=== PATIENT | female | born 1955 | race Caucasian/White ===

== ENCOUNTER → 2016-03-05 | Outpatient (CLI) | payer MEDICARE, MEDICAID ==
[~2016-03-05] MED LIST: ALPR1TAB3 PO; AMOX500C PO; ATOR1TAB18 PO; CITA20TA4 PO; CITA40TA4 PO; FLUC100T2 PO; GLIP5TAB8 PO; HUMALOG SQ; HYDR2.5O TOPICAL; LANTINJ SQ; LANTUS2P SQ; MELO7.5T4 PO; METF1000 PO; MUPI2OIN TOPICAL; NAPR250T PO; NYST15T TOPICAL; SULF500T3 PO; TRAM50TA PO; TRAZ100T4 PO; TRAZ50TA12 PO; TRIA40P I-ARTICULR; XARE20TA PO; ZOLP10TA3 PO; [UNRECOGNIZED DRUG - CODE] TOPICAL
[2016-03-05 16:03] LABS: HEMATOCRIT 40.4 % (35.0-46.0); MEAN CELL VOLUME 89.6 FL (80.0-100.0); MEAN CORPUSCULAR HEMOGLOBIN 29.6 PG (27.0-34.0); MEAN CORPUSCULAR HGB CONC 33.1 % (32.0-36.0); PLATELET COUNT 247 TH/MM3 (150-450); RED BLOOD COUNT 4.51 MIL/MM3 (4.00-5.30); REVIEW FLAG FINAL
[2016-03-05 16:17] LABS: ALKALINE PHOSPHATASE 118 U/L (45-117); ALT (GPT) 27 U/L (10-53); ANION GAP 7 MEQ/L (5-15); AST (GOT) 19 U/L (15-37); BICARBONATE 25.5 MEQ/L (21.0-32.0); BLOOD UREA NITROGEN 13 MG/DL (7-18); CHLORIDE 106 MEQ/L (98-107); GLOMERULAR FILTRATION RATE 50 ML/MIN (>89); GLUCOSE,FASTING 210 MG/DL (74-99); HDL CHOLESTEROL 55.1 MG/DL (40.0-60.0); LDL CHOLESTEROL 50 MG/DL (0-99); POTASSIUM 3.8 MEQ/L (3.5-5.1); SODIUM (NA) 138 MEQ/L (136-145); TOTAL BILIRUBIN ADULT 0.7 MG/DL (0.2-1.0)
[2016-03-05 17:30] LABS: HEMOGLOBIN A1a 1.2 %; HEMOGLOBIN A1b 2.5 %; HEMOGLOBIN Ao 79.4 %; HEMOGLOBIN LA1C 2.8 %; HEMOGLOBIN P3 4.4 %
== END ==
LOC: PLAB 12:02
PROVIDERS: ATTEND Family Medicine
DX: E11.9 Type 2 diabetes mellitus without complications (principal)
CPT/HCPCS: 36415; 80053; 80061; 83036; 85027

== ENCOUNTER → 2016-06-26 | Outpatient (CLI) | payer MEDICARE, MEDICAID ==
[~2016-06-26] MED LIST changes: +INSU10IN SQ; -LANTUS2P SQ; +MESA4ENE2 RECTAL; +PRED10 PO; +TRAZ100T6 PO
[2016-06-26 17:01] LABS: ANION GAP 8 MEQ/L (5-15); BICARBONATE 24.3 MEQ/L (21.0-32.0); BLOOD UREA NITROGEN 20 MG/DL (7-18); CHLORIDE 106 MEQ/L (98-107); POTASSIUM 4.9 MEQ/L (3.5-5.1); SODIUM (NA) 138 MEQ/L (136-145)
[2016-06-26 17:07] LABS: ALKALINE PHOSPHATASE 113 U/L (45-117); ALT (GPT) 18 U/L (10-53); AST (GOT) 19 U/L (15-37); GLOMERULAR FILTRATION RATE 34 ML/MIN (>89); TOTAL BILIRUBIN ADULT 0.2 MG/DL (0.2-1.0)
== END ==
LOC: PLAB 15:20
PROVIDERS: ATTEND Family Medicine
DX: B37.9 Candidiasis, unspecified (principal)
CPT/HCPCS: 36415; 80053

== ENCOUNTER → 2016-07-29 | Outpatient (CLI) | payer MEDICARE, MEDICAID ==
[~2016-07-29] MED LIST changes: -TRAZ50TA12 PO
[2016-07-29 20:10] LABS: HEMOGLOBIN A1a 1.3 %; HEMOGLOBIN A1b 2.3 %; HEMOGLOBIN Ao 80.2 %; HEMOGLOBIN LA1C 3.1 %; HEMOGLOBIN P3 4.6 %
== END ==
LOC: PLAB 15:53
PROVIDERS: ATTEND Family Medicine
DX: E11.9 Type 2 diabetes mellitus without complications (principal)
CPT/HCPCS: 36415; 83036

== ENCOUNTER → 2016-08-13 | Outpatient (CLI) | payer MEDICARE, MEDICAID ==
[~2016-08-13] MED LIST changes: -AMOX500C PO; -CITA20TA4 PO; -FLUC100T2 PO; -GLIP5TAB8 PO; -HYDR2.5O TOPICAL; -INSU10IN SQ; -MESA4ENE2 RECTAL; -METF1000 PO; -NAPR250T PO; -NYST15T TOPICAL; -PRED10 PO; -TRAM50TA PO; -TRAZ100T6 PO; -TRIA40P I-ARTICULR; -ZOLP10TA3 PO; -[UNRECOGNIZED DRUG - CODE] TOPICAL
[2016-08-13 16:51] LABS: AUTOMATED NEUTROPHIL # 6.6 TH/MM3 (1.8-7.7); BASOPHIL # 0.1 TH/MM3 (0-0.2); BASOPHIL % 0.8 % (0.0-2.0); EOSINOPHIL # 0.3 TH/MM3 (0-0.4); EOSINOPHIL % 3.1 % (0.0-4.0); HEMATOCRIT 39.5 % (35.0-46.0); HEMO FLAGS DIFF FINAL; LYMPH % 23.3 % (9.0-44.0); LYMPHOCYTE # 2.3 TH/MM3 (1.0-4.8); MEAN CELL VOLUME 90.6 FL (80.0-100.0); MEAN CORPUSCULAR HEMOGLOBIN 30.1 PG (27.0-34.0); MEAN CORPUSCULAR HGB CONC 33.2 % (32.0-36.0); MONO % 5.8 % (0.0-8.0); PLATELET COUNT 269 TH/MM3 (150-450); RED BLOOD COUNT 4.36 MIL/MM3 (4.00-5.30); WHITE BLOOD COUNT 9.8 TH/MM3 (4.0-11.0)
== END ==
LOC: PLAB 14:09
PROVIDERS: ATTEND Family Medicine
DX: K51.90 Ulcerative colitis, unspecified, without complications (principal)
CPT/HCPCS: 36415; 85025

== ENCOUNTER 2016-08-23 18:29 | Inpatient (IN) | payer MEDICARE, OTHER ==
[~2016-08-23] VITALS: Ht 175.3 cm; Wt 92.0 kg
[~2016-08-23 18:29] MED LIST changes: -HUMALOG SQ; +INSU10IN SQ
[2016-08-23 18:34] VITALS: BP 132/65; PULSE 104; RESP 26; TEMP 98.2; O2SAT 98
--- NOTE | 2016-08-23 18:40 | PD ---
Physical Exam Narrative 60 y/o female w/ hx of ulcerative colitis, DM, presents for evaluation of abdominal, anxiety, hyperglycemia. Vital signs reviewed. Seen at triage desk. Awaiting bed placement. Data Data Last Documented VS Vital Signs Date Time Temp Pulse Resp B/P Pulse Ox O2 Delivery O2 Flow Rate FiO2 08/23/16 18:34 98.2 104 26 132/65 98 MDM Medical Record Reviewed: Yes Supervised Visit with ORQUIDEA: No Sonu Romero Aug 23, 2016 18:40
[2016-08-23 19:01] VITALS: BP 130/63; PULSE 59; RESP 18; O2SAT 100
[2016-08-23] MEDS ORDERED: SODIUM CHLOR 0.9% 1000 ML INJ 1,000 ML IV SCH (19:18)
[2016-08-23] MEDS ORDERED: PRED10 PO (19:22)
[2016-08-23] MEDS ORDERED: LANTINJ SQ (19:22)
[2016-08-23] MEDS ORDERED: HUMALOG SQ (19:22)
[2016-08-23] MEDS ORDERED: ONDANSETRON HCL 4 MG/2 ML VIAL IVP ONE (19:30)
[2016-08-23] MEDS ORDERED: SODIUM CHLORIDE 0.9% FLUSH 10 ML FLUSH IV FLUSH PRN ×2 (19:30→22:00)
[2016-08-23] MEDS ORDERED: MORPHINE SULFATE 4 MG/ML INJ IV PUSH ONE (19:30)
[2016-08-23 19:58] VITALS: BP 122/62; PULSE 50; RESP 20; O2SAT 100
[2016-08-23 20:02] LABS: AUTOMATED NEUTROPHIL # 8.4 TH/MM3 (1.8-7.7); BASOPHIL % 0.1 % (0.0-2.0); HEMATOCRIT 39.2 % (35.0-46.0); HEMO FLAGS DIFF FINAL; LYMPH % 7.7 % (9.0-44.0); LYMPHOCYTE # 0.7 TH/MM3 (1.0-4.8); MEAN CELL VOLUME 91.8 FL (80.0-100.0); MEAN CORPUSCULAR HEMOGLOBIN 29.8 PG (27.0-34.0); MEAN CORPUSCULAR HGB CONC 32.5 % (32.0-36.0); MONO % 2.5 % (0.0-8.0); NEUT % 89.7 % (16.0-70.0); PLATELET COUNT 279 TH/MM3 (150-450); RED BLOOD COUNT 4.27 MIL/MM3 (4.00-5.30); RED CELL DISTRIBUTION WIDTH 13.8 % (11.6-17.2); WHITE BLOOD COUNT 9.3 TH/MM3 (4.0-11.0)
[2016-08-23 20:14] LABS: APTT (PATIENT) 23.5 SEC (24.3-30.1); PROTHROMBIN TIME - PATIENT 10.7 SEC (9.8-11.6)
[2016-08-23 20:26] LABS: ALKALINE PHOSPHATASE 104 U/L (45-117); ALT (GPT) 13 U/L (10-53); ANION GAP 12 MEQ/L (5-15); AST (GOT) 5 U/L (15-37); BICARBONATE 21.5 MEQ/L (21.0-32.0); BLOOD UREA NITROGEN 34 MG/DL (7-18); CHLORIDE 92 MEQ/L (98-107); GLOMERULAR FILTRATION RATE 26 ML/MIN (>89); SODIUM (NA) 125 MEQ/L (136-145); TOTAL BILIRUBIN ADULT 0.3 MG/DL (0.2-1.0)
[2016-08-23 20:27] LABS: POTASSIUM 4.7 MEQ/L (3.5-5.1)
[2016-08-23] MEDS ORDERED: MESA4ENE2 RECTAL (20:37)
[2016-08-23] MEDS ORDERED: SODIUM CHLOR 0.9% 1000 ML INJ 1,000 ML IV ONE (20:45)
[2016-08-23] MEDS ORDERED: INSULIN HUMAN REGULAR 1,000 UNITS/10 ML VIAL SQ ONE (20:45)
--- NOTE | 2016-08-23 20:47 | PD ---
HPI Chief Complaint: Abdominal Pain Time Seen by Provider: 19:06 Travel History International Travel<30 days: No Contact w/Intl Traveler<30days: No Traveled to known affect area: No History of Present Illness HPI Patient is a 60 year old female with history of UC and DM II, presents to ER with c/o of abdominal pain for the past 3 weeks. Patient reports that she has been following up with her bioinformatics research technician, Dr. Eren Alvarez, reports that he started her on a course of prednisone on August 16, 2016 (60 mg 7 days, 50 mg in 7 days, 40 mg 7 days...). Patient reports that the steroids are not helping her with her pain. Patient reports that she is still having increased lower abdominal pain and cramping and diarrhea. Patient reports that she has been having multiple bouts of diarrhea all day, reports max of around 5 episodes of diarrhea. Patient reports that with this steroids, she has not been able to control her blood sugars with her insulin. She did give herself 15 units of insulin this morning. Patient with no fever/chills. No other c/o. PFSH Past Medical History Hx Anticoagulant Therapy: Yes (XARALTO) Arthritis: No Asthma: No Autoimmune Disease: No Blood Disorders: No Bipolar Disorder: Yes Anxiety: Yes Depression: Yes Heart Rhythm Problems: No Cancer: No Cardiovascular Problems: No High Cholesterol: Yes (on Lipitor) Chemotherapy: No Chest Pain: Yes (angina sometimes) Congestive Heart Failure: No COPD: No Cerebrovascular Accident: No Diabetes: Yes Patient Takes Glucophage: No Diminished Hearing: No Deep Vein Thrombosis: Yes (STOMACH AND INTO CHEST) Endocrine: Yes (diabetes since 2001) Gastrointestinal Disorders: Yes GERD: No Glaucoma: No Genitourinary: No Headaches: Yes Hepatitis: No Hiatal Hernia: No Hypertension: No Immune Disorder: No Kidney Stones: No Musculoskeletal: Yes (arthritis in both knees) Neurologic: No Psychiatric: Yes (depression and anxiety, told "bipolar") Reproductive: No Respiratory: Yes (PE at 29 years of age) Integumentary: Yes (HERPES) Immunizations Current: Yes Myocardial Infarction: No Radiation Therapy: No Renal Failure: No Seizures: No Sickle Cell Disease: No Sleep Apnea: No Thyroid Disease: No Ulcer: Yes (ULCERATIVE COLLITIS) Tetanus Vaccination: > 5 Years Influenza Vaccination: Yes ?: Not Menopausal: Yes Tubal Ligation: Yes Past Surgical History Abdominal Surgery: Yes (LARGE INTESTINE REMOVED) AICD: No Cardiac Surgery: No Ear Surgery: No Endocrine Surgery: No Eye Surgery: No Genitourinary Surgery: No Gynecologic Surgery: Yes (TUBAL LIGATION) Hysterectomy: Yes Neurologic Surgery: No Oral Surgery: No Pacemaker: No Thoracic Surgery: No Other Surgery: Yes (DILITATION OF ESOPHAGUS) Social History Alcohol Use: No Tobacco Use: No Substance Use: No Allergies-Medications (Allergen,Severity, Reaction): Coded Allergies: No Known Allergies (Verified , 08/23/16) Reported Meds & Prescriptions Reported Meds & Active Scripts Active Humalog Kwikpen Pen Inj (Insulin Lispro (Human) Inj) 600 Unit/3 Ml Pen 5 Units SQ AC DINNER Meloxicam 7.5 Mg Tab 15 Mg PO DAILY Mupirocin Topical (Mupirocin) 2 % Oint 1 Applic TOPICAL BID Alprazolam 1 Mg Tab 1 Mg PO Q8H PRN Atorvastatin (Atorvastatin Calcium) 80 Mg Tab 80 Mg PO HS Xarelto (Rivaroxaban) 20 Mg Tab 20 Mg PO DAILY Reported Mesalamine Enema (Mesalamine) 4 Gm/60 Ml Enem 4 Gm RECTAL HS Humalog Inj (Insulin Human Lispro) 1,000 Unit/10 Ml Vial 5 Units SQ AC DINNER Prednisone 10 Mg Tab 10 Mg PO DAILY Lantus Solostar Pen Inj (Insulin Glargine) 300 Unit/3 Ml Pen 15 Units SQ HS Sulfasalazine Unknown Strength Tab Unknown Dose PO Q8H Review of Systems General / Constitutional: No: Fever Eyes: No: Visual changes HENT: No: Headaches Cardiovascular: No: Chest Pain or Discomfort Respiratory: No: Shortness of Breath Gastrointestinal: Positive: Diarrhea, Abdominal Pain Genitourinary: No: Dysuria Musculoskeletal: No: Pain Skin: No Rash Neurologic: No: Weakness Psychiatric: Positive: Anxiety, No: Depression Endocrine: No: Polydipsia Hematologic/Lymphatic: No: Easy Bruising Physical Exam Narrative GENERAL: Moderate distress SKIN: Focused skin assessment warm/dry. HEAD: Atraumatic. Normocephalic. EYES: Pupils equal and round. No scleral icterus. No injection or drainage. ENT: No nasal bleeding or discharge. Mucous membranes pink and moist. NECK: Trachea midline. No JVD. CARDIOVASCULAR: Regular rate and rhythm. No murmur appreciated. RESPIRATORY: No accessory muscle use. Clear to auscultation. Breath sounds equal bilaterally. GASTROINTESTINAL: Abdomen soft, non-tender, patient with increased tenderness to lower abdomen MUSCULOSKELETAL: No obvious deformities. No clubbing. No cyanosis. No edema. NEUROLOGICAL: Awake and alert. No obvious cranial nerve deficits. Motor grossly within normal limits. Normal speech. PSYCHIATRIC: anxious on exam Data Data Last Documented VS Vital Signs Date Time Temp Pulse Resp B/P Pulse Ox O2 Delivery O2 Flow Rate FiO2 08/23/16 19:58 50 20 122/62 100 Room Air 08/23/16 18:34 98.2 Orders Complete Blood Count With Diff (08/23/16 19:18) Comprehensive Metabolic Panel (08/23/16 19:18) Lipase (08/23/16 19:18) Lactic Acid (08/23/16 19:18) Prothrombin Time / Inr (Pt) (08/23/16 19:18) Act Partial Throm Time (Ptt) (08/23/16 19:18) Urinalysis - C+S If Indicated (08/23/16 19:18) Iv Access Insert/Monitor (08/23/16 19:18) Ecg Monitoring (08/23/16 19:18) Oximetry (08/23/16 19:18) Morphine Inj (Morphine Inj) (08/23/16 19:30) Ondansetron Inj (Zofran Inj) (08/23/16 19:30) Sodium Chlor 0.9% 1000 Ml Inj (Ns 1000 M (08/23/16 19:18) Sodium Chloride 0.9% Flush (Ns Flush) (08/23/16 19:30) Electrocardiogram (08/23/16 19:18) Bedside Glucose JOANNE.AC&HS (08/23/16 19:18) Ct Abd/Pel W/O Iv Contrast (08/23/16 20:30) Insulin Human Regular Inj (Novolin R Inj (08/23/16 20:45) Sodium Chlor 0.9% 1000 Ml Inj (Ns 1000 M (08/23/16 20:45) Piperacil-Tazo 3.375 Gm Premix (Zosyn 3. (08/23/16 21:00) Sodium Chloride 0.9% Flush (Ns Flush) (08/23/16 21:00) Blood Culture (08/23/16 20:47) Labs Laboratory Tests Test 08/23/16 19:30 White Blood Count 9.3 TH/MM3 Red Blood Count 4.27 MIL/MM3 Hemoglobin 12.7 GM/DL Hematocrit 39.2 % Mean Corpuscular Volume 91.8 FL Mean Corpuscular Hemoglobin 29.8 PG Mean Corpuscular Hemoglobin 32.5 % Concent Red Cell Distribution Width 13.8 % Platelet Count 279 TH/MM3 Mean Platelet Volume 9.9 FL Neutrophils (%) (Auto) 89.7 % Lymphocytes (%) (Auto) 7.7 % Monocytes (%) (Auto) 2.5 % Eosinophils (%) (Auto) 0.0 % Basophils (%) (Auto) 0.1 % Neutrophils # (Auto) 8.4 TH/MM3 Lymphocytes # (Auto) 0.7 TH/MM3 Monocytes # (Auto) 0.2 TH/MM3 Eosinophils # (Auto) 0.0 TH/MM3 Basophils # (Auto) 0.0 TH/MM3 CBC Comment DIFF FINAL Differential Comment Prothrombin Time 10.7 SEC Prothromb Time International 1.0 RATIO Ratio Activated Partial 23.5 SEC Thromboplast Time Sodium Level 125 MEQ/L Potassium Level 4.7 MEQ/L Chloride Level 92 MEQ/L Carbon Dioxide Level 21.5 MEQ/L Anion Gap 12 MEQ/L Blood Urea Nitrogen 34 MG/DL Creatinine 1.93 MG/DL Estimat Glomerular Filtration 26 ML/MIN Rate Random Glucose 842 MG/DL Lactic Acid Level 3.6 mmol/L Calcium Level 9.1 MG/DL Total Bilirubin 0.3 MG/DL Aspartate Amino Transf 5 U/L (AST/SGOT) Alanine Aminotransferase 13 U/L (ALT/SGPT) Alkaline Phosphatase 104 U/L Total Protein 6.7 GM/DL Albumin 3.1 GM/DL Lipase 191 U/L [facility] [place] Medical Decision Making Medical Screen Exam Complete: Yes Emergency Medical Condition: Yes Interpretation(s) EKG at 2002: Sinus nisha at 44bpm, qt/qtc: 453/405, no acute st or t wave changes Vital Signs Date Time Temp Pulse Resp B/P Pulse Ox O2 Delivery O2 Flow Rate FiO2 08/23/16 19:58 50 20 122/62 100 Room Air 08/23/16 19:01 59 18 130/63 100 08/23/16 18:34 98.2 104 26 132/65 98 Differential Diagnosis Ulcerative colitis, electrolyte abnormality, hyperglycemia, anxiety reaction, diverticulitis, pneumatosis intestinalis, ischemic bowel Narrative Course 60 year old female who presents to ER with c/o of abdominal pain with hyperglycemia. Patient was placed on equipment monitor phototypesetting upon presentation to the ER. EKG obtained. BS "High" on glucometer. IVF administered. Labs including UA ordered. CT of abdomen and pelvis ordered to evaluate her abdominal pain. BS 842- insulin 10 units ordered, [address] pending Lactic acid 3.6 - will panculture and administer IVF Vital Signs Date Time Temp Pulse Resp B/P Pulse Ox O2 Delivery O2 Flow Rate FiO2 08/23/16 19:58 50 20 122/62 100 Room Air 08/23/16 19:01 59 18 130/63 100 08/23/16 18:34 98.2 104 26 132/65 98 Laboratory Tests Test 08/23/16 19:30 White Blood Count 9.3 TH/MM3 (4.0-11.0) Red Blood Count 4.27 MIL/MM3 (4.00-5.30) Hemoglobin 12.7 GM/DL (11.6-15.3) Hematocrit 39.2 % (35.0-46.0) Mean Corpuscular Volume 91.8 FL (80.0-100.0) Mean Corpuscular Hemoglobin 29.8 PG (27.0-34.0) Mean Corpuscular Hemoglobin 32.5 % Concent (32.0-36.0) Red Cell Distribution Width 13.8 % (11.6-17.2) Platelet Count 279 TH/MM3 (150-450) Mean Platelet Volume 9.9 FL (7.0-11.0) Neutrophils (%) (Auto) 89.7 % (16.0-70.0) Lymphocytes (%) (Auto) 7.7 % (9.0-44.0) Monocytes (%) (Auto) 2.5 % (0.0-8.0) Eosinophils (%) (Auto) 0.0 % (0.0-4.0) Basophils (%) (Auto) 0.1 % (0.0-2.0) Neutrophils # (Auto) 8.4 TH/MM3 (1.8-7.7) Lymphocytes # (Auto) 0.7 TH/MM3 (1.0-4.8) Monocytes # (Auto) 0.2 TH/MM3 (0-0.9) Eosinophils # (Auto) 0.0 TH/MM3 (0-0.4) Basophils # (Auto) 0.0 TH/MM3 (0-0.2) CBC Comment DIFF FINAL Differential Comment Prothrombin Time 10.7 SEC (9.8-11.6) Prothromb Time International 1.0 RATIO Ratio Activated Partial 23.5 SEC Thromboplast Time (24.3-30.1) Sodium Level 125 MEQ/L (136-145) Potassium Level 4.7 MEQ/L (3.5-5.1) Chloride Level 92 MEQ/L (98-107) Carbon Dioxide Level 21.5 MEQ/L (21.0-32.0) Anion Gap 12 MEQ/L (5-15) Blood Urea Nitrogen 34 MG/DL (7-18) Creatinine 1.93 MG/DL (0.50-1.00) Estimat Glomerular Filtration 26 ML/MIN (>89) Rate Random Glucose 842 MG/DL (74-106) Lactic Acid Level 3.6 mmol/L (0.4-2.0) Calcium Level 9.1 MG/DL (8.5-10.1) Total Bilirubin 0.3 MG/DL (0.2-1.0) Aspartate Amino Transf 5 U/L (15-37) (AST/SGOT) Alanine Aminotransferase 13 U/L (10-53) (ALT/SGPT) Alkaline Phosphatase 104 U/L (45-117) Total Protein 6.7 GM/DL (6.4-8.2) Albumin 3.1 GM/DL (3.4-5.0) Lipase 191 U/L (73-393) Last Impressions Abdomen/Pelvis CT 08/23/162029 Signed Impressions: Service Date/Time: Tuesday, August 23, 2016 20:52 - CONCLUSION: 1. Nonobstructive bowel gas pattern. No oral contrast was given limiting the sensitivity. 2. Unremarkable gallbladder. 3. Calcified leiomyomata in the uterus. Elliott Morillo MD WBC: 9.3, lactic acid 3.6 - patient has been pancultured, Zosyn administered for broad-spectrum coverage. Blood sugars 842: 10 units insulin administered, will continue to monitor bs Last Impressions Abdomen/Pelvis CT 08/23/162029 Signed Impressions: Service Date/Time: Tuesday, August 23, 2016 20:52 - CONCLUSION: 1. Nonobstructive bowel gas pattern. No oral contrast was given limiting the sensitivity. 2. Unremarkable gallbladder. 3. Calcified leiomyomata in the uterus. Elliott Morillo MD ct unremarkable. i did review all incidental studies with patient in detail. plan to admit for lactic acidosis and intractable abdominal pain and hyperglycemia case reviewed with dr. serra who accepts pt to service Diagnosis Primary Impression: Lactic acid increased Additional Impressions: Hyperglycemia due to type 2 diabetes mellitus Abdominal pain Renal insufficiency Hyponatremia Admitting Information Admitting Physician Requests: Observation Melisa Johnson DO Aug 23, 2016 20:47
[2016-08-23] MEDS ORDERED: SODIUM CHLORIDE 0.9% FLUSH 10 ML FLUSH IVF PRN (21:00)
[2016-08-23] MEDS ORDERED: PIPERACIL-TAZO 3.375 GM PREMIX 50 ML IV ONE (21:00)
--- NOTE | 2016-08-23 21:21 | RADRPT ---
EXAM DATE/TIME: 08/23/2016 20:52 [facility] COMPARISON: No previous studies available for comparison. INDICATIONS : Upper quadrant abdominal pain. ORAL CONTRAST: No oral contrast ingested. RADIATION DOSE: 11.85 CTDIvol (mGy) MEDICAL HISTORY : Deep venous thrombosis. Gastroesophageal reflux disease. Ulcerative colitis.Diabetes SURGICAL HISTORY : Hysterectomy. Colon resection.Tubal ligation. ENCOUNTER: Initial ACUITY: 1 week PAIN SCALE: 10/10 LOCATION: Bilateral upper quadrant TECHNIQUE: Volumetric scanning of the abdomen and pelvis was performed. Using automated exposure control and ad justment of the mA and/or kV according to patient size, radiation dose was kept as low as reasonably achievable to obtain optimal diagnostic quality images. DICOM format image data is available electro nically for review and comparison. FINDINGS: LOWER LUNGS: The visualized lower lungs are clear. LIVER: Homogeneous density without lesion. There is no dilation of the biliary tree. No calcified gallston es. SPLEEN: Normal size without lesion. PANCREAS: Within normal limits. KIDNEYS: Normal in size and shape. There is no mass, stone, or hydronephrosis. ADRENAL GLANDS: Within normal limits. VASCULAR: There is no aortic aneurysm. BOWEL/MESENTERY: The stomach, small bowel, and colon demonstrate no acute abnormality. There is no free intraperitone al air or fluid. ABDOMINAL WALL: Within normal limits. RETROPERITONEUM: There is no lymphadenopathy. BLADDER: No wall thickening or mass. REPRODUCTIVE: There are flocculent calcifications in the uterus consistent with calcified leiomyoma. INGUINAL: There is no lymphadenopathy or hernia. MUSCULOSKELETAL: Within normal limits for patient age. CONCLUSION: 1. Nonobstructive bowel gas pattern. No oral contrast was given limiting the sensitivity. 2. Unremarkable gallbladder. 3. Calcified leiomyomata in the uterus. Elliott Morillo MD on August 23, 2016 at 21:17 Board Certified Radiologist. This report was verified electronically.
[2016-08-23] MEDS ORDERED: ACETAMINOPHEN 325 MG TAB PO PRN (22:00)
[2016-08-23] MEDS ORDERED: SENNOSIDES 8.6 MG TAB PO PRN (22:00)
[2016-08-23] MEDS ORDERED: BISACODYL 10 MG SUPP RECTAL PRN (22:00)
[2016-08-23] MEDS ORDERED: LACTULOSE SYRUP 20 GM/30 ML CUP PO PRN (22:00)
[2016-08-23] MEDS ORDERED: MAGNESIUM HYDROXIDE SUSP 30 ML CUP PO PRN (22:00)
[2016-08-23 22:02] LABS: BLOOD, URINE NEG (NEG); COMMENT (UR) CULT NOT INDICATED; CULTURE IF INDICATED CULT NOT INDICATED; GLUCOSE,URINE 1000 mg/dL (NEG); KETONE, URINE NEG (NEG); MUCUS URINE FEW /lpf (OCC); NITRITE,URINE NEG (NEG); SQUAMOUS EPITHELIAL CELL URINE <1 /hpf (0-5); URINE COLOR YELLOW (YELLW/STRAW)
[2016-08-23] MEDS ORDERED: DEXTROSE 50% IN WATER 50 ML VIAL(D50) IV PRN (22:15)
[2016-08-23] MEDS ORDERED: GLUCAGON 1 MG/ML VIAL OTHER PRN (22:15)
[2016-08-23 22:25] VITALS: BP 118/58; PULSE 44; RESP 18; O2SAT 99
[2016-08-23] MEDS: ALPRAZolam 1 MG TAB PO PRN (22:40)
[2016-08-23] MEDS: SODIUM CHLOR 0.9% 1000 ML INJ 1,000 ML IV SCH (22:58)
[2016-08-23] MEDS: INSULIN DETEMIR 100 UNITS/ML VIAL SQ SCH (22:59)
[2016-08-23] MEDS: CIPROFLOXACIN 400 MG PREMIX 200 ML IV SCH (23:00)
[2016-08-23] MEDS: ENOXAPARIN SODIUM 30 MG/0.3 ML SYRINGE SQ SCH (23:00)
[2016-08-24] VITALS (7 sets, daily range): BP systolic 98–173; BP diastolic 52–79; PULSE 47–65; RESP 18–20; TEMP 97–99.5; O2SAT 96–100
[2016-08-24] MEDS: methylPREDNISolone SOD SUCC 40 MG/1 ML VIAL IV PUSH SCH ×4 (00:41→18:32)
[2016-08-24] MEDS: metroNIDAZOLE 500 MG INJ 100 ML IV SCH ×3 (00:42→16:31)
[2016-08-24] MEDS ORDERED: INSULIN ASPART 1,000 UNITS/10 ML VIAL SQ ONE (01:00)
[2016-08-24] MEDS ORDERED: TRAZ100T6 PO (01:33)
[2016-08-24 02:37] LABS: AUTOMATED NEUTROPHIL # 11.3 TH/MM3 (1.8-7.7); BASOPHIL % 0.1 % (0.0-2.0); EOSINOPHIL % 0.3 % (0.0-4.0); HEMATOCRIT 36.2 % (35.0-46.0); HEMO FLAGS DIFF FINAL; LYMPH % 14.4 % (9.0-44.0); MEAN CELL VOLUME 90.9 FL (80.0-100.0); MEAN CORPUSCULAR HGB CONC 31.9 % (32.0-36.0); NEUT % 80.2 % (16.0-70.0); PLATELET COUNT 251 TH/MM3 (150-450); RED BLOOD COUNT 3.99 MIL/MM3 (4.00-5.30); RED CELL DISTRIBUTION WIDTH 13.9 % (11.6-17.2)
--- NOTE | 2016-08-24 02:56 | HHI.HP ---
[facility] Jadyn Weiss MD Admission Diagnosis lactic acidosis Diagnoses: Chief Complaint: Severe abdominal pain with blood streaking in stools Travel History International Travel<30 Days: No Contact w/Intl Traveler <30 Da: No Traveled to Known Affected Are: No History of Present Illness Written by Susi Harrison, acting as scribe for Dr. Pino on 08/24/16 at 02:56. Ms. Lester is complaining of chest pain radiating across the top of her chest and radiating across her back. The patient reports a history of ulcerative colitis since 1999. She states that her symptoms began about two weeks ago and included severe abdominal pain and blood in the stools. She says she sees colorectal surgeon Dr. De La Rosa and last saw him two to three weeks ago. She describes that her abdomen is constantly severely painful and the pain is described as an aching pain. She also complains of diarrhea with streaks of blood in the stool. She states she's had even some jasper red rectal bleeding as well. Denies fever; reports diaphoresis and chills. Blood glucose has been reading "high" on machine. On Xarelto at home. Reports that she's been "hyperventilating" a lot and is under a great deal of stress. . Review of Systems Except as stated in HPI: all other systems reviewed are Neg Past Family Social History Past Medical History Depression Anxiety Ulcerative Colitis . Past Surgical History Right hemicolectomy BTL . Reported Medications Reported Meds & Active Scripts Active Humalog Kwikpen Pen Inj (Insulin Lispro (Human) Inj) 600 Unit/3 Ml Pen 5 Units SQ AC DINNER Meloxicam 7.5 Mg Tab 15 Mg PO DAILY Mupirocin Topical (Mupirocin) 2 % Oint 1 Applic TOPICAL BID Alprazolam 1 Mg Tab 1 Mg PO Q8H PRN Atorvastatin (Atorvastatin Calcium) 80 Mg Tab 80 Mg PO HS Xarelto (Rivaroxaban) 20 Mg Tab 20 Mg PO DAILY Reported Trazodone (Trazodone HCl) 100 Mg Tablet 100 Mg PO HS Mesalamine Enema (Mesalamine) 4 Gm/60 Ml Enem 4 Gm RECTAL HS Humalog Inj (Insulin Human Lispro) 1,000 Unit/10 Ml Vial 5 Units SQ AC DINNER Prednisone 10 Mg Tab 10 Mg PO DAILY Lantus Solostar Pen Inj (Insulin Glargine) 300 Unit/3 Ml Pen 15 Units SQ HS Sulfasalazine Unknown Strength Tab Unknown Dose PO Q8H Allergies: Coded Allergies: No Known Allergies (Verified , 08/23/16) Active Ordered Medications Current Medications Morphine Sulfate (Morphine Inj) 4 mg ONCE ONCE IV PUSH Last administered on 19:47; Start 08/23/16 at 19:30; Stop 08/23/16 at 19:31; Status DC Ondansetron HCl 4 mg 4 mg ONCE ONCE IVP Last administered on 08/23/16 19:49; Start 08/23/16 at 19:30; Stop 08/23/16 at 19:31; Status DC Sodium Chloride (NS 1000 ml Inj) 1,000 ml @ 1,000 mls/hr Q1H IV Last administered on 08/23/16 19:51; Start 08/23/16 at 19:18; Stop 08/23/16 at 20:17 ; Status DC Sodium Chloride (NS Flush) 2 ml UNSCH PRN IV FLUSH FLUSH AFTER USING IV ACCESS ; Start 08/23/16 at 19:30; Stop 08/23/16 at 22:19; Status DC Insulin Human Regular 10 units 10 units ONCE ONCE SQ Last administered on 08/23 20:49; Start 08/23/16 at 20:45; Stop 08/23/16 at 20:46; Status DC Sodium Chloride 1,000 ml @ 999 mls/hr BOLUS ONCE IV Last administered on 08/23 20:50; Start 08/23/16 at 20:45; Stop 08/23/16 at 21:45; Status DC Piperacillin Sod/ Tazobactam Sod (Zosyn 3.375 Gm Premix) 50 ml @ 100 mls/hr ONCE ONCE IV Last administered on 08/23/16 21:23; Start 08/23/16 at 21:00; Stop 08/23/16 at 21:29; Status DC Sodium Chloride 2 ml 2 ml UNSCH PRN IVF FLUSH AFTER USING IV ACCESS; Start at 21:00; Stop 08/23/16 at 22:19; Status DC Sodium Chloride (NS 1000 ml Inj) 1,000 ml @ 100 mls/hr Q10H IV Last administered on 08/23/16 22:58; Start 08/23/16 at 22:00 Sodium Chloride (NS Flush) 2 ml UNSCH PRN IV FLUSH FLUSH AFTER USING IV ACCESS ; Start 08/23/16 at 22:00 Sodium Chloride (NS Flush) 2 ml BID IV FLUSH ; Start 08/24/16 at 09:00 Acetaminophen (Tylenol) 650 mg Q4H PRN PO TEMP > 100.4; Start 08/23/16 at 22:00 Ondansetron HCl (Zofran Inj) 4 mg Q6H PRN IVP NAUSEA OR VOMITING; Start at 22:00 Enoxaparin Sodium (Lovenox Inj) 30 mg Q24H SQ Last administered on 08/23/16 23 :00; Start 08/23/16 at 23:00 Senna/Docusate Sodium (Sarah-Colace) 1 tab BID PO ; Start 08/24/16 at 09:00; Stop 08/24/16 at 09:00; Status DC Magnesium Hydroxide (Milk Of Magnesia Liq) 30 ml Q12H PRN PO MILD - MODERATE CONSTIPATION; Start 08/23/16 at 22:00 Sennosides (Senokot) 17.2 mg Q12H PRN PO MODERATE - SEVERE CONSTIPATION; Start 08/23/16 at 22:00 Bisacodyl (Dulcolax Supp) 10 mg DAILY PRN RECTAL SEVERE CONSITIPATION; Start at 22:00 Lactulose 30 ml 30 ml DAILY PRN PO SEVERE CONSITIPATION; Start 08/23/16 at 22: 00 Ciprofloxacin/ Dextrose 200 ml @ 200 mls/hr Q24H IV Last administered on 23:00; Start 08/23/16 at 23:00 Metronidazole (Flagyl 500 Mg Inj) 100 ml @ 100 mls/hr Q8H IV Last administered on 08/24/16 00:42; Start 08/24/16 at 00:00 Dextrose (D50w (Vial) Inj) 50 ml UNSCH PRN IV HYPOGLYCEMIA-SEE COMMENTS; Start 08/23/16 at 22:15 Glucagon (Glucagon Inj) 1 mg UNSCH PRN OTHER HYPOGLYCEMIA-SEE COMMENTS; Start 08/23/16 at 22:15 Insulin Aspart (NovoLOG SUPPLEMENTAL SCALE) 1 ACHS SLIDING SCALE SQ ; Start 08/24/16 at 07:00 Alprazolam (Xanax) 1 mg Q8H PRN PO ANXIETY Last administered on 08/23/16 22:40 ; Start 08/23/16 at 22:15 Mesalamine (Rowasa Enema) 4 gm HS RECTAL ; Start 08/24/16 at 21:00 Rivaroxaban (Xarelto) 20 mg DAILY PO ; Start 08/24/16 at 09:00; Stop 08/24/16 at 09:00; Status DC Insulin Detemir (Levemir Inj) 10 units Q12HR SQ Last administered on 08/23/16 22:59; Start 08/23/16 at 22:15 Methylprednisolone Sodium Succinate (SoluMEDROL INJ) 40 mg Q6HR IV PUSH Last administered on 08/24/16 00:41; Start 08/24/16 at 00:00 Insulin Aspart (NovoLOG INJ) 10 units ONCE ONCE SQ Last administered on 01:08; Start 08/24/16 at 01:00; Stop 08/24/16 at 01:01; Status DC Morphine Sulfate (Morphine Inj) 2 mg Q3H PRN IV PUSH PAIN SCALE 1 TO 5; Start 08/24/16 at 01:30 Morphine Sulfate (Morphine Inj) 4 mg Q3H PRN IV PUSH PAIN SCALE 6 TO 10; Start 08/24/16 at 01:30 Family History No family history of crohns or ulcerative colitis Family history of diabetes mellitus . Social History Tobacco: none Alcohol: none Illicit drugs: marijuana; last use one month ago Physical Exam Vital Signs Vital Signs Date Time Temp Pulse Resp B/P Pulse Ox O2 Delivery O2 Flow Rate FiO2 08/23/16 22:25 44 18 118/58 99 Room Air 08/23/16 19:58 50 20 122/62 100 Room Air 08/23/16 19:01 59 18 130/63 100 08/23/16 18:34 98.2 104 26 132/65 98 Physical Exam GENERAL: This is a chronically ill-appearing older female patient, in no apparent distress. SKIN: No rashes, ecchymoses or lesions. Cool and dry. HEAD: Atraumatic. Normocephalic. EYES: No scleral icterus. No injection or drainage. ENT: Nose without bleeding, purulent drainage. NECK: Trachea midline. No JVD or lymphadenopathy. CARDIOVASCULAR: Regular rate and rhythm without murmurs, gallops, or rubs. RESPIRATORY: Clear to auscultation. Breath sounds equal bilaterally. No wheezes , rales, or rhonchi. GASTROINTESTINAL: Abdomen soft, tender, nondistended. No guarding. MUSCULOSKELETAL: Extremities without clubbing, cyanosis, or edema. No calf tenderness. NEUROLOGICAL: Awake and alert. Motor and sensory grossly within normal limits. Normal speech. . Laboratory Laboratory Tests Test 08/23/16 08/23/16 19:30 21:05 White Blood Count 9.3 Red Blood Count 4.27 Hemoglobin 12.7 Hematocrit 39.2 Mean Corpuscular Volume 91.8 Mean Corpuscular Hemoglobin 29.8 Mean Corpuscular Hemoglobin 32.5 Concent Red Cell Distribution Width 13.8 Platelet Count 279 Mean Platelet Volume 9.9 Neutrophils (%) (Auto) 89.7 Lymphocytes (%) (Auto) 7.7 Monocytes (%) (Auto) 2.5 Eosinophils (%) (Auto) 0.0 Basophils (%) (Auto) 0.1 Neutrophils # (Auto) 8.4 Lymphocytes # (Auto) 0.7 Monocytes # (Auto) 0.2 Eosinophils # (Auto) 0.0 Basophils # (Auto) 0.0 CBC Comment DIFF FINAL Differential Comment Prothrombin Time 10.7 Prothromb Time International 1.0 Ratio Activated Partial 23.5 Thromboplast Time Sodium Level 125 Potassium Level 4.7 Chloride Level 92 Carbon Dioxide Level 21.5 Anion Gap 12 Blood Urea Nitrogen 34 Creatinine 1.93 Estimat Glomerular Filtration 26 Rate Random Glucose 842 Lactic Acid Level 3.6 Calcium Level 9.1 Total Bilirubin 0.3 Aspartate Amino Transf 5 (AST/SGOT) Alanine Aminotransferase 13 (ALT/SGPT) Alkaline Phosphatase 104 Total Protein 6.7 Albumin 3.1 Lipase 191 Urine Color YELLOW Urine Turbidity CLEAR Urine pH 5.0 Urine Specific [place] 1.025 Urine Protein NEG Urine Glucose (UA) 1000 Urine Ketones NEG Urine Occult Blood NEG Urine Nitrite NEG Urine Bilirubin NEG Urine Urobilinogen LESS THAN 2.0 Urine Leukocyte Esterase NEG Urine WBC 1 Urine Squamous Epithelial <1 Cells Urine Mucus FEW Microscopic Urinalysis Comment CULT NOT INDICATED Date/Time Procedure Status Source Growth 08/23/16 21:20 Aerobic Blood Culture Received Blood Peripheral Pending 08/23/16 21:20 Anaerobic Blood Culture Received Blood Peripheral Pending Result Diagram: 08/23/16192908/23/161929 Imaging Last Impressions Abdomen/Pelvis CT 08/23/162029 Signed Impressions: Service Date/Time: Tuesday, August 23, 2016 20:52 - CONCLUSION: 1. Nonobstructive bowel gas pattern. No oral contrast was given limiting the sensitivity. 2. Unremarkable gallbladder. 3. Calcified leiomyomata in the uterus. Elliott Morillo MD . Assessment and Plan Assessment and Plan Ms. Lester is a 60 y/o female with a history of ulcerative colitis here for exacerbation: Sepsis Ulcerative Colitis Exacerbation - elevated lactic acid - Morphine 2 - 4 mg IV q3h PRN pain - consult gastroenterology - Antibiotics: Metronidazole 500 mg IV q8h, renally adjusted Cipro at 400 mg IV q24h - Solu-Medrol 40 mg IV q6h Atypical chest pain - ACS vs referred GI pain - Serial cardiac enzymes and EKGs to r/o ACS - continuous cardiac telemetry to monitor for cardiac arrhythmias Type 2 diabetes mellitus with hyperglycemia - Levemir 10 units subq q12h - Accu checks AC and HS with medium dose Novolog coverage - Hypoglycemia protocol Hyponatremia - initial sodium 125 - NS at 100 cc/hr - repeat BMP and follow trends in sodium level and replace as indicated Acute kidney injury - BUN 34, Creatinine 1.93, eGFR 26 - IVF hydration - recheck BMP in a.m. - repeat BMP and follow trends in renal indices - avoid nephrotoxins DVT prophylaxis Lovenox 30 mg subq q24h . This note was transcribed by misty Harrison. I, Dr. Dionte Shields personally performed the history, physical exam, and medical decision making; and confirmed the accuracy of the information in the transcribed note. Authenticated by Dr. Dionte Shields on 08/24/16 at 07:46. Discussed Condition With patient, ER physician, and RN . Physician Certification 2 Midnight Certification Type: Admission for Inpatient Services Order for Inpatient Services The services are ordered in accordance with Medicare regulations or non- Medicare payer requirements, as applicable. In the case of services not specified as inpatient-only, they are appropriately provided as inpatient services in accordance with the 2-midnight benchmark. Estimated LOS (days): 3 days is the estimated time the patient will need to remain in the hospital, assuming treatment plan goals are met and no additional complications. Post-Hospital Plan: Home Susi Harrison Aug 24, 2016 02:56 Dionte Hill MD Aug 24, 2016 07:46
[2016-08-24 03:04] LABS: ALKALINE PHOSPHATASE 86 U/L (45-117); ALT (GPT) 11 U/L (10-53); ANION GAP 9 MEQ/L (5-15); AST (GOT) 4 U/L (15-37); BICARBONATE 21.5 MEQ/L (21.0-32.0); BLOOD UREA NITROGEN 28 MG/DL (7-18); CHLORIDE 104 MEQ/L (98-107); GLOMERULAR FILTRATION RATE 35 ML/MIN (>89); POTASSIUM 3.7 MEQ/L (3.5-5.1); SODIUM (NA) 134 MEQ/L (136-145); TOTAL BILIRUBIN ADULT 0.3 MG/DL (0.2-1.0)
[2016-08-24 04:20] LABS: LACTIC ACID GHOST NOT REPORTABLE
[2016-08-24 04:41] LABS: C. DIFF EPI 027 PRESUMPTIVE NEGATIVE (NEGATIVE); C. DIFF TOXIN PCR NEGATIVE (NEGATIVE)
[2016-08-24 05:29] LABS: CREATINE KINASE 44 U/L (26-192)
[2016-08-24] MEDS: INSULIN ASPART SUPPLEMENTAL SCALE SQ SCH ×4 (06:55→21:06)
--- NOTE | 2016-08-24 07:00 | EKG ---
Date Performed: 08/23/2016 Time Performed: 20:03:47 PTAGE: 60 years EKG: SINUS BRADYCARDIA WITH OCCASIONAL SUPRAVENTRICULAR PREMATURE COMPLEXES BORDERLINE ECG CAITLYN RED TO PRIOR ELECTROCARDIOGRAM, Rate has slowed. PREVIOUS TRACING : 05/06/2009 22.02 DOCTOR: Jose Denny Interpretating Date/Time 08/24/2016 06:59:37
[2016-08-24] MEDS: SODIUM CHLOR 0.9% 1000 ML INJ 1,000 ML IV SCH ×2 (08:43→18:32)
[2016-08-24] MEDS: INSULIN DETEMIR 100 UNITS/ML VIAL SQ SCH ×2 (08:46→21:00)
[2016-08-24] MEDS: SODIUM CHLORIDE 0.9% FLUSH 10 ML FLUSH IV FLUSH SCH ×2 (08:46→21:00)
[2016-08-24] MEDS ORDERED: DOCUSATE SODIUM 50 MG/SENNA 8.6 MG TAB PO SCH (09:00)
[2016-08-24] MEDS ORDERED: RIVAROXABAN 20 MG TAB PO SCH (09:00)
--- NOTE | 2016-08-24 09:39 | EKG ---
Date Performed: 08/24/2016 Time Performed: 04:50:44 PTAGE: 60 years EKG: Sinus bradycardia Incomplete right bundle branch block Inferior and anterior T wave changes are nonspecific Low QRS voltages in precordial leads Borderline ECG Compared to prior electrocardiog anish, incomplete right bundle branch block is present. PREVIOUS TRACING : 08/23/2016 20.03 DOCTOR: Jose Denny Interpretating Date/Time 08/24/2016 09:36:52
--- NOTE | 2016-08-24 10:40 | PD.PN.STU ---
Subjective Remarks S: Patient is a 60 year old female who presents for GI consult. She states that she came into the hospital yesterday with severe dull abdominal pain in her lower abdomen and blood in the stools lasting 2 weeks. She graded the pain 10/10 upon arrival. She notes that she saw red blood in the stool as well as on the paper after she wiped. Today, she says that she's currently not in pain, but has mild discomfort as it feels like indigestion. She had a bowel movement this morning and states that she didn't see any blood, and it was a solid stool. She denies dysphagia, vomiting but has some nausea. She denies fever and chills , diarrhea, but notes some recent constipation. She denies chest pain, SOB, headaches. She says that this feels the same as the last time she had a flare up of her ulcerative colitis PMH: ulcerative colitis, diabetes, depression and anxiety. PSHx: Right hemicolectomy secondary to abdominal blood clot and bilateral tubal ligation FHx: Diabetes NKDA SHx: no tobacco or alcohol use. Objective Vitals Vital Signs Date Time Temp Pulse Resp B/P Pulse Ox O2 Delivery O2 Flow Rate FiO2 08/24/16 08:05 98.8 60 18 133/63 97 08/24/16 05:30 98.0 61 18 98/54 96 08/24/16 03:19 98.4 57 18 105/52 100 08/23/16 22:25 44 18 118/58 99 Room Air 08/23/16 19:58 50 20 122/62 100 Room Air 08/23/16 19:01 59 18 130/63 100 08/23/16 18:34 98.2 104 26 132/65 98 I/O 08/23/16 08/23/16 08/23/16 08/24/16 08/24/16 08/24/16 07:00 15:00 23:00 07:00 15:00 23:00 Intake Total 700 ml Balance 700 ml Intake IV Total 700 ml # Voids 2 # Bowel Movements 1 O: Gen: WDWN, not in acute distress HEENT: negative Neck: supple, neg LAD Heart: RRR, no murmurs rubs or thrills Lungs: CTA Abdomen: soft, mild tenderness upon palpation of hypogastric region.nondistended ; normal bowel sounds Ext: no edema or cyanosis Neuro: alert and oriented x3; no focal deficits. Result Diagram: 08/24/1620908/24/16209 Other Results Laboratory Tests Test 08/23/16 08/23/16 08/24/16 19:30 21:05 02:10 Neutrophils (%) (Auto) 89.7 % 80.2 % (16.0-70.0) (16.0-70.0) Lymphocytes (%) (Auto) 7.7 % (9.0-44.0) Neutrophils # (Auto) 8.4 TH/MM3 11.3 TH/MM3 (1.8-7.7) (1.8-7.7) Lymphocytes # (Auto) 0.7 TH/MM3 (1.0-4.8) Activated Partial 23.5 SEC Thromboplast Time (24.3-30.1) Sodium Level 125 MEQ/L 134 MEQ/L (136-145) (136-145) Chloride Level 92 MEQ/L (98-107) Blood Urea Nitrogen 34 MG/DL (7-18) 28 MG/DL (7-18) Creatinine 1.93 MG/DL 1.53 MG/DL (0.50-1.00) (0.50-1.00) Estimat Glomerular Filtration 26 ML/MIN (>89) 35 ML/MIN (>89) Rate Random Glucose 842 MG/DL 415 MG/DL (74-106) (74-106) Lactic Acid Level 3.6 mmol/L 2.7 mmol/L (0.4-2.0) (0.4-2.0) Aspartate Amino Transf 5 U/L (15-37) 4 U/L (15-37) (AST/SGOT) Albumin 3.1 GM/DL 2.6 GM/DL (3.4-5.0) (3.4-5.0) Urine Glucose (UA) 1000 mg/dL (NEG) Urine Mucus FEW /lpf (OCC) White Blood Count 14.0 TH/MM3 (4.0-11.0) Red Blood Count 3.99 MIL/MM3 (4.00-5.30) Mean Corpuscular Hemoglobin 31.9 % Concent (32.0-36.0) Calcium Level 7.9 MG/DL (8.5-10.1) Troponin I LESS THAN 0.02 NG/ML (0.02-0.05) Total Protein 6.0 GM/DL (6.4-8.2) Imaging Last 72 hours Impressions Abdomen/Pelvis CT 08/23/162029 Signed Impressions: Service Date/Time: Tuesday, August 23, 2016 20:52 - CONCLUSION: 1. Nonobstructive bowel gas pattern. No oral contrast was given limiting the sensitivity. 2. Unremarkable gallbladder. 3. Calcified leiomyomata in the uterus. Elliott Morillo MD Medications and IVs Current Medications Medications (Trade) Dose Ordered Sig/Ani Route Start Time Stop Time Status Last Admin (NS 1000 ml Inj) 1,000 ml @ 100 mls/hr Q10H IV 08/23/16 22:00 08/23/16 22:58 (NS Flush) 2 ml UNSCH PRN IV FLUSH 08/23/16 22:00 (NS Flush) 2 ml BID IV FLUSH 08/24/16 09:00 (Tylenol) 650 mg Q4H PRN PO 08/23/16 22:00 (Zofran Inj) 4 mg Q6H PRN IVP 08/23/16 22:00 (Lovenox Inj) 30 mg Q24H SQ 08/23/16 23:00 08/23/16 23:00 (Milk Of Magnesia Liq) 30 ml Q12H PRN PO 08/23/16 22:00 (Senokot) 17.2 mg Q12H PRN PO 08/23/16 22:00 (Dulcolax Supp) 10 mg DAILY PRN RECTAL 08/23/16 22:00 Lactulose 30 ml 30 ml DAILY PRN PO 08/23/16 22:00 Ciprofloxacin/ Dextrose 200 ml @ 200 mls/hr Q24H IV 08/23/16 23:00 08/23/16 23:00 (Flagyl 500 Mg Inj) 100 ml @ 100 mls/hr Q8H IV 08/24/16 00:00 08/24/16 09:28 (D50w (Vial) Inj) 50 ml UNSCH PRN IV 08/23/16 22:15 (Glucagon Inj) 1 mg UNSCH PRN OTHER 08/23/16 22:15 (Xanax) 1 mg Q8H PRN PO 08/23/16 22:15 08/23/16 22:40 (Rowasa Enema) 4 gm HS RECTAL 08/24/16 21:00 (Levemir Inj) 10 units Q12HR SQ 08/23/16 22:15 08/24/16 08:46 (SoluMEDROL INJ) 40 mg Q6HR IV PUSH 08/24/16 00:00 08/24/16 05:14 (Morphine Inj) 2 mg Q3H PRN IV PUSH 08/24/16 01:30 (Morphine Inj) 4 mg Q3H PRN IV PUSH 08/24/16 01:30 A/P Assessment and Plan A: 1. Lower GI bleed etiology unclear but due to possible hemorrhoids. 2. possible ulcerative colitis exacerbation although UC diagnosis is unclear 3. abdominal pain possibly secondary to surgical adhesions or bowel obstruction ; less likely due to reported blood in stools and CT abdomen report denying any signs of obstruction P: 1. Patient is advised a colonoscopy this will be done on Friday 2. monitor labs 3. Trend H/H, continue antibiotics and IV fluids. GI consult note Patient was seen and examined Case was discussed with medical student Patient presenting with rectal bleeding and a questionable history of ulcerative colitis with what sounds like a right hemicolectomy possibly due to an ischemic event At this point in time patient is stable hemodynamically there is no evidence of any active bleeding Patient had been treated for years with sulfasalazine and courses of prednisone She is currently emotional and complains of being depressed also she reports having had problems with controlling her diabetes At this point it is very important for us to assess her underlying condition and whether there is an inflammatory bowel component or not We will plan for colonoscopy on Friday Continue with current supportive care Sanjay Posey Aug 24, 2016 10:40 Thomas Barreto MD Aug 24, 2016 20:16
--- NOTE | 2016-08-24 11:46 | EKG ---
Date Performed: 08/24/2016 Time Performed: 10:43:55 PTAGE: 60 years EKG: SINUS BRADYCARDIA WITH MARKED SINUS ARRHYTHMIA LOW QRS VOLTAGE IN PRECORDIAL LEADS INCOMPLE TE RIGHT BUNDLE BRANCH BLOCK MODERATE T-WAVE ABNORMALITY. ABNORMAL ECG Compared to prior electrocardi ogram, rate has increased. PREVIOUS TRACING : 08/24/2016 04.50 DOCTOR: Jose Denny Interpretating Date/Time 08/24/2016 11:45:00
[2016-08-24] MEDS: ONDANSETRON HCL 4 MG/2 ML VIAL IVP PRN (11:58)
[2016-08-24 12:03] LABS: CREATINE KINASE 40 U/L (26-192)
[2016-08-24] MEDS: ALPRAZolam 1 MG TAB PO PRN ×2 (12:24→21:11)
--- NOTE | 2016-08-24 13:18 | HHI.PR ---
Subjective Remarks Came to see the patient having bradycardia in the lower 40, she does not have dizziness or lightheadedness or short of breath However she stated her lower abdominal pain started again which is comes and goes, it out of 10 Positive nausea no vomiting, no guarding or rebound, pressure dropped to 98/54 at 5 AM, improved later on She stated she have a chest aching but not "pain "per say, this aching was precipitated by me pressing on the chest I discussed with the nurse extensively as well as the patient, In light of worsening leukocytosis with left shift, will monitor her closely to rule out any underlying intra-abdominal acute process, will check LDH, lactic acid, repeat CBC with differential, abdominal x-ray upright rule out free air. She then complained of worsening depression symptoms however she did not admit suicide ideation to me, will consult psychiatry Objective Vitals Vital Signs Date Time Temp Pulse Resp B/P Pulse Ox O2 Delivery O2 Flow Rate FiO2 08/24/16 12:48 97.1 56 18 137/69 99 08/24/16 10:52 47 08/24/16 08:05 98.8 60 18 133/63 97 08/24/16 05:30 98.0 61 18 98/54 96 08/24/16 03:19 98.4 57 18 105/52 100 08/23/16 22:25 44 18 118/58 99 Room Air 08/23/16 19:58 50 20 122/62 100 Room Air 08/23/16 19:01 59 18 130/63 100 08/23/16 18:34 98.2 104 26 132/65 98 I/O 08/23/16 08/23/16 08/23/16 08/24/16 08/24/16 08/24/16 07:00 15:00 23:00 07:00 15:00 23:00 Intake Total 700 ml Balance 700 ml Intake IV Total 700 ml # Voids 2 # Bowel Movements 1 Result Diagram: 08/24/1620908/24/16209 Imaging Last Impressions Abdomen/Pelvis CT 08/23/162029 Signed Impressions: Service Date/Time: Tuesday, August 23, 2016 20:52 - CONCLUSION: 1. Nonobstructive bowel gas pattern. No oral contrast was given limiting the sensitivity. 2. Unremarkable gallbladder. 3. Calcified leiomyomata in the uterus. Elliott Morillo MD Objective Remarks GENERAL: This is a well-nourished, well-developed obese patient, in no apparent distress. SKIN: No rashes, warm and dry HEAD: Atraumatic. Normocephalic. EYES: Pupils equal round and reactive. Extraocular motions intact. No scleral icterus. ENT: Nose without bleeding, or drainage, Airway patent. NECK: Trachea midline. Supple CARDIOVASCULAR: Radial cardiac without murmurs, gallops, or rubs. RESPIRATORY: Fair air entry bilaterally. No wheezes, rales, or rhonchi. GASTROINTESTINAL: Abdomen soft, positive tenderness mostly on the lower abdomen , nondistended. Positive bowel sounds MUSCULOSKELETAL: Extremities without clubbing, cyanosis, or edema. Pedal pulses appreciated NEUROLOGICAL: Awake and alert. Moves all extremity. Normal speech.no focal neurological deficit A/P Assessment and Plan 08/24@1315: Acute Worsening abdominal pain without guarding or rebound, acute bradycardia nonsymptomatic, worsening leukocytosis with left shift 14,000 jumped from 9000 >> Stat lactic acid, LDH, abdominal x-ray upright rule out free air >> EKG from today personally reviewed by me showing incomplete right bundle branch and some T inversion on anterior leads however cardiac enzymes which also reviewed by me to set still negative >> Consult psychiatry for depression A/P: 60 y/o female with a history of ulcerative colitis came with abdominal pain nausea and hematochezia Sepsis, mostly due to Ulcerative Colitis Exacerbation - elevated lactic acid - Morphine 2 - 4 mg IV q3h PRN pain - consult gastroenterology - Antibiotics: Metronidazole 500 mg IV q8h, renally adjusted Cipro at 400 mg IV q24h - Solu-Medrol 40 mg IV q6h Atypical chest pain - ACS vs referred GI pain - Serial cardiac enzymes and EKGs to r/o ACS - continuous cardiac telemetry to monitor for cardiac arrhythmias Type 2 diabetes mellitus with hyperglycemia - Levemir 10 units subq q12h - Accu checks AC and HS with medium dose Novolog coverage - Hypoglycemia protocol Hyponatremia - initial sodium 125 - NS at 100 cc/hr - repeat BMP and follow trends in sodium level and replace as indicated Acute kidney injury - BUN 34, Creatinine 1.93, eGFR 26 - IVF hydration - recheck BMP in a.m. - repeat BMP and follow trends in renal indices - avoid nephrotoxins DVT prophylaxis Lovenox 30 mg subq q24h Nemou,Villasenor MD Aug 24, 2016 13:18
[2016-08-24 14:39] LABS: LDH SERUM 158 U/L (84-246)
[2016-08-24 14:42] LABS: CREATINE KINASE 35 U/L (26-192)
[2016-08-24 15:27] LABS: AUTOMATED NEUTROPHIL # 10.2 TH/MM3 (1.8-7.7); BASOPHIL % 0.1 % (0.0-2.0); HEMATOCRIT 33.6 % (35.0-46.0); HEMO FLAGS DIFF FINAL; MEAN CELL VOLUME 88.8 FL (80.0-100.0); MEAN CORPUSCULAR HEMOGLOBIN 29.4 PG (27.0-34.0); MEAN CORPUSCULAR HGB CONC 33.1 % (32.0-36.0); MONO % 2.7 % (0.0-8.0); NEUT % 88.2 % (16.0-70.0); PLATELET COUNT 203 TH/MM3 (150-450); RED BLOOD COUNT 3.79 MIL/MM3 (4.00-5.30); RED CELL DISTRIBUTION WIDTH 14.4 % (11.6-17.2); WHITE BLOOD COUNT 11.5 TH/MM3 (4.0-11.0)
--- NOTE | 2016-08-24 16:11 | RADRPT ---
EXAM DATE/TIME: 08/24/2016 15:27 [facility] COMPARISON: No previous studies available for comparison. INDICATIONS : Abdominal Pain MEDICAL HISTORY : Deep venous thrombosis. Gastroesophageal reflux disease. Ulcerative colitis.Diabetes SURGICAL HISTORY : Hysterectomy. Colon resection.Tubal ligation ENCOUNTER: Initial ACUITY: 1 day PAIN SCORE: 10/10 LOCATION: Bilateral upper quadrant FINDINGS: Supine and upright views of the abdomen were performed. The abdominal bowel gas pattern is normal. No air fluid levels are seen. Free air is not seen. The lung bases are clear. There are coarse calcif ications in the lower pelvis likely related to a calcified leiomyoma of the uterus. There is degenera tive change of the lower lumbar spine. CONCLUSION: Negative abdominal series. Angel Lee MD on August 24, 2016 at 16:07 Board Certified Radiologist. This report was verified electronically.
[2016-08-24] MEDS: MORPHINE SULFATE 4 MG/ML INJ IV PUSH PRN (16:30)
[2016-08-24] MEDS: MESALAMINE ENEMA 4 GM/60 ML BTL RECTAL SCH (21:00)
[2016-08-24] MEDS: CIPROFLOXACIN 400 MG PREMIX 200 ML IV SCH (22:22)
[2016-08-24] MEDS: ENOXAPARIN SODIUM 30 MG/0.3 ML SYRINGE SQ SCH (22:22)
[2016-08-25] VITALS (8 sets, daily range): BP systolic 120–171; BP diastolic 63–81; PULSE 50–70; RESP 18–20; TEMP 95.1–99.5; O2SAT 93–97
[2016-08-25] MEDS: metroNIDAZOLE 500 MG INJ 100 ML IV SCH ×3 (00:47→17:12)
[2016-08-25] MEDS: methylPREDNISolone SOD SUCC 40 MG/1 ML VIAL IV PUSH SCH ×5 (00:47→23:34)
[2016-08-25] MEDS: SODIUM CHLOR 0.9% 1000 ML INJ 1,000 ML IV SCH ×3 (05:43→23:37)
[2016-08-25] MEDS: MORPHINE SULFATE 4 MG/ML INJ IV PUSH PRN ×4 (05:44→23:40)
[2016-08-25] MEDS: INSULIN ASPART SUPPLEMENTAL SCALE SQ SCH ×4 (06:28→20:45)
[2016-08-25] MEDS: INSULIN DETEMIR 100 UNITS/ML VIAL SQ SCH ×2 (08:01→20:43)
[2016-08-25] MEDS: SODIUM CHLORIDE 0.9% FLUSH 10 ML FLUSH IV FLUSH SCH ×2 (08:42→20:19)
[2016-08-25] MEDS: ALPRAZolam 1 MG TAB PO PRN ×2 (08:49→17:29)
[2016-08-25 09:46] LABS: AUTOMATED NEUTROPHIL # 15.4 TH/MM3 (1.8-7.7); BASOPHIL % 0.1 % (0.0-2.0); HEMATOCRIT 36.4 % (35.0-46.0); HEMO FLAGS DIFF FINAL; LYMPH % 6.5 % (9.0-44.0); LYMPHOCYTE # 1.1 TH/MM3 (1.0-4.8); MEAN CELL VOLUME 90.3 FL (80.0-100.0); MEAN CORPUSCULAR HGB CONC 32.1 % (32.0-36.0); MONO % 3.4 % (0.0-8.0); PLATELET COUNT 247 TH/MM3 (150-450); RED BLOOD COUNT 4.04 MIL/MM3 (4.00-5.30); RED CELL DISTRIBUTION WIDTH 13.9 % (11.6-17.2); WHITE BLOOD COUNT 17.1 TH/MM3 (4.0-11.0)
[2016-08-25 10:26] LABS: BICARBONATE 21.3 MEQ/L (21.0-32.0); POTASSIUM 3.9 MEQ/L (3.5-5.1)
--- NOTE | 2016-08-25 12:12 | PD.CONS ---
Provisional Diagnosis Admission Date Aug 23, 2016 at 22:03 [place]. adjustment disorder with depressed mood. History of Present Illness Service Psychiatry Consult Requested By Primary Care Physician Jadyn Weiss MD [facility] medical issues. Depressed but not suicidal. Wants antidepressant and responded well to prozac in the past. Past Family Social History Coded Allergies: No Known Allergies (Verified , 08/23/16) Active Scripts Insulin Lispro (Human) Inj (Humalog Kwikpen Pen Inj)600 Unit/3 Ml Pen5 Units SQ AC DINNER #1 PEN Ref 2 Prov:Jadyn Weiss MD R1 08/22/16 Meloxicam 7.5 Mg Tab15 Mg PO DAILY #60 TAB Ref 0 Prov:Nav Luna MD R4 08/02/16 Mupirocin Topical 2 % Oint1 Applic TOPICAL BID #1 TUBE Ref 0 Prov:Elizabeth Barksdale MD R3 07/30/16 Alprazolam 1 Mg Tab1 Mg PO Q8H PRN (ANXIETY) #30 TAB Ref 0 Prov:Elizabeth Barksdale MD R3 07/26/16 Atorvastatin 80 Mg Tab80 Mg PO HS #90 TAB Ref 4 Prov:Elizabeth Barksdale MD R3 07/03/16 Rivaroxaban (Xarelto)20 Mg Tab20 Mg PO DAILY #30 TAB Ref 3 Prov:Elizabeth Barksdale MD R3 02/23/16 Reported Medications Trazodone 100 Mg Vepkhi502 Mg PO HS #30 TAB Ref 0 08/24/16 Mesalamine Enema 4 Gm/60 Ml Enem4 Gm RECTAL HS Ref 0 08/23/16 Insulin Lispro (Human) Inj (Humalog Inj)1,000 Unit/10 Ml Vial5 Units SQ AC DINNER #1 VIAL Ref 0 08/23/16 Prednisone 10 Mg Tab10 Mg PO DAILY Ref 0 08/23/16 Insulin Glargine Inj (Lantus Solostar Pen Inj)300 Unit/3 Ml Pen15 Units SQ HS Ref 0 08/23/16 Sulfasalazine Unknown Strength TabUnknown Dose PO Q8H #90 TAB Ref 0 08/12/16 Discontinued Reported Medications Rivaroxaban (Xarelto)20 Mg Tab20 Mg PO DAILY #30 TAB Ref 0 02/23/16 Discontinued Scripts Insulin Glargine Inj (Lantus Solostar Pen Inj)300 Unit/3 Ml Pen25 Units SQ HS # 7 PEN Ref 6 Prov:Jeanne Weiss MD 08/19/16 Citalopram 40 Mg Tab40 Mg PO DAILY #30 TAB Ref 2 Prov:Elizabeth Barksdale MD R3 07/26/16 Insulin Lispro (Human) Inj (Humalog Inj)1,000 Unit/10 Ml Vial5 Units SQ AC DINNER #1 VIAL Ref 0 Prov:Jeanne Weiss MD 08/19/16 Insulin Glargine Inj (Lantus Solostar Pen Inj)300 Unit/3 Ml Pen15 Units SQ HS # 7 PEN Ref 6 Prov:Elizabeth Barksdale MD R3 07/30/16 Current Medications Medications (Trade) Dose Ordered Sig/Ani Route Start Time Stop Time Status Last Admin (NS 1000 ml Inj) 1,000 ml @ 100 mls/hr Q10H IV 08/23/16 22:00 08/25/16 05:43 (NS Flush) 2 ml UNSCH PRN IV FLUSH 08/23/16 22:00 (NS Flush) 2 ml BID IV FLUSH 08/24/16 09:00 (Tylenol) 650 mg Q4H PRN PO 08/23/16 22:00 (Zofran Inj) 4 mg Q6H PRN IVP 08/23/16 22:00 08/24/16 11:58 (Lovenox Inj) 30 mg Q24H SQ 08/23/16 23:00 08/24/16 22:22 (Milk Of Magnesia Liq) 30 ml Q12H PRN PO 08/23/16 22:00 (Senokot) 17.2 mg Q12H PRN PO 08/23/16 22:00 (Dulcolax Supp) 10 mg DAILY PRN RECTAL 08/23/16 22:00 Lactulose 30 ml 30 ml DAILY PRN PO 08/23/16 22:00 Ciprofloxacin/ Dextrose 200 ml @ 200 mls/hr Q24H IV 08/23/16 23:00 08/24/16 22:22 (Flagyl 500 Mg Inj) 100 ml @ 100 mls/hr Q8H IV 08/24/16 00:00 08/25/16 08:42 (D50w (Vial) Inj) 50 ml UNSCH PRN IV 08/23/16 22:15 (Glucagon Inj) 1 mg UNSCH PRN OTHER 08/23/16 22:15 (Xanax) 1 mg Q8H PRN PO 08/23/16 22:15 08/25/16 08:49 (Rowasa Enema) 4 gm HS RECTAL 08/24/16 21:00 (Levemir Inj) 10 units Q12HR SQ 08/23/16 22:15 08/25/16 08:01 (SoluMEDROL INJ) 40 mg Q6HR IV PUSH 08/24/16 00:00 08/25/16 05:42 (Morphine Inj) 2 mg Q3H PRN IV PUSH 08/24/16 01:30 08/25/16 05:44 (Morphine Inj) 4 mg Q3H PRN IV PUSH 08/24/16 01:30 Physical Exam Vital Signs Vital Signs Date Time Temp Pulse Resp B/P Pulse Ox O2 Delivery O2 Flow Rate FiO2 08/25/16 11:20 97.0 59 20 159/77 95 08/23/16 22:25 Room Air I/O 08/24/16 08/24/16 08/25/16 08:00 16:00 00:00 Intake Total 1500 ml 118 ml Balance 1500 ml 118 ml Assessment & Plan Assessment & Plan Estimated LOS: Charlie Gerardo MD Aug 25, 2016 12:12
[2016-08-25] MEDS: FLUoxetine HCL 20 MG CAP PO SCH (12:31)
[2016-08-25] MEDS ORDERED: cloNIDine HCL 0.1 MG TAB PO PRN (12:45)
--- NOTE | 2016-08-25 13:52 | EKG ---
Date Performed: 08/24/2016 Time Performed: 15:42:07 PTAGE: 60 years EKG: SINUS BRADYCARDIA Compared to previous tracing, the incomplete Right bundle branch block wi th the associated T wave changes in V3 and V4 is no longer evident BORDERLINE ECG PREVIOUS TRACING : 08/24/2016 10.43 DOCTOR: Lesley Dubon Interpretating Date/Time 08/25/2016 13:51:01
[2016-08-25] MEDS ORDERED: PEG (High)/E-LYTE SOLN 4000 ML BTL PO ONE (16:00)
--- NOTE | 2016-08-25 16:44 | HHI.GIFU ---
GI Follow-up Note Consult Follow-up Subjective: Patient laying in bed comfortably,nausea, tolerating clear liquids , melanotic stools today , still abdominal pain Objective: PHYSICAL EXAMINATION: Vitals signs stable No fever HEENT: Pupils round and reactive to light; normocephalic; atraumatic; no jaundice. Throat is clear. NECK: Neck is supple, no JVD, no lymphadenopathy. CHEST: Chest is clear to auscultation and percussion. CARDIAC: Regular rate and rhythm with no murmur gallop or rubs. ABDOMEN: Soft, nondistended, obese,tender; no hepatosplenomegaly; bowel sounds are present in all four quadrants. EXTREMITIES: No clubbing, cyanosis, or edema. SKIN: Normal; no rash; no jaundice. 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 Available Data (labs, X- Rays, Procedues) : Laboratory Tests Test 08/23/16 08/23/16 08/24/16 08/24/16 19:30 21:05 02:10 02:40 White Blood Count 9.3 TH/MM3 14.0 TH/MM3 Red Blood Count 4.27 MIL/MM3 3.99 MIL/MM3 Hemoglobin 12.7 GM/DL 11.6 GM/DL Hematocrit 39.2 % 36.2 % Mean Corpuscular Volume 91.8 FL 90.9 FL Mean Corpuscular Hemoglobin 29.8 PG 29.0 PG Mean Corpuscular Hemoglobin 32.5 % 31.9 % Concent Red Cell Distribution Width 13.8 % 13.9 % Platelet Count 279 TH/MM3 251 TH/MM3 Mean Platelet Volume 9.9 FL 9.2 FL Neutrophils (%) (Auto) 89.7 % 80.2 % Lymphocytes (%) (Auto) 7.7 % 14.4 % Monocytes (%) (Auto) 2.5 % 5.0 % Eosinophils (%) (Auto) 0.0 % 0.3 % Basophils (%) (Auto) 0.1 % 0.1 % Neutrophils # (Auto) 8.4 TH/MM3 11.3 TH/MM3 Lymphocytes # (Auto) 0.7 TH/MM3 2.0 TH/MM3 Monocytes # (Auto) 0.2 TH/MM3 0.7 TH/MM3 Eosinophils # (Auto) 0.0 TH/MM3 0.0 TH/MM3 Basophils # (Auto) 0.0 TH/MM3 0.0 TH/MM3 CBC Comment DIFF FINAL DIFF FINAL Differential Comment Prothrombin Time 10.7 SEC Prothromb Time International 1.0 RATIO Ratio Activated Partial 23.5 SEC Thromboplast Time Sodium Level 125 MEQ/L 134 MEQ/L Potassium Level 4.7 MEQ/L 3.7 MEQ/L Chloride Level 92 MEQ/L 104 MEQ/L Carbon Dioxide Level 21.5 MEQ/L 21.5 MEQ/L Anion Gap 12 MEQ/L 9 MEQ/L Blood Urea Nitrogen 34 MG/DL 28 MG/DL Creatinine 1.93 MG/DL 1.53 MG/DL Estimat Glomerular Filtration 26 ML/MIN 35 ML/MIN Rate Random Glucose 842 MG/DL 415 MG/DL Lactic Acid Level 3.6 mmol/L 2.7 mmol/L Calcium Level 9.1 MG/DL 7.9 MG/DL Total Bilirubin 0.3 MG/DL 0.3 MG/DL Aspartate Amino Transf 5 U/L 4 U/L (AST/SGOT) Alanine Aminotransferase 13 U/L 11 U/L (ALT/SGPT) Alkaline Phosphatase 104 U/L 86 U/L Total Protein 6.7 GM/DL 6.0 GM/DL Albumin 3.1 GM/DL 2.6 GM/DL Lipase 191 U/L Urine Color YELLOW Urine Turbidity CLEAR Urine pH 5.0 Urine Specific [place] 1.025 Urine Protein NEG mg/dL Urine Glucose (UA) 1000 mg/dL Urine Ketones NEG mg/dL Urine Occult Blood NEG Urine Nitrite NEG Urine Bilirubin NEG Urine Urobilinogen LESS THAN 2.0 MG/DL Urine Leukocyte Esterase NEG Urine WBC 1 /hpf Urine Squamous Epithelial <1 /hpf Cells Urine Mucus FEW /lpf Microscopic Urinalysis Comment CULT NOT INDICATED Total Creatine Kinase 44 U/L Troponin I LESS THAN 0.02 NG/ML Stool C. difficile Toxin (PCR) NEGATIVE Stl C. difficile Toxin PRESUMPTIVE Epiderm 027 NEGATIVE Test 08/24/16 08/24/16 08/24/16 08/24/16 07:12 11:22 13:20 14:50 Lactic Acid Level 1.1 mmol/L 1.8 mmol/L Total Creatine Kinase 40 U/L 35 U/L Troponin I LESS THAN 0.02 LESS THAN 0.02 NG/ML NG/ML Lactate Dehydrogenase 158 U/L White Blood Count 11.5 TH/MM3 Red Blood Count 3.79 MIL/MM3 Hemoglobin 11.1 GM/DL Hematocrit 33.6 % Mean Corpuscular Volume 88.8 FL Mean Corpuscular Hemoglobin 29.4 PG Mean Corpuscular Hemoglobin 33.1 % Concent Red Cell Distribution Width 14.4 % Platelet Count 203 TH/MM3 Mean Platelet Volume 9.5 FL Neutrophils (%) (Auto) 88.2 % Lymphocytes (%) (Auto) 9.0 % Monocytes (%) (Auto) 2.7 % Eosinophils (%) (Auto) 0.0 % Basophils (%) (Auto) 0.1 % Neutrophils # (Auto) 10.2 TH/MM3 Lymphocytes # (Auto) 1.0 TH/MM3 Monocytes # (Auto) 0.3 TH/MM3 Eosinophils # (Auto) 0.0 TH/MM3 Basophils # (Auto) 0.0 TH/MM3 CBC Comment DIFF FINAL Differential Comment Hematology Comments Test 08/25/16 08:39 White Blood Count 17.1 TH/MM3 Red Blood Count 4.04 MIL/MM3 Hemoglobin 11.7 GM/DL Hematocrit 36.4 % Mean Corpuscular Volume 90.3 FL Mean Corpuscular Hemoglobin 29.0 PG Mean Corpuscular Hemoglobin 32.1 % Concent Red Cell Distribution Width 13.9 % Platelet Count 247 TH/MM3 Mean Platelet Volume 9.8 FL Neutrophils (%) (Auto) 90.0 % Lymphocytes (%) (Auto) 6.5 % Monocytes (%) (Auto) 3.4 % Eosinophils (%) (Auto) 0.0 % Basophils (%) (Auto) 0.1 % Neutrophils # (Auto) 15.4 TH/MM3 Lymphocytes # (Auto) 1.1 TH/MM3 Monocytes # (Auto) 0.6 TH/MM3 Eosinophils # (Auto) 0.0 TH/MM3 Basophils # (Auto) 0.0 TH/MM3 CBC Comment DIFF FINAL Differential Comment Sodium Level 137 MEQ/L Potassium Level 3.9 MEQ/L Chloride Level 107 MEQ/L Carbon Dioxide Level 21.3 MEQ/L Anion Gap 9 MEQ/L Blood Urea Nitrogen 22 MG/DL Creatinine 1.10 MG/DL Estimat Glomerular Filtration 50 ML/MIN Rate Random Glucose 218 MG/DL Calcium Level 8.0 MG/DL ASSESSMENT/PLAN: gi bleeding-hb stable , initially red blood now melena questionable history of ulcerative colitis- Recommendations clear liquid diet egd/colon in am monitor hb/ht closely transfuse prn It was a pleasure seeing Atiya Lester. Thank you for this consult. Entered by: Opal Gilman MD Aug 25, 2016 16:44
--- NOTE | 2016-08-25 17:16 | HHI.PR ---
Subjective Remarks Patient still complaining of stomach pain 8 out of 10 No nausea or vomiting Although she is laying in bed not in significant distress, no fever or chills, creatinine improving 1.1, cardiac enzyme negative, WBC increased to 17.1 possibly steroid-induced Also blood pressure on the higher side will add clonidine as needed Objective Vitals Vital Signs Date Time Temp Pulse Resp B/P Pulse Ox O2 Delivery O2 Flow Rate FiO2 08/25/16 16:37 97.8 65 20 140/74 93 08/25/16 11:20 97.0 59 20 159/77 95 08/25/16 10:05 56 08/25/16 08:07 95.1 58 20 171/81 97 08/25/16 04:00 98.2 61 20 120/76 95 08/25/16 01:37 50 08/25/16 00:00 99.5 70 18 131/69 95 08/24/16 20:00 97.0 47 20 173/79 97 I/O 08/24/16 08/24/16 08/24/16 08/25/16 08/25/16 08/25/16 07:00 15:00 23:00 07:00 15:00 23:00 Intake Total 1500 ml 118 ml 1400 ml 800 ml Balance 1500 ml 118 ml 1400 ml 800 ml Intake Oral 118 ml IV Total 1500 ml 1400 ml 800 ml # Voids 2 3 4 # Bowel Movements 1 3 2 2 4 Result Diagram: 08/25/16 0839 08/25/16 0839 Objective Remarks GENERAL: This is a well-nourished, well-developed obese patient, in no apparent distress. SKIN: No rashes, warm and dry HEAD: Atraumatic. Normocephalic. EYES: Pupils equal round and reactive. Extraocular motions intact. No scleral icterus. ENT: Nose without bleeding, or drainage, Airway patent. NECK: Trachea midline. Supple CARDIOVASCULAR: Radial cardiac without murmurs, gallops, or rubs. RESPIRATORY: Fair air entry bilaterally. No wheezes, rales, or rhonchi. GASTROINTESTINAL: Abdomen soft, positive tenderness mostly on the lower abdomen , nondistended. Positive bowel sounds MUSCULOSKELETAL: Extremities without clubbing, cyanosis, or edema. Pedal pulses appreciated NEUROLOGICAL: Awake and alert. Moves all extremity. Normal speech.no focal neurological deficit A/P Assessment and Plan 08/24@1315: Acute Worsening abdominal pain without guarding or rebound, acute bradycardia nonsymptomatic, worsening leukocytosis with left shift 14,000 jumped from 9000 >> Stat lactic acid, LDH, abdominal x-ray upright rule out free air >> EKG from today personally reviewed by me showing incomplete right bundle branch and some T inversion on anterior leads however cardiac enzymes which also reviewed by me to set still negative >> Consult psychiatry for depression 08/25: creatinine improving 1.1, cardiac enzyme negative, WBC increased to 17.1 possibly steroid-induced Also blood pressure on the higher side will add clonidine as needed Plan for EGD and colonoscopy in a.m. by GI A/P: 60 y/o female with a history of ulcerative colitis came with abdominal pain nausea and hematochezia Sepsis, mostly due to Ulcerative Colitis Exacerbation - elevated lactic acid - Morphine 2 - 4 mg IV q3h PRN pain - consult gastroenterology - Antibiotics: Metronidazole 500 mg IV q8h, renally adjusted Cipro at 400 mg IV q24h - Solu-Medrol 40 mg IV q6h Atypical chest pain - ACS vs referred GI pain - Serial cardiac enzymes and EKGs to r/o ACS - continuous cardiac telemetry to monitor for cardiac arrhythmias Type 2 diabetes mellitus with hyperglycemia - Levemir 10 units subq q12h - Accu checks AC and HS with medium dose Novolog coverage - Hypoglycemia protocol Hyponatremia - initial sodium 125 - NS at 100 cc/hr - repeat BMP and follow trends in sodium level and replace as indicated Acute kidney injury - BUN 34, Creatinine 1.93, eGFR 26 - IVF hydration - recheck BMP in a.m. - repeat BMP and follow trends in renal indices - avoid nephrotoxins DVT prophylaxis Lovenox 30 mg subq q24h Hamilton Garibay MD Aug 25, 2016 17:16
[2016-08-25] MEDS: MESALAMINE ENEMA 4 GM/60 ML BTL RECTAL SCH (20:45)
[2016-08-25] MEDS: ENOXAPARIN SODIUM 30 MG/0.3 ML SYRINGE SQ SCH (23:00)
[2016-08-25] MEDS: CIPROFLOXACIN 400 MG PREMIX 200 ML IV SCH (23:32)
[2016-08-26] VITALS (7 sets, daily range): BP systolic 102–156; BP diastolic 53–78; PULSE 45–58; RESP 18–20; TEMP 96.8–98.1; O2SAT 95–100
[2016-08-26] MEDS: metroNIDAZOLE 500 MG INJ 100 ML IV SCH ×3 (00:57→17:21)
[2016-08-26] MEDS: ALPRAZolam 1 MG TAB PO PRN ×2 (01:01→12:11)
[2016-08-26] MEDS: MORPHINE SULFATE 4 MG/ML INJ IV PUSH PRN ×3 (03:54→20:55)
[2016-08-26] MEDS: ONDANSETRON HCL 4 MG/2 ML VIAL IVP PRN (03:56)
[2016-08-26] MEDS: methylPREDNISolone SOD SUCC 40 MG/1 ML VIAL IV PUSH SCH ×3 (06:26→17:23)
[2016-08-26] MEDS: INSULIN ASPART SUPPLEMENTAL SCALE SQ SCH ×4 (07:00→21:01)
[2016-08-26] MEDS: INSULIN DETEMIR 100 UNITS/ML VIAL SQ SCH ×2 (08:41→21:00)
[2016-08-26 09:49] LABS: BICARBONATE 21.2 MEQ/L (21.0-32.0)
[2016-08-26] MEDS ORDERED: FAMOTIDINE 20 MG/2 ML VIAL ONE (10:04)
[2016-08-26] MEDS ORDERED: PROPOFOL 200 MG/20 ML AMP IV PUSH ONE (10:52)
--- NOTE | 2016-08-26 11:01 | HHI.GIFU ---
Subjective Remarks Immediate postop note: EGD with biopsy and colonoscopy with biopsy Indication: lactic acidosis and GI bleed History of UC Meds: MAC Findings: Esophagus normal Stomach: normal Duodenum: large ulcerations in the distal bulb extending into the descending duodenum. Multiple possibly ischemic looking ulcers. Biopsies taken. Also could be crohns ulcers Ileum normal, at 25cm. Rectum has appearance of ileal pouch. Two biopsies taken. Objective Vitals I&O Vital Signs Date Time Temp Pulse Resp B/P Pulse Ox O2 Delivery O2 Flow Rate FiO2 08/26/16 10:02 97.8 46 20 131/70 98 08/26/16 09:13 97.8 58 18 131/70 99 08/26/16 07:14 18 08/26/16 04:00 97.0 45 18 156/78 100 08/25/16 20:00 98.5 56 18 140/63 96 08/25/16 16:37 97.8 65 20 140/74 93 08/25/16 11:20 97.0 59 20 159/77 95 I/O 08/25/16 08/25/16 08/25/16 08/26/16 08/26/16 08/26/16 07:00 15:00 23:00 07:00 15:00 23:00 Intake Total 1400 ml 800 ml Output Total 200 ml Balance 1400 ml 800 ml -200 ml IV Total 1400 ml 800 ml Output Urine Total 200 ml # Voids 4 10 # Bowel Movements 2 2 5 10 Laboratory Laboratory Tests Test 08/26/16 07:48 Sodium Level 134 Potassium Level 4.0 Chloride Level 104 Carbon Dioxide Level 21.2 Anion Gap 9 Blood Urea Nitrogen 24 Creatinine 1.00 Estimat Glomerular Filtration 56 Rate Random Glucose 232 Calcium Level 8.0 Date/Time Procedure Status Source Growth 08/24/16 02:40 Stool Pus ([facility]OL[facility]) - Final Complete Stool Stool NO WBC'S SEEN 08/24/16 02:40 - Final Complete Stool Stool 08/23/16 21:20 Aerobic Blood Culture - Preliminary Resulted Blood Peripheral NO GROWTH IN 2 DAYS 08/23/16 21:20 Anaerobic Blood Culture - Preliminary Resulted Blood Peripheral NO GROWTH IN 2 DAYS Physical Exam HEENT: Pupils round and reactive to light; normocephalic; atraumatic; no jaundice. Throat is clear. NECK: Neck is supple, no JVD, no lymphadenopathy. CHEST: Chest is clear to auscultation and percussion. CARDIAC: Regular rate and rhythm with no murmur gallop or rubs. ABDOMEN: Soft, nondistended, nontender; no hepatosplenomegaly; bowel sounds are present in all four quadrants. EXTREMITIES: No clubbing, cyanosis, or edema. SKIN: Normal; no rash; no jaundice. 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 Assessment and Plan Plan Impression: multiple large ulcers in duodenum, possibly ischemic vs crohns disease in patient with prior Total proctocolectomy and J pouch for UC. Recommendation: CTA of abdomen and pelvis. If normal celiac axis, recommend steroid therapy. Santosh Borjas MD Aug 26, 2016 11:01
[2016-08-26] MEDS: FLUoxetine HCL 20 MG CAP PO SCH (12:11)
[2016-08-26] MEDS: SODIUM CHLOR 0.9% 1000 ML INJ 1,000 ML IV SCH ×2 (12:12→20:53)
[2016-08-26] MEDS: SODIUM CHLORIDE 0.9% FLUSH 10 ML FLUSH IV FLUSH SCH ×2 (12:12→20:55)
[2016-08-26] MEDS ORDERED: IOHEXOL 350 MG/ML 10 ML VIAL (for RAD DIAG) IV ONE (15:27)
--- NOTE | 2016-08-26 16:13 | RADRPT ---
EXAM DATE/TIME: 08/26/2016 15:12 [place] COMPARISON: No previous studies available for comparison. INDICATIONS : Obstruction. Duodenal ulcers, possible ischemia IV CONTRAST: 100 cc Omnipaque 350 (iohexol) IV ORAL CONTRAST: No oral contrast ingested. RADIATION DOSE: 15.17 CTDIvol (mGy) MEDICAL HISTORY : Deep venous thrombosis. Ulcerative colitis. Diabetes mellitus type 2. SURGICAL HISTORY : Tubal ligation. Hysterectomy. ENCOUNTER: Initial ACUITY: 1 day PAIN SCALE: 0/10 LOCATION: stomach TECHNIQUE: Volumetric scanning was performed using a multi-row detector CT scanner. The data was post processed with a variety of visualization algorithms including full volume maximum intensity projection, multi -planar sliding thin slab reformation, curved planar reformation, and surface rendering techniques. Using automated exposure control and adjustment of the mA and/or kV according to patient size, radiat ion dose was kept as low as reasonably achievable to obtain optimal diagnostic quality images. DICOM format image data is available electronically for review and comparison. FINDINGS: The lung base is are clear. The liver, spleen, pancreas, adrenals and kidneys are unremarkable. The celiac, SMA and ANY are widely patent. Both the right and left renal arteries are widely patent. Moderate atherosclerotic calcification is present in the distal aorta without aneurysmal dilatation o r small plaque. Both iliacs are mildly patent. Fibroid uterus noted. CONCLUSION: I see no evidence for mesenteric ischemia. Pee Mcclure MD FACR on August 26, 2016 at 16:07 Board Certified Radiologist. This report was verified electronically.
--- NOTE | 2016-08-26 16:43 | HHI.PR ---
Subjective Remarks Patient stated her abdominal pain is a little better today no nausea vomiting, she is on clear liquid diet He just had EGD , patient is emotional she is asking if this is will be cured Objective Vitals Vital Signs Date Time Temp Pulse Resp B/P Pulse Ox O2 Delivery O2 Flow Rate FiO2 08/26/16 12:29 97.0 57 18 126/56 95 08/26/16 11:15 65 18 121/55 93 08/26/16 11:05 70 18 115/55 93 08/26/16 10:54 97.8 71 18 111/57 93 08/26/16 10:02 97.8 46 20 131/70 98 08/26/16 09:13 97.8 58 18 131/70 99 08/26/16 07:14 18 08/26/16 04:00 97.0 45 18 156/78 100 08/25/16 20:00 98.5 56 18 140/63 96 I/O 08/25/16 08/25/16 08/25/16 08/26/16 08/26/16 08/26/16 07:00 15:00 23:00 07:00 15:00 23:00 Intake Total 1400 ml 800 ml 700 ml Output Total 200 ml Balance 1400 ml 800 ml 500 ml IV Total 1400 ml 800 ml Other 700 ml Output Urine Total 200 ml # Voids 4 10 # Bowel Movements 2 2 5 10 Result Diagram: 08/25/16 0839 08/26/16 0748 Objective Remarks - GENERAL: This is a well-nourished, well-developed obese patient, in no apparent distress. SKIN: No rashes, warm and dry HEAD: Atraumatic. Normocephalic. EYES: Pupils equal round and reactive. Extraocular motions intact. No scleral icterus. ENT: Nose without bleeding, or drainage, Airway patent. NECK: Trachea midline. Supple CARDIOVASCULAR: Radial cardiac without murmurs, gallops, or rubs. RESPIRATORY: Fair air entry bilaterally. No wheezes, rales, or rhonchi. GASTROINTESTINAL: Abdomen soft, much less tenderness, nondistended. Positive bowel sounds MUSCULOSKELETAL: Extremities without clubbing, cyanosis, or edema. Pedal pulses appreciated NEUROLOGICAL: Awake and alert. Moves all extremity. Normal speech.no focal neurological deficit A/P Assessment and Plan 08/24@1315: Acute Worsening abdominal pain without guarding or rebound, acute bradycardia nonsymptomatic, worsening leukocytosis with left shift 14,000 jumped from 9000 >> Stat lactic acid, LDH, abdominal x-ray upright rule out free air >> EKG from today personally reviewed by me showing incomplete right bundle branch and some T inversion on anterior leads however cardiac enzymes which also reviewed by me to set still negative >> Consult psychiatry for depression 08/25: creatinine improving 1.1, cardiac enzyme negative, WBC increased to 17.1 possibly steroid-induced Also blood pressure on the higher side will add clonidine as needed 08/26: Status post EGD >>Esophagus normal, Stomach: normal Duodenum: large ulcerations in the distal bulb extending into the descending duodenum. Multiple possibly ischemic looking ulcers. Biopsies taken. Also could be crohns ulcers Ileum normal, at 25cm. Rectum has appearance of ileal pouch Continue steroid per GI recommendation, CTA to rule out underlying mesenteric ischemic process A/P: 60 y/o female with a history of ulcerative colitis came with abdominal pain nausea and hematochezia Sepsis, mostly due to Ulcerative Colitis Exacerbation - elevated lactic acid - Morphine 2 - 4 mg IV q3h PRN pain - consult gastroenterology - Antibiotics: Metronidazole 500 mg IV q8h, renally adjusted Cipro at 400 mg IV q24h - Solu-Medrol 40 mg IV q6h Atypical chest pain - ACS vs referred GI pain - Serial cardiac enzymes and EKGs to r/o ACS - continuous cardiac telemetry to monitor for cardiac arrhythmias Type 2 diabetes mellitus with hyperglycemia - Levemir 10 units subq q12h - Accu checks AC and HS with medium dose Novolog coverage - Hypoglycemia protocol Hyponatremia - initial sodium 125 - NS at 100 cc/hr - repeat BMP and follow trends in sodium level and replace as indicated Acute kidney injury - BUN 34, Creatinine 1.93, eGFR 26 - IVF hydration - recheck BMP in a.m. - repeat BMP and follow trends in renal indices - avoid nephrotoxins DVT prophylaxis Lovenox 30 mg subq q24h Hamilton Garibay MD Aug 26, 2016 16:43
[2016-08-26] MEDS: MESALAMINE ENEMA 4 GM/60 ML BTL RECTAL SCH (20:54)
[2016-08-27] VITALS (8 sets, daily range): BP systolic 99–158; BP diastolic 54–75; PULSE 43–68; RESP 16–20; TEMP 97.2–98.9; O2SAT 95–100
[2016-08-27] MEDS: MORPHINE SULFATE 4 MG/ML INJ IV PUSH PRN ×5 (00:33→21:18)
[2016-08-27] MEDS: ALPRAZolam 1 MG TAB PO PRN ×3 (00:33→21:18)
[2016-08-27] MEDS: methylPREDNISolone SOD SUCC 40 MG/1 ML VIAL IV PUSH SCH ×3 (00:34→12:46)
[2016-08-27] MEDS: CIPROFLOXACIN 400 MG PREMIX 200 ML IV SCH (00:35)
[2016-08-27] MEDS ORDERED: HYDROmorphone HCL PF 1 MG/ML VIAL IV PUSH ONE (02:00)
[2016-08-27] MEDS: INSULIN ASPART SUPPLEMENTAL SCALE SQ SCH ×4 (06:15→21:26)
[2016-08-27] MEDS: SODIUM CHLOR 0.9% 1000 ML INJ 1,000 ML IV SCH ×2 (06:16→16:00)
[2016-08-27] MEDS: SODIUM CHLORIDE 0.9% FLUSH 10 ML FLUSH IV FLUSH SCH ×2 (09:00→21:17)
[2016-08-27] MEDS: FLUoxetine HCL 20 MG CAP PO SCH (10:00)
[2016-08-27] MEDS: INSULIN DETEMIR 100 UNITS/ML VIAL SQ SCH ×2 (10:02→21:27)
[2016-08-27] MEDS: metroNIDAZOLE 500 MG INJ 100 ML IV SCH ×3 (10:06→14:57)
--- NOTE | 2016-08-27 12:57 | HHI.GIFU ---
Subjective Remarks Resting in bed. States she cannot stand the clear liquid diet and is requesting that this be changed to regular diet so she can order creamed soups with crackers. "1 or 2" loose bowel movements today, no bleeding. States she does have some epigastric discomfort after eating. Objective Vitals I&O Vital Signs Date Time Temp Pulse Resp B/P Pulse Ox O2 Delivery O2 Flow Rate FiO2 08/27/16 12:00 97.2 68 17 112/56 98 08/27/16 07:57 98.5 45 16 99/56 100 08/27/16 07:02 18 08/27/16 05:17 97.5 43 20 105/54 97 08/27/16 03:44 18 08/27/16 01:26 98.5 45 20 156/75 100 08/26/16 20:36 98.1 54 20 108/53 100 08/26/16 20:06 98 21 08/26/16 17:15 96.8 56 18 102/56 99 I/O 08/26/16 08/26/16 08/26/16 08/27/16 08/27/16 08/27/16 07:00 15:00 23:00 07:00 15:00 23:00 Intake Total 700 ml 800 ml 1100 ml Output Total 200 ml Balance 500 ml 800 ml 1100 ml IV Total 800 ml 1100 ml Other 700 ml Output Urine Total 200 ml # Voids 10 2 3 # Bowel Movements 10 1 2 Laboratory Date/Time Procedure Status Source Growth 08/24/16 02:40 Stool Pus ([facility]OL[facility]) - Final Complete Stool Stool NO WBC'S SEEN 08/24/16 02:40 - Final Complete Stool Stool 08/23/16 21:20 Aerobic Blood Culture - Preliminary Resulted Blood Peripheral NO GROWTH IN 4 DAYS 08/23/16 21:20 Anaerobic Blood Culture - Preliminary Resulted Blood Peripheral NO GROWTH IN 4 DAYS Imaging Last Impressions Abdomen/Pelvis CT 08/26/16 0000 Signed Impressions: Service Date/Time: Friday, August 26, 2016 15:12 - CONCLUSION: I see no evidence for mesenteric ischemia. Pee Mcclure MD FACR Abdomen X-Ray 08/24/16 0000 Signed Impressions: Service Date/Time: Wednesday, August 24, 2016 15:27 - CONCLUSION: Negative abdominal series. Angel Lee MD Physical Exam HEENT: Normocephalic; atraumatic; no jaundice. CHEST: CTA CARDIAC: RRR ABDOMEN: Soft, nondistended, nontender; no hepatosplenomegaly; bowel sounds are present in all four quadrants. EXTREMITIES: No clubbing, cyanosis, or edema. SKIN: Normal; no rash; no jaundice. GAMBLING SUPERVISOR: No focal deficits; alert and oriented times three. Assessment and Plan Plan ASSESSMENT: - GIB. S/P EGD/Colonoscopy (08/26/16)------> Esophagus normal, Stomach: normal, Duodenum: large ulcerations in the distal bulb extending into the descending duodenum. Multiple possibly ischemic looking ulcers. Biopsies taken. Also could be crohns ulcers. Ileum normal, at 25cm. Rectum has appearance of ileal pouch. Two biopsies taken. Pathology pending. Abdomen/Pelvis CTA (08/26/16)-----> I see no evidence for mesenteric ischemia. Solumedrol. Rowasa enemas. Cipro/ Flagyl. - Anemia, mild. HH 11.7/36.4. - Duodenal ulcers. CTA negative for mesenteric ischemia. Pathology pending to r/o crohn's. - Leukocytosis. WBC 17.1, is on steroids. Flagyl. Cipro. - Hx Ulcerative colitis, s/p colectomy in June of 1999 per patient. PLAN: - Diet as tolerated - Await pathology - Cont. Steroids - Cont. PPI - Cont. Rowasa enemas for now - Cont. Abx until pathology resulted - Monitor labs - Supportive care - Further recommendations to follow based on results of above - Pt seen and examined by Dr. Borjas and myself and this note is written on his behalf Marjan Doyle Aug 27, 2016 12:57
[2016-08-27] MEDS: PANTOPRAZOLE SOD 40 MG DELAYED RELEASE TAB PO SCH ×2 (14:53→21:18)
--- NOTE | 2016-08-27 16:43 | HHI.PR ---
Subjective Remarks Patient stated she had a 1 bowel movement yesterday she is not sure if there was a blood in it, abdominal pain is 9 out of 10 Blood sugar is better but still not optimized. Objective Vitals Vital Signs Date Time Temp Pulse Resp B/P Pulse Ox O2 Delivery O2 Flow Rate FiO2 08/27/16 16:00 98.9 49 18 121/59 98 08/27/16 12:00 97.2 68 17 112/56 98 08/27/16 07:57 98.5 45 16 99/56 100 08/27/16 07:02 18 08/27/16 05:17 97.5 43 20 105/54 97 08/27/16 03:44 18 08/27/16 01:26 98.5 45 20 156/75 100 08/26/16 20:36 98.1 54 20 108/53 100 08/26/16 20:06 98 21 08/26/16 17:15 96.8 56 18 102/56 99 I/O 08/26/16 08/26/16 08/26/16 08/27/16 08/27/16 08/27/16 07:00 15:00 23:00 07:00 15:00 23:00 Intake Total 700 ml 800 ml 1100 ml Output Total 200 ml Balance 500 ml 800 ml 1100 ml IV Total 800 ml 1100 ml Other 700 ml Output Urine Total 200 ml # Voids 10 2 3 # Bowel Movements 10 1 2 Result Diagram: 08/25/16 0839 08/26/16 0748 Objective Remarks - GENERAL: This is a well-nourished, well-developed obese patient, in no apparent distress. SKIN: No rashes, warm and dry HEAD: Atraumatic. Normocephalic. EYES: Pupils equal round and reactive. Extraocular motions intact. No scleral icterus. ENT: Nose without bleeding, or drainage, Airway patent. NECK: Trachea midline. Supple CARDIOVASCULAR: Radial cardiac without murmurs, gallops, or rubs. RESPIRATORY: Fair air entry bilaterally. No wheezes, rales, or rhonchi. GASTROINTESTINAL: Abdomen soft, much less tenderness, nondistended. Positive bowel sounds MUSCULOSKELETAL: Extremities without clubbing, cyanosis, or edema. Pedal pulses appreciated NEUROLOGICAL: Awake and alert. Moves all extremity. Normal speech.no focal neurological deficit A/P Assessment and Plan 08/24@1315: Acute Worsening abdominal pain without guarding or rebound, acute bradycardia nonsymptomatic, worsening leukocytosis with left shift 14,000 jumped from 9000 >> Stat lactic acid, LDH, abdominal x-ray upright rule out free air >> EKG from today personally reviewed by me showing incomplete right bundle branch and some T inversion on anterior leads however cardiac enzymes which also reviewed by me to set still negative >> Consult psychiatry for depression 08/25: creatinine improving 1.1, cardiac enzyme negative, WBC increased to 17.1 possibly steroid-induced Also blood pressure on the higher side will add clonidine as needed 08/26: Status post EGD >>Esophagus normal, Stomach: normal Duodenum: large ulcerations in the distal bulb extending into the descending duodenum. Multiple possibly ischemic looking ulcers. Biopsies taken. Also could be crohns ulcers Ileum normal, at 25cm. Rectum has appearance of ileal pouch Continue steroid per GI recommendation, CTA to rule out underlying mesenteric ischemic process 08/27: Blood glucose better but not optimized will increase Levemir to 13 units twice a day, will add Novolin 2 units 3 times a day with meals Continue iv antibiotic and iv Solu-Medrol Appreciate GI help, CTA ruled out mesenteric ischemia so the pathology ulcers mostly due to Crohn's, patient still having pain, further recommendation per GI A/P: 60 y/o female with a history of ulcerative colitis came with abdominal pain nausea and hematochezia Sepsis, mostly due to Ulcerative Colitis Exacerbation - elevated lactic acid - Morphine 2 - 4 mg IV q3h PRN pain - consult gastroenterology - Antibiotics: Metronidazole 500 mg IV q8h, renally adjusted Cipro at 400 mg IV q24h - Solu-Medrol 40 mg IV q6h Atypical chest pain - ACS vs referred GI pain - Serial cardiac enzymes and EKGs to r/o ACS - continuous cardiac telemetry to monitor for cardiac arrhythmias Type 2 diabetes mellitus with hyperglycemia - Levemir 10 units subq q12h - Accu checks AC and HS with medium dose Novolog coverage - Hypoglycemia protocol Hyponatremia - initial sodium 125 - NS at 100 cc/hr - repeat BMP and follow trends in sodium level and replace as indicated Acute kidney injury - BUN 34, Creatinine 1.93, eGFR 26 - IVF hydration - recheck BMP in a.m. - repeat BMP and follow trends in renal indices - avoid nephrotoxins DVT prophylaxis Lovenox 30 mg subq q24h Hamilton Garibay MD Aug 27, 2016 16:43
[2016-08-27] MEDS: INSULIN HUMAN REGULAR 1,000 UNITS/10 ML VIAL SQ SCH (17:00)
--- NOTE | 2016-08-27 17:22 | MP ---
cc: SANTOSH BORJAS KHALIL MD DATE OF SURGERY 08/26/2016 PROCEDURE Esophagogastroduodenoscopy with biopsy and colonoscopy with biopsy. INDICATION 1. Lactic acidosis. 2. GI bleed referred by Dr. Garibay. PROCEDURE DETAILS After informed consent was obtained the patient was placed in left side down position. She was sedated by the anesthesia service. After adequate sedation was achieved, the Pentax video gastroscope was inserted in the oropharynx and advanced to the esophagus, stomach and duodenum. It was then slowly withdrawn examining the mucosal surfaces carefully. It was reinserted into the duodenum because of multiple large ulcerations present there. They appeared ischemic. The scope was withdrawn back into the stomach. It was retroflexed in the fundus and cardia. The scope was then straightened and advanced back down into the duodenum again. Three biopsies were obtained from the ulcerated areas. The scope was then withdrawn through the esophagus and the procedure was terminated. A colonoscopy was then performed. Digital rectal examination was normal. The Pentax videoscope was inserted in the anal canal and advanced up into what appeared to be the rectum. The scope was advanced carefully searching for the opening into the more proximal colon, however, instead I was able to advance the scope into the ileum that was located about 25 cm. The ileum was washed with water through the scope, it was then carefully identified and then the scope was then withdrawn back into the rectum which now appears to be an ileal pouch. Retroflex exam was performed in the pouch. The scope was then straightened and two biopsies were obtained from the pouch. The scope was then withdrawn out the anal canal and the procedure was terminated. She tolerated both procedures well and was returned to the recovery area in good condition. FINDINGS 1. The esophagus was normal. 2. The stomach was normal. 3. In the duodenum there were multiple large ulcerations. They were quite deep in the distal bulb extending into the descending duodenum. There were multiple possibly ischemic looking ulcers but also could be Crohn's ulcerations given her history of ulcerative colitis. Biopsies were taken. 4. The ileum was located at 25 cm. 5. The rectum has the appearance of an ileal pouch. Two biopsies were taken. IMPRESSION Multiple large severe ulcers in the duodenum which were possibly ischemic versus possible Crohn disease in a patient with a prior total proctocolectomy and J pouch for ulcerative colitis. RECOMMENDATIONS We will perform a CTA of the abdomen and pelvis because of her history of lactic acidosis and the possibility of duodenal ulcerations from ischemia. If the celiac access appears normal, then recommend steroid therapy to be continued. Santosh Borjas MD HHS/KK /11:20 AM /5:16 PM
[2016-08-27] MEDS: MESALAMINE ENEMA 4 GM/60 ML BTL RECTAL SCH (21:00)
[2016-08-27] MEDS: ONDANSETRON HCL 4 MG/2 ML VIAL IVP PRN (21:20)
[2016-08-28] VITALS (8 sets, daily range): BP systolic 120–150; BP diastolic 56–76; PULSE 51–95; RESP 16–20; TEMP 97.6–101; O2SAT 97–100
[2016-08-28] MEDS: metroNIDAZOLE 500 MG INJ 100 ML IV SCH ×3 (01:29→15:34)
[2016-08-28] MEDS: CIPROFLOXACIN 400 MG PREMIX 200 ML IV SCH (01:30)
[2016-08-28] MEDS: SODIUM CHLOR 0.9% 1000 ML INJ 1,000 ML IV SCH ×3 (01:33→20:56)
[2016-08-28] MEDS: MORPHINE SULFATE 4 MG/ML INJ IV PUSH PRN ×6 (03:56→23:59)
[2016-08-28] MEDS: INSULIN ASPART SUPPLEMENTAL SCALE SQ SCH ×4 (06:27→20:40)
[2016-08-28] MEDS: INSULIN HUMAN REGULAR 1,000 UNITS/10 ML VIAL SQ SCH ×3 (08:00→16:56)
[2016-08-28] MEDS: INSULIN DETEMIR 100 UNITS/ML VIAL SQ SCH ×2 (08:12→20:55)
[2016-08-28] MEDS: methylPREDNISolone SOD SUCC 40 MG/1 ML VIAL IV PUSH SCH ×2 (08:18→20:38)
[2016-08-28] MEDS: PANTOPRAZOLE SOD 40 MG DELAYED RELEASE TAB PO SCH ×2 (08:20→20:38)
[2016-08-28] MEDS: FLUoxetine HCL 20 MG CAP PO SCH (08:20)
[2016-08-28] MEDS: SODIUM CHLORIDE 0.9% FLUSH 10 ML FLUSH IV FLUSH SCH ×2 (08:20→20:55)
[2016-08-28 11:20] LABS: BASOPHIL % 0.1 % (0.0-2.0); EOSINOPHIL % 0.1 % (0.0-4.0); HEMATOCRIT 35.1 % (35.0-46.0); HEMO FLAGS DIFF FINAL; LYMPH % 8.2 % (9.0-44.0); LYMPHOCYTE # 1.7 TH/MM3 (1.0-4.8); MEAN CELL VOLUME 89.7 FL (80.0-100.0); MEAN CORPUSCULAR HEMOGLOBIN 29.4 PG (27.0-34.0); MEAN CORPUSCULAR HGB CONC 32.8 % (32.0-36.0); MONO % 7.9 % (0.0-8.0); NEUT % 83.7 % (16.0-70.0); PLATELET COUNT 167 TH/MM3 (150-450); RED BLOOD COUNT 3.92 MIL/MM3 (4.00-5.30); RED CELL DISTRIBUTION WIDTH 14.1 % (11.6-17.2); WHITE BLOOD COUNT 20.3 TH/MM3 (4.0-11.0)
--- NOTE | 2016-08-28 11:49 | HHI.GIFU ---
Subjective Remarks Resting in bed. Pain slightly improved. States she has not moved her bowels yet, but feels that she may soon. Tolerating diet. Objective Vitals I&O Vital Signs Date Time Temp Pulse Resp B/P Pulse Ox O2 Delivery O2 Flow Rate FiO2 08/28/16 08:00 97.7 77 17 124/60 100 08/28/16 04:30 98.0 51 16 145/69 100 08/28/16 00:20 97.9 52 16 150/76 100 08/27/16 21:30 97.7 50 16 158/75 100 08/27/16 19:00 43 08/27/16 16:00 98.9 49 18 121/59 98 08/27/16 12:00 97.2 68 17 112/56 98 I/O 08/27/16 08/27/16 08/27/16 08/28/16 08/28/16 08/28/16 07:00 15:00 23:00 07:00 15:00 23:00 Intake Total 1100 ml 240 ml 1900 ml 200 ml Balance 1100 ml 240 ml 1900 ml 200 ml Intake Oral 240 ml 900 ml 200 ml IV Total 1100 ml 1000 ml # Voids 3 2 0 0 # Bowel Movements 2 1 0 0 Laboratory Laboratory Tests Test 08/28/16 10:33 White Blood Count 20.3 Red Blood Count 3.92 Hemoglobin 11.5 Hematocrit 35.1 Mean Corpuscular Volume 89.7 Mean Corpuscular Hemoglobin 29.4 Mean Corpuscular Hemoglobin 32.8 Concent Red Cell Distribution Width 14.1 Platelet Count 167 Mean Platelet Volume 9.6 Neutrophils (%) (Auto) 83.7 Lymphocytes (%) (Auto) 8.2 Monocytes (%) (Auto) 7.9 Eosinophils (%) (Auto) 0.1 Basophils (%) (Auto) 0.1 Neutrophils # (Auto) 17.0 Lymphocytes # (Auto) 1.7 Monocytes # (Auto) 1.6 Eosinophils # (Auto) 0.0 Basophils # (Auto) 0.0 CBC Comment DIFF FINAL Differential Comment Hematology Comments Date/Time Procedure Status Source Growth 08/24/16 02:40 Stool Pus ([facility]) - Final Complete Stool Stool NO WBC'S SEEN 08/24/16 02:40 - Final Complete Stool Stool 08/23/16 21:20 Aerobic Blood Culture - Final Complete Blood Peripheral NO GROWTH IN 5 DAYS 08/23/16 21:20 Anaerobic Blood Culture - Final Complete Blood Peripheral NO GROWTH IN 5 DAYS Imaging Last Impressions Abdomen/Pelvis CT 08/26/16 0000 Signed Impressions: Service Date/Time: Friday, August 26, 2016 15:12 - CONCLUSION: I see no evidence for mesenteric ischemia. Pee Mcclure MD FACR Abdomen X-Ray 08/24/16 0000 Signed Impressions: Service Date/Time: Wednesday, August 24, 2016 15:27 - CONCLUSION: Negative abdominal series. Angel Lee MD Physical Exam HEENT: Normocephalic; atraumatic; no jaundice. CHEST: CTA CARDIAC: RRR ABDOMEN: Soft, nondistended, nontender; no hepatosplenomegaly; bowel sounds are present in all four quadrants. EXTREMITIES: No clubbing, cyanosis, or edema. SKIN: Normal; no rash; no jaundice. PIPE FITTER WELDING: No focal deficits; alert and oriented times three. Assessment and Plan Plan ASSESSMENT: - GIB. S/P EGD/Colonoscopy (08/26/16)------> Esophagus normal, Stomach: normal, Duodenum: large ulcerations in the distal bulb extending into the descending duodenum. Multiple possibly ischemic looking ulcers. Biopsies taken. Also could be crohns ulcers. Ileum normal, at 25cm. Rectum has appearance of ileal pouch. Two biopsies taken. Pathology pending. Abdomen/Pelvis CTA (08/26/16)-----> I see no evidence for mesenteric ischemia. Solumedrol was decreased. Rowasa enemas. Cipro/Flagyl. HH stable 11.5/35.1. - Anemia, mild. 11.5/35.1. - Duodenal ulcers. CTA negative for mesenteric ischemia. Pathology pending to r/o crohn's. Solumedrol (decreased yesterday), ?crohn's. - Leukocytosis. WBC 20.3, is on steroids. Flagyl. Cipro. - Hx Ulcerative colitis, s/p colectomy in June of 1999 per patient. PLAN: - Diet as tolerated - Await pathology - Cont. Steroids (decreased dosage) - Cont. PPI - Cont. Rowasa enemas for now - Cont. Abx until pathology resulted - Monitor labs - TB Quantiferon Gold, Hepatitis B testing in anticipation of possibly needing biologics - Supportive care - Further recommendations to follow based on results of above - Pt seen and examined by Dr. Borjas and myself and this note is written on his behalf Marjan Doyle Aug 28, 2016 11:48
[2016-08-28] MEDS: ONDANSETRON HCL 4 MG/2 ML VIAL IVP PRN ×2 (13:32→23:59)
--- NOTE | 2016-08-28 16:32 | HHI.PR ---
Subjective Remarks She stated abdominal pain is slightly better than yesterday but still about 5 No nausea or vomiting GI following for possible biological medication initiated for Crohn's Objective Vitals Vital Signs Date Time Temp Pulse Resp B/P Pulse Ox O2 Delivery O2 Flow Rate FiO2 08/28/16 16:00 98.0 71 18 122/58 98 08/28/16 14:00 13 08/28/16 12:00 97.6 65 19 144/65 97 08/28/16 08:00 97.7 77 17 124/60 100 08/28/16 04:30 98.0 51 16 145/69 100 08/28/16 00:20 97.9 52 16 150/76 100 08/27/16 21:30 97.7 50 16 158/75 100 08/27/16 19:00 43 I/O 08/27/16 08/27/16 08/27/16 08/28/16 08/28/16 08/28/16 07:00 15:00 23:00 07:00 15:00 23:00 Intake Total 1100 ml 240 ml 1900 ml 200 ml 240 ml Output Total 2 ml Balance 1100 ml 240 ml 1900 ml 200 ml 238 ml Intake Oral 240 ml 900 ml 200 ml 240 ml IV Total 1100 ml 1000 ml Stool Total 2 ml # Voids 3 2 0 0 3 # Bowel Movements 2 1 0 0 1 Result Diagram: 08/28/16 1033 08/26/16 0748 Objective Remarks - GENERAL: This is a well-nourished, well-developed obese patient, in no apparent distress. SKIN: No rashes, warm and dry HEAD: Atraumatic. Normocephalic. EYES: Pupils equal round and reactive. Extraocular motions intact. No scleral icterus. ENT: Nose without bleeding, or drainage, Airway patent. NECK: Trachea midline. Supple CARDIOVASCULAR: Radial cardiac without murmurs, gallops, or rubs. RESPIRATORY: Fair air entry bilaterally. No wheezes, rales, or rhonchi. GASTROINTESTINAL: Abdomen soft, much less tenderness, nondistended. Positive bowel sounds MUSCULOSKELETAL: Extremities without clubbing, cyanosis, or edema. Pedal pulses appreciated NEUROLOGICAL: Awake and alert. Moves all extremity. Normal speech.no focal neurological deficit A/P Assessment and Plan 08/24@1315: Acute Worsening abdominal pain without guarding or rebound, acute bradycardia nonsymptomatic, worsening leukocytosis with left shift 14,000 jumped from 9000 >> Stat lactic acid, LDH, abdominal x-ray upright rule out free air >> EKG from today personally reviewed by me showing incomplete right bundle branch and some T inversion on anterior leads however cardiac enzymes which also reviewed by me to set still negative >> Consult psychiatry for depression 08/25: creatinine improving 1.1, cardiac enzyme negative, WBC increased to 17.1 possibly steroid-induced Also blood pressure on the higher side will add clonidine as needed 08/26: Status post EGD >>Esophagus normal, Stomach: normal Duodenum: large ulcerations in the distal bulb extending into the descending duodenum. Multiple possibly ischemic looking ulcers. Biopsies taken. Also could be crohns ulcers Ileum normal, at 25cm. Rectum has appearance of ileal pouch Continue steroid per GI recommendation, CTA to rule out underlying mesenteric ischemic process 08/27: Blood glucose better but not optimized will increase Levemir to 13 units twice a day, will add Novolin 2 units 3 times a day with meals Continue iv antibiotic and iv Solu-Medrol Appreciate GI help, CTA ruled out mesenteric ischemia so the pathology ulcers mostly due to Crohn's, patient still having pain, further recommendation per GI 08/28: Abdominal pain is improving minimally, continue Solu-Medrol, GI planning on biological agent once screening for TB and hepatitis is done Continue antibiotic till pathology available WBC increased to 20 K mostly due to steroid Fasting hyperglycemia in the 60s, will decrease night dose to 10 units Levemir A/P: 60 y/o female with a history of ulcerative colitis came with abdominal pain nausea and hematochezia Sepsis, mostly due to Ulcerative Colitis Exacerbation - elevated lactic acid - Morphine 2 - 4 mg IV q3h PRN pain - consult gastroenterology - Antibiotics: Metronidazole 500 mg IV q8h, renally adjusted Cipro at 400 mg IV q24h - Solu-Medrol 40 mg IV q6h Atypical chest pain - ACS vs referred GI pain - Serial cardiac enzymes and EKGs to r/o ACS - continuous cardiac telemetry to monitor for cardiac arrhythmias Type 2 diabetes mellitus with hyperglycemia - Levemir 10 units subq q12h - Accu checks AC and HS with medium dose Novolog coverage - Hypoglycemia protocol Hyponatremia - initial sodium 125 - NS at 100 cc/hr - repeat BMP and follow trends in sodium level and replace as indicated Acute kidney injury - BUN 34, Creatinine 1.93, eGFR 26 - IVF hydration - recheck BMP in a.m. - repeat BMP and follow trends in renal indices - avoid nephrotoxins DVT prophylaxis Lovenox 30 mg subq q24h Hamilton Garibay MD Aug 28, 2016 16:32
[2016-08-28] MEDS: ALPRAZolam 1 MG TAB PO PRN (18:07)
[2016-08-28] MEDS: MESALAMINE ENEMA 4 GM/60 ML BTL RECTAL SCH (20:55)
[2016-08-29 01:29] VITALS: BP 108/59; PULSE 90; RESP 18; TEMP 99.9; O2SAT 96
[2016-08-29 06:11] VITALS: BP 105/52; PULSE 73; RESP 18; TEMP 99.6; O2SAT 96
[2016-08-29] MEDS: MORPHINE SULFATE 4 MG/ML INJ IV PUSH PRN ×5 (06:22→23:11)
[2016-08-29] MEDS: INSULIN ASPART SUPPLEMENTAL SCALE SQ SCH ×4 (06:22→21:25)
[2016-08-29 08:00] VITALS: BP 114/57; PULSE 75; RESP 18; TEMP 97.7; O2SAT 97
[2016-08-29] MEDS: INSULIN DETEMIR 100 UNITS/ML VIAL SQ SCH ×2 (08:00→21:26)
[2016-08-29] MEDS: INSULIN HUMAN REGULAR 1,000 UNITS/10 ML VIAL SQ SCH ×3 (08:00→16:33)
[2016-08-29 08:19] LABS: AUTOMATED NEUTROPHIL # 14.4 TH/MM3 (1.8-7.7); HEMATOCRIT 29.8 % (35.0-46.0); HEMO FLAGS DIFF FINAL; LYMPH % 6.3 % (9.0-44.0); MEAN CELL VOLUME 89.9 FL (80.0-100.0); MEAN CORPUSCULAR HEMOGLOBIN 29.7 PG (27.0-34.0); MEAN CORPUSCULAR HGB CONC 33.1 % (32.0-36.0); MONO % 7.4 % (0.0-8.0); NEUT % 86.3 % (16.0-70.0); PLATELET COUNT 156 TH/MM3 (150-450); RED BLOOD COUNT 3.31 MIL/MM3 (4.00-5.30); RED CELL DISTRIBUTION WIDTH 14.2 % (11.6-17.2); WHITE BLOOD COUNT 16.6 TH/MM3 (4.0-11.0)
[2016-08-29 08:31] LABS: BICARBONATE 25.3 MEQ/L (21.0-32.0); POTASSIUM 3.8 MEQ/L (3.5-5.1)
[2016-08-29 08:44] LABS: CALCIUM-PROTEIN CORRECTED 8.8 MG/DL (8.5-10.1)
[2016-08-29] MEDS: SODIUM CHLORIDE 0.9% FLUSH 10 ML FLUSH IV FLUSH SCH ×2 (09:00→21:00)
[2016-08-29] MEDS: SODIUM CHLOR 0.9% 1000 ML INJ 1,000 ML IV SCH ×2 (09:38→16:36)
[2016-08-29] MEDS: FLUoxetine HCL 20 MG CAP PO SCH (09:40)
[2016-08-29] MEDS: PANTOPRAZOLE SOD 40 MG DELAYED RELEASE TAB PO SCH ×2 (09:40→21:23)
[2016-08-29] MEDS: methylPREDNISolone SOD SUCC 40 MG/1 ML VIAL IV PUSH SCH ×2 (09:40→21:23)
[2016-08-29] MEDS: metroNIDAZOLE 500 MG INJ 100 ML IV SCH ×3 (09:42→15:18)
[2016-08-29 12:00] VITALS: BP 127/58; PULSE 75; RESP 18; TEMP 97.5; O2SAT 98
[2016-08-29 12:00] LABS: HEPATITIS B SURFACE ANTIBODY 0 mIU/mL
--- NOTE | 2016-08-29 15:50 | HHI.PR ---
Subjective Remarks Abdominal pain slightly better but is still above 5 Patient had chills last night, and diarrhea runny bowel movement WBC dropped to 16 K She is afebrile Objective Vitals Vital Signs Date Time Temp Pulse Resp B/P Pulse Ox O2 Delivery O2 Flow Rate FiO2 08/29/16 15:24 17 08/29/16 12:00 97.5 75 18 127/58 98 08/29/16 09:55 16 08/29/16 08:00 97.7 75 18 114/57 97 08/29/16 06:11 99.6 73 18 105/52 96 08/29/16 01:29 99.9 90 18 108/59 96 08/28/16 21:26 101.0 95 20 120/56 97 08/28/16 19:56 81 08/28/16 16:50 63 08/28/16 16:00 98.0 71 18 122/58 98 I/O 08/28/16 08/28/16 08/28/16 08/29/16 08/29/16 08/29/16 07:00 15:00 23:00 07:00 15:00 23:00 Intake Total 200 ml 240 ml Output Total 2 ml Balance 200 ml 238 ml Intake Oral 200 ml 240 ml Stool Total 2 ml # Voids 0 3 1 # Bowel Movements 0 1 3 Result Diagram: 08/29/1671808/29/16718 Objective Remarks - GENERAL: This is a well-nourished, well-developed obese patient, in no apparent distress. SKIN: No rashes, warm and dry HEAD: Atraumatic. Normocephalic. EYES: Pupils equal round and reactive. Extraocular motions intact. No scleral icterus. ENT: Nose without bleeding, or drainage, Airway patent. NECK: Trachea midline. Supple CARDIOVASCULAR: Radial cardiac without murmurs, gallops, or rubs. RESPIRATORY: Fair air entry bilaterally. No wheezes, rales, or rhonchi. GASTROINTESTINAL: Abdomen soft, drawing in machine tender to palpation, nondistended. Positive bowel sounds MUSCULOSKELETAL: Extremities without clubbing, cyanosis, or edema. Pedal pulses appreciated NEUROLOGICAL: Awake and alert. Moves all extremity. Normal speech.no focal neurological deficit A/P Assessment and Plan 08/24@1315: Acute Worsening abdominal pain without guarding or rebound, acute bradycardia nonsymptomatic, worsening leukocytosis with left shift 14,000 jumped from 9000 >> Stat lactic acid, LDH, abdominal x-ray upright rule out free air >> EKG from today personally reviewed by me showing incomplete right bundle branch and some T inversion on anterior leads however cardiac enzymes which also reviewed by me to set still negative >> Consult psychiatry for depression 08/25: creatinine improving 1.1, cardiac enzyme negative, WBC increased to 17.1 possibly steroid-induced Also blood pressure on the higher side will add clonidine as needed 08/26: Status post EGD >>Esophagus normal, Stomach: normal Duodenum: large ulcerations in the distal bulb extending into the descending duodenum. Multiple possibly ischemic looking ulcers. Biopsies taken. Also could be crohns ulcers Ileum normal, at 25cm. Rectum has appearance of ileal pouch Continue steroid per GI recommendation, CTA to rule out underlying mesenteric ischemic process 08/27: Blood glucose better but not optimized will increase Levemir to 13 units twice a day, will add Novolin 2 units 3 times a day with meals Continue iv antibiotic and iv Solu-Medrol Appreciate GI help, CTA ruled out mesenteric ischemia so the pathology ulcers mostly due to Crohn's, patient still having pain, further recommendation per GI 08/28: Abdominal pain is improving minimally, continue Solu-Medrol, GI planning on biological agent once screening for TB and hepatitis is done Continue antibiotic till pathology available WBC increased to 20 K mostly due to steroid Fasting hyperglycemia in the 60s, will decrease night dose to 10 units Levemir 08/29: Continue iv antibiotic, tapering Solu-Medrol, hepatitis B antigen negative, antibody quantity pending as well as TB, awaiting pathology anticipating biological treatment WBC dropped to 16 K But glucose much better control A/P: 60 y/o female with a history of ulcerative colitis came with abdominal pain nausea and hematochezia Sepsis, mostly due to Ulcerative Colitis Exacerbation - elevated lactic acid - Morphine 2 - 4 mg IV q3h PRN pain - consult gastroenterology - Antibiotics: Metronidazole 500 mg IV q8h, renally adjusted Cipro at 400 mg IV q24h - Solu-Medrol 40 mg IV q6h Atypical chest pain - ACS vs referred GI pain - Serial cardiac enzymes and EKGs to r/o ACS - continuous cardiac telemetry to monitor for cardiac arrhythmias Type 2 diabetes mellitus with hyperglycemia - Levemir 10 units subq q12h - Accu checks AC and HS with medium dose Novolog coverage - Hypoglycemia protocol Hyponatremia - initial sodium 125 - NS at 100 cc/hr - repeat BMP and follow trends in sodium level and replace as indicated Acute kidney injury - BUN 34, Creatinine 1.93, eGFR 26 - IVF hydration - recheck BMP in a.m. - repeat BMP and follow trends in renal indices - avoid nephrotoxins DVT prophylaxis Lovenox 30 mg subq q24h Hamilton Garibay MD Aug 29, 2016 15:50
[2016-08-29 16:00] VITALS: BP 104/58; PULSE 78; RESP 18; TEMP 96.7; O2SAT 94
--- NOTE | 2016-08-29 17:21 | HHI.GIFU ---
Subjective Remarks Resting in bed. Pain slightly improved. Not able to take much po still. No bleeding. Objective Vitals I&O Vital Signs Date Time Temp Pulse Resp B/P Pulse Ox O2 Delivery O2 Flow Rate FiO2 08/29/16 16:00 96.7 78 18 104/58 94 08/29/16 15:24 17 08/29/16 12:00 97.5 75 18 127/58 98 08/29/16 09:55 16 08/29/16 08:00 97.7 75 18 114/57 97 08/29/16 06:11 99.6 73 18 105/52 96 08/29/16 01:29 99.9 90 18 108/59 96 08/28/16 21:26 101.0 95 20 120/56 97 08/28/16 19:56 81 I/O 08/28/16 08/28/16 08/28/16 08/29/16 08/29/16 08/29/16 07:00 15:00 23:00 07:00 15:00 23:00 Intake Total 200 ml 240 ml 480 ml Output Total 2 ml Balance 200 ml 238 ml 480 ml Intake Oral 200 ml 240 ml 480 ml Stool Total 2 ml # Voids 0 3 1 4 # Bowel Movements 0 1 3 2 Laboratory Laboratory Tests Test 08/29/16 07:19 White Blood Count 16.6 Red Blood Count 3.31 Hemoglobin 9.9 Hematocrit 29.8 Mean Corpuscular Volume 89.9 Mean Corpuscular Hemoglobin 29.7 Mean Corpuscular Hemoglobin 33.1 Concent Red Cell Distribution Width 14.2 Platelet Count 156 Mean Platelet Volume 9.4 Neutrophils (%) (Auto) 86.3 Lymphocytes (%) (Auto) 6.3 Monocytes (%) (Auto) 7.4 Eosinophils (%) (Auto) 0.0 Basophils (%) (Auto) 0.0 Neutrophils # (Auto) 14.4 Lymphocytes # (Auto) 1.0 Monocytes # (Auto) 1.2 Eosinophils # (Auto) 0.0 Basophils # (Auto) 0.0 CBC Comment DIFF FINAL Differential Comment Sodium Level 138 Potassium Level 3.8 Chloride Level 106 Carbon Dioxide Level 25.3 Anion Gap 7 Blood Urea Nitrogen 11 Creatinine 0.99 Estimat Glomerular Filtration 57 Rate Random Glucose 162 Calcium Level 7.3 Protein Corrected Calcium 8.8 Total Protein 4.4 Imaging Last Impressions Abdomen/Pelvis CT 08/26/16 0000 Signed Impressions: Service Date/Time: Friday, August 26, 2016 15:12 - CONCLUSION: I see no evidence for mesenteric ischemia. Pee Mcclure MD FACR Abdomen X-Ray 08/24/16 0000 Signed Impressions: Service Date/Time: Wednesday, August 24, 2016 15:27 - CONCLUSION: Negative abdominal series. Angel Lee MD Physical Exam HEENT: Normocephalic; atraumatic; no jaundice. CHEST: CTA CARDIAC: RRR ABDOMEN: Soft, nondistended, nontender; no hepatosplenomegaly; bowel sounds are present in all four quadrants. EXTREMITIES: No clubbing, cyanosis, or edema. SKIN: Normal; no rash; no jaundice. SUPERVISOR INTERMEDIATES: No focal deficits; alert and oriented times three. Assessment and Plan Plan ASSESSMENT: - GIB. S/P EGD/Colonoscopy (08/26/16)------> Esophagus normal, Stomach: normal, Duodenum: large ulcerations in the distal bulb extending into the descending duodenum. Multiple possibly ischemic looking ulcers. Biopsies taken. Also could be crohns ulcers. Ileum normal, at 25cm. Rectum has appearance of ileal pouch. Two biopsies taken. Pathology focally ulcerated and necrotic small intestinal mucosal biopsies exhibiting features suggestive of ischemia, distorted small intestinal mucosal biopsies with acute inflammation, clinically J pouch biopsy. Abdomen /Pelvis CTA (08/26/16)-----> I see no evidence for mesenteric ischemia. Solumedrol was decreased. Rowasa enemas. Cipro/Flagyl. HH 9.9/29.8. Will get repeat EGD with biopsies to evaluate ulcerations/repeat biopsies. - Anemia, mild. HH 9.9/29.8. - Duodenal ulcers. CTA negative for mesenteric ischemia. Pathology pending to r/o crohn's. Solumedrol (decreased yesterday), ?crohn's. - Leukocytosis. WBC 16.6, is on steroids. Flagyl. Cipro. - Hx Ulcerative colitis, s/p colectomy in June of 1999 per patient. PLAN: - EGD in am - Obtain consents - NPO after MN - Diet as tolerated - Cont. Steroids (decreased dosage) - Cont. PPI - Cont. Rowasa enemas for now - Monitor labs - TB Quantiferon Gold, Hepatitis B testing in anticipation of possibly needing biologics - Supportive care - Further recommendations to follow based on results of above - Pt seen and examined by Dr. Borjas and myself and this note is written on his behalf Marjan Doyle Aug 29, 2016 17:21
[2016-08-29 20:00] VITALS: BP 114/58; PULSE 77; RESP 18; TEMP 100.2; O2SAT 18
[2016-08-29] MEDS: MESALAMINE ENEMA 4 GM/60 ML BTL RECTAL SCH (21:00)
[2016-08-29] MEDS: CIPROFLOXACIN 400 MG PREMIX 200 ML IV SCH ×2 (21:33)
[2016-08-30] VITALS: BP 114/58; PULSE 77; RESP 18; TEMP 100.2; O2SAT 96
[2016-08-30] MEDS ORDERED: MORPHINE SULFATE 8 MG/ML INJ IV PUSH ONE (00:30)
[2016-08-30] MEDS: metroNIDAZOLE 500 MG INJ 100 ML IV SCH ×3 (00:33→17:05)
[2016-08-30] MEDS: MORPHINE SULFATE 4 MG/ML INJ IV PUSH PRN ×4 (02:56→23:09)
[2016-08-30 04:00] VITALS: BP 117/60; PULSE 74; RESP 18; TEMP 99.1; O2SAT 94
[2016-08-30] MEDS: SODIUM CHLOR 0.9% 1000 ML INJ 1,000 ML IV SCH ×2 (06:38→14:00)
[2016-08-30] MEDS: INSULIN ASPART SUPPLEMENTAL SCALE SQ SCH ×4 (06:39→20:47)
[2016-08-30 08:00] VITALS: BP 118/61; PULSE 71; RESP 18; TEMP 99.5; O2SAT 97
[2016-08-30] MEDS: INSULIN HUMAN REGULAR 1,000 UNITS/10 ML VIAL SQ SCH ×3 (08:00→17:07)
[2016-08-30] MEDS: INSULIN DETEMIR 100 UNITS/ML VIAL SQ SCH ×2 (08:00→20:47)
[2016-08-30] MEDS: SODIUM CHLORIDE 0.9% FLUSH 10 ML FLUSH IV FLUSH SCH ×2 (08:53→20:44)
[2016-08-30] MEDS: methylPREDNISolone SOD SUCC 40 MG/1 ML VIAL IV PUSH SCH ×2 (08:58→20:44)
[2016-08-30] MEDS: FLUoxetine HCL 20 MG CAP PO SCH (08:58)
[2016-08-30] MEDS: PANTOPRAZOLE SOD 40 MG DELAYED RELEASE TAB PO SCH ×2 (08:58→20:44)
[2016-08-30] MEDS ORDERED: PROPOFOL 200 MG/20 ML AMP IV ONE (11:39)
--- NOTE | 2016-08-30 11:53 | HHI.GIFU ---
Subjective Remarks Immediate postop note: EGD with biopsy Indication: duodenal ulcer Meds: MAC Findings: Esophagus: copious cheesy material in mid to distal esophagus, biopsy taken possible luis Stomach: antral gastritis Duodenum: large deep ulcer in distal bulb at 12:00 position..Ulcer in descending duodenum appears improved . Looks more like typical PUD now. Objective Vitals I&O Vital Signs Date Time Temp Pulse Resp B/P Pulse Ox O2 Delivery O2 Flow Rate FiO2 08/30/16 08:00 99.5 71 18 118/61 97 08/30/16 04:00 99.1 74 18 117/60 94 08/30/16 03:01 18 08/30/16 00:00 100.2 77 18 114/58 96 08/29/16 20:00 100.2 77 18 114/58 18 08/29/16 16:00 96.7 78 18 104/58 94 08/29/16 12:00 97.5 75 18 127/58 98 I/O 08/29/16 08/29/16 08/29/16 08/30/16 08/30/16 08/30/16 07:00 15:00 23:00 07:00 15:00 23:00 Intake Total 480 ml 100 ml Output Total 1000 ml Balance 480 ml -1000 ml 100 ml Intake Oral 480 ml IV Total 100 ml Output Urine Total 1000 ml # Voids 1 4 # Bowel Movements 3 2 4 Physical Exam HEENT: Normocephalic; atraumatic; no jaundice. CHEST: CTA CARDIAC: RRR ABDOMEN: Soft, nondistended, nontender; no hepatosplenomegaly; bowel sounds are present in all four quadrants. EXTREMITIES: No clubbing, cyanosis, or edema. SKIN: Normal; no rash; no jaundice. RUGBY UNION FOOTBALLER: No focal deficits; alert and oriented times three. Assessment and Plan Plan ASSESSMENT: - GIB. S/P EGD/Colonoscopy (08/26/16)------> Esophagus normal, Stomach: normal, Duodenum: large ulcerations in the distal bulb extending into the descending duodenum. Multiple possibly ischemic looking ulcers. Biopsies taken. Also could be crohns ulcers. Ileum normal, at 25cm. Rectum has appearance of ileal pouch. Two biopsies taken. Pathology focally ulcerated and necrotic small intestinal mucosal biopsies exhibiting features suggestive of ischemia, distorted small intestinal mucosal biopsies with acute inflammation, clinically J pouch biopsy. Abdomen /Pelvis CTA (08/26/16)-----> I see no evidence for mesenteric ischemia. Solumedrol was decreased. Rowasa enemas. Cipro/Flagyl. HH 9.9/29.8. Will get repeat EGD with biopsies to evaluate ulcerations/repeat biopsies. - Anemia, mild. HH 9.9/29.8. - Duodenal ulcers. CTA negative for mesenteric ischemia. Pathology pending to r/o crohn's. Solumedrol (decreased yesterday), ?crohn's. - Leukocytosis. WBC 16.6, is on steroids. Flagyl. Cipro. - Hx Ulcerative colitis, s/p colectomy in June of 1999 per patient. - EGD today showed ulcers in duodenum looking less like crohns ulcers and more typical PUD. Esophagus possible luis esophagitis. PLAN: - Diflucan -- Diet as tolerated - Cont. Steroids (decreased dosage) - Cont. PPI - Cont. Rowasa enemas for now - Monitor labs - TB Quantiferon Gold, Hepatitis B testing in anticipation of possibly needing biologics - Probable discharge tomorrow and followup in office in 2 weeks. Santosh Borjas MD Aug 30, 2016 11:53
--- NOTE | 2016-08-30 14:43 | HHI.PR ---
Subjective Remarks resting in bed she just had a bowel movement, it with abdominal pain above 5 no fever,she's emotional, she is hoping to get her symptoms improved Objective Vitals Vital Signs Date Time Temp Pulse Resp B/P Pulse Ox O2 Delivery O2 Flow Rate FiO2 08/30/16 12:10 66 18 113/55 96 08/30/16 12:00 70 18 127/58 99 08/30/16 11:50 99.1 79 18 121/56 100 08/30/16 08:00 99.5 71 18 118/61 97 08/30/16 04:00 99.1 74 18 117/60 94 08/30/16 03:01 18 08/30/16 00:00 100.2 77 18 114/58 96 08/29/16 20:00 100.2 77 18 114/58 18 08/29/16 16:00 96.7 78 18 104/58 94 I/O 08/29/16 08/29/16 08/29/16 08/30/16 08/30/16 08/30/16 07:00 15:00 23:00 07:00 15:00 23:00 Intake Total 480 ml 100 ml Output Total 1000 ml Balance 480 ml -1000 ml 100 ml Intake Oral 480 ml IV Total 100 ml Output Urine Total 1000 ml # Voids 1 4 # Bowel Movements 3 2 4 Result Diagram: 08/29/1671808/29/16718 Objective Remarks - GENERAL: This is a well-nourished, well-developed obese patient, in no apparent distress. SKIN: No rashes, warm and dry HEAD: Atraumatic. Normocephalic. EYES: Pupils equal round and reactive. Extraocular motions intact. No scleral icterus. ENT: Nose without bleeding, or drainage, Airway patent. NECK: Trachea midline. Supple CARDIOVASCULAR: Radial cardiac without murmurs, gallops, or rubs. RESPIRATORY: Fair air entry bilaterally. No wheezes, rales, or rhonchi. GASTROINTESTINAL: Abdomen soft, granulator tender to palpation, nondistended. Positive bowel sounds MUSCULOSKELETAL: Extremities without clubbing, cyanosis, or edema. Pedal pulses appreciated NEUROLOGICAL: Awake and alert. Moves all extremity. Normal speech.no focal neurological deficit A/P Assessment and Plan 08/24@1315: Acute Worsening abdominal pain without guarding or rebound, acute bradycardia nonsymptomatic, worsening leukocytosis with left shift 14,000 jumped from 9000 >> Stat lactic acid, LDH, abdominal x-ray upright rule out free air >> EKG from today personally reviewed by me showing incomplete right bundle branch and some T inversion on anterior leads however cardiac enzymes which also reviewed by me to set still negative >> Consult psychiatry for depression 08/25: creatinine improving 1.1, cardiac enzyme negative, WBC increased to 17.1 possibly steroid-induced Also blood pressure on the higher side will add clonidine as needed 08/26: Status post EGD >>Esophagus normal, Stomach: normal Duodenum: large ulcerations in the distal bulb extending into the descending duodenum. Multiple possibly ischemic looking ulcers. Biopsies taken. Also could be crohns ulcers Ileum normal, at 25cm. Rectum has appearance of ileal pouch Continue steroid per GI recommendation, CTA to rule out underlying mesenteric ischemic process 08/27: Blood glucose better but not optimized will increase Levemir to 13 units twice a day, will add Novolin 2 units 3 times a day with meals Continue iv antibiotic and iv Solu-Medrol Appreciate GI help, CTA ruled out mesenteric ischemia so the pathology ulcers mostly due to Crohn's, patient still having pain, further recommendation per GI 08/28: Abdominal pain is improving minimally, continue Solu-Medrol, GI planning on biological agent once screening for TB and hepatitis is done Continue antibiotic till pathology available WBC increased to 20 K mostly due to steroid Fasting hyperglycemia in the 60s, will decrease night dose to 10 units Levemir 08/29: Continue iv antibiotic, tapering Solu-Medrol, hepatitis B antigen negative, antibody quantity pending as well as TB, awaiting pathology anticipating biological treatment WBC dropped to 16 K But glucose much better control 08/30: EGD today Continue steroid Monitor TB hepatitis result GI to start biological medication A/P: 60 y/o female with a history of ulcerative colitis came with abdominal pain nausea and hematochezia Sepsis, mostly due to Ulcerative Colitis Exacerbation - elevated lactic acid - Morphine 2 - 4 mg IV q3h PRN pain - consult gastroenterology - Antibiotics: Metronidazole 500 mg IV q8h, renally adjusted Cipro at 400 mg IV q24h - Solu-Medrol 40 mg IV q6h Atypical chest pain - ACS vs referred GI pain - Serial cardiac enzymes and EKGs to r/o ACS - continuous cardiac telemetry to monitor for cardiac arrhythmias Type 2 diabetes mellitus with hyperglycemia - Levemir 10 units subq q12h - Accu checks AC and HS with medium dose Novolog coverage - Hypoglycemia protocol Hyponatremia - initial sodium 125 - NS at 100 cc/hr - repeat BMP and follow trends in sodium level and replace as indicated Acute kidney injury - BUN 34, Creatinine 1.93, eGFR 26 - IVF hydration - recheck BMP in a.m. - repeat BMP and follow trends in renal indices - avoid nephrotoxins DVT prophylaxis Lovenox 30 mg subq q24h Hamilton Garibay MD Aug 30, 2016 14:43
[2016-08-30] MEDS: ALPRAZolam 1 MG TAB PO PRN (15:10)
[2016-08-30] MEDS: FLUCONAZOLE 100 MG PREMIX BAG 50 ML IV SCH (15:10)
[2016-08-30 17:39] VITALS: BP 106/57; PULSE 74; RESP 20; TEMP 99.6; O2SAT 96
[2016-08-30 19:30] VITALS: BP 111/57; PULSE 75; RESP 18; TEMP 99.1; O2SAT 99
[2016-08-30] MEDS: MESALAMINE ENEMA 4 GM/60 ML BTL RECTAL SCH (20:44)
[2016-08-30 20:58] LABS: MITOGEN MINUS NIL RESULT 6.56 IU/mL (()); NIL RESULT 0.02 IU/mL (()); QUANTIFERON TB GOLD RESULT Negative (Negative)
[2016-08-30] MEDS: CIPROFLOXACIN 400 MG PREMIX 200 ML IV SCH (23:09)
[2016-08-31] VITALS (7 sets, daily range): BP systolic 100–157; BP diastolic 60–83; PULSE 60–88; RESP 18–20; TEMP 97.3–98.6; O2SAT 96–100
[2016-08-31] MEDS: ALPRAZolam 1 MG TAB PO PRN ×2 (01:11→12:23)
[2016-08-31] MEDS: metroNIDAZOLE 500 MG INJ 100 ML IV SCH ×3 (01:12→17:06)
[2016-08-31] MEDS: SODIUM CHLOR 0.9% 1000 ML INJ 1,000 ML IV SCH ×3 (01:13→20:00)
[2016-08-31] MEDS: MORPHINE SULFATE 4 MG/ML INJ IV PUSH PRN ×4 (03:20→18:39)
[2016-08-31] MEDS: INSULIN ASPART SUPPLEMENTAL SCALE SQ SCH ×4 (06:17→21:00)
[2016-08-31] MEDS: INSULIN HUMAN REGULAR 1,000 UNITS/10 ML VIAL SQ SCH ×3 (08:00→17:00)
[2016-08-31] MEDS: INSULIN DETEMIR 100 UNITS/ML VIAL SQ SCH ×2 (08:00→21:08)
[2016-08-31] MEDS: SODIUM CHLORIDE 0.9% FLUSH 10 ML FLUSH IV FLUSH SCH ×2 (09:00→21:00)
[2016-08-31] MEDS: PANTOPRAZOLE SOD 40 MG DELAYED RELEASE TAB PO SCH ×2 (09:16→21:05)
[2016-08-31] MEDS: methylPREDNISolone SOD SUCC 40 MG/1 ML VIAL IV PUSH SCH ×2 (09:16→21:04)
[2016-08-31] MEDS: FLUoxetine HCL 20 MG CAP PO SCH (09:16)
--- NOTE | 2016-08-31 14:35 | HHI.PR ---
Subjective Remarks Patient looks in more pain today, she did have a bowel movement which was liquidy just, denied fever or chills Objective Vitals Vital Signs Date Time Temp Pulse Resp B/P Pulse Ox O2 Delivery O2 Flow Rate FiO2 08/31/16 12:52 98.6 85 20 157/83 99 08/31/16 09:27 18 08/31/16 08:02 97.7 66 20 124/60 96 08/31/16 08:00 60 08/31/16 04:00 97.3 88 20 125/60 100 08/31/16 00:00 97.5 87 18 100/82 97 08/30/16 19:30 99.1 75 18 111/57 99 08/30/16 17:39 99.6 74 20 106/57 96 I/O 08/30/16 08/30/16 08/30/16 08/31/16 08/31/16 08/31/16 07:00 15:00 23:00 07:00 15:00 23:00 Intake Total 100 ml 1591 ml Output Total 1000 ml 850 ml Balance -1000 ml -750 ml 1591 ml IV Total 100 ml 1591 ml Output Urine Total 1000 ml 850 ml # Voids 4 # Bowel Movements 4 0 4 Result Diagram: 08/29/1671808/29/16718 Objective Remarks - GENERAL: This is a well-nourished, well-developed obese patient, in no apparent distress. SKIN: No rashes, warm and dry HEAD: Atraumatic. Normocephalic. EYES: Pupils equal round and reactive. Extraocular motions intact. No scleral icterus. ENT: Nose without bleeding, or drainage, Airway patent. NECK: Trachea midline. Supple CARDIOVASCULAR: Radial cardiac without murmurs, gallops, or rubs. RESPIRATORY: Fair air entry bilaterally. No wheezes, rales, or rhonchi. GASTROINTESTINAL: Abdomen soft, cooler tender to palpation, nondistended. Positive bowel sounds MUSCULOSKELETAL: Extremities without clubbing, cyanosis, or edema. Pedal pulses appreciated NEUROLOGICAL: Awake and alert. Moves all extremity. Normal speech.no focal neurological deficit A/P Assessment and Plan A/P: 60 y/o female with a history of ulcerative colitis came with abdominal pain nausea and hematochezia Sepsis, mostly due to Ulcerative Colitis Exacerbation Status post EGD >>Esophagus normal, Stomach: normal Duodenum: large ulcerations in the distal bulb extending into the descending duodenum. Multiple possibly ischemic looking ulcers. Biopsies taken. Also could be crohns ulcers Ileum normal, at 25cm. Rectum has appearance of ileal pouch Continue iv antibiotic, tapering Solu-Medrol, hepatitis B antigen negative, antibody quantity pending as well as TB, awaiting pathology anticipating biological treatment EGD on 08/30>>Esophagus: copious cheesy material in mid to distal esophagus, biopsy taken possible luis Stomach: antral gastritis Duodenum: large deep ulcer in distal bulb at 12:00 position..Ulcer in descending duodenum appears improved . Looks more like typical PUD now. Atypical chest pain - ACS vs referred GI pain - Serial cardiac enzymes and EKGs to r/o ACS - continuous cardiac telemetry to monitor for cardiac arrhythmias Type 2 diabetes mellitus with hyperglycemia - Levemir , with daily accucheck monitoroing - Accu checks AC and HS with medium dose Novolog coverage - Hypoglycemia protocol Hyponatremia - initial sodium 125 -Monitor BMP Acute kidney injury - IVF hydration - repeat BMP and follow trends in renal indices - avoid nephrotoxins DVT prophylaxis Lovenox 30 mg subq q24h Discharge Planning in am if cleared by GI Hamilton Garibay MD Aug 31, 2016 14:35 - Morphine 2 - 4 mg IV q3h PRN pain - consult gastroenterology - Antibiotics: Metronidazole 500 mg IV q8h, renally adjusted Cipro at 400 mg IV q24h - Solu-Medrol 40 mg IV q6h Atypical chest pain - ACS vs referred GI pain - Serial cardiac enzymes and EKGs to r/o ACS - continuous cardiac telemetry to monitor for cardiac arrhythmias Type 2 diabetes mellitus with hyperglycemia - Levemir 10 units subq q12h - Accu checks AC and HS with medium dose Novolog coverage - Hypoglycemia protocol Hyponatremia - initial sodium 125 - NS at 100 cc/hr - repeat BMP and follow trends in sodium level and replace as indicated Acute kidney injury - BUN 34, Creatinine 1.93, eGFR 26 - IVF hydration - recheck BMP in a.m. - repeat BMP and follow trends in renal indices - avoid nephrotoxins DVT prophylaxis Lovenox 30 mg subq q24h Hamilton Garibay MD Aug 31, 2016 14:35
[2016-08-31] MEDS: FLUCONAZOLE 100 MG PREMIX BAG 50 ML IV SCH (15:05)
[2016-08-31] MEDS: MESALAMINE ENEMA 4 GM/60 ML BTL RECTAL SCH (21:00)
[2016-08-31] MEDS: CIPROFLOXACIN 400 MG PREMIX 200 ML IV SCH (22:54)
[2016-09-01] VITALS: BP 118/65; PULSE 57; RESP 20; TEMP 98.7; O2SAT 99
[2016-09-01] MEDS: metroNIDAZOLE 500 MG INJ 100 ML IV SCH ×3 (00:47→16:50)
[2016-09-01] MEDS: ALPRAZolam 1 MG TAB PO PRN ×3 (02:30→21:38)
[2016-09-01 04:00] VITALS: BP 100/68; PULSE 70; RESP 20; TEMP 98.5; O2SAT 97
[2016-09-01] MEDS: SODIUM CHLOR 0.9% 1000 ML INJ 1,000 ML IV SCH ×2 (06:00→16:48)
[2016-09-01] MEDS: INSULIN ASPART SUPPLEMENTAL SCALE SQ SCH ×4 (06:17→21:52)
[2016-09-01 07:01] LABS: AUTOMATED NEUTROPHIL # 14.9 TH/MM3 (1.8-7.7); BASOPHIL # 0.1 TH/MM3 (0-0.2); BASOPHIL % 0.3 % (0.0-2.0); HEMATOCRIT 29.2 % (35.0-46.0); HEMO FLAGS DIFF FINAL; LYMPH % 3.7 % (9.0-44.0); LYMPHOCYTE # 0.6 TH/MM3 (1.0-4.8); MEAN CELL VOLUME 89.3 FL (80.0-100.0); MEAN CORPUSCULAR HEMOGLOBIN 29.2 PG (27.0-34.0); MEAN CORPUSCULAR HGB CONC 32.7 % (32.0-36.0); MONO % 4.1 % (0.0-8.0); NEUT % 91.9 % (16.0-70.0); PLATELET COUNT 177 TH/MM3 (150-450); RED BLOOD COUNT 3.27 MIL/MM3 (4.00-5.30); RED CELL DISTRIBUTION WIDTH 14.4 % (11.6-17.2); WHITE BLOOD COUNT 16.2 TH/MM3 (4.0-11.0)
[2016-09-01 08:25] VITALS: BP 101/67; PULSE 56; RESP 20; TEMP 97; O2SAT 99
[2016-09-01] MEDS: INSULIN HUMAN REGULAR 1,000 UNITS/10 ML VIAL SQ SCH ×3 (08:47→16:58)
[2016-09-01] MEDS: INSULIN DETEMIR 100 UNITS/ML VIAL SQ SCH ×2 (08:48→21:00)
[2016-09-01] MEDS: PANTOPRAZOLE SOD 40 MG DELAYED RELEASE TAB PO SCH ×2 (08:49→21:00)
[2016-09-01] MEDS: FLUoxetine HCL 20 MG CAP PO SCH (08:49)
[2016-09-01] MEDS: methylPREDNISolone SOD SUCC 40 MG/1 ML VIAL IV PUSH SCH (08:49)
[2016-09-01] MEDS: SODIUM CHLORIDE 0.9% FLUSH 10 ML FLUSH IV FLUSH SCH ×2 (08:49→21:00)
--- NOTE | 2016-09-01 10:16 | HHI.PR ---
Subjective Remarks No acute events overnight. Afebrile, vital signs stable. Patient continues to complain of severe abdominal pain in her epigastric region. She states that she is very nauseated and is able to only eat broth. She has not had a bowel movement yet today. She states she is not ready to go home. The patient is concerned that she is not receiving his months Xanax that she needs, she is tearful during our discussion. Objective Vitals Vital Signs Date Time Temp Pulse Resp B/P Pulse Ox O2 Delivery O2 Flow Rate FiO2 09/01/16 08:25 97.0 56 20 101/67 99 09/01/16 04:00 98.5 70 20 100/68 97 09/01/16 00:00 98.7 57 20 118/65 99 08/31/16 20:00 69 08/31/16 20:00 98.0 82 20 127/64 98 08/31/16 18:45 18 08/31/16 16:38 98.0 66 20 137/72 98 08/31/16 12:52 98.6 85 20 157/83 99 I/O 08/31/16 08/31/16 08/31/16 09/01/16 09/01/16 09/01/16 07:00 15:00 23:00 07:00 15:00 23:00 Intake Total 1591 ml 628 ml 947 ml Balance 1591 ml 628 ml 947 ml Intake Oral 240 ml 120 ml IV Total 1591 ml 388 ml 827 ml # Voids 4 2 2 # Bowel Movements 4 0 0 Result Diagram: 09/01/16 0619 08/29/16 0719 Objective Remarks GENERAL: This is a well-nourished, well-developed obese patient, in no apparent distress. SKIN: No rashes, warm and dry HEAD: Atraumatic. Normocephalic. EYES: Pupils equal round and reactive. Extraocular motions intact. No scleral icterus. ENT: Nose without bleeding, or drainage, Airway patent. NECK: Trachea midline. Supple CARDIOVASCULAR: Radial cardiac without murmurs, gallops, or rubs. RESPIRATORY: Fair air entry bilaterally. No wheezes, rales, or rhonchi. GASTROINTESTINAL: Abdomen soft, finishing machine tender to palpation, nondistended. Positive bowel sounds MUSCULOSKELETAL: Extremities without clubbing, cyanosis, or edema. Pedal pulses appreciated NEUROLOGICAL: Awake and alert. Moves all extremity. Normal speech.no focal neurological deficit A/P Problem List: (1) Hyperglycemia due to type 2 diabetes mellitus ICD Code: E11.65 Status: Acute (2) Abdominal pain ICD Code: R10.9 Status: Acute (3) Hyponatremia ICD Code: E87.1 Status: Acute (4) Ulcerative colitis ICD Code: K51.90 Status: Chronic Assessment and Plan 60 y/o female with a history of ulcerative colitis came with abdominal pain nausea and hematochezia Sepsis, mostly due to Ulcerative Colitis Exacerbation - resolved. Status post EGD >>Esophagus normal, Stomach: normal Duodenum: large ulcerations in the distal bulb extending into the descending duodenum. Multiple possibly ischemic looking ulcers. Biopsies taken. Also could be crohns ulcers Ileum normal, at 25cm. Rectum has appearance of ileal pouch Continue iv antibiotic, DC Solu-Medrol with transition to by mouth prednisone, hepatitis B antigen negative, TB antibody negative, awaiting pathology anticipating biological treatment EGD on 08/30>>Esophagus: copious cheesy material in mid to distal esophagus, biopsy taken possible luis. Patient also, as well. Stomach: antral gastritis Duodenum: large deep ulcer in distal bulb at 12:00 position..Ulcer in descending duodenum appears improved. Looks more like typical PUD now. Atypical chest pain - ACS vs referred GI pain - ACS rule out negative Type 2 diabetes mellitus with hyperglycemia - Levemir , with daily accucheck monitoroing - Accu checks AC and HS with medium dose Novolog coverage - Hypoglycemia protocol Hyponatremia - resolved - initial sodium 125 -Monitor BMP Acute kidney injury - resolved - Hep-Lock IV DVT prophylaxis Lovenox 30 mg subq q24h Discharge Planning To home once pain improves and cleared by GI. Melisa Wadsworth MD R3 Sep 01, 2016 10:16
[2016-09-01 11:37] VITALS: BP 118/59; PULSE 48; RESP 20; TEMP 97.9; O2SAT 99
[2016-09-01] MEDS: MORPHINE SULFATE 4 MG/ML INJ IV PUSH PRN ×4 (11:40→21:37)
[2016-09-01] MEDS: FLUCONAZOLE 100 MG PREMIX BAG 50 ML IV SCH (12:29)
[2016-09-01 15:51] VITALS: BP 116/92; PULSE 55; RESP 20; TEMP 98.2; O2SAT 96
--- NOTE | 2016-09-01 18:10 | HHI.GIFU ---
Subjective Remarks Pt complains of continued epigastric abd pain She is tolerating small amount of clear liquids. (Melisa Dasilva) Objective Vitals I&O Vital Signs Date Time Temp Pulse Resp B/P Pulse Ox O2 Delivery O2 Flow Rate FiO2 09/01/16 15:51 98.2 55 20 116/92 96 09/01/16 15:13 20 09/01/16 11:37 97.9 48 20 118/59 99 09/01/16 08:25 97.0 56 20 101/67 99 09/01/16 04:00 98.5 70 20 100/68 97 09/01/16 00:00 98.7 57 20 118/65 99 08/31/16 20:00 69 08/31/16 20:00 98.0 82 20 127/64 98 I/O 08/31/16 08/31/16 08/31/16 09/01/16 09/01/16 09/01/16 07:00 15:00 23:00 07:00 15:00 23:00 Intake Total 1591 ml 628 ml 947 ml 1218 ml Balance 1591 ml 628 ml 947 ml 1218 ml Intake Oral 240 ml 120 ml 720 ml IV Total 1591 ml 388 ml 827 ml 498 ml # Voids 4 2 2 # Bowel Movements 4 0 0 Laboratory Laboratory Tests Test 09/01/16 06:19 White Blood Count 16.2 Red Blood Count 3.27 Hemoglobin 9.6 Hematocrit 29.2 Mean Corpuscular Volume 89.3 Mean Corpuscular Hemoglobin 29.2 Mean Corpuscular Hemoglobin 32.7 Concent Red Cell Distribution Width 14.4 Platelet Count 177 Mean Platelet Volume 9.6 Neutrophils (%) (Auto) 91.9 Lymphocytes (%) (Auto) 3.7 Monocytes (%) (Auto) 4.1 Eosinophils (%) (Auto) 0.0 Basophils (%) (Auto) 0.3 Neutrophils # (Auto) 14.9 Lymphocytes # (Auto) 0.6 Monocytes # (Auto) 0.7 Eosinophils # (Auto) 0.0 Basophils # (Auto) 0.1 CBC Comment DIFF FINAL Differential Comment Imaging Last Impressions Abdomen/Pelvis CT 08/26/16 0000 Signed Impressions: Service Date/Time: Friday, August 26, 2016 15:12 - CONCLUSION: I see no evidence for mesenteric ischemia. Pee Mcclure MD FACR Abdomen X-Ray 08/24/16 0000 Signed Impressions: Service Date/Time: Wednesday, August 24, 2016 15:27 - CONCLUSION: Negative abdominal series. Angel Lee MD Physical Exam HEENT: Normocephalic; atraumatic; no jaundice. CHEST: CTA CARDIAC: RRR ABDOMEN: Soft, nondistended, epigastric tenderness; bowel sounds are present in all four quadrants. EXTREMITIES: No clubbing, cyanosis, or edema. SKIN: Normal; no rash; no jaundice. PATTERN MAKER: No focal deficits; alert and oriented times three. (Melisa Dasilva) Assessment and Plan Plan ASSESSMENT: - GIB. S/P EGD/Colonoscopy (08/26/16)------> Esophagus normal, Stomach: normal, Duodenum: large ulcerations in the distal bulb extending into the descending duodenum. Multiple possibly ischemic looking ulcers. Biopsies taken. Also could be crohns ulcers. Ileum normal, at 25cm. Rectum has appearance of ileal pouch. Two biopsies taken. Pathology focally ulcerated and necrotic small intestinal mucosal biopsies exhibiting features suggestive of ischemia, distorted small intestinal mucosal biopsies with acute inflammation, clinically J pouch biopsy. Abdomen /Pelvis CTA (08/26/16)-----> I see no evidence for mesenteric ischemia. Solu- Medrol was changed to Prednisone 20mg po BID. Pt has been refusing the Rowasa enemas. Change to Canasa supp HS. Add on Rifaximin 550mg po BID. Cipro/Flagyl. HH 9.9/ 29.8. Pt had repeat EGD (08/31/16) --> copious cheesy material in mid to distal esophagus, biopsy taken possible luis, antral gastritis, and large deep ulcer in distal bulb at 12:00 position. Ulcer in descending duodenum appears improved, looks more like typical PUD now. Cont. Diflucan. Add Carafate liquid 1 gram TIDAC - Anemia, mild. HH 9.6/29.2. Stable. - Duodenal ulcers. CTA negative for mesenteric ischemia. Prednisone BID - Leukocytosis. WBC 16.2, is on steroids. Flagyl. Cipro. - Hx Ulcerative colitis, s/p colectomy in June of 1999 per patient. PLAN: - Diflucan - Add Carafate - Add rifaximin - Change Rowasa enemas to Canasa supp as pt has been refusing the enemas - Diet as tolerated - Cont. Steroids (decreased dosage) - Cont. PPI - Monitor labs - TB Quantiferon Gold, Hepatitis B testing in anticipation of possibly needing biologics - Pt will need continued outpt followup with GI upon discharge. - Supportive care - Further recs as the case develops - The pt was seen and examined by myself and Dr. Gutierrez, this note was written on her behalf. (Melisa Dasilva) Physician Comments seen, examined agree with above (Opal Gutierrez MD) Melisa Dasilva Sep 01, 2016 18:10 Opal Gutierrez MD Sep 01, 2016 20:45
[2016-09-01] MEDS: SUCRALFATE 1 GM/10 ML CUP PO SCH ×2 (18:35→21:38)
[2016-09-01 20:00] VITALS: BP 132/67; PULSE 53; RESP 20; TEMP 98.4; O2SAT 97
[2016-09-01] MEDS: MESALAMINE 1000 MG SUPP RECTAL SCH (21:00)
[2016-09-01] MEDS: CIPROFLOXACIN 400 MG PREMIX 200 ML IV SCH (21:38)
[2016-09-01] MEDS: predniSONE 20 MG TAB PO SCH (21:41)
[2016-09-01] MEDS: RIFAXIMIN 550 MG TAB PO SCH (21:41)
[2016-09-02] VITALS (9 sets, daily range): BP systolic 96–132; BP diastolic 55–77; PULSE 50–68; RESP 17–20; TEMP 97–98.4; O2SAT 95–99
[2016-09-02] MEDS: metroNIDAZOLE 500 MG INJ 100 ML IV SCH ×4 (01:11→23:21)
[2016-09-02] MEDS: MORPHINE SULFATE 4 MG/ML INJ IV PUSH PRN ×3 (02:00→09:52)
[2016-09-02] MEDS: SODIUM CHLOR 0.9% 1000 ML INJ 1,000 ML IV SCH ×3 (02:00→22:00)
[2016-09-02] MEDS: INSULIN ASPART SUPPLEMENTAL SCALE SQ SCH ×4 (06:04→20:58)
[2016-09-02] MEDS: SUCRALFATE 1 GM/10 ML CUP PO SCH ×4 (06:51→20:55)
[2016-09-02] MEDS: INSULIN DETEMIR 100 UNITS/ML VIAL SQ SCH ×2 (08:00→21:00)
[2016-09-02] MEDS: INSULIN HUMAN REGULAR 1,000 UNITS/10 ML VIAL SQ SCH ×3 (08:00→16:53)
[2016-09-02] MEDS: FLUoxetine HCL 20 MG CAP PO SCH (08:27)
[2016-09-02] MEDS: ALPRAZolam 1 MG TAB PO PRN ×2 (08:27→16:55)
[2016-09-02] MEDS: RIFAXIMIN 550 MG TAB PO SCH ×2 (08:28→20:55)
[2016-09-02] MEDS: predniSONE 20 MG TAB PO SCH ×2 (08:28→20:56)
[2016-09-02] MEDS: PANTOPRAZOLE SOD 40 MG DELAYED RELEASE TAB PO SCH ×2 (08:28→20:55)
[2016-09-02] MEDS: SODIUM CHLORIDE 0.9% FLUSH 10 ML FLUSH IV FLUSH SCH ×2 (08:29→20:55)
--- NOTE | 2016-09-02 09:48 | HHI.PR ---
Objective Vitals Result Diagram: 09/01/1661808/29/16 0719 Nicole Matthews MD Sep 02, 2016 09:48 09/02/16 06:10 50 20 125/59 09/02/16 04:00 98.4 62 18 96/55 96 09/02/16 00:00 97.1 50 20 132/69 99 09/01/16 20:00 98.4 53 20 132/67 97 09/01/16 18:54 20 09/01/16 15:51 98.2 55 20 116/92 96 09/01/16 11:37 97.9 48 20 118/59 99 I/O 09/01/16 09/01/16 09/01/16 09/02/16 09/02/16 09/02/16 07:00 15:00 23:00 07:00 15:00 23:00 Intake Total 947 ml 1218 ml 297 ml Balance 947 ml 1218 ml 297 ml Intake Oral 120 ml 720 ml IV Total 827 ml 498 ml 297 ml # Voids 2 1 1 # Bowel Movements 0 1 Result Diagram: 09/01/1661808/29/16 0719 Nicole Matthews MD Sep 02, 2016 09:48 (1) Hyperglycemia due to type 2 diabetes mellitus ICD Code: E11.65 Status: Acute (2) Abdominal pain ICD Code: R10.9 Status: Acute (3) Hyponatremia ICD Code: E87.1 Status: Acute (4) Ulcerative colitis ICD Code: K51.90 Status: Chronic Assessment and Plan 60 y/o female with a history of ulcerative colitis came with abdominal pain nausea and hematochezia Sepsis, mostly due to Ulcerative Colitis Exacerbation - resolved. Status post EGD >>Esophagus normal, Stomach: normal Duodenum: large ulcerations in the distal bulb extending into the descending duodenum. Multiple possibly ischemic looking ulcers. Biopsies taken. Also could be crohns ulcers Ileum normal, at 25cm. Rectum has appearance of ileal pouch Continue iv antibiotic, DC Solu-Medrol with transition to by mouth prednisone, hepatitis B antigen negative, TB antibody negative, awaiting pathology anticipating biological treatment EGD on 08/30>>Esophagus: copious cheesy material in mid to distal esophagus, biopsy taken possible luis. Patient also, as well. Stomach: antral gastritis Duodenum: large deep ulcer in distal bulb at 12:00 position..Ulcer in descending duodenum appears improved. Looks more like typical PUD now. Atypical chest pain - ACS vs referred GI pain - ACS rule out negative Type 2 diabetes mellitus with hyperglycemia - Levemir , with daily accucheck monitoroing - Accu checks AC and HS with medium dose Novolog coverage - Hypoglycemia protocol Hyponatremia - resolved - initial sodium 125 -Monitor BMP Acute kidney injury - resolved - Hep-Lock IV DVT prophylaxis Lovenox 30 mg subq q24h Nicole Matthews MD Sep 02, 2016 09:48
[2016-09-02 12:09] LABS: AUTOMATED NEUTROPHIL # 16.7 TH/MM3 (1.8-7.7); BASOPHIL % 0.1 % (0.0-2.0); HEMATOCRIT 27.3 % (35.0-46.0); HEMO FLAGS DIFF FINAL; LYMPH % 3.8 % (9.0-44.0); LYMPHOCYTE # 0.7 TH/MM3 (1.0-4.8); MEAN CELL VOLUME 89.6 FL (80.0-100.0); MEAN CORPUSCULAR HEMOGLOBIN 28.7 PG (27.0-34.0); MONO % 3.5 % (0.0-8.0); NEUT % 92.6 % (16.0-70.0); PLATELET COUNT 161 TH/MM3 (150-450); RED BLOOD COUNT 3.05 MIL/MM3 (4.00-5.30); RED CELL DISTRIBUTION WIDTH 14.1 % (11.6-17.2)
[2016-09-02 12:38] LABS: BICARBONATE 25.9 MEQ/L (21.0-32.0); POTASSIUM 3.3 MEQ/L (3.5-5.1)
[2016-09-02] MEDS ORDERED: MORPHINE SULFATE 8 MG/ML INJ IV PUSH PRN (13:00)
[2016-09-02] MEDS: MORPHINE SULFATE 8 MG/ML INJ IV PUSH PRN ×3 (13:05→21:26)
[2016-09-02] MEDS: FLUCONAZOLE 100 MG PREMIX BAG 50 ML IV SCH (13:06)
--- NOTE | 2016-09-02 20:21 | HHI.FPPN ---
Subjective Remarks Patient was seen and evaluated this morning. Patient's admission H&P and hospital course were reviewed and discussed with the patient. Patient states that her abdominal pain has improved (10 today). She describes the epigastric pain as a soreness. She also explains that she experiences lower quadrant pains after a BM. Morphine relieves her pains. She has had two BMs today; she describes them as loose and "very dark". She says that she has seen blood in her stool in the recent past but not today. She admits to feeling nauseous but denies vomiting. She also complains of pain with minimal PO intake. She is able to tolerate clears; she has been eating "broth, jell-o and ice cream." Patient denies chest pain. She admits to heart palpitations "every once in awhile." She last experienced the heart palpitations overnight. She states that she has shortness of breath at baseline but hasn't experienced worsening symptoms. She also explains that she has swelling of her legs at baseline. She denies pain in her legs or calves. She has a hx of blood clots; the most recent was 5 years ago. She is on Xarelto at home. Patient ambulates without difficulties in her room. She says that she has more energy now as compared to when she was admitted. She does not feel like she is able to go home at this time though. She becomes emotional when speaking about the possibility of home. (Randa Lao MD R1) Objective Vitals Vital Signs Date Time Temp Pulse Resp B/P Pulse Ox O2 Delivery O2 Flow Rate FiO2 09/02/16 16:00 97.1 68 17 128/59 97 09/02/16 12:00 98.4 68 17 122/77 99 09/02/16 08:38 98.0 50 20 114/56 98 09/02/16 08:05 57 09/02/16 06:10 50 20 125/59 09/02/16 04:00 98.4 62 18 96/55 96 09/02/16 00:00 97.1 50 20 132/69 99 I/O 09/01/16 09/01/16 09/01/16 09/02/16 09/02/16 09/02/16 07:00 15:00 23:00 07:00 15:00 23:00 Intake Total 947 ml 1218 ml 297 ml Balance 947 ml 1218 ml 297 ml Intake Oral 120 ml 720 ml IV Total 827 ml 498 ml 297 ml # Voids 2 1 1 4 # Bowel Movements 0 1 2 (Randa Lao MD R1) Result Diagram: 09/02/16 1131 09/02/16 1131 Imaging Last Impressions Abdomen/Pelvis CT 08/26/16 0000 Signed Impressions: Service Date/Time: Friday, August 26, 2016 15:12 - CONCLUSION: I see no evidence for mesenteric ischemia. Pee Mcclure MD FACR Abdomen X-Ray 08/24/16 0000 Signed Impressions: Service Date/Time: Wednesday, August 24, 2016 15:27 - CONCLUSION: Negative abdominal series. Angel Lee MD Objective Remarks GENERAL: This is a well-nourished, well-developed obese patient, in no apparent distress. SKIN: No rashes, warm and dry. HEAD: Atraumatic. Normocephalic. EYES: Pupils equal round and reactive. No scleral icterus. ENT: Nose without bleeding, or drainage, Airway patent. NECK: Trachea midline. CARDIOVASCULAR: 2/5 FREYA murmur; irregular rhythm. RESPIRATORY: Clear to auscultation. No wheezes, rales, or rhonchi. GASTROINTESTINAL: Abdomen is diffusely tender, nondistended. Positive bowel sounds. MUSCULOSKELETAL: Extremities without clubbing, cyanosis, or edema. NEUROLOGICAL: Awake and alert.Normal speech. No focal neurological deficit. Moves all extremity. Procedures Colonoscopy Endoscopy Medications and IVs Current Medications Medications (Trade) Dose Ordered Sig/Ani Route Start Time Stop Time Status Last Admin (NS 1000 ml Inj) 1,000 ml @ 100 mls/hr Q10H IV 08/23/16 22:00 09/02/16 11:46 (NS Flush) 2 ml UNSCH PRN IV FLUSH 08/23/16 22:00 (NS Flush) 2 ml BID IV FLUSH 08/24/16 09:00 09/02/16 08:29 (Tylenol) 650 mg Q4H PRN PO 08/23/16 22:00 08/31/16 21:08 (Zofran Inj) 4 mg Q6H PRN IVP 08/23/16 22:00 08/28/16 23:59 (Lovenox Inj) 30 mg Q24H SQ 08/23/16 23:00 Hold 08/24/16 22:22 (Milk Of Magnesia Liq) 30 ml Q12H PRN PO 08/23/16 22:00 (Senokot) 17.2 mg Q12H PRN PO 08/23/16 22:00 (Dulcolax Supp) 10 mg DAILY PRN RECTAL 08/23/16 22:00 Lactulose 30 ml 30 ml DAILY PRN PO 08/23/16 22:00 Ciprofloxacin/ Dextrose 200 ml @ 200 mls/hr Q24H IV 08/23/16 23:00 09/01/16 21:38 (Flagyl 500 Mg Inj) 100 ml @ 100 mls/hr Q8H IV 08/24/16 00:00 09/02/16 16:45 (D50w (Vial) Inj) 50 ml UNSCH PRN IV 08/23/16 22:15 (Glucagon Inj) 1 mg UNSCH PRN OTHER 08/23/16 22:15 (Xanax) 1 mg Q8H PRN PO 08/23/16 22:15 09/02/16 16:55 (PROzac) 20 mg DAILY PO 08/25/16 12:15 09/02/16 08:27 (Catapres) 0.1 mg Q6H PRN PO 08/25/16 12:45 (NovoLIN R INJ) 2 units TIDAC SQ 08/27/16 17:00 09/02/16 16:53 (Protonix) 40 mg Q12HR PO 08/27/16 14:00 09/02/16 08:28 (Levemir Inj) 13 units DAILYAC SQ 08/29/16 08:00 09/02/16 08:00 Insulin Detemir 9 units 9 units HS SQ 08/28/16 21:00 09/01/16 21:00 (Diflucan 100 Mg Premix Bag) 50 ml @ 50 mls/hr Q24H IV 08/30/16 13:00 09/02/16 13:06 (Deltasone) 20 mg BID PO 09/01/16 21:00 09/02/16 08:28 (Carafate Liq) 1 gm ACHS PO 09/01/16 18:00 09/02/16 16:43 (Canasa Supp) 1,000 mg HS RECTAL 09/01/16 21:00 09/01/16 21:00 (Xifaxan) 550 mg BID PO 09/01/16 21:00 09/02/16 08:28 (Morphine Inj) 2 mg Q3H PRN IV PUSH 09/02/16 13:00 (Morphine Inj) 4 mg Q3H PRN IV PUSH 09/02/16 13:00 09/02/16 16:44 (Randa Lao MD R1) Urinary Catheter: No (Randa Lao MD R1) Vascular Central Line Catheter: No (Randa Lao MD R1) A/P Assessment and Plan Patient is a 60 year old female who presented to ED complaining of abdominal pain. After a prolonged hospital stay, patient care responsibilities were transferred to the family medicine team on 09/02/16. Patient has hx of UC and new onset PUD. Discharge Planning Pending GI clearance. (Randa Lao MD R1) Attending Attestation The exam, history, and the medical decision-making described in the above note were completed with the assistance of the resident physician. I reviewed and agree with the findings presented. I attest that I had a [id number] encounter with the patient on the same day, and personally performed and documented my assessment and findings in the medical record. (Marianne Mejía MD) Problem List: (1) Inflammatory bowel disease Status: Acute Plan: Patient reports hx of Ulcerative Colitis s/p colectomy in June 1999. Duodenal ulcer found on 08/26 was initially thought to be Crohn's ulcer but on repeat EGD looked like typical PUD. Hep B and TB work up negative - ordered in anticipation of requiring biologics for management of chronic disease. GI Plan and recommendations: * Diet as tolerated. * Add rifaximin. * Change Rowasa enemas to Canasa supp as pt has been refusing the enemas. * Cont. Steroids (decreased dosage). * Monitor labs. (2) Duodenal ulcer Status: Acute Plan: Duodenal ulcer first reported in EGD/Colonoscopy report on 08/26/16. Evidence of improvements seen during EGD on 08/30/16. GI Plan and recommendations: * Diet as tolerated. * Add Carafate. * Cont. Steroids (decreased dosage). * Cont. PPI. (3) Esophageal candidiasis Status: Acute Plan: EGD on 08/30 found copious cheesy material in mid to distal esophagus; biopsy taken possible luis. Patient started on Diflucan. (4) Leukocytosis Status: Acute Plan: Etiology: * Steroid use * Infection: vitals are within normal limits. WBC normal at admission (9.3). WBC elevated. Monitor closely. 17.1 -> 20.3 -> 16.6 -> 16.2 -> 18. Started on Flagyl and Cipro. (5) Anemia Status: Acute Plan: Hgb/Hct normal at admission. Hgb/Hct abnormal. Monitor closely. Hgb 11.7 -> 11.5 -> 9.9 -> 9.6 -> 8.7L Hct 36.4 -> 35.1 -> 29.8 -> 29.2 -> 27.3L (6) Diabetes Status: Acute Plan: Patient is on 13 units AC and 9 units HS of Levemir. She also received 8 additional units over the past 24 hr as per NovoLOG supplemental scale. (7) Depression Status: Chronic Plan: Fluoxetine 20mg daily PO Alprazolam 1mg q8hr PRN PO; x4 over last 24hr; last given 7.10 at 16:55. (8) Fluid, Electrolyte, Nutrition and Prophylaxis Status: Acute Plan: Fluid: * Tolerating PO. Electrolyte: * Replete if necessary. * K 3.3 on 09/02. Consider supplementation. * Ca 7.9 on 09/02. Consider supplementation. Nutrition: * Tolerating clears DVT prophylaxis: * Lovenox held pre-procedure. GI prophylaxis: * Protonix (Randa Lao MD R1) Problem Qualifiers (1) Leukocytosis: Qualified Code: D72.829 - Leukocytosis, unspecified type (2) Anemia: Qualified Code: D64.9 - Anemia, unspecified type Randa Lao MD R1 Sep 02, 2016 20:21 Marianne Mejía MD Sep 03, 2016 08:37
[2016-09-02] MEDS: MESALAMINE 1000 MG SUPP RECTAL SCH (20:58)
[2016-09-02] MEDS: CIPROFLOXACIN 400 MG PREMIX 200 ML IV SCH (23:21)
[2016-09-03] VITALS (8 sets, daily range): BP systolic 112–163; BP diastolic 50–70; PULSE 42–65; RESP 17–20; TEMP 96.9–97.9; O2SAT 95–100
[2016-09-03] MEDS: ALPRAZolam 1 MG TAB PO PRN ×2 (01:53→22:57)
[2016-09-03] MEDS: SUCRALFATE 1 GM/10 ML CUP PO SCH ×4 (06:03→21:23)
[2016-09-03] MEDS: MORPHINE SULFATE 8 MG/ML INJ IV PUSH PRN ×5 (06:03→21:37)
[2016-09-03] MEDS: INSULIN ASPART SUPPLEMENTAL SCALE SQ SCH ×4 (06:05→21:00)
[2016-09-03 07:56] LABS: BASOPHIL % 0.2 % (0.0-2.0); EOSINOPHIL % 0.1 % (0.0-4.0); HEMATOCRIT 26.3 % (35.0-46.0); HEMO FLAGS DIFF FINAL; LYMPH % 6.2 % (9.0-44.0); LYMPHOCYTE # 0.7 TH/MM3 (1.0-4.8); MEAN CELL VOLUME 88.8 FL (80.0-100.0); MEAN CORPUSCULAR HEMOGLOBIN 29.2 PG (27.0-34.0); MEAN CORPUSCULAR HGB CONC 32.9 % (32.0-36.0); MONO % 3.9 % (0.0-8.0); NEUT % 89.6 % (16.0-70.0); PLATELET COUNT 157 TH/MM3 (150-450); RED BLOOD COUNT 2.96 MIL/MM3 (4.00-5.30); RED CELL DISTRIBUTION WIDTH 14.9 % (11.6-17.2); WHITE BLOOD COUNT 11.1 TH/MM3 (4.0-11.0)
[2016-09-03] MEDS: SODIUM CHLOR 0.9% 1000 ML INJ 1,000 ML IV SCH ×2 (08:00→17:00)
[2016-09-03] MEDS: INSULIN DETEMIR 100 UNITS/ML VIAL SQ SCH ×2 (08:00→21:00)
[2016-09-03 08:27] LABS: ALT (GPT) 10 U/L (10-53); ANION GAP 5 MEQ/L (5-15); AST (GOT) 15 U/L (15-37); BICARBONATE 27.3 MEQ/L (21.0-32.0); BLOOD UREA NITROGEN 13 MG/DL (7-18); CHLORIDE 107 MEQ/L (98-107); GLOMERULAR FILTRATION RATE 69 ML/MIN (>89); POTASSIUM 3.7 MEQ/L (3.5-5.1); SODIUM (NA) 139 MEQ/L (136-145)
[2016-09-03 08:29] LABS: ALKALINE PHOSPHATASE 105 U/L (45-117); TOTAL BILIRUBIN ADULT 0.2 MG/DL (0.2-1.0)
[2016-09-03] MEDS: metroNIDAZOLE 500 MG INJ 100 ML IV SCH ×3 (08:52→22:58)
[2016-09-03] MEDS: FLUoxetine HCL 20 MG CAP PO SCH (08:53)
[2016-09-03] MEDS: RIFAXIMIN 550 MG TAB PO SCH ×2 (08:53→21:23)
[2016-09-03] MEDS: SODIUM CHLORIDE 0.9% FLUSH 10 ML FLUSH IV FLUSH SCH ×2 (08:53→21:00)
[2016-09-03] MEDS: PANTOPRAZOLE SOD 40 MG DELAYED RELEASE TAB PO SCH ×2 (08:53→21:23)
[2016-09-03] MEDS: INSULIN HUMAN REGULAR 1,000 UNITS/10 ML VIAL SQ SCH ×3 (08:55→16:35)
--- NOTE | 2016-09-03 11:41 | HHI.FPPN ---
Subjective Remarks Patient was seen and evaluated this morning. She was sitting up in a chair, drinking coffee. She says she feels better and has more energy than yesterday. Her abdominal pain persists but is less severe. She admits to walking in the [place] herself yesterday afternoon. She says she got a little short of breath but overall felt good walking around. Patient states that she has had BM x2 this morning; she describes the stool as loose but "very dark." She denies any red blood in the stool. She denies chest pain, heart palpitations, shortness of breath (other than noted above), fever/ chills, nausea and vomiting. (Randa Lao MD R1) Objective Vitals Vital Signs Date Time Temp Pulse Resp B/P Pulse Ox O2 Delivery O2 Flow Rate FiO2 09/03/16 09:25 42 09/03/16 08:00 97.1 51 18 163/70 98 09/03/16 04:00 96.9 44 20 124/63 95 09/03/16 00:00 97.5 65 20 115/50 96 09/02/16 20:59 51 09/02/16 20:00 97.0 65 20 115/56 95 09/02/16 16:00 97.1 68 17 128/59 97 09/02/16 12:00 98.4 68 17 122/77 99 I/O 09/02/16 09/02/16 09/02/16 09/03/16 09/03/16 09/03/16 07:00 15:00 23:00 07:00 15:00 23:00 Intake Total 297 ml 240 ml Balance 297 ml 240 ml Intake Oral 240 ml IV Total 297 ml # Voids 1 4 3 # Bowel Movements 1 2 2 (Randa Lao MD R1) Result Diagram: 09/03/16 0700 09/03/16 0700 Imaging Last Impressions Abdomen/Pelvis CT 08/26/16 0000 Signed Impressions: Service Date/Time: Friday, August 26, 2016 15:12 - CONCLUSION: I see no evidence for mesenteric ischemia. Pee Mcclure MD FACR Abdomen X-Ray 08/24/16 0000 Signed Impressions: Service Date/Time: Wednesday, August 24, 2016 15:27 - CONCLUSION: Negative abdominal series. Angel Lee MD Objective Remarks GENERAL: This is a well-nourished, well-developed obese patient, in no apparent distress. SKIN: No rashes, warm and dry. HEAD: Atraumatic. Normocephalic. EYES: Pupils equal round and reactive. No scleral icterus. ENT: Nose without bleeding, or drainage, Airway patent. NECK: Trachea midline. CARDIOVASCULAR: Bradycardic. Regular rhythm. No murmur appreciated today. RESPIRATORY: Clear to auscultation. No wheezes, rales, or rhonchi. GASTROINTESTINAL: Abdomen is diffusely tender, nondistended. Positive bowel sounds. MUSCULOSKELETAL: Extremities without clubbing, cyanosis, or edema. NEUROLOGICAL: Awake and alert.Normal speech. No focal neurological deficit. Moves all extremity. Procedures Colonoscopy Endoscopy Medications and IVs Current Medications Medications (Trade) Dose Ordered Sig/Ani Route Start Time Stop Time Status Last Admin (NS 1000 ml Inj) 1,000 ml @ 100 mls/hr Q10H IV 08/23/16 22:00 09/02/16 22:00 (NS Flush) 2 ml UNSCH PRN IV FLUSH 08/23/16 22:00 (NS Flush) 2 ml BID IV FLUSH 08/24/16 09:00 09/02/16 08:29 (Tylenol) 650 mg Q4H PRN PO 08/23/16 22:00 08/31/16 21:08 (Zofran Inj) 4 mg Q6H PRN IVP 08/23/16 22:00 08/28/16 23:59 (Lovenox Inj) 30 mg Q24H SQ 08/23/16 23:00 Hold 08/24/16 22:22 (Milk Of Magnesia Liq) 30 ml Q12H PRN PO 08/23/16 22:00 (Senokot) 17.2 mg Q12H PRN PO 08/23/16 22:00 (Dulcolax Supp) 10 mg DAILY PRN RECTAL 08/23/16 22:00 Lactulose 30 ml 30 ml DAILY PRN PO 08/23/16 22:00 Ciprofloxacin/ Dextrose 200 ml @ 200 mls/hr Q24H IV 08/23/16 23:00 09/02/16 23:21 (Flagyl 500 Mg Inj) 100 ml @ 100 mls/hr Q8H IV 08/24/16 00:00 09/03/16 08:52 (D50w (Vial) Inj) 50 ml UNSCH PRN IV 08/23/16 22:15 (Glucagon Inj) 1 mg UNSCH PRN OTHER 08/23/16 22:15 (Xanax) 1 mg Q8H PRN PO 08/23/16 22:15 09/03/16 01:53 (PROzac) 20 mg DAILY PO 08/25/16 12:15 09/03/16 08:53 (Catapres) 0.1 mg Q6H PRN PO 08/25/16 12:45 (NovoLIN R INJ) 2 units TIDAC SQ 08/27/16 17:00 09/03/16 08:55 (Protonix) 40 mg Q12HR PO 08/27/16 14:00 09/03/16 08:53 (Levemir Inj) 13 units DAILYAC SQ 08/29/16 08:00 09/03/16 08:00 Insulin Detemir 9 units 9 units HS SQ 08/28/16 21:00 09/01/16 21:00 (Diflucan 100 Mg Premix Bag) 50 ml @ 50 mls/hr Q24H IV 08/30/16 13:00 09/02/16 13:06 (Deltasone) 20 mg BID PO 09/01/16 21:00 Hold 09/02/16 20:56 (Carafate Liq) 1 gm ACHS PO 09/01/16 18:00 09/03/16 06:03 (Canasa Supp) 1,000 mg HS RECTAL 09/01/16 21:00 09/01/16 21:00 (Xifaxan) 550 mg BID PO 09/01/16 21:00 09/03/16 08:53 (Morphine Inj) 2 mg Q3H PRN IV PUSH 09/02/16 13:00 (Morphine Inj) 4 mg Q3H PRN IV PUSH 09/02/16 13:00 09/02/16 21:26 (Lovenox Inj) 30 mg Q24H SQ 09/03/16 11:00 (Randa Lao MD R1) Urinary Catheter: No (Randa Lao MD R1) Vascular Central Line Catheter: No (Randa Lao MD R1) A/P Assessment and Plan Patient is a 60 year old female who presented to ED complaining of abdominal pain. After a prolonged hospital stay, patient care responsibilities were transferred to the family medicine team on 09/02/16. Patient has hx of UC and new onset PUD. Discharge Planning Pending GI clearance. (Randa Lao MD R1) Attending Attestation The exam, history, and the medical decision-making described in the above note were completed with the assistance of the resident physician. I reviewed and agree with the findings presented. I attest that I had a [id number] encounter with the patient on the same day, and personally performed and documented my assessment and findings in the medical record. This patient is markedly improved today on her exam and in her symptom control. She is still requiring IV pain medication though for pain. Would anticipate d/c in 24-48 hours once she is no longer requiring IV pain control (Marianne Mejía MD) Problem List: (1) Inflammatory bowel disease Status: Acute Plan: Patient reports hx of Ulcerative Colitis s/p colectomy in June 1999. Duodenal ulcer found on 08/26/16 was initially thought to be Crohn's ulcer but on repeat EGD looked like typical PUD. Hep B and TB work up negative - ordered in anticipation of requiring biologics for management of chronic disease. GI Plan and recommendations: * Diet as tolerated. * Continue Rifaximin. * Continue Prednisone. Consider decreased dose/taper. Prednisone AM dose held on 09/03/16 after patient accidentally received Decadron - nurse notified family medicine team immediately. * Canasa supp - Refused 09/02/16. * Monitor labs. (2) Duodenal ulcer Status: Acute Plan: Duodenal ulcer first reported in EGD/Colonoscopy report on 08/26/16. Evidence of improvement seen during EGD on 08/30/16. GI Plan and recommendations: * Diet as tolerated. * Continue Sucralfate. * Continue Prednisone. Consider decreased dose/taper. Prednisone AM dose held on 09/03/16 after patient accidentally received Decadron - nurse notified family medicine team immediately. * Continue PPI. (3) Esophageal candidiasis Status: Acute Plan: EGD on 08/30 found copious cheesy material in mid to distal esophagus; biopsy taken possible luis. Patient started on Diflucan. (4) Bradycardia Status: Acute Plan: Bradycardia noticed throughout hospital stay. EKG confirmed Sinus Bradycardia. Echo pending. (5) Leukocytosis Status: Acute Plan: Etiology: * Steroid use * Infection: vitals are within normal limits. WBC normal at admission (9.3). WBC elevated. Monitor closely. 17.1 -> 20.3 -> 16.6 -> 16.2 -> 18 ->11.1. Started on Flagyl and Cipro. (6) Anemia Status: Acute Plan: Hgb/Hct normal at admission. Hgb/Hct abnormal. Monitor closely. Hgb 11.7 -> 11.5 -> 9.9 -> 9.6 -> 8.7 -> 8.6 Hct 36.4 -> 35.1 -> 29.8 -> 29.2 -> 27.3 -> 26.3 (7) Diabetes Status: Acute Plan: Patient is on 13 units AC and 9 units HS of Levemir. She also received 13 additional units over the past 24 hr as per NovoLOG supplemental scale. (8) Depression Status: Chronic Plan: Fluoxetine 20mg daily PO Alprazolam 1mg q8hr PRN PO; x4 over last 24hr; last given 7.10 at 16:55. (9) Fluid, Electrolyte, Nutrition and Prophylaxis Status: Acute Plan: Fluid: * Tolerating PO. Electrolyte: * Replete if necessary. * K 3.7 on 09/03. Monitor. * Ca 7.6 on 09/03. Monitor. Nutrition: * Tolerating clears DVT prophylaxis: * Lovenox restarted. GI prophylaxis: * Protonix (Randa Lao MD R1) Problem Qualifiers (1) Leukocytosis: Qualified Code: D72.829 - Leukocytosis, unspecified type (2) Anemia: Qualified Code: D64.9 - Anemia, unspecified type Randa Lao MD R1 Sep 03, 2016 11:41 Marianne Mejía MD Sep 04, 2016 12:10
[2016-09-03] MEDS: ENOXAPARIN SODIUM 30 MG/0.3 ML SYRINGE SQ SCH (11:46)
[2016-09-03] MEDS: FLUCONAZOLE 100 MG PREMIX BAG 50 ML IV SCH (11:47)
--- NOTE | 2016-09-03 13:23 | HHI.GIFU ---
Subjective Remarks Pt resting in bed, became tearful saying she is depressed and can't take care of herself b/c she is week. Says her prozac was restarted few days ago. Her abd pain is improved, she is having 3 BM daily which is improvement. Objective Vitals I&O Vital Signs Date Time Temp Pulse Resp B/P Pulse Ox O2 Delivery O2 Flow Rate FiO2 09/03/16 12:29 97.5 57 20 112/59 100 09/03/16 09:25 42 09/03/16 08:00 97.1 51 18 163/70 98 09/03/16 04:00 96.9 44 20 124/63 95 09/03/16 00:00 97.5 65 20 115/50 96 09/02/16 20:59 51 09/02/16 20:00 97.0 65 20 115/56 95 09/02/16 16:00 97.1 68 17 128/59 97 I/O 09/02/16 09/02/16 09/02/16 09/03/16 09/03/16 09/03/16 07:00 15:00 23:00 07:00 15:00 23:00 Intake Total 297 ml 240 ml Balance 297 ml 240 ml Intake Oral 240 ml IV Total 297 ml # Voids 1 4 3 # Bowel Movements 1 2 2 Laboratory Laboratory Tests Test 09/03/16 07:00 White Blood Count 11.1 Red Blood Count 2.96 Hemoglobin 8.6 Hematocrit 26.3 Mean Corpuscular Volume 88.8 Mean Corpuscular Hemoglobin 29.2 Mean Corpuscular Hemoglobin 32.9 Concent Red Cell Distribution Width 14.9 Platelet Count 157 Mean Platelet Volume 8.7 Neutrophils (%) (Auto) 89.6 Lymphocytes (%) (Auto) 6.2 Monocytes (%) (Auto) 3.9 Eosinophils (%) (Auto) 0.1 Basophils (%) (Auto) 0.2 Neutrophils # (Auto) 10.0 Lymphocytes # (Auto) 0.7 Monocytes # (Auto) 0.4 Eosinophils # (Auto) 0.0 Basophils # (Auto) 0.0 CBC Comment DIFF FINAL Differential Comment Sodium Level 139 Potassium Level 3.7 Chloride Level 107 Carbon Dioxide Level 27.3 Anion Gap 5 Blood Urea Nitrogen 13 Creatinine 0.84 Estimat Glomerular Filtration 69 Rate Random Glucose 218 Calcium Level 7.6 Total Bilirubin 0.2 Aspartate Amino Transf 15 (AST/SGOT) Alanine Aminotransferase 10 (ALT/SGPT) Alkaline Phosphatase 105 Total Protein 5.1 Albumin 1.7 Imaging Last Impressions Abdomen/Pelvis CT 08/26/16 0000 Signed Impressions: Service Date/Time: Friday, August 26, 2016 15:12 - CONCLUSION: I see no evidence for mesenteric ischemia. Pee Mcclure MD FACR Abdomen X-Ray 08/24/16 0000 Signed Impressions: Service Date/Time: Wednesday, August 24, 2016 15:27 - CONCLUSION: Negative abdominal series. Angel Lee MD Physical Exam HEENT: Normocephalic; atraumatic; no jaundice. CHEST: CTA CARDIAC: RRR ABDOMEN: Soft, nondistended, nontender; bowel sounds are present in all four quadrants. EXTREMITIES: No clubbing, cyanosis, or edema. SKIN: Normal; no rash; no jaundice. GEOLOGICAL SURVEY FIELD ASSISTANT: No focal deficits; alert and oriented times three. Assessment and Plan Plan ASSESSMENT: - GIB. S/P EGD/Colonoscopy (08/26/16)------> Esophagus normal, Stomach: normal, Duodenum: large ulcerations in the distal bulb extending into the descending duodenum. Multiple possibly ischemic looking ulcers. Biopsies taken. Also could be crohns ulcers. Ileum normal, at 25cm. Rectum has appearance of ileal pouch. Two biopsies taken. Pathology focally ulcerated and necrotic small intestinal mucosal biopsies exhibiting features suggestive of ischemia, distorted small intestinal mucosal biopsies with acute inflammation, clinically J pouch biopsy. Abdomen /Pelvis CTA (08/26/16)-----> I see no evidence for mesenteric ischemia. Solu- Medrol was changed to Prednisone 20mg po BID. Pt has been refusing the Rowasa enemas. Change to Canasa supp HS. Add on Rifaximin 550mg po BID. Cipro/Flagyl. HH 9.9/ 29.8. Pt had repeat EGD (08/31/16) --> copious cheesy material in mid to distal esophagus, biopsy taken possible luis, antral gastritis, and large deep ulcer in distal bulb at 12:00 position. Ulcer in descending duodenum appears improved, looks more like typical PUD now. Cont. Diflucan. Add Carafate liquid 1 gram TIDAC - Anemia, mild. HH 8.6/26.3 - Duodenal ulcers. CTA negative for mesenteric ischemia. Prednisone BID - Leukocytosis. WBC 16.2, is on steroids. Flagyl. Cipro. - Hx Ulcerative colitis, s/p colectomy in June of 1999 per patient. PLAN: - Diflucan - continue carafate - continue rifaximin - Diet as tolerated - Taper prednisone 10mg for 1wk, 5 mg for 1 wk - Cont. PPI BID - Monitor labs - Supportive care - f/u with GI on d/c - GI will sign off. - The pt was seen and examined by myself and , this note was written on his behalf. Sandra Valerio [facility] Sep 03, 2016 13:23
[2016-09-03] MEDS: MESALAMINE 1000 MG SUPP RECTAL SCH (21:00)
[2016-09-03] MEDS: predniSONE 10 MG TAB PO SCH (21:23)
[2016-09-03] MEDS: CIPROFLOXACIN 400 MG PREMIX 200 ML IV SCH (22:57)
[2016-09-04 00:20] VITALS: PULSE 46
[2016-09-04 00:21] VITALS: BP 125/58; PULSE 57; RESP 17; TEMP 97.8; O2SAT 99
[2016-09-04] MEDS: SODIUM CHLOR 0.9% 1000 ML INJ 1,000 ML IV SCH (01:46)
[2016-09-04] MEDS: MORPHINE SULFATE 8 MG/ML INJ IV PUSH PRN ×2 (01:52→05:10)
[2016-09-04 04:59] VITALS: BP 120/58; PULSE 66; RESP 17; TEMP 98; O2SAT 99
[2016-09-04] MEDS: SUCRALFATE 1 GM/10 ML CUP PO SCH ×3 (05:09→16:00)
[2016-09-04] MEDS: INSULIN ASPART SUPPLEMENTAL SCALE SQ SCH ×3 (06:15→16:00)
[2016-09-04 07:56] VITALS: BP 134/65; PULSE 52; RESP 20; TEMP 98.4; O2SAT 99
[2016-09-04] MEDS ORDERED: ACETAMINOPHEN 325 MG TAB PO PRN (08:15)
[2016-09-04] MEDS ORDERED: ACETAMINOPHEN/HYDROcodone 325 MG/10 MG TAB PO PRN (08:15)
[2016-09-04] MEDS ORDERED: ACETAMINOPHEN/HYDROcodone 325 MG/5 MG TAB PO PRN (08:15)
[2016-09-04] MEDS: FLUoxetine HCL 20 MG CAP PO SCH (08:31)
[2016-09-04] MEDS: SODIUM CHLORIDE 0.9% FLUSH 10 ML FLUSH IV FLUSH SCH (08:31)
[2016-09-04] MEDS: PANTOPRAZOLE SOD 40 MG DELAYED RELEASE TAB PO SCH (08:31)
[2016-09-04] MEDS: RIFAXIMIN 550 MG TAB PO SCH (08:31)
[2016-09-04] MEDS: predniSONE 10 MG TAB PO SCH (08:31)
[2016-09-04] MEDS: metroNIDAZOLE 500 MG INJ 100 ML IV SCH ×2 (08:31→16:00)
[2016-09-04] MEDS: INSULIN HUMAN REGULAR 1,000 UNITS/10 ML VIAL SQ SCH ×3 (08:36→17:00)
[2016-09-04] MEDS: INSULIN DETEMIR 100 UNITS/ML VIAL SQ SCH (08:37)
[2016-09-04] MEDS: ALPRAZolam 1 MG TAB PO PRN ×2 (08:44→17:19)
[2016-09-04 11:28] LABS: BICARBONATE 26.5 MEQ/L (21.0-32.0); POTASSIUM 3.6 MEQ/L (3.5-5.1)
[2016-09-04] MEDS: ENOXAPARIN SODIUM 30 MG/0.3 ML SYRINGE SQ SCH (11:37)
[2016-09-04 12:13] VITALS: BP 126/66; PULSE 50; RESP 20; TEMP 96.8; O2SAT 96
[2016-09-04] MEDS: FLUCONAZOLE 100 MG PREMIX BAG 50 ML IV SCH (13:37)
--- NOTE | 2016-09-04 15:07 | HHI.FPPN ---
Subjective Remarks Patient was seen and evaluated. She was sitting up in her bed. She says she continues to feel better. Her abdominal pain is minimal at this point. She had three bowel movements this morning; she describes the stool as loose but "very dark." She denies any red blood in the stool. She denies chest pain, heart palpitations, shortness of breath (other than baseline), fever/chills, nausea and vomiting. She endorses walking the halls yesterday. She admits to feeling depressed, especially at night. She denies suicidal ideations at this time. She does not currently have a psychiatrist but understands the importance of establishing care as soon as possible. (Randa Lao MD R1) Objective Vitals Vital Signs Date Time Temp Pulse Resp B/P Pulse Ox O2 Delivery O2 Flow Rate FiO2 09/04/16 12:13 96.8 50 20 126/66 96 09/04/16 07:56 98.4 52 20 134/65 99 09/04/16 04:59 98.0 66 17 120/58 99 09/04/16 00:21 97.8 57 17 125/58 99 09/04/16 00:20 46 09/03/16 21:39 55 09/03/16 20:03 97.9 49 17 129/59 100 09/03/16 16:00 97.8 59 18 119/57 95 I/O 09/03/16 09/03/16 09/03/16 09/04/16 09/04/16 09/04/16 07:00 15:00 23:00 07:00 15:00 23:00 Intake Total 1405 ml 120 ml Balance 1405 ml 120 ml Intake Oral 360 ml 120 ml IV Total 1045 ml # Voids 3 4 7 3 # Bowel Movements 2 2 1 4 (Randa Lao MD R1) Result Diagram: 09/03/16 0700 09/04/16 1043 Imaging Last Impressions Abdomen/Pelvis CT 08/26/16 0000 Signed Impressions: Service Date/Time: Friday, August 26, 2016 15:12 - CONCLUSION: I see no evidence for mesenteric ischemia. Pee Mcclure MD FACR Abdomen X-Ray 08/24/16 0000 Signed Impressions: Service Date/Time: Wednesday, August 24, 2016 15:27 - CONCLUSION: Negative abdominal series. Angel Lee MD Objective Remarks GENERAL: This is a well-nourished, well-developed obese patient, in no apparent distress. SKIN: No rashes, warm and dry. HEAD: Atraumatic. Normocephalic. EYES: Pupils equal round and reactive. No scleral icterus. ENT: Nose without bleeding, or drainage, Airway patent. NECK: Trachea midline. CARDIOVASCULAR: Bradycardic. Regular rhythm. No murmur appreciated today. RESPIRATORY: Clear to auscultation. No wheezes, rales, or rhonchi. GASTROINTESTINAL: Abdomen is nontender, nondistended. Positive bowel sounds. MUSCULOSKELETAL: Extremities without clubbing, cyanosis, or edema. NEUROLOGICAL: Awake and alert.Normal speech. No focal neurological deficit. Moves all extremity. Medications and IVs Current Medications Medications (Trade) Dose Ordered Sig/Ani Route Start Time Stop Time Status Last Admin (NS Flush) 2 ml UNSCH PRN IV FLUSH 08/23/16 22:00 (NS Flush) 2 ml BID IV FLUSH 08/24/16 09:00 09/04/16 08:31 (Tylenol) 650 mg Q4H PRN PO 08/23/16 22:00 08/31/16 21:08 (Zofran Inj) 4 mg Q6H PRN IVP 08/23/16 22:00 08/28/16 23:59 (Lovenox Inj) 30 mg Q24H SQ 08/23/16 23:00 Hold 08/24/16 22:22 (Milk Of Magnesia Liq) 30 ml Q12H PRN PO 08/23/16 22:00 (Senokot) 17.2 mg Q12H PRN PO 08/23/16 22:00 (Dulcolax Supp) 10 mg DAILY PRN RECTAL 08/23/16 22:00 Lactulose 30 ml 30 ml DAILY PRN PO 08/23/16 22:00 Ciprofloxacin/ Dextrose 200 ml @ 200 mls/hr Q24H IV 08/23/16 23:00 09/03/16 22:57 (Flagyl 500 Mg Inj) 100 ml @ 100 mls/hr Q8H IV 08/24/16 00:00 09/04/16 08:31 (D50w (Vial) Inj) 50 ml UNSCH PRN IV 08/23/16 22:15 (Glucagon Inj) 1 mg UNSCH PRN OTHER 08/23/16 22:15 (Xanax) 1 mg Q8H PRN PO 08/23/16 22:15 09/04/16 08:44 (PROzac) 20 mg DAILY PO 08/25/16 12:15 09/04/16 08:31 (Catapres) 0.1 mg Q6H PRN PO 08/25/16 12:45 (NovoLIN R INJ) 2 units TIDAC SQ 08/27/16 17:00 09/04/16 11:40 (Protonix) 40 mg Q12HR PO 08/27/16 14:00 09/04/16 08:31 (Levemir Inj) 13 units DAILYAC SQ 08/29/16 08:00 09/04/16 08:37 Insulin Detemir 9 units 9 units HS SQ 08/28/16 21:00 09/01/16 21:00 (Diflucan 100 Mg Premix Bag) 50 ml @ 50 mls/hr Q24H IV 08/30/16 13:00 09/04/16 13:37 (Carafate Liq) 1 gm ACHS PO 09/01/16 18:00 09/04/16 11:37 (Canasa Supp) 1,000 mg HS RECTAL 09/01/16 21:00 09/01/16 21:00 (Xifaxan) 550 mg BID PO 09/01/16 21:00 09/04/16 08:31 (Lovenox Inj) 30 mg Q24H SQ 09/03/16 11:00 09/04/16 11:37 (Deltasone) 10 mg BID PO 09/03/16 21:00 09/10/16 20:59 09/04/16 08:31 (Tylenol) 650 mg Q6H PRN PO 09/04/16 08:15 ([place] 5-325 Mg) 1 tab Q4H PRN PO 09/04/16 08:15 ([place] 10-325 Mg) 1 tab Q4H PRN PO 09/04/16 08:15 09/04/16 13:47 (Randa Lao MD R1) Urinary Catheter: No (Randa Lao MD R1) Vascular Central Line Catheter: No (Randa Lao MD R1) A/P Assessment and Plan Patient is a 60 year old female who presented to ED complaining of abdominal pain. After a prolonged hospital stay, patient care responsibilities were transferred to the family medicine team on 09/02/16. Patient has hx of UC and new onset PUD. Discharge Planning GI cleared patient. Made following recommendations: * Diflucan * Continue Carafate * Continue Rifaximin * Diet as tolerated * Taper prednisone 10mg for 1wk, 5 mg for 1 wk * Cont. PPI BID * F/u with GI on d/c (Randa Lao MD R1) Attending Attestation Patient seen and examined. Case reviewed and discussed with the resident team. Agree with plan of care as discussed with me and documented in the resident note. (Marianne Mejía MD) Problem List: (1) Inflammatory bowel disease Status: Acute Plan: Patient reports hx of Ulcerative Colitis s/p colectomy in June 1999. Duodenal ulcer found on 08/26/16 was initially thought to be Crohn's ulcer but on repeat EGD looked like typical PUD. Hep B and TB work up negative - ordered in anticipation of requiring biologics for management of chronic disease. GI signed off 09/04/16. Their plan and recommendations: * Diet as tolerated. * Continue Rifaximin. * Taper Prednisone: 10mg for 1wk, 5 mg for 1 wk. (2) Duodenal ulcer Status: Acute Plan: Duodenal ulcer first reported in EGD/Colonoscopy report on 08/26/16. Evidence of improvement seen during EGD on 08/30/16. GI signed off 09/04/16. Their plan and recommendations: * Diet as tolerated. * Continue Sucralfate. * Taper Prednisone: 10mg for 1wk, 5 mg for 1 wk. * Continue PPI BID. (3) Esophageal candidiasis Status: Acute Plan: EGD on 08/30 found copious cheesy material in mid to distal esophagus; biopsy taken possible luis. Patient continued on Diflucan. (4) Bradycardia Status: Acute Plan: Bradycardia noticed during this hospital stay. EKG confirmed Sinus Bradycardia. Echo pending. (5) Leukocytosis Status: Acute Plan: Etiology: * Steroid use * Infection: vitals are within normal limits. WBC normal at admission (9.3). WBC elevated. Monitor closely. 17.1 -> 20.3 -> 16.6 -> 16.2 -> 18 ->11.1. Continue on Flagyl and Cipro. (6) Anemia Status: Acute Plan: Hgb/Hct normal at admission. Hgb/Hct abnormal. Monitor closely. Hgb 11.7 -> 11.5 -> 9.9 -> 9.6 -> 8.7 -> 8.6 Hct 36.4 -> 35.1 -> 29.8 -> 29.2 -> 27.3 -> 26.3 (7) Diabetes Status: Acute Plan: Patient is on 13 units AC and 9 units HS of Levemir. She also received 17 additional units over the past 24 hr as per NovoLOG supplemental scale. (8) Depression Status: Chronic Plan: Feels depressed at night. Denies suicidal ideations. Fluoxetine 20mg daily PO Alprazolam 1mg q8hr PRN PO; x2 over last 24hr; last given 09/04 at 8:44. Patient urged to establish care with a psychiatrist in the area. (9) Fluid, Electrolyte, Nutrition and Prophylaxis Status: Acute Plan: Fluid: * Tolerating PO. Electrolyte: * Replete if necessary. * K 3.4 on 09/04. Supplemented KCl 20 x1. * Ca 7.7 on 09/04. Monitor. Nutrition: * Tolerating regular diet. DVT prophylaxis: * Lovenox 30mg q24h SQ. GI prophylaxis: * Protonix 40mg q12h PO. (Randa Lao MD R1) Problem Qualifiers (1) Leukocytosis: Qualified Code: D72.829 - Leukocytosis, unspecified type (2) Anemia: Qualified Code: D64.9 - Anemia, unspecified type Randa Lao MD R1 Sep 04, 2016 15:07 Marianne Mejía MD Sep 04, 2016 16:47
[2016-09-04] MEDS ORDERED: HYDR-3583 PO (15:35)
[2016-09-04] MEDS ORDERED: ALPR1TAB3 PO (15:36)
--- NOTE | 2016-09-04 15:47 | HHI.FF ---
Face to Face Verification Diagnosis: (1) Ulcerative colitis (2) Duodenal ulcer (3) Anemia (4) Depression (5) Obesity Home Health Nursing Order: Medical education Signs/symptoms of disease process Medication education-adverse effect Nursing assessment with vital signs I have seen patient Atiya Lester on 09/04/16. My clinical findings support the need for the requested home health care services because: Patient has SOB Deconditioned w/ increased weakness Need for psychosocial assistance I certify that my clinical findings support that this patient is homebound because: Need for psychosocial assistance Randa Lao MD R1 Sep 04, 2016 15:47
--- NOTE | 2016-09-04 15:49 | HHI.DCPOC ---
Discharge Care Plan Diagnosis: (1) Ulcerative colitis (2) Duodenal ulcer (3) Anemia (4) Depression Goals to Promote Your Health * To prevent worsening of your condition and complications * To maintain your health at the optimal level Directions to Meet Your Goals Take your medications as prescribed Follow your dietary instruction Follow activity as directed Keep your appointments as scheduled Take your immunizations and boosters as scheduled If your symptoms worsen call your PCP, if no PCP go to Urgent Care Center or Emergency Room Smoking is Dangerous to Your Health. Avoid second hand smoke Call the 24-hour hour crisis hotline for domestic abuse at Randa Lao MD R1 Sep 04, 2016 15:49
[2016-09-04] MEDS ORDERED: FLUC200T2 PO (15:56)
[2016-09-04 16:08] VITALS: BP 122/60; PULSE 47; RESP 20; TEMP 98.6; O2SAT 100
[2016-09-04] MEDS ORDERED: CARA1SUS3 PO (16:58)
[2016-09-04] MEDS ORDERED: XIFA550T4 PO (16:58)
[2016-09-04] MEDS ORDERED: LEVEMIR SQ ×2 (16:58)
[2016-09-04] MEDS ORDERED: INSU100V2 SQ (16:58)
[2016-09-04] MEDS ORDERED: PRED5TAB PO (16:58)
[2016-09-04] MEDS ORDERED: FLUO20CA12 PO (16:58)
[2016-09-04] MEDS ORDERED: PANT40TA3 PO (16:58)
[2016-09-04] MEDS ORDERED: PERI8.6T PO (16:58)
--- NOTE | 2016-09-04 19:03 | ECHRPT ---
Indication: Bradycardia, unspecified CONCLUSIONS Normal left ventricular size and wall thickness. The left ventricular systolic function is normal wi th an estimated ejection fraction of 55% Mitral annular calcification is present. trivial pulmonary valve regurgitation. BP: 134 / 65 HR: 52 Rhythm: Sinus MEASUREMENTS (Male / Female) Normal Values Technical Quality:Good 2D ECHO LV Diastolic Diameter PLAX 4.3 cm 4.2 - 5.9 / 3.9 - 5.3 cm LV Systolic Diameter PLAX 3.3 cm IVS Diastolic Thickness 0.9 cm 0.6 - 1.0 / 0.6 - 0.9 cm LVPW Diastolic Thickness 0.7 cm 0.6 - 1.0 / 0.6 - 0.9 cm LV Relative Wall Thickness 0.4 RV Internal Dim ED PLAX 1.8 cm M-MODE Aortic Root Diameter MM 2.8 cm AV Cusp Separation MM 1.9 cm DOPPLER Mitral E Point Velocity 82.4 cm/s Mitral A Point Velocity 74.0 cm/s Mitral E to A Ratio 1.1 LV E' Lateral Velocity 8.1 cm/s Mitral E to LV E' Lateral Ratio 10.2 LV E' Septal Velocity 8.2 cm/s Mitral E to LV E' Septal Ratio 10.1 TR Peak Velocity 168.0 cm/s TR Peak Gradient 11.3 mmHg FINDINGS LEFT VENTRICLE Normal left ventricular size and wall thickness. The left ventricular systolic function is normal wi th an estimated ejection fraction of 55%. Left ventricular diastolic function parameters are normal. MITRAL VALVE Mitral annular calcification is present. PULMONARY VALVE Trivial pulmonary valve regurgitation. Akanksha Da Silva MD, FACC (Electronically Signed) Final Date:04 September 2016 19:02
--- NOTE | 2016-09-04 22:14 | HHI.DS ---
Discharge Summary Admission Date Aug 23, 2016 at 22:03 Discharge Date: Sep 04, 2016 Admitting Diagnosis lactic acidosis (1) Inflammatory bowel disease Diagnosis: Principal Plan: Patient reports hx of Ulcerative Colitis s/p colectomy in June 1999. Duodenal ulcer found on 08/26/16 was initially thought to be Crohn's ulcer but on repeat EGD looked like typical PUD. Hep B and TB work up negative - ordered in anticipation of requiring biologics for management of chronic disease. GI signed off 09/04/16. Their plan and recommendations: * Diet as tolerated. * Continue Rifaximin. * Taper Prednisone: 10mg for 1wk, 5 mg for 1 wk. (2) Duodenal ulcer Diagnosis: Principal Plan: Duodenal ulcer first reported in EGD/Colonoscopy report on 08/26/16. Evidence of improvement seen during EGD on 08/30/16. GI signed off 09/04/16. Their plan and recommendations: * Diet as tolerated. * Continue Sucralfate. * Taper Prednisone: 10mg for 1wk, 5 mg for 1 wk. * Continue PPI BID. (3) Esophageal candidiasis Diagnosis: Principal Plan: EGD on 08/30 found copious cheesy material in mid to distal esophagus; biopsy taken possible luis. Patient continued on Diflucan upon discharge. She will continue this for at least 21 days, or longer if symptoms persist. (4) Bradycardia Diagnosis: Secondary Plan: Bradycardia noted during this hospital stay. EKG confirmed Sinus Bradycardia. Patient is asymptomatic. Echo ordered, performed on 09/04, notable for normal ventricular size and thickness. EF was normal at 55%. There was noted mitral annular calcification and trivial WI. (5) Leukocytosis Diagnosis: Secondary Plan: Etiology: * Steroid use * Infection: vitals are within normal limits. WBC normal at admission (9.3). WBC elevated. Monitor closely. 17.1 -> 20.3 -> 16.6 -> 16.2 -> 18 ->11.1. Continue on Flagyl and Cipro. (6) Anemia Diagnosis: Secondary Plan: Hgb/Hct normal at admission. Hgb/Hct abnormal. Monitor closely. Hgb 11.7 -> 11.5 -> 9.9 -> 9.6 -> 8.7 -> 8.6 Hct 36.4 -> 35.1 -> 29.8 -> 29.2 -> 27.3 -> 26.3 (7) Diabetes Diagnosis: Secondary Plan: Patient is on 13 units AC and 9 units HS of Levemir. She is on [place] TIDAC 2 units She also received 17 additional units over the past 24 hr as per NovoLOG supplemental scale. Will require further titration as outpatient as diet will be different at home (8) Depression Diagnosis: Secondary Plan: Feels depressed at night. Denies suicidal ideations. Initiated in hospital: Fluoxetine 20mg daily PO Alprazolam 1mg q8hr PRN PO Patient urged to establish care with a psychiatrist in the area. PCP follow-up recommended (9) Fluid, Electrolyte, Nutrition and Prophylaxis Diagnosis: Secondary Plan: Fluid: * Tolerating PO. Electrolyte: * Replete if necessary. * K 3.4 on 09/04. Supplemented KCl 20 x1. * Ca 7.7 on 09/04. Monitor. Nutrition: * Tolerating regular diet. DVT prophylaxis: * Lovenox 30mg q24h SQ. GI prophylaxis: * Protonix 40mg q12h PO. Consultants Gastroenterology Procedures EGD Colonoscopy CBC/BMP: 09/03/16 0700 09/04/16 1043 Significant Findings Laboratory Tests Test 09/02/16 09/03/16 09/04/16 11:31 07:00 10:43 White Blood Count 18.0 TH/MM3 11.1 TH/MM3 (4.0-11.0) (4.0-11.0) Red Blood Count 3.05 MIL/MM3 2.96 MIL/MM3 (4.00-5.30) (4.00-5.30) Hemoglobin 8.7 GM/DL 8.6 GM/DL (11.6-15.3) (11.6-15.3) Hematocrit 27.3 % 26.3 % (35.0-46.0) (35.0-46.0) Neutrophils (%) (Auto) 92.6 % 89.6 % (16.0-70.0) (16.0-70.0) Lymphocytes (%) (Auto) 3.8 % 6.2 % (9.0-44.0) (9.0-44.0) Neutrophils # (Auto) 16.7 TH/MM3 10.0 TH/MM3 (1.8-7.7) (1.8-7.7) Lymphocytes # (Auto) 0.7 TH/MM3 0.7 TH/MM3 (1.0-4.8) (1.0-4.8) Potassium Level 3.3 MEQ/L (3.5-5.1) Estimat Glomerular Filtration 69 ML/MIN (>89) 69 ML/MIN (>89) 56 ML/MIN (>89) Rate Random Glucose 162 MG/DL 218 MG/DL 207 MG/DL (74-106) (74-106) (74-106) Calcium Level 7.9 MG/DL 7.6 MG/DL 7.7 MG/DL (8.5-10.1) (8.5-10.1) (8.5-10.1) Total Protein 5.1 GM/DL (6.4-8.2) Albumin 1.7 GM/DL (3.4-5.0) Imaging Last Impressions Abdomen/Pelvis CT 08/26/16 0000 Signed Impressions: Service Date/Time: Friday, August 26, 2016 15:12 - CONCLUSION: I see no evidence for mesenteric ischemia. Pee Mcclure MD FACR Abdomen X-Ray 08/24/16 0000 Signed Impressions: Service Date/Time: Wednesday, August 24, 2016 15:27 - CONCLUSION: Negative abdominal series. Angel Lee MD PE at Discharge GENERAL: This is a well-nourished, well-developed obese patient, in no apparent distress. SKIN: No rashes, warm and dry. HEAD: Atraumatic. Normocephalic. EYES: Pupils equal round and reactive. No scleral icterus. ENT: Nose without bleeding, or drainage, Airway patent. NECK: Trachea midline. CARDIOVASCULAR: Bradycardic. Regular rhythm. No murmur appreciated today. RESPIRATORY: Clear to auscultation. No wheezes, rales, or rhonchi. GASTROINTESTINAL: Abdomen is nontender, nondistended. Positive bowel sounds. MUSCULOSKELETAL: Extremities without clubbing, cyanosis, or edema. NEUROLOGICAL: Awake and alert.Normal speech. No focal neurological deficit. Moves all extremity. Hospital Course Patient is a 60-year-old female with a history significant for poorly controlled diabetes, ulcerative colitis, and depression who presented on 08/23 with complaints of chest pain as severe abdominal pain. As an outpatient, she sees Dr. De La Rosa (colorectal surgery) for her ulcerative colitis and had very recently been placed on steroids and [place] mesalamine. She had bloody diarrhea as an outpatient, which had not improved with her outpatient management. She was notably on Xarelto at home for history of recurrent DVTs. She was admitted for further management given meeting sepsis criteria on admission, possibly related to infectious versus ulcerative colitis, workup for her chest pain, and further management of chronic medical conditions. CAROL was also noted on admission, treated at that time with normal saline at 100 mL per hour. This corrected daily, returned to normal on day 4 of stay after IV fluid administration. Shortly after admission, she was noted to have bradycardia, asymptomatic with further workup notable for elevated lactate, concern for lactic acidosis in line with meeting sepsis criteria (leukocytosis, attempt). Lactic acid was 3.6 initially, returned to normal on day 3 of stay. Leukocytosis noted from 08/24 through 09/03, likely related to steroid administration versus infection. Patient was empirically started on Cipro and Flagyl as well as Solu-Medrol on admission. She was given morphine for pain. Gastroenterology was consulted, initially recommended conservative management (clear liquid diet) and close monitoring with EGD/colonoscopy planned for 08/26. EGD/colonoscopy on 08/26 showing large ulcerations in the distal bulb of the duodenum extending into the distal duodenum. His ulcers appeared to be ischemic, with biopsies taken. Pathology showing evidence of ischemia and acute information. Abdomen/pelvis CTA on 08/26 8778 was performed given evidence of ischemia on EGD. There was no evidence of mesenteric ischemia. After the studies, Solu-Medrol IV was switched to prednisone 20 mg by mouth They did recommend [place] enemas which patient refused. This was switched to another type of suppository which she also refused. Rifaximin 550 mg by mouth twice a day was initiated 09/01/16 which patient tolerated. Repeat EGD was performed on 08/31/16 which was notable for distal esophageal candidiasis. The ulcer noted on previous examination was improved. Diflucan was initiated IV 08/30/2016. GI recommended continuing Diflucan and added Carafate 1 g 3 times a day before meals on 09/01/16. Over hospital stay, anemia, noted, was decreasing over the hospital stay, source being GI bleeding. She will require outpatient monitoring of her Hgb. Cardiac enzymes were trended, within normal limits 3. EKG notable for sinus bradycardia without evidence of ischemic event. Echo was performed and unremarkable. Chronic IDDM was managed with Levemir and sliding scale while inpatient. Over the course of her stay, Novolin before meals was added. Blood sugars remained moderately controlled during her stay, and will likely need to be titrated as an outpatient. Psychiatry was consulted while inpatient. They recommended starting Prozac as patient was on this in the past. This was started while inpatient, continue to discharge. No SI/HI noted. She is also taking Xanax PRN for anxiety, was counseled to follow up with psychiatry upon discharge. At time of discharge, patient was given prescriptions for continued fluconazole , Carafate, rifaximin, prednisone taper (10 mg daily for 1 week, followed by 5 mg daily for 1 week), Protonix for her acute GI illness. She was continued on fluoxetine, trazodone and Percocet with prescription for Sarah-Colace added. She was continued on insulin (Levemir 13 units in the a.m., Levemir 9 units at night , Humulin 2 units 3 times a day before meals) which will need to be titrated as an outpatient given change in diet upon discharge. Xarelto was discontinued given acute GI bleed, however, patient may need to be restarted on his given history of recurrent DVT. She was discharged in stable condition to home with home health nursing. Follow with GI in one to 2 weeks. She is followed PCP within one week. Pt Condition on Discharge: Stable Discharge Disposition: Disch w/ Home Health Serv Discharge Instructions DIET: Follow Instructions for: Heart Healthy Diet, Diabetic Diet Activities you can perform: Regular-No Restrictions Follow up Referrals: GI/CRS Colonoscopy - 1 Week with Santosh Borjas MD PCP Follow-up - 1 Week New Medications: Fluconazole (Fluconazole) 200 Mg Tab 200 MG PO DAILY Infection #30 Ref 0 TAB Insulin Human Regular Inj (Humulin R Inj) 1,000 Unit/10 Ml Vial 2 UNITS SQ TIDAC IMPORTANT TO EAT A MEAL WITHIN 30-60 MINUTES OF DOSING PRN Blood Sugar Management #10 Ref 0 ML Sennosides-Docusate Sodium (Sarah-Colace) 8.6-50 Mg Tab 1 TAB PO BID PRN Constipation #60 Ref 0 TAB Sucralfate Liq (Carafate Liq) 1 Gm/10 Ml Susp 1 GM PO ACHS on empty stomach Duodenal ulcer #1200 Ref 0 ML Fluoxetine (Fluoxetine) 20 Mg Capsule 20 MG PO DAILY #30 CAP Hydrocodone-Acetaminophen (Hydrocodone-Acetaminophen) 10-325 mg Tab 1 TAB PO Q4H PRN PAIN 6-10 #30 TAB Insulin Detemir Inj (Levemir Inj) 1,000 unit/ 10 ML Vial 13 UNITS SQ DAILYAC #1 VIAL Insulin Detemir Inj (Levemir Inj) 1,000 unit/ 10 ML Vial 9 UNITS SQ HS #1 VIAL Pantoprazole (Pantoprazole) 40 Mg Tab 40 MG PO Q12HR #60 TAB Prednisone (Prednisone) 5 Mg Tab 5 MG PO BID Take 2 tabs daily for 7 days, then take 1 tab daily for 7 days. #21 Ref 0 TAB Rifaximin (Xifaxan) 550 Mg Tab 550 MG PO BID #60 TAB Continued Medications: Alprazolam (Alprazolam) 1 Mg Tab 1 MG PO Q8H PRN ANXIETY #30 Ref 0 TAB (This prescription has been renewed) Discontinued Medications: Atorvastatin (Atorvastatin) 80 Mg Tab 80 MG PO HS Cholesterol Management #90 Ref 4 TAB Insulin Glargine Inj (Lantus Solostar Pen Inj) 300 Unit/3 Ml Pen 15 UNITS SQ HS Blood Sugar Management Ref 0 PEN Insulin Lispro (Human) Inj (Humalog Kwikpen Pen Inj) 600 Unit/3 Ml Pen 5 UNITS SQ AC DINNER Blood Sugar Management #1 Ref 2 PEN Insulin Lispro (Human) Inj (Humalog Inj) 1,000 Unit/10 Ml Vial 5 UNITS SQ AC DINNER Blood Sugar Management #1 Ref 0 VIAL Meloxicam (Meloxicam) 7.5 Mg Tab 15 MG PO DAILY Arthritis Pain #60 Ref 0 TAB Mesalamine Enema (Mesalamine Enema) 4 Gm/60 Ml Enem 4 GM RECTAL HS Ulcerative Colitis Ref 0 BOTTLE Mupirocin Topical (Mupirocin Topical) 2 % Oint 1 APPLIC TOPICAL BID Mgmt Bacterial Infection #1 Ref 0 TUBE Prednisone (Prednisone) 10 Mg Tab 10 MG PO DAILY Ref 0 TAB Rivaroxaban (Xarelto) 20 Mg Tab 20 MG PO DAILY Blood Clot Prevention #30 Ref 3 TAB Sulfasalazine (Sulfasalazine) Unknown Strength Tab Unknown Dose PO Q8H #90 Ref 0 TAB Trazodone (Trazodone) 100 Mg Tablet 100 MG PO HS Control Depression #30 Ref 0 TAB Jadyn Weiss MD R1 Sep 04, 2016 22:14
[2016-09-05] MEDS ORDERED: INSU1INJ5 SQ (16:14)
== END 2016-09-04 17:48 | disposition home health service (06) | DRG 872 ==
LOC: NEPE 18:29 → NEDA 21:43 → OBSVTOIN 22:03 → N05B 08-24 00:16
PROVIDERS: ADMIT Family Medicine; ATTEND Family Medicine
PROC: 0DB98ZX Excision of Duodenum, Via Natural or Artificial Opening Endoscopic, Diagnostic (ICD-10-PCS; principal; 2016-08-26 12:30)
PROC: 0DBB8ZX Excision of Ileum, Via Natural or Artificial Opening Endoscopic, Diagnostic (ICD-10-PCS; 2016-08-26 12:30)
PROC: 0DB58ZX Excision of Esophagus, Via Natural or Artificial Opening Endoscopic, Diagnostic (ICD-10-PCS; 2016-08-30)
PROC: 0DB68ZX Excision of Stomach, Via Natural or Artificial Opening Endoscopic, Diagnostic (ICD-10-PCS; 2016-08-30)
DX: A41.9 Sepsis, unspecified organism (principal); E87.2 Acidosis; N17.9 Acute kidney failure, unspecified; K55.8 Other vascular disorders of intestine; B37.81 Candidal esophagitis; E11.65 Type 2 diabetes mellitus with hyperglycemia; K26.9 Duodenal ulcer, unspecified as acute or chronic, without hemorrhage or perforation; E87.1 Hypo-osmolality and hyponatremia; K51.911 Ulcerative colitis, unspecified with rectal bleeding; K25.9 Gastric ulcer, unspecified as acute or chronic, without hemorrhage or perforation; R00.1 Bradycardia, unspecified; R06.4 Hyperventilation; K29.60 Other gastritis without bleeding; I45.10 Unspecified right bundle-branch block; D64.9 Anemia, unspecified; F43.21 Adjustment disorder with depressed mood; Z79.01 Long term (current) use of anticoagulants; Z79.4 Long term (current) use of insulin; Z83.3 Family history of diabetes mellitus
CPT/HCPCS: 74020; 74174; 74176; 76937; 80048; 80053; 81001; 82550; 82948; 83605; 83615; 83690; 84155; 84484; 85025; 85610; 85730; 86317; 86480; 86704; 87040; 87205; 87340; 87493; 87506; 88305; 88312; 93005; 93306; 96361; 96372; 96374; 96375; J0744; J1170; J1450; J1650; J1815; J2270; J2405; J2543; J2920; J7030; J7512; Q9967

== ENCOUNTER 2016-09-14 09:40 | Inpatient (IN) | payer MEDICARE, OTHER ==
[~2016-09-14] VITALS: Ht 175.3 cm; Wt 94.3 kg
[2016-09-14] VITALS (10 sets, daily range): BP systolic 86–137; BP diastolic 48–64; PULSE 87–106; RESP 15–23; TEMP 98.6–100.1; O2SAT 92–100
[~2016-09-14 09:40] MED LIST changes: -ATOR1TAB18 PO; +CARA1SUS3 PO; -CITA40TA4 PO; +FLUC200T2 PO; +FLUO20CA12 PO; +HYDR-3583 PO; +INSU100V2 SQ; -INSU10IN SQ; +INSU1INJ5 SQ; -LANTINJ SQ; -MELO7.5T4 PO; -MUPI2OIN TOPICAL; +PANT40TA3 PO; +PERI8.6T PO; +PRED5TAB PO; -SULF500T3 PO; -TRAZ100T4 PO; -XARE20TA PO; +XIFA550T4 PO
[2016-09-14] MEDS ORDERED: SODIUM CHLOR 0.9% 1000 ML INJ 1,000 ML IV SCH (10:17)
[2016-09-14] MEDS ORDERED: SODIUM CHLORIDE 0.9% FLUSH 10 ML FLUSH IVF PRN (10:30)
[2016-09-14 10:52] LABS: AUTOMATED NEUTROPHIL # 7.6 TH/MM3 (1.8-7.7); BASOPHIL # 0.1 TH/MM3 (0-0.2); BASOPHIL % 0.9 % (0.0-2.0); EOSINOPHIL % 0.3 % (0.0-4.0); LYMPH % 41.1 % (9.0-44.0); MEAN CELL VOLUME 87.8 FL (80.0-100.0); MEAN CORPUSCULAR HEMOGLOBIN 27.5 PG (27.0-34.0); MEAN CORPUSCULAR HGB CONC 31.3 % (32.0-36.0); MONO % 5.8 % (0.0-8.0); NEUT % 51.9 % (16.0-70.0); PLATELET COUNT 178 TH/MM3 (150-450); RED BLOOD COUNT 1.62 MIL/MM3 (4.00-5.30); RED CELL DISTRIBUTION WIDTH 15.2 % (11.6-17.2); WHITE BLOOD COUNT 14.6 TH/MM3 (4.0-11.0)
[2016-09-14 10:59] LABS: HEMO FLAGS AUTO DIFF
[2016-09-14 11:02] LABS: HEMATOCRIT 14.2 % (35.0-46.0)
--- NOTE | 2016-09-14 11:08 | PD ---
HPI Chief Complaint: GI Complaint Time Seen by Provider: 09:57 Travel History International Travel<30 days: No Contact w/Intl Traveler<30days: No Traveled to known affect area: No History of Present Illness HPI Patient is a 60 year old female with a history of ulcerative colitis complaining of two episodes of dark stool, once last night and once this morning. Associated symptoms include weakness, fatigue, and periumbilical abdominal pain. She denies any nausea, vomiting, hematemesis, or bright red blood in the stool. She was previously on Xarelto but has not taken it for two weeks. She was hospitalized about 10 days ago in which she underwent upper and lower endoscopies. She denies any history of gastric or duodenal ulcers on this latest endoscopy. PFSH Past Medical History Hx Anticoagulant Therapy: Yes (xarelto) Arthritis: No Asthma: No Autoimmune Disease: No Blood Disorders: No Bipolar Disorder: Yes Anxiety: Yes Depression: Yes Heart Rhythm Problems: No Cancer: No Cardiovascular Problems: Yes High Cholesterol: Yes (on Lipitor) Chemotherapy: No Chest Pain: Yes Congestive Heart Failure: No COPD: No Cerebrovascular Accident: No Diabetes: Yes Patient Takes Glucophage: No Diminished Hearing: No Deep Vein Thrombosis: Yes (STOMACH AND INTO CHEST) Endocrine: Yes Gastrointestinal Disorders: Yes GERD: No Glaucoma: No Genitourinary: No Headaches: Yes Hepatitis: No Hiatal Hernia: No Hypertension: No Immune Disorder: No Implanted Vascular Access Dvce: No Kidney Stones: No Musculoskeletal: Yes (arthritis in RIGHT knee) Neurologic: No Psychiatric: Yes Reproductive: No Respiratory: Yes (PE at 29 years of age) Integumentary: Yes (HERPES) Immunizations Current: Yes Myocardial Infarction: No Radiation Therapy: No Renal Failure: No Seizures: No Sickle Cell Disease: No Sleep Apnea: No Thyroid Disease: No Ulcer: Yes (ULCERATIVE COLLITIS) ?: Not Menopausal: Yes Tubal Ligation: Yes Past Surgical History Abdominal Surgery: Yes (LARGE INTESTINE REMOVED) AICD: No Cardiac Surgery: No Ear Surgery: No Endocrine Surgery: No Eye Surgery: No Genitourinary Surgery: No Gynecologic Surgery: Yes (TUBAL LIGATION) Hysterectomy: Yes Neurologic Surgery: No Oral Surgery: No Pacemaker: No Thoracic Surgery: No Other Surgery: Yes (DILITATION OF ESOPHAGUS) Social History Alcohol Use: No Tobacco Use: No Substance Use: No Allergies-Medications (Allergen,Severity, Reaction): Coded Allergies: No Known Allergies (Verified , 08/23/16) Reported Meds & Prescriptions Reported Meds & Active Scripts Active Levemir Flextouch Pen Inj (Insulin Detemir) 300 unit/3 ML Pen 1 Units SQ DIRECTED Take 13 units in the morning before breakfast. Take 9 units at bedtime. Sarah-Colace (Sennosides-Docusate Sodium) 8.6-50 Mg Tab 1 Tab PO BID PRN Prednisone 5 Mg Tab 5 Mg PO BID Take 2 tabs daily for 7 days, then take 1 tab daily for 7 days. Carafate Liq (Sucralfate) 1 Gm/10 Ml Susp 1 Gm PO ACHS on empty stomach Xifaxan (Rifaximin) 550 Mg Tab 550 Mg PO BID Pantoprazole (Pantoprazole Sodium) 40 Mg Tab 40 Mg PO Q12HR Fluoxetine (Fluoxetine HCl) 20 Mg Capsule 20 Mg PO DAILY Humulin R Inj (Insulin Human Regular) 1,000 Unit/10 Ml Vial 2 Units SQ TIDAC PRN IMPORTANT TO EAT A MEAL WITHIN 30-60 MINUTES OF DOSING Fluconazole 200 Mg Tab 200 Mg PO DAILY Alprazolam 1 Mg Tab 1 Mg PO Q8H PRN Hydrocodone-Acetaminophen 10-325 mg Tab 1 Tab PO Q4H PRN Review of Systems Except as stated in HPI: all other systems reviewed are Neg General / Constitutional: No: Fever, Chills Respiratory: No: Cough Gastrointestinal: Positive: Abdominal Pain, Changes in Bowel Habits (Melena), No: Nausea, Vomiting, Hematemesis Genitourinary: No: Urgency, Frequency, Dysuria Neurologic: Positive: Weakness Physical Exam Narrative GENERAL: Patient appears anxious and uncomfortable. SKIN: Pale and dry. HEAD: Atraumatic. Normocephalic. EYES: Pupils equal and round. No scleral icterus. Pale conjunctiva. ENT: No nasal bleeding or discharge. Mucous membranes pale and dry. NECK: Trachea midline. No JVD. CARDIOVASCULAR: Tachycardic with regular rhythm. RESPIRATORY: No accessory muscle use. Clear to auscultation. Breath sounds equal bilaterally. GASTROINTESTINAL: Abdomen soft, non-tender, nondistended. Hepatic and splenic margins not palpable. Mild tenderness to palpation in periumbilical region. Rectal exam shows melena without any hemorrhoids with positive fecal occult. MUSCULOSKELETAL: Extremities without clubbing, cyanosis, or edema. No obvious deformities. NEUROLOGICAL: Awake and alert. No obvious cranial nerve deficits. Motor grossly within normal limits. Five out of 5 muscle strength in the arms and legs. Normal speech. PSYCHIATRIC: Appropriate mood and affect; insight and judgment normal. Appears uneasy Data Data Last Documented VS Vital Signs Date Time Temp Pulse Resp B/P Pulse Ox O2 Delivery O2 Flow Rate FiO2 09/14/16 10:52 104 18 115/52 100 2 09/14/16 09:58 98.6 Orders Complete Blood Count With Diff (09/14/16 10:17) Comprehensive Metabolic Panel (09/14/16 10:17) Prothrombin Time / Inr (Pt) (09/14/16 10:17) Act Partial Throm Time (Ptt) (09/14/16 10:17) Type And Screen (09/14/16 10:17) Ecg Monitoring (09/14/16 10:17) Iv Access Insert/Monitor (09/14/16 10:17) Oximetry (09/14/16 10:17) Sodium Chlor 0.9% 1000 Ml Inj (Ns 1000 M (09/14/16 10:17) Sodium Chloride 0.9% Flush (Ns Flush) (09/14/16 10:30) Lactic Acid (09/14/16 10:25) Red Blood Cells (Rbc) (09/14/16 11:02) Blood Product Administration .UPON TRANSFUSION (09/14/16 11:02) Sodium Chlor 0.9% 250 Ml Inj (Ns 250 Ml (09/14/16 11:15) Vascular Access Team Consult/P PRN (09/14/16 11:10) Vascular Poc Ultrasound (09/14/16 ) Admit Order (Ed Use Only) (09/14/16 ) Labs Laboratory Tests Test 09/14/16 09/14/16 09/14/16 10:40 11:08 12:00 White Blood Count 14.6 TH/MM3 Red Blood Count 1.62 MIL/MM3 Hemoglobin 4.5 GM/DL Hematocrit 14.2 % Mean Corpuscular Volume 87.8 FL Mean Corpuscular Hemoglobin 27.5 PG Mean Corpuscular Hemoglobin 31.3 % Concent Red Cell Distribution Width 15.2 % Platelet Count 178 TH/MM3 Mean Platelet Volume 8.5 FL Neutrophils (%) (Auto) 51.9 % Lymphocytes (%) (Auto) 41.1 % Monocytes (%) (Auto) 5.8 % Eosinophils (%) (Auto) 0.3 % Basophils (%) (Auto) 0.9 % Neutrophils # (Auto) 7.6 TH/MM3 Lymphocytes # (Auto) 6.0 TH/MM3 Monocytes # (Auto) 0.8 TH/MM3 Eosinophils # (Auto) 0.0 TH/MM3 Basophils # (Auto) 0.1 TH/MM3 CBC Comment AUTO DIFF Differential Total Cells 100 Counted Neutrophils % (Manual) 47 % Band Neutrophils % 16 % Lymphocytes % 24 % Monocytes % 8 % Neutrophils # (Manual) 9.9 TH/MM3 Metamyelocytes 2 % Myelocytes 3 % Nucleated Red Blood Cells 6 /100 WBC Differential Comment FINAL DIFF MANUAL Platelet Estimate NORMAL Platelet Morphology Comment NORMAL Polychromasia 2.4 % Sodium Level 139 MEQ/L Potassium Level 4.7 MEQ/L Chloride Level 103 MEQ/L Carbon Dioxide Level 24.7 MEQ/L Anion Gap 11 MEQ/L Blood Urea Nitrogen 18 MG/DL Creatinine 1.33 MG/DL Estimat Glomerular Filtration 41 ML/MIN Rate Random Glucose 306 MG/DL Calcium Level 7.5 MG/DL Total Bilirubin 0.5 MG/DL Aspartate Amino Transf 11 U/L (AST/SGOT) Alanine Aminotransferase 12 U/L (ALT/SGPT) Alkaline Phosphatase 72 U/L Total Protein 4.9 GM/DL Albumin 1.7 GM/DL Crossmatch Leukocyte-Reduced Red Blood Cells Blood Bank Comment Prothrombin Time 13.1 SEC Prothromb Time International 1.2 RATIO Ratio Activated Partial 20.1 SEC Thromboplast Time Lactic Acid Level 2.7 mmol/L MDM Medical Decision Making Medical Screen Exam Complete: Yes Emergency Medical Condition: Yes Differential Diagnosis GI bleeding, anemia, colon cancer, hemorrhoids, diverticulosis, AVM. Narrative Course Patient roomed in emergency department, found to be significantly anemic with hemoglobin of 4. 2 units of PRBCs were ordered after discussion of risks benefits competitions and alternatives with the patient she is agreeable to blood transfusion. She has some mild hypotension in the emergency department. She was discussed at length with the resident level to special education classroom aide who will admit to Dr. Mancilla in the ICU. Findings were discussed with the patient and she is agreeable for admission. Critical Care Narrative Aggregate critical care time was 35 minutes. Time to perform other separately billable procedures was not included in the critical care time. My time did not include minutes spent treating any other patients simultaneously or on activities that did not directly contribute to the patient's treatment. The services I provided to this patient were to treat and/or prevent clinically significant deterioration that could result in: , distally, organ failure I provided critical care services requiring my management, as noted below: Chart data review, documentation time, medication orders and management, vital sign assessments/reviewing monitor data, ordering and reviewing lab tests, ordering and interpreting/reviewing x-rays and diagnostic studies, care of the patient and discussion of the patient with the admitting physicians. Diagnosis Primary Impression: GI bleed Qualified Code: K92.1 - Gastrointestinal hemorrhage with melena Additional Impression: Anemia Admitting Information Admitting Physician Requests: Admit Condition: Nahun Garcia MD Sep 14, 2016 11:08
[2016-09-14 11:10] LABS: ALT (GPT) 12 U/L (10-53); ANION GAP 11 MEQ/L (5-15); AST (GOT) 11 U/L (15-37); BICARBONATE 24.7 MEQ/L (21.0-32.0); BLOOD UREA NITROGEN 18 MG/DL (7-18); CHLORIDE 103 MEQ/L (98-107); GLOMERULAR FILTRATION RATE 41 ML/MIN (>89); POTASSIUM 4.7 MEQ/L (3.5-5.1); SODIUM (NA) 139 MEQ/L (136-145)
[2016-09-14 11:12] LABS: ALKALINE PHOSPHATASE 72 U/L (45-117); TOTAL BILIRUBIN ADULT 0.5 MG/DL (0.2-1.0)
[2016-09-14] MEDS ORDERED: SODIUM CHLOR 0.9% 250 ML INJ 250 ML IV ONE (11:15)
[2016-09-14 11:39] LABS: BANDS 16 % (0-6); CORRECTED NUCLEATED RBC 6 /100 WBC (0-0); METAMYELOCYTES 2 % (0-1); MYELOCYTES 3 % (0-0); NEUTROPHIL # MANUAL DIFF 9.9 TH/MM3 (1.8-7.7); POLYS (SEG NEUTROPHILS) 47 % (16-70); WBC DIFF SAMPLE 100
[2016-09-14 11:40] LABS: PLATELET ESTIMATE SMEAR NORMAL (NORMAL); PLATELET MORPHOLOGY NORMAL (NORMAL); POLYCHROMASIA 2.4 % (0.0-1.9); SCAN/DIFF FINAL DIFF MANUAL
--- NOTE | 2016-09-14 11:51 | HHI.HP ---
[facility] Service Family Medicine Primary Care Physician Jadyn Ramirez R1 MD Abhishek Admission Diagnosis Diagnoses: Chief Complaint: dark stools International Travel<30 Days: No Contact w/Intl Traveler<30days: No History of Present Illness 60-year-old female with history of ulcerative colitis, diabetes, IBS presents with dark stools. Patient states that she started having several black stools. States they have been diarrhea. Has had 3 since yesterday. No pain with defecation. Has also felt weak and fatigued today. Feels tired, but denies any headache or dizziness. Patient also states she started having stomach pain yesterday morning. Doesn't know specific spot states it's all over her belly. States it is 8 out of 10. Constant pain. No nausea or vomiting. Denies any coughing of blood. States her stools are very dark, denies any gross blood in her stools. States she has had decreased appetite lately. Was on a steroid taper him last admission. On last admission, she was found to have several ulcers in the duodenum. States she had been doing okay until just yesterday. ( Nickolas Aguirre MD R1) Review of Systems Constitutional: COMPLAINS OF: Diaphoretic episodes, Chills, DENIES: Fever, Dizziness Eyes: DENIES: Vision loss Ears, nose, mouth, throat: DENIES: Running Nose Respiratory: DENIES: Cough, Sputum production, Shortness of breath Cardiovascular: DENIES: Chest pain, Palpitations Gastrointestinal: COMPLAINS OF: Abdominal pain, Black stools, Diarrhea, DENIES : Bloody stools, Constipation, Nausea, Vomiting Genitourinary: DENIES: Hematuria, Dysuria Musculoskeletal: DENIES: Joint pain, Muscle aches Integumentary: DENIES: Rash Hematologic/lymphatic: DENIES: Bruising, Lymphadenopathy Neurologic: COMPLAINS OF: Headache Psychiatric: DENIES: Depression (Nickolas Aguirre MD R1) Past Family Social History Past Medical History Hyperlipidemia DM Depression Hx of DVT Ulcerative colitis Duodenal ulcer Luis esophagitis GERD OA IBS Past Surgical History Total colectomy Tubal ligation Reported Medications Reported Meds & Active Scripts Active Levemir Flextouch Pen Inj (Insulin Detemir) 300 unit/3 ML Pen 1 Units SQ DIRECTED Take 13 units in the morning before breakfast. Take 9 units at bedtime. Sarah-Colace (Sennosides-Docusate Sodium) 8.6-50 Mg Tab 1 Tab PO BID PRN Prednisone 5 Mg Tab 5 Mg PO BID Take 2 tabs daily for 7 days, then take 1 tab daily for 7 days. Carafate Liq (Sucralfate) 1 Gm/10 Ml Susp 1 Gm PO ACHS on empty stomach Xifaxan (Rifaximin) 550 Mg Tab 550 Mg PO BID Pantoprazole (Pantoprazole Sodium) 40 Mg Tab 40 Mg PO Q12HR Fluoxetine (Fluoxetine HCl) 20 Mg Capsule 20 Mg PO DAILY Humulin R Inj (Insulin Human Regular) 1,000 Unit/10 Ml Vial 2 Units SQ TIDAC PRN IMPORTANT TO EAT A MEAL WITHIN 30-60 MINUTES OF DOSING Fluconazole 200 Mg Tab 200 Mg PO DAILY Alprazolam 1 Mg Tab 1 Mg PO Q8H PRN Hydrocodone-Acetaminophen 10-325 mg Tab 1 Tab PO Q4H PRN (Nickolas Aguirre MD R1 ) Allergies: Coded Allergies: No Known Allergies (Verified , 08/23/16) Active Ordered Medications Active Medications Sodium Chloride (NS 1000 ml Inj) 1,000 ml @ 1,000 mls/hr Q1H IV Last administered on 09/14/16t 10:51; Admin Dose 1,000 MLS/HR; Start 09/14/16 at 10: 17; Stop 09/14/16 at 11:16; Status DC Sodium Chloride (NS 250 ml Inj) 250 ml @ 15 mls/hr ONCE ONCE IV; Start at 11:15; Stop 09/15/16 at 03:54 Sodium Chloride 2 ml 2 ml UNSCH PRN IVF; Start 09/14/16 at 10:30 Family History Non-contributory Social History Denies tobacco, alcohol, other drug use (Nickolas Aguirre MD R1) Physical Exam Vital Signs Vital Signs Date Time Temp Pulse Resp B/P Pulse Ox O2 Delivery O2 Flow Rate FiO2 09/14/16 10:52 104 18 115/52 100 2 09/14/16 09:58 98.6 106 18 106/62 92 Physical Exam GENERAL: This is a well-nourished, well-developed patient, tearful SKIN: No rashes, ecchymoses or lesions. Cool and dry. HEAD: Atraumatic. Normocephalic. EYES: Pupils equal round and reactive. Extraocular motions intact. No scleral icterus. No injection or drainage. ENT: Nose without discharge. Throat without erythema, tonsillar hypertrophy or exudate. Uvula midline. Airway patent. NECK: Trachea midline. No JVD or lymphadenopathy. Supple, nontender. CARDIOVASCULAR: Regular rate and rhythm without murmurs, gallops, or rubs. RESPIRATORY: Clear to auscultation. Breath sounds equal bilaterally. No wheezes , rales, or rhonchi. GASTROINTESTINAL: Abdomen soft, pain to palpation in mid-abdomen. Non- distended. No masses appreciated. BS+ MUSCULOSKELETAL: Lower extremities with 2+ edema bilaterally. No calf tenderness. NEUROLOGICAL: Awake and alert. Motor and sensory grossly within normal limits. Normal speech. Laboratory Laboratory Tests Test 09/14/16 10:40 White Blood Count 14.6 Red Blood Count 1.62 Hemoglobin 4.5 Hematocrit 14.2 Mean Corpuscular Volume 87.8 Mean Corpuscular Hemoglobin 27.5 Mean Corpuscular Hemoglobin 31.3 Concent Red Cell Distribution Width 15.2 Platelet Count 178 Mean Platelet Volume 8.5 Neutrophils (%) (Auto) 51.9 Lymphocytes (%) (Auto) 41.1 Monocytes (%) (Auto) 5.8 Eosinophils (%) (Auto) 0.3 Basophils (%) (Auto) 0.9 Neutrophils # (Auto) 7.6 Lymphocytes # (Auto) 6.0 Monocytes # (Auto) 0.8 Eosinophils # (Auto) 0.0 Basophils # (Auto) 0.1 CBC Comment AUTO DIFF Differential Total Cells 100 Counted Neutrophils % (Manual) 47 Band Neutrophils % 16 Lymphocytes % 24 Monocytes % 8 Neutrophils # (Manual) 9.9 Metamyelocytes 2 Myelocytes 3 Nucleated Red Blood Cells 6 Differential Comment FINAL DIFF MANUAL Platelet Estimate NORMAL Platelet Morphology Comment NORMAL Polychromasia 2.4 Sodium Level 139 Potassium Level 4.7 Chloride Level 103 Carbon Dioxide Level 24.7 Anion Gap 11 Blood Urea Nitrogen 18 Creatinine 1.33 Estimat Glomerular Filtration 41 Rate Random Glucose 306 Calcium Level 7.5 Total Bilirubin 0.5 Aspartate Amino Transf 11 (AST/SGOT) Alanine Aminotransferase 12 (ALT/SGPT) Alkaline Phosphatase 72 Total Protein 4.9 Albumin 1.7 (Nickolas Aguirre MD R1) Result Diagram: 09/14/16 1040 09/14/16 1040 Assessment and Plan Assessment and Plan This is a 60-year-old female with history of ulcerative colitis and ulcers, presents with melena and abdominal pain. Found to have significant anemia 4.5 and was a dramatic. Will admit for workup of GI bleed. Code Status Full Discussed Condition With Dr. Pack (Nickolas Aguirre MD R1) Attending Attestation THIS CASE WAS DISCUSSED WITH THE RESIDENT PHYSICIANS. I HAVE REVIEWED THE RECORD AND AGREE WITH THE ABOVE NOTE AND PLAN OF CARE WAS DISCUSSED. I HAVE AUTHORIZED THE ORDER FOR ADMISSION TO AN IN-PATIENT STATUS. (Marianne Mejía MD) Problem List: (1) GI bleed Status: Acute Plan: Pt has a h/o duodenal ulcer, IBD, recent luis esophagitis. Recently discharged, a few weeks ago. Presents with melena and abdominal pain. No history of chronic NSAID use, alcohol abuse, smoking. Recent short course of steroids. Some unintentional weight loss. Denies any hematemesis, only melena. Endorses dizziness, fatigue. Tachycardic and hypotensive on admission. Hemoccult positive. Previous EGD/colonoscopy: large duodenal ulcers. H/H on admission was 4.5. PT/INR 13.1/1.2 -Admit to ICU -Protonix bolus, then drip -H/Hs Q6hrs -Ordered 2 units to be transfused in ED -Consult GI-appreciate recs -NPO until evaluated -Fall precautions. Supplemental O2 PRN. Pulse Ox. -CBC, BMP in AM -Hold all anticoagulation. SCDs for DVT prophylaxis. (2) Lactic acid increased Status: Acute Plan: Elevated lactic acid 2.7. Leukocytosis of 14.6 on admission, patient has been on steroid taper however. Low-grade temperature of 100.1. Patient with elevated lactic acid on last admission, found to have Luis esophagitis, and was on course of Diflucan. -Will add Flagyl 500 mg IV q8 and ciprofloxacin 500 mg q12 for empiric coverage -Trend lactic acid -Continue to monitor vital signs -If worsening abdominal pain, signs of infection, may need CT or further antibiotics. (3) CAROL (acute kidney injury) Status: Acute Plan: Creatinine elevated to 1.33 on admission. Was down to 0.84 at last hospital stay. BUN 18. -IV fluids -Follow BMP -Avoid nephrotoxins (4) Diabetes Status: Acute Plan: History of chronic diabetes. On insulin at home. -Low dose sliding scale while inpatient -NPO for now, monitor sugars (5) FEN Status: Acute Plan: Fluids: NS @ 150mls/hr Electrolytes: wnl, continue to monitor Nutrition: NPO DVT ppx: chemoppx contraindicated, SCDs GI ppx: Protonix drip (Nickolas Aguirre MD R1) Physician Certification 2 Midnight Certification Type: Admission for Inpatient Services Order for Inpatient Services The services are ordered in accordance with Medicare regulations or non- Medicare payer requirements, as applicable. In the case of services not specified as inpatient-only, they are appropriately provided as inpatient services in accordance with the 2-midnight benchmark. Estimated LOS (days): 3 days is the estimated time the patient will need to remain in the hospital, assuming treatment plan goals are met and no additional complications. Post-Hospital Plan: Home (Nickolas Aguirre MD R1) 2 Midnight Certification Type: Admission for Inpatient Services Post-Hospital Plan: Not yet determined (Marianne Mejía MD) Problem Qualifiers (1) GI bleed: Qualified Code: K92.1 - Gastrointestinal hemorrhage with melena (2) Diabetes: Qualified Code: E11.9 - Type 2 diabetes mellitus without complication, with long-term current use of insulin Nickolas Aguirre MD R1 Sep 14, 2016 11:51 Marianne Mejía MD Sep 15, 2016 11:11
[2016-09-14 12:33] LABS: INTERNATIONAL NORMALIZED RATIO 1.2 RATIO; PROTHROMBIN TIME - PATIENT 13.1 SEC (9.8-11.6)
[2016-09-14 12:35] LABS: APTT (PATIENT) 20.1 SEC (24.3-30.1)
[2016-09-14] MEDS ORDERED: DEXTROSE 50% IN WATER 50 ML VIAL(D50) IV PRN (12:45)
[2016-09-14] MEDS ORDERED: GLUCAGON 1 MG/ML VIAL OTHER PRN (12:45)
[2016-09-14] MEDS ORDERED: PANTOPRAZOLE INJ 80 MG in SODIUM CHLORIDE 0.9% INJ 35 ML IV ONE (13:30)
[2016-09-14] MEDS: SODIUM CHLOR 0.9% 1000 ML INJ 1,000 ML IV SCH ×2 (14:05→21:41)
[2016-09-14] MEDS: SODIUM CHLORIDE 0.9% FLUSH 10 ML FLUSH IV FLUSH PRN (14:06)
[2016-09-14] MEDS: PANTOPRAZOLE INJ 80 MG in SODIUM CHLORIDE 0.9% INJ 100 ML IV SCH (14:28)
--- NOTE | 2016-09-14 14:33 | PD.CONS ---
HPI History of Present Illness This is a 60 year old female with a history of ulcerative colitis, who has had a total colectomy in the past, who presented to the ER for evaluation of abdominal pain and gastrointestinal bleeding. She was recently hospitalized earlier this month for GI bleeding and evaluated with EGD/Colonoscopy (08/26/16)-- ----> Esophagus normal, Stomach: normal, Duodenum: large ulcerations in the distal bulb extending into the descending duodenum. Multiple possibly ischemic looking ulcers. Biopsies taken. Also could be crohns ulcers. Ileum normal, at 25cm. Rectum has appearance of ileal pouch. Two biopsies taken. Pathology focally ulcerated and necrotic small intestinal mucosal biopsies exhibiting features suggestive of ischemia, distorted small intestinal mucosal biopsies with acute inflammation, clinically J pouch biopsy. Abdomen/Pelvis CTA (08/26/16) -----> I see no evidence for mesenteric ischemia. She then had a repeat EGD (08/31) --> copious cheesy material in mid to distal esophagus, biopsy taken possible luis, antral gastritis, and large deep ulcer in distal bulb at 12: 00 position. Ulcer in descending duodenum appears improved, looks more like typical PUD now. Pathology revealed antral mucosa with mild active chronic gastritis, esophageal mucosa with acute esophagitis containing budding yeast and pseudohyphae in the superficial keratin layers, consistent with luis esophagitis. A GMS stain performed on block #2 is positive for these fungal organisms. She was treated with Protonix, Carafate, Diflucan, Canasa, and Xifaxan. She reports that she was doing well initially after she went home, but started having abdominal pain again earlier this week. She describes this as a cramping pain in her mid and lower abdomen. She then started having black tarry stools about 2 days ago. She denies any nausea or vomiting. She has had decreased appetite and has lost 20 lbs over the past 3 months. She has had breakthrough heartburn. She has not passed any red blood. She denies the use of any Ibuprofen or NSAIDS. PFSH Past Medical History Ulcerative colitis Duodenal ulcer Luis esophagitis DM Depression Anxiety Ulcerative Colitis, dx 1999 Hyperlipidemia Past Surgical History EGD Colonoscopy Total colectomy Tubal ligation Coded Allergies: No Known Allergies (Verified , 08/23/16) Medications Allergies Coded Allergies Type Severity Reaction Last Updated Verified No Known Allergies 08/23/16 Yes Active Scripts Medications Dose Route/Sig Days Date Category Dose Instructions Levemir Flextouch Pen Inj (Insulin Detemir) 300 unit/3 ML Pen 1 Units SQ DIRECTED 09/05/16 Rx Take 13 units in the morning before breakfast. Take 9 units at bedtime. Sarah-Colace (Sennosides-Docusate Sodium) 8.6-50 Mg Tab 1 Tab PO BID PRN 09/04/16 Rx Prednisone 5 Mg Tab 5 Mg PO BID 09/04/16 Rx Take 2 tabs daily for 7 days, then take 1 tab daily for 7 days. Carafate Liq (Sucralfate) 1 Gm/10 Ml Susp 1 Gm PO ACHS 09/04/16 Rx on empty stomach Xifaxan (Rifaximin) 550 Mg Tab 550 Mg PO BID 09/04/16 Rx Pantoprazole (Pantoprazole Sodium) 40 Mg Tab 40 Mg PO Q12HR 09/04/16 Rx Fluoxetine (Fluoxetine HCl) 20 Mg Capsule 20 Mg PO DAILY 09/04/16 Rx Humulin R Inj (Insulin Human Regular) 1,000 Unit/10 Ml Vial 2 Units SQ TIDAC PRN 09/04/16 Rx IMPORTANT TO EAT A MEAL WITHIN 30-60 MINUTES OF DOSING Fluconazole 200 Mg Tab 200 Mg PO DAILY 09/04/16 Rx Alprazolam 1 Mg Tab 1 Mg PO Q8H PRN 09/04/16 Rx Hydrocodone-Acetaminophen 10-325 mg Tab 1 Tab PO Q4H PRN 09/04/16 Rx Family History No family hx of IBD. Social History No use of tobacco, etoh. Prior marijuana use, not for several months Review of Systems Constitutional: COMPLAINS OF: Fever, Weight loss (20 lbs), Chills Respiratory: DENIES: Cough Cardiovascular: DENIES: Chest pain Gastrointestinal: COMPLAINS OF: Abdominal pain, Black stools, Heartburn, DENIES: Bloody stools, Constipation, Diarrhea, Nausea, Vomiting, Swelling of Abdomen Genitourinary: DENIES: Urinary frequency, Urinary incontinence, Urgency, Hematuria Musculoskeletal: COMPLAINS OF: Joint pain Hematologic/lymphatic: DENIES: Bruising Neurologic: DENIES: Headache Psychiatric: DENIES: Confusion GI Exam Vitals I&O Vital Signs Date Time Temp Pulse Resp B/P Pulse Ox O2 Delivery O2 Flow Rate FiO2 09/14/16 14:09 100.1 106 15 97/48 99 Nasal Cannula 2 09/14/16 12:24 96 20 86/52 100 Nasal Cannula 2 09/14/16 10:52 104 18 115/52 100 2 09/14/16 09:58 98.6 106 18 106/62 92 Laboratory Test 09/14/16 09/14/16 09/14/16 09/14/16 10:40 11:08 12:00 12:10 White Blood Count 14.6 TH/MM3 Red Blood Count 1.62 MIL/MM3 Hemoglobin 4.5 GM/DL Hematocrit 14.2 % Mean Corpuscular Volume 87.8 FL Mean Corpuscular Hemoglobin 27.5 PG Mean Corpuscular Hemoglobin 31.3 % Concent Red Cell Distribution Width 15.2 % Platelet Count 178 TH/MM3 Mean Platelet Volume 8.5 FL Neutrophils (%) (Auto) 51.9 % Lymphocytes (%) (Auto) 41.1 % Monocytes (%) (Auto) 5.8 % Eosinophils (%) (Auto) 0.3 % Basophils (%) (Auto) 0.9 % Neutrophils # (Auto) 7.6 TH/MM3 Lymphocytes # (Auto) 6.0 TH/MM3 Monocytes # (Auto) 0.8 TH/MM3 Eosinophils # (Auto) 0.0 TH/MM3 Basophils # (Auto) 0.1 TH/MM3 CBC Comment AUTO DIFF Differential Total Cells 100 Counted Neutrophils % (Manual) 47 % Band Neutrophils % 16 % Lymphocytes % 24 % Monocytes % 8 % Neutrophils # (Manual) 9.9 TH/MM3 Metamyelocytes 2 % Myelocytes 3 % Nucleated Red Blood Cells 6 /100 WBC Differential Comment FINAL DIFF MANUAL Platelet Estimate NORMAL Platelet Morphology Comment NORMAL Polychromasia 2.4 % Sodium Level 139 MEQ/L Potassium Level 4.7 MEQ/L Chloride Level 103 MEQ/L Carbon Dioxide Level 24.7 MEQ/L Anion Gap 11 MEQ/L Blood Urea Nitrogen 18 MG/DL Creatinine 1.33 MG/DL Estimat Glomerular Filtration 41 ML/MIN Rate Random Glucose 306 MG/DL Calcium Level 7.5 MG/DL Total Bilirubin 0.5 MG/DL Aspartate Amino Transf 11 U/L (AST/SGOT) Alanine Aminotransferase 12 U/L (ALT/SGPT) Alkaline Phosphatase 72 U/L Total Protein 4.9 GM/DL Albumin 1.7 GM/DL Crossmatch Leukocyte-Reduced Red Blood Cells Blood Bank Comment Prothrombin Time 13.1 SEC Prothromb Time International 1.2 RATIO Ratio Activated Partial 20.1 SEC Thromboplast Time Lactic Acid Level 2.7 mmol/L Blood Type A POSITIVE Antibody Screen NEGATIVE Physical Examination HEENT: Normocephalic; atraumatic; no jaundice. CHEST: CTA CARDIAC: RRR ABDOMEN: Soft, nondistended, mild mid abdominal tenderness,; no hepatosplenomegaly; bowel sounds are present in all four quadrants. EXTREMITIES: No clubbing, cyanosis, or edema. SKIN: Normal; no rash; no jaundice. [employer] SUPERVISOR: No focal deficits; alert and oriented times three. Assessment and Plan Plan ASSESSMENT: - Upper GIB, Melena in patient with recent large duodenal ulcer. Recent hospitalization EGD/Colonoscopy (08/26/16)------> Esophagus normal, Stomach: normal, Duodenum: large ulcerations in the distal bulb extending into the descending duodenum. Multiple possibly ischemic looking ulcers. Biopsies taken. Also could be crohns ulcers. Ileum normal, at 25cm. Rectum has appearance of ileal pouch. Two biopsies taken. Pathology focally ulcerated and necrotic small intestinal mucosal biopsies exhibiting features suggestive of ischemia, distorted small intestinal mucosal biopsies with acute inflammation, clinically J pouch biopsy. Abdomen/Pelvis CTA (08/26/16)-----> I see no evidence for mesenteric ischemia. Rpt EGD (08/31/16) --> copious cheesy material in mid to distal esophagus, biopsy taken possible luis, antral gastritis, and large deep ulcer in distal bulb at 12:00 position. Ulcer in descending duodenum appears improved, looks more like typical PUD now. Pathology revealed antral mucosa with mild active chronic gastritis, esophageal mucosa with acute esophagitis containing budding yeast and pseudohyphae in the superficial keratin layers, consistent with luis esophagitis. A GMS stain performed on block #2 is positive for these fungal organisms. She was treated with Protonix, Carafate, Diflucan, Canasa, and Xifaxan. She did better at home, but started having mid and lower abdominal cramping about a week ago and started having melena 2 days ago. HH on 09/03 was 8.6/26.3 and today is 4.5/14.2. 2 units of PRBC has been ordered. On first unit now. NPO. Protonix Gtt. - Severe anemia secondary to acute blood loss. HH on 09/03 was 8.6/26.3 and today is 4.5/14.2. 2 units of PRBC ordered. Protonix Gtt. - Recent large duodenal bulb ulcer. Protonix Gtt. - Luis Esophagitis. Diflucan, PPI, Carafate at home. She has been on diflucan since 08/31. Will await repeat EGD to see if this needs to be restarted here in hospital. - Abnormal weight loss. 20 lb weight loss over 3 months. - Ulcerative colitis. Dx 1999. S/P Total Colectomy. Prednisone taper. - Leukocytosis/Fever/Lactic acid 2.7. WBC 14.6. - CAROL. Creat 1.33. - DM, Depression/Anxiety, Hyperlipidemia PLAN: - Plan for egd today - Obtain consents - NPO - Agree with transfusion - Protonix Gtt - Monitor HH - Transfuse as necessary - CBC, BMP in am - Further recommendations to follow based on results of above - Pt seen and examined by Dr. Gutierrez and myself and this note is written on her behalf Marjan Doyle Sep 14, 2016 14:33
[2016-09-14] MEDS: metroNIDAZOLE 500 MG INJ 100 ML IV SCH ×2 (16:05→23:02)
[2016-09-14] MEDS ORDERED: PROPOFOL 200 MG/20 ML AMP IV ONE (17:25)
[2016-09-14] MEDS ORDERED: DO NOT ADM ANY ANTICOAGULANT DRUGS PRN (18:00)
--- NOTE | 2016-09-14 18:01 | GIPROC ---
[facility] [address] [facility]. [facility], [id number] EGD PROCEDURE REPORT EXAM DATE: 09/14/2016 PATIENT NAME: Atiya Lester MR #: [id number] BIRTHDATE: 1955 ATTENDING: Opal Gutierrez MD ORDER #: [id number] PROFESSOR OF THEATER: Madelin Canseco and Anjali Avitia STATUS: inpatient INDICATIONS: The patient is a 60 yr old female here for an EGD due to anemia gi bleeding PROCEDURE PERFORMED: EGD w/ biopsy MEDICATIONS: Per Anesthesia and None. TOPICAL ANESTHETIC: CONSENT: The patient understands the risks and benefits of the procedure and understands that these risks include, but are not limited to: sedation, allergic reaction, infection, perforation and/or bleeding. Alternative means of evaluation and treatment include, among others: physical exam, x-rays, and/or surgical intervention. The patient elects to proceed with this endoscopic procedure. medical equipment was checked for proper function. Hand hygiene and appropriate measures for infection prevention was taken. After the risks, benefits and alternatives of the procedure were thoroughly explained, Informed consent was verified, confirmed and timeout was successfully executed by the treatment team. The patient was anesthetized with topical anesthesia and the Pentax EG-[id number] endoscope was introduced through the mouth and advanced to the third portion of the duodenum. Retroflexed views revealed a hiatal hernia The gastroscope was then slowly withdrawn and removed. Gastritis antrum-biopsy esophagitis distal esophagus -biopsy duodenitis second and third portion of duodenum ulcer clean base duodenla bulb-comunication with a cavitary area -looks old-biopsy no active bleeding. ADVERSE EVENTS: There were no complications. IMPRESSIONS: 1. Gastritis antrum-biopsy esophagitis distal esophagus -biopsy duodenitis second and third portion of duodenum ulcer clean base duodenla bulb-comunication with a cavitary area -looks old-biopsy no active bleeding 2. Retroflexed views revealed a hiatal hernia RECOMMENDATIONS: 1. Await biopsy results. Biopsy results will not be ready for 7-10 days. If you don't hear from us in two weeks, call our office for biopsy results. 2. Npo except medications consult known to him ct abdomen/pelvis with oral contrast iv antibiotics transfuse 2 units of prbc celiac panel sed rate PATIENT CONDITION: stable DISPOSITION: Inpatient REPEAT EXAM: EGD pending biopsy results Opal Gutierrez MD eSigned: Opal Gutierrez MD 09/14/2016 6:01 PM cc: PATIENT NAME: Atiya Lestre MR#: [id number]
[2016-09-14] MEDS: INSULIN ASPART SUPPLEMENTAL SCALE SQ SCH ×2 (18:05→21:00)
[2016-09-14] MEDS ORDERED: DIATRIZOATE MEGLUM/DIATRIZOATE SOD 9 ML CUP PO ONE (18:30)
[2016-09-14 18:33] LABS: HEMATOCRIT 19.1 % (35.0-46.0); REVIEW FLAG FINAL
[2016-09-14] MEDS ORDERED: CIPROFLOXACIN 500 MG TAB PO SCH (21:00)
[2016-09-14] MEDS: cefTRIAXone INJ 1,000 MG in SODIUM CHLORIDE 0.9% INJ 100 ML IV SCH (21:34)
[2016-09-14] MEDS: SODIUM CHLORIDE 0.9% FLUSH 10 ML FLUSH IV FLUSH SCH (21:34)
[2016-09-14] MEDS ORDERED: NALOXONE HCL 0.4 MG/ML AMP IV PRN (22:30)
--- NOTE | 2016-09-14 22:46 | RADRPT ---
EXAM DATE/TIME: 09/14/2016 22:22 [facility] COMPARISON: CT ABDOMEN & PELVIS W/O CONTRAST, August 23, 2016, 20:52. INDICATIONS : GI bleed; duodenal ulcers - possible duodenal / abdominal fistula. ORAL CONTRAST: Prescribed oral contrast ingested. RADIATION DOSE: 16.80 CTDIvol (mGy) MEDICAL HISTORY : Deep venous thrombosis. Gastroesophageal reflux disease. Diabetes mellitus type 2. SURGICAL HISTORY : Hysterectomy. ENCOUNTER: Initial ACUITY: 3 weeks PAIN SCALE: 7/10 LOCATION: abdomen TECHNIQUE: Volumetric scanning of the abdomen and pelvis was performed. Using automated exposure control and ad justment of the mA and/or kV according to patient size, radiation dose was kept as low as reasonably achievable to obtain optimal diagnostic quality images. DICOM format image data is available electro nically for review and comparison. FINDINGS: LOWER LUNGS: The visualized lower lungs are clear. LIVER: Homogeneous density without lesion. There is no dilation of the biliary tree. No calcified gallston es. SPLEEN: Normal size without lesion. PANCREAS: Within normal limits. KIDNEYS: Normal in size and shape. There is no mass, stone, or hydronephrosis. ADRENAL GLANDS: Within normal limits. VASCULAR: There is no aortic aneurysm. BOWEL/MESENTERY: There is perforation of the duodenum and abnormal fluid collection with contrast seen anterior to the mesenteric vasculature measuring 9.1 x 2.5 cm. There is adjacent stranding in the mesentery. ABDOMINAL WALL: Within normal limits. RETROPERITONEUM: There is no lymphadenopathy. BLADDER: No wall thickening or mass. REPRODUCTIVE: Calcified leiomyoma. INGUINAL: There is no lymphadenopathy or hernia. MUSCULOSKELETAL: Within normal limits for patient age. CONCLUSION: 1. Perforation along the proximal duodenum with fluid collection of contrast and air measuring 9.1 x 2.5 cm. 2. Calcified leiomyoma. 3. Mild distention of the urinary bladder. Dr. Villalba notified of these findings. Will Pink MD on September 14, 2016 at 22:38 Board Certified Radiologist. This report was verified electronically.
[2016-09-14] MEDS: MORPHINE SULFATE 4 MG/ML INJ IV PRN (23:00)
[2016-09-14] MEDS: ACETAMINOPHEN 1000 MG/100 ML VIAL IV SCH (23:01)
[2016-09-15] VITALS (19 sets, daily range): BP systolic 97–139; BP diastolic 55–69; PULSE 66–84; RESP 12–31; TEMP 97.6–99.5; O2SAT 95–100
[2016-09-15 00:24] LABS: BLOOD, URINE NEG (NEG); COMMENT (UR) CULT NOT INDICATED; CULTURE IF INDICATED CULT NOT INDICATED; GLUCOSE,URINE 300 mg/dL (NEG); HYALINE CAST, URINE 1 /lpf (RARE); KETONE, URINE TRACE mg/dL (NEG); MUCUS URINE FEW /lpf (OCC); NITRITE,URINE NEG (NEG); SQUAMOUS EPITHELIAL CELL URINE <1 /hpf (0-5); URINE COLOR YELLOW (YELLW/STRAW)
[2016-09-15] MEDS: PANTOPRAZOLE INJ 80 MG in SODIUM CHLORIDE 0.9% INJ 100 ML IV SCH ×3 (00:55→20:03)
[2016-09-15 01:03] LABS: HEMATOCRIT 24.8 % (35.0-46.0)
[2016-09-15 01:17] LABS: REVIEW FLAG FINAL
[2016-09-15] MEDS: SODIUM CHLOR 0.9% 1000 ML INJ 1,000 ML IV SCH ×4 (02:14→20:05)
[2016-09-15] MEDS: MORPHINE SULFATE 4 MG/ML INJ IV PRN ×5 (02:15→23:56)
[2016-09-15 04:35] LABS: HEMATOCRIT 23.7 % (35.0-46.0)
[2016-09-15 04:38] LABS: REVIEW FLAG FINAL
[2016-09-15] MEDS: ACETAMINOPHEN 1000 MG/100 ML VIAL IV SCH ×3 (04:57→16:43)
[2016-09-15 05:07] LABS: BICARBONATE 26.8 MEQ/L (21.0-32.0); CALCIUM-PROTEIN CORRECTED 8.3 MG/DL (8.5-10.1); POTASSIUM 3.5 MEQ/L (3.5-5.1); TOTAL BILIRUBIN ADULT 0.7 MG/DL (0.2-1.0)
[2016-09-15] MEDS: INSULIN ASPART SUPPLEMENTAL SCALE SQ SCH ×4 (07:00→20:04)
--- NOTE | 2016-09-15 07:52 | MB ---
cc: MARY ALICE SNOW M.D. DATE OF CONSULTATION: 09/15/2016 REASON FOR CONSULTATION: Duodenal perforation HISTORY OF PRESENT ILLNESS The patient is a 60-year-old female with history of ulcerative colitis who had two episodes of dark stool on 09/14/2016. The patient had weakness, fatigue and periumbilical pain. The patient had previous hospitalization about 11 days ago which demonstrated a duodenal ulcer. The patient has been on low-dose steroids per Dr. Villalba, who I discussed the case with at approximately 11:30 p.m. The patient was previously on Xarelto but has been off of this for the last 2 weeks. She underwent endoscopy currently by Dr. Gutierrez which demonstrated the ulcer with passage anteriorly. The patient initially presented this time with a hemoglobin of 4.5. WBC 14.6. Lactate level was 2.7. The patient had blood per rectum of 115/52 and pulse of 104 on admission. The patient has received 4 units of packed red cells since admission through the emergency department. She is remained hemodynamically stable throughout the night. PAST MEDICAL HISTORY: 1. History of bipolar disorder with anxiety and depression. 2. Hypercholesterolemia. 3. History of chest pain. 4. Headache. 5. 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. 6. 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 7. History of ulcerative colitis with subtotal colectomy. Dr. Villalba relates that the patient has a portion of her sigmoid and rectum remaining. 8. The patient has undergone esophageal dilatation. 9. Tubal ligation in the past. 10. Insulin-dependent diabetes. ALLERGIES: NONE KNOWN. MEDICATIONS ON ADMISSION: 1. Levemir 13 units q a.m., 9 units q p.m. 2. Sarah-Colace b.i.d. p.r.n. 3. Prednisone 5 milligrams b.i.d. down to 5 milligrams q day. 4. Carafate one gram after meals and hs. 5. Rifaximin 55 milligrams b.i.d. 6. Pantoprazole 40 milligrams q12 hours. 7. Fluoxetine 20 milligrams q day. 8. Humulin R on sliding scale. 9. Fluconazole 200 milligrams q day. 10. Alprazolam 1 milligram p.o. q8 hours p.r.n. 11. Hydrocodone 10/325 q4 hours p.r.n. PHYSICAL EXAMINATION: The physical exam reveals an obese female who is resting quietly. Vitals: BP 100/57, pulse 78, respirations 16, temperature 98.8, 95% saturation on 2 liters nasal cannula. Sclerae anicteric. Chest is clear to auscultation. Cardiac exam reveals regular rate and rhythm. Abdomen is soft and nontender. There is a well-healed midline scar extending from just below the xyphoid down to the pubis. There are no hernias noted. Pulses are present. As noted above, there is a right middle finger missing. The patient is able to move all four extremities. LABORATORY VALUES: This morning, demonstrate H&H of 8.0 and 23.7 down from 8.7 at midnight. Chemistries demonstrate BUN and creatinine of 16 and 1.0. Coags demonstrate INR of 1.2 and pro time of 13.1. CT scan obtained demonstrates a perforation of the duodenum with an abnormal fluid collection with contrast anterior to the mesenteric vasculature measuring 9.1 x 2.5 cm with adjacent stranding in the mesentery. There is no free perforation into the abdominal cavity. ASSESSMENT Contained duodenal perforation in a patient who is currently hemodynamically stable. PLAN: I would recommend IV antibiotics, n.p.o. status with NG tube to keep the stomach decompressed. Would consider communication with interventional radiology for consideration of drainage of this abscess cavity. This could possibly create a fistula, however, given the size of this fluid collection, the patient might best be served by drainage unless interventional radiology cannot reach it. If the patient deteriorates or continues to bleed, then surgical intervention could possibley be required. We will follow with you. Dr. Seth will see the patient later today and follow her closely. Thank you for the consultation. MD GEORGES Chu/BUBBA /6:21 AM /7:44 AM ADRIENNE
[2016-09-15] MEDS: SODIUM CHLORIDE 0.9% FLUSH 10 ML FLUSH IV FLUSH SCH ×2 (09:00→20:04)
--- NOTE | 2016-09-15 09:06 | HHI.FPPN ---
Subjective Remarks Patient feels better this morning. She states she is in 0 pain today. Denies nausea, vomiting, fever, chills. She is tearful because of her current circumstances. (Jas Rob MD R2) Objective Vitals Vital Signs Date Time Temp Pulse Resp B/P Pulse Ox O2 Delivery O2 Flow Rate FiO2 09/15/16 07:58 98 Nasal Cannula 2.00 09/15/16 04:00 98.8 78 31 100/57 95 09/15/16 04:00 78 09/15/16 00:00 99.5 84 14 139/68 100 09/15/16 00:00 84 09/14/16 21:21 Nasal Cannula 09/14/16 20:00 98.9 87 18 137/64 100 09/14/16 20:00 87 09/14/16 19:03 99.5 87 20 123/63 100 09/14/16 18:15 100.4 94 22 125/66 100 Nasal Cannula 2 09/14/16 18:00 93 22 131/62 100 Nasal Cannula 2 09/14/16 17:45 96 22 121/60 100 Nasal Cannula 2 09/14/16 17:34 100.5 92 20 103/54 100 Nasal Cannula 2 09/14/16 16:30 94 16 95/53 98 Nasal Cannula 2 09/14/16 16:00 92 23 111/54 99 Nasal Cannula 2 09/14/16 15:00 91 18 106/51 99 Nasal Cannula 2 09/14/16 14:25 100.0 102 18 103/52 99 Nasal Cannula 2 09/14/16 14:09 100.1 106 15 97/48 99 Nasal Cannula 2 09/14/16 12:24 96 20 86/52 100 Nasal Cannula 2 09/14/16 10:52 104 18 115/52 100 2 09/14/16 09:58 98.6 106 18 106/62 92 I/O 09/14/16 09/14/16 09/14/16 09/15/16 09/15/16 09/15/16 06:59 14:59 22:59 06:59 14:59 22:59 Intake Total 3185 ml 1053 ml Output Total 725 ml Balance 3185 ml 328 ml Intake Oral 480 ml IV Total 558 ml 1053 ml Packed Cells 1147 ml Other 1000 ml Output Urine Total 725 ml Gastric Drainage Total 0 ml # Voids 1 # Bowel Movements 2 (Jas Rob MD R2) Result Diagram: 09/15/16 0353 09/15/16 0353 Imaging Last Impressions Abdomen/Pelvis CT 09/14/161801 Signed Impressions: Service Date/Time: Friday, September 14, 2016 22:22 - CONCLUSION: 1. Perforation along the proximal duodenum with fluid collection of contrast and air measuring 9.1 x 2.5 cm. 2. Calcified leiomyoma. 3. Mild distention of the urinary bladder. Dr. Villalba notified of these findings. Will Pink MD Objective Remarks GENERAL: This is an elderly female lying comfortably in bed, no acute distress. NG tube in place SKIN: . Cool and dry. HEAD: Atraumatic. Normocephalic. EYES: Pupils equal round and reactive. Extraocular motions intact. No scleral icterus. No injection or drainage. NECK: Trachea midline. No JVD or lymphadenopathy. Supple, nontender. CARDIOVASCULAR: Regular rate and rhythm without murmurs, gallops, or rubs. RESPIRATORY: Clear to auscultation. Breath sounds equal bilaterally. No wheezes , rales, or rhonchi. GASTROINTESTINAL: Abdomen soft, nontender to palpation. Non-distended. No masses appreciated. BS+ MUSCULOSKELETAL: Lower extremities with 1+ edema bilaterally. No calf tenderness. NEUROLOGICAL: Awake and alert. Motor and sensory grossly within normal limits. Normal speech. (Jas Rob MD R2) A/P Assessment and Plan This is a 60-year-old female with history of ulcerative colitis and ulcers, presents with severe anemia found to have perforated ulcer and abscess formation. Gastroenterology and colorectal surgery consulted. Discharge Planning Pending clinical improvement (Jas Rob MD R2) Attending Attestation Patient seen and examined. Case reviewed and discussed with the resident team. Agree with plan of care as discussed with me and documented in the resident note. she has done remarkably well considering her serious illness. she is hemodynamically stable and able to rest comfortably. no active signs of bleeding (Lisa Mancilla MD) Problem List: (1) Perforated duodenal ulcer Status: Acute Plan: CT scan 09/14 demonstrates a perforation of the duodenum with an abnormal fluid collection with contrast anterior to the mesenteric vasculature measuring 9.12.5 cm with adjacent stranding in the mesentery. There is no free perforation into the abdominal cavity. Colorectal surgery, Dr. Cisneros, consulted Gastroenterology consult Continue antibiotics as below Nothing by mouth with NG tube to keep the stomach decompressed. Pain: IV Tylenol, morphine Continue Protonix drip If the patient deteriorates clinically, continues to bleed, surgical intervention would be required. (2) Abscess Status: Acute Plan: CT scan 09/14 shows 9.12.5 cm fluid collection anterior to the mesenteric vasculature with adjacent stranding in the mesentery. Colorectal surgery consulted Colorectal surgery considering interventional radiology consult (3) GI bleed Status: Acute Plan: From perforated ulcer, see above Gastroenterology consult Colorectal surgery consult Status post 4 units packed red blood cells Continue IV antibiotics per GI: Flagyl 500 IV every 8 hours, Rocephin 1 g IV every 24 hours Continue to monitor H&H Transfuse as needed (4) Depression with anxiety Status: Acute Plan: Continue fluoxetine Continuing Xanax, patient may need IV Xanax with NG tube (5) CAROL (acute kidney injury) Status: Acute Plan: Improved. Continue hydration and continue to monitor. (6) Diabetes Status: Acute Plan: History of chronic diabetes. On insulin at home. -Low dose sliding scale while inpatient (7) FEN Status: Acute Plan: Fluids: NS @ 150mls/hr Electrolytes: wnl, continue to monitor Nutrition: NPO DVT ppx: chemoppx contraindicated, SCDs GI ppx: Protonix drip (Jas Rob MD R2) Problem Qualifiers (1) GI bleed: Qualified Code: K29.91 - Gastrointestinal hemorrhage associated with gastroduodenitis (2) Diabetes: Qualified Code: E11.9 - Type 2 diabetes mellitus without complication, with long-term current use of insulin Jas Rob MD R2 Sep 15, 2016 09:06 Lisa Mancilla MD Sep 18, 2016 14:55
[2016-09-15] MEDS: FLUoxetine HCL 20 MG CAP PO SCH (09:22)
[2016-09-15] MEDS: metroNIDAZOLE 500 MG INJ 100 ML IV SCH ×3 (10:13→23:56)
--- NOTE | 2016-09-15 10:46 | HHI.GIFU ---
Subjective Remarks Lying in bed in no distress. Denies abdominal pain. No nausea or vomiting. NG tube in place draining yellow fluid. (Tahmina Pappas) Objective Vitals I&O Vital Signs Date Time Temp Pulse Resp B/P Pulse Ox O2 Delivery O2 Flow Rate FiO2 09/15/16 10:00 74 15 124/68 98 09/15/16 09:00 69 14 108/63 100 09/15/16 08:00 97.8 72 26 103/55 99 09/15/16 07:58 98 Nasal Cannula 2.00 09/15/16 07:00 74 14 101/57 97 09/15/16 04:00 98.8 78 31 100/57 95 09/15/16 04:00 78 09/15/16 00:00 99.5 84 14 139/68 100 09/15/16 00:00 84 09/14/16 21:21 Nasal Cannula 09/14/16 20:00 98.9 87 18 137/64 100 09/14/16 20:00 87 09/14/16 19:03 99.5 87 20 123/63 100 09/14/16 18:15 100.4 94 22 125/66 100 Nasal Cannula 2 09/14/16 18:00 93 22 131/62 100 Nasal Cannula 2 09/14/16 17:45 96 22 121/60 100 Nasal Cannula 2 09/14/16 17:34 100.5 92 20 103/54 100 Nasal Cannula 2 09/14/16 16:30 94 16 95/53 98 Nasal Cannula 2 09/14/16 16:00 92 23 111/54 99 Nasal Cannula 2 09/14/16 15:00 91 18 106/51 99 Nasal Cannula 2 09/14/16 14:25 100.0 102 18 103/52 99 Nasal Cannula 2 09/14/16 14:09 100.1 106 15 97/48 99 Nasal Cannula 2 09/14/16 12:24 96 20 86/52 100 Nasal Cannula 2 09/14/16 10:52 104 18 115/52 100 2 I/O 09/14/16 09/14/16 09/14/16 09/15/16 09/15/16 09/15/16 07:00 15:00 23:00 07:00 15:00 23:00 Intake Total 3185 ml 1053 ml Output Total 725 ml Balance 3185 ml 328 ml Intake Oral 480 ml IV Total 558 ml 1053 ml Packed Cells 1147 ml Other 1000 ml Output Urine Total 725 ml Gastric Drainage Total 0 ml # Voids 1 # Bowel Movements 2 Laboratory Laboratory Tests Test 09/14/16 09/14/16 09/14/16 09/14/16 10:40 11:08 12:00 12:10 White Blood Count 14.6 Red Blood Count 1.62 Hemoglobin 4.5 Hematocrit 14.2 Mean Corpuscular Volume 87.8 Mean Corpuscular Hemoglobin 27.5 Mean Corpuscular Hemoglobin 31.3 Concent Red Cell Distribution Width 15.2 Platelet Count 178 Mean Platelet Volume 8.5 Neutrophils (%) (Auto) 51.9 Lymphocytes (%) (Auto) 41.1 Monocytes (%) (Auto) 5.8 Eosinophils (%) (Auto) 0.3 Basophils (%) (Auto) 0.9 Neutrophils # (Auto) 7.6 Lymphocytes # (Auto) 6.0 Monocytes # (Auto) 0.8 Eosinophils # (Auto) 0.0 Basophils # (Auto) 0.1 CBC Comment AUTO DIFF Differential Total Cells 100 Counted Neutrophils % (Manual) 47 Band Neutrophils % 16 Lymphocytes % 24 Monocytes % 8 Neutrophils # (Manual) 9.9 Metamyelocytes 2 Myelocytes 3 Nucleated Red Blood Cells 6 Differential Comment FINAL DIFF MANUAL Platelet Estimate NORMAL Platelet Morphology Comment NORMAL Polychromasia 2.4 Sodium Level 139 Potassium Level 4.7 Chloride Level 103 Carbon Dioxide Level 24.7 Anion Gap 11 Blood Urea Nitrogen 18 Creatinine 1.33 Estimat Glomerular Filtration 41 Rate Random Glucose 306 Calcium Level 7.5 Total Bilirubin 0.5 Aspartate Amino Transf 11 (AST/SGOT) Alanine Aminotransferase 12 (ALT/SGPT) Alkaline Phosphatase 72 Total Protein 4.9 Albumin 1.7 Crossmatch Leukocyte-Reduced Red Blood Cells Blood Bank Comment Prothrombin Time 13.1 Prothromb Time International 1.2 Ratio Activated Partial 20.1 Thromboplast Time Lactic Acid Level 2.7 Blood Type A POSITIVE Antibody Screen NEGATIVE Test 09/14/16 09/14/16 09/14/16 09/14/16 17:10 17:45 18:40 23:40 Blood Type A POSITIVE Crossmatch Leukocyte-Reduced Red Blood Cells Blood Bank Comment Hemoglobin 6.4 Hematocrit 19.1 Erythrocyte Sedimentation Rate 17 Nasal Screen MRSA (PCR) MRSA NOT DETECTED Urine Color YELLOW Urine Turbidity CLEAR Urine pH 6.0 Urine Specific [place] 1.016 Urine Protein TRACE Urine Glucose (UA) 300 Urine Ketones TRACE Urine Occult Blood NEG Urine Nitrite NEG Urine Bilirubin NEG Urine Urobilinogen LESS THAN 2.0 Urine Leukocyte Esterase NEG Urine RBC LESS THAN 1 Urine WBC 3 Urine Squamous Epithelial <1 Cells Urine Hyaline Casts 1 Urine Mucus FEW Microscopic Urinalysis Comment CULT NOT INDICATED Test 09/15/16 09/15/16 09/15/16 00:45 03:53 07:26 Hemoglobin 8.7 8.0 Hematocrit 24.8 23.7 Sodium Level 142 Potassium Level 3.5 Chloride Level 106 Carbon Dioxide Level 26.8 Anion Gap 9 Blood Urea Nitrogen 16 Creatinine 1.07 Estimat Glomerular Filtration 52 Rate Random Glucose 189 Calcium Level 6.9 Protein Corrected Calcium 8.3 Total Bilirubin 0.7 Aspartate Amino Transf 13 (AST/SGOT) Alanine Aminotransferase 9 (ALT/SGPT) Alkaline Phosphatase 57 Total Protein 4.5 Albumin 1.5 Blood Type A POSITIVE Crossmatch Leukocyte-Reduced Red Blood Cells Blood Bank Comment Imaging Last Impressions Abdomen/Pelvis CT 09/14/161801 Signed Impressions: Service Date/Time: Wednesday, September 14, 2016 22:22 - CONCLUSION: 1. Perforation along the proximal duodenum with fluid collection of contrast and air measuring 9.1 x 2.5 cm. 2. Calcified leiomyoma. 3. Mild distention of the urinary bladder. Dr. Villalba notified of these findings. Will Pink MD Physical Exam HEENT: PERRLA, NGT in place. NECK: Neck is supple, no JVD, no lymphadenopathy. CHEST: CTA CARDIAC: RRR ABDOMEN: Soft, nondistended, nontender; no hepatosplenomegaly; bowel sounds x 4 quadrants EXTREMITIES: No clubbing, cyanosis, or edema. SKIN: Normal; no rash; no jaundice. [employer]: No focal deficits; alert and oriented x 3. (aThmina Pappas) Assessment and Plan Plan ASSESSMENT: - Upper GIB, Melena in patient with recent large duodenal ulcer. Recent hospitalization EGD/Colonoscopy (08/26/16)------> Esophagus normal, Stomach: normal, Duodenum: large ulcerations in the distal bulb extending into the descending duodenum. Multiple possibly ischemic looking ulcers. Biopsies taken. Also could be crohns ulcers. Ileum normal, at 25cm. Rectum has appearance of ileal pouch. Two biopsies taken. Pathology focally ulcerated and necrotic small intestinal mucosal biopsies exhibiting features suggestive of ischemia, distorted small intestinal mucosal biopsies with acute inflammation, clinically J pouch biopsy. Abdomen/Pelvis CTA (08/26/16)-----> I see no evidence for mesenteric ischemia. Rpt EGD (08/31/16) --> copious cheesy material in mid to distal esophagus, biopsy taken possible luis, antral gastritis, and large deep ulcer in distal bulb at 12:00 position. Ulcer in descending duodenum appears improved, looks more like typical PUD now. Pathology revealed antral mucosa with mild active chronic gastritis, esophageal mucosa with acute esophagitis containing budding yeast and pseudohyphae in the superficial keratin layers, consistent with luis esophagitis. A GMS stain performed on block #2 is positive for these fungal organisms. She was treated with Protonix, Carafate, Diflucan, Canasa, and Xifaxan. She did better at home, but started having mid and lower abdominal cramping about a week ago and started having melena 2 days ago. HH on 09/03 was 8.6/26.3 and trended down to 4.5/14.2 on 09/14. HH today 8/23.7. S/P blood transfusions. NPO. Protonix Gtt. EGD 09/14/16-- 1. Gastritis antrum-biopsy, esophagitis distal esophagus- biopsy, duodenitis second and third portion of duodenum ulcer clean base duodenal bulb-communication with a cavitary area -looks old- biopsy, no active bleeding 2. Retroflexed views revealed a hiatal hernia. Biopsies pending. Abdomen/Pelvis CT 09/14/16--1. Perforation along the proximal duodenum with fluid collection of contrast and air measuring 9.1 x 2.5 cm. 2. Calcified leiomyoma. 3. Mild distention of the urinary bladder. Plan for drainage of abscess cavity by IR today. - Severe anemia secondary to acute blood loss. HH on 09/03 was 8.6/26.3 and today is 8/23.7. S/P blood transfusions. Protonix Gtt. - Recent large duodenal bulb ulcer. Protonix Gtt. - Luis Esophagitis. Diflucan, PPI, Carafate at home. She has been on diflucan since 08/31. - Abnormal weight loss. 20 lb weight loss over 3 months. - Ulcerative colitis. Dx 1999. S/P Total Colectomy. Prednisone taper. - Leukocytosis/Fever/Lactic acid 2.7. WBC 14.6. - CAROL. Creat 1.07 - DM, Depression/Anxiety, Hyperlipidemia PLAN: - IR Draining of Abscess today - NPO - NGT for stomach decompression - Cont Protonix Gtt - Monitor HH - Transfuse as necessary - CBC, BMP in am - Further recommendations to follow based on results of above Patient seen and examined by Dr. Gutierrez and myself and this note is written on her behalf (Tahmina Pappas) Physician Comments seen, examined agree with above still concern for possible Crohn's disease we will consult information strategist for TPN may need central line for this patient had partial colectomy for ischemic bowel, secondary to a blood clot- recent cta negative for mesenteric ischemia fu biopsy celiac panel supportive care may need fu study in the near future to asses closing of the defect-quite large doubt will close on its own (Opal Gutierrez MD) Tahmina Pappas Sep 15, 2016 10:46 Opal Gutierrez MD Sep 15, 2016 14:23
[2016-09-15] MEDS ORDERED: LIDOCAINE 1%/EPINEPHrine 1:100,000 SOLN 20 ML VIAL ONE (10:48)
[2016-09-15 11:17] LABS: HEMATOCRIT 31.6 % (35.0-46.0)
[2016-09-15 11:18] LABS: REVIEW FLAG FINAL
[2016-09-15] MEDS ORDERED: fentaNYL CITRATE 250 MCG/5 ML AMP ONE (12:36)
[2016-09-15] MEDS ORDERED: MIDAZOLAM HCL 5 MG/5 ML VIAL ONE (12:36)
--- NOTE | 2016-09-15 13:33 | PD.RAD ---
Post CT Procedure Prog Note Pre Procedure Diagnosis: (1) Perforated duodenal ulcer Post Procedure Diagnosis: (1) Perforated duodenal ulcer Procedure Date: Sep 15, 2016 Supervising Radiologist: Ady Jasmine Anesthesia: Conscious Sedation Plan of Activity Patient to Unit: Critical Care Patient Condition: Good Additional Comments: Very challenging drain. Placed 8F pigtail. Largely air collection. Approx 2ml of purulent fluid removed. See PACS Report for procedural detail/treatment Ady Jasmine MD Sep 15, 2016 13:33
--- NOTE | 2016-09-15 13:57 | RADRPT ---
EXAM DATE/TIME: 09/15/2016 12:50 [facility] COMPARISON: No previous studies available for comparison. INDICATIONS : Perforated duodenal ulcer with associated abscess SEDATION TIME: 20 minutes MEDICATION(S): 1.) 2 mg midazolam (Versed) IV 2.) 150 mcg fentanyl (Sublimaze) IV DEVICE(S): 1.) 6 Fr Skater 2.) 18 gauge Venegas blunt needle FLUID: Total volume of 5 cc of [place] fluid was removed. Fluid was sent for laboratory ordered studies. MEDICAL HISTORY : Ulcerative colitis. Gastroesophageal reflux disease. diabetes, pulmonary embolism, deep vein thrombo sis SURGICAL HISTORY : Hysterectomy. Colon resection. ENCOUNTER: Initial ACUITY: 1 day PAIN SCORE: 7/10 LOCATION: umbilical abdomen PROCEDURE: 1.) Conscious sedation with continuous EKG and oximetry monitoring. 2.) EKG and oximetry remained stable throughout the procedure. PROCEDURE : 1. CT guided drainage of upper abdominal collection 2. Conscious sedation with continuous EKG and oximetry monitoring. The risks, benefits and alternatives to the procedure were explained and verbal and written consent w as obtained. Using automated exposure control and adjustment of the mA and/or kV according to patient size, radiation dose was kept as low as reasonably achievable to obtain optimal diagnostic quality i mages. The site was prepped in sterile fashion. Full sterile technique was used, including cap, ma sk, sterile gloves and gown and a large sterile sheet. Hand hygiene and 2% chlorhexidine and/or beta dine/alcohol prep was utilized per protocol for cutaneous antisepsis. The skin and subcutaneous tiss ues were infiltrated with local anesthetic solution. DICOM format image data is available electronic ally for review and comparison. Using CT guidance the prescribed site was localized. 18 gauge Venegas needle was advanced into the co llection utilizing very careful CT guidance with blunt stylet beyond the anterior abdominal muscles. Short [place] wire was then coiled in the collection. Tract was serially dilated and drainage catheter advanced over the wire. Approximately 2 cc of purulent fluid was removed following catheter placement . Collection was largely composed of air. Catheter was then connected to accordion drainage bag. The patient tolerated the procedure well and there were no complications. Conscious sedation was per formed with the prescribed dosages and duration as above in the presence of an independent trained ra diology nurse to assist in the monitoring of the patient. EKG and oximetry remained stable throughou t the procedure. The patient tolerated the procedure well and there were no complications. The patient was sent to pos t anesthesia recovery in stable condition. CONCLUSION: Uncomplicated CT guided drainage, as above. Ady Jasmine MD on September 15, 2016 at 13:52 Board Certified Radiologist. This report was verified electronically.
--- NOTE | 2016-09-15 15:59 | HHI.PR ---
Subjective Subjective Notes DAILY PROGRESS NOTE FOR SURGICAL ATTENDING, DR. PAUL SETH Patient intensive care unit Had drainage placed by IR Patient says she feels better Objective Vitals/I&O Vital Signs Date Time Temp Pulse Resp B/P Pulse Ox O2 Delivery O2 Flow Rate FiO2 09/15/16 14:47 97.9 74 14 106/55 100 09/15/16 07:58 Nasal Cannula 2.00 Labs Laboratory Tests Test 09/14/16 09/14/16 09/14/16 09/14/16 17:10 17:45 18:40 23:40 Blood Type A POSITIVE Crossmatch Leukocyte-Reduced Red Blood Cells Blood Bank Comment Hemoglobin 6.4 Hematocrit 19.1 Erythrocyte Sedimentation Rate 17 Nasal Screen MRSA (PCR) MRSA NOT DETECTED Urine Color YELLOW Urine Turbidity CLEAR Urine pH 6.0 Urine Specific [place] 1.016 Urine Protein TRACE Urine Glucose (UA) 300 Urine Ketones TRACE Urine Occult Blood NEG Urine Nitrite NEG Urine Bilirubin NEG Urine Urobilinogen LESS THAN 2.0 Urine Leukocyte Esterase NEG Urine RBC LESS THAN 1 Urine WBC 3 Urine Squamous Epithelial <1 Cells Urine Hyaline Casts 1 Urine Mucus FEW Microscopic Urinalysis Comment CULT NOT INDICATED Test 09/15/16 09/15/16 09/15/16 09/15/16 00:45 03:53 07:26 10:39 Hemoglobin 8.7 8.0 Hematocrit 24.8 23.7 Sodium Level 142 Potassium Level 3.5 Chloride Level 106 Carbon Dioxide Level 26.8 Anion Gap 9 Blood Urea Nitrogen 16 Creatinine 1.07 Estimat Glomerular Filtration 52 Rate Random Glucose 189 Calcium Level 6.9 Protein Corrected Calcium 8.3 Total Bilirubin 0.7 Aspartate Amino Transf 13 (AST/SGOT) Alanine Aminotransferase 9 (ALT/SGPT) Alkaline Phosphatase 57 Total Protein 4.5 Albumin 1.5 Blood Type A POSITIVE Crossmatch Leukocyte-Reduced Red Blood Cells Blood Bank Comment Lactic Acid Level 1.5 Test 09/15/16 10:52 Hemoglobin 10.6 Hematocrit 31.6 Date/Time Procedure Status Source Growth 09/15/16 13:25 Gram Stain Received Abscess Abdomen Pending 09/15/16 13:25 Wound Culture Received Abscess Abdomen Pending Radiology Last Impressions Abscess Drainage CT 09/15/16 0000 Signed Impressions: Service Date/Time: Thursday, September 15, 2016 12:50 - CONCLUSION: Uncomplicated CT guided drainage, as above. Ady Jasmine MD Abdomen/Pelvis CT 09/14/16 1802 Signed Impressions: Service Date/Time: Wednesday, September 14, 2016 22:22 - CONCLUSION: 1. Perforation along the proximal duodenum with fluid collection of contrast and air measuring 9.1 x 2.5 cm. 2. Calcified leiomyoma. 3. Mild distention of the urinary bladder. Dr. Villalba notified of these findings. Will Pink MD Cardiovascular: Regular Lungs: Clear Abdomen: Other (a little sore in her abdomen drainage tube right side) Extremities: No edema, SCD's on A/P Assessment and Plan 60-year-old female with complicated medical history who has a contained chronic perforated duodenal ulcer successfully drained by IR Clinically she is improved Continue maximal medical therapy I will add Diflucan to cover for fungal infection Attending Statement NOTE FOR SURGICAL ATTENDING, DR. PAUL SETH I attest that I had a [id number] encounter with the patient on the same day, and personally performed and documented my assessment and findings in the medical record. The following services were provided during this hospital visit: Chart data review, vital sign assessments/reviewing monitor data Review of consultations notes if present. Medication orders/review and/or management Ordering and/or reviewing lab tests Ordering and/or interpreting/reviewing x-rays and/or diagnostic studies Care of the patient and discussion of the patient with the care team Documentation time To help prompt me to consider important information that might be impacting today's encounter and assessment, information from prior notes written by myself or my colleagues may have been "brought forward/copy and pasted" into today's note. Paul Seth MD Sep 15, 2016 15:59
[2016-09-15 17:32] LABS: REVIEW FLAG FINAL
[2016-09-15] MEDS: FLUCONAZOLE 400 MG PREMIX BAG 200 ML IV SCH (17:39)
[2016-09-15] MEDS: cefTRIAXone INJ 1,000 MG in SODIUM CHLORIDE 0.9% INJ 100 ML IV SCH (20:03)
[2016-09-15] MEDS: SODIUM CHLORIDE 0.9% 10 ML VIAL IRRIGATION SCH (20:07)
--- NOTE | 2016-09-15 21:53 | HHI.PR ---
Addendum to Inpatient Note Addendum Reason: Additional Documentation Additional Information Pt seen and examined. She reports that her pain is getting better and that she has been able to get some rest. She has not had any additional bowel movements since this morning. Nurse reports that this bowl movement was loose and green in color, non bloody. Exam: Vitals: BP: 95/55 T: 98.3 O2: 98% General: Patient resting comfortably in bed, in no acute distress. Abdomen: Soft, diffusely tender to palpation, pain is improved from prior exam. No rebound tenderness. + Bowel sounds A/P: Pt to inform nurse if there is any increase in abdominal pain Continue to monitor H&H, stable at this time Zak Weiss MD R2 Sep 15, 2016 21:53
[2016-09-15 23:12] LABS: HEMATOCRIT 32.5 % (35.0-46.0); REVIEW FLAG FINAL
[2016-09-16] VITALS (20 sets, daily range): BP systolic 119–151; BP diastolic 56–72; PULSE 76–116; RESP 15–27; TEMP 98.2–99.2; O2SAT 92–99
[2016-09-16] MEDS: MORPHINE SULFATE 4 MG/ML INJ IV PRN ×5 (04:09→19:58)
[2016-09-16] MEDS: SODIUM CHLOR 0.9% 1000 ML INJ 1,000 ML IV SCH ×2 (04:10→11:15)
[2016-09-16 05:07] LABS: BICARBONATE 23.3 MEQ/L (21.0-32.0); CALCIUM-PROTEIN CORRECTED 7.9 MG/DL (8.5-10.1); POTASSIUM 3.4 MEQ/L (3.5-5.1); TOTAL BILIRUBIN ADULT 0.6 MG/DL (0.2-1.0)
[2016-09-16] MEDS: INSULIN ASPART SUPPLEMENTAL SCALE SQ SCH ×4 (05:56→20:12)
[2016-09-16] MEDS: PANTOPRAZOLE INJ 80 MG in SODIUM CHLORIDE 0.9% INJ 100 ML IV SCH ×2 (05:56→16:57)
[2016-09-16 07:13] LABS: AUTOMATED NEUTROPHIL # 5.5 TH/MM3 (1.8-7.7); BASOPHIL # 0.1 TH/MM3 (0-0.2); BASOPHIL % 1.1 % (0.0-2.0); EOSINOPHIL # 0.1 TH/MM3 (0-0.4); EOSINOPHIL % 0.9 % (0.0-4.0); HEMATOCRIT 29.3 % (35.0-46.0); LYMPH % 20.3 % (9.0-44.0); LYMPHOCYTE # 1.6 TH/MM3 (1.0-4.8); MEAN CELL VOLUME 89.7 FL (80.0-100.0); MEAN CORPUSCULAR HGB CONC 33.4 % (32.0-36.0); MONO % 7.3 % (0.0-8.0); NEUT % 70.4 % (16.0-70.0); PLATELET COUNT 83 TH/MM3 (150-450); RED BLOOD COUNT 3.27 MIL/MM3 (4.00-5.30); WHITE BLOOD COUNT 7.8 TH/MM3 (4.0-11.0)
[2016-09-16] MEDS ORDERED: CALCIUM GLUCONATE INJ 1 GM in SODIUM CHLORIDE 0.9% INJ 100 ML IV ONE (08:00)
[2016-09-16 08:03] LABS: HEMO FLAGS AUTO DIFF
[2016-09-16 08:05] LABS: OVALOCYTES 1+ (NORMAL); PLATELET ESTIMATE SMEAR LOW (NORMAL); PLATELET MORPHOLOGY NORMAL (NORMAL); SCAN/DIFF AUTO DIFF CONFIRMED
[2016-09-16 08:19] LABS: MAGNESIUM 1.4 MG/DL (1.5-2.5)
[2016-09-16] MEDS: SODIUM CHLORIDE 0.9% 10 ML VIAL IRRIGATION SCH ×2 (09:00→19:58)
[2016-09-16] MEDS: FLUoxetine HCL 20 MG CAP PO SCH (09:00)
[2016-09-16] MEDS: SODIUM CHLORIDE 0.9% FLUSH 10 ML FLUSH IV FLUSH SCH ×2 (09:31→19:58)
[2016-09-16] MEDS: metroNIDAZOLE 500 MG INJ 100 ML IV SCH ×2 (09:31→15:26)
[2016-09-16] MEDS ORDERED: POTASSIUM PHOSPHATE MONOBASIC 500 MG TAB PO PRN (12:15)
[2016-09-16] MEDS ORDERED: POTASSIUM PHOSPHATE INJ 30 MMOL in SODIUM CHLOR 0.9% 250 ML INJ 250 ML IV PRN (12:15)
[2016-09-16] MEDS ORDERED: POTASSIUM CHLORIDE 25 MEQ EFFERVESCENT TAB PO PRN (12:15)
[2016-09-16] MEDS ORDERED: POTASSIUM PHOSPHATE MONOBASIC 500 MG TAB PO/TUBE PRN (12:15)
[2016-09-16] MEDS ORDERED: MAGNESIUM SULFATE INJ 4 GM in SODIUM CHLORIDE 0.9% INJ 92 ML IV PRN (12:15)
[2016-09-16] MEDS ORDERED: POTASSIUM CHLOR 40 MEQ PREMIX 100 ML IV PRN ×2 (12:15)
[2016-09-16] MEDS ORDERED: MAGNESIUM SULFATE INJ 2 GM in SODIUM CHLORIDE 0.9% INJ 96 ML IV PRN (12:15)
[2016-09-16] MEDS ORDERED: SODIUM PHOSPHATE INJ 30 MMOL in SODIUM CHLOR 0.9% 250 ML INJ 240 ML IV PRN (12:15)
[2016-09-16] MEDS: DEXT 5%-NACL 0.45% 1000 ML INJ 1,000 ML IV SCH ×2 (12:26→16:58)
--- NOTE | 2016-09-16 14:28 | HHI.PR ---
Subjective Subjective Notes Resting in bed No acute events overnight Objective Vitals/I&O Vital Signs Date Time Temp Pulse Resp B/P Pulse Ox O2 Delivery O2 Flow Rate FiO2 09/16/16 14:00 85 18 128/64 94 09/16/16 12:00 98.9 09/16/16 07:56 21 09/15/16 07:58 Nasal Cannula 2.00 Labs Laboratory Tests Test 09/15/16 09/15/16 09/16/16 09/16/16 16:50 22:22 03:24 04:59 Hemoglobin 9.9 10.7 9.8 Hematocrit 29.0 32.5 29.3 Sodium Level 141 Potassium Level 3.4 Chloride Level 108 Carbon Dioxide Level 23.3 Anion Gap 10 Blood Urea Nitrogen 15 Creatinine 0.95 Estimat Glomerular Filtration 60 Rate Random Glucose 138 Calcium Level 6.7 Protein Corrected Calcium 7.9 Phosphorus Level 2.6 Magnesium Level 1.4 Total Bilirubin 0.6 Aspartate Amino Transf 14 (AST/SGOT) Alanine Aminotransferase 11 (ALT/SGPT) Alkaline Phosphatase 64 Total Protein 4.7 Albumin 1.6 White Blood Count 7.8 Red Blood Count 3.27 Mean Corpuscular Volume 89.7 Mean Corpuscular Hemoglobin 30.0 Mean Corpuscular Hemoglobin 33.4 Concent Red Cell Distribution Width 16.0 Platelet Count 83 Mean Platelet Volume 9.1 Neutrophils (%) (Auto) 70.4 Lymphocytes (%) (Auto) 20.3 Monocytes (%) (Auto) 7.3 Eosinophils (%) (Auto) 0.9 Basophils (%) (Auto) 1.1 Neutrophils # (Auto) 5.5 Lymphocytes # (Auto) 1.6 Monocytes # (Auto) 0.6 Eosinophils # (Auto) 0.1 Basophils # (Auto) 0.1 CBC Comment AUTO DIFF Differential Comment AUTO DIFF CONFIRMED Platelet Estimate LOW Platelet Morphology Comment NORMAL Ovalocytes 1+ Hematology Comments Date/Time Procedure Status Source Growth 09/15/16 13:25 Gram Stain - Final Resulted Abscess Abdomen 09/15/16 13:25 Wound Culture - Preliminary Resulted Abscess Abdomen Radiology Last Impressions Abscess Drainage CT 09/15/16 0000 Signed Impressions: Service Date/Time: Thursday, September 15, 2016 12:50 - CONCLUSION: Uncomplicated CT guided drainage, as above. Ady Jasmine MD Abdomen/Pelvis CT 09/14/16 1802 Signed Impressions: Service Date/Time: Wednesday, September 14, 2016 22:22 - CONCLUSION: 1. Perforation along the proximal duodenum with fluid collection of contrast and air measuring 9.1 x 2.5 cm. 2. Calcified leiomyoma. 3. Mild distention of the urinary bladder. Dr. Villalba notified of these findings. Will Pink MD Cardiovascular: Regular Lungs: Clear Abdomen: Other (minimal tenderness at drain insertion sites; drain in place ) Extremities: No edema A/P Assessment and Plan 60-year-old female with complicated medical history who has a contained chronic perforated duodenal ulcer successfully drained by IR -Continue to monitor WBC/fevers -Continue antibiotics: Diflucan/Rocephin/Flagyl -Will follow cultures -PT -OOB Attending Note - Dr. Cisneros Abdomen remains benign with minimal discomfort Drainage is cloudy greenish The exam, history, and the medical decision-making described in the above note were completed with the assistance of the mid-level provider. I reviewed and agree with the findings presented. I attest that I had a [id number] encounter with the patient on the same day, and personally performed and documented my assessment and findings in the medical record. Siena Brooks Sep 16, 2016 14:28 Elliott Cisneros MD Sep 17, 2016 19:39
--- NOTE | 2016-09-16 15:16 | HHI.FPPN ---
Subjective Remarks Patient seen and examined this morning. Patient states that she continues to have abdominal pain, improved today. Pain is rated a 9/10, 10/10 yesterday. Patient believes that morphine is helping control her pain, however patient was seen immediately prior to subsequent morphine dose. No bowel movements for 2 days. No chest pain, shortness of breath, nausea, vomiting, fever, chills. Patient reports increased anxiety this morning, notes that Xanax has worked well to relieve her anxiety. No other complaints this morning. (Elliott Willingham MD R1) Objective Vitals Vital Signs Date Time Temp Pulse Resp B/P Pulse Ox O2 Delivery O2 Flow Rate FiO2 09/16/16 14:00 85 18 128/64 94 09/16/16 14:00 105 09/16/16 13:00 81 16 122/60 96 09/16/16 12:00 98.9 85 17 126/64 92 09/16/16 12:00 116 09/16/16 11:00 92 15 137/66 97 09/16/16 10:15 16 09/16/16 10:00 112 09/16/16 10:00 82 18 127/66 93 09/16/16 09:00 83 17 119/61 94 09/16/16 08:00 98.7 84 16 130/64 92 09/16/16 08:00 91 09/16/16 07:56 95 21 09/16/16 07:00 85 17 128/65 94 09/16/16 06:00 94 09/16/16 04:00 106 09/16/16 04:00 98.9 106 27 151/72 96 09/16/16 02:00 96 09/16/16 00:00 98.9 89 24 124/69 96 09/16/16 00:00 84 09/15/16 20:46 95 21 09/15/16 20:00 77 09/15/16 20:00 99.2 77 15 137/69 98 09/15/16 16:00 75 09/15/16 16:00 98.3 75 15 105/55 98 I/O 09/15/16 09/15/16 09/15/16 09/16/16 09/16/16 09/16/16 06:59 14:59 22:59 06:59 14:59 22:59 Intake Total 1053 ml 1064 ml 1171 ml 1029 ml Output Total 725 ml 275 ml 1175 ml 375 ml Balance 328 ml 789 ml -4 ml 654 ml Intake Oral 0 ml IV Total 1053 ml 714 ml 1171 ml 1029 ml Packed Cells 350 ml Output Urine Total 725 ml 275 ml 1175 ml 275 ml Gastric Drainage Total 0 ml 0 ml 0 ml Drainage Total 0 ml 100 ml # Bowel Movements 2 1 (Elliott Willingham MD R1) Result Diagram: 09/16/16 0459 09/16/16 0324 Imaging Last 48 hours Impressions Abscess Drainage CT 09/15/16 0000 Signed Impressions: Service Date/Time: Thursday, September 15, 2016 12:50 - CONCLUSION: Uncomplicated CT guided drainage, as above. Ady Jasmine MD Abdomen/Pelvis CT 09/14/16 1802 Signed Impressions: Service Date/Time: Wednesday, September 14, 2016 22:22 - CONCLUSION: 1. Perforation along the proximal duodenum with fluid collection of contrast and air measuring 9.1 x 2.5 cm. 2. Calcified leiomyoma. 3. Mild distention of the urinary bladder. Dr. Villalba notified of these findings. Will Pink MD Objective Remarks GENERAL: This is an elderly female lying comfortably in bed, no acute distress. NG tube in place. Became tearful at end of interview. SKIN: . Cool and dry. HEAD: Atraumatic. Normocephalic. EYES: Pupils equal round and reactive. Extraocular motions intact. No scleral icterus. No injection or drainage. NECK: Trachea midline. No JVD or lymphadenopathy. Supple, nontender. CARDIOVASCULAR: Regular rate and rhythm without murmurs, gallops, or rubs. RESPIRATORY: Clear to auscultation. Breath sounds equal bilaterally. No wheezes , rales, or rhonchi. GASTROINTESTINAL: Abdomen soft, tender to palpation in all 4 quadrants. Non- distended. No masses appreciated. BS+ MUSCULOSKELETAL: Lower extremities with 1+ edema bilaterally. No calf tenderness. NEUROLOGICAL: Awake and alert. Motor and sensory grossly within normal limits. Normal speech. Medications and IVs Current Medications Medications (Trade) Dose Ordered Sig/Ani Route Start Time Stop Time Status Last Admin (NS Flush) 2 ml UNSCH PRN IV FLUSH 09/14/16 12:30 09/14/16 14:06 Sodium Chloride 2 ml 2 ml BID IV FLUSH 09/14/16 21:00 09/16/16 09:31 (Protonix Inj/NS Inj) 100 ml @ 10 mls/hr Q10H IV 09/14/16 14:30 09/16/16 05:56 (Zofran Inj) 4 mg Q6H PRN IV 09/14/16 12:45 (Xanax) 1 mg Q8H PRN PO 09/14/16 12:45 (PROzac) 20 mg DAILY PO 09/15/16 09:00 09/15/16 09:22 (D50w (Vial) Inj) 50 ml UNSCH PRN IV 09/14/16 12:45 Glucagon 1 mg 1 mg UNSCH PRN OTHER 09/14/16 12:45 Metronidazole 100 ml @ 100 mls/hr Q8H IV 09/14/16 16:00 09/16/16 09:31 (Rocephin Inj/NS Inj) 100 ml @ 200 mls/hr Q24H IV 09/14/16 20:00 09/15/16 20:03 (Morphine Inj) 4 mg Q3H PRN IV 09/14/16 22:30 09/16/16 14:46 (Narcan Inj) 0.4 mg UNSCH PRN IV 09/14/16 22:30 Sodium Chloride 10 ml 10 ml BID IRRIGATION 09/15/16 21:00 09/16/16 09:00 Fluconazole/ Sodium Chloride 200 ml @ 100 mls/hr Q24H IV 09/15/16 17:00 09/15/16 17:39 Dextrose/Sodium Chloride 1,000 ml @ 150 mls/hr Q6H40M IV 09/16/16 12:15 09/16/16 12:26 Potassium Chloride 100 ml @ 50 mls/hr Q2H PRN IV 09/16/16 12:15 (KCl 20 Meq Premix Inj) 100 ml @ 50 mls/hr Q2H PRN IV 09/16/16 12:15 Potassium Bicarb/ Potassium Chloride 50 meq 50 meq UNSCH PRN PO 09/16/16 12:15 Potassium Chloride 100 ml @ 25 mls/hr UNSCH PRN IV 09/16/16 12:15 Potassium Chloride 100 ml @ 50 mls/hr Q2H PRN IV 09/16/16 12:15 (Magnesium Sulfate Inj/NS Inj) 100 ml @ 50 mls/hr UNSCH PRN IV 09/16/16 12:15 Magnesium Oxide 800 mg 800 mg UNSCH PRN PO 09/16/16 12:15 (Magnesium Sulfate Inj/NS Inj) 100 ml @ 50 mls/hr UNSCH PRN IV 09/16/16 12:15 Potassium Phosphate 2000 mg 2,000 mg Q4H PRN PO 09/16/16 12:15 (Sodium Phosphate Inj/NS 250 ml Inj) 250 ml @ 42 mls/hr UNSCH PRN IV 09/16/16 12:15 Potassium Phosphate 2000 mg 2,000 mg UNSCH PRN PO/TUBE 09/16/16 12:15 (Potassium Phosphate Inj/NS 250 ml Inj) 260 ml @ 42 mls/hr UNSCH PRN IV 09/16/16 12:15 (Ativan Inj) 1 mg Q8HR PRN IV PUSH 09/16/16 14:00 (Elliott Willingham MD R1) A/P Assessment and Plan This is a 60-year-old female with history of ulcerative colitis and ulcers, presents with severe anemia found to have perforated ulcer and abscess formation. Gastroenterology and colorectal surgery consulted. IR drainage completed 09/15, uncomplicated. Discharge Planning Pending clinical improvement (Elliott Willingham MD R1) Attending Attestation Patients case was dicussed in detail with resident medical team,examination performed, EMR reviewed, agree with Admission, Assessment and Plan, See Orders. (Bartolome Villegas MD) Problem List: (1) Perforated duodenal ulcer Status: Acute Plan: CT scan 09/14 demonstrates a perforation of the duodenum with an abnormal fluid collection with contrast anterior to the mesenteric vasculature measuring 9.12.5 cm with adjacent stranding in the mesentery. There is no free perforation into the abdominal cavity. Colorectal surgery, Dr. Cisneros, consulted Gastroenterology consult Continue antibiotics as below Nothing by mouth with NG tube to keep the stomach decompressed. Pain: IV Tylenol, morphine Continue Protonix drip If the patient deteriorates clinically, continues to bleed, surgical intervention would be required. (2) Abscess Status: Acute Plan: CT scan 09/14 shows 9.12.5 cm fluid collection anterior to the mesenteric vasculature with adjacent stranding in the mesentery. Colorectal surgery consulted IR drainage performed 09/15 without complication. (3) GI bleed Status: Acute Plan: From perforated ulcer, see above Gastroenterology consult Colorectal surgery consult Status post 4 units packed red blood cells Continue IV antibiotics per GI: Flagyl 500 IV every 8 hours, Rocephin 1 g IV every 24 hours Continue to monitor H&H Transfuse as needed (4) Depression with anxiety Status: Acute Plan: Continue fluoxetine IV Ativan prescribed today for anxiety (5) CAROL (acute kidney injury) Status: Acute Plan: Improved. Continue hydration and continue to monitor. (6) Diabetes Status: Acute Plan: History of chronic diabetes. On insulin at home. -Low dose sliding scale while inpatient (7) FEN Status: Acute Plan: Fluids: NS @ 150mls/hr Electrolytes: magnesium low today, ICU electrolyte set added Nutrition: NPO DVT ppx: chemoppx contraindicated, SCDs GI ppx: Protonix drip (Elliott Willingham MD R1) Problem Qualifiers (1) GI bleed: Qualified Code: K29.91 - Gastrointestinal hemorrhage associated with gastroduodenitis (2) Diabetes: Qualified Code: E11.9 - Type 2 diabetes mellitus without complication, with long-term current use of insulin Elliott Willingham MD R1 Sep 16, 2016 15:16 Bartolome Villegas MD Sep 16, 2016 18:44
[2016-09-16 16:37] LABS: MAGNESIUM 1.3 MG/DL (1.5-2.5)
[2016-09-16] MEDS: FLUCONAZOLE 400 MG PREMIX BAG 200 ML IV SCH (16:57)
[2016-09-16] MEDS: cefTRIAXone INJ 1,000 MG in SODIUM CHLORIDE 0.9% INJ 100 ML IV SCH (20:08)
[2016-09-16] MEDS: LORazepam 2 MG/ML VIAL IV PUSH PRN (21:53)
[2016-09-17] VITALS (21 sets, daily range): BP systolic 92–129; BP diastolic 56–72; PULSE 69–84; RESP 13–25; TEMP 98.2–98.9; O2SAT 93–100
[2016-09-17] MEDS: DEXT 5%-NACL 0.45% 1000 ML INJ 1,000 ML IV SCH ×4 (00:14→19:21)
[2016-09-17] MEDS: metroNIDAZOLE 500 MG INJ 100 ML IV SCH ×4 (00:14→23:20)
[2016-09-17] MEDS: PANTOPRAZOLE INJ 80 MG in SODIUM CHLORIDE 0.9% INJ 100 ML IV SCH ×3 (00:47→23:20)
[2016-09-17] MEDS: MORPHINE SULFATE 4 MG/ML INJ IV PRN ×5 (00:47→19:21)
[2016-09-17 06:50] LABS: HEMATOCRIT 30.1 % (35.0-46.0); MEAN CELL VOLUME 90.8 FL (80.0-100.0); MEAN CORPUSCULAR HEMOGLOBIN 30.4 PG (27.0-34.0); MEAN CORPUSCULAR HGB CONC 33.5 % (32.0-36.0); PLATELET COUNT 98 TH/MM3 (150-450); RED BLOOD COUNT 3.31 MIL/MM3 (4.00-5.30); RED CELL DISTRIBUTION WIDTH 16.1 % (11.6-17.2); WHITE BLOOD COUNT 7.3 TH/MM3 (4.0-11.0)
[2016-09-17] MEDS: INSULIN ASPART SUPPLEMENTAL SCALE SQ SCH ×4 (07:00→21:00)
[2016-09-17 07:06] LABS: REVIEW FLAG FINAL
[2016-09-17 07:30] LABS: BICARBONATE 25.2 MEQ/L (21.0-32.0); POTASSIUM 3.7 MEQ/L (3.5-5.1)
[2016-09-17 07:49] LABS: CALCIUM-PROTEIN CORRECTED 8.2 MG/DL (8.5-10.1)
[2016-09-17] MEDS: SODIUM CHLORIDE 0.9% FLUSH 10 ML FLUSH IV FLUSH SCH ×2 (08:26→19:21)
[2016-09-17] MEDS: FLUoxetine HCL 20 MG CAP PO SCH (08:26)
[2016-09-17] MEDS: SODIUM CHLORIDE 0.9% 10 ML VIAL IRRIGATION SCH ×2 (08:26→19:21)
--- NOTE | 2016-09-17 12:51 | HHI.GIFU ---
Subjective Remarks Patient is resting in bed, still with some abd pain, NGT to LIWS. Reports mild small amount of melena that could be old blood. (Roshni David) Objective Vitals I&O Vital Signs Date Time Temp Pulse Resp B/P Pulse Ox O2 Delivery O2 Flow Rate FiO2 09/17/16 09:28 97 21 09/17/16 06:00 78 09/17/16 04:00 98.8 79 16 113/59 97 09/17/16 04:00 79 09/17/16 02:00 78 09/17/16 00:00 98.9 75 25 115/56 96 09/17/16 00:00 75 09/16/16 22:00 76 09/16/16 20:00 82 09/16/16 20:00 99.2 82 15 127/66 99 09/16/16 19:55 96 21 09/16/16 18:00 79 09/16/16 18:00 79 16 121/56 94 09/16/16 17:00 80 17 129/61 99 09/16/16 16:00 83 09/16/16 16:00 98.2 83 15 131/63 97 09/16/16 15:00 81 15 124/63 95 09/16/16 14:51 16 09/16/16 14:00 85 18 128/64 94 09/16/16 14:00 84 09/16/16 13:00 81 16 122/60 96 I/O 09/16/16 09/16/16 09/16/16 09/17/16 09/17/16 09/17/16 06:59 14:59 22:59 06:59 14:59 22:59 Intake Total 1029 ml 1596 ml 1008 ml 1093 ml Output Total 375 ml 670 ml 310 ml 280 ml Balance 654 ml 926 ml 698 ml 813 ml Intake Oral 0 ml 0 ml IV Total 1029 ml 1596 ml 1008 ml 1093 ml Output Urine Total 275 ml 400 ml 250 ml 250 ml Stool Total 30 ml Gastric Drainage Total 0 ml 100 ml 40 ml 0 ml Drainage Total 100 ml 140 ml 20 ml 30 ml # Bowel Movements 1 0 0 Laboratory Laboratory Tests Test 09/16/16 09/17/16 14:48 04:50 Phosphorus Level 2.4 Magnesium Level 1.3 White Blood Count 7.3 Red Blood Count 3.31 Hemoglobin 10.1 Hematocrit 30.1 Mean Corpuscular Volume 90.8 Mean Corpuscular Hemoglobin 30.4 Mean Corpuscular Hemoglobin 33.5 Concent Red Cell Distribution Width 16.1 Platelet Count 98 Mean Platelet Volume 9.0 Sodium Level 140 Potassium Level 3.7 Chloride Level 107 Carbon Dioxide Level 25.2 Anion Gap 8 Blood Urea Nitrogen 10 Creatinine 0.91 Estimat Glomerular Filtration 63 Rate Random Glucose 171 Calcium Level 7.2 Protein Corrected Calcium 8.2 Total Protein 5.2 Date/Time Procedure Status Source Growth 09/15/16 13:25 Gram Stain - Final Resulted Abscess Abdomen 09/15/16 13:25 Wound Culture - Preliminary Resulted Abscess Abdomen Imaging Last Impressions Abscess Drainage CT 09/15/16 0000 Signed Impressions: Service Date/Time: Thursday, September 15, 2016 12:50 - CONCLUSION: Uncomplicated CT guided drainage, as above. Ady Jasmine MD Abdomen/Pelvis CT 09/14/16 1802 Signed Impressions: Service Date/Time: Wednesday, September 14, 2016 22:22 - CONCLUSION: 1. Perforation along the proximal duodenum with fluid collection of contrast and air measuring 9.1 x 2.5 cm. 2. Calcified leiomyoma. 3. Mild distention of the urinary bladder. Dr. Villalba notified of these findings. Will Pink MD Physical Exam HEENT: PERRLA, NGT in place. NECK: Neck is supple, no JVD, no lymphadenopathy. CHEST: CTA CARDIAC: RRR ABDOMEN: Soft, nondistended, nontender; no hepatosplenomegaly; bowel sounds x 4 quadrants, drain to the abd EXTREMITIES: No clubbing, cyanosis, or edema. SKIN: Normal; no rash; no jaundice. [employer]: No focal deficits; alert and oriented x 3. (Amawi,Kevinawhilda LESSON INSTRUCTOR) Assessment and Plan Plan ASSESSMENT: - Upper GIB, Melena in patient with recent large duodenal ulcer. Recent hospitalization EGD/Colonoscopy (08/26/16)------> Esophagus normal, Stomach: normal, Duodenum: large ulcerations in the distal bulb extending into the descending duodenum. Multiple possibly ischemic looking ulcers. Biopsies taken. Also could be crohns ulcers. Ileum normal, at 25cm. Rectum has appearance of ileal pouch. Two biopsies taken. Pathology focally ulcerated and necrotic small intestinal mucosal biopsies exhibiting features suggestive of ischemia, distorted small intestinal mucosal biopsies with acute inflammation, clinically J pouch biopsy. Abdomen/Pelvis CTA (08/26/16)-----> I see no evidence for mesenteric ischemia. Rpt EGD (08/31/16) --> copious cheesy material in mid to distal esophagus, biopsy taken possible luis, antral gastritis, and large deep ulcer in distal bulb at 12:00 position. Ulcer in descending duodenum appears improved, looks more like typical PUD now. Pathology revealed antral mucosa with mild active chronic gastritis, esophageal mucosa with acute esophagitis containing budding yeast and pseudohyphae in the superficial keratin layers, consistent with luis esophagitis. A GMS stain performed on block #2 is positive for these fungal organisms. She was treated with Protonix, Carafate, Diflucan, Canasa, and Xifaxan. She did better at home, but started having mid and lower abdominal cramping about a week ago and started having melena 2 days ago. HH on 09/03 was 8.6/26.3 and trended down to 4.5/14.2 on 09/14. HH today 10/16.7. S/P blood transfusions. NPO. Protonix Gtt. EGD 09/14/16-- 1. Gastritis antrum-biopsy, esophagitis distal esophagus- biopsy, duodenitis second and third portion of duodenum ulcer clean base duodenal bulb-communication with a cavitary area -looks old- biopsy, no active bleeding 2. Retroflexed views revealed a hiatal hernia. Biopsies pending. Abdomen/Pelvis CT 09/14/16--1. Perforation along the proximal duodenum with fluid collection of contrast and air measuring 9.1 x 2.5 cm. 2. Calcified leiomyoma. 3. Mild distention of the urinary bladder. Plan for drainage of abscess cavity by IR today. - Severe anemia secondary to acute blood loss. HH on 09/03 was 8.6/26.3 and today is 8/23.7. S/P blood transfusions. Protonix Gtt. - Recent large duodenal bulb ulcer. Protonix Gtt. - Luis Esophagitis. Diflucan, PPI, Carafate at home. She has been on Diflucan since 08/31. - Abnormal weight loss. 20 lb weight loss over 3 months. - Ulcerative colitis. Dx 1999. S/P Total Colectomy. Prednisone taper. - Leukocytosis/Fever/Lactic acid 2.7. WBC 14.6. - CAROL. Creat 1.07 - DM, Depression/Anxiety, Hyperlipidemia 09-17-16 no signs of bleeding, hgb today 10.1, NGT to LIWS. She rapports small amount of melena that could be a residual still with abd pain PLAN: - S/P Draining of Abscess by IR - NPO - Consider TPN - NGT for stomach decompression - Cont Protonix Gtt - Monitor HH - Transfuse as necessary - Further recommendations to follow based on results of above Patient seen and examined by Dr. Barreto and myself (Roshni David) Physician Comments Patient seen and examined Agree with above Continue with current supportive care Monitor labs (Thomas Barreto MD) Roshni David Sep 17, 2016 12:51 Thomas Barreto MD Sep 17, 2016 22:59
--- NOTE | 2016-09-17 14:52 | HHI.FPPN ---
Subjective Remarks Patient seen and examined this morning. Patient states that she continues to have abdominal pain, improved today. Pain is rated a 7/10, 9/10 yesterday. Patient believes that morphine is helping control her pain. Reported no bowel movement today. No chest pain, shortness of breath, nausea, vomiting, fever, chills. Patient reports her anxiety has improved following Ativan addition. No other complaints this morning. Objective Vitals Vital Signs Date Time Temp Pulse Resp B/P Pulse Ox O2 Delivery O2 Flow Rate FiO2 09/17/16 14:00 76 13 122/63 99 09/17/16 14:00 76 09/17/16 13:00 71 16 116/60 96 09/17/16 12:00 98.2 73 18 118/67 98 09/17/16 12:00 73 09/17/16 11:00 73 15 107/58 96 09/17/16 10:11 76 21 109/61 96 09/17/16 10:00 77 09/17/16 09:28 97 21 09/17/16 09:00 78 16 122/63 96 09/17/16 08:00 98.5 69 14 123/61 100 09/17/16 08:00 69 09/17/16 07:00 79 17 129/60 93 09/17/16 06:00 78 09/17/16 04:00 98.8 79 16 113/59 97 09/17/16 04:00 79 09/17/16 02:00 78 09/17/16 00:00 98.9 75 25 115/56 96 09/17/16 00:00 75 09/16/16 22:00 76 09/16/16 20:00 82 09/16/16 20:00 99.2 82 15 127/66 99 09/16/16 19:55 96 21 09/16/16 18:00 79 09/16/16 18:00 79 16 121/56 94 09/16/16 17:00 80 17 129/61 99 09/16/16 16:00 83 09/16/16 16:00 98.2 83 15 131/63 97 09/16/16 15:00 81 15 124/63 95 09/16/16 14:51 16 I/O 09/16/16 09/16/16 09/16/16 09/17/16 09/17/1617 06:59 14:59 22:59 06:59 14:59 22:59 Intake Total 1029 ml 1596 ml 1008 ml 1093 ml 1116 ml Output Total 375 ml 670 ml 310 ml 280 ml 175 ml Balance 654 ml 926 ml 698 ml 813 ml 941 ml Intake Oral 0 ml 0 ml 0 ml IV Total 1029 ml 1596 ml 1008 ml 1093 ml 1116 ml Output Urine Total 275 ml 400 ml 250 ml 250 ml 150 ml Stool Total 30 ml Gastric Drainage Total 0 ml 100 ml 40 ml 0 ml 0 ml Drainage Total 100 ml 140 ml 20 ml 30 ml 25 ml # Bowel Movements 1 0 0 0 Result Diagram: 09/17/1644909/17/16449 Objective Remarks GENERAL: This is an elderly female lying comfortably in bed, no acute distress. NG tube in place. SKIN: . Cool and dry. HEAD: Atraumatic. Normocephalic. EYES: Pupils equal round and reactive. Extraocular motions intact. No scleral icterus. No injection or drainage. NECK: Trachea midline. No JVD or lymphadenopathy. Supple, nontender. CARDIOVASCULAR: Regular rate and rhythm without murmurs, gallops, or rubs. RESPIRATORY: Clear to auscultation. Breath sounds equal bilaterally. No wheezes , rales, or rhonchi. GASTROINTESTINAL: Abdomen soft, tender to palpation in right upper quadrant. Non -distended. No rebound. No masses appreciated. BS+ but soft MUSCULOSKELETAL: Lower extremities with 1+ edema bilaterally. No calf tenderness. NEUROLOGICAL: Awake and alert. Motor and sensory grossly within normal limits. Normal speech. Medications and IVs Current Medications Medications (Trade) Dose Ordered Sig/Ani Route Start Time Stop Time Status Last Admin (NS Flush) 2 ml UNSCH PRN IV FLUSH 09/14/16 12:30 09/14/16 14:06 Sodium Chloride 2 ml 2 ml BID IV FLUSH 09/14/16 21:00 09/17/16 08:26 (Protonix Inj/NS Inj) 100 ml @ 10 mls/hr Q10H IV 09/14/16 14:30 09/17/16 11:44 (Zofran Inj) 4 mg Q6H PRN IV 09/14/16 12:45 (Xanax) 1 mg Q8H PRN PO 09/14/16 12:45 (PROzac) 20 mg DAILY PO 09/15/16 09:00 09/15/16 09:22 (D50w (Vial) Inj) 50 ml UNSCH PRN IV 09/14/16 12:45 Glucagon 1 mg 1 mg UNSCH PRN OTHER 09/14/16 12:45 Metronidazole 100 ml @ 100 mls/hr Q8H IV 09/14/16 16:00 09/17/16 08:27 (Rocephin Inj/NS Inj) 100 ml @ 200 mls/hr Q24H IV 09/14/16 20:00 09/16/16 20:08 (Morphine Inj) 4 mg Q3H PRN IV 09/14/16 22:30 09/17/16 12:03 (Narcan Inj) 0.4 mg UNSCH PRN IV 09/14/16 22:30 Sodium Chloride 10 ml 10 ml BID IRRIGATION 09/15/16 21:00 09/17/16 08:26 Fluconazole/ Sodium Chloride 200 ml @ 100 mls/hr Q24H IV 09/15/16 17:00 09/16/16 16:57 Dextrose/Sodium Chloride 1,000 ml @ 150 mls/hr Q6H40M IV 09/16/16 12:15 09/17/16 14:55 Potassium Chloride 100 ml @ 50 mls/hr Q2H PRN IV 09/16/16 12:15 (KCl 20 Meq Premix Inj) 100 ml @ 50 mls/hr Q2H PRN IV 09/16/16 12:15 Potassium Bicarb/ Potassium Chloride 50 meq 50 meq UNSCH PRN PO 09/16/16 12:15 Potassium Chloride 100 ml @ 25 mls/hr UNSCH PRN IV 09/16/16 12:15 Potassium Chloride 100 ml @ 50 mls/hr Q2H PRN IV 09/16/16 12:15 (Magnesium Sulfate Inj/NS Inj) 100 ml @ 50 mls/hr UNSCH PRN IV 09/16/16 12:15 Magnesium Oxide 800 mg 800 mg UNSCH PRN PO 09/16/16 12:15 (Magnesium Sulfate Inj/NS Inj) 100 ml @ 50 mls/hr UNSCH PRN IV 09/16/16 12:15 09/16/16 22:38 Potassium Phosphate 2000 mg 2,000 mg Q4H PRN PO 09/16/16 12:15 (Sodium Phosphate Inj/NS 250 ml Inj) 250 ml @ 42 mls/hr UNSCH PRN IV 09/16/16 12:15 Potassium Phosphate 2000 mg 2,000 mg UNSCH PRN PO/TUBE 09/16/16 12:15 (Potassium Phosphate Inj/NS 250 ml Inj) 260 ml @ 42 mls/hr UNSCH PRN IV 09/16/16 12:15 09/16/16 22:39 (Ativan Inj) 1 mg Q8HR PRN IV PUSH 09/16/16 14:00 09/16/16 21:53 A/P Assessment and Plan This is a 60-year-old female with history of ulcerative colitis and ulcers, presents with severe anemia found to have perforated ulcer and abscess formation. Gastroenterology and colorectal surgery consulted. IR drainage completed 09/15, uncomplicated. Discharge Planning Pending clinical improvement Problem List: (1) Perforated duodenal ulcer Status: Acute Plan: CT scan 09/14 demonstrates a perforation of the duodenum with an abnormal fluid collection with contrast anterior to the mesenteric vasculature measuring 9.12.5 cm with adjacent stranding in the mesentery. There is no free perforation into the abdominal cavity. Colorectal surgery, Dr. Cisneros, consulted Gastroenterology consult Continue antibiotics as below Nothing by mouth with NG tube to keep the stomach decompressed. Pain: IV Tylenol, morphine Continue Protonix drip If the patient deteriorates clinically, continues to bleed, surgical intervention would be required. (2) Abscess Status: Acute Plan: CT scan 09/14 shows 9.12.5 cm fluid collection anterior to the mesenteric vasculature with adjacent stranding in the mesentery. Colorectal surgery consulted IR drainage performed 09/15 without complication. (3) GI bleed Status: Acute Plan: From perforated ulcer, see above Gastroenterology consult Colorectal surgery consult Status post 4 units packed red blood cells Continue IV antibiotics per GI: Flagyl 500 IV every 8 hours, Rocephin 1 g IV every 24 hours Positive fungal growth in cultures Fluconazole 400 q24 Continue to monitor H&H Transfuse as needed (4) Depression with anxiety Status: Acute Plan: Continue fluoxetine IV Ativan prescribed today for anxiety (5) CAROL (acute kidney injury) Status: Acute Plan: Improved. Continue hydration and continue to monitor. (6) Diabetes Status: Acute Plan: History of chronic diabetes. On insulin at home. -Low dose sliding scale while inpatient (7) FEN Status: Acute Plan: Fluids: NS @ 150mls/hr Electrolytes: magnesium low today, ICU electrolyte set added Nutrition: NPO DVT ppx: chemoppx contraindicated, SCDs GI ppx: Protonix drip Remarks Called by patients nurse at 1342 for concerns of limited urine output. Nurse stated the patient had only voided 300 ml at that time for the day, 900 the day before. Nurse reported no change in patient overall status. No change in site or intensity of pain. No apparent respiratory distress. No urgency to void. Urine dark yellow. Patient chart reviewed and bladder scan ordered. Spoke again with patients nurse at 1530 regarding bladder scan results. He stated that there was limited urine, approximately 34 mls in the bladder. Catheter flushed well. Nurse reported that the patient did not appear in any distress at that time and did not appear to need to be seen urgently. Advised nurse I would see patient later in the day. Saw and examined patient shortly after 1600. Patient stated she was in no additional pain. Her pain oscillates throughout the day, however no significant change from the previous days. No migration of pain. No new chest pain, palpitations, shortness of breath, difficult breathing, cough, sputum production , urinary urgency, or other change from this morning. On examination breath sounds are clear bilaterally in front and back with no wheezes, crackles, rhonchi. Heart has normal rhythm and rate with no murmurs/gallops/rubs. Abdomen is tender to palpation in upper right quadrant. Guarding when approach top right quadrant, none when palpating others. Positive soft bowel sounds. No rebound tenderness. Overall, physical exam unchanged from this morning. Plan to add lasix 40 IV x 1, will follow up in the morning. Problem Qualifiers (1) GI bleed: Qualified Code: K29.91 - Gastrointestinal hemorrhage associated with gastroduodenitis (2) Diabetes: Qualified Code: E11.9 - Type 2 diabetes mellitus without complication, with long-term current use of insulin Elliott Willingham MD R1 Sep 17, 2016 14:52 Elliott Willingham MD R1 Sep 17, 2016 14:52
[2016-09-17] MEDS ORDERED: SODIUM CHLORID 0.9% 500 ML INJ 500 ML IV ONE (16:15)
[2016-09-17] MEDS: FLUCONAZOLE 400 MG PREMIX BAG 200 ML IV SCH (16:44)
[2016-09-17] MEDS: cefTRIAXone INJ 1,000 MG in SODIUM CHLORIDE 0.9% INJ 100 ML IV SCH (19:20)
[2016-09-17] MEDS: LORazepam 2 MG/ML VIAL IV PUSH PRN (21:36)
--- NOTE | 2016-09-17 23:08 | MB ---
cc: EREN VILLALBA MD DATE 09/14/2016 HISTORY OF PRESENT ILLNESS This is a 60-year-old with a history of ulcerative colitis who has had a previous subtotal colectomy with a SHARI anastomosis of the ileum to the sigmoid colon. This procedure was performed in 1999 at [facility] by Dr. Crowe. At that time the patient was also felt to have ischemia of the colon from the cecum to the sigmoid. It was not clear whether she had also had an embolus or thrombotic process at that time. 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 She states she did stop the Xarelto 2 weeks ago. She was admitted to hospital with significant anemia with a hemoglobin 4.5. She has a history of a duodenal ulcer treated 2 weeks prior. She was hospitalized at that time. Upper GI endoscopy identified deep ulcer in the duodenum at that time. Endoscopy was performed of the remaining rectum and ileum and she is felt to have mild colitis at that time. Since her last hospitalization she has been having loose stools and accidents and black stool. She denies nausea, vomiting. She underwent EGD today. Deep ulcer was identified again in the duodenum. There is question of a cavity associated with this ulcer. She has been on prednisone. PHYSICAL EXAMINATION GENERAL: On exam she is alert, weak and pale, tearful and anxious. LUNGS: Her respirations are normal. SKIN: Skin is warm and dry. ABDOMEN: Her abdomen is soft. There is some the some mild generalized tenderness to deep palpation. There are no peritoneal signs. RECTAL: Exam reveals green stool and no mass. LABORATORY Hemoglobin 4.5, white count 14,000, platelets 178. Chemistries are normal. ASSESSMENT Upper GI bleeding with a deep duodenal ulcer with possible associated walled off perforation. The patient has a history of ulcerative colitis and it is not fully clear whether this is actually Crohn's disease with duodenal involvement. PLAN CT scan the abdomen and pelvis with oral water-soluble contrast is pending to further evaluate the duodenal problem. She is being transfused. Recommend antibiotic treatment in addition. I recommend general surgery consultation in addition. Eren Villalba MD DM/EO /7:34 PM /10:54 PM ADRIENNE
[2016-09-18] VITALS (46 sets, daily range): BP systolic 114–181; BP diastolic 56–71; PULSE 70–106; RESP 12–22; TEMP 98.4–99.8; O2SAT 91–100
[2016-09-18 03:52] LABS: IGA SERUM 164 mg/dL (81-463); TISSUE TRANSGLUTAMINASE AB IGG ND U/mL (())
[2016-09-18] MEDS: DEXT 5%-NACL 0.45% 1000 ML INJ 1,000 ML IV SCH ×3 (05:08→17:35)
[2016-09-18] MEDS: MORPHINE SULFATE 4 MG/ML INJ IV PRN ×3 (05:24→23:53)
[2016-09-18] MEDS: INSULIN ASPART SUPPLEMENTAL SCALE SQ SCH ×4 (06:28→21:00)
[2016-09-18] MEDS ORDERED: FUROSEMIDE 40 MG/4 ML VIAL IV PUSH ONE (08:00)
[2016-09-18] MEDS: SODIUM CHLORIDE 0.9% 10 ML VIAL IRRIGATION SCH (09:00)
[2016-09-18] MEDS: FLUoxetine HCL 20 MG CAP PO SCH (09:00)
[2016-09-18] MEDS: PANTOPRAZOLE INJ 80 MG in SODIUM CHLORIDE 0.9% INJ 100 ML IV SCH (09:21)
[2016-09-18] MEDS: metroNIDAZOLE 500 MG INJ 100 ML IV SCH ×3 (09:22→23:54)
[2016-09-18] MEDS: SODIUM CHLORIDE 0.9% FLUSH 10 ML FLUSH IV FLUSH SCH (09:22)
--- NOTE | 2016-09-18 10:56 | HHI.PR ---
Subjective Subjective Notes Up to chair Pain better controlled today Happy to be OOB Objective Vitals/I&O Vital Signs Date Time Temp Pulse Resp B/P Pulse Ox O2 Delivery O2 Flow Rate FiO2 09/18/16 09:08 97 21 09/18/16 06:00 85 09/18/16 04:00 98.4 19 124/64 09/15/16 07:58 Nasal Cannula 2.00 Labs Date/Time Procedure Status Source Growth 09/15/16 13:25 Gram Stain - Final Resulted Abscess Abdomen 09/15/16 13:25 Wound Culture - Preliminary Resulted Gram Negative Dez Group D Enterococcus Radiology Last Impressions Abscess Drainage CT 09/15/16 0000 Signed Impressions: Service Date/Time: Thursday, September 15, 2016 12:50 - CONCLUSION: Uncomplicated CT guided drainage, as above. Ady Jasmine MD Abdomen/Pelvis CT 09/14/16 1802 Signed Impressions: Service Date/Time: Wednesday, September 14, 2016 22:22 - CONCLUSION: 1. Perforation along the proximal duodenum with fluid collection of contrast and air measuring 9.1 x 2.5 cm. 2. Calcified leiomyoma. 3. Mild distention of the urinary bladder. Dr. Villalba notified of these findings. Will Pink MD Cardiovascular: Regular Lungs: Clear Abdomen: Other (minimal tenderness at drain site; drain in place with purulent drainage in tubing and minimal drainage in collection bag ) Extremities: No edema Narrative Exam Khan with dark yellow urine A/P Assessment and Plan 60-year-old female with complicated medical history who has a contained chronic perforated duodenal ulcer successfully drained by IR -Continue to monitor WBC/fevers -Continue antibiotics: Diflucan/Rocephin/Flagyl -Will follow cultures -PT -OOB -Ice chips -Okay to transfer out of [facility] from standpoint Attending Note - Dr. Blayne Hsieh benign; minimal output from drain Patient to receive anticoagulation for DVT; will need to monitor Hb closely each day, as she arrived severely anemic The exam, history, and the medical decision-making described in the above note were completed with the assistance of the mid-level provider. I reviewed and agree with the findings presented. I attest that I had a [id number] encounter with the patient on the same day, and personally performed and documented my assessment and findings in the medical record. Siena Brooks Sep 18, 2016 10:56 Elliott Cisneros MD Sep 20, 2016 18:43
--- NOTE | 2016-09-18 12:09 | HHI.FPPN ---
Subjective Remarks Patient seen and examined this morning. Patient states that she continues to have abdominal pain which has improved today. Pain has not moved or changed in sensation. Pain is rated a 5/10 today, 7/10 yesterday. Patient believes that morphine is helping control her pain. Currently notes that she has some swelling in her legs and arms. She typically has some swelling at baseline, however this is an elevated amount. No chest pain, shortness of breath, nausea, vomiting, fever, chills. No current anxiety complaints. No other complaints this morning. Objective Vitals Vital Signs Date Time Temp Pulse Resp B/P Pulse Ox O2 Delivery O2 Flow Rate FiO2 09/18/16 09:08 97 21 09/18/16 06:00 85 09/18/16 04:00 98.4 75 19 124/64 98 09/18/16 04:00 75 09/18/16 02:00 78 09/18/16 00:00 79 09/18/16 00:00 98.6 79 19 117/60 98 09/17/16 23:28 98 21 09/17/16 22:00 81 09/17/16 20:00 98.8 81 19 123/66 96 09/17/16 20:00 81 09/17/16 18:00 84 09/17/16 18:00 84 20 92/72 98 09/17/16 17:00 82 18 124/65 99 09/17/16 16:00 78 09/17/16 16:00 98.7 78 13 129/58 99 09/17/16 15:00 74 14 126/63 100 09/17/16 14:00 76 13 122/63 99 09/17/16 14:00 76 09/17/16 13:00 71 16 116/60 96 I/O 09/17/16 09/17/16 09/17/16 09/18/16 09/18/16 09/18/16 07:00 15:00 23:00 07:00 15:00 23:00 Intake Total 1093 ml 1116 ml 1429 ml 1104 ml Output Total 280 ml 175 ml 205 ml 200 ml Balance 813 ml 941 ml 1224 ml 904 ml Intake Oral 0 ml IV Total 1093 ml 1116 ml 1429 ml 1104 ml Output Urine Total 250 ml 150 ml 200 ml 200 ml Gastric Drainage Total 0 ml 0 ml 0 ml 0 ml Drainage Total 30 ml 25 ml 5 ml 0 ml Bladder Scan Volume Amount 34 ml # Bowel Movements 0 0 0 0 Result Diagram: 09/17/1644909/17/16449 Objective Remarks GENERAL: This is an elderly female lying comfortably in bed, no acute distress. NG tube in place. SKIN: . Cool and dry. HEAD: Atraumatic. Normocephalic. EYES: Pupils equal round and reactive. Extraocular motions intact. No scleral icterus. No injection or drainage. NECK: Trachea midline. No JVD or lymphadenopathy. Supple, nontender. CARDIOVASCULAR: Regular rate and rhythm without murmurs, gallops, or rubs. RESPIRATORY: Clear to auscultation. Breath sounds equal bilaterally. No wheezes , rales, or rhonchi. GASTROINTESTINAL: Abdomen soft, tender to palpation in right upper quadrant. Non -distended. No rebound. No masses appreciated. BS+ but soft MUSCULOSKELETAL: Edema in upper and lower extremities, 3+ pitting. Mildly tender B/L. No erythema. No unilateral asymmetry. PT/DP pulses 2+ B/L NEUROLOGICAL: Awake and alert. Motor and sensory grossly within normal limits. Normal speech. Medications and IVs Current Medications Medications (Trade) Dose Ordered Sig/Ani Route Start Time Stop Time Status Last Admin (NS Flush) 2 ml UNSCH PRN IV FLUSH 09/14/16 12:30 09/14/16 14:06 Sodium Chloride 2 ml 2 ml BID IV FLUSH 09/14/16 21:00 09/18/16 09:22 (Protonix Inj/NS Inj) 100 ml @ 10 mls/hr Q10H IV 09/14/16 14:30 09/18/16 09:21 (Zofran Inj) 4 mg Q6H PRN IV 09/14/16 12:45 (Xanax) 1 mg Q8H PRN PO 09/14/16 12:45 (PROzac) 20 mg DAILY PO 09/15/16 09:00 09/15/16 09:22 (D50w (Vial) Inj) 50 ml UNSCH PRN IV 09/14/16 12:45 Glucagon 1 mg 1 mg UNSCH PRN OTHER 09/14/16 12:45 Metronidazole 100 ml @ 100 mls/hr Q8H IV 09/14/16 16:00 09/18/16 09:22 (Rocephin Inj/NS Inj) 100 ml @ 200 mls/hr Q24H IV 09/14/16 20:00 09/17/16 19:20 (Morphine Inj) 4 mg Q3H PRN IV 09/14/16 22:30 09/18/16 05:24 (Narcan Inj) 0.4 mg UNSCH PRN IV 09/14/16 22:30 Sodium Chloride 10 ml 10 ml BID IRRIGATION 09/15/16 21:00 09/18/16 09:00 Fluconazole/ Sodium Chloride 200 ml @ 100 mls/hr Q24H IV 09/15/16 17:00 09/17/16 16:44 Dextrose/Sodium Chloride 1,000 ml @ 150 mls/hr Q6H40M IV 09/16/16 12:15 09/18/16 09:23 Potassium Chloride 100 ml @ 50 mls/hr Q2H PRN IV 09/16/16 12:15 (KCl 20 Meq Premix Inj) 100 ml @ 50 mls/hr Q2H PRN IV 09/16/16 12:15 Potassium Bicarb/ Potassium Chloride 50 meq 50 meq UNSCH PRN PO 09/16/16 12:15 Potassium Chloride 100 ml @ 25 mls/hr UNSCH PRN IV 09/16/16 12:15 Potassium Chloride 100 ml @ 50 mls/hr Q2H PRN IV 09/16/16 12:15 (Magnesium Sulfate Inj/NS Inj) 100 ml @ 50 mls/hr UNSCH PRN IV 09/16/16 12:15 Magnesium Oxide 800 mg 800 mg UNSCH PRN PO 09/16/16 12:15 (Magnesium Sulfate Inj/NS Inj) 100 ml @ 50 mls/hr UNSCH PRN IV 09/16/16 12:15 09/16/16 22:38 Potassium Phosphate 2000 mg 2,000 mg Q4H PRN PO 09/16/16 12:15 (Sodium Phosphate Inj/NS 250 ml Inj) 250 ml @ 42 mls/hr UNSCH PRN IV 09/16/16 12:15 Potassium Phosphate 2000 mg 2,000 mg UNSCH PRN PO/TUBE 09/16/16 12:15 (Potassium Phosphate Inj/NS 250 ml Inj) 260 ml @ 42 mls/hr UNSCH PRN IV 09/16/16 12:15 09/16/16 22:39 (Ativan Inj) 1 mg Q8HR PRN IV PUSH 09/16/16 14:00 09/17/16 21:36 A/P Assessment and Plan This is a 60-year-old female with history of ulcerative colitis and ulcers, presents with severe anemia found to have perforated ulcer and abscess formation. Gastroenterology and colorectal surgery consulted. IR drainage completed 09/15, uncomplicated. Discharge Planning Pending clinical improvement Problem List: (1) Perforated duodenal ulcer Status: Acute Plan: CT scan 09/14 demonstrates a perforation of the duodenum with an abnormal fluid collection with contrast anterior to the mesenteric vasculature measuring 9.12.5 cm with adjacent stranding in the mesentery. There is no free perforation into the abdominal cavity. Colorectal surgery, Dr. Cisneros, consulted Gastroenterology consult Continue antibiotics as below Nothing by mouth with NG tube to keep the stomach decompressed. Pain: IV Tylenol, morphine Changed protonix drip to IV push due to difficulty obtaining a second peripheral IV. Alerted by nursing this drip would be incompatible with the antibiotics being run through the same line. If the patient deteriorates clinically, continues to bleed, surgical intervention would be required. (2) Abscess Status: Acute Plan: CT scan 09/14 shows 9.12.5 cm fluid collection anterior to the mesenteric vasculature with adjacent stranding in the mesentery. Colorectal surgery consulted IR drainage performed 09/15 without complication. (3) GI bleed Status: Acute Plan: From perforated ulcer, see above Gastroenterology consult Colorectal surgery consult Status post 4 units packed red blood cells Continue IV antibiotics per GI: Flagyl 500 IV every 8 hours, Rocephin 1 g IV every 24 hours Positive fungal growth in cultures Fluconazole 400 q24 Continue to monitor H&H Transfuse as needed (4) Hypoalbuminemia Status: Acute Plan: Albumin noted to be 1.6 on 09/16 in the afternoon - Will administer Albumin - F/U albumin (5) Depression with anxiety Status: Acute Plan: Continue fluoxetine IV Ativan for anxiety (6) CAROL (acute kidney injury) Status: Acute Plan: Improved. Continue hydration and continue to monitor. (7) Diabetes Status: Acute Plan: History of chronic diabetes. On insulin at home. -Low dose sliding scale while inpatient (8) FEN Status: Acute Plan: Fluids: NS @ 150mls/hr Electrolytes: magnesium low today, ICU electrolyte set added Nutrition: NPO DVT ppx: chemoppx contraindicated, SCDs GI ppx: Protonix drip Addendum Remarks Called by patient's nurse around 1225 and notified that one of the patient's peripheral IV's had infiltrated. Upon attempt to reinsert US guided PIV there were several B/L noncompressible veins noted. Order was placed for B/L upper extremity US. Problem Qualifiers (1) GI bleed: Qualified Code: K29.91 - Gastrointestinal hemorrhage associated with gastroduodenitis (2) Diabetes: Qualified Code: E11.9 - Type 2 diabetes mellitus without complication, with long-term current use of insulin Elliott Willingham MD R1 Sep 18, 2016 12:09
[2016-09-18 12:59] LABS: HEMATOCRIT 30.1 % (35.0-46.0); MEAN CELL VOLUME 90.8 FL (80.0-100.0); MEAN CORPUSCULAR HEMOGLOBIN 30.5 PG (27.0-34.0); MEAN CORPUSCULAR HGB CONC 33.6 % (32.0-36.0); PLATELET COUNT 157 TH/MM3 (150-450); RED BLOOD COUNT 3.32 MIL/MM3 (4.00-5.30); RED CELL DISTRIBUTION WIDTH 16.4 % (11.6-17.2); REVIEW FLAG FINAL; WHITE BLOOD COUNT 8.1 TH/MM3 (4.0-11.0)
[2016-09-18] MEDS ORDERED: ALBUMIN HUMAN 5% 25 GM/500 ML BOTTLE IV ONE (13:00)
[2016-09-18 13:28] LABS: BICARBONATE 25.5 MEQ/L (21.0-32.0); MAGNESIUM 1.4 MG/DL (1.5-2.5); POTASSIUM 3.7 MEQ/L (3.5-5.1)
[2016-09-18 13:40] LABS: CALCIUM-PROTEIN CORRECTED 8.3 MG/DL (8.5-10.1)
--- NOTE | 2016-09-18 13:54 | HHI.GIFU ---
Subjective Remarks Patient is resting in bed, some coffee ground out put noted in NGT, this is only in the tubing, hasn't reached the canister yet. No melena or hematochezia, she is having abd pain (Roshni David) Objective Vitals I&O Vital Signs Date Time Temp Pulse Resp B/P Pulse Ox O2 Delivery O2 Flow Rate FiO2 09/18/16 09:08 97 21 09/18/16 06:00 85 09/18/16 04:00 98.4 75 19 124/64 98 09/18/16 04:00 75 09/18/16 02:00 78 09/18/16 00:00 79 09/18/16 00:00 98.6 79 19 117/60 98 09/17/16 23:28 98 21 09/17/16 22:00 81 09/17/16 20:00 98.8 81 19 123/66 96 09/17/16 20:00 81 09/17/16 18:00 84 09/17/16 18:00 84 20 92/72 98 09/17/16 17:00 82 18 124/65 99 09/17/16 16:00 78 09/17/16 16:00 98.7 78 13 129/58 99 09/17/16 15:00 74 14 126/63 100 09/17/16 14:00 76 13 122/63 99 09/17/16 14:00 76 I/O 09/17/16 09/17/16 09/17/16 09/18/16 09/18/16 09/18/16 07:00 15:00 23:00 07:00 15:00 23:00 Intake Total 1093 ml 1116 ml 1429 ml 1104 ml Output Total 280 ml 175 ml 205 ml 200 ml Balance 813 ml 941 ml 1224 ml 904 ml Intake Oral 0 ml IV Total 1093 ml 1116 ml 1429 ml 1104 ml Output Urine Total 250 ml 150 ml 200 ml 200 ml Gastric Drainage Total 0 ml 0 ml 0 ml 0 ml Drainage Total 30 ml 25 ml 5 ml 0 ml Bladder Scan Volume Amount 34 ml # Bowel Movements 0 0 0 0 Laboratory Laboratory Tests Test 09/18/16 12:47 White Blood Count 8.1 Red Blood Count 3.32 Hemoglobin 10.1 Hematocrit 30.1 Mean Corpuscular Volume 90.8 Mean Corpuscular Hemoglobin 30.5 Mean Corpuscular Hemoglobin 33.6 Concent Red Cell Distribution Width 16.4 Platelet Count 157 Mean Platelet Volume 9.0 Sodium Level 139 Potassium Level 3.7 Chloride Level 105 Carbon Dioxide Level 25.5 Anion Gap 9 Blood Urea Nitrogen 6 Creatinine 0.97 Estimat Glomerular Filtration 58 Rate Random Glucose 214 Calcium Level 7.4 Protein Corrected Calcium 8.3 Phosphorus Level 1.9 Magnesium Level 1.4 Total Protein 5.4 Date/Time Procedure Status Source Growth 09/15/16 13:25 Gram Stain - Final Resulted Abscess Abdomen 09/15/16 13:25 Wound Culture - Preliminary Resulted Gram Negative Dez Group D Enterococcus Imaging Last Impressions Abscess Drainage CT 09/15/16 0000 Signed Impressions: Service Date/Time: Thursday, September 15, 2016 12:50 - CONCLUSION: Uncomplicated CT guided drainage, as above. Ady Jasmine MD Abdomen/Pelvis CT 09/14/16 1802 Signed Impressions: Service Date/Time: Wednesday, September 14, 2016 22:22 - CONCLUSION: 1. Perforation along the proximal duodenum with fluid collection of contrast and air measuring 9.1 x 2.5 cm. 2. Calcified leiomyoma. 3. Mild distention of the urinary bladder. Dr. Villalba notified of these findings. Will Pink MD Physical Exam HEENT: PERRLA, NGT in place. NECK: Neck is supple, no JVD, no lymphadenopathy. CHEST: CTA CARDIAC: RRR ABDOMEN: Soft, nondistended, nontender; no hepatosplenomegaly; bowel sounds x 4 quadrants, drain to the abd EXTREMITIES: No clubbing, cyanosis, or edema. SKIN: Normal; no rash; no jaundice. 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 (Roshni David INSTRUCTIONAL AIDE) Assessment and Plan Plan ASSESSMENT: - Upper GIB, Melena in patient with recent large duodenal ulcer. Recent hospitalization EGD/Colonoscopy (08/26/16)------> Esophagus normal, Stomach: normal, Duodenum: large ulcerations in the distal bulb extending into the descending duodenum. Multiple possibly ischemic looking ulcers. Biopsies taken. Also could be crohns ulcers. Ileum normal, at 25cm. Rectum has appearance of ileal pouch. Two biopsies taken. Pathology focally ulcerated and necrotic small intestinal mucosal biopsies exhibiting features suggestive of ischemia, distorted small intestinal mucosal biopsies with acute inflammation, clinically J pouch biopsy. Abdomen/Pelvis CTA (08/26/16)-----> I see no evidence for mesenteric ischemia. Rpt EGD (08/31/16) --> copious cheesy material in mid to distal esophagus, biopsy taken possible luis, antral gastritis, and large deep ulcer in distal bulb at 12:00 position. Ulcer in descending duodenum appears improved, looks more like typical PUD now. Pathology revealed antral mucosa with mild active chronic gastritis, esophageal mucosa with acute esophagitis containing budding yeast and pseudohyphae in the superficial keratin layers, consistent with luis esophagitis. A GMS stain performed on block #2 is positive for these fungal organisms. She was treated with Protonix, Carafate, Diflucan, Canasa, and Xifaxan. She did better at home, but started having mid and lower abdominal cramping about a week ago and started having melena 2 days ago. HH on 09/03 was 8.6/26.3 and trended down to 4.5/14.2 on 09/14. HH today 823.7. S/P blood transfusions. NPO. Protonix Gtt. EGD 09/14/16-- 1. Gastritis antrum-biopsy, esophagitis distal esophagus- biopsy, duodenitis second and third portion of duodenum ulcer clean base duodenal bulb-communication with a cavitary area -looks old- biopsy, no active bleeding 2. Retroflexed views revealed a hiatal hernia. Biopsies pending. Abdomen/Pelvis CT 09/14/16--1. Perforation along the proximal duodenum with fluid collection of contrast and air measuring 9.1 x 2.5 cm. 2. Calcified leiomyoma. 3. Mild distention of the urinary bladder. Plan for drainage of abscess cavity by IR today. - Severe anemia secondary to acute blood loss. HH on 09/03 was 8.6/26.3 and today is 8/23.7. S/P blood transfusions. Protonix Gtt. - Recent large duodenal bulb ulcer. Protonix Gtt. - Luis Esophagitis. Diflucan, PPI, Carafate at home. She has been on Diflucan since 08/31. - Abnormal weight loss. 20 lb weight loss over 3 months. - Ulcerative colitis. Dx 1999. S/P Total Colectomy. Prednisone taper. - Leukocytosis/Fever/Lactic acid 2.7. WBC 14.6. - CAROL. Creat 1.07 - DM, Depression/Anxiety, Hyperlipidemia 09-17-16 no signs of bleeding, hgb today 10.1, NGT to LIWS. She rapports small amount of melena that could be a residual still with abd pain 09-18-16 some coffee ground out put noted in NGT, this is only in the tubing, hasn't reached the canister yet. No melena or hematochezia, she is having abd pain H&H stable PLAN: - S/P Draining of Abscess by IR - NPO - Consider TPN - NGT for stomach decompression - Cont. abx - Cont Protonix Gtt - Monitor HH - Transfuse as necessary - GS, CRS on the case - Further recommendations to follow based on results of above Patient seen and examined by Dr. Barreto and myself (Roshni David) Physician Comments Patient seen and examined Agree with above Continue with current supportive care Monitor labs (Thomas Barreto MD) Roshni David Sep 18, 2016 13:54 Thomas Barreto MD Sep 18, 2016 21:24
[2016-09-18] MEDS: PANTOPRAZOLE SODIUM 40 MG VIAL IV PUSH SCH (14:00)
--- NOTE | 2016-09-18 14:14 | RADRPT ---
EXAM DATE/TIME: 09/18/2016 13:11 This report includes an Addendum and supersedes previous reports for this exam. [facility] COMPARISON: No previous studies available for comparison. INDICATIONS : Bilateral arm edema. MEDICAL HISTORY : Hypercholesterolemia. Osteoarthritis. Cataracts. Chest pain. DVT. GERD. Colitis. Ulcer. Irritable maye wel. UTI. Diabetes. Bipolar disorder. Depression. Anxiety. MRSA. Anticoagulant therapy, Xarelto. SURGICAL HISTORY : Tubal ligation.Hysterectomy. Large intestine removed. Right third digit amputated. Dilation of esopha konstantin. Blood transfusions. ENCOUNTER: Initial ACUITY: 1 day PAIN SCORE: 6/10 LOCATION: Bilateral arm. FINDINGS: RIGHT UPPER EXTREMITY: There is extensive venous thrombosis seen in the forearm extending through the axillary vein involvin g both the deep and superficial cephalic vein. LEFT UPPER EXTREMITY: There is spontaneous flow documented in the brachial, basilic, cephalic, axillary, and subclavian vei ns. The vessels are compressible and augmentation response is documented. No filling defects are se en. The flow is phasic with respiration. Direction of flow in the jugular vein is caudal. CONCLUSION: 1. Extensive deep venous thrombosis and superficial thrombosis left upper extremity. Pee Mcclure MD FACR on September 18, 2016 at 14:11 Board Certified Radiologist. This report was verified electronically. ADDENDUM: The above conclusion should read that there is deep venous thrombosis in the right upper extremity. Hemanth Tapia MD on September 24, 2016 at 17:58 Board Certified Radiologist. This report was verified electronically.
[2016-09-18 15:05] LABS: INTERNATIONAL NORMALIZED RATIO 1.3 RATIO; PROTHROMBIN TIME - PATIENT 14.9 SEC (9.8-11.6)
[2016-09-18] MEDS: FLUCONAZOLE 400 MG PREMIX BAG 200 ML IV SCH ×2 (17:00→23:54)
--- NOTE | 2016-09-18 17:28 | RADRPT ---
EXAM DATE/TIME: 09/18/2016 16:21 [facility] COMPARISON: No previous studies available for comparison. INDICATIONS : Bilateral leg pain. MEDICAL HISTORY: Hypercholesterolemia. Gastroesophageal reflux disease. Deep vein thrombosis. Colitis. Ulcer. Oste oarthritis. Diabetes. Depression. Bipolar disorder. Blood transfusion. SURGICAL HISTORY: Tubal ligation. Hysterectomy. Large intestine removed. Right hand amputated. Dilatation of esophagu s. ENCOUNTER: Initial ACUITY: 1 day PAIN SCORE: 8/10 LOCATION: Bilateral legs. TECHNIQUE: Venous ultrasound of the left and right leg was performed from the inguinal ligament to the proximal calf. Real-time, color Doppler and spectral tracing, compression and augmentation techniques were us ed. FINDINGS: Nonocclusive deep venous thrombosis is noted within the right mid superficial femoral vein and within the right greater saphenous vein. Occlusive deep venous thrombosis is noted within the right loss prevention coordinator ior tibial veins. There is nonocclusive deep venous thrombosis within the left popliteal vein and oc clusive deep venous thrombosis within the left peroneal vein. CONCLUSION: Bilateral lower extremity deep venous thrombosis with nonocclusive thrombus within the right mid supe rficial femoral vein and right greater saphenous vein as well as left popliteal vein and occlusive DV T within the right posterior tibial and left peroneal veins. Nahun Bray MD on September 18, 2016 at 17:20 Board Certified Radiologist. This report was verified electronically.
--- NOTE | 2016-09-18 19:07 | PD.CONS ---
[facility] Service Critical Care Medicine Consult Requested By Family medicine Reason for Consult Prothrombotic state in the setting of acute blood loss anemia Primary Care Physician Jadyn Weiss MD History of Present Illness This is a 60-year-old female admitted earlier in the week or acute blood loss symptomatic anemia. The patient had multiple imaging and laboratory studies which revealed a large duodenal ulcer. GI was consulted and interventions performed, Dr. Gutierrez. The patient was noted also to have Marcy esophagitis and chronic gastritis. The patient has a history of ulcerative colitis and is status post a subtotal colectomy with anastomosis 1999. Her medical history is significant for episodes of ischemia and a prothrombotic state, with a history of DVT in the past, and the patient was on Xarelto at home which she start stop taking approximately 2 weeks ago. The patient over the last day or so complain of bilateral leg pain. Ultrasound Doppler imaging was performed which revealed nonocclusive and occlusive DVTs. Hematology/oncology has been consulted. Critical care medicine was consulted. Review of Systems ROS Limitations: Clinical Condition Past Family Social History Allergies: Coded Allergies: No Known Allergies (Verified , 08/23/16) Physical Exam Vital Signs Vital Signs Date Time Temp Pulse Resp B/P Pulse Ox O2 Delivery O2 Flow Rate FiO2 09/18/16 16:45 97 21 09/18/16 09:08 97 21 09/18/16 06:00 85 09/18/16 04:00 98.4 75 19 124/64 98 09/18/16 04:00 75 09/18/16 02:00 78 09/18/16 00:00 79 09/18/16 00:00 98.6 79 19 117/60 98 09/17/16 23:28 98 21 09/17/16 22:00 81 09/17/16 20:00 98.8 81 19 123/66 96 09/17/16 20:00 81 Laboratory Laboratory Tests Test 09/18/16 09/18/16 12:47 14:42 White Blood Count 8.1 Red Blood Count 3.32 Hemoglobin 10.1 Hematocrit 30.1 Mean Corpuscular Volume 90.8 Mean Corpuscular Hemoglobin 30.5 Mean Corpuscular Hemoglobin 33.6 Concent Red Cell Distribution Width 16.4 Platelet Count 157 Mean Platelet Volume 9.0 Sodium Level 139 Potassium Level 3.7 Chloride Level 105 Carbon Dioxide Level 25.5 Anion Gap 9 Blood Urea Nitrogen 6 Creatinine 0.97 Estimat Glomerular Filtration 58 Rate Random Glucose 214 Calcium Level 7.4 Protein Corrected Calcium 8.3 Phosphorus Level 1.9 Magnesium Level 1.4 Total Protein 5.4 Prothrombin Time 14.9 Prothromb Time International 1.3 Ratio Activated Partial 26.0 Thromboplast Time Date/Time Procedure Status Source Growth 09/15/16 13:25 Gram Stain - Final Resulted Abscess Abdomen 09/15/16 13:25 Wound Culture - Preliminary Resulted Gram Negative Dez Group D Enterococcus Result Diagram: 09/18/16 1247 09/18/16 1247 Imaging Last Impressions Upper Extremity Ultrasound 09/18/16 0000 Signed Impressions: Service Date/Time: Sunday, September 18, 2016 13:11 - CONCLUSION: 1. Extensive deep venous thrombosis and superficial thrombosis left upper extremity. Pee Mcclure MD FACR Abscess Drainage CT 09/15/16 0000 Signed Impressions: Service Date/Time: Thursday, September 15, 2016 12:50 - CONCLUSION: Uncomplicated CT guided drainage, as above. Ady Jasmine MD Abdomen/Pelvis CT 09/14/16 1802 Signed Impressions: Service Date/Time: Wednesday, September 14, 2016 22:22 - CONCLUSION: 1. Perforation along the proximal duodenum with fluid collection of contrast and air measuring 9.1 x 2.5 cm. 2. Calcified leiomyoma. 3. Mild distention of the urinary bladder. Dr. Villalba notified of these findings. Will Pink MD Course GENERAL: Well-developed obese female, looking older than stated age, anxious crying regarding concern for DVTs SKIN: Warm and dry. HEAD: Atraumatic. Normocephalic. EYES: Pupils equal and round. No scleral icterus. No injection or drainage. ENT: No nasal bleeding or discharge. Mucous membranes pink and moist. NECK: Trachea midline. No JVD. CARDIOVASCULAR: Normal rate, regular rhythm. RESPIRATORY: No accessory muscle use. Clear to auscultation. Breath sounds equal bilaterally. GASTROINTESTINAL: Abdomen soft, non-tender, nondistended. No guarding. MUSCULOSKELETAL: Extremities without clubbing, cyanosis, or edema. No obvious deformities. Amputation noted of third digit, right hand NEUROLOGICAL: Awake and alert. RASS 0. No gross focal/sensory deficits. Follows commands in all 4 extremities. Septic Shock Reassessment Heart: Regular rate and rhythm Lungs: Clear Skin: Warm Peripheral Pulses: Bounding Right Radial Bounding Left Radial Capillary Refill: Brisk Assessment and Plan Assessment and Plan Assessment Prothrombotic state Duodenal ulceration Chronic gastritis Ulcerative colitis Marcy esophagitis Acute blood loss anemia CAROL secondary to acute blood loss anemia DVT bilateral upper and lower extremities GERD Bipolar disorder Diabetes mellitus Hyperlipidemia Plan by systems: Neurologic: -Ativan 1 mg PO now -Resume every 4 hours when necessary for anxiety, upon obtaining vascular access -Consider Ofirmev 1 g every 6 hours when necessary 4 doses -For insomnia consider melatonin 5 mg by mouth daily at bedtime when necessary Respiratory: -No acute issues -Maintain O2 sat greater than 92% -Apply incentive spirometry, every hour while awake Cardiovascular: -Maintain MAP greater than 65 mmHg -Obtain vascular access will central line will be required, a peripheral venous access available Renal: [ ] -- Strict I/Os FEN/GI: -Percutaneous drain monitor output -GI following Dr. Gutierrez, continue to follow recommendations Heme/ID: -Hematology consulted- Dr. Branch, follow-up recommendations -Monitor coagulation studies Endocrine: Glucose monitoring per ICU protocol. Low dose regimen -- SSI Prophylaxis: GI Prophylaxis Per GI recommendations DVT Prophylaxis-bilateral lower DVTs, occlusive and nonocclusive -- SCDs Anticoagulation per hematology/GI/and general surgery combined recommendations Lines: Plan for central line placement Dispo: Level 3 Code Status Full Discussed Condition With Dr. Ham, ORCHESTRA TEACHER at bedside and patient. All questions answered. Traci Dang MD Sep 18, 2016 19:07
[2016-09-18] MEDS ORDERED: HYDROmorphone HCL PF 1 MG/ML VIAL SQ ONE (20:00)
[2016-09-18] MEDS ORDERED: LORazepam 1 MG TAB PO ONE ×2 (20:00)
[2016-09-18] MEDS ORDERED: LORazepam 1 MG TAB PO SCH (20:15)
[2016-09-18] MEDS ORDERED: HYDROmorphone HCL PF 1 MG/ML VIAL SQ SCH (20:15)
[2016-09-18 20:46] LABS: TRANSFERRIN IRON PROFILE 106 MG/DL (200-360)
[2016-09-18 21:11] LABS: FERRITIN 154 NG/ML (8-252)
[2016-09-18] MEDS ORDERED: LIDOCAINE HCL 1% 50 ML VIAL ONE (22:42)
--- NOTE | 2016-09-18 23:11 | PD.PROCEDR ---
Procedure Note Procedure Centerline placement A time-out was completed verifying correct patient, procedure, site, positioning , and special equipment if applicable. The patient was placed in a dependent position appropriate for central line placement based on the vein to be cannulated. The patients left neck was prepped and draped in sterile fashion. 1 % Lidocaine was used to anesthetize the surrounding skin area. A triple lumen 9 Polish Cordis catheter was introduced into the the internal jugular vein using the Seldinger technique and under ultrasound guidance. The catheter was threaded smoothly over the guide wire and appropriate blood return was obtained. Each lumen of the catheter was evacuated of air and flushed with sterile saline. The catheter was then sutured in place to the skin and a sterile dressing applied. Perfusion to the extremity distal to the point of catheter insertion was checked and found to be adequate. Estimated Blood Loss: 1ml The patient tolerated the procedure well and there were no complications. Robert Mon MD Sep 18, 2016 23:11
--- NOTE | 2016-09-18 23:33 | RADRPT ---
EXAM DATE/TIME: 09/18/2016 23:03 [place] COMPARISON: No previous studies available for comparison. INDICATIONS : Central line placement. MEDICAL HISTORY : Hypercholesterolemia. Gastroesophageal reflux disease. Deep vein thrombosis. Diabetes. Colitis. SURGICAL HISTORY : Tubal ligation. Hysterectomy. Large intestine removed. ENCOUNTER: Initial ACUITY: 1 day PAIN SCORE: Non-responsive. LOCATION: Bilateral chest FINDINGS: AP view of the chest demonstrates a normal-sized cardiac silhouette. Nasogastric tube is present and courses beyond the GE junction. Left IJ central line is present and extends into the left axillary ve in. There is an opacity at the left lung base obscuring the left hemidiaphragm. No pneumothorax is id entified. Bones demonstrate no acute finding. CONCLUSION: 1. Abnormal position of the left IJ line with distal tip in the left axillary vein. 2. Left basilar opacity most likely representing either atelectasis or consolidation. Angel Perez MD on September 18, 2016 at 23:30 Board Certified Radiologist. This report was verified electronically.
[2016-09-18] MEDS: LORazepam 2 MG/ML VIAL IV PUSH PRN (23:53)
[2016-09-18] MEDS: HEPARIN-D5W INJ 250 ML IV SCH (23:55)
[2016-09-19] VITALS (40 sets, daily range): BP systolic 107–138; BP diastolic 55–65; PULSE 67–97; RESP 12–28; TEMP 98.2–99.7; O2SAT 94–100
[2016-09-19 05:15] LABS: HEMATOCRIT 26.8 % (35.0-46.0); MEAN CELL VOLUME 88.3 FL (80.0-100.0); MEAN CORPUSCULAR HGB CONC 33.9 % (32.0-36.0); PLATELET COUNT 157 TH/MM3 (150-450); RED BLOOD COUNT 3.04 MIL/MM3 (4.00-5.30); RED CELL DISTRIBUTION WIDTH 15.8 % (11.6-17.2); REVIEW FLAG FINAL; WHITE BLOOD COUNT 7.4 TH/MM3 (4.0-11.0)
[2016-09-19 05:56] LABS: BICARBONATE 27.3 MEQ/L (21.0-32.0); POTASSIUM 3.3 MEQ/L (3.5-5.1)
[2016-09-19 06:16] LABS: CALCIUM-PROTEIN CORRECTED 8.4 MG/DL (8.5-10.1)
--- NOTE | 2016-09-19 06:23 | MB ---
cc: JERMAN BROWN M.D. DATE OF 1955 DATE OF SERVICE 09/18/[address] Weiss CHIEF COMPLAINT Dr. Weiss requested consultation for Ms. Lester regarding bilateral upper extremity and lower extremity deep vein thromboses shortly after a diagnosis of the GI bleed from a duodenal ulcer. HISTORY OF PRESENT ILLNESS Ms. Lester is a 60-year-old woman with history of ulcerative colitis, diabetes, recurrent deep vein thromboses. She is on chronic anticoagulant therapy with new oral anticoagulant. She developed dark stools for several days. She had been having diarrhea. She presented to the emergency room with two episodes of dark stool on 09/14/2016. She has had weakness and fatigue and periumbilical pain. She had a previous hospitalization 11 days previous with duodenal ulcer. She has not been on Xarelto. Her hemoglobin on admission was 4.5. She was seen in consultation by Dr. Elliott Cisneros who recommended conservative management. Imaging study CT scan of the abdomen and pelvis shows perforation of the proximal duodenum with fluid collection and contrast measuring 9.[address]-guided drainage was placed on 09/15/2016. She continued with conservative management, her drains being managed by Interventional Radiology. On the day of the consultation there was some coffee-ground output in the NG tube but only in the tubing. There is no melena or hematochezia. She is having abdominal pain. Her H&H was stable. She has been kept off anticoagulant therapy during this time. Ultrasound of the upper extremity because of swelling was performed. The right upper extremity shows extensive venous thromboses seen in the forearm extending through the axillary vein involving both the deep and superficial cephalic vein. The left upper extremity shows spontaneous flow. Doppler ultrasound performed of the lower extremities; it showed bilateral lower extremity deep vein thromboses. More specifically, there is nonocclusive deep vein thromboses in the right mid-superficial femoral vein and the right greater saphenous vein. There is occlusive deep vein thrombosis in the right posterior tibial vein. There is nonocclusive thromboses of the left popliteal. Occlusive thrombus is noted in the left peroneal vein. Hematology/Oncology is consulted regarding recommendations of anticoagulant therapy in light of the above. PAST MEDICAL HISTORY 1. Ulcerative colitis. 2. Duodenal ulcer. 3. Marcy esophagitis. 4. Diabetes. 5. Depression. 6. Anxiety. 7. Hyperlipidemia. 8. Recurrent venous thromboembolic event. PAST SURGICAL HISTORY 1. EGD. 2. Colonoscopy. 3. Total colectomy. 4. Tubal ligation. 5. Percutaneous drain placement. FAMILY HISTORY Significant for father with recurrent deep vein thromboses. He of [place] at [facility] in his 60s. Mother also had thrombotic events. SOCIAL HISTORY She denies any current tobacco, alcohol or illicit drug use. She has used marijuana in the past. PHYSICAL EXAMINATION VITAL SIGNS: Temperature 99.8, heart rate 81, respiratory rate 19, blood pressure 121/58, saturation 97%. GENERAL: Ms. Lester and is an anxious-appearing obese woman in no acute distress. HEENT: Her pupils are round, reactive to light and accommodation. Oropharynx is clear. NG tube in the left naris noted. LUNGS: Clear to auscultation. CARDIOVASCULAR EXAM: Normal rate and rhythm. ABDOMEN: Distended, benign. LOWER EXTREMITIES: Large legs, chronic venous changes in the lower leg, more prominently in the right versus the left. Good pulses are noted. UPPER EXTREMITIES: Large but no slightly more swelling in the right compared to the left. LABORATORY DATA Significant for a hemoglobin of 10.1, platelet count 157, platelet count mimi to 98. White blood cell count is normal. Chemistry: A normal BUN and creatinine. Iron studies are pending. She has iron deficiency back in 2001. ASSESSMENT AND PLAN Ms. Lester is a 60-year-old woman with multiple medical problems. She has a history upper GI bleed, melena secondary to a large duodenal ulcer. Her recent hospitalization and endoscopic procedure on 08/26/2016 shows a large ulceration in the distal bulb of the duodenum into the descending duodenum. There are multiple ischemic-looking ulcers. She is admitted with abdominal pain, severe anemia and bleeding secondary to the duodenal ulcer. She is conservatively managed. She has been her anticoagulant therapy. Hematology/Oncology is consulted because of newly diagnosed extensive right upper extremity deep vein thromboses and bilateral lower extremity deep vein thromboses, some of which are chronic. I had a lengthy discussion with Ms. Lester of her competing needs. On the one hand her anticoagulant therapy needs to be placed on hold which it had been because of her recent GI bleed. However, in light of the new upper extremity deep vein thromboses as well as the acute on chronic deep vein thromboses of the lower extremity, she needs to be on anticoagulant therapy. We discussed compromise of placing her on unfractionated heparin which is an anticoagulant that could be readily reversed, has a short half-life given in the infusional setting. I recommend anticoagulant therapy that could be reversed given her recent GI bleed. She seems to be improved. We will need to monitor the significance of the coffee-ground that was seen in the tubing. Her hemoglobin appears to be stable. It suggests that she is no longer actively bleeding. We discussed her recurrent thrombotic events. She reports initial clot was in the right lower extremity. She has had thromboses in the abdomen . She has had other clots. She has significant family history of deep vein thromboses. She reports a thrombophilia evaluation was performed. There is hereditary predisposition and names it Factor V Leiden. Review of her hypercoagulable panel in 2003 showed heterozygosity for Factor V Leiden. Prothrombin G mutation is normal. Anticardiolipin IgG antibody was positive. Protein C, protein S is normal. There is persistence of the anticardiolipin IgA antibody on repeat April 24, 2005. We discussed that regardless of her thrombophilic risk factors, she is in need of anticoagulant therapy. However, this is weighed against the fact that she has had a recent GI bleed. The risks and benefits of her treatment were discussed. The case was discussed with her nurse and the certified pedorthotist. We discussed the option of inferior vena cava filter placement which in the current setting may not be helpful. I suspect that she would thrombose an inferior vena cava filter and would shortly lose his usefulness. She has no absolute contraindication for anticoagulant therapy at present. We discussed trying placement of a central line and the administration of titrated unfractionated heparin. For this she was agreeable. Her questions were answered to her satisfaction. MD KEMAR Lindsey/SHONA /8:30 PM /5:58 AM
[2016-09-19] MEDS: DEXT 5%-NACL 0.45% 1000 ML INJ 1,000 ML IV SCH ×3 (06:55→20:17)
[2016-09-19] MEDS: INSULIN ASPART SUPPLEMENTAL SCALE SQ SCH ×4 (07:00→20:42)
[2016-09-19] MEDS: SODIUM CHLORIDE 0.9% FLUSH 10 ML FLUSH IV FLUSH SCH ×3 (08:16→20:17)
[2016-09-19] MEDS: metroNIDAZOLE 500 MG INJ 100 ML IV SCH ×3 (08:18→23:08)
[2016-09-19] MEDS: FLUoxetine HCL 20 MG CAP PO SCH (08:19)
[2016-09-19] MEDS: POTASSIUM CHLOR 20 MEQ PREMIX 100 ML IV PRN ×2 (08:19→10:53)
--- NOTE | 2016-09-19 08:23 | HHI.FPPN ---
Subjective Remarks Patient seen and examined this morning. Patient states that she has little pain in her abdomen today. No pain in her arms or legs. She states that she is sad that she has not seen her granddaughter in so long, is hoping to get better soon and be able to go home. No nausea, vomiting, fever, chills, chest pain, shortness of breath, dizziness, lightheadedness. No additional complaints. Objective Vitals Vital Signs Date Time Temp Pulse Resp B/P Pulse Ox O2 Delivery O2 Flow Rate FiO2 09/19/16 07:15 79 15 96 09/19/16 07:00 73 15 115/55 97 09/19/16 06:45 79 16 97 09/19/16 06:30 80 16 95 09/19/16 06:15 81 15 96 09/19/16 06:01 74 15 107/58 97 09/19/16 06:00 72 16 97 09/19/16 05:45 83 17 98 09/19/16 05:30 72 16 99 09/19/16 05:15 82 18 99 09/19/16 05:00 82 21 138/63 99 09/19/16 04:45 79 21 94 09/19/16 04:30 71 23 99 09/19/16 04:15 70 19 98 09/19/16 04:00 69 18 125/64 100 09/19/16 03:45 78 25 100 09/19/16 03:30 79 28 96 09/19/16 03:15 83 27 94 09/19/16 03:00 80 18 119/62 94 09/19/16 02:45 68 18 99 09/19/16 02:30 67 18 99 09/19/16 02:15 73 18 97 09/19/16 02:00 73 16 130/65 98 09/19/16 02:00 79 09/19/16 01:45 97 22 96 09/19/16 01:30 77 17 97 09/19/16 01:23 76 15 131/57 100 09/19/16 01:15 72 17 97 09/19/16 01:00 80 15 125/60 100 09/19/16 00:45 81 16 97 09/19/16 00:30 79 17 97 09/19/16 00:15 80 15 98 09/19/16 00:00 99.6 18 09/19/16 00:00 82 15 127/61 96 09/19/16 00:00 82 15 127/61 96 09/19/16 00:00 99.6 18 09/19/16 00:00 82 09/18/16 23:45 76 14 98 09/18/16 23:30 81 18 95 09/18/16 23:15 82 22 97 09/18/16 23:00 81 14 129/60 97 09/18/16 22:45 106 21 91 09/18/16 22:30 83 15 98 09/18/16 22:15 79 22 99 09/18/16 22:01 81 15 119/58 100 09/18/16 22:00 79 22 98 09/18/16 22:00 79 09/18/16 21:45 79 19 97 09/18/16 21:30 74 17 98 09/18/16 21:15 73 17 100 09/18/16 21:00 73 15 119/56 100 09/18/16 20:45 81 17 99 09/18/16 20:44 76 14 122/59 98 09/18/16 20:30 70 12 99 09/18/16 20:15 83 22 99 09/18/16 20:00 74 09/18/16 20:00 99.0 19 09/18/16 20:00 74 17 99 09/18/16 18:00 80 09/18/16 17:23 79 09/18/16 16:45 97 21 09/18/16 16:01 81 09/18/16 16:01 99.8 81 19 121/58 97 09/18/16 16:00 79 09/18/16 16:00 79 18 95 09/18/16 15:30 75 18 142/65 100 09/18/16 15:30 75 09/18/16 15:01 83 09/18/16 15:01 83 19 137/64 99 09/18/16 15:00 78 18 94 09/18/16 14:31 78 09/18/16 14:31 78 16 154/67 98 09/18/16 14:01 85 09/18/16 14:01 85 16 164/65 98 09/18/16 14:00 80 09/18/16 14:00 80 14 97 09/18/16 13:31 86 12 181/71 99 09/18/16 13:31 86 09/18/16 13:22 86 12 145/65 98 09/18/16 13:22 86 09/18/16 13:00 80 14 100 09/18/16 12:00 80 09/18/16 12:00 80 12 125/63 100 09/18/16 11:30 78 15 115/59 100 09/18/16 11:30 78 09/18/16 11:00 76 17 122/59 100 09/18/16 11:00 76 09/18/16 10:30 76 09/18/16 10:30 76 19 119/60 96 09/18/16 10:00 76 09/18/16 10:00 76 14 114/61 100 09/18/16 09:30 77 15 115/66 99 09/18/16 09:30 77 09/18/16 09:21 77 17 120/63 98 09/18/16 09:21 77 09/18/16 09:08 97 21 09/18/16 09:00 94 19 I/O 09/18/16 09/18/16 09/18/16 09/19/16 09/19/16 09/19/16 06:59 14:59 22:59 06:59 14:59 22:59 Intake Total 1104 ml 1328 ml 40 ml 1139 ml Output Total 200 ml 1900 ml 745 ml 585 ml Balance 904 ml -572 ml -705 ml 554 ml Intake Oral 40 ml 30 ml IV Total 1104 ml 1328 ml 1109 ml Output Urine Total 200 ml 1800 ml 650 ml 575 ml Gastric Drainage Total 0 ml 100 ml 0 ml 0 ml Drainage Total 0 ml 0 ml 95 ml 10 ml # Bowel Movements 0 0 Result Diagram: 09/19/16 0449 09/19/16 0449 Imaging Last 48 hours Impressions Upper Extremity Ultrasound 09/18/16 0000 Signed Impressions: Service Date/Time: Sunday, September 18, 2016 13:11 - CONCLUSION: 1. Extensive deep venous thrombosis and superficial thrombosis left upper extremity. Pee Mcclure MD FACR Lower Extremity Ultrasound 09/18/16 0000 Signed Impressions: Service Date/Time: Sunday, September 18, 2016 16:21 - CONCLUSION: Bilateral lower extremity deep venous thrombosis with nonocclusive thrombus within the right mid superficial femoral vein and right greater saphenous vein as well as left popliteal vein and occlusive DVT within the right posterior tibial and left peroneal veins. Nahun Bray MD Chest X-Ray 09/18/16 0000 Signed Impressions: Service Date/Time: Sunday, September 18, 2016 23:03 - CONCLUSION: 1. Abnormal position of the left IJ line with distal tip in the left axillary vein. 2. Left basilar opacity most likely representing either atelectasis or consolidation. Angel Perez MD Objective Remarks GENERAL: This is an elderly female lying comfortably in bed, no acute distress. NG tube in place. SKIN: . Cool and dry. HEAD: Atraumatic. Normocephalic. EYES: Pupils equal round and reactive. Extraocular motions intact. No scleral icterus. No injection or drainage. NECK: Trachea midline. No JVD or lymphadenopathy. Supple, nontender. CARDIOVASCULAR: Regular rate and rhythm without murmurs, gallops, or rubs. RESPIRATORY: Clear to auscultation. Breath sounds equal bilaterally. No wheezes , rales, or rhonchi. GASTROINTESTINAL: Abdomen soft, mildly tender to palpation in right upper quadrant. guarding improved today. Non-distended. No rebound. No masses appreciated. BS+ but soft MUSCULOSKELETAL: Edema in upper and lower extremities, 3+ pitting. Mildly tender B/L. No erythema. No unilateral asymmetry. PT/DP pulses 2+ B/L NEUROLOGICAL: Awake and alert. Motor and sensory grossly within normal limits. Normal speech. Medications and IVs Current Medications Medications (Trade) Dose Ordered Sig/Ani Route Start Time Stop Time Status Last Admin (NS Flush) 2 ml UNSCH PRN IV FLUSH 09/14/16 12:30 09/19/16 14:35 (NS Flush) 2 ml BID IV FLUSH 09/14/16 21:00 09/19/16 08:16 (Zofran Inj) 4 mg Q6H PRN IV 09/14/16 12:45 09/19/16 14:35 (Xanax) 1 mg Q8H PRN PO 09/14/16 12:45 09/19/16 14:04 (PROzac) 20 mg DAILY PO 09/15/16 09:00 09/19/16 08:19 (D50w (Vial) Inj) 50 ml UNSCH PRN IV 09/14/16 12:45 Glucagon 1 mg 1 mg UNSCH PRN OTHER 09/14/16 12:45 Metronidazole 100 ml @ 100 mls/hr Q8H IV 09/14/16 16:00 09/19/16 16:36 (Rocephin Inj/NS Inj) 100 ml @ 200 mls/hr Q24H IV 09/14/16 20:00 09/19/16 00:00 (Morphine Inj) 4 mg Q3H PRN IV 09/14/16 22:30 09/18/16 23:53 (Narcan Inj) 0.4 mg UNSCH PRN IV 09/14/16 22:30 Sodium Chloride 10 ml 10 ml BID IRRIGATION 09/15/16 21:00 09/19/16 09:00 Fluconazole/ Sodium Chloride 200 ml @ 100 mls/hr Q24H IV 09/15/16 17:00 09/18/16 23:54 Dextrose/Sodium Chloride 1,000 ml @ 150 mls/hr Q6H40M IV 09/16/16 12:15 09/19/16 14:05 Potassium Chloride 100 ml @ 50 mls/hr Q2H PRN IV 09/16/16 12:15 (KCl 20 Meq Premix Inj) 100 ml @ 50 mls/hr Q2H PRN IV 09/16/16 12:15 Potassium Bicarb/ Potassium Chloride 50 meq 50 meq UNSCH PRN PO 09/16/16 12:15 Potassium Chloride 100 ml @ 25 mls/hr UNSCH PRN IV 09/16/16 12:15 Potassium Chloride 100 ml @ 50 mls/hr Q2H PRN IV 09/16/16 12:15 09/19/16 10:53 (Magnesium Sulfate Inj/NS Inj) 100 ml @ 50 mls/hr UNSCH PRN IV 09/16/16 12:15 Magnesium Oxide 800 mg 800 mg UNSCH PRN PO 09/16/16 12:15 (Magnesium Sulfate Inj/NS Inj) 100 ml @ 50 mls/hr UNSCH PRN IV 09/16/16 12:15 09/16/16 22:38 Potassium Phosphate 2000 mg 2,000 mg Q4H PRN PO 09/16/16 12:15 (Sodium Phosphate Inj/NS 250 ml Inj) 250 ml @ 42 mls/hr UNSCH PRN IV 09/16/16 12:15 Potassium Phosphate 2000 mg 2,000 mg UNSCH PRN PO/TUBE 09/16/16 12:15 (Potassium Phosphate Inj/NS 250 ml Inj) 260 ml @ 42 mls/hr UNSCH PRN IV 09/16/16 12:15 09/16/16 22:39 Pantoprazole Sodium 40 mg 40 mg Q12H IV PUSH 09/18/16 14:00 09/19/16 14:04 (Heparin-D5W Inj) 250 ml @ 0 mls/hr TITRATE IV 09/18/16 19:45 09/18/16 23:55 (Dilaudid Pf Inj) 1 mg ONCE SQ 09/18/16 20:15 09/20/16 20:14 09/18/16 21:09 A/P Assessment and Plan This is a 60-year-old female with history of ulcerative colitis and ulcers, presents with severe anemia found to have perforated ulcer and abscess formation. Gastroenterology and colorectal surgery consulted. IR drainage completed 09/15, uncomplicated. Discharge Planning Pending clinical improvement Problem List: (1) Perforated duodenal ulcer Status: Acute Plan: CT scan 09/14 demonstrates a perforation of the duodenum with an abnormal fluid collection with contrast anterior to the mesenteric vasculature measuring 9.12.5 cm with adjacent stranding in the mesentery. There is no free perforation into the abdominal cavity. Intensive care on board Colorectal surgery, Dr. Cisneros, consulted Gastroenterology consult Continue antibiotics as below Nothing by mouth with NG tube to keep the stomach decompressed. Pain: IV Tylenol, morphine Changed protonix drip to IV push due to difficulty obtaining a second peripheral IV. Alerted by nursing this drip would be incompatible with the antibiotics being run through the same line. If the patient deteriorates clinically, continues to bleed, surgical intervention would be required. (2) Abscess Status: Acute Plan: CT scan 09/14 shows 9.12.5 cm fluid collection anterior to the mesenteric vasculature with adjacent stranding in the mesentery. Colorectal surgery consulted IR drainage performed 09/15 without complication. (3) GI bleed Status: Acute Plan: From perforated ulcer, see above Gastroenterology consult Colorectal surgery consult Status post 4 units packed red blood cells Continue IV antibiotics per GI: Flagyl 500 IV every 8 hours, Rocephin 1 g IV every 24 hours Positive fungal growth in cultures Fluconazole 400 q24 Continue to monitor H&H Transfuse as needed (4) DVT (deep venous thrombosis) Status: Acute Plan: Bilateral upper and lower extremity ultrasounds performed, thrombi found in extremities as noted above. Hematology consulted who recommended: - Began Heparin drip @ 250 mls/hr - Recommended against IVC filter Continue to appreciate recommendations (5) Hypoalbuminemia Status: Acute Plan: Albumin noted to be 1.6 on 09/16 in the afternoon, 1.6 09/19 - Albumin administered - F/U albumin - speak with hematology prior to administration due to recent multiple DVT development (6) Depression with anxiety Status: Acute Plan: Continue fluoxetine IV Ativan for anxiety (7) CAROL (acute kidney injury) Status: Acute Plan: Improved. Continue hydration and continue to monitor. (8) Diabetes Status: Acute Plan: History of chronic diabetes. On insulin at home. -Low dose sliding scale while inpatient (9) FEN Status: Acute Plan: Fluids: NS @ 150mls/hr Electrolytes: magnesium low today, ICU electrolyte set added Nutrition: NPO DVT ppx: chemoppx contraindicated, SCDs GI ppx: Protonix drip Problem Qualifiers (1) GI bleed: Qualified Code: K29.91 - Gastrointestinal hemorrhage associated with gastroduodenitis (2) Diabetes: Qualified Code: E11.9 - Type 2 diabetes mellitus without complication, with long-term current use of insulin Elliott Willingham MD R1 Sep 19, 2016 08:23
[2016-09-19 08:49] LABS: APTT (PATIENT) 48.3 SEC (24.3-30.1); INTERNATIONAL NORMALIZED RATIO 1.4 RATIO; PROTHROMBIN TIME - PATIENT 15.2 SEC (9.8-11.6)
[2016-09-19] MEDS: SODIUM CHLORIDE 0.9% 10 ML VIAL IRRIGATION SCH ×2 (09:00→21:48)
--- NOTE | 2016-09-19 11:47 | PD.ONC.PN ---
Subjective Subjective Remarks Afebrile overnight. Patient resting in bed. asking to start a diet. no coffee ground emesis. no obvious bleeding. Objective Data Date Time Temp Pulse Resp B/P Pulse Ox O2 Delivery O2 Flow Rate FiO2 09/19/16 08:00 73 09/19/16 08:00 99.0 73 20 126/65 100 09/19/16 07:15 79 15 96 09/19/16 07:00 73 15 115/55 97 09/19/16 06:45 79 16 97 09/19/16 06:30 80 16 95 09/19/16 06:15 81 15 96 09/19/16 06:01 74 15 107/58 97 09/19/16 06:00 72 16 97 09/19/16 05:45 83 17 98 09/19/16 05:30 72 16 99 09/19/16 05:15 82 18 99 09/19/16 05:00 82 21 138/63 99 09/19/16 04:45 79 21 94 09/19/16 04:30 71 23 99 09/19/16 04:15 70 19 98 09/19/16 04:00 69 18 125/64 100 09/19/16 03:45 78 25 100 09/19/16 03:30 79 28 96 09/19/16 03:15 83 27 94 09/19/16 03:00 80 18 119/62 94 09/19/16 02:45 68 18 99 09/19/16 02:30 67 18 99 09/19/16 02:15 73 18 97 09/19/16 02:00 73 16 130/65 98 09/19/16 02:00 79 09/19/16 01:45 97 22 96 09/19/16 01:30 77 17 97 09/19/16 01:23 76 15 131/57 100 09/19/16 01:15 72 17 97 09/19/16 01:00 80 15 125/60 100 09/19/16 00:45 81 16 97 09/19/16 00:30 79 17 97 09/19/16 00:15 80 15 98 09/19/16 00:00 99.6 18 09/19/16 00:00 82 15 127/61 96 09/19/16 00:00 82 15 127/61 96 09/19/16 00:00 99.6 18 09/19/16 00:00 82 09/18/16 23:45 76 14 98 09/18/16 23:30 81 18 95 09/18/16 23:15 82 22 97 09/18/16 23:00 81 14 129/60 97 09/18/16 22:45 106 21 91 09/18/16 22:30 83 15 98 09/18/16 22:15 79 22 99 09/18/16 22:01 81 15 119/58 100 09/18/16 22:00 79 22 98 09/18/16 22:00 79 09/18/16 21:45 79 19 97 09/18/16 21:30 74 17 98 09/18/16 21:15 73 17 100 09/18/16 21:00 73 15 119/56 100 09/18/16 20:45 81 17 99 09/18/16 20:44 76 14 122/59 98 09/18/16 20:30 70 12 99 09/18/16 20:15 83 22 99 09/18/16 20:00 74 09/18/16 20:00 99.0 19 09/18/16 20:00 74 17 99 09/18/16 18:00 80 09/18/16 17:23 79 09/18/16 16:45 97 21 09/18/16 16:01 81 09/18/16 16:01 99.8 81 19 121/58 97 09/18/16 16:00 79 09/18/16 16:00 79 18 95 09/18/16 15:30 75 18 142/65 100 09/18/16 15:30 75 09/18/16 15:01 83 09/18/16 15:01 83 19 137/64 99 09/18/16 15:00 78 18 94 09/18/16 14:31 78 09/18/16 14:31 78 16 154/67 98 09/18/16 14:01 85 09/18/16 14:01 85 16 164/65 98 09/18/16 14:00 80 09/18/16 14:00 80 14 97 09/18/16 13:31 86 12 181/71 99 09/18/16 13:31 86 09/18/16 13:22 86 12 145/65 98 09/18/16 13:22 86 09/18/16 13:00 80 14 100 09/18/16 12:00 80 09/18/16 12:00 80 12 125/63 100 09/19/16 09/19/16 09/19/16 07:00 15:00 23:00 Intake Total 1139 ml Output Total 585 ml Balance 554 ml Result Diagram: 09/19/16 0449 09/19/16 0449 Laboratory Results Laboratory Tests Test 09/18/16 09/18/16 09/19/16 09/19/16 12:47 14:42 04:49 08:25 White Blood Count 8.1 TH/MM3 7.4 TH/MM3 Red Blood Count 3.32 MIL/MM3 3.04 MIL/MM3 Hemoglobin 10.1 GM/DL 9.1 GM/DL Hematocrit 30.1 % 26.8 % Mean Corpuscular Volume 90.8 FL 88.3 FL Mean Corpuscular Hemoglobin 30.5 PG 30.0 PG Mean Corpuscular Hemoglobin 33.6 % 33.9 % Concent Red Cell Distribution Width 16.4 % 15.8 % Platelet Count 157 TH/MM3 157 TH/MM3 Mean Platelet Volume 9.0 FL 9.1 FL Sodium Level 139 MEQ/L 139 MEQ/L Potassium Level 3.7 MEQ/L 3.3 MEQ/L Chloride Level 105 MEQ/L 106 MEQ/L Carbon Dioxide Level 25.5 MEQ/L 27.3 MEQ/L Anion Gap 9 MEQ/L 6 MEQ/L Blood Urea Nitrogen 6 MG/DL 5 MG/DL Creatinine 0.97 MG/DL 0.77 MG/DL Estimat Glomerular Filtration 58 ML/MIN 76 ML/MIN Rate Random Glucose 214 MG/DL 158 MG/DL Calcium Level 7.4 MG/DL 7.2 MG/DL Protein Corrected Calcium 8.3 MG/DL 8.4 MG/DL Phosphorus Level 1.9 MG/DL Magnesium Level 1.4 MG/DL Iron Level 13 MCG/DL Total Iron Binding Capacity 148 MCG/DL Percent Iron Saturation 8.8 % Ferritin 154 NG/ML Total Protein 5.4 GM/DL 4.9 GM/DL Vitamin B12 Level GREATER THAN 2000 PG/ML Prothrombin Time 14.9 SEC 15.2 SEC Prothromb Time International 1.3 RATIO 1.4 RATIO Ratio Activated Partial 26.0 SEC 48.3 SEC Thromboplast Time Albumin 1.6 GM/DL Administered Medications Medications (Trade) Dose Ordered Sig/Ani Route PRN Reason Start Time Stop Time Status Last Admin Dose Admin Sodium Chloride (NS Flush) 2 ml UNSCH PRN IV FLUSH FLUSH AFTER USING IV ACCESS 09/14/16 12:30 09/14/16 14:06 Sodium Chloride (NS Flush) 2 ml BID IV FLUSH 09/14/16 21:00 09/19/16 08:16 Fluoxetine HCl 20 mg 20 mg DAILY PO 09/15/16 09:00 09/19/16 08:19 Metronidazole 100 ml @ 100 mls/hr Q8H IV 09/14/16 16:00 09/19/16 08:18 Ceftriaxone Sodium/Sodium Chloride (Rocephin Inj/NS Inj) 100 ml @ 200 mls/hr Q24H IV 09/14/16 20:00 09/19/16 00:00 Morphine Sulfate (Morphine Inj) 4 mg Q3H PRN IV BREAKTHROUGH PAIN 09/14/16 22:30 09/18/16 23:53 Sodium Chloride 10 ml 10 ml BID IRRIGATION 09/15/16 21:00 09/19/16 09:00 Fluconazole/ Sodium Chloride 200 ml @ 100 mls/hr Q24H IV 09/15/16 17:00 09/18/16 23:54 Dextrose/Sodium Chloride 1,000 ml @ 150 mls/hr Q6H40M IV 09/16/16 12:15 09/18/16 09:23 Potassium Chloride 100 ml @ 50 mls/hr Q2H PRN IV For Potassium 3.3 - 3.5 mEq/L 09/16/16 12:15 09/19/16 10:53 Magnesium Sulfate 2 gm/Sodium Chloride 100 ml @ 50 mls/hr UNSCH PRN IV For Magnesium 1.2 - 1.6 mg/dL 09/16/16 12:15 09/16/16 22:38 Potassium Phosphate/Sodium Chloride (Potassium Phosphate Inj/NS 250 ml Inj) 260 ml @ 42 mls/hr UNSCH PRN IV SEE LABEL COMMENTS 09/16/16 12:15 09/16/16 22:39 Lorazepam (Ativan Inj) 1 mg Q8HR PRN IV PUSH ANXIETY 09/16/16 14:00 09/18/16 23:53 Pantoprazole Sodium 40 mg 40 mg Q12H IV PUSH 09/18/16 14:00 09/18/16 14:00 Heparin Sodium/ Dextrose (Heparin-D5W Inj) 250 ml @ 0 mls/hr TITRATE IV 09/18/16 19:45 09/18/16 23:55 Hydromorphone HCl (Dilaudid Pf Inj) 1 mg ONCE SQ 09/18/16 20:15 09/20/16 20:14 09/18/16 21:09 Objective Remarks GENERAL: Middle aged female upright in bed. NGT in place,clamped. cannister next to bed with clear green liquid inside. SKIN: Warm and dry. HEAD: Normocephalic. EYES: No injection or drainage. NECK: Supple, trachea midline. CARDIOVASCULAR: Regular rate and rhythm RESPIRATORY: Breath sounds equal bilaterally. No accessory muscle use. GASTROINTESTINAL: Abdomen soft, mildly tender, non-distended. drain in place with clear drainage. EXTREMITIES: No cyanosis MUSCULOSKELETAL: Adequate muscle tone. NEUROLOGICAL: No obvious focal deficit. Awake and alert. Assessment/Plan Problem List: (1) DVT (deep venous thrombosis) Status: Acute Plan: --on heparin gtt--flat dose of 800U/hr --U/S UE: shows extensive venous thromboses + axillary vein involving both the deep and superficial cephalic vein. The left upper extremity shows spontaneous flow. --U/S LE: bilateral lower extremity deep vein thromboses. + right mid- superficial femoral vein and the right greater saphenous vein. +occlusive deep vein thrombosis in the right posterior tibial vein. +nonocclusive thromboses of the left popliteal. +Occlusive thrombus is noted in the left peroneal vein. --patient reports hereditary predisposition and names it Factor V Leiden. Review of her hypercoagulable panel in 2004 showed heterozygosity for Factor V Leiden. Prothrombin G mutation is normal. --option of inferior vena cava filter placement which in the current setting may not be helpful. suspect that she would thrombose an inferior vena cava filter and it would shortly lose his usefulness. --has no absolute contraindication for anticoagulant therapy at present. (2) GI bleed Status: Acute Plan: --presented to the emergency room with two episodes of dark stool on . --CT ab/pelvis showed perforation of the proximal duodenum with fluid collection and contrast measuring 9.1 x 2.5 cm. --surgery saw and recommended conservative management. --seen in IR and CT-guided drainage was placed on 09/15/2016. --recent hospitalization and endoscopic procedure on 08/26/2016 shows a large ulceration in the distal bulb of the duodenum into the descending duodenum. There are multiple ischemic-looking ulcers. Assessment 60y/o female with bilateral upper extremity and lower extremity deep vein thromboses + GI bleed from a duodenal ulcer. h/o Ulcerative colitis. Duodenal ulcer. Marcy esophagitis. Diabetes. Depression. Anxiety.Hyperlipidemia. Recurrent venous thromboembolic event Plan 1. PTT is 48s today. continue at current flat rate. 2. check H/H this afternoon. 3. continue heparin gtt Attending Statement The exam, history, and the medical decision-making described in the above note were completed with the assistance of the mid-level provider. I reviewed and agree with the findings presented. I attest that I had a [id number] encounter with the patient on the same day, and personally performed and documented my assessment and findings in the medical record. Stable over night, no bleeding, eager to take po clears, defer to GI pending decision. Tolerated central line placement. Continue UFH 800U/hr, no changes currently. Suspect some vitamin K deficiency contributing in light of long time NPO, deplete K stores. Problem Qualifiers (1) GI bleed: Qualified Code: K29.91 - Gastrointestinal hemorrhage associated with gastroduodenitis Talita Issa Sep 19, 2016 11:47 Tesha Branch MD Sep 19, 2016 15:57
--- NOTE | 2016-09-19 11:58 | HHI.PR ---
Subjective Subjective Notes Upset; crying Patient is requesting to be transferred to "[facility]" Patient insists that she is not in the hospital and she would like her family notified RN at bedside Objective Vitals/I&O Vital Signs Date Time Temp Pulse Resp B/P Pulse Ox O2 Delivery O2 Flow Rate FiO2 09/19/16 08:00 73 09/19/16 08:00 99.0 20 126/65 100 09/18/16 16:45 21 09/15/16 07:58 Nasal Cannula 2.00 Labs Laboratory Tests Test 09/18/16 09/18/16 09/19/16 09/19/16 12:47 14:42 04:49 08:25 White Blood Count 8.1 7.4 Red Blood Count 3.32 3.04 Hemoglobin 10.1 9.1 Hematocrit 30.1 26.8 Mean Corpuscular Volume 90.8 88.3 Mean Corpuscular Hemoglobin 30.5 30.0 Mean Corpuscular Hemoglobin 33.6 33.9 Concent Red Cell Distribution Width 16.4 15.8 Platelet Count 157 157 Mean Platelet Volume 9.0 9.1 Sodium Level 139 139 Potassium Level 3.7 3.3 Chloride Level 105 106 Carbon Dioxide Level 25.5 27.3 Anion Gap 9 6 Blood Urea Nitrogen 6 5 Creatinine 0.97 0.77 Estimat Glomerular Filtration 58 76 Rate Random Glucose 214 158 Calcium Level 7.4 7.2 Protein Corrected Calcium 8.3 8.4 Phosphorus Level 1.9 Magnesium Level 1.4 Iron Level 13 Total Iron Binding Capacity 148 Percent Iron Saturation 8.8 Ferritin 154 Total Protein 5.4 4.9 Vitamin B12 Level GREATER THAN 2000 Prothrombin Time 14.9 15.2 Prothromb Time International 1.3 1.4 Ratio Activated Partial 26.0 48.3 Thromboplast Time Albumin 1.6 Date/Time Procedure Status Source Growth 09/15/16 13:25 Gram Stain - Final Resulted Abscess Abdomen 09/15/16 13:25 Wound Culture - Preliminary Resulted Gram Negative Dez Group D Enterococcus Radiology Last Impressions Abscess Drainage CT 09/15/16 0000 Signed Impressions: Service Date/Time: Thursday, September 15, 2016 12:50 - CONCLUSION: Uncomplicated CT guided drainage, as above. Ady Jasmine MD Abdomen/Pelvis CT 09/14/16 1802 Signed Impressions: Service Date/Time: Wednesday, September 14, 2016 22:22 - CONCLUSION: 1. Perforation along the proximal duodenum with fluid collection of contrast and air measuring 9.1 x 2.5 cm. 2. Calcified leiomyoma. 3. Mild distention of the urinary bladder. Dr. Villalba notified of these findings. Will Pink MD Cardiovascular: Regular Lungs: Clear Abdomen: Other (abdomen soft; minimally tender; drain with green colored thick drainage ) Narrative Exam Khan with dark yellow urine A/P Assessment and Plan 60-year-old female with complicated medical history who has a contained chronic perforated duodenal ulcer successfully drained by IR -Continue to monitor WBC/fevers -Continue antibiotics: Diflucan/Rocephin/Flagyl -Hepatin gtt started for DVTs -Will follow cultures -PT -OOB -Clamp NGT; if residual less than 200 cc after hours DC and start sips of clear liquids Attending Note - Dr. Cisneros Sleepy, but more oriented in the afternoon Abdomen soft Drain output 5 cc, green Remove NG and start liquids The exam, history, and the medical decision-making described in the above note were completed with the assistance of the mid-level provider. I reviewed and agree with the findings presented. I attest that I had a [id number] encounter with the patient on the same day, and personally performed and documented my assessment and findings in the medical record. Siena Brooks Sep 19, 2016 11:58 Elliott Cisneros MD Sep 20, 2016 18:41
[2016-09-19 13:52] LABS: ENDOMYSIAL AB TITER ND (<1:5); TISSUE TRANSGLUTAMINASE AB LESS THAN 1 U/mL (())
[2016-09-19] MEDS: PANTOPRAZOLE SODIUM 40 MG VIAL IV PUSH SCH (14:04)
[2016-09-19] MEDS: ALPRAZolam 1 MG TAB PO PRN (14:04)
[2016-09-19] MEDS: ONDANSETRON HCL 4 MG/2 ML VIAL IV PRN (14:35)
[2016-09-19] MEDS: SODIUM CHLORIDE 0.9% FLUSH 10 ML FLUSH IV FLUSH PRN (14:35)
[2016-09-19 16:06] LABS: HEMATOCRIT 25.6 % (35.0-46.0); REVIEW FLAG FINAL
--- NOTE | 2016-09-19 16:40 | HHI.CCPN ---
Subjective Remarks/Hospital Course This is a 60-year-old female admitted earlier in the week or acute blood loss symptomatic anemia. The patient had multiple imaging and laboratory studies which revealed a large duodenal ulcer. GI was consulted and interventions performed, Dr. Gutierrez. The patient was noted also to have Marcy esophagitis and chronic gastritis. The patient has a history of ulcerative colitis and is status post a subtotal colectomy with anastomosis 1999. Her medical history is significant for episodes of ischemia and a prothrombotic state, with a history of DVT in the past, and the patient was on Xarelto at home which she start stop taking approximately 2 weeks ago. The patient over the last day or so complain of bilateral leg pain. Ultrasound Doppler imaging was performed which revealed nonocclusive and occlusive DVTs. Hematology/oncology has been consulted. Critical care medicine was consulted. Subjective: 09/19: The patient underwent central line placement for venous access last evening. Hematologyoncology following, the patient was placed on heparin infusion, with monitoring daily PTT. Additionally added monitoring hemoglobin every 12 hours to ensure no bleeding. Patient extremely anxious yesterday received Ativan during the night, and had an EGD idiosyncratic reaction- extremely confused added agitated, slightly combative. Ativan discontinued. The patient's mentation now within normal limits. Objective Vital Signs Date Time Temp Pulse Resp B/P Pulse Ox O2 Delivery O2 Flow Rate FiO2 09/19/16 14:00 74 09/19/16 12:00 98.2 14 134/63 99 09/18/16 16:45 21 09/15/16 07:58 Nasal Cannula 2.00 Intake and Output 09/18/16 09/18/16 09/19/16 08:00 16:00 00:00 Intake Total 1104 ml 1328 ml 40 ml Output Total 200 ml 1900 ml 745 ml Balance 904 ml -572 ml -705 ml Result Diagram: 09/19/16 1545 09/19/16 0449 Imaging Last Impressions Upper Extremity Ultrasound 09/18/16 0000 Signed Impressions: Service Date/Time: Sunday, September 18, 2016 13:11 - CONCLUSION: 1. Extensive deep venous thrombosis and superficial thrombosis left upper extremity. Pee Mcclure MD FACR Abscess Drainage CT 09/15/16 0000 Signed Impressions: Service Date/Time: Thursday, September 15, 2016 12:50 - CONCLUSION: Uncomplicated CT guided drainage, as above. Ady Jasmine MD Abdomen/Pelvis CT 09/14/16 1802 Signed Impressions: Service Date/Time: Wednesday, September 14, 2016 22:22 - CONCLUSION: 1. Perforation along the proximal duodenum with fluid collection of contrast and air measuring 9.1 x 2.5 cm. 2. Calcified leiomyoma. 3. Mild distention of the urinary bladder. Dr. Villalba notified of these findings. Will Pink MD A/P Assessment and Plan Assessment Prothrombotic state Duodenal ulceration Chronic gastritis Ulcerative colitis Marcy esophagitis Acute blood loss anemia CAROL secondary to acute blood loss anemia DVT bilateral upper and lower extremities GERD Bipolar disorder Diabetes mellitus Hyperlipidemia Plan by systems: Neurologic: -Ativan discontinued secondary to idiosyncratic reaction -Resume every 4 hours when necessary for anxiety, upon obtaining vascular access -Consider Ofirmev 1 g every 6 hours when necessary 4 doses. Patient continues on Dilaudid when necessary -Will add melatonin 5 mg by mouth daily at bedtime when necessary Respiratory: -No acute issues -Maintain O2 sat greater than 92% -Apply incentive spirometry, every hour while awake Cardiovascular: -Maintain MAP greater than 65 mmHg -Obtain vascular access will central line will be required, a peripheral venous access available Renal: -- Strict I/Os FEN/GI: -Percutaneous drain monitor output -GI following Dr. Gutierrez, continue to follow recommendations Heme/ID: -Hematology consulted- Dr. Branch, heparin infusion( no titration), daily PTT monitoring -Monitor coagulation studies -Monitor H&H every 12 hours Endocrine: Glucose monitoring per ICU protocol. Low dose regimen -- SSI Prophylaxis: GI Prophylaxis Per GI recommendations DVT Prophylaxis-bilateral lower DVTs, occlusive and nonocclusive -- SCDs Anticoagulation per hematology/GI/and general surgery combined recommendations Lines: Central line 09/18 Dispo: Level 2 Physician Traci Shah MD Sep 19, 2016 16:40
--- NOTE | 2016-09-19 16:50 | HHI.GIFU ---
Subjective Remarks patient resting in bed, would like to advance diet. NGT has been clamped and had no residual, no melena or hematemesis (Roshni David) Objective Vitals I&O Vital Signs Date Time Temp Pulse Resp B/P Pulse Ox O2 Delivery O2 Flow Rate FiO2 09/19/16 16:00 99.4 84 18 109/56 95 09/19/16 16:00 84 09/19/16 14:00 74 09/19/16 12:00 77 09/19/16 12:00 98.2 77 14 134/63 99 09/19/16 10:00 75 09/19/16 08:00 73 09/19/16 08:00 99.0 73 20 126/65 100 09/19/16 07:15 79 15 96 09/19/16 07:00 73 15 115/55 97 09/19/16 06:45 79 16 97 09/19/16 06:30 80 16 95 09/19/16 06:15 81 15 96 09/19/16 06:01 74 15 107/58 97 09/19/16 06:00 72 16 97 09/19/16 05:45 83 17 98 09/19/16 05:30 72 16 99 09/19/16 05:15 82 18 99 09/19/16 05:00 82 21 138/63 99 09/19/16 04:45 79 21 94 09/19/16 04:30 71 23 99 09/19/16 04:15 70 19 98 09/19/16 04:00 69 18 125/64 100 09/19/16 03:45 78 25 100 09/19/16 03:30 79 28 96 09/19/16 03:15 83 27 94 09/19/16 03:00 80 18 119/62 94 09/19/16 02:45 68 18 99 09/19/16 02:30 67 18 99 09/19/16 02:15 73 18 97 09/19/16 02:00 73 16 130/65 98 09/19/16 02:00 79 09/19/16 01:45 97 22 96 09/19/16 01:30 77 17 97 09/19/16 01:23 76 15 131/57 100 09/19/16 01:15 72 17 97 09/19/16 01:00 80 15 125/60 100 09/19/16 00:45 81 16 97 09/19/16 00:30 79 17 97 09/19/16 00:15 80 15 98 09/19/16 00:00 99.6 18 09/19/16 00:00 82 15 127/61 96 09/19/16 00:00 82 15 127/61 96 09/19/16 00:00 99.6 18 09/19/16 00:00 82 09/18/16 23:45 76 14 98 09/18/16 23:30 81 18 95 09/18/16 23:15 82 22 97 09/18/16 23:00 81 14 129/60 97 09/18/16 22:45 106 21 91 09/18/16 22:30 83 15 98 09/18/16 22:15 79 22 99 09/18/16 22:01 81 15 119/58 100 09/18/16 22:00 79 22 98 09/18/16 22:00 79 09/18/16 21:45 79 19 97 09/18/16 21:30 74 17 98 09/18/16 21:15 73 17 100 09/18/16 21:00 73 15 119/56 100 09/18/16 20:45 81 17 99 09/18/16 20:44 76 14 122/59 98 09/18/16 20:30 70 12 99 09/18/16 20:15 83 22 99 09/18/16 20:00 74 09/18/16 20:00 99.0 19 09/18/16 20:00 74 17 99 09/18/16 18:00 80 09/18/16 17:23 79 I/O 09/18/16 09/18/16 09/18/16 09/19/16 09/19/16 09/19/16 07:00 15:00 23:00 07:00 15:00 23:00 Intake Total 1104 ml 1328 ml 40 ml 1139 ml 1316 ml Output Total 200 ml 1900 ml 745 ml 585 ml 960 ml Balance 904 ml -572 ml -705 ml 554 ml 356 ml Intake Oral 40 ml 30 ml IV Total 1104 ml 1328 ml 1109 ml 1316 ml Output Urine Total 200 ml 1800 ml 650 ml 575 ml 950 ml Gastric Drainage Total 0 ml 100 ml 0 ml 0 ml Drainage Total 0 ml 0 ml 95 ml 10 ml 10 ml # Bowel Movements 0 0 1 Laboratory Laboratory Tests Test 09/19/16 09/19/16 09/19/16 04:49 08:25 15:45 White Blood Count 7.4 Red Blood Count 3.04 Hemoglobin 9.1 8.6 Hematocrit 26.8 25.6 Mean Corpuscular Volume 88.3 Mean Corpuscular Hemoglobin 30.0 Mean Corpuscular Hemoglobin 33.9 Concent Red Cell Distribution Width 15.8 Platelet Count 157 Mean Platelet Volume 9.1 Sodium Level 139 Potassium Level 3.3 Chloride Level 106 Carbon Dioxide Level 27.3 Anion Gap 6 Blood Urea Nitrogen 5 Creatinine 0.77 Estimat Glomerular Filtration 76 Rate Random Glucose 158 Calcium Level 7.2 Protein Corrected Calcium 8.4 Total Protein 4.9 Albumin 1.6 Prothrombin Time 15.2 Prothromb Time International 1.4 Ratio Activated Partial 48.3 Thromboplast Time Date/Time Procedure Status Source Growth 09/15/16 13:25 Gram Stain - Final Complete Abscess Abdomen 09/15/16 13:25 Wound Culture - Final Complete Hafnia Alvei Enterococcus Faecalis Yeast Species Imaging Last Impressions Upper Extremity Ultrasound 09/18/16 0000 Signed Impressions: Service Date/Time: Sunday, September 18, 2016 13:11 - CONCLUSION: 1. Extensive deep venous thrombosis and superficial thrombosis left upper extremity. Pee Mcclure MD FACR Lower Extremity Ultrasound 09/18/16 0000 Signed Impressions: Service Date/Time: Sunday, September 18, 2016 16:21 - CONCLUSION: Bilateral lower extremity deep venous thrombosis with nonocclusive thrombus within the right mid superficial femoral vein and right greater saphenous vein as well as left popliteal vein and occlusive DVT within the right posterior tibial and left peroneal veins. Nahun Bray MD Chest X-Ray 09/18/16 0000 Signed Impressions: Service Date/Time: Sunday, September 18, 2016 23:03 - CONCLUSION: 1. Abnormal position of the left IJ line with distal tip in the left axillary vein. 2. Left basilar opacity most likely representing either atelectasis or consolidation. Angel Perez MD Abscess Drainage CT 09/15/16 0000 Signed Impressions: Service Date/Time: Thursday, September 15, 2016 12:50 - CONCLUSION: Uncomplicated CT guided drainage, as above. Ady Jasmine MD Abdomen/Pelvis CT 09/14/16 1802 Signed Impressions: Service Date/Time: Wednesday, September 14, 2016 22:22 - CONCLUSION: 1. Perforation along the proximal duodenum with fluid collection of contrast and air measuring 9.1 x 2.5 cm. 2. Calcified leiomyoma. 3. Mild distention of the urinary bladder. Dr. Villalba notified of these findings. Will Pink MD Physical Exam HEENT: PERRLA, NGT in place. NECK: Neck is supple, no JVD, no lymphadenopathy. CHEST: CTA CARDIAC: RRR ABDOMEN: Soft, nondistended, nontender; no hepatosplenomegaly; bowel sounds x 4 quadrants, drain to the abd EXTREMITIES: No clubbing, cyanosis, or edema. SKIN: Normal; no rash; no jaundice. FOOD BEVERAGE SERVER: No focal deficits; alert and oriented x 3. (Roshni David) Assessment and Plan Plan ASSESSMENT: - Upper GIB, Melena in patient with recent large duodenal ulcer. Recent hospitalization EGD/Colonoscopy (08/26/16)------> Esophagus normal, Stomach: normal, Duodenum: large ulcerations in the distal bulb extending into the descending duodenum. Multiple possibly ischemic looking ulcers. Biopsies taken. Also could be crohns ulcers. Ileum normal, at 25cm. Rectum has appearance of ileal pouch. Two biopsies taken. Pathology focally ulcerated and necrotic small intestinal mucosal biopsies exhibiting features suggestive of ischemia, distorted small intestinal mucosal biopsies with acute inflammation, clinically J pouch biopsy. Abdomen/Pelvis CTA (08/26/16)-----> I see no evidence for mesenteric ischemia. Rpt EGD (08/31/16) --> copious cheesy material in mid to distal esophagus, biopsy taken possible luis, antral gastritis, and large deep ulcer in distal bulb at 12:00 position. Ulcer in descending duodenum appears improved, looks more like typical PUD now. Pathology revealed antral mucosa with mild active chronic gastritis, esophageal mucosa with acute esophagitis containing budding yeast and pseudohyphae in the superficial keratin layers, consistent with luis esophagitis. A GMS stain performed on block #2 is positive for these fungal organisms. She was treated with Protonix, Carafate, Diflucan, Canasa, and Xifaxan. She did better at home, but started having mid and lower abdominal cramping about a week ago and started having melena 2 days ago. HH on 09/03 was 8.6/26.3 and trended down to 4.5/14.2 on 09/14. HH today 8/23.7. S/P blood transfusions. NPO. Protonix Gtt. EGD 09/14/16-- 1. Gastritis antrum-biopsy, esophagitis distal esophagus- biopsy, duodenitis second and third portion of duodenum ulcer clean base duodenal bulb-communication with a cavitary area -looks old- biopsy, no active bleeding 2. Retroflexed views revealed a hiatal hernia. Biopsies pending. Abdomen/Pelvis CT 09/14/16--1. Perforation along the proximal duodenum with fluid collection of contrast and air measuring 9.1 x 2.5 cm. 2. Calcified leiomyoma. 3. Mild distention of the urinary bladder. Plan for drainage of abscess cavity by IR today. - Severe anemia secondary to acute blood loss. HH on 09/03 was 8.6/26.3 and today is 8/23.7. S/P blood transfusions. Protonix Gtt. - Recent large duodenal bulb ulcer. Protonix Gtt. - Luis Esophagitis. Diflucan, PPI, Carafate at home. She has been on Diflucan since 08/31. - Abnormal weight loss. 20 lb weight loss over 3 months. - Ulcerative colitis. Dx 1999. S/P Total Colectomy. Prednisone taper. - Leukocytosis/Fever/Lactic acid 2.7. WBC 14.6. - CAROL. Creat 1.07 - DM, Depression/Anxiety, Hyperlipidemia 09-17-16 no signs of bleeding, hgb today 10.1, NGT to LIWS. She rapports small amount of melena that could be a residual still with abd pain 09-18-16 some coffee ground out put noted in NGT, this is only in the tubing, hasn't reached the canister yet. No melena or hematochezia, she is having abd pain H&H stable 09-19-16 hgb with slight drop, 8.6, no signs of bleeding, NGT tube has been clamped with no residual PLAN: - Clears - If patient does good with clears, with no N/V or residual, ok to to DC NGT in am - S/P Draining of Abscess by IR - Cont. abx - Cont Protonix Gtt - Monitor HH - Transfuse as necessary - GS, CRS on the case - Further recommendations to follow based on results of above Patient seen and examined by Dr. Barreto and myself (Roshni David) Physician Comments Patient seen and examined Agree with above Continue with current supportive care Monitor labs (Thomas Barreto MD) Roshni David Sep 19, 2016 16:50 Thomas Barreto MD Sep 19, 2016 19:31
[2016-09-19] MEDS: MORPHINE SULFATE 4 MG/ML INJ IV PRN ×2 (20:17→23:37)
[2016-09-19] MEDS: cefTRIAXone INJ 1,000 MG in SODIUM CHLORIDE 0.9% INJ 100 ML IV SCH ×4 (21:46→21:47)
[2016-09-20] VITALS (12 sets, daily range): BP systolic 107–129; BP diastolic 52–59; PULSE 62–101; RESP 14–27; TEMP 98.9–99.4; O2SAT 77–99
[2016-09-20] MEDS: PANTOPRAZOLE SODIUM 40 MG VIAL IV PUSH SCH ×2 (00:35→14:15)
[2016-09-20] MEDS: DEXT 5%-NACL 0.45% 1000 ML INJ 1,000 ML IV SCH ×3 (00:36→20:15)
[2016-09-20] MEDS: ALPRAZolam 1 MG TAB PO PRN ×3 (01:54→20:14)
[2016-09-20 03:04] LABS: HEMATOCRIT 25.2 % (35.0-46.0); REVIEW FLAG FINAL
[2016-09-20] MEDS: INSULIN ASPART SUPPLEMENTAL SCALE SQ SCH ×4 (05:16→20:15)
[2016-09-20] MEDS: HEPARIN-D5W INJ 250 ML IV SCH (05:32)
[2016-09-20 05:46] LABS: HEMATOCRIT 24.7 % (35.0-46.0); MEAN CELL VOLUME 91.9 FL (80.0-100.0); MEAN CORPUSCULAR HEMOGLOBIN 32.2 PG (27.0-34.0); MEAN CORPUSCULAR HGB CONC 35.1 % (32.0-36.0); PLATELET COUNT 220 TH/MM3 (150-450); RED BLOOD COUNT 2.69 MIL/MM3 (4.00-5.30); RED CELL DISTRIBUTION WIDTH 16.2 % (11.6-17.2); REVIEW FLAG FINAL; WHITE BLOOD COUNT 6.9 TH/MM3 (4.0-11.0)
[2016-09-20 06:02] LABS: BICARBONATE 24.1 MEQ/L (21.0-32.0); MAGNESIUM 1.3 MG/DL (1.5-2.5)
[2016-09-20] MEDS: MORPHINE SULFATE 4 MG/ML INJ IV PRN ×3 (06:58→22:09)
[2016-09-20] MEDS: metroNIDAZOLE 500 MG INJ 100 ML IV SCH ×2 (08:08→16:00)
[2016-09-20] MEDS: POTASSIUM CHLOR 20 MEQ PREMIX 100 ML IV PRN ×4 (08:09→17:11)
--- NOTE | 2016-09-20 08:57 | HHI.CCPN ---
Subjective Remarks/Hospital Course This is a 60-year-old female admitted earlier in the week or acute blood loss symptomatic anemia. The patient had multiple imaging and laboratory studies which revealed a large duodenal ulcer. GI was consulted and interventions performed, Dr. Gutierrez. The patient was noted also to have Marcy esophagitis and chronic gastritis. The patient has a history of ulcerative colitis and is status post a subtotal colectomy with anastomosis 1999. Her medical history is significant for episodes of ischemia and a prothrombotic state, with a history of DVT in the past, and the patient was on Xarelto at home which she start stop taking approximately 2 weeks ago. The patient over the last day or so complain of bilateral leg pain. Ultrasound Doppler imaging was performed which revealed nonocclusive and occlusive DVTs. Hematology/oncology has been consulted. Critical care medicine was consulted. Subjective: 09/19: The patient underwent central line placement for venous access last evening. Hematologyoncology following, the patient was placed on heparin infusion, with monitoring daily PTT. Additionally added monitoring hemoglobin every 12 hours to ensure no bleeding. Patient extremely anxious yesterday received Ativan during the night, and had an EGD idiosyncratic reaction- extremely confused added agitated, slightly combative. Ativan discontinued. The patient's mentation now within normal limits. 09/20: The patient tolerated clear liquid diet yesterday afternoon with advancement from GI. NG tube to be discontinued this a.m. per GI recommendations. Minimal output from percutaneous drain. Patient is appropriate, alert and oriented this a.m.. Hemoglobin stable for the last 24 hours, patient continues on heparin infusion per hematology recommendations. Objective Vital Signs Date Time Temp Pulse Resp B/P Pulse Ox O2 Delivery O2 Flow Rate FiO2 09/20/16 07:03 16 09/20/16 06:00 67 09/20/16 04:00 98.9 129/59 97 09/18/16 16:45 21 Intake and Output 09/19/16 09/19/16 09/20/16 08:00 16:00 00:00 Intake Total 1139 ml 1316 ml 1871 ml Output Total 585 ml 960 ml 910 ml Balance 554 ml 356 ml 961 ml Result Diagram: 09/20/16 0451 09/20/16 0451 Imaging Last Impressions Upper Extremity Ultrasound 09/18/16 0000 Signed Impressions: Service Date/Time: Sunday, September 18, 2016 13:11 - CONCLUSION: 1. Extensive deep venous thrombosis and superficial thrombosis left upper extremity. Pee Mcclure MD FACR Abscess Drainage CT 09/15/16 0000 Signed Impressions: Service Date/Time: Thursday, September 15, 2016 12:50 - CONCLUSION: Uncomplicated CT guided drainage, as above. Ady Jasmine MD Abdomen/Pelvis CT 09/14/16 1802 Signed Impressions: Service Date/Time: Wednesday, September 14, 2016 22:22 - CONCLUSION: 1. Perforation along the proximal duodenum with fluid collection of contrast and air measuring 9.1 x 2.5 cm. 2. Calcified leiomyoma. 3. Mild distention of the urinary bladder. Dr. Villalba notified of these findings. Will Pink MD A/P Assessment and Plan Assessment Prothrombotic state Duodenal ulceration Chronic gastritis Ulcerative colitis Marcy esophagitis Acute blood loss anemia CAROL secondary to acute blood loss anemia DVT bilateral upper and lower extremities GERD Bipolar disorder Diabetes mellitus Hyperlipidemia Plan by systems: Neurologic: -Ativan discontinued secondary to idiosyncratic reaction -Resume every 4 hours when necessary for anxiety, upon obtaining vascular access - Patient continues on Dilaudid when necessary, when diet advanced, transition to PO narcotics - Melatonin 5 mg by mouth daily at bedtime when necessary Respiratory: -No acute issues -Maintain O2 sat greater than 92% -Apply incentive spirometry, every hour while awake Cardiovascular: -Maintain MAP greater than 65 mmHg Renal: -- Strict I/Os FEN/GI: -Percutaneous drain monitor output -GI following Dr. Gutierrez, continue to follow recommendations -09/19 Clear liquid diet advancement, removal of NG tube Heme/ID: -Hematology consulted- Dr. Branch, heparin infusion( no titration), daily PTT monitoring -Monitor coagulation studies -Monitor H&H every 12 hours-hemoglobin stable 8.7 Endocrine: Glucose monitoring per ICU protocol. Low dose regimen -- SSI Msk: --PT evaluate and treat out of bed to chair Prophylaxis: GI Prophylaxis Per GI recommendations DVT Prophylaxis-bilateral lower DVTs, occlusive and nonocclusive -- SCDs Anticoagulation per hematology/GI/and general surgery combined recommendations Lines: Central line 09/18 Dispo: Level [address] Weiss ([facility]), CLIENT DELIVERY MANAGER at bedside and patient. Critical Care medicine will sign off. Physician Traci Shah MD Sep 20, 2016 08:57
[2016-09-20] MEDS: SODIUM CHLORIDE 0.9% 10 ML VIAL IRRIGATION SCH ×2 (09:00→20:15)
[2016-09-20] MEDS: SODIUM CHLORIDE 0.9% FLUSH 10 ML FLUSH IV FLUSH SCH ×2 (09:00→20:15)
[2016-09-20] MEDS: FLUoxetine HCL 20 MG CAP PO SCH (09:21)
[2016-09-20 12:14] LABS: APTT (PATIENT) 37.3 SEC (24.3-30.1); INTERNATIONAL NORMALIZED RATIO 1.3 RATIO; PROTHROMBIN TIME - PATIENT 14.8 SEC (9.8-11.6)
--- NOTE | 2016-09-20 14:32 | PD.ONC.PN ---
Subjective Subjective Remarks Afebrile overnight. No obvious bleeding. Patient resting in bed in nad. NGT removed. Objective Data Date Time Temp Pulse Resp B/P Pulse Ox O2 Delivery O2 Flow Rate FiO2 09/20/16 14:00 101 09/20/16 12:00 99.4 71 27 97 09/20/16 12:00 101 09/20/16 11:00 16 09/20/16 10:00 101 09/20/16 08:00 101 09/20/16 08:00 99.0 83 18 99 09/20/16 06:00 67 09/20/16 04:00 98.9 65 17 129/59 97 09/20/16 04:00 65 09/20/16 02:00 62 09/20/16 00:00 72 09/20/16 00:00 98.9 72 20 108/55 96 09/19/16 22:00 75 09/19/16 20:00 85 09/19/16 20:00 99.7 76 12 125/65 98 09/19/16 18:00 79 09/19/16 16:00 99.4 84 18 109/56 95 09/19/16 16:00 84 09/20/16 09/20/16 09/20/16 07:00 15:00 23:00 Intake Total 1195 ml 666 ml Output Total 300 ml 700 ml Balance 895 ml -34 ml Result Diagram: 09/20/16 0451 09/20/16 0451 Laboratory Results Laboratory Tests Test 09/19/16 09/19/16 09/20/16 09/20/16 15:45 18:50 02:34 04:51 Hemoglobin 8.6 GM/DL 8.6 GM/DL 8.7 GM/DL Hematocrit 25.6 % 25.2 % 24.7 % Blood Type A POSITIVE Antibody Screen NEGATIVE White Blood Count 6.9 TH/MM3 Red Blood Count 2.69 MIL/MM3 Mean Corpuscular Volume 91.9 FL Mean Corpuscular Hemoglobin 32.2 PG Mean Corpuscular Hemoglobin 35.1 % Concent Red Cell Distribution Width 16.2 % Platelet Count 220 TH/MM3 Mean Platelet Volume 9.1 FL Sodium Level 141 MEQ/L Potassium Level 3.0 MEQ/L Chloride Level 108 MEQ/L Carbon Dioxide Level 24.1 MEQ/L Anion Gap 9 MEQ/L Blood Urea Nitrogen 2 MG/DL Creatinine 0.77 MG/DL Estimat Glomerular Filtration 76 ML/MIN Rate Random Glucose 193 MG/DL Calcium Level 7.5 MG/DL Phosphorus Level 2.1 MG/DL Magnesium Level 1.3 MG/DL Albumin 1.5 GM/DL Test 09/20/16 11:26 Prothrombin Time 14.8 SEC Prothromb Time International 1.3 RATIO Ratio Activated Partial 37.3 SEC Thromboplast Time Administered Medications Medications (Trade) Dose Ordered Sig/Ani Route PRN Reason Start Time Stop Time Status Last Admin Dose Admin Sodium Chloride (NS Flush) 2 ml UNSCH PRN IV FLUSH FLUSH AFTER USING IV ACCESS 09/14/16 12:30 09/19/16 14:35 Sodium Chloride (NS Flush) 2 ml BID IV FLUSH 09/14/16 21:00 09/19/16 20:17 Ondansetron HCl (Zofran Inj) 4 mg Q6H PRN IV NAUSEA 09/14/16 12:45 09/19/16 14:35 Alprazolam (Xanax) 1 mg Q8H PRN PO ANXIETY 09/14/16 12:45 09/20/16 13:03 Fluoxetine HCl 20 mg 20 mg DAILY PO 09/15/16 09:00 09/20/16 09:21 Metronidazole 100 ml @ 100 mls/hr Q8H IV 09/14/16 16:00 09/20/16 08:08 Ceftriaxone Sodium/Sodium Chloride (Rocephin Inj/NS Inj) 100 ml @ 200 mls/hr Q24H IV 09/14/16 20:00 09/19/16 21:47 Morphine Sulfate (Morphine Inj) 4 mg Q3H PRN IV BREAKTHROUGH PAIN 09/14/16 22:30 09/20/16 10:55 Sodium Chloride 10 ml 10 ml BID IRRIGATION 09/15/16 21:00 09/20/16 09:00 Fluconazole/ Sodium Chloride 200 ml @ 100 mls/hr Q24H IV 09/15/16 17:00 09/18/16 23:54 Dextrose/Sodium Chloride 1,000 ml @ 100 mls/hr Q10H IV 09/16/16 12:15 09/20/16 00:36 Potassium Chloride 100 ml @ 50 mls/hr Q2H PRN IV For Potassium 2.8 - 3.2 mEq/L 09/16/16 12:15 09/20/16 14:15 Potassium Chloride 100 ml @ 50 mls/hr Q2H PRN IV For Potassium 3.3 - 3.5 mEq/L 09/16/16 12:15 09/19/16 10:53 Magnesium Sulfate 2 gm/Sodium Chloride 100 ml @ 50 mls/hr UNSCH PRN IV For Magnesium 1.2 - 1.6 mg/dL 09/16/16 12:15 09/16/16 22:38 Potassium Phosphate/Sodium Chloride (Potassium Phosphate Inj/NS 250 ml Inj) 260 ml @ 42 mls/hr UNSCH PRN IV SEE LABEL COMMENTS 09/16/16 12:15 09/16/16 22:39 Pantoprazole Sodium 40 mg 40 mg Q12H IV PUSH 09/18/16 14:00 09/20/16 14:15 Heparin Sodium/ Dextrose (Heparin-D5W Inj) 250 ml @ 0 mls/hr TITRATE IV 09/18/16 19:45 09/20/16 05:32 Hydromorphone HCl (Dilaudid Pf Inj) 1 mg ONCE SQ 09/18/16 20:15 09/20/16 20:14 09/18/16 21:09 Objective Remarks GENERAL: Middle aged female sitting up in bed in [facility]. SKIN: Warm and dry. HEAD: Normocephalic. EYES: No injection or drainage. NECK: Supple, trachea midline. CARDIOVASCULAR: Regular rate and rhythm RESPIRATORY: Breath sounds equal bilaterally. No accessory muscle use. GASTROINTESTINAL: Abdomen soft, mildly tender, non-distended. clear green drainage from peritoneal drain. EXTREMITIES: No cyanosis MUSCULOSKELETAL: Adequate muscle tone. NEUROLOGICAL: No obvious focal deficit. Awake and alert. normal speech. moving extremities. Assessment/Plan Problem List: (1) DVT (deep venous thrombosis) Status: Acute Plan: --on heparin gtt --U/S UE: shows extensive venous thromboses + axillary vein involving both the deep and superficial cephalic vein. The left upper extremity shows spontaneous flow. --U/S LE: bilateral lower extremity deep vein thromboses. + right mid- superficial femoral vein and the right greater saphenous vein. +occlusive deep vein thrombosis in the right posterior tibial vein. +nonocclusive thromboses of the left popliteal. +Occlusive thrombus is noted in the left peroneal vein. --patient reports hereditary predisposition and names it Factor V Leiden. Review of her hypercoagulable panel in 2003 showed heterozygosity for Factor V Leiden. Prothrombin G mutation is normal. --option of inferior vena cava filter placement which in the current setting may not be helpful. suspect that she would thrombose an inferior vena cava filter and it would shortly lose his usefulness. --has no absolute contraindication for anticoagulant therapy at present. (2) GI bleed Status: Acute Plan: --presented to the emergency room with two episodes of dark stool on . --CT ab/pelvis showed perforation of the proximal duodenum with fluid collection and contrast measuring 9.1 x 2.5 cm. --surgery saw and recommended conservative management. --seen in IR and CT-guided drainage was placed on 09/15/2016. --recent hospitalization and endoscopic procedure on 08/26/2016 shows a large ulceration in the distal bulb of the duodenum into the descending duodenum. There are multiple ischemic-looking ulcers. Assessment 60y/o female with bilateral upper extremity and lower extremity deep vein thromboses + GI bleed from a duodenal ulcer. h/o Ulcerative colitis. Duodenal ulcer. Marcy esophagitis. Diabetes. Depression. Anxiety.Hyperlipidemia. Recurrent venous thromboembolic event Plan 1. PTT is 37s today. increase to 900U/hr 2. monitor CBC. hgb fell slightly overnight--expect this is due to her 2L positive fluid balance from large amounts of IVF. There is no sign of bleeding. 3. wait until H/H remains stable before bridging to oral anticoagulation 4. stop heparin immediately for bleeding Attending Statement The exam, history, and the medical decision-making described in the above note were completed with the assistance of the mid-level provider. I reviewed and agree with the findings presented. I attest that I had a [id number] encounter with the patient on the same day, and personally performed and documented my assessment and findings in the medical record. Pt seen and examined. Another night on UFH, no overt bleeding. Tolerating clears. Noted decrease hgb - monitor. Check coag in AM Problem Qualifiers (1) GI bleed: Qualified Code: K29.91 - Gastrointestinal hemorrhage associated with gastroduodenitis Talita Issa Sep 20, 2016 14:32 Tesha Branch MD Sep 20, 2016 14:36
--- NOTE | 2016-09-20 14:40 | HHI.FPPN ---
Subjective Remarks Patient seen and examined this morning. She is disappointed with her progress, however was reassured that she is clinically improving. States she was able to get up and ambulate with a walker yesterday as well as this morning. Abdominal pain is rated at a 6/10 today. Went to the bathroom this morning and noted a small amount of BM which was soft, and black/brown with no red streaks in it. Ate Jell-o and broth this morning, reports that she did well with it. No nausea , vomiting, fever, chills, pain in chest, shortness of breath. (Elliott Willingham MD R1) Objective Vitals Vital Signs Date Time Temp Pulse Resp B/P Pulse Ox O2 Delivery O2 Flow Rate FiO2 09/20/16 12:00 99.4 71 27 97 09/20/16 12:00 101 09/20/16 11:00 16 09/20/16 10:00 101 09/20/16 08:00 101 09/20/16 08:00 99.0 83 18 99 09/20/16 06:00 67 09/20/16 04:00 98.9 65 17 129/59 97 09/20/16 04:00 65 09/20/16 02:00 62 09/20/16 00:00 72 09/20/16 00:00 98.9 72 20 108/55 96 09/19/16 22:00 75 09/19/16 20:00 85 09/19/16 20:00 99.7 76 12 125/65 98 09/19/16 18:00 79 09/19/16 16:00 99.4 84 18 109/56 95 09/19/16 16:00 84 I/O 09/19/16 09/19/16 09/19/16 09/20/16 09/20/16 09/20/16 07:00 15:00 23:00 07:00 15:00 23:00 Intake Total 1139 ml 1316 ml 1871 ml 1195 ml 666 ml Output Total 585 ml 960 ml 910 ml 300 ml 700 ml Balance 554 ml 356 ml 961 ml 895 ml -34 ml Intake Oral 30 ml 480 ml 240 ml 240 ml IV Total 1109 ml 1316 ml 1391 ml 955 ml 426 ml Output Urine Total 575 ml 950 ml 900 ml 300 ml 700 ml Gastric Drainage Total 0 ml Drainage Total 10 ml 10 ml 10 ml 0 ml # Bowel Movements 1 (Elliott Willingham MD R1) Result Diagram: 09/20/1645009/20/16450 Imaging Last 72 hours Impressions Upper Extremity Ultrasound 09/18/16 0000 Signed Impressions: Service Date/Time: Sunday, September 18, 2016 13:11 - CONCLUSION: 1. Extensive deep venous thrombosis and superficial thrombosis left upper extremity. Pee Mcclure MD FACR Lower Extremity Ultrasound 09/18/16 0000 Signed Impressions: Service Date/Time: Sunday, September 18, 2016 16:21 - CONCLUSION: Bilateral lower extremity deep venous thrombosis with nonocclusive thrombus within the right mid superficial femoral vein and right greater saphenous vein as well as left popliteal vein and occlusive DVT within the right posterior tibial and left peroneal veins. Nahun Bray MD Chest X-Ray 09/18/16 0000 Signed Impressions: Service Date/Time: Sunday, September 18, 2016 23:03 - CONCLUSION: 1. Abnormal position of the left IJ line with distal tip in the left axillary vein. 2. Left basilar opacity most likely representing either atelectasis or consolidation. Angel Perez MD Objective Remarks GENERAL: This is an elderly female lying comfortably in bed, no acute distress. SKIN: . Cool and dry. HEAD: Atraumatic. Normocephalic. EYES: Pupils equal round and reactive. Extraocular motions intact. No scleral icterus. No injection or drainage. NECK: Trachea midline. No JVD or lymphadenopathy. Supple, nontender. CARDIOVASCULAR: Regular rate and rhythm without murmurs, gallops, or rubs. RESPIRATORY: Clear to auscultation. Breath sounds equal bilaterally. No wheezes , rales, or rhonchi. GASTROINTESTINAL: Abdomen soft, mildly tender to palpation in right upper quadrant, improved today. No guarding. Non-distended. No rebound. No masses appreciated. BS+ but soft MUSCULOSKELETAL: Edema in upper and lower extremities, 2+ pitting, improved. Mildly tender B/L. No erythema. No unilateral asymmetry. PT/DP pulses 2+ B/L NEUROLOGICAL: Awake and alert. Motor and sensory grossly within normal limits. Normal speech. Medications and IVs Current Medications Medications (Trade) Dose Ordered Sig/Ani Route Start Time Stop Time Status Last Admin (NS Flush) 2 ml UNSCH PRN IV FLUSH 09/14/16 12:30 09/19/16 14:35 (NS Flush) 2 ml BID IV FLUSH 09/14/16 21:00 09/19/16 20:17 (Zofran Inj) 4 mg Q6H PRN IV 09/14/16 12:45 09/19/16 14:35 (Xanax) 1 mg Q8H PRN PO 09/14/16 12:45 09/20/16 13:03 (PROzac) 20 mg DAILY PO 09/15/16 09:00 09/20/16 09:21 (D50w (Vial) Inj) 50 ml UNSCH PRN IV 09/14/16 12:45 Glucagon 1 mg 1 mg UNSCH PRN OTHER 09/14/16 12:45 Metronidazole 100 ml @ 100 mls/hr Q8H IV 09/14/16 16:00 09/20/16 08:08 (Rocephin Inj/NS Inj) 100 ml @ 200 mls/hr Q24H IV 09/14/16 20:00 09/19/16 21:47 (Morphine Inj) 4 mg Q3H PRN IV 09/14/16 22:30 09/20/16 10:55 (Narcan Inj) 0.4 mg UNSCH PRN IV 09/14/16 22:30 Sodium Chloride 10 ml 10 ml BID IRRIGATION 09/15/16 21:00 09/20/16 09:00 Fluconazole/ Sodium Chloride 200 ml @ 100 mls/hr Q24H IV 09/15/16 17:00 09/18/16 23:54 Dextrose/Sodium Chloride 1,000 ml @ 100 mls/hr Q10H IV 09/16/16 12:15 09/20/16 00:36 Potassium Chloride 100 ml @ 50 mls/hr Q2H PRN IV 09/16/16 12:15 (KCl 20 Meq Premix Inj) 100 ml @ 50 mls/hr Q2H PRN IV 09/16/16 12:15 09/20/16 11:09 Potassium Bicarb/ Potassium Chloride 50 meq 50 meq UNSCH PRN PO 09/16/16 12:15 Potassium Chloride 100 ml @ 25 mls/hr UNSCH PRN IV 09/16/16 12:15 Potassium Chloride 100 ml @ 50 mls/hr Q2H PRN IV 09/16/16 12:15 09/19/16 10:53 (Magnesium Sulfate Inj/NS Inj) 100 ml @ 50 mls/hr UNSCH PRN IV 09/16/16 12:15 Magnesium Oxide 800 mg 800 mg UNSCH PRN PO 09/16/16 12:15 (Magnesium Sulfate Inj/NS Inj) 100 ml @ 50 mls/hr UNSCH PRN IV 09/16/16 12:15 09/16/16 22:38 Potassium Phosphate 2000 mg 2,000 mg Q4H PRN PO 09/16/16 12:15 (Sodium Phosphate Inj/NS 250 ml Inj) 250 ml @ 42 mls/hr UNSCH PRN IV 09/16/16 12:15 Potassium Phosphate 2000 mg 2,000 mg UNSCH PRN PO/TUBE 09/16/16 12:15 (Potassium Phosphate Inj/NS 250 ml Inj) 260 ml @ 42 mls/hr UNSCH PRN IV 09/16/16 12:15 09/16/16 22:39 Pantoprazole Sodium 40 mg 40 mg Q12H IV PUSH 09/18/16 14:00 09/20/16 00:35 (Heparin-D5W Inj) 250 ml @ 0 mls/hr TITRATE IV 09/18/16 19:45 09/20/16 05:32 (Dilaudid Pf Inj) 1 mg ONCE SQ 09/18/16 20:15 09/20/16 20:14 09/18/16 21:09 (Melatonin) 5 mg HS PRN PO 09/20/16 21:00 (Roxicodone Intensol Liq) 5 mg Q6H PRN PO 09/20/16 12:00 (Elliott Willingham MD R1) A/P Assessment and Plan This is a 60-year-old female with history of ulcerative colitis and ulcers, presents with severe anemia found to have perforated ulcer and abscess formation. Gastroenterology and colorectal surgery consulted. IR drainage completed 09/15, uncomplicated. Discharge Planning Pending clinical improvement (Elliott Willingham MD R1) Attending Attestation Patient seen and examined. Case reviewed and discussed with the resident team. Agree with plan of care as discussed with me and documented in the resident note. (Bartolome Villegas MD) Problem List: (1) Perforated duodenal ulcer Status: Acute Plan: CT scan 09/14 demonstrates a perforation of the duodenum with an abnormal fluid collection with contrast anterior to the mesenteric vasculature measuring 9.12.5 cm with adjacent stranding in the mesentery. There is no free perforation into the abdominal cavity. Intensive care signed off Colorectal surgery, Dr. Cisneros, on consult Gastroenterology consult Continue antibiotics as below NG tube d/c on Clears Pain: IV Tylenol, morphine If the patient deteriorates clinically, continues to bleed, surgical intervention would be required. (2) Abscess Status: Acute Plan: CT scan 09/14 shows 9.12.5 cm fluid collection anterior to the mesenteric vasculature with adjacent stranding in the mesentery. Colorectal surgery consulted IR drainage performed 09/15 without complication. (3) GI bleed Status: Acute Plan: From perforated ulcer, see above Gastroenterology consult Colorectal surgery consult Status post 4 units packed red blood cells Continue IV antibiotics per GI: Flagyl 500 IV every 8 hours, Rocephin 1 g IV every 24 hours Positive fungal growth in cultures Fluconazole 400 q24 Continue to monitor H&H Transfuse as needed (4) DVT (deep venous thrombosis) Status: Acute Plan: Bilateral upper and lower extremity ultrasounds performed, thrombi found in extremities as noted above. Hematology consulted who recommended: - Heparinized - Recommended against IVC filter Continue to appreciate recommendations (5) Hypoalbuminemia Status: Acute Plan: Albumin noted to be 1.6 on 09/16 in the afternoon, 1.6 09/19 - Albumin administered - F/U albumin - consider additional albumin (6) Depression with anxiety Status: Acute Plan: Continue fluoxetine IV Ativan for anxiety (7) CAROL (acute kidney injury) Status: Acute Plan: Improved. Continue hydration and continue to monitor. (8) Diabetes Status: Acute Plan: History of chronic diabetes. On insulin at home. -Low dose sliding scale while inpatient (9) FEN Status: Acute Plan: Fluids: NS @ 150mls/hr Electrolytes: magnesium low today, ICU electrolyte set added Nutrition: NPO DVT ppx: chemoppx contraindicated, SCDs GI ppx: Protonix drip (Elliott Willingham MD R1) Problem Qualifiers (1) GI bleed: Qualified Code: K29.91 - Gastrointestinal hemorrhage associated with gastroduodenitis (2) Diabetes: Qualified Code: E11.9 - Type 2 diabetes mellitus without complication, with long-term current use of insulin Elliott Willingham MD R1 Sep 20, 2016 14:40 Bartolome Villegas MD Sep 20, 2016 16:06
--- NOTE | 2016-09-20 14:58 | HHI.GIFU ---
Subjective Remarks Patient is resting in bed, nurse by bed side changing dressing to abd at the site of the drain. Patient tolerating clears ok, NGT Dced. She is with complaints of constipation (Roshni David) Objective Vitals I&O Vital Signs Date Time Temp Pulse Resp B/P Pulse Ox O2 Delivery O2 Flow Rate FiO2 09/20/16 14:00 101 09/20/16 12:00 99.4 71 27 97 09/20/16 12:00 101 09/20/16 11:00 16 09/20/16 10:00 101 09/20/16 08:00 101 09/20/16 08:00 99.0 83 18 99 09/20/16 06:00 67 09/20/16 04:00 98.9 65 17 129/59 97 09/20/16 04:00 65 09/20/16 02:00 62 09/20/16 00:00 72 09/20/16 00:00 98.9 72 20 108/55 96 09/19/16 22:00 75 09/19/16 20:00 85 09/19/16 20:00 99.7 76 12 125/65 98 09/19/16 18:00 79 09/19/16 16:00 99.4 84 18 109/56 95 09/19/16 16:00 84 I/O 09/19/16 09/19/16 09/19/16 09/20/16 09/20/16 09/20/16 07:00 15:00 23:00 07:00 15:00 23:00 Intake Total 1139 ml 1316 ml 1871 ml 1195 ml 666 ml Output Total 585 ml 960 ml 910 ml 300 ml 710 ml Balance 554 ml 356 ml 961 ml 895 ml -44 ml Intake Oral 30 ml 480 ml 240 ml 240 ml IV Total 1109 ml 1316 ml 1391 ml 955 ml 426 ml Output Urine Total 575 ml 950 ml 900 ml 300 ml 700 ml Gastric Drainage Total 0 ml 10 ml Drainage Total 10 ml 10 ml 10 ml 0 ml # Bowel Movements 1 Laboratory Laboratory Tests Test 09/19/16 09/19/16 09/20/16 09/20/16 15:45 18:50 02:34 04:51 Hemoglobin 8.6 8.6 8.7 Hematocrit 25.6 25.2 24.7 Blood Type A POSITIVE Antibody Screen NEGATIVE White Blood Count 6.9 Red Blood Count 2.69 Mean Corpuscular Volume 91.9 Mean Corpuscular Hemoglobin 32.2 Mean Corpuscular Hemoglobin 35.1 Concent Red Cell Distribution Width 16.2 Platelet Count 220 Mean Platelet Volume 9.1 Sodium Level 141 Potassium Level 3.0 Chloride Level 108 Carbon Dioxide Level 24.1 Anion Gap 9 Blood Urea Nitrogen 2 Creatinine 0.77 Estimat Glomerular Filtration 76 Rate Random Glucose 193 Calcium Level 7.5 Phosphorus Level 2.1 Magnesium Level 1.3 Albumin 1.5 Test 09/20/16 11:26 Prothrombin Time 14.8 Prothromb Time International 1.3 Ratio Activated Partial 37.3 Thromboplast Time Imaging Last Impressions Upper Extremity Ultrasound 09/18/16 0000 Signed Impressions: Service Date/Time: Sunday, September 18, 2016 13:11 - CONCLUSION: 1. Extensive deep venous thrombosis and superficial thrombosis left upper extremity. Pee Mcclure MD FACR Lower Extremity Ultrasound 09/18/16 0000 Signed Impressions: Service Date/Time: Sunday, September 18, 2016 16:21 - CONCLUSION: Bilateral lower extremity deep venous thrombosis with nonocclusive thrombus within the right mid superficial femoral vein and right greater saphenous vein as well as left popliteal vein and occlusive DVT within the right posterior tibial and left peroneal veins. Nahun Bray MD Chest X-Ray 09/18/16 0000 Signed Impressions: Service Date/Time: Sunday, September 18, 2016 23:03 - CONCLUSION: 1. Abnormal position of the left IJ line with distal tip in the left axillary vein. 2. Left basilar opacity most likely representing either atelectasis or consolidation. Angel Perez MD Abscess Drainage CT 09/15/16 0000 Signed Impressions: Service Date/Time: Thursday, September 15, 2016 12:50 - CONCLUSION: Uncomplicated CT guided drainage, as above. Ady Jasmine MD Abdomen/Pelvis CT 09/14/16 180 Signed Impressions: Service Date/Time: Wednesday, September 14, 2016 22:22 - CONCLUSION: 1. Perforation along the proximal duodenum with fluid collection of contrast and air measuring 9.1 x 2.5 cm. 2. Calcified leiomyoma. 3. Mild distention of the urinary bladder. Dr. Villalba notified of these findings. Wlil Pink MD Physical Exam HEENT: PERRLA, NECK: Neck is supple, no JVD, no lymphadenopathy. CHEST: CTA CARDIAC: RRR ABDOMEN: Soft, nondistended, nontender; no hepatosplenomegaly; bowel sounds x 4 quadrants, drain to the abd EXTREMITIES: No clubbing, cyanosis, or edema. SKIN: Normal; no rash; no jaundice. DRIVE IN TELLER: No focal deficits; alert and oriented x 3. (FrankieRoshni MRI SPECIALIST) Assessment and Plan Plan ASSESSMENT: - Upper GIB, Melena in patient with recent large duodenal ulcer. Recent hospitalization EGD/Colonoscopy (08/26/16)------> Esophagus normal, Stomach: normal, Duodenum: large ulcerations in the distal bulb extending into the descending duodenum. Multiple possibly ischemic looking ulcers. Biopsies taken. Also could be crohns ulcers. Ileum normal, at 25cm. Rectum has appearance of ileal pouch. Two biopsies taken. Pathology focally ulcerated and necrotic small intestinal mucosal biopsies exhibiting features suggestive of ischemia, distorted small intestinal mucosal biopsies with acute inflammation, clinically J pouch biopsy. Abdomen/Pelvis CTA (08/26/16)-----> I see no evidence for mesenteric ischemia. Rpt EGD (08/31/16) --> copious cheesy material in mid to distal esophagus, biopsy taken possible luis, antral gastritis, and large deep ulcer in distal bulb at 12:00 position. Ulcer in descending duodenum appears improved, looks more like typical PUD now. Pathology revealed antral mucosa with mild active chronic gastritis, esophageal mucosa with acute esophagitis containing budding yeast and pseudohyphae in the superficial keratin layers, consistent with luis esophagitis. A GMS stain performed on block #2 is positive for these fungal organisms. She was treated with Protonix, Carafate, Diflucan, Canasa, and Xifaxan. She did better at home, but started having mid and lower abdominal cramping about a week ago and started having melena 2 days ago. HH on 09/03 was 8.6/26.3 and trended down to 4.5/14.2 on 09/14. HH today 823.7. S/P blood transfusions. NPO. Protonix Gtt. EGD 09/14/16-- 1. Gastritis antrum-biopsy, esophagitis distal esophagus- biopsy, duodenitis second and third portion of duodenum ulcer clean base duodenal bulb-communication with a cavitary area -looks old- biopsy, no active bleeding 2. Retroflexed views revealed a hiatal hernia. Biopsies pending. Abdomen/Pelvis CT 09/14/16--1. Perforation along the proximal duodenum with fluid collection of contrast and air measuring 9.1 x 2.5 cm. 2. Calcified leiomyoma. 3. Mild distention of the urinary bladder. Plan for drainage of abscess cavity by IR today. - Severe anemia secondary to acute blood loss. HH on 09/03 was 8.6/26.3 and today is 8/23.7. S/P blood transfusions. Protonix Gtt. - Recent large duodenal bulb ulcer. Protonix Gtt. - Luis Esophagitis. Diflucan, PPI, Carafate at home. She has been on Diflucan since 08/31. - Abnormal weight loss. 20 lb weight loss over 3 months. - Ulcerative colitis. Dx 1999. S/P Total Colectomy. Prednisone taper. - Leukocytosis/Fever/Lactic acid 2.7. WBC 14.6. - CAROL. Creat 1.07 - DM, Depression/Anxiety, Hyperlipidemia 09-17-16 no signs of bleeding, hgb today 10.1, NGT to LIWS. She rapports small amount of melena that could be a residual still with abd pain 09-18-16 some coffee ground out put noted in NGT, this is only in the tubing, hasn't reached the canister yet. No melena or hematochezia, she is having abd pain H&H stable 09-19-16 hgb with slight drop, 8.6, no signs of bleeding, NGT tube has been clamped with no residual 09-20-16 Tolerating clears okay, NGT tube dced, complaints of constipation H&H stable PLAN: - Full liquid diet - MIralax 17 mg BID - S/P Draining of Abscess by IR - Cont. abx - Cont Protonix Gtt - Monitor HH - Transfuse as necessary - GS, CRS on the case - Further recommendations to follow based on results of above Patient seen and examined by Dr. Barreto and myself (Roshni David) Physician Comments Patient seen and examined Agree with above Continue with current supportive care Monitor labs Much to add from a GI standpoint we will sign off and please reconsult as needed (Thomas Barreto MD) Roshni David Sep 20, 2016 14:58 Thomas Barreto MD Sep 20, 2016 20:07
--- NOTE | 2016-09-20 16:10 | HHI.PR ---
Subjective Subjective Notes Mentation much improved today Hungry Objective Vitals/I&O Vital Signs Date Time Temp Pulse Resp B/P Pulse Ox O2 Delivery O2 Flow Rate FiO2 09/20/16 14:00 101 09/20/16 12:00 99.4 27 97 09/20/16 08:00 09/18/16 16:45 21 Labs Laboratory Tests Test 09/19/16 09/20/16 09/20/16 09/20/16 18:50 02:34 04:51 11:26 Blood Type A POSITIVE Antibody Screen NEGATIVE Hemoglobin 8.6 8.7 Hematocrit 25.2 24.7 White Blood Count 6.9 Red Blood Count 2.69 Mean Corpuscular Volume 91.9 Mean Corpuscular Hemoglobin 32.2 Mean Corpuscular Hemoglobin 35.1 Concent Red Cell Distribution Width 16.2 Platelet Count 220 Mean Platelet Volume 9.1 Sodium Level 141 Potassium Level 3.0 Chloride Level 108 Carbon Dioxide Level 24.1 Anion Gap 9 Blood Urea Nitrogen 2 Creatinine 0.77 Estimat Glomerular Filtration 76 Rate Random Glucose 193 Calcium Level 7.5 Phosphorus Level 2.1 Magnesium Level 1.3 Albumin 1.5 Prothrombin Time 14.8 Prothromb Time International 1.3 Ratio Activated Partial 37.3 Thromboplast Time Radiology Last Impressions Abscess Drainage CT 09/15/16 0000 Signed Impressions: Service Date/Time: Thursday, September 15, 2016 12:50 - CONCLUSION: Uncomplicated CT guided drainage, as above. Ady Jasmine MD Abdomen/Pelvis CT 09/14/16 1802 Signed Impressions: Service Date/Time: Wednesday, September 14, 2016 22:22 - CONCLUSION: 1. Perforation along the proximal duodenum with fluid collection of contrast and air measuring 9.1 x 2.5 cm. 2. Calcified leiomyoma. 3. Mild distention of the urinary bladder. Dr. Villalba notified of these findings. Will Pink MD Cardiovascular: Regular Lungs: Clear Abdomen: Non-tender, Other (drain in place with light green drainage ) Extremities: No edema Narrative Exam Khan with dark yellow urine A/P Assessment and Plan 60-year-old female with complicated medical history who has a contained chronic perforated duodenal ulcer successfully drained by IR -Advance to soft diet -Continue to monitor WBC/fevers -Continue antibiotics: Diflucan/Rocephin/Flagyl -Hepatin gtt for DVTs -PT -OOB -General Surgery will see peripherally over the weekend; please call with questions Attending Note - Dr. Cisneros Abdomen soft; tolerating liquids; had a BM this afternoon advance diet Keep drain in until minimal output on regular diet The exam, history, and the medical decision-making described in the above note were completed with the assistance of the mid-level provider. I reviewed and agree with the findings presented. I attest that I had a [id number] encounter with the patient on the same day, and personally performed and documented my assessment and findings in the medical record. Siena Brooks Sep 20, 2016 16:10 Elliott Cisneros MD Sep 20, 2016 18:40
[2016-09-20 16:31] LABS: HEMATOCRIT 27.9 % (35.0-46.0); REVIEW FLAG FINAL
[2016-09-20] MEDS: FLUCONAZOLE 400 MG PREMIX BAG 200 ML IV SCH (17:00)
[2016-09-20] MEDS: POLYETHYLENE GLYCOL 17 GM PKG PO SCH (20:14)
[2016-09-20] MEDS: cefTRIAXone INJ 1,000 MG in SODIUM CHLORIDE 0.9% INJ 100 ML IV SCH (20:14)
[2016-09-20] MEDS: oxyCODONE HCL ORAL CONC 20 MG/ML SYRINGE PO PRN (20:15)
[2016-09-20] MEDS ORDERED: MELATONIN 5 MG TAB PO PRN (21:00)
[2016-09-20 21:58] LABS: APTT (PATIENT) 31.5 SEC (24.3-30.1)
[2016-09-21] VITALS (12 sets, daily range): BP systolic 96–116; BP diastolic 51–64; PULSE 71–97; RESP 15–22; TEMP 97.9–99.4; O2SAT 93–99
[2016-09-21] MEDS: metroNIDAZOLE 500 MG INJ 100 ML IV SCH ×3 (00:02→15:50)
[2016-09-21] MEDS: PANTOPRAZOLE SODIUM 40 MG VIAL IV PUSH SCH ×2 (02:34→13:04)
[2016-09-21 04:49] LABS: HEMATOCRIT 25.1 % (35.0-46.0); MEAN CELL VOLUME 95.6 FL (80.0-100.0); MEAN CORPUSCULAR HEMOGLOBIN 33.4 PG (27.0-34.0); MEAN CORPUSCULAR HGB CONC 34.9 % (32.0-36.0); PLATELET COUNT 282 TH/MM3 (150-450); RED BLOOD COUNT 2.62 MIL/MM3 (4.00-5.30); RED CELL DISTRIBUTION WIDTH 16.2 % (11.6-17.2); REVIEW FLAG FINAL; WHITE BLOOD COUNT 6.9 TH/MM3 (4.0-11.0)
[2016-09-21] MEDS: DEXT 5%-NACL 0.45% 1000 ML INJ 1,000 ML IV SCH ×3 (04:59→20:55)
[2016-09-21 05:02] LABS: APTT (PATIENT) 46.8 SEC (24.3-30.1)
[2016-09-21] MEDS: ALPRAZolam 1 MG TAB PO PRN ×2 (05:06→20:55)
[2016-09-21] MEDS: oxyCODONE HCL ORAL CONC 20 MG/ML SYRINGE PO PRN ×4 (05:07→20:55)
[2016-09-21 05:45] LABS: BICARBONATE 24.1 MEQ/L (21.0-32.0); MAGNESIUM 1.3 MG/DL (1.5-2.5); POTASSIUM 3.7 MEQ/L (3.5-5.1)
[2016-09-21] MEDS: INSULIN ASPART SUPPLEMENTAL SCALE SQ SCH ×4 (05:51→20:56)
[2016-09-21] MEDS: FLUoxetine HCL 20 MG CAP PO SCH (07:42)
[2016-09-21] MEDS: POLYETHYLENE GLYCOL 17 GM PKG PO SCH ×2 (07:42→20:55)
[2016-09-21] MEDS: HEPARIN-D5W INJ 250 ML IV SCH (07:43)
[2016-09-21] MEDS: SODIUM CHLORIDE 0.9% FLUSH 10 ML FLUSH IV FLUSH SCH ×2 (07:46→20:55)
[2016-09-21] MEDS: SODIUM CHLORIDE 0.9% 10 ML VIAL IRRIGATION SCH ×2 (09:00→20:56)
--- NOTE | 2016-09-21 09:05 | HHI.FPPN ---
Subjective Remarks Pt seen and examined this morning. No acute events overnight. Patient reports that she feels better than she did yesterday. Yesterday she had many family members come to visit her and she felt very overwhelmed and anxious. Her abdominal pain is improving. She reports that the oral pain medication isn't helping to completely relieve her pain. Patient denies chest pain, shortness of breath. She feels that her lower and upper extremity swelling is improving and her arms and feet do not feel as "tight". She tolerated her liquid diet and we'll be ordering a soft diet this morning. She has a good appetite but will take things very slow as far as advancing her diet. She feels as if she is constipated but she had 2 bowel movements overnight. Objective Vitals Vital Signs Date Time Temp Pulse Resp B/P Pulse Ox O2 Delivery O2 Flow Rate FiO2 09/21/16 06:00 77 09/21/16 04:00 81 09/21/16 04:00 98.8 71 18 96/53 95 09/21/16 02:00 73 09/21/16 00:00 98.9 79 16 104/57 94 09/21/16 00:00 74 09/20/16 22:00 73 09/20/16 21:15 18 09/20/16 20:00 79 09/20/16 20:00 98.9 79 14 107/52 96 09/20/16 18:00 101 09/20/16 16:00 99.4 80 16 77 09/20/16 16:00 101 09/20/16 14:00 101 09/20/16 12:00 99.4 71 27 97 09/20/16 12:00 101 09/20/16 11:00 16 09/20/16 10:00 101 I/O 09/20/16 09/20/16 09/20/16 09/21/16 09/21/16 09/21/16 06:59 14:59 22:59 06:59 14:59 22:59 Intake Total 1195 ml 666 ml 987 ml 1193 ml Output Total 300 ml 710 ml 505 ml 352 ml Balance 895 ml -44 ml 482 ml 841 ml Intake Oral 240 ml 240 ml 340 ml 480 ml IV Total 955 ml 426 ml 647 ml 713 ml Output Urine Total 300 ml 700 ml 500 ml 350 ml Gastric Drainage Total 10 ml Drainage Total 0 ml 5 ml 2 ml # Bowel Movements 1 1 Result Diagram: 09/21/1639909/21/16399 Objective Remarks GENERAL: This is an elderly female lying comfortably in bed, no acute distress. SKIN: . Cool and dry. HEAD: Atraumatic. Normocephalic. EYES: Pupils equal round and reactive. Extraocular motions intact. No scleral icterus. No injection or drainage. NECK: Trachea midline. No JVD or lymphadenopathy. Supple, nontender. CARDIOVASCULAR: Regular rate and rhythm RESPIRATORY: Clear to auscultation. Breath sounds equal bilaterally. No wheezes , rales, or rhonchi. GASTROINTESTINAL: Abdomen soft, mildly tender to palpation in right upper and lower quadrant, improved today. Drain in right upper abdomen with minimal green drainage. No guarding. Non-distended. No rebound. No masses appreciated. BS+. MUSCULOSKELETAL: Edema in upper and lower extremities, trace in upper extremities, 1-2+ in lower extremities, improving1. Mildly tender B/L. No erythema. No unilateral asymmetry. PT/DP pulses 2+ B/L NEUROLOGICAL: Awake and alert. Motor and sensory grossly within normal limits. Normal speech. A/P Assessment and Plan This is a 60-year-old female with history of ulcerative colitis and ulcers, presents with severe anemia found to have perforated ulcer and abscess formation. Gastroenterology and colorectal surgery consulted. IR drainage completed 09/15, uncomplicated. Patient currently on a heparin drip for upper and lower extremity DVTs. Discharge Planning Timeframe unclear. Discharge pending patient being able to tolerate a normal diet and abscess drain removal and further recs from hematology regarding upper and lower extremity DVTs. Problem List: (1) Perforated duodenal ulcer Status: Acute Plan: CT scan 09/14 demonstrates a perforation of the duodenum with an abnormal fluid collection with contrast anterior to the mesenteric vasculature measuring 9.12.5 cm with adjacent stranding in the mesentery. There is no free perforation into the abdominal cavity. H&H has been stable, no additional bleeding noted. Patient has been having regular bowel movements, nonbloody General surgery consulted, Dr. Cisneros following, appreciate recommendations -Diet advanced to soft, pt tolerated liquid diet well. GI consulted, appreciate recommendations and interventions -Continue MiraLAX -Continue Protonix Colorectal surgery also consulted, appreciate recommendations Continue antibiotics: Fluconazole 400 mg IV daily (09/15- ) Rocephin 1 g IV daily (09/14- ) Metronidazole 500mg IV Q8hrs (09/14- ) Pain control: Roxycodone, IV morphine for breakthrough (2) Abscess Status: Acute Plan: CT scan 09/14 shows 9.12.5 cm fluid collection anterior to the mesenteric vasculature with adjacent stranding in the mesentery. IR drainage performed 09/15 without complication Continue to monitor drain output as patient's diet progresses (3) GI bleed Status: Acute Plan: See plan for perforated lateral ulcer above Status post 4 units packed red blood cells Continue IV antibiotics per GI: Flagyl 500 IV every 8 hours, Rocephin 1 g IV every 24 hours Positive fungal growth in cultures Fluconazole 400 q24 Continue to monitor H&H Transfuse as needed (4) DVT (deep venous thrombosis) Status: Acute Plan: Patient found to have numerous DVTs of the upper and lower extremities. Hematology consulted, appreciate recommendations: -No absolute contraindication to anticoagulation -Patient currently on heparin drip -Continue to titrate per protocol, monitor PTT -Heparin to be stopped if there are any signs of bleeding Imaging: Lower extremity ultrasound 09/18: Bilateral lower extremity DVTs with nonocclusive thrombus within the right mid superficial femoral vein and right greater saphenous vein as well as left popliteal vein and occlusive DVT within the right posterior tibial and left peroneal veins. Upper extremity ultrasound 09/18: Extensive DVTs and superficial thrombus is of the left upper extremity. (5) Hypoalbuminemia Status: Acute Plan: Albumin low at 1.5 on 09/20. -Likely to improve as pts diet progresses -Will give Albumin 5% 12.5 gm IV x1 -Continue to monitor -Consider additional albumin as needed (6) Depression with anxiety Status: Acute Plan: Continue fluoxetine 20 mg po daily Xanax 1 mg Q8hrs prn anxiety (7) Diabetes Status: Acute Plan: History of chronic diabetes. On insulin at home. -Low dose sliding scale while inpatient -Continue long acting insulin as pts diet is progressed (8) FEN Status: Acute Plan: Fluids: NS @ 150mls/hr Electrolytes: ICU electrolyte protocol, continue to monitor Nutrition: Soft diet DVT ppx: Heparin drip GI ppx: Protonix 40 mg Q12hrs Problem Qualifiers (1) GI bleed: Qualified Code: K29.91 - Gastrointestinal hemorrhage associated with gastroduodenitis (2) Diabetes: Qualified Code: E11.9 - Type 2 diabetes mellitus without complication, with long-term current use of insulin Zak Weiss MD R2 Sep 21, 2016 09:05
[2016-09-21] MEDS: MORPHINE SULFATE 4 MG/ML INJ IV PRN (10:57)
[2016-09-21] MEDS ORDERED: ALBUMIN HUMAN 5% 12.5 GM/250 ML BOTTLE IV ONE (12:00)
--- NOTE | 2016-09-21 14:28 | PD.ONC.PN ---
Subjective Subjective Remarks Afebrile overnight Per RN there's been no bleeding Patient still with abdominal pain Objective Data Date Time Temp Pulse Resp B/P Pulse Ox O2 Delivery O2 Flow Rate FiO2 09/21/16 06:00 77 09/21/16 04:00 81 09/21/16 04:00 98.8 71 18 96/53 95 09/21/16 02:00 73 09/21/16 00:00 98.9 79 16 104/57 94 09/21/16 00:00 74 09/20/16 22:00 73 09/20/16 21:15 18 09/20/16 20:00 79 09/20/16 20:00 98.9 79 14 107/52 96 09/20/16 18:00 101 09/20/16 16:00 99.4 80 16 77 09/20/16 16:00 101 09/21/16 09/21/16 09/21/16 07:00 15:00 23:00 Intake Total 1193 ml Output Total 352 ml Balance 841 ml Result Diagram: 09/21/16 0400 09/21/16 0400 Laboratory Results Laboratory Tests Test 09/20/16 09/20/16 09/20/16 09/21/16 15:48 20:08 22:08 04:00 Hemoglobin 9.2 GM/DL 8.7 GM/DL Hematocrit 27.9 % 25.1 % Activated Partial 31.5 SEC 46.8 SEC Thromboplast Time Potassium Level 3.7 MEQ/L 3.7 MEQ/L White Blood Count 6.9 TH/MM3 Red Blood Count 2.62 MIL/MM3 Mean Corpuscular Volume 95.6 FL Mean Corpuscular Hemoglobin 33.4 PG Mean Corpuscular Hemoglobin 34.9 % Concent Red Cell Distribution Width 16.2 % Platelet Count 282 TH/MM3 Mean Platelet Volume 8.6 FL Sodium Level 142 MEQ/L Chloride Level 110 MEQ/L Carbon Dioxide Level 24.1 MEQ/L Anion Gap 8 MEQ/L Blood Urea Nitrogen 3 MG/DL Creatinine 0.82 MG/DL Estimat Glomerular Filtration 71 ML/MIN Rate Random Glucose 161 MG/DL Calcium Level 7.5 MG/DL Phosphorus Level 2.9 MG/DL Magnesium Level 1.3 MG/DL Albumin 1.6 GM/DL Test 09/21/16 11:30 Activated Partial 62.0 SEC Thromboplast Time Administered Medications Medications (Trade) Dose Ordered Sig/Ani Route PRN Reason Start Time Stop Time Status Last Admin Dose Admin Sodium Chloride (NS Flush) 2 ml UNSCH PRN IV FLUSH FLUSH AFTER USING IV ACCESS 09/14/16 12:30 09/19/16 14:35 Sodium Chloride (NS Flush) 2 ml BID IV FLUSH 09/14/16 21:00 09/21/16 07:46 Ondansetron HCl (Zofran Inj) 4 mg Q6H PRN IV NAUSEA 09/14/16 12:45 09/19/16 14:35 Alprazolam (Xanax) 1 mg Q8H PRN PO ANXIETY 09/14/16 12:45 09/21/16 05:06 Fluoxetine HCl 20 mg 20 mg DAILY PO 09/15/16 09:00 09/21/16 07:42 Metronidazole 100 ml @ 100 mls/hr Q8H IV 09/14/16 16:00 09/21/16 07:41 Ceftriaxone Sodium/Sodium Chloride (Rocephin Inj/NS Inj) 100 ml @ 200 mls/hr Q24H IV 09/14/16 20:00 09/20/16 20:14 Morphine Sulfate (Morphine Inj) 4 mg Q3H PRN IV BREAKTHROUGH PAIN 09/14/16 22:30 09/21/16 10:57 Sodium Chloride 10 ml 10 ml BID IRRIGATION 09/15/16 21:00 09/21/16 09:00 Fluconazole/ Sodium Chloride 200 ml @ 100 mls/hr Q24H IV 09/15/16 17:00 09/20/16 17:00 Dextrose/Sodium Chloride 1,000 ml @ 100 mls/hr Q10H IV 09/16/16 12:15 09/21/16 07:41 Potassium Chloride 100 ml @ 50 mls/hr Q2H PRN IV For Potassium 2.8 - 3.2 mEq/L 09/16/16 12:15 09/20/16 17:11 Potassium Chloride 100 ml @ 50 mls/hr Q2H PRN IV For Potassium 3.3 - 3.5 mEq/L 09/16/16 12:15 09/19/16 10:53 Magnesium Sulfate 2 gm/Sodium Chloride 100 ml @ 50 mls/hr UNSCH PRN IV For Magnesium 1.2 - 1.6 mg/dL 09/16/16 12:15 09/16/16 22:38 Potassium Phosphate/Sodium Chloride (Potassium Phosphate Inj/NS 250 ml Inj) 260 ml @ 42 mls/hr UNSCH PRN IV SEE LABEL COMMENTS 09/16/16 12:15 09/16/16 22:39 Pantoprazole Sodium 40 mg 40 mg Q12H IV PUSH 09/18/16 14:00 09/21/16 13:04 Heparin Sodium/ Dextrose (Heparin-D5W Inj) 250 ml @ 0 mls/hr TITRATE IV 09/18/16 19:45 09/21/16 07:43 Polyethylene Glycol (Miralax) 17 gm BID PO 09/20/16 21:00 09/20/16 20:14 Oxycodone HCl (Roxicodone Intensol Liq) 5 mg Q3H PRN PO PAIN SCALE 5 TO 10 09/21/16 12:00 09/21/16 13:25 Objective Remarks GENERAL: Middle aged female asleep in bed in no distress. SKIN: Warm and dry. HEAD: Normocephalic. EYES: No injection or drainage. NECK: Supple, trachea midline. CARDIOVASCULAR: + S1/S2. Regular rhythm. RESPIRATORY: Anterior abdi clear. Breathing unlabored. GASTROINTESTINAL: Abdomen soft, mildly tender, non-distended. Clear green drainage from peritoneal drain. EXTREMITIES: No cyanosis. Bilateral lower extremity edema MUSCULOSKELETAL: Generalized weakness. NEUROLOGICAL: No obvious focal deficit. Awake and alert. normal speech. moving extremities. Assessment/Plan Problem List: (1) DVT (deep venous thrombosis) Status: Acute Plan: --on heparin gtt (2) GI bleed Status: Acute Plan: --presented to the emergency room with two episodes of dark stool on . --CT ab/pelvis showed perforation of the proximal duodenum with fluid collection and contrast measuring 9.1 x 2.5 cm. Assessment 60y/o female with bilateral upper extremity and lower extremity deep vein thromboses + GI bleed from a duodenal ulcer. Plan 1. Patient tolerating heparin drip 2. If her hemoglobin remains stable over the weekend we will likely begin anticoagulation with Coumadin next week. 3. Monitor CBC 4. Monitor for bleeding Attending Statement The exam, history, and the medical decision-making described in the above note were completed with the assistance of the mid-level provider. I reviewed and agree with the findings presented. I attest that I had a [id number] encounter with the patient on the same day, and personally performed and documented my assessment and findings in the medical record. patient doing well and no evidence of dvt on exam and no active bleeding. continue heparin and monitor cbc. will probably convert to Coumadin in several days. she was taking Xarelto before admission. PTT therapeutic. Problem Qualifiers (1) GI bleed: Qualified Code: K29.91 - Gastrointestinal hemorrhage associated with gastroduodenitis Veena Fowler Sep 21, 2016 14:28 Charlie Richards MD Sep 21, 2016 17:03
[2016-09-21] MEDS: MAGNESIUM OXIDE 400 MG TAB PO PRN (15:50)
[2016-09-21] MEDS: FLUCONAZOLE 400 MG PREMIX BAG 200 ML IV SCH (15:51)
[2016-09-21] MEDS: cefTRIAXone INJ 1,000 MG in SODIUM CHLORIDE 0.9% INJ 100 ML IV SCH (20:55)
[2016-09-22] VITALS (12 sets, daily range): BP systolic 102–131; BP diastolic 52–66; PULSE 76–94; RESP 14–20; TEMP 98.9–99.9; O2SAT 94–100
[2016-09-22] MEDS: metroNIDAZOLE 500 MG INJ 100 ML IV SCH ×3 (00:42→16:25)
[2016-09-22] MEDS: PANTOPRAZOLE SODIUM 40 MG VIAL IV PUSH SCH ×2 (00:43→13:47)
[2016-09-22 04:39] LABS: HEMATOCRIT 27.5 % (35.0-46.0); MEAN CELL VOLUME 87.3 FL (80.0-100.0); MEAN CORPUSCULAR HGB CONC 33.2 % (32.0-36.0); PLATELET COUNT 338 TH/MM3 (150-450); RED BLOOD COUNT 3.15 MIL/MM3 (4.00-5.30); RED CELL DISTRIBUTION WIDTH 16.4 % (11.6-17.2); REVIEW FLAG FINAL; WHITE BLOOD COUNT 10.2 TH/MM3 (4.0-11.0)
[2016-09-22 05:03] LABS: APTT (PATIENT) 47.2 SEC (24.3-30.1)
[2016-09-22 05:08] LABS: BICARBONATE 23.4 MEQ/L (21.0-32.0); MAGNESIUM 1.3 MG/DL (1.5-2.5); POTASSIUM 3.5 MEQ/L (3.5-5.1)
[2016-09-22 05:10] LABS: CALCIUM-PROTEIN CORRECTED 8.5 MG/DL (8.5-10.1)
[2016-09-22] MEDS: MAGNESIUM OXIDE 400 MG TAB PO PRN (05:24)
[2016-09-22] MEDS: HEPARIN-D5W INJ 250 ML IV SCH (06:31)
[2016-09-22] MEDS: INSULIN ASPART SUPPLEMENTAL SCALE SQ SCH ×4 (06:32→20:29)
[2016-09-22] MEDS: FLUoxetine HCL 20 MG CAP PO SCH (07:59)
[2016-09-22] MEDS: SODIUM CHLORIDE 0.9% FLUSH 10 ML FLUSH IV FLUSH SCH ×2 (07:59→20:29)
[2016-09-22] MEDS: POLYETHYLENE GLYCOL 17 GM PKG PO SCH ×2 (07:59→20:29)
[2016-09-22] MEDS: SODIUM CHLORIDE 0.9% 10 ML VIAL IRRIGATION SCH ×2 (09:00→20:28)
--- NOTE | 2016-09-22 09:55 | PD.ONC.PN ---
Subjective Subjective Remarks Tmax 99.6 overnight. Pt states her abdominal pain is overall improved Denies acute complaints Objective Data Date Time Temp Pulse Resp B/P Pulse Ox O2 Delivery O2 Flow Rate FiO2 09/22/16 08:00 87 09/22/16 08:00 99.6 87 17 102/55 100 09/22/16 06:00 85 09/22/16 04:00 83 09/22/16 04:00 98.9 81 15 118/63 94 09/22/16 02:00 80 09/22/16 00:00 79 09/22/16 00:00 99.2 82 16 110/53 97 09/21/16 22:00 81 09/21/16 20:00 99.4 83 22 106/51 96 09/21/16 20:00 80 09/21/16 18:00 97 09/21/16 16:00 80 09/21/16 16:00 97.9 80 19 116/55 98 09/21/16 14:00 86 09/21/16 12:00 74 09/21/16 12:00 98.6 74 15 99/51 93 09/21/16 10:00 81 09/22/16 09/22/16 09/22/16 07:00 15:00 23:00 Intake Total 954 ml Output Total 402 ml Balance 552 ml Result Diagram: 09/22/16 0415 09/22/16 0415 Laboratory Results Laboratory Tests Test 09/21/16 09/22/16 11:30 04:15 Activated Partial 62.0 SEC 47.2 SEC Thromboplast Time White Blood Count 10.2 TH/MM3 Red Blood Count 3.15 MIL/MM3 Hemoglobin 9.1 GM/DL Hematocrit 27.5 % Mean Corpuscular Volume 87.3 FL Mean Corpuscular Hemoglobin 29.0 PG Mean Corpuscular Hemoglobin 33.2 % Concent Red Cell Distribution Width 16.4 % Platelet Count 338 TH/MM3 Mean Platelet Volume 8.1 FL Sodium Level 139 MEQ/L Potassium Level 3.5 MEQ/L Chloride Level 106 MEQ/L Carbon Dioxide Level 23.4 MEQ/L Anion Gap 10 MEQ/L Blood Urea Nitrogen 3 MG/DL Creatinine 1.02 MG/DL Estimat Glomerular Filtration 55 ML/MIN Rate Random Glucose 163 MG/DL Calcium Level 7.5 MG/DL Protein Corrected Calcium 8.5 MG/DL Magnesium Level 1.3 MG/DL Total Protein 5.4 GM/DL Albumin 1.8 GM/DL Administered Medications Medications (Trade) Dose Ordered Sig/Ani Route PRN Reason Start Time Stop Time Status Last Admin Dose Admin Sodium Chloride (NS Flush) 2 ml UNSCH PRN IV FLUSH FLUSH AFTER USING IV ACCESS 09/14/16 12:30 09/19/16 14:35 Sodium Chloride (NS Flush) 2 ml BID IV FLUSH 09/14/16 21:00 09/22/16 07:59 Ondansetron HCl (Zofran Inj) 4 mg Q6H PRN IV NAUSEA 09/14/16 12:45 09/19/16 14:35 Alprazolam (Xanax) 1 mg Q8H PRN PO ANXIETY 09/14/16 12:45 09/21/16 20:55 Fluoxetine HCl 20 mg 20 mg DAILY PO 09/15/16 09:00 09/22/16 07:59 Metronidazole 100 ml @ 100 mls/hr Q8H IV 09/14/16 16:00 09/22/16 07:59 Ceftriaxone Sodium/Sodium Chloride (Rocephin Inj/NS Inj) 100 ml @ 200 mls/hr Q24H IV 09/14/16 20:00 09/21/16 20:55 Morphine Sulfate (Morphine Inj) 4 mg Q3H PRN IV BREAKTHROUGH PAIN 09/14/16 22:30 09/21/16 10:57 Sodium Chloride 10 ml 10 ml BID IRRIGATION 09/15/16 21:00 09/21/16 20:56 Fluconazole/ Sodium Chloride 200 ml @ 100 mls/hr Q24H IV 09/15/16 17:00 09/21/16 15:51 Dextrose/Sodium Chloride 1,000 ml @ 100 mls/hr Q10H IV 09/16/16 12:15 09/21/16 20:55 Potassium Chloride 100 ml @ 50 mls/hr Q2H PRN IV For Potassium 2.8 - 3.2 mEq/L 09/16/16 12:15 09/20/16 17:11 Potassium Chloride 100 ml @ 25 mls/hr UNSCH PRN IV For Potassium 3.3 - 3.5 mEq/L 09/16/16 12:15 09/22/16 05:24 Potassium Chloride (KCl 20 Meq Premix Inj) 100 ml @ 50 mls/hr Q2H PRN IV For Potassium 3.3 - 3.5 mEq/L 09/16/16 12:15 09/19/16 10:53 Magnesium Oxide 800 mg 800 mg UNSCH PRN PO For Magnesium 1.2 - 1.6 mg/dL 09/16/16 12:15 09/22/16 05:24 Magnesium Sulfate 2 gm/Sodium Chloride 100 ml @ 50 mls/hr UNSCH PRN IV For Magnesium 1.2 - 1.6 mg/dL 09/16/16 12:15 09/16/16 22:38 Potassium Phosphate/Sodium Chloride (Potassium Phosphate Inj/NS 250 ml Inj) 260 ml @ 42 mls/hr UNSCH PRN IV SEE LABEL COMMENTS 09/16/16 12:15 09/16/16 22:39 Pantoprazole Sodium 40 mg 40 mg Q12H IV PUSH 09/18/16 14:00 09/22/16 00:43 Heparin Sodium/ Dextrose (Heparin-D5W Inj) 250 ml @ 0 mls/hr TITRATE IV 09/18/16 19:45 09/22/16 06:31 Polyethylene Glycol (Miralax) 17 gm BID PO 09/20/16 21:00 09/20/16 20:14 Oxycodone HCl (Roxicodone Intensol Liq) 5 mg Q3H PRN PO PAIN SCALE 5 TO 10 09/21/16 12:00 09/21/16 20:55 Objective Remarks GENERAL: Middle aged female asleep in bed in no distress. SKIN: Warm and dry. HEAD: Normocephalic. EYES: No injection or drainage. NECK: Supple, trachea midline. CARDIOVASCULAR: + S1/S2. Regular rhythm. RESPIRATORY: Anterior abdi clear. Breathing unlabored. GASTROINTESTINAL: Abdomen soft, mildly tender, non-distended. R sided percutaneous drain. EXTREMITIES: No cyanosis. Bilateral lower extremity edema MUSCULOSKELETAL: Generalized weakness. NEUROLOGICAL: Pt moving all extremities. No obvious focal deficit. Assessment/Plan Assessment 60y/o female with bilateral upper extremity and lower extremity deep vein thromboses + GI bleed from a duodenal ulcer. Plan 1. Tolerating heparin gtt 2. No obvious bleeding or oozing. 3. no reason not to start Coumadin now. 4. Continue to monitor CBC. Attending Statement The exam, history, and the medical decision-making described in the above note were completed with the assistance of the mid-level provider. I reviewed and agree with the findings presented. I attest that I had a [id number] encounter with the patient on the same day, and personally performed and documented my assessment and findings in the medical record. doing well without bleeding. will begin coumadin today with a single dose of 10 mg then 7 mg daily . She has required between 5-7 mg of Coumadin daily in past and did well with Coumadin as long as she was fully compliant. Veena Fowler Sep 22, 2016 09:55 Charlie Richards MD Sep 22, 2016 14:37 4. Monitor for bleeding Problem Qualifiers (1) GI bleed: Qualified Code: K29.91 - Gastrointestinal hemorrhage associated with gastroduodenitis Veena Fowler Sep 22, 2016 09:55
[2016-09-22] MEDS: MORPHINE SULFATE 4 MG/ML INJ IV PRN ×3 (11:04→18:48)
[2016-09-22] MEDS: DEXT 5%-NACL 0.45% 1000 ML INJ 1,000 ML IV SCH ×2 (11:04→20:29)
--- NOTE | 2016-09-22 11:15 | HHI.FPPN ---
Subjective Remarks Patient see and examined this morning. Patient states that she is feeling much better physically and emotionally. She states that she saw her family yesterday which made her the happiest she's been since she's been here. She states that she barely has any abdominal time at this time. Recently transitioned to soft foods, tolerating well. Notes that she has had a bowel movement this morning, it was dark and formed with no red streaks. Patient believes that the swelling in her arms and legs are improving. No pain in arms or legs. No other complaints of nausea, vomiting, fever, chills, chest pain, shortness of breath, abdominal pain, change in bowel habits, change in urinary habits (on Khan). Objective Vitals Vital Signs Date Time Temp Pulse Resp B/P Pulse Ox O2 Delivery O2 Flow Rate FiO2 09/22/16 10:00 82 09/22/16 08:00 87 09/22/16 08:00 99.6 87 17 102/55 100 09/22/16 06:00 85 09/22/16 04:00 83 09/22/16 04:00 98.9 81 15 118/63 94 09/22/16 02:00 80 09/22/16 00:00 79 09/22/16 00:00 99.2 82 16 110/53 97 09/21/16 22:00 81 09/21/16 20:00 99.4 83 22 106/51 96 09/21/16 20:00 80 09/21/16 18:00 97 09/21/16 16:00 80 09/21/16 16:00 97.9 80 19 116/55 98 09/21/16 14:00 86 09/21/16 12:00 74 09/21/16 12:00 98.6 74 15 99/51 93 I/O 09/21/16 09/21/16 09/21/16 09/22/16 09/22/16 09/22/16 07:00 15:00 23:00 07:00 15:00 23:00 Intake Total 1193 ml 2113 ml 1299 ml 954 ml Output Total 352 ml 360 ml 303 ml 402 ml Balance 841 ml 1753 ml 996 ml 552 ml Intake Oral 480 ml 960 ml 620 ml 240 ml IV Total 713 ml 903 ml 679 ml 714 ml Albumin 250 ml Output Urine Total 350 ml 350 ml 300 ml 400 ml Drainage Total 2 ml 10 ml 3 ml 2 ml # Bowel Movements 1 3 1 1 Result Diagram: 09/22/1641409/22/16414 Objective Remarks GENERAL: This is an elderly female lying comfortably in bed, no acute distress. SKIN: . Cool and dry. HEAD: Atraumatic. Normocephalic. EYES: Pupils equal round and reactive. Extraocular motions intact. No scleral icterus. No injection or drainage. NECK: Trachea midline. No JVD or lymphadenopathy. Supple, nontender. CARDIOVASCULAR: Regular rate and rhythm RESPIRATORY: Clear to auscultation. Breath sounds equal bilaterally. No wheezes , rales, or rhonchi. GASTROINTESTINAL: Abdomen soft, mildly tender to palpation in right upper quadrant, improved today. No guarding. Non-distended. No rebound. No masses appreciated. BS+. Drain in right upper abdomen with minimal green drainage. MUSCULOSKELETAL: Edema in upper and lower extremities, trace in upper extremities, 1-2+ in lower extremities, improving. Mildly tender B/L. No erythema. No unilateral asymmetry. PT/DP pulses 2+ B/L NEUROLOGICAL: Awake and alert. Motor and sensory grossly within normal limits. Normal speech. Medications and IVs Current Medications Medications (Trade) Dose Ordered Sig/Ani Route Start Time Stop Time Status Last Admin (NS Flush) 2 ml UNSCH PRN IV FLUSH 09/14/16 12:30 09/19/16 14:35 (NS Flush) 2 ml BID IV FLUSH 09/14/16 21:00 09/22/16 07:59 (Zofran Inj) 4 mg Q6H PRN IV 09/14/16 12:45 09/19/16 14:35 (Xanax) 1 mg Q8H PRN PO 09/14/16 12:45 09/21/16 20:55 (PROzac) 20 mg DAILY PO 09/15/16 09:00 09/22/16 07:59 (D50w (Vial) Inj) 50 ml UNSCH PRN IV 09/14/16 12:45 Glucagon 1 mg 1 mg UNSCH PRN OTHER 09/14/16 12:45 Metronidazole 100 ml @ 100 mls/hr Q8H IV 09/14/16 16:00 09/22/16 07:59 (Rocephin Inj/NS Inj) 100 ml @ 200 mls/hr Q24H IV 09/14/16 20:00 09/21/16 20:55 (Morphine Inj) 4 mg Q3H PRN IV 09/14/16 22:30 09/21/16 10:57 (Narcan Inj) 0.4 mg UNSCH PRN IV 09/14/16 22:30 Sodium Chloride 10 ml 10 ml BID IRRIGATION 09/15/16 21:00 09/21/16 20:56 Fluconazole/ Sodium Chloride 200 ml @ 100 mls/hr Q24H IV 09/15/16 17:00 09/21/16 15:51 Dextrose/Sodium Chloride 1,000 ml @ 100 mls/hr Q10H IV 09/16/16 12:15 09/21/16 20:55 Potassium Chloride 100 ml @ 50 mls/hr Q2H PRN IV 09/16/16 12:15 (KCl 20 Meq Premix Inj) 100 ml @ 50 mls/hr Q2H PRN IV 09/16/16 12:15 09/20/16 17:11 Potassium Bicarb/ Potassium Chloride 50 meq 50 meq UNSCH PRN PO 09/16/16 12:15 Potassium Chloride 100 ml @ 25 mls/hr UNSCH PRN IV 09/16/16 12:15 09/22/16 05:24 Potassium Chloride 100 ml @ 50 mls/hr Q2H PRN IV 09/16/16 12:15 09/19/16 10:53 (Magnesium Sulfate Inj/NS Inj) 100 ml @ 50 mls/hr UNSCH PRN IV 09/16/16 12:15 Magnesium Oxide 800 mg 800 mg UNSCH PRN PO 09/16/16 12:15 09/22/16 05:24 (Magnesium Sulfate Inj/NS Inj) 100 ml @ 50 mls/hr UNSCH PRN IV 09/16/16 12:15 09/16/16 22:38 Potassium Phosphate 2000 mg 2,000 mg Q4H PRN PO 09/16/16 12:15 (Sodium Phosphate Inj/NS 250 ml Inj) 250 ml @ 42 mls/hr UNSCH PRN IV 09/16/16 12:15 Potassium Phosphate 2000 mg 2,000 mg UNSCH PRN PO/TUBE 09/16/16 12:15 (Potassium Phosphate Inj/NS 250 ml Inj) 260 ml @ 42 mls/hr UNSCH PRN IV 09/16/16 12:15 09/16/16 22:39 Pantoprazole Sodium 40 mg 40 mg Q12H IV PUSH 09/18/16 14:00 09/22/16 00:43 (Heparin-D5W Inj) 250 ml @ 0 mls/hr TITRATE IV 09/18/16 19:45 09/22/16 06:31 (Melatonin) 5 mg HS PRN PO 09/20/16 21:00 (Miralax) 17 gm BID PO 09/20/16 21:00 09/20/16 20:14 (Roxicodone Intensol Liq) 5 mg Q3H PRN PO 09/21/16 12:00 09/21/16 20:55 A/P Assessment and Plan This is a 60-year-old female with history of ulcerative colitis and ulcers, presents with severe anemia found to have perforated ulcer and abscess formation. Gastroenterology and colorectal surgery consulted. IR drainage completed 09/15, uncomplicated. Patient currently on a heparin drip for upper and lower extremity DVTs. Discharge Planning Timeframe unclear. Discharge pending patient being able to tolerate a normal diet and abscess drain removal and further recs from hematology regarding upper and lower extremity DVTs. Problem List: (1) Perforated duodenal ulcer Status: Acute Plan: CT scan 09/14 demonstrates a perforation of the duodenum with an abnormal fluid collection with contrast anterior to the mesenteric vasculature measuring 9.12.5 cm with adjacent stranding in the mesentery. There is no free perforation into the abdominal cavity. H&H has been stable, no additional bleeding noted. Patient has been having regular bowel movements, nonbloody General surgery consulted, Dr. Cisneros following, appreciate recommendations -Diet advanced to soft, pt tolerated liquid diet well. GI consulted, appreciate recommendations and interventions -Continue MiraLAX -Continue Protonix -Currently signed off Colorectal surgery also consulted, appreciate recommendations Continue antibiotics: Fluconazole 400 mg IV daily (09/15- ) Rocephin 1 g IV daily (09/14- ) Metronidazole 500mg IV Q8hrs (09/14- ) Pain control: Roxycodone, IV morphine for breakthrough (2) Abscess Status: Acute Plan: CT scan 09/14 shows 9.12.5 cm fluid collection anterior to the mesenteric vasculature with adjacent stranding in the mesentery. IR drainage performed 09/15 without complication Continue to monitor drain output as patient's diet progresses (3) GI bleed Status: Acute Plan: See plan for perforated lateral ulcer above Status post 4 units packed red blood cells Continue IV antibiotics per GI: Flagyl 500 IV every 8 hours, Rocephin 1 g IV every 24 hours Positive fungal growth in cultures Fluconazole 400 q24 Continue to monitor H&H Transfuse as needed (4) DVT (deep venous thrombosis) Status: Acute Plan: Patient found to have numerous DVTs of the upper and lower extremities. Hematology consulted, appreciate recommendations: -No absolute contraindication to anticoagulation -Patient currently on heparin drip -Continue to titrate per protocol, monitor PTT -Heparin to be stopped if there are any signs of bleeding - Will probably be converted to Coumadin in several days per Hematology Imaging: Lower extremity ultrasound 09/18: Bilateral lower extremity DVTs with nonocclusive thrombus within the right mid superficial femoral vein and right greater saphenous vein as well as left popliteal vein and occlusive DVT within the right posterior tibial and left peroneal veins. Upper extremity ultrasound 09/18: Extensive DVTs and superficial thrombus is of the left upper extremity. (5) Hypoalbuminemia Status: Acute Plan: Albumin low at 1.5 on 09/20. 1.8 on 09/22 -Likely to improve as pts diet progresses -Will give Albumin 5% 12.5 gm IV x1 -Continue to monitor -Recently resumed soft foods, improved protein intake -Consider additional albumin as needed (6) Depression with anxiety Status: Acute Plan: States she is not depressed today 09/22 Continue fluoxetine 20 mg po daily Xanax 1 mg Q8hrs prn anxiety (7) Diabetes Status: Acute Plan: History of chronic diabetes. On insulin at home. -Low dose sliding scale while inpatient -Continue long acting insulin as pts diet is progressed (8) FEN Status: Acute Plan: Fluids: NS @ 150mls/hr Electrolytes: ICU electrolyte protocol, continue to monitor Nutrition: Soft diet DVT ppx: Heparin drip GI ppx: Protonix 40 mg Q12hrs Problem Qualifiers (1) GI bleed: Qualified Code: K29.91 - Gastrointestinal hemorrhage associated with gastroduodenitis (2) Diabetes: Qualified Code: E11.9 - Type 2 diabetes mellitus without complication, with long-term current use of insulin Elliott Willingham MD R1 Sep 22, 2016 11:15
[2016-09-22] MEDS ORDERED: ALBUMIN HUMAN 5% 12.5 GM/250 ML BOTTLE IV ONE (12:00)
[2016-09-22 12:40] LABS: MAGNESIUM 1.3 MG/DL (1.5-2.5); POTASSIUM 4.1 MEQ/L (3.5-5.1)
--- NOTE | 2016-09-22 13:18 | HHI.PR ---
Subjective Subjective Notes Tolerating diet Drain site uncomfortable/painful Objective Vitals/I&O Vital Signs Date Time Temp Pulse Resp B/P Pulse Ox O2 Delivery O2 Flow Rate FiO2 09/22/16 10:00 82 09/22/16 08:00 99.6 17 102/55 100 09/18/16 16:45 21 Labs Laboratory Tests Test 09/22/16 09/22/16 04:15 11:20 White Blood Count 10.2 Red Blood Count 3.15 Hemoglobin 9.1 Hematocrit 27.5 Mean Corpuscular Volume 87.3 Mean Corpuscular Hemoglobin 29.0 Mean Corpuscular Hemoglobin 33.2 Concent Red Cell Distribution Width 16.4 Platelet Count 338 Mean Platelet Volume 8.1 Activated Partial 47.2 Thromboplast Time Sodium Level 139 Potassium Level 3.5 4.1 Chloride Level 106 Carbon Dioxide Level 23.4 Anion Gap 10 Blood Urea Nitrogen 3 Creatinine 1.02 Estimat Glomerular Filtration 55 Rate Random Glucose 163 Calcium Level 7.5 Protein Corrected Calcium 8.5 Magnesium Level 1.3 1.3 Total Protein 5.4 Albumin 1.8 Radiology Last Impressions Abscess Drainage CT 09/15/16 0000 Signed Impressions: Service Date/Time: Thursday, September 15, 2016 12:50 - CONCLUSION: Uncomplicated CT guided drainage, as above. Ady Jasmine MD Abdomen/Pelvis CT 09/14/16 1802 Signed Impressions: Service Date/Time: Wednesday, September 14, 2016 22:22 - CONCLUSION: 1. Perforation along the proximal duodenum with fluid collection of contrast and air measuring 9.1 x 2.5 cm. 2. Calcified leiomyoma. 3. Mild distention of the urinary bladder. Dr. Villalba notified of these findings. Will Pink MD Abdomen: Non-distended, Non-tender A/P Assessment and Plan Assessment and Plan 60-year-old female with complicated medical history who has a contained chronic perforated duodenal ulcer successfully drained by IR -Tolerating soft diet -Continue to monitor WBC/fevers -Continue antibiotics: Diflucan/Rocephin/Flagyl -Hepatin gtt for DVTs -PT -OOB -Can remove drain tomorrow (IR) if output remains low Elliott Cisneros MD Sep 22, 2016 13:18
[2016-09-22] MEDS ORDERED: WARFARIN SOD 10 MG TAB PO ONE (14:45)
[2016-09-22] MEDS: FLUCONAZOLE 400 MG PREMIX BAG 200 ML IV SCH (16:26)
[2016-09-22] MEDS: oxyCODONE HCL ORAL CONC 20 MG/ML SYRINGE PO PRN (16:32)
[2016-09-22] MEDS: cefTRIAXone INJ 1,000 MG in SODIUM CHLORIDE 0.9% INJ 100 ML IV SCH (20:28)
[2016-09-22] MEDS: ALPRAZolam 1 MG TAB PO PRN (20:28)
[2016-09-23] VITALS (13 sets, daily range): BP systolic 103–129; BP diastolic 52–64; PULSE 80–95; RESP 16–21; TEMP 99.2–100.3; O2SAT 91–100
[2016-09-23] MEDS: metroNIDAZOLE 500 MG INJ 100 ML IV SCH ×3 (00:08→15:18)
[2016-09-23] MEDS: PANTOPRAZOLE SODIUM 40 MG VIAL IV PUSH SCH ×2 (02:24→13:52)
[2016-09-23 05:26] LABS: MEAN CELL VOLUME 96.7 FL (80.0-100.0); MEAN CORPUSCULAR HEMOGLOBIN 32.2 PG (27.0-34.0); MEAN CORPUSCULAR HGB CONC 33.3 % (32.0-36.0); PLATELET COUNT 339 TH/MM3 (150-450); RED BLOOD COUNT 2.69 MIL/MM3 (4.00-5.30); RED CELL DISTRIBUTION WIDTH 16.2 % (11.6-17.2); REVIEW FLAG FINAL; WHITE BLOOD COUNT 8.6 TH/MM3 (4.0-11.0)
[2016-09-23 05:34] LABS: APTT (PATIENT) 53.8 SEC (24.3-30.1); INTERNATIONAL NORMALIZED RATIO 1.7 RATIO; PROTHROMBIN TIME - PATIENT 18.7 SEC (9.8-11.6)
[2016-09-23 05:38] LABS: BICARBONATE 24.9 MEQ/L (21.0-32.0); POTASSIUM 3.9 MEQ/L (3.5-5.1)
[2016-09-23] MEDS: INSULIN ASPART SUPPLEMENTAL SCALE SQ SCH ×4 (06:00→20:36)
[2016-09-23] MEDS: POLYETHYLENE GLYCOL 17 GM PKG PO SCH ×2 (08:24→20:36)
[2016-09-23] MEDS: SODIUM CHLORIDE 0.9% FLUSH 10 ML FLUSH IV FLUSH SCH ×2 (08:24→20:51)
[2016-09-23] MEDS: FLUoxetine HCL 20 MG CAP PO SCH (08:24)
[2016-09-23] MEDS: MORPHINE SULFATE 4 MG/ML INJ IV PRN ×3 (08:24→18:54)
[2016-09-23] MEDS: ALPRAZolam 1 MG TAB PO PRN (08:24)
[2016-09-23] MEDS: DEXT 5%-NACL 0.45% 1000 ML INJ 1,000 ML IV SCH ×2 (08:26→16:52)
[2016-09-23] MEDS: SODIUM CHLORIDE 0.9% 10 ML VIAL IRRIGATION SCH ×2 (08:26→20:51)
[2016-09-23] MEDS: HEPARIN-D5W INJ 250 ML IV SCH (08:31)
--- NOTE | 2016-09-23 09:00 | HHI.FPPN ---
Subjective Remarks Patient see and examined this morning. Patient states that she is feeling better. She states that she barely has any abdominal pain at this time. Recently transitioned to regular diet, tolerating well. Notes that she has had a bowel movement yesterday evening, it was dark and formed with no red streaks. Patient believes that the swelling in her arms and legs are improving. No pain in arms or legs. No other complaints of nausea, vomiting, fever, chills, chest pain, shortness of breath, abdominal pain, change in bowel habits, change in urinary habits (on Khan). Objective Vitals Vital Signs Date Time Temp Pulse Resp B/P Pulse Ox O2 Delivery O2 Flow Rate FiO2 09/23/16 08:29 18 09/23/16 06:00 85 09/23/16 04:00 80 09/23/16 04:00 99.6 81 16 115/58 97 09/23/16 02:00 82 09/23/16 00:00 84 09/23/16 00:00 99.3 83 21 103/58 93 09/22/16 22:00 83 09/22/16 20:00 99.4 76 14 131/61 97 09/22/16 20:00 78 09/22/16 18:00 94 09/22/16 16:00 99.8 82 17 113/66 95 09/22/16 16:00 82 09/22/16 14:00 85 09/22/16 12:00 83 09/22/16 12:00 99.9 83 20 109/52 96 09/22/16 10:00 82 I/O 09/22/16 09/22/16 09/22/16 09/23/16 09/23/16 09/23/16 07:00 15:00 23:00 07:00 15:00 23:00 Intake Total 954 ml 2379 ml 1392 ml 996 ml Output Total 402 ml 960 ml 503 ml 1150 ml Balance 552 ml 1419 ml 889 ml -154 ml Intake Oral 240 ml 960 ml 620 ml 240 ml IV Total 714 ml 1169 ml 772 ml 756 ml Albumin 250 ml Output Urine Total 400 ml 950 ml 500 ml 1150 ml Drainage Total 2 ml 10 ml 3 ml 0 ml # Bowel Movements 1 1 1 1 Result Diagram: 7/31/17 0440 7/31/17 0440 Objective Remarks GENERAL: This is an elderly female lying comfortably in bed, no acute distress. SKIN: . Cool and dry. HEAD: Atraumatic. Normocephalic. EYES: Pupils equal round and reactive. Extraocular motions intact. No scleral icterus. No injection or drainage. NECK: Trachea midline. No JVD or lymphadenopathy. Supple, nontender. CARDIOVASCULAR: Regular rate and rhythm RESPIRATORY: Clear to auscultation. Breath sounds equal bilaterally. No wheezes , rales, or rhonchi. GASTROINTESTINAL: Abdomen soft, mildly tender to palpation in right upper quadrant, improving. No guarding. Non-distended. No rebound. No masses appreciated. BS+. Drain in right upper abdomen with minimal green drainage, no leaking, clean and dry. MUSCULOSKELETAL: Edema in upper and lower extremities, trace in upper extremities, 1-2+ in lower extremities, improving. Mildly tender B/L. No erythema. No unilateral asymmetry. PT/DP pulses 2+ B/L NEUROLOGICAL: Awake and alert. Motor and sensory grossly within normal limits. Normal speech. Medications and IVs Current Medications Medications (Trade) Dose Ordered Sig/Ani Route Start Time Stop Time Status Last Admin (NS Flush) 2 ml UNSCH PRN IV FLUSH 09/14/16 12:30 09/19/16 14:35 (NS Flush) 2 ml BID IV FLUSH 09/14/16 21:00 09/23/16 08:24 (Zofran Inj) 4 mg Q6H PRN IV 09/14/16 12:45 09/19/16 14:35 (Xanax) 1 mg Q8H PRN PO 09/14/16 12:45 09/23/16 08:24 (PROzac) 20 mg DAILY PO 09/15/16 09:00 09/23/16 08:24 (D50w (Vial) Inj) 50 ml UNSCH PRN IV 09/14/16 12:45 Glucagon 1 mg 1 mg UNSCH PRN OTHER 09/14/16 12:45 Metronidazole 100 ml @ 100 mls/hr Q8H IV 09/14/16 16:00 09/23/16 08:25 (Rocephin Inj/NS Inj) 100 ml @ 200 mls/hr Q24H IV 09/14/16 20:00 09/22/16 20:28 (Morphine Inj) 4 mg Q3H PRN IV 09/14/16 22:30 09/23/16 08:24 (Narcan Inj) 0.4 mg UNSCH PRN IV 09/14/16 22:30 Sodium Chloride 10 ml 10 ml BID IRRIGATION 09/15/16 21:00 09/23/16 08:26 Fluconazole/ Sodium Chloride 200 ml @ 100 mls/hr Q24H IV 09/15/16 17:00 09/22/16 16:26 Dextrose/Sodium Chloride 1,000 ml @ 100 mls/hr Q10H IV 09/16/16 12:15 09/23/16 08:26 Potassium Chloride 100 ml @ 50 mls/hr Q2H PRN IV 09/16/16 12:15 (KCl 20 Meq Premix Inj) 100 ml @ 50 mls/hr Q2H PRN IV 09/16/16 12:15 09/20/16 17:11 Potassium Bicarb/ Potassium Chloride 50 meq 50 meq UNSCH PRN PO 09/16/16 12:15 Potassium Chloride 100 ml @ 25 mls/hr UNSCH PRN IV 09/16/16 12:15 09/22/16 05:24 Potassium Chloride 100 ml @ 50 mls/hr Q2H PRN IV 09/16/16 12:15 09/19/16 10:53 (Magnesium Sulfate Inj/NS Inj) 100 ml @ 50 mls/hr UNSCH PRN IV 09/16/16 12:15 Magnesium Oxide 800 mg 800 mg UNSCH PRN PO 09/16/16 12:15 09/22/16 05:24 (Magnesium Sulfate Inj/NS Inj) 100 ml @ 50 mls/hr UNSCH PRN IV 09/16/16 12:15 09/16/16 22:38 Potassium Phosphate 2000 mg 2,000 mg Q4H PRN PO 09/16/16 12:15 (Sodium Phosphate Inj/NS 250 ml Inj) 250 ml @ 42 mls/hr UNSCH PRN IV 09/16/16 12:15 Potassium Phosphate 2000 mg 2,000 mg UNSCH PRN PO/TUBE 09/16/16 12:15 (Potassium Phosphate Inj/NS 250 ml Inj) 260 ml @ 42 mls/hr UNSCH PRN IV 09/16/16 12:15 09/16/16 22:39 Pantoprazole Sodium 40 mg 40 mg Q12H IV PUSH 09/18/16 14:00 09/23/16 02:24 (Heparin-D5W Inj) 250 ml @ 0 mls/hr TITRATE IV 09/18/16 19:45 09/23/16 08:31 (Melatonin) 5 mg HS PRN PO 09/20/16 21:00 (Miralax) 17 gm BID PO 09/20/16 21:00 09/20/16 20:14 (Roxicodone Intensol Liq) 5 mg Q3H PRN PO 09/21/16 12:00 09/22/16 16:32 (Coumadin) 7.5 mg DAILY@16 PO 09/23/16 16:00 A/P Assessment and Plan This is a 60-year-old female with history of ulcerative colitis and ulcers, presents with severe anemia found to have perforated ulcer and abscess formation. Gastroenterology and colorectal surgery consulted. IR drainage completed 09/15, uncomplicated. Patient currently on a heparin drip for upper and lower extremity DVTs. Discharge Planning Timeframe unclear. Discharge pending patient being able to tolerate a normal diet and abscess drain removal and further recs from hematology regarding upper and lower extremity DVTs. Problem List: (1) Perforated duodenal ulcer Status: Acute Plan: CT scan 09/14 demonstrates a perforation of the duodenum with an abnormal fluid collection with contrast anterior to the mesenteric vasculature measuring 9.12.5 cm with adjacent stranding in the mesentery. There is no free perforation into the abdominal cavity. H&H has been stable, no additional bleeding noted. Patient has been having regular bowel movements, nonbloody General surgery consulted, Dr. Cisneros following, appreciate recommendations -Diet advanced to soft, pt tolerated liquid diet well. GI consulted, appreciate recommendations and interventions -Continue MiraLAX -Continue Protonix -Currently signed off Colorectal surgery also consulted, appreciate recommendations Continue antibiotics: Fluconazole 400 mg IV daily (09/15- ) Rocephin 1 g IV daily (09/14- ) Metronidazole 500mg IV Q8hrs (09/14- ) Pain control: Roxycodone, IV morphine for breakthrough (2) Abscess Status: Acute Plan: CT scan 09/14 shows 9.12.5 cm fluid collection anterior to the mesenteric vasculature with adjacent stranding in the mesentery. IR drainage performed 09/15 without complication Continue to monitor drain output as patient's diet progresses (3) GI bleed Status: Acute Plan: See plan for perforated lateral ulcer above Status post 4 units packed red blood cells Continue IV antibiotics per GI: Flagyl 500 IV every 8 hours, Rocephin 1 g IV every 24 hours Positive fungal growth in cultures Fluconazole 400 q24 Continue to monitor H&H Transfuse as needed (4) DVT (deep venous thrombosis) Status: Acute Plan: Patient found to have numerous DVTs of the upper and lower extremities. Hematology consulted, appreciate recommendations: -No absolute contraindication to anticoagulation -Patient currently on heparin drip -Continue to titrate per protocol, monitor PTT -Heparin to be stopped if there are any signs of bleeding - Will probably be converted to Coumadin in several days per Hematology Imaging: Lower extremity ultrasound 09/18: Bilateral lower extremity DVTs with nonocclusive thrombus within the right mid superficial femoral vein and right greater saphenous vein as well as left popliteal vein and occlusive DVT within the right posterior tibial and left peroneal veins. Upper extremity ultrasound 09/18: Extensive DVTs and superficial thrombus is of the left upper extremity. (5) Hypoalbuminemia Status: Acute Plan: Albumin low at 1.5 on 09/20. 1.8 on 09/22 -Likely to improve as pts diet progresses -Will give Albumin 5% 12.5 gm IV x1 -Continue to monitor -Recently resumed soft foods, improved protein intake -Consider additional albumin as needed (6) Depression with anxiety Status: Acute Plan: States she is not depressed today 09/22 Continue fluoxetine 20 mg po daily Xanax 1 mg Q8hrs prn anxiety (7) Diabetes Status: Acute Plan: History of chronic diabetes. On insulin at home. -Low dose sliding scale while inpatient -Continue long acting insulin as pts diet is progressed (8) FEN Status: Acute Plan: Fluids: NS @ 150mls/hr Electrolytes: ICU electrolyte protocol, continue to monitor Nutrition: Soft diet DVT ppx: Heparin drip GI ppx: Protonix 40 mg Q12hrs Problem Qualifiers (1) GI bleed: Qualified Code: K29.91 - Gastrointestinal hemorrhage associated with gastroduodenitis (2) Diabetes: Qualified Code: E11.9 - Type 2 diabetes mellitus without complication, with long-term current use of insulin Elliott Willingham MD R1 Sep 23, 2016 09:00
[2016-09-23] MEDS ORDERED: DIATRIZOATE MEGLUM/DIATRIZOATE SOD 9 ML CUP PO ONE (11:45)
--- NOTE | 2016-09-23 13:36 | PD.ONC.PN ---
Subjective Subjective Remarks Tmax 100.3 this AM. Patient resting in bed. Denies any bleeding. Tolerating heparin and coumadin. Objective Data Date Time Temp Pulse Resp B/P Pulse Ox O2 Delivery O2 Flow Rate FiO2 09/23/16 12:00 99.8 90 17 109/52 100 09/23/16 12:00 90 09/23/16 10:00 80 09/23/16 08:29 18 09/23/16 08:00 95 09/23/16 08:00 100.3 95 20 129/60 91 09/23/16 06:00 85 09/23/16 04:00 80 09/23/16 04:00 99.6 81 16 115/58 97 09/23/16 02:00 82 09/23/16 00:00 84 09/23/16 00:00 99.3 83 21 103/58 93 09/22/16 22:00 83 09/22/16 20:00 99.4 76 14 131/61 97 09/22/16 20:00 78 09/22/16 18:00 94 09/22/16 16:00 99.8 82 17 113/66 95 09/22/16 16:00 82 09/22/16 14:00 85 09/23/16 09/23/16 09/23/16 07:00 15:00 23:00 Intake Total 996 ml Output Total 1150 ml Balance -154 ml Result Diagram: 09/23/160 09/23/160 Laboratory Results Laboratory Tests Test 09/23/16 04:40 White Blood Count 8.6 TH/MM3 Red Blood Count 2.69 MIL/MM3 Hemoglobin 8.7 GM/DL Hematocrit 26.0 % Mean Corpuscular Volume 96.7 FL Mean Corpuscular Hemoglobin 32.2 PG Mean Corpuscular Hemoglobin 33.3 % Concent Red Cell Distribution Width 16.2 % Platelet Count 339 TH/MM3 Mean Platelet Volume 8.4 FL Prothrombin Time 18.7 SEC Prothromb Time International 1.7 RATIO Ratio Activated Partial 53.8 SEC Thromboplast Time Sodium Level 140 MEQ/L Potassium Level 3.9 MEQ/L Chloride Level 106 MEQ/L Carbon Dioxide Level 24.9 MEQ/L Anion Gap 9 MEQ/L Blood Urea Nitrogen 2 MG/DL Creatinine 0.98 MG/DL Estimat Glomerular Filtration 58 ML/MIN Rate Random Glucose 149 MG/DL Calcium Level 7.9 MG/DL Administered Medications Medications (Trade) Dose Ordered Sig/Ani Route PRN Reason Start Time Stop Time Status Last Admin Dose Admin Sodium Chloride (NS Flush) 2 ml UNSCH PRN IV FLUSH FLUSH AFTER USING IV ACCESS 09/14/16 12:30 09/19/16 14:35 Sodium Chloride (NS Flush) 2 ml BID IV FLUSH 09/14/16 21:00 09/23/16 08:24 Ondansetron HCl (Zofran Inj) 4 mg Q6H PRN IV NAUSEA 09/14/16 12:45 09/19/16 14:35 Alprazolam (Xanax) 1 mg Q8H PRN PO ANXIETY 09/14/16 12:45 09/23/16 08:24 Fluoxetine HCl 20 mg 20 mg DAILY PO 09/15/16 09:00 09/23/16 08:24 Metronidazole 100 ml @ 100 mls/hr Q8H IV 09/14/16 16:00 09/23/16 08:25 Ceftriaxone Sodium/Sodium Chloride (Rocephin Inj/NS Inj) 100 ml @ 200 mls/hr Q24H IV 09/14/16 20:00 09/22/16 20:28 Morphine Sulfate (Morphine Inj) 4 mg Q3H PRN IV BREAKTHROUGH PAIN 09/14/16 22:30 09/23/16 08:24 Sodium Chloride 10 ml 10 ml BID IRRIGATION 09/15/16 21:00 09/23/16 08:26 Fluconazole/ Sodium Chloride 200 ml @ 100 mls/hr Q24H IV 09/15/16 17:00 09/22/16 16:26 Dextrose/Sodium Chloride 1,000 ml @ 100 mls/hr Q10H IV 09/16/16 12:15 09/23/16 08:26 Potassium Chloride 100 ml @ 50 mls/hr Q2H PRN IV For Potassium 2.8 - 3.2 mEq/L 09/16/16 12:15 09/20/16 17:11 Potassium Chloride 100 ml @ 25 mls/hr UNSCH PRN IV For Potassium 3.3 - 3.5 mEq/L 09/16/16 12:15 09/22/16 05:24 Potassium Chloride (KCl 20 Meq Premix Inj) 100 ml @ 50 mls/hr Q2H PRN IV For Potassium 3.3 - 3.5 mEq/L 09/16/16 12:15 09/19/16 10:53 Magnesium Oxide 800 mg 800 mg UNSCH PRN PO For Magnesium 1.2 - 1.6 mg/dL 09/16/16 12:15 09/22/16 05:24 Magnesium Sulfate 2 gm/Sodium Chloride 100 ml @ 50 mls/hr UNSCH PRN IV For Magnesium 1.2 - 1.6 mg/dL 09/16/16 12:15 09/16/16 22:38 Potassium Phosphate/Sodium Chloride (Potassium Phosphate Inj/NS 250 ml Inj) 260 ml @ 42 mls/hr UNSCH PRN IV SEE LABEL COMMENTS 09/16/16 12:15 09/16/16 22:39 Pantoprazole Sodium 40 mg 40 mg Q12H IV PUSH 09/18/16 14:00 09/23/16 02:24 Heparin Sodium/ Dextrose (Heparin-D5W Inj) 250 ml @ 0 mls/hr TITRATE IV 09/18/16 19:45 09/23/16 08:31 Polyethylene Glycol (Miralax) 17 gm BID PO 09/20/16 21:00 09/20/16 20:14 Oxycodone HCl (Roxicodone Intensol Liq) 5 mg Q3H PRN PO PAIN SCALE 5 TO 10 09/21/16 12:00 09/22/16 16:32 Objective Remarks GENERAL: Middle aged female lying in bed in [facility]. SKIN: Warm and dry. HEAD: Normocephalic. EYES: No injection or drainage. NECK: Supple, trachea midline. CARDIOVASCULAR: Regular rate and rhythm RESPIRATORY: Breath sounds equal bilaterally. No accessory muscle use. GASTROINTESTINAL: Abdomen soft, mildly tender, non-distended. EXTREMITIES: No cyanosis MUSCULOSKELETAL: Adequate muscle tone. NEUROLOGICAL: awake and alert, normal speech. Assessment/Plan Assessment 60y/o female with bilateral upper extremity and lower extremity deep vein thromboses + GI bleed from a duodenal ulcer. --presented to the emergency room with two episodes of dark stool on 2016. --CT ab/pelvis showed perforation of the proximal duodenum with fluid collection and contrast measuring 9.1 x 2.5 cm. Plan 1. continue heparin bridge to coumadin 2. monitor CBC, INR Talita Issa Sep 23, 2016 13:36
--- NOTE | 2016-09-23 15:55 | HHI.PR ---
Subjective Subjective Notes Resting in bed Tolerating diet No issues Started oral contrast Objective Vitals/I&O Vital Signs Date Time Temp Pulse Resp B/P Pulse Ox O2 Delivery O2 Flow Rate FiO2 09/23/16 14:35 18 09/23/16 14:00 89 09/23/16 12:00 99.8 109/52 100 Labs Laboratory Tests Test 09/23/16 04:40 White Blood Count 8.6 Red Blood Count 2.69 Hemoglobin 8.7 Hematocrit 26.0 Mean Corpuscular Volume 96.7 Mean Corpuscular Hemoglobin 32.2 Mean Corpuscular Hemoglobin 33.3 Concent Red Cell Distribution Width 16.2 Platelet Count 339 Mean Platelet Volume 8.4 Prothrombin Time 18.7 Prothromb Time International 1.7 Ratio Activated Partial 53.8 Thromboplast Time Sodium Level 140 Potassium Level 3.9 Chloride Level 106 Carbon Dioxide Level 24.9 Anion Gap 9 Blood Urea Nitrogen 2 Creatinine 0.98 Estimat Glomerular Filtration 58 Rate Random Glucose 149 Calcium Level 7.9 Radiology Last Impressions Abscess Drainage CT 09/15/16 0000 Signed Impressions: Service Date/Time: Thursday, September 15, 2016 12:50 - CONCLUSION: Uncomplicated CT guided drainage, as above. dAy Jasmine MD Abdomen/Pelvis CT 09/14/16 1802 Signed Impressions: Service Date/Time: Wednesday, September 14, 2016 22:22 - CONCLUSION: 1. Perforation along the proximal duodenum with fluid collection of contrast and air measuring 9.1 x 2.5 cm. 2. Calcified leiomyoma. 3. Mild distention of the urinary bladder. Dr. Villalba notified of these findings. Will Pink MD Cardiovascular: Regular Lungs: Clear Abdomen: Non-distended, Non-tender, Other (drain in place with minimal thin drainage ) Extremities: No edema A/P Assessment and Plan 60-year-old female with complicated medical history who has a contained chronic perforated duodenal ulcer successfully drained by IR -CT abd/pelvis today to eval drain -Tolerating regular diet -Continue to monitor WBC/fevers -Continue antibiotics: Diflucan/Rocephin/Flagyl -DVT---transitioning to Coumadin -PT -OOB Attending Note - Dr. Cisneros Fluid collection resolved; drain to be removed Will sign off soon The exam, history, and the medical decision-making described in the above note were completed with the assistance of the mid-level provider. I reviewed and agree with the findings presented. I attest that I had a [id number] encounter with the patient on the same day, and personally performed and documented my assessment and findings in the medical record. Siena Brooks Sep 23, 2016 15:55 Elliott Cisneros MD Sep 25, 2016 17:27
[2016-09-23] MEDS ORDERED: WARFARIN SOD 7.5 MG TAB PO SCH (16:00)
--- NOTE | 2016-09-23 16:36 | RADRPT ---
EXAM DATE/TIME: 09/23/2016 15:49 [place] COMPARISON: CT ABDOMEN & PELVIS W/O CONTRAST, September 14, 2016, 22:22. INDICATIONS : Evaluate drain placed 09/15/16 upper abdomen. ORAL CONTRAST: Prescribed oral contrast ingested. RADIATION DOSE: 15.86 CTDIvol (mGy) MEDICAL HISTORY : Cardiovascular disease. Ulcers. colilitis SURGICAL HISTORY : Tubal ligation. large intestine removed, dilitation of esophagus ENCOUNTER: Subsequent ACUITY: 1 week PAIN SCALE: 5/10 LOCATION: upper quadrant TECHNIQUE: Volumetric scanning of the abdomen and pelvis was performed. Using automated exposure control and ad justment of the mA and/or kV according to patient size, radiation dose was kept as low as reasonably achievable to obtain optimal diagnostic quality images. DICOM format image data is available electro nically for review and comparison. FINDINGS: CT Abdomen: The liver, spleen, pancreas, kidneys, adrenals are unremarkable. There is no evidence for any appreciable pathological adenopathy, free fluid, or bowel obstruction. Small bilateral pleural effusions are seen. Mild right lung base atelectasis and/or infiltrate is seen. There is slight left lung base consolidation. There may be a small sliding hiatal hernia. Chronic vascular calcifications are present involving the aorta, iliac arteries without any significant stenosis or aneurysmal dilata tions for technique. There is slight anasarca. There is a drain in the right upper quadrant in the re gion of the falciform ligament with a couple of gas bubbles adjacent to it and no evidence for fluid collections or abscess formation. There is minimal haziness to the mesenteric fat planes of the upper abdomen. CT pelvis: There is no evidence for mass, abscess formation, or any significant adenopathy within the pelvis. There may be chronic spondylolysis with some degree of anterolisthesis lower lumbar spine no t adequately characterized. Calcified uterine fibroid is again seen. CONCLUSION: 1. Basically complete resolution of previously seen abscess with a few gas bubbles and mild haziness remaining the upper abdominal mesentery. 2. Slight anasarca and bilateral pleural effusions, left lung base consolidation. Whit Bullard MD on September 23, 2016 at 16:28 Board Certified Radiologist. This report was verified electronically.
[2016-09-23] MEDS: FLUCONAZOLE 400 MG PREMIX BAG 200 ML IV SCH (16:51)
[2016-09-23 19:50] LABS: PHOS SERINE AB IGA LESS THAN 20 U/mL (()); PHOS SERINE AB IGG LESS THAN 10 U/mL (()); PHOS SERINE AB IGM LESS THAN 25 U/mL (())
[2016-09-23] MEDS: oxyCODONE HCL ORAL CONC 20 MG/ML SYRINGE PO PRN (20:51)
[2016-09-23] MEDS: PIPERACIL-TAZO 3.375 GM PREMIX 50 ML IV SCH (21:16)
[2016-09-24] VITALS (10 sets, daily range): BP systolic 100–131; BP diastolic 51–70; PULSE 18–95; RESP 15–21; TEMP 98.5–101.3; O2SAT 93–98
[2016-09-24] MEDS: PANTOPRAZOLE SODIUM 40 MG VIAL IV PUSH SCH ×2 (01:02→13:12)
[2016-09-24] MEDS: metroNIDAZOLE 500 MG INJ 100 ML IV SCH ×2 (01:02→08:21)
[2016-09-24] MEDS: MORPHINE SULFATE 4 MG/ML INJ IV PRN ×4 (01:04→11:38)
[2016-09-24] MEDS: oxyCODONE HCL ORAL CONC 20 MG/ML SYRINGE PO PRN (01:56)
[2016-09-24] MEDS: PIPERACIL-TAZO 3.375 GM PREMIX 50 ML IV SCH ×4 (01:56→21:44)
[2016-09-24] MEDS: HEPARIN-D5W INJ 250 ML IV SCH (04:49)
[2016-09-24 05:42] LABS: INTERNATIONAL NORMALIZED RATIO 3.4 RATIO; PROTHROMBIN TIME - PATIENT 39.3 SEC (9.8-11.6)
[2016-09-24 05:43] LABS: AUTOMATED NEUTROPHIL # 5.6 TH/MM3 (1.8-7.7); BASOPHIL # 0.1 TH/MM3 (0-0.2); EOSINOPHIL # 0.1 TH/MM3 (0-0.4); EOSINOPHIL % 0.8 % (0.0-4.0); HEMATOCRIT 26.5 % (35.0-46.0); LYMPH % 30.9 % (9.0-44.0); MEAN CELL VOLUME 93.6 FL (80.0-100.0); MEAN CORPUSCULAR HEMOGLOBIN 31.2 PG (27.0-34.0); MEAN CORPUSCULAR HGB CONC 33.3 % (32.0-36.0); MONO % 8.8 % (0.0-8.0); NEUT % 58.5 % (16.0-70.0); PLATELET COUNT 337 TH/MM3 (150-450); RED BLOOD COUNT 2.84 MIL/MM3 (4.00-5.30); RED CELL DISTRIBUTION WIDTH 16.1 % (11.6-17.2); WHITE BLOOD COUNT 9.6 TH/MM3 (4.0-11.0)
[2016-09-24 05:47] LABS: BICARBONATE 26.4 MEQ/L (21.0-32.0); POTASSIUM 3.7 MEQ/L (3.5-5.1)
[2016-09-24 05:54] LABS: APTT (PATIENT) 58.5 SEC (24.3-30.1)
[2016-09-24 05:56] LABS: HEMO FLAGS AUTO DIFF
[2016-09-24 06:52] LABS: PLATELET ESTIMATE SMEAR NORMAL (NORMAL); PLATELET MORPHOLOGY NORMAL (NORMAL); SCAN/DIFF AUTO DIFF CONFIRMED
[2016-09-24] MEDS: INSULIN ASPART SUPPLEMENTAL SCALE SQ SCH ×3 (07:00→21:00)
[2016-09-24] MEDS: POLYETHYLENE GLYCOL 17 GM PKG PO SCH ×2 (08:21→21:45)
[2016-09-24] MEDS: SODIUM CHLORIDE 0.9% 10 ML VIAL IRRIGATION SCH ×2 (08:21→21:00)
[2016-09-24] MEDS: SODIUM CHLORIDE 0.9% FLUSH 10 ML FLUSH IV FLUSH SCH ×2 (08:21→21:45)
[2016-09-24] MEDS: FLUoxetine HCL 20 MG CAP PO SCH (08:22)
[2016-09-24] MEDS: ALPRAZolam 1 MG TAB PO PRN (08:22)
--- NOTE | 2016-09-24 11:17 | PD.ONC.PN ---
Subjective Subjective Remarks Tmax 100.2 overnight. Denies bleeding. Resting comfortably with no complaints. Objective Data Date Time Temp Pulse Resp B/P Pulse Ox O2 Delivery O2 Flow Rate FiO2 09/24/16 08:27 16 09/24/16 06:00 84 09/24/16 04:00 100.2 81 16 115/56 93 09/24/16 04:00 81 09/24/16 02:00 80 09/24/16 00:00 98.5 83 19 100/56 95 09/24/16 00:00 83 09/23/16 22:00 84 09/23/16 20:00 99.4 80 18 103/55 98 09/23/16 20:00 80 09/23/16 19:05 97 09/23/16 18:00 84 09/23/16 16:00 99.2 85 18 121/64 96 09/23/16 16:00 85 09/23/16 14:00 89 09/23/16 12:00 99.8 90 17 109/52 100 09/23/16 12:00 90 09/24/16 09/24/16 09/24/16 06:59 14:59 22:59 Intake Total 829 ml Output Total 925 ml Balance -96 ml Result Diagram: 09/24/16 0425 09/24/16 0425 Laboratory Results Laboratory Tests Test 09/24/16 04:25 White Blood Count 9.6 TH/MM3 Red Blood Count 2.84 MIL/MM3 Hemoglobin 8.8 GM/DL Hematocrit 26.5 % Mean Corpuscular Volume 93.6 FL Mean Corpuscular Hemoglobin 31.2 PG Mean Corpuscular Hemoglobin 33.3 % Concent Red Cell Distribution Width 16.1 % Platelet Count 337 TH/MM3 Mean Platelet Volume 8.5 FL Neutrophils (%) (Auto) 58.5 % Lymphocytes (%) (Auto) 30.9 % Monocytes (%) (Auto) 8.8 % Eosinophils (%) (Auto) 0.8 % Basophils (%) (Auto) 1.0 % Neutrophils # (Auto) 5.6 TH/MM3 Lymphocytes # (Auto) 3.0 TH/MM3 Monocytes # (Auto) 0.9 TH/MM3 Eosinophils # (Auto) 0.1 TH/MM3 Basophils # (Auto) 0.1 TH/MM3 CBC Comment AUTO DIFF Differential Comment AUTO DIFF CONFIRMED Platelet Estimate NORMAL Platelet Morphology Comment NORMAL Prothrombin Time 39.3 SEC Prothromb Time International 3.4 RATIO Ratio Activated Partial 58.5 SEC Thromboplast Time Sodium Level 139 MEQ/L Potassium Level 3.7 MEQ/L Chloride Level 104 MEQ/L Carbon Dioxide Level 26.4 MEQ/L Anion Gap 9 MEQ/L Blood Urea Nitrogen 4 MG/DL Creatinine 0.94 MG/DL Estimat Glomerular Filtration 61 ML/MIN Rate Random Glucose 114 MG/DL Calcium Level 7.9 MG/DL Administered Medications Medications (Trade) Dose Ordered Sig/Ani Route PRN Reason Start Time Stop Time Status Last Admin Dose Admin Sodium Chloride (NS Flush) 2 ml UNSCH PRN IV FLUSH FLUSH AFTER USING IV ACCESS 09/14/16 12:30 09/19/16 14:35 Sodium Chloride (NS Flush) 2 ml BID IV FLUSH 09/14/16 21:00 09/24/16 08:21 Ondansetron HCl (Zofran Inj) 4 mg Q6H PRN IV NAUSEA 09/14/16 12:45 09/19/16 14:35 Alprazolam (Xanax) 1 mg Q8H PRN PO ANXIETY 09/14/16 12:45 09/24/16 08:22 Fluoxetine HCl 20 mg 20 mg DAILY PO 09/15/16 09:00 09/24/16 08:22 Metronidazole (Flagyl 500 Mg Inj) 100 ml @ 100 mls/hr Q8H IV 09/14/16 16:00 09/24/16 08:21 Morphine Sulfate (Morphine Inj) 4 mg Q3H PRN IV BREAKTHROUGH PAIN 09/14/16 22:30 09/24/16 08:22 Sodium Chloride 10 ml 10 ml BID IRRIGATION 09/15/16 21:00 09/24/16 08:21 Fluconazole/ Sodium Chloride 200 ml @ 100 mls/hr Q24H IV 09/15/16 17:00 09/23/16 16:51 Dextrose/Sodium Chloride 1,000 ml @ 100 mls/hr Q10H IV 09/16/16 12:15 09/23/16 16:52 Potassium Chloride 100 ml @ 50 mls/hr Q2H PRN IV For Potassium 2.8 - 3.2 mEq/L 09/16/16 12:15 09/20/16 17:11 Potassium Chloride 100 ml @ 25 mls/hr UNSCH PRN IV For Potassium 3.3 - 3.5 mEq/L 09/16/16 12:15 09/22/16 05:24 Potassium Chloride (KCl 20 Meq Premix Inj) 100 ml @ 50 mls/hr Q2H PRN IV For Potassium 3.3 - 3.5 mEq/L 09/16/16 12:15 09/19/16 10:53 Magnesium Oxide 800 mg 800 mg UNSCH PRN PO For Magnesium 1.2 - 1.6 mg/dL 09/16/16 12:15 09/22/16 05:24 Magnesium Sulfate 2 gm/Sodium Chloride 100 ml @ 50 mls/hr UNSCH PRN IV For Magnesium 1.2 - 1.6 mg/dL 09/16/16 12:15 09/16/16 22:38 Potassium Phosphate/Sodium Chloride (Potassium Phosphate Inj/NS 250 ml Inj) 260 ml @ 42 mls/hr UNSCH PRN IV SEE LABEL COMMENTS 09/16/16 12:15 09/16/16 22:39 Pantoprazole Sodium (Protonix Inj) 40 mg Q12H IV PUSH 09/18/16 14:00 09/24/16 01:02 Polyethylene Glycol (Miralax) 17 gm BID PO 09/20/16 21:00 09/20/16 20:14 Oxycodone HCl 5 mg 5 mg Q3H PRN PO PAIN SCALE 5 TO 10 09/21/16 12:00 09/24/16 01:56 Piperacillin Sod/ Tazobactam Sod (Zosyn 3.375 Gm Premix) 50 ml @ 100 mls/hr Q6H IV 09/23/16 21:00 09/24/16 08:21 Objective Remarks GENERAL: Middle aged female upright in bed in [facility]. SKIN: Warm and dry. HEAD: Normocephalic. EYES: No injection or drainage. NECK: Supple, trachea midline. CARDIOVASCULAR: Regular rate and rhythm RESPIRATORY: Breath sounds equal bilaterally. No accessory muscle use. GASTROINTESTINAL: Abdomen soft, mildly tender, non-distended. EXTREMITIES: No cyanosis MUSCULOSKELETAL: Adequate muscle tone. NEUROLOGICAL: aox3. normal speech. Assessment/Plan Assessment 60y/o female with bilateral upper extremity and lower extremity deep vein thromboses + GI bleed from a duodenal ulcer. --presented to the emergency room with two episodes of dark stool on 2016. --CT ab/pelvis showed perforation of the proximal duodenum with fluid collection and contrast measuring 9.1 x 2.5 cm. Plan 1. INR 3.4. will stop heparin and coumadin. check INR tomorrow. Once INR less than 3.0 will resume coumadin 2. monitor CBC, no sign of bleeding. Talita Issa Sep 24, 2016 11:17
--- NOTE | 2016-09-24 12:09 | HHI.FPPN ---
Subjective Remarks Patient see and examined this morning. Patient states that she is feeling better. She states that she barely has any abdominal pain at this time. Transitioned to regular diet days ago, tolerating well. Notes that she has had a bowel movement this morning, it was leather stitcher than before, formed with no red streaks. Patient believes that the swelling in her arms and legs are improving. No pain in arms or legs. No other complaints of nausea, vomiting, fever, chills , chest pain, shortness of breath, abdominal pain, change in bowel habits, change in urinary habits (on Khan). Objective Vitals Vital Signs Date Time Temp Pulse Resp B/P Pulse Ox O2 Delivery O2 Flow Rate FiO2 09/24/16 08:27 16 09/24/16 06:00 84 09/24/16 04:00 100.2 81 16 115/56 93 09/24/16 04:00 81 09/24/16 02:00 80 09/24/16 00:00 98.5 83 19 100/56 95 09/24/16 00:00 83 09/23/16 22:00 84 09/23/16 20:00 99.4 80 18 103/55 98 09/23/16 20:00 80 09/23/16 19:05 97 09/23/16 18:00 84 09/23/16 16:00 99.2 85 18 121/64 96 09/23/16 16:00 85 09/23/16 14:00 89 09/23/16 12:00 99.8 90 17 109/52 100 09/23/16 12:00 90 I/O 09/23/16 09/23/16 09/23/16 09/24/16 09/24/16 09/24/16 06:59 14:59 22:59 06:59 14:59 22:59 Intake Total 996 ml 2017 ml 884 ml 829 ml Output Total 1150 ml 1950 ml 1100 ml 925 ml Balance -154 ml 67 ml -216 ml -96 ml Intake Oral 240 ml 960 ml 120 ml 120 ml IV Total 756 ml 1057 ml 764 ml 709 ml Output Urine Total 1150 ml 1950 ml 1100 ml 925 ml Drainage Total 0 ml 0 ml 0 ml 0 ml Bladder Scan Volume Amount 34 ml 34 ml # Bowel Movements 1 3 1 2 Result Diagram: 09/24/16 0425 09/24/16 0425 Imaging Last 48 hours Impressions Abdomen/Pelvis CT 09/23/16 0000 Signed Impressions: Service Date/Time: Friday, September 23, 2016 15:49 - CONCLUSION: 1. Basically complete resolution of previously seen abscess with a few gas bubbles and mild haziness remaining the upper abdominal mesentery. 2. Slight anasarca and bilateral pleural effusions, left lung base consolidation. Whit Bullard MD Objective Remarks GENERAL: This is an elderly female lying comfortably in bed, no acute distress. SKIN: . Cool and dry. HEAD: Atraumatic. Normocephalic. EYES: Pupils equal round and reactive. Extraocular motions intact. No scleral icterus. No injection or drainage. NECK: Trachea midline. No JVD or lymphadenopathy. Supple, nontender. CARDIOVASCULAR: Regular rate and rhythm RESPIRATORY: Clear to auscultation. Breath sounds equal bilaterally. No wheezes , rales, or rhonchi. GASTROINTESTINAL: Abdomen soft, mildly tender to palpation in right upper quadrant, improving. No guarding. Non-distended. No rebound. No masses appreciated. BS+. Drain in right upper abdomen with minimal green drainage, no leaking, clean and dry. MUSCULOSKELETAL: Edema in upper and lower extremities, trace in upper extremities, 1-2+ in lower extremities, improving. Mildly tender B/L. No erythema. No unilateral asymmetry. PT/DP pulses 2+ B/L NEUROLOGICAL: Awake and alert. Motor and sensory grossly within normal limits. Normal speech. Medications and IVs Current Medications Medications (Trade) Dose Ordered Sig/Ani Route Start Time Stop Time Status Last Admin (NS Flush) 2 ml UNSCH PRN IV FLUSH 09/14/16 12:30 09/19/16 14:35 (NS Flush) 2 ml BID IV FLUSH 09/14/16 21:00 09/24/16 08:21 (Zofran Inj) 4 mg Q6H PRN IV 09/14/16 12:45 09/19/16 14:35 (Xanax) 1 mg Q8H PRN PO 09/14/16 12:45 09/24/16 08:22 (PROzac) 20 mg DAILY PO 09/15/16 09:00 09/24/16 08:22 (D50w (Vial) Inj) 50 ml UNSCH PRN IV 09/14/16 12:45 Glucagon 1 mg 1 mg UNSCH PRN OTHER 09/14/16 12:45 (Flagyl 500 Mg Inj) 100 ml @ 100 mls/hr Q8H IV 09/14/16 16:00 09/24/16 08:21 (Morphine Inj) 4 mg Q3H PRN IV 09/14/16 22:30 09/24/16 11:38 (Narcan Inj) 0.4 mg UNSCH PRN IV 09/14/16 22:30 Sodium Chloride 10 ml 10 ml BID IRRIGATION 09/15/16 21:00 09/24/16 08:21 Fluconazole/ Sodium Chloride 200 ml @ 100 mls/hr Q24H IV 09/15/16 17:00 09/23/16 16:51 Dextrose/Sodium Chloride 1,000 ml @ 100 mls/hr Q10H IV 09/16/16 12:15 09/23/16 16:52 Potassium Chloride 100 ml @ 50 mls/hr Q2H PRN IV 09/16/16 12:15 (KCl 20 Meq Premix Inj) 100 ml @ 50 mls/hr Q2H PRN IV 09/16/16 12:15 09/20/16 17:11 Potassium Bicarb/ Potassium Chloride 50 meq 50 meq UNSCH PRN PO 09/16/16 12:15 Potassium Chloride 100 ml @ 25 mls/hr UNSCH PRN IV 09/16/16 12:15 09/22/16 05:24 Potassium Chloride 100 ml @ 50 mls/hr Q2H PRN IV 09/16/16 12:15 09/19/16 10:53 (Magnesium Sulfate Inj/NS Inj) 100 ml @ 50 mls/hr UNSCH PRN IV 09/16/16 12:15 Magnesium Oxide 800 mg 800 mg UNSCH PRN PO 09/16/16 12:15 09/22/16 05:24 (Magnesium Sulfate Inj/NS Inj) 100 ml @ 50 mls/hr UNSCH PRN IV 09/16/16 12:15 09/16/16 22:38 Potassium Phosphate 2000 mg 2,000 mg Q4H PRN PO 09/16/16 12:15 (Sodium Phosphate Inj/NS 250 ml Inj) 250 ml @ 42 mls/hr UNSCH PRN IV 09/16/16 12:15 Potassium Phosphate 2000 mg 2,000 mg UNSCH PRN PO/TUBE 09/16/16 12:15 (Potassium Phosphate Inj/NS 250 ml Inj) 260 ml @ 42 mls/hr UNSCH PRN IV 09/16/16 12:15 09/16/16 22:39 (Protonix Inj) 40 mg Q12H IV PUSH 09/18/16 14:00 09/24/16 01:02 (Melatonin) 5 mg HS PRN PO 09/20/16 21:00 (Miralax) 17 gm BID PO 09/20/16 21:00 09/20/16 20:14 Oxycodone HCl 5 mg 5 mg Q3H PRN PO 09/21/16 12:00 09/24/16 01:56 (Zosyn 3.375 Gm Premix) 50 ml @ 100 mls/hr Q6H IV 09/23/16 21:00 09/24/16 08:21 A/P Assessment and Plan This is a 60-year-old female with history of ulcerative colitis and ulcers, presents with severe anemia found to have perforated ulcer and abscess formation. Gastroenterology and colorectal surgery consulted. IR drainage completed 09/15, uncomplicated. Abscess appears resolved on CT (09/23). Patient currently bridging to Coumadin for upper and lower extremity DVTs. Discharge Planning Timeframe unclear. Discharge pending patient being able to tolerate a normal diet and abscess drain removal and further recs from hematology regarding upper and lower extremity DVTs. Problem List: (1) Perforated duodenal ulcer Status: Acute Plan: CT scan 09/14 demonstrates a perforation of the duodenum with an abnormal fluid collection with contrast anterior to the mesenteric vasculature measuring 9.12.5 cm with adjacent stranding in the mesentery. There is no free perforation into the abdominal cavity. H&H has been stable, no additional bleeding noted. Patient has been having regular bowel movements, nonbloody General surgery consulted, Dr. Cisneros following, appreciate recommendations -Diet regular. GI consulted, appreciate recommendations and interventions -Continue MiraLAX -Continue Protonix -Currently signed off Colorectal surgery also consulted, appreciate recommendations Continue antibiotics: Fluconazole 400 mg IV daily (09/15- ) Rocephin 1 g IV daily (09/14- ) Metronidazole 500mg IV Q8hrs (09/14- ) Pain control: Roxycodone, IV morphine for breakthrough (2) Abscess Status: Acute Plan: CT scan 09/14 shows 9.12.5 cm fluid collection anterior to the mesenteric vasculature with adjacent stranding in the mesentery. IR drainage performed 09/15 without complication Continue to monitor drain output as patient's diet progresses CT 09/23 "Basically complete resolution of previously seen abscess with a few gas bubbles and mild haziness remaining the upper abdominal mesentery." (3) GI bleed Status: Acute Plan: See plan for perforated lateral ulcer above Status post 4 units packed red blood cells Continue IV antibiotics per GI: Flagyl 500 IV every 8 hours, Rocephin 1 g IV every 24 hours Positive fungal growth in cultures Fluconazole 400 q24 Continue to monitor H&H Transfuse as needed (4) DVT (deep venous thrombosis) Status: Acute Plan: Patient found to have numerous DVTs of the upper and lower extremities. Hematology consulted, appreciate recommendations: -No absolute contraindication to anticoagulation -Patient currently off heparin drip - currently being converted to Coumadin per Hematology, off coumadin for the day -INR 3.4 09/24/16 - Will resume coumadin when INR <3.0 Imaging: Lower extremity ultrasound 09/18: Bilateral lower extremity DVTs with nonocclusive thrombus within the right mid superficial femoral vein and right greater saphenous vein as well as left popliteal vein and occlusive DVT within the right posterior tibial and left peroneal veins. Upper extremity ultrasound 09/18: Extensive DVTs and superficial thrombus is of the left upper extremity. (5) Pleural effusion Status: Acute Plan: Bilateral pleural effusions with left lung consolidation on CT - Possible pneumonia - ID consulted for antibiotic optimization - Pulmonary toilet (6) Hypoalbuminemia Status: Acute Plan: Albumin low at 1.5 on 09/20. 1.8 on 09/22 -Likely to improve as pts diet progresses -Will give Albumin 5% 12.5 gm IV x1 -Continue to monitor -Recently resumed soft foods, improved protein intake -Consider additional albumin as needed -Will check again tomorrow, following several days of regular diet (7) Depression with anxiety Status: Acute Plan: States she is not depressed today 09/22 Continue fluoxetine 20 mg po daily Xanax 1 mg Q8hrs prn anxiety (8) Diabetes Status: Acute Plan: History of chronic diabetes. On insulin at home. -Low dose sliding scale while inpatient -Continue long acting insulin as pts diet is progressed (9) FEN Status: Acute Plan: Fluids: NS @ 150mls/hr Electrolytes: ICU electrolyte protocol, continue to monitor Nutrition: Full diet DVT ppx: Being bridged to Coumadin GI ppx: Protonix 40 mg Q12hrs Problem Qualifiers (1) GI bleed: Qualified Code: K29.91 - Gastrointestinal hemorrhage associated with gastroduodenitis (2) Diabetes: Qualified Code: E11.9 - Type 2 diabetes mellitus without complication, with long-term current use of insulin Elliott Willingham MD R1 Sep 24, 2016 12:09
[2016-09-24] MEDS: DEXT 5%-NACL 0.45% 1000 ML INJ 1,000 ML IV SCH ×2 (13:12→14:44)
[2016-09-24 13:51] LABS: BETA2 GLYCOPROTEIN I AB IGA LESS THAN 9.0 SAU (< OR = 20)
--- NOTE | 2016-09-24 14:02 | HHI.PR ---
Subjective Subjective Notes Happy to have drain removed Had lunch No issues Objective Vitals/I&O Vital Signs Date Time Temp Pulse Resp B/P Pulse Ox O2 Delivery O2 Flow Rate FiO2 09/24/16 12:00 88 09/24/16 12:00 98.8 21 100/51 96 Labs Laboratory Tests Test 09/24/16 04:25 White Blood Count 9.6 Red Blood Count 2.84 Hemoglobin 8.8 Hematocrit 26.5 Mean Corpuscular Volume 93.6 Mean Corpuscular Hemoglobin 31.2 Mean Corpuscular Hemoglobin 33.3 Concent Red Cell Distribution Width 16.1 Platelet Count 337 Mean Platelet Volume 8.5 Neutrophils (%) (Auto) 58.5 Lymphocytes (%) (Auto) 30.9 Monocytes (%) (Auto) 8.8 Eosinophils (%) (Auto) 0.8 Basophils (%) (Auto) 1.0 Neutrophils # (Auto) 5.6 Lymphocytes # (Auto) 3.0 Monocytes # (Auto) 0.9 Eosinophils # (Auto) 0.1 Basophils # (Auto) 0.1 CBC Comment AUTO DIFF Differential Comment AUTO DIFF CONFIRMED Platelet Estimate NORMAL Platelet Morphology Comment NORMAL Prothrombin Time 39.3 Prothromb Time International 3.4 Ratio Activated Partial 58.5 Thromboplast Time Sodium Level 139 Potassium Level 3.7 Chloride Level 104 Carbon Dioxide Level 26.4 Anion Gap 9 Blood Urea Nitrogen 4 Creatinine 0.94 Estimat Glomerular Filtration 61 Rate Random Glucose 114 Calcium Level 7.9 Radiology Last Impressions Abscess Drainage CT 09/15/16 0000 Signed Impressions: Service Date/Time: Thursday, September 15, 2016 12:50 - CONCLUSION: Uncomplicated CT guided drainage, as above. Ady Jasmine MD Abdomen/Pelvis CT 09/14/16 1802 Signed Impressions: Service Date/Time: Wednesday, September 14, 2016 22:22 - CONCLUSION: 1. Perforation along the proximal duodenum with fluid collection of contrast and air measuring 9.1 x 2.5 cm. 2. Calcified leiomyoma. 3. Mild distention of the urinary bladder. Dr. Villalba notified of these findings. Will Pink MD Cardiovascular: Regular Lungs: Clear Abdomen: Non-distended, Other (s/p IR drain removal; dressing in place c/d/i; tender at insertion site ) Extremities: Other (BLE edema; 2+ pitting ) A/P Assessment and Plan 60-year-old female with complicated medical history who has a contained chronic perforated duodenal ulcer successfully drained by IR -CIR removed drain today -Tolerating regular diet -Continue to monitor WBC/fevers -Continue antibiotics: Diflucan/Rocephin/Flagyl -DVT---heparin drip and Coumadin stopped due to elevated INR -PT -OOB -Okay to transfer to floor from standpoint Attending Note - Dr. Cisneros Tolerating diet Abdomen benign Stable from stdpt Will sign off soon The exam, history, and the medical decision-making described in the above note were completed with the assistance of the mid-level provider. I reviewed and agree with the findings presented. I attest that I had a [id number] encounter with the patient on the same day, and personally performed and documented my assessment and findings in the medical record. Siena Brooks Sep 24, 2016 14:02 Elliott Cisneros MD Sep 25, 2016 17:28
--- NOTE | 2016-09-24 18:32 | PD.ID.CON ---
History of Present Illness Service ID Consult Requested By Reason for Consult Evaluation and M'ment of Primary Care Physician Siena Naidu MD Diagnoses: History of Present Illness is a 60 y/o CF with PMHx of ulcerative colitis, diabetes, IBS presents with dark stools. Patient states that she started having several black stools. Patient reports she had diarrhea with black stools approximately 3 times since evening prior to admission. Patient also reports feeling of extreme weakness and fatigue. Patient denies any headache or dizziness. Patient reports being on prednisone for her ulcerative colitis flare and was on a taper. Patient reports pain in the epigastric region, he cannot quantify or describe the pain. Patient denies any nausea or vomiting denies any coughing up of blood. Denies any fresh blood in the stool. Patient does report decreased appetite. Patient has been followed by General Surgery. Since patient had a contained chronic perforated duodenal ulcer it was successfully drained by IR. IA IR drained abscess grew Hafnia, E.faecalis and yeast. Pt has been on Ceftriaxone IV , Flagyl IV, Diflucan IV. New fevers 100 plus since 09/23/2016. ID consulted for evaluation and Mment of Possible new infection ? HCAP. At the time of my evaluation, patient is on the floor just transferred to the floor today. She has fevers reports chills. Slightly tachycardic. BP appears to be in normal range for her. Pt is on steroids so may not manifest typical SIRS reaction. Denies any SOB, chest pain. Denies any increase in abdominal pain. Lines: Left IJ CL No PIVs Khan cath in place. Review of Systems ROS Limitations: Poor Historian Past Family Social History Allergies: Coded Allergies: No Known Allergies (Verified , 08/23/16) Past Medical History Hyperlipidemia DM Depression Hx of DVT Ulcerative colitis Duodenal ulcer Marcy esophagitis GERD OA IBS Past Surgical History Total colectomy Tubal ligation Reported Medications Reported Meds & Active Scripts Active Levemir Flextouch Pen Inj (Insulin Detemir) 300 unit/3 ML Pen 1 Units SQ DIRECTED Take 13 units in the morning before breakfast. Take 9 units at bedtime. Sarah-Colace (Sennosides-Docusate Sodium) 8.6-50 Mg Tab 1 Tab PO BID PRN Prednisone 5 Mg Tab 5 Mg PO BID Take 2 tabs daily for 7 days, then take 1 tab daily for 7 days. Carafate Liq (Sucralfate) 1 Gm/10 Ml Susp 1 Gm PO ACHS on empty stomach Xifaxan (Rifaximin) 550 Mg Tab 550 Mg PO BID Pantoprazole (Pantoprazole Sodium) 40 Mg Tab 40 Mg PO Q12HR Fluoxetine (Fluoxetine HCl) 20 Mg Capsule 20 Mg PO DAILY Humulin R Inj (Insulin Human Regular) 1,000 Unit/10 Ml Vial 2 Units SQ TIDAC PRN IMPORTANT TO EAT A MEAL WITHIN 30-60 MINUTES OF DOSING Fluconazole 200 Mg Tab 200 Mg PO DAILY Alprazolam 1 Mg Tab 1 Mg PO Q8H PRN Hydrocodone-Acetaminophen 10-325 mg Tab 1 Tab PO Q4H PRN Active Ordered Medications Current Medications Medications (Trade) Dose Ordered Sig/Ani Route Start Time Stop Time Status Last Admin (NS Flush) 2 ml UNSCH PRN IV FLUSH 09/14/16 12:30 09/19/16 14:35 (NS Flush) 2 ml BID IV FLUSH 09/14/16 21:00 09/24/16 08:21 (Zofran Inj) 4 mg Q6H PRN IV 09/14/16 12:45 09/19/16 14:35 (Xanax) 1 mg Q8H PRN PO 09/14/16 12:45 09/24/16 08:22 (PROzac) 20 mg DAILY PO 09/15/16 09:00 09/24/16 08:22 (D50w (Vial) Inj) 50 ml UNSCH PRN IV 09/14/16 12:45 Glucagon 1 mg 1 mg UNSCH PRN OTHER 09/14/16 12:45 (Flagyl 500 Mg Inj) 100 ml @ 100 mls/hr Q8H IV 09/14/16 16:00 09/24/16 08:21 (Morphine Inj) 4 mg Q3H PRN IV 09/14/16 22:30 09/24/16 11:38 (Narcan Inj) 0.4 mg UNSCH PRN IV 09/14/16 22:30 Sodium Chloride 10 ml 10 ml BID IRRIGATION 09/15/16 21:00 09/24/16 08:21 Fluconazole/ Sodium Chloride 200 ml @ 100 mls/hr Q24H IV 09/15/16 17:00 09/23/16 16:51 Dextrose/Sodium Chloride 1,000 ml @ 100 mls/hr Q10H IV 09/16/16 12:15 09/24/16 14:44 Potassium Chloride 100 ml @ 50 mls/hr Q2H PRN IV 09/16/16 12:15 (KCl 20 Meq Premix Inj) 100 ml @ 50 mls/hr Q2H PRN IV 09/16/16 12:15 09/20/16 17:11 Potassium Bicarb/ Potassium Chloride 50 meq 50 meq UNSCH PRN PO 09/16/16 12:15 Potassium Chloride 100 ml @ 25 mls/hr UNSCH PRN IV 09/16/16 12:15 09/22/16 05:24 Potassium Chloride 100 ml @ 50 mls/hr Q2H PRN IV 09/16/16 12:15 09/19/16 10:53 (Magnesium Sulfate Inj/NS Inj) 100 ml @ 50 mls/hr UNSCH PRN IV 09/16/16 12:15 Magnesium Oxide 800 mg 800 mg UNSCH PRN PO 09/16/16 12:15 09/22/16 05:24 (Magnesium Sulfate Inj/NS Inj) 100 ml @ 50 mls/hr UNSCH PRN IV 09/16/16 12:15 09/16/16 22:38 Potassium Phosphate 2000 mg 2,000 mg Q4H PRN PO 09/16/16 12:15 (Sodium Phosphate Inj/NS 250 ml Inj) 250 ml @ 42 mls/hr UNSCH PRN IV 09/16/16 12:15 Potassium Phosphate 2000 mg 2,000 mg UNSCH PRN PO/TUBE 09/16/16 12:15 (Potassium Phosphate Inj/NS 250 ml Inj) 260 ml @ 42 mls/hr UNSCH PRN IV 09/16/16 12:15 09/16/16 22:39 (Protonix Inj) 40 mg Q12H IV PUSH 09/18/16 14:00 09/24/16 13:12 (Melatonin) 5 mg HS PRN PO 09/20/16 21:00 (Miralax) 17 gm BID PO 09/20/16 21:00 09/20/16 20:14 Oxycodone HCl 5 mg 5 mg Q3H PRN PO 09/21/16 12:00 09/24/16 01:56 (Zosyn 3.375 Gm Premix) 50 ml @ 100 mls/hr Q6H IV 09/23/16 21:00 09/24/16 08:21 Family History reviewed and NC. Social History No alcohol, no smoking or drugs. Physical Exam Vital Signs Vital Signs Date Time Temp Pulse Resp B/P Pulse Ox O2 Delivery O2 Flow Rate FiO2 09/24/16 17:00 101.3 88 20 123/64 98 09/24/16 14:00 94 09/24/16 12:00 88 09/24/16 12:00 98.8 86 21 100/51 96 09/24/16 11:50 12 09/24/16 10:00 85 09/24/16 08:00 100.6 81 15 109/52 95 09/24/16 08:00 82 09/24/16 06:00 84 09/24/16 04:00 100.2 81 16 115/56 93 09/24/16 04:00 81 09/24/16 02:00 80 09/24/16 00:00 98.5 83 19 100/56 95 09/24/16 00:00 83 09/23/16 22:00 84 09/23/16 20:00 99.4 80 18 103/55 98 09/23/16 20:00 80 09/23/16 19:05 97 Physical Exam GENERAL: Obese, well-developed patient, in no apparent distress. SKIN: No rashes, ecchymoses or lesions. Cool and dry. HEAD: Atraumatic. Normocephalic. No temporal or scalp tenderness. EYES: Pupils equal round and reactive. Extraocular motions intact. No scleral icterus. No injection or drainage. ENT: Nose without bleeding, purulent drainage or septal hematoma. Throat without erythema, tonsillar hypertrophy or exudate. Uvula midline. Airway patent. NECK: Trachea midline. Supple, nontender, no meningeal signs. CARDIOVASCULAR: Regular rate and rhythm without murmurs. RESPIRATORY: Clear to auscultation. Breath sounds equal bilaterally. No wheezes , rales, or rhonchi. GASTROINTESTINAL: Obese, Abdomen soft, non-tender, nondistended. Prior drain site with no e.o infection. MUSCULOSKELETAL: Extremities without clubbing, cyanosis. 2-3 plus pedal edema. NEUROLOGICAL: Awake and alert. Grossly non focal Psych cooperative IV line sites with no e.o infection. Laboratory Laboratory Tests Test 09/24/16 04:25 White Blood Count 9.6 Red Blood Count 2.84 Hemoglobin 8.8 Hematocrit 26.5 Mean Corpuscular Volume 93.6 Mean Corpuscular Hemoglobin 31.2 Mean Corpuscular Hemoglobin 33.3 Concent Red Cell Distribution Width 16.1 Platelet Count 337 Mean Platelet Volume 8.5 Neutrophils (%) (Auto) 58.5 Lymphocytes (%) (Auto) 30.9 Monocytes (%) (Auto) 8.8 Eosinophils (%) (Auto) 0.8 Basophils (%) (Auto) 1.0 Neutrophils # (Auto) 5.6 Lymphocytes # (Auto) 3.0 Monocytes # (Auto) 0.9 Eosinophils # (Auto) 0.1 Basophils # (Auto) 0.1 CBC Comment AUTO DIFF Differential Comment AUTO DIFF CONFIRMED Platelet Estimate NORMAL Platelet Morphology Comment NORMAL Prothrombin Time 39.3 Prothromb Time International 3.4 Ratio Activated Partial 58.5 Thromboplast Time Sodium Level 139 Potassium Level 3.7 Chloride Level 104 Carbon Dioxide Level 26.4 Anion Gap 9 Blood Urea Nitrogen 4 Creatinine 0.94 Estimat Glomerular Filtration 61 Rate Random Glucose 114 Calcium Level 7.9 Result Diagram: 09/24/1642409/24/16 0425 Imaging Last Impressions Abdomen/Pelvis CT 09/23/16 0000 Signed Impressions: Service Date/Time: Friday, September 23, 2016 15:49 - CONCLUSION: 1. Basically complete resolution of previously seen abscess with a few gas bubbles and mild haziness remaining the upper abdominal mesentery. 2. Slight anasarca and bilateral pleural effusions, left lung base consolidation. Whit Bullard MD Upper Extremity Ultrasound 09/18/16 0000 Signed Impressions: Service Date/Time: Sunday, September 18, 2016 13:11 - CONCLUSION: 1. Extensive deep venous thrombosis and superficial thrombosis left upper extremity. Pee Mcclure MD FACRADDENDUM: The above conclusion should read that there is deep venous thrombosis in the right upper extremity. Hemanth Tapia MD Lower Extremity Ultrasound 09/18/16 0000 Signed Impressions: Service Date/Time: Sunday, September 18, 2016 16:21 - CONCLUSION: Bilateral lower extremity deep venous thrombosis with nonocclusive thrombus within the right mid superficial femoral vein and right greater saphenous vein as well as left popliteal vein and occlusive DVT within the right posterior tibial and left peroneal veins. Nahun Bray MD Chest X-Ray 09/18/16 0000 Signed Impressions: Service Date/Time: Sunday, September 18, 2016 23:03 - CONCLUSION: 1. Abnormal position of the left IJ line with distal tip in the left axillary vein. 2. Left basilar opacity most likely representing either atelectasis or consolidation. Angel Perez MD Abscess Drainage CT 09/15/16 0000 Signed Impressions: Service Date/Time: Thursday, September 15, 2016 12:50 - CONCLUSION: Uncomplicated CT guided drainage, as above. Ady Jasmine MD Assessment and Plan Assessment and Plan Possible Sepsis on admission in an Immune compromised patient on steroids Contained perforated duodenal ulcer s/p IR guided drainage. Ulcerative Colitis was on steroids (ppt factor for ulcer) IBS New fevers ? New infection vs drug fever. Recs Blood cultures (1 from periphery and 1 from CL) Consult vascular (place a PIV and remove the CL) DC Khan UA by straight cath CXR stat Continue Zosyn IV Continue Diflucan change to oral Continue Flagyl change to oral. PIVs overnight may not be able to sustain multiple IV antibiotics. Check lactic acid. If any change in clinical condition suggestive of Sepsis then add Vanco IV overnight and start Micafungin IV. If diarrhea check Cdiff. d/w resident in . Evy York MD Sep 24, 2016 18:32
--- NOTE | 2016-09-24 19:24 | RADRPT ---
EXAM DATE/TIME: 09/24/2016 19:14 [facility] COMPARISON: CHEST SINGLE AP, September 18, 2016, 23:03. INDICATIONS : Short of breath. Evaluate for pneumonia. MEDICAL HISTORY : Cardiovascular disease. Ulcers. Colilitis. SURGICAL HISTORY : Tubal ligation. Large intestine removed. Dilitation of esophagus. ENCOUNTER: Subsequent ACUITY: 3 days PAIN SCORE: 0/10 LOCATION: Bilateral chest FINDINGS: Improved consolidation in the left lower lung with some residual air bronchograms. Entire left hemid iaphragm is well delineated. Right lung is clear. The heart is normal size. Left supraclavicular l ine tip remains projected in the left axilla, unchanged from prior. CONCLUSION: Partial resolution of the left lower lobe consolidation. He Owen MD on September 24, 2016 at 19:21 Board Certified Radiologist. This report was verified electronically.
[2016-09-24 20:40] LABS: BACTERIA, URINE RARE /hpf; BLOOD, URINE NEG (NEG); GLUCOSE,URINE NEG (NEG); KETONE, URINE NEG (NEG); MUCUS URINE FEW /lpf (OCC); NITRITE,URINE NEG (NEG); URIC ACID CRYSTALS, URINE OCC /hpf; URINE COLOR YELLOW (YELLW/STRAW)
[2016-09-24 20:41] LABS: COMMENT (UR) CATH-CULTURE IND; CULTURE IF INDICATED CATH CULTURE IND
[2016-09-24] MEDS: metroNIDAZOLE 500 MG TAB PO SCH (21:45)
[2016-09-24] MEDS ORDERED: ACETAMINOPHEN 325 MG TAB PO PRN (22:00)
[2016-09-25] VITALS (7 sets, daily range): BP systolic 105–139; BP diastolic 57–81; PULSE 63–96; RESP 18; TEMP 97–98.4; O2SAT 95–100
[2016-09-25] MEDS ORDERED: LORazepam 1 MG TAB PO ONE (01:45)
[2016-09-25] MEDS: PANTOPRAZOLE SODIUM 40 MG VIAL IV PUSH SCH ×2 (02:00→13:46)
[2016-09-25] MEDS: ALPRAZolam 1 MG TAB PO PRN ×3 (02:35→20:30)
[2016-09-25] MEDS: PIPERACIL-TAZO 3.375 GM PREMIX 50 ML IV SCH ×4 (02:54→22:22)
[2016-09-25 05:51] LABS: AUTOMATED NEUTROPHIL # 6.7 TH/MM3 (1.8-7.7); BASOPHIL # 0.1 TH/MM3 (0-0.2); EOSINOPHIL % 0.2 % (0.0-4.0); HEMATOCRIT 31.5 % (35.0-46.0); HEMO FLAGS DIFF FINAL; LYMPH % 20.3 % (9.0-44.0); LYMPHOCYTE # 1.9 TH/MM3 (1.0-4.8); MEAN CELL VOLUME 90.7 FL (80.0-100.0); MEAN CORPUSCULAR HEMOGLOBIN 29.5 PG (27.0-34.0); MEAN CORPUSCULAR HGB CONC 32.6 % (32.0-36.0); MONO % 8.4 % (0.0-8.0); NEUT % 70.1 % (16.0-70.0); PLATELET COUNT 393 TH/MM3 (150-450); RED BLOOD COUNT 3.47 MIL/MM3 (4.00-5.30); RED CELL DISTRIBUTION WIDTH 16.2 % (11.6-17.2); WHITE BLOOD COUNT 9.5 TH/MM3 (4.0-11.0)
[2016-09-25] MEDS: metroNIDAZOLE 500 MG TAB PO SCH ×3 (05:53→22:22)
[2016-09-25 06:04] LABS: APTT (PATIENT) 34.5 SEC (24.3-30.1); PROTHROMBIN TIME - PATIENT 58.9 SEC (9.8-11.6)
[2016-09-25 06:16] LABS: BICARBONATE 25.6 MEQ/L (21.0-32.0); POTASSIUM 3.7 MEQ/L (3.5-5.1)
[2016-09-25] MEDS: INSULIN ASPART SUPPLEMENTAL SCALE SQ SCH ×4 (06:23→21:00)
[2016-09-25] MEDS: POLYETHYLENE GLYCOL 17 GM PKG PO SCH ×2 (09:00→21:00)
[2016-09-25] MEDS: SODIUM CHLORIDE 0.9% 10 ML VIAL IRRIGATION SCH ×2 (09:00→21:00)
--- NOTE | 2016-09-25 09:09 | HHI.FPPN ---
Subjective Remarks Pt seen and examined this morning. Pt has been afebrile overnight. Yesterday she was febrile with Tmax of 101.3. Due to concern for sepsis central line was removed as well as Khan. Lactic acid was normal at 1.5. This morning she reports that her abdominal pain is stable. She denies chest pain, shortness of breath. Swelling in her upper and lower extremities is stable. Overnight patient had several liquid stools. C. difficile PCR ordered, pending. Objective Vitals Vital Signs Date Time Temp Pulse Resp B/P Pulse Ox O2 Delivery O2 Flow Rate FiO2 09/25/16 04:00 97.9 82 18 126/70 98 09/25/16 00:00 Room Air 09/25/16 00:00 97.8 96 18 139/74 95 09/24/16 20:00 Room Air 09/24/16 20:00 99.6 95 18 131/70 95 09/24/16 17:00 101.3 88 20 123/64 98 09/24/16 14:00 94 09/24/16 12:00 88 09/24/16 12:00 98.8 86 21 100/51 96 09/24/16 11:50 12 09/24/16 10:00 85 I/O 09/24/16 09/24/16 09/24/16 09/25/16 09/25/16 09/25/16 07:00 15:00 23:00 07:00 15:00 23:00 Intake Total 829 ml 1132 ml Output Total 925 ml 1150 ml Balance -96 ml -18 ml Intake Oral 120 ml 240 ml IV Total 709 ml 892 ml Output Urine Total 925 ml 1150 ml Drainage Total 0 ml Bladder Scan Volume Amount 34 ml # Bowel Movements 2 0 1 Result Diagram: 09/25/16 0515 09/25/16 0515 Objective Remarks GENERAL: This is an elderly female lying comfortably in bed, no acute distress. SKIN: . Cool and dry. HEENT: Atraumatic. Normocephalic. Pupils equal round and reactive. Extraocular motions intact. No scleral icterus. No injection or drainage. Trachea midline. CARDIOVASCULAR: Regular rate and rhythm RESPIRATORY: Bibasilar crackles. Good air movement. No wheezes, rales, or rhonchi. GASTROINTESTINAL: Abdomen soft, mildly tender to palpation in right upper quadrant, improving. No guarding. Non-distended. No rebound. No masses appreciated. BS+. Bandage over right upper abdomen c/d/i. Minimal serous drainage. MUSCULOSKELETAL: Edema in upper and lower extremities, trace in upper extremities, 2+ in lower extremities. Mildly tender B/L. No erythema. No unilateral asymmetry. PT/DP pulses 2+ B/L NEUROLOGICAL: Awake and alert. Motor and sensory grossly within normal limits. Normal speech. A/P Assessment and Plan This is a 60-year-old female with history of ulcerative colitis and ulcers, presents with severe anemia found to have perforated ulcer and abscess formation. Gastroenterology and colorectal surgery consulted. IR drainage completed 09/15, uncomplicated. Abscess appears resolved on CT (09/23). Patient currently on Coumadin for upper and lower extremity DVTs. Discharge Planning Timeframe unclear. Discharge pending patient being able to tolerate a normal diet and abscess drain removal and further recs from hematology regarding upper and lower extremity DVTs. Problem List: (1) Diarrhea Status: Acute Plan: Pt with several episodes of liquid stool after treatment with multiple antibiotics -C. Diff PCR pending (2) Perforated duodenal ulcer Status: Acute Plan: CT scan 09/14 demonstrates a perforation of the duodenum with an abnormal fluid collection with contrast anterior to the mesenteric vasculature measuring 9.12.5 cm with adjacent stranding in the mesentery. There is no free perforation into the abdominal cavity. H&H has been stable, no additional bleeding noted. Patient has been having regular bowel movements, nonbloody General surgery consulted, Dr. Cisneros following, appreciate recommendations -Diet regular. GI previously consulted, now signed off, appreciate recommendations and interventions -Continue MiraLAX -Continue Protonix Infectious disease consulted, appreciate recommendations -Blood culture and Urine culture pending -Pt has been afebrile Medications: Zosyn 3.375 IV daily (09/15- ) Diflucan 400mg po daily (09/25- ) Metronidazole 500mg IV Q8hrs (09/14- ) Pain control: Roxycodone, IV morphine for breakthrough (3) Abscess Status: Acute Plan: CT scan 09/14 shows 9.12.5 cm fluid collection anterior to the mesenteric vasculature with adjacent stranding in the mesentery. IR drainage performed 09/[address] 09/23 "Basically complete resolution of previously seen abscess with a few gas bubbles and mild haziness remaining the upper abdominal mesentery." Drain has been removed. (4) GI bleed Status: Acute Plan: Resolved See plan for perforated lateral ulcer above Status post 4 units packed red blood cells (5) DVT (deep venous thrombosis) Status: Acute Plan: Patient found to have numerous DVTs of the upper and lower extremities. Hematology consulted, appreciate recommendations: -No absolute contraindication to anticoagulation - Heparin and Coumadin both held. Coumadin to be resumed once INR is less than 3.0. - INR 3.4 09/24/16 - Will resume coumadin when INR <3.0 Imaging: Lower extremity ultrasound 09/18: Bilateral lower extremity DVTs with nonocclusive thrombus within the right mid superficial femoral vein and right greater saphenous vein as well as left popliteal vein and occlusive DVT within the right posterior tibial and left peroneal veins. Upper extremity ultrasound 09/18: Extensive DVTs and superficial thrombus is of the left upper extremity. (6) Pleural effusion Status: Acute Plan: Bilateral pleural effusions with left lung consolidation on CT - Possible pneumonia - ID consulted for antibiotic optimization, see above - Pulmonary toilet, Incentive spirometer (7) Hypoalbuminemia Status: Acute Plan: Albumin low at 2.0 on 09/25, improving. -Likely to improve as pts diet progresses -Will give Albumin 5% 12.5 gm IV x1 -Continue to monitor -Consider additional albumin as needed -Will check again tomorrow, following several days of regular diet (8) Depression with anxiety Status: Acute Plan: Continue fluoxetine 20 mg po daily Xanax 1 mg Q8hrs prn anxiety (9) Diabetes Status: Acute Plan: History of chronic diabetes. On insulin at home. -Low dose sliding scale while inpatient, blood sugars have been well controlled. (10) FEN Status: Acute Plan: Fluids: D5 1/2 NS @ 100mls/hr, consider decreasing Electrolytes: Continue to monitor Nutrition: Regular diet DVT ppx: Coumadin to be resumed when INR is 3. GI ppx: Protonix 40 mg Q12hrs Problem Qualifiers (1) GI bleed: Qualified Code: K29.91 - Gastrointestinal hemorrhage associated with gastroduodenitis (2) Diabetes: Qualified Code: E11.9 - Type 2 diabetes mellitus without complication, with long-term current use of insulin Zak Weiss MD R2 Sep 25, 2016 09:09
[2016-09-25] MEDS: FLUCONAZOLE 200 MG TAB PO SCH (10:22)
[2016-09-25] MEDS: FLUoxetine HCL 20 MG CAP PO SCH (10:22)
[2016-09-25] MEDS: SODIUM CHLORIDE 0.9% FLUSH 10 ML FLUSH IV FLUSH SCH ×2 (10:23→22:22)
[2016-09-25] MEDS: DEXT 5%-NACL 0.45% 1000 ML INJ 1,000 ML IV SCH ×2 (10:23→22:19)
[2016-09-25] MEDS ORDERED: ALBUMIN HUMAN 5% 12.5 GM/250 ML BOTTLE IV ONE (12:45)
[2016-09-25 13:21] LABS: C. DIFF EPI 027 PRESUMPTIVE NEGATIVE (NEGATIVE); C. DIFF TOXIN PCR NEGATIVE (NEGATIVE)
[2016-09-25] MEDS: MORPHINE SULFATE 4 MG/ML INJ IV PRN (13:55)
--- NOTE | 2016-09-25 15:41 | PD.ONC.PN ---
Subjective Subjective Remarks Afebrile overnight Patient complains of some occasional diarrhea Denies bleeding Objective Data Date Time Temp Pulse Resp B/P Pulse Ox O2 Delivery O2 Flow Rate FiO2 09/25/16 12:38 Room Air 09/25/16 12:29 78 09/25/16 08:00 97.6 76 18 133/77 100 09/25/16 08:00 Room Air 09/25/16 04:00 97.9 82 18 126/70 98 09/25/16 00:00 Room Air 09/25/16 00:00 97.8 96 18 139/74 95 09/24/16 20:00 Room Air 09/24/16 20:00 99.6 95 18 131/70 95 09/24/16 17:00 101.3 88 20 123/64 98 Result Diagram: 09/25/16 0515 09/25/16 0515 Laboratory Results Laboratory Tests Test 09/24/16 09/24/16 09/25/16 09/25/16 19:30 20:28 05:15 11:06 Urine Color YELLOW Urine Turbidity HAZY Urine pH 5.0 Urine Specific [place] 1.010 Urine Protein NEG mg/dL Urine Glucose (UA) NEG mg/dL Urine Ketones NEG mg/dL Urine Occult Blood NEG Urine Nitrite NEG Urine Bilirubin NEG Urine Urobilinogen LESS THAN 2.0 MG/DL Urine Leukocyte Esterase MOD Urine RBC 6 /hpf Urine WBC 10 /hpf Urine Uric Acid Crystals OCC /hpf Urine Bacteria RARE /hpf Urine Mucus FEW /lpf Microscopic Urinalysis Comment CATH-CULTURE IND Lactic Acid Level 1.5 mmol/L White Blood Count 9.5 TH/MM3 Red Blood Count 3.47 MIL/MM3 Hemoglobin 10.3 GM/DL Hematocrit 31.5 % Mean Corpuscular Volume 90.7 FL Mean Corpuscular Hemoglobin 29.5 PG Mean Corpuscular Hemoglobin 32.6 % Concent Red Cell Distribution Width 16.2 % Platelet Count 393 TH/MM3 Mean Platelet Volume 8.1 FL Neutrophils (%) (Auto) 70.1 % Lymphocytes (%) (Auto) 20.3 % Monocytes (%) (Auto) 8.4 % Eosinophils (%) (Auto) 0.2 % Basophils (%) (Auto) 1.0 % Neutrophils # (Auto) 6.7 TH/MM3 Lymphocytes # (Auto) 1.9 TH/MM3 Monocytes # (Auto) 0.8 TH/MM3 Eosinophils # (Auto) 0.0 TH/MM3 Basophils # (Auto) 0.1 TH/MM3 CBC Comment DIFF FINAL Differential Comment Prothrombin Time 58.9 SEC Prothromb Time International 5.0 RATIO Ratio Activated Partial 34.5 SEC Thromboplast Time Sodium Level 137 MEQ/L Potassium Level 3.7 MEQ/L Chloride Level 102 MEQ/L Carbon Dioxide Level 25.6 MEQ/L Anion Gap 9 MEQ/L Blood Urea Nitrogen 5 MG/DL Creatinine 0.98 MG/DL Estimat Glomerular Filtration 58 ML/MIN Rate Random Glucose 124 MG/DL Calcium Level 8.5 MG/DL Albumin 2.0 GM/DL Stool C. difficile Toxin (PCR) NEGATIVE Stl C. difficile Toxin PRESUMPTIVE Epiderm 027 NEGATIVE Culture Results Microbiology Date/Time Procedure Status Source Growth 09/24/16 19:30 Urine Culture - Preliminary Resulted Urine Clean Catch IMMATURE GROWTH - REINCUBATE 09/24/16 20:28 Aerobic Blood Culture - Preliminary Resulted Blood Peripheral NO GROWTH IN 1 DAY 09/24/16 20:28 Anaerobic Blood Culture - Preliminary Resulted Blood Peripheral NO GROWTH IN 1 DAY 09/24/16 21:39 Wound Culture - Preliminary Resulted Catheter Tip Central Venous Line NO GROWTH IN 24 HOURS. 09/25/16 05:15 Aerobic Blood Culture Received Blood Peripheral Pending 09/25/16 05:15 Anaerobic Blood Culture Received Blood Peripheral Pending Administered Medications Medications (Trade) Dose Ordered Sig/Ani Route PRN Reason Start Time Stop Time Status Last Admin Dose Admin Sodium Chloride (NS Flush) 2 ml UNSCH PRN IV FLUSH FLUSH AFTER USING IV ACCESS 09/14/16 12:30 09/19/16 14:35 Sodium Chloride (NS Flush) 2 ml BID IV FLUSH 09/14/16 21:00 09/25/16 10:23 Ondansetron HCl (Zofran Inj) 4 mg Q6H PRN IV NAUSEA 09/14/16 12:45 09/19/16 14:35 Alprazolam (Xanax) 1 mg Q8H PRN PO ANXIETY 09/14/16 12:45 09/25/16 11:02 Fluoxetine HCl (PROzac) 20 mg DAILY PO 09/15/16 09:00 09/25/16 10:22 Morphine Sulfate (Morphine Inj) 4 mg Q3H PRN IV BREAKTHROUGH PAIN 09/14/16 22:30 09/25/16 13:55 Sodium Chloride 10 ml 10 ml BID IRRIGATION 09/15/16 21:00 09/24/16 08:21 Dextrose/Sodium Chloride (D5W-02/25 NS 1000 ml Inj) 1,000 ml @ 75 mls/hr [id number] IV 09/16/16 12:15 09/25/16 10:23 Pantoprazole Sodium (Protonix Inj) 40 mg Q12H IV PUSH 09/18/16 14:00 09/25/16 13:46 Polyethylene Glycol (Miralax) 17 gm BID PO 09/20/16 21:00 09/24/16 21:45 Oxycodone HCl 5 mg 5 mg Q3H PRN PO PAIN SCALE 5 TO 10 09/21/16 12:00 09/24/16 01:56 Piperacillin Sod/ Tazobactam Sod (Zosyn 3.375 Gm Premix) 50 ml @ 100 mls/hr Q6H IV 09/23/16 21:00 09/25/16 13:55 Fluconazole (Diflucan) 400 mg DAILY PO 09/25/16 09:00 09/25/16 10:22 Metronidazole (Flagyl) 500 mg Q8HR PO 09/24/16 22:00 09/25/16 13:46 Acetaminophen (Tylenol) 650 mg Q4H PRN PO FEVER 09/24/16 22:00 09/24/16 22:10 Objective Remarks GENERAL: Middle aged female upright in bed in no distress SKIN: Warm and dry. No oozing from lines HEAD: Normocephalic. EYES: No injection or drainage. NECK: Supple, trachea midline. CARDIOVASCULAR: Regular rate and rhythm RESPIRATORY: Clear anteriorly. Breathing unlabored. GASTROINTESTINAL: Abdomen soft, mildly tender, non-distended. EXTREMITIES: No cyanosis. Bilateral lower extremity edema MUSCULOSKELETAL: Adequate muscle tone. NEUROLOGICAL: Moving all extremities. Normal speech. Assessment/Plan Problem List: (1) DVT (deep venous thrombosis) Status: Acute Plan: --Coumadin on hold due to supratherapeutic INR (2) GI bleed Status: Acute Plan: --presented to the emergency room with two episodes of dark stool on . --CT ab/pelvis showed perforation of the proximal duodenum with fluid collection and contrast measuring 9.1 x 2.5 cm. Assessment 60y/o female with bilateral upper extremity and lower extremity deep vein thromboses + GI bleed from a duodenal ulcer. --presented to the emergency room with two episodes of dark stool on 2016. --CT ab/pelvis showed perforation of the proximal duodenum with fluid collection and contrast measuring 9.1 x 2.5 cm. Plan 1. INR is 5.0. Her Hgb has improved. There are no obvious signs of bleeding. We will hold off on giving her any reversible agents unless there is bleeding. 2. Coags in a.m. 3. We'll restart Coumadin once INR less than 3 Problem Qualifiers (1) GI bleed: Qualified Code: K29.91 - Gastrointestinal hemorrhage associated with gastroduodenitis Veena Fowler [employer] Sep 25, 2016 15:41
--- NOTE | 2016-09-25 16:55 | HHI.PR ---
Subjective Subjective Notes Getting cleaned up by staff at bedside Very emotional; doesn't feel like she is getting better Objective Vitals/I&O Vital Signs Date Time Temp Pulse Resp B/P Pulse Ox O2 Delivery O2 Flow Rate FiO2 09/25/16 12:38 Room Air 09/25/16 12:29 78 09/25/16 08:00 97.6 18 133/77 100 Labs Laboratory Tests Test 09/24/16 09/24/16 09/25/16 09/25/16 19:30 20:28 05:15 11:06 Urine Color YELLOW Urine Turbidity HAZY Urine pH 5.0 Urine Specific [place] 1.010 Urine Protein NEG Urine Glucose (UA) NEG Urine Ketones NEG Urine Occult Blood NEG Urine Nitrite NEG Urine Bilirubin NEG Urine Urobilinogen LESS THAN 2.0 Urine Leukocyte Esterase MOD Urine RBC 6 Urine WBC 10 Urine Uric Acid Crystals OCC Urine Bacteria RARE Urine Mucus FEW Microscopic Urinalysis Comment CATH-CULTURE IND Lactic Acid Level 1.5 White Blood Count 9.5 Red Blood Count 3.47 Hemoglobin 10.3 Hematocrit 31.5 Mean Corpuscular Volume 90.7 Mean Corpuscular Hemoglobin 29.5 Mean Corpuscular Hemoglobin 32.6 Concent Red Cell Distribution Width 16.2 Platelet Count 393 Mean Platelet Volume 8.1 Neutrophils (%) (Auto) 70.1 Lymphocytes (%) (Auto) 20.3 Monocytes (%) (Auto) 8.4 Eosinophils (%) (Auto) 0.2 Basophils (%) (Auto) 1.0 Neutrophils # (Auto) 6.7 Lymphocytes # (Auto) 1.9 Monocytes # (Auto) 0.8 Eosinophils # (Auto) 0.0 Basophils # (Auto) 0.1 CBC Comment DIFF FINAL Differential Comment Prothrombin Time 58.9 Prothromb Time International 5.0 Ratio Activated Partial 34.5 Thromboplast Time Sodium Level 137 Potassium Level 3.7 Chloride Level 102 Carbon Dioxide Level 25.6 Anion Gap 9 Blood Urea Nitrogen 5 Creatinine 0.98 Estimat Glomerular Filtration 58 Rate Random Glucose 124 Calcium Level 8.5 Albumin 2.0 Stool C. difficile Toxin (PCR) NEGATIVE Stl C. difficile Toxin PRESUMPTIVE Epiderm 027 NEGATIVE Date/Time Procedure Status Source Growth 09/25/16 05:15 Aerobic Blood Culture Received Blood Peripheral Pending 09/25/16 05:15 Anaerobic Blood Culture Received Blood Peripheral Pending 09/24/16 21:39 Wound Culture - Preliminary Resulted Catheter Tip Central Venous Line NO GROWTH IN 24 HOURS. 09/24/16 20:28 Aerobic Blood Culture - Preliminary Resulted Blood Peripheral NO GROWTH IN 1 DAY 09/24/16 20:28 Anaerobic Blood Culture - Preliminary Resulted Blood Peripheral NO GROWTH IN 1 DAY 09/24/16 19:30 Urine Culture - Preliminary Resulted Urine Clean Catch IMMATURE GROWTH - REINCUBATE Radiology Last Impressions Abscess Drainage CT 09/15/16 0000 Signed Impressions: Service Date/Time: Thursday, September 15, 2016 12:50 - CONCLUSION: Uncomplicated CT guided drainage, as above. Ady Jasmine MD Abdomen/Pelvis CT 09/14/16 1802 Signed Impressions: Service Date/Time: Wednesday, September 14, 2016 22:22 - CONCLUSION: 1. Perforation along the proximal duodenum with fluid collection of contrast and air measuring 9.1 x 2.5 cm. 2. Calcified leiomyoma. 3. Mild distention of the urinary bladder. Dr. Villalba notified of these findings. Will Pink MD Cardiovascular: Regular Lungs: Clear Abdomen: Other (abdomen soft; minimally tender at prior drain insertion site; drain removed with c/d/i dressing over ) Extremities: Other (BLE edema; 2+ pitting ) A/P Assessment and Plan 60-year-old female with complicated medical history who has a contained chronic perforated duodenal ulcer successfully drained by IR -Tolerating regular diet -Continue to monitor WBC/fevers -Continue antibiotics: Diflucan/Rocephin/Flagyl -C-diff ordered -DVT---heparin drip and Coumadin stopped due to elevated INR -PT -OOB Attending Note - Dr. Cisneros Abdomen benign and soft Stable from stdpt. Will sign off; reconsult if needed. The exam, history, and the medical decision-making described in the above note were completed with the assistance of the mid-level provider. I reviewed and agree with the findings presented. I attest that I had a [id number] encounter with the patient on the same day, and personally performed and documented my assessment and findings in the medical record. Siena Brooks Sep 25, 2016 16:55 Elliott Cisneros MD Sep 25, 2016 17:29
[2016-09-26] VITALS (7 sets, daily range): BP systolic 113–142; BP diastolic 55–78; PULSE 66–87; RESP 18–20; TEMP 98.1–99.6; O2SAT 96–99
[2016-09-26] MEDS: PANTOPRAZOLE SODIUM 40 MG VIAL IV PUSH SCH (02:09)
[2016-09-26] MEDS: PIPERACIL-TAZO 3.375 GM PREMIX 50 ML IV SCH ×3 (02:09→14:28)
[2016-09-26] MEDS: oxyCODONE HCL ORAL CONC 20 MG/ML SYRINGE PO PRN (02:14)
[2016-09-26] MEDS: ALPRAZolam 1 MG TAB PO PRN ×2 (04:51→17:32)
[2016-09-26] MEDS: metroNIDAZOLE 500 MG TAB PO SCH ×3 (04:51→22:41)
[2016-09-26 06:01] LABS: APTT (PATIENT) 36.9 SEC (24.3-30.1); INTERNATIONAL NORMALIZED RATIO 5.4 RATIO; PROTHROMBIN TIME - PATIENT 64.4 SEC (9.8-11.6)
[2016-09-26 06:03] LABS: AUTOMATED NEUTROPHIL # 3.9 TH/MM3 (1.8-7.7); BASOPHIL # 0.1 TH/MM3 (0-0.2); BASOPHIL % 1.5 % (0.0-2.0); EOSINOPHIL # 0.1 TH/MM3 (0-0.4); EOSINOPHIL % 1.8 % (0.0-4.0); HEMATOCRIT 28.3 % (35.0-46.0); HEMO FLAGS DIFF FINAL; LYMPH % 32.3 % (9.0-44.0); LYMPHOCYTE # 2.4 TH/MM3 (1.0-4.8); MEAN CELL VOLUME 88.2 FL (80.0-100.0); MEAN CORPUSCULAR HEMOGLOBIN 28.5 PG (27.0-34.0); MEAN CORPUSCULAR HGB CONC 32.3 % (32.0-36.0); MONO % 12.4 % (0.0-8.0); PLATELET COUNT 272 TH/MM3 (150-450); RED BLOOD COUNT 3.21 MIL/MM3 (4.00-5.30); RED CELL DISTRIBUTION WIDTH 16.3 % (11.6-17.2); WHITE BLOOD COUNT 7.4 TH/MM3 (4.0-11.0)
[2016-09-26 06:18] LABS: ALT (GPT) LESS THAN 6 U/L (10-53); ANION GAP 10 MEQ/L (5-15); AST (GOT) 13 U/L (15-37); BICARBONATE 26.4 MEQ/L (21.0-32.0); CHLORIDE 104 MEQ/L (98-107); GLOMERULAR FILTRATION RATE 62 ML/MIN (>89); POTASSIUM 4.1 MEQ/L (3.5-5.1); SODIUM (NA) 140 MEQ/L (136-145)
[2016-09-26 06:20] LABS: ALKALINE PHOSPHATASE 67 U/L (45-117); TOTAL BILIRUBIN ADULT 0.6 MG/DL (0.2-1.0)
[2016-09-26 06:23] LABS: BLOOD UREA NITROGEN 3 MG/DL (7-18)
[2016-09-26] MEDS: INSULIN ASPART SUPPLEMENTAL SCALE SQ SCH ×4 (07:00→21:00)
[2016-09-26] MEDS: SODIUM CHLORIDE 0.9% 10 ML VIAL IRRIGATION SCH ×2 (09:00→21:00)
[2016-09-26] MEDS: POLYETHYLENE GLYCOL 17 GM PKG PO SCH ×2 (10:12→22:38)
[2016-09-26] MEDS: SODIUM CHLORIDE 0.9% FLUSH 10 ML FLUSH IV FLUSH SCH ×2 (10:12→22:40)
[2016-09-26] MEDS: FLUoxetine HCL 20 MG CAP PO SCH (10:18)
[2016-09-26] MEDS: FLUCONAZOLE 200 MG TAB PO SCH (10:18)
--- NOTE | 2016-09-26 10:39 | HHI.FPPN ---
Subjective Remarks Patient seen and examined today. She currently states that she has been having diarrhea over the past day. It has been liquidy, and dark, as dark as when she first came in for her GI bleed. Her last BM was at 4AM, and has passed several BMs over night. No dizziness, headache, lightheadedness, weakness. No nausea, vomiting, fevers, chills, pain in chest, shortness of breath, pain in abdomen, change in urinary habits. Objective Vitals Vital Signs Date Time Temp Pulse Resp B/P Pulse Ox O2 Delivery O2 Flow Rate FiO2 09/26/16 08:00 99.6 66 18 118/55 97 09/26/16 04:00 98.1 79 20 113/57 99 09/26/16 00:00 98.5 67 18 119/71 98 09/25/16 21:30 98.4 87 18 105/57 98 09/25/16 20:00 Room Air 09/25/16 16:00 97.1 63 18 106/58 98 09/25/16 12:38 Room Air 09/25/16 12:29 78 09/25/16 12:00 97.0 70 18 125/81 99 I/O 09/25/16 09/25/16 09/25/16 09/26/16 09/26/16 09/26/16 07:00 15:00 23:00 07:00 15:00 23:00 Intake Total 240 ml 655 ml 726 ml Balance 240 ml 655 ml 726 ml Intake Oral 240 ml 120 ml 240 ml IV Total 535 ml 486 ml # Voids 4 1 5 # Bowel Movements 1 3 3 Result Diagram: 09/26/16 0503 09/26/16 0523 Objective Remarks GENERAL: This is an elderly female lying comfortably in bed, no acute distress. SKIN: . Cool and dry. HEENT: Atraumatic. Normocephalic. Pupils equal round and reactive. Extraocular motions intact. No scleral icterus. No injection or drainage. Trachea midline. CARDIOVASCULAR: Regular rate and rhythm RESPIRATORY: Bibasilar crackles. Good air movement. No wheezes, rales, or rhonchi. GASTROINTESTINAL: Abdomen soft, mildly tender to palpation in right upper quadrant, improving. No guarding. Non-distended. No rebound. No masses appreciated. BS+. Bandage over right upper abdomen c/d/i. Minimal serous drainage. MUSCULOSKELETAL: Edema in upper and lower extremities, trace in upper extremities, 2+ in lower extremities. Mildly tender B/L. No erythema. No unilateral asymmetry. PT/DP pulses 2+ B/L NEUROLOGICAL: Awake and alert. Motor and sensory grossly within normal limits. Normal speech. Medications and IVs Current Medications Medications (Trade) Dose Ordered Sig/Ani Route Start Time Stop Time Status Last Admin (NS Flush) 2 ml UNSCH PRN IV FLUSH 09/14/16 12:30 09/19/16 14:35 (NS Flush) 2 ml BID IV FLUSH 09/14/16 21:00 09/25/16 22:22 (Zofran Inj) 4 mg Q6H PRN IV 09/14/16 12:45 09/19/16 14:35 (Xanax) 1 mg Q8H PRN PO 09/14/16 12:45 09/25/16 20:30 (PROzac) 20 mg DAILY PO 09/15/16 09:00 09/25/16 10:22 (D50w (Vial) Inj) 50 ml UNSCH PRN IV 09/14/16 12:45 (Glucagon Inj) 1 mg UNSCH PRN OTHER 09/14/16 12:45 (Morphine Inj) 4 mg Q3H PRN IV 09/14/16 22:30 09/25/16 13:55 (Narcan Inj) 0.4 mg UNSCH PRN IV 09/14/16 22:30 Sodium Chloride 10 ml 10 ml BID IRRIGATION 09/15/16 21:00 09/25/16 21:00 (D5W-02/25 NS 1000 ml Inj) 1,000 ml @ 75 mls/hr [id number] IV 09/16/16 12:15 09/25/16 22:19 (Protonix Inj) 40 mg Q12H IV PUSH 09/18/16 14:00 09/26/16 02:09 (Melatonin) 5 mg HS PRN PO 09/20/16 21:00 (Miralax) 17 gm BID PO 09/20/16 21:00 09/24/16 21:45 Oxycodone HCl 5 mg 5 mg Q3H PRN PO 09/21/16 12:00 09/26/16 02:14 (Zosyn 3.375 Gm Premix) 50 ml @ 100 mls/hr Q6H IV 09/23/16 21:00 09/26/16 02:09 (Diflucan) 400 mg DAILY PO 09/25/16 09:00 09/25/16 10:22 (Flagyl) 500 mg Q8HR PO 09/24/16 22:00 09/26/16 04:51 (Tylenol) 650 mg Q4H PRN PO 09/24/16 22:00 09/24/16 22:10 A/P Assessment and Plan This is a 60-year-old female with history of ulcerative colitis and ulcers, presents with severe anemia found to have perforated ulcer and abscess formation. Gastroenterology and colorectal surgery consulted. IR drainage completed 09/15, uncomplicated. Abscess appears resolved on CT (09/23). Patient currently on Coumadin for upper and lower extremity DVTs. Discharge Planning Timeframe unclear. Discharge pending patient being able to tolerate a normal diet and abscess drain removal and further recs from hematology regarding upper and lower extremity DVTs. Problem List: (1) Diarrhea Status: Acute Plan: Pt with several episodes of liquid stool after treatment with multiple antibiotics. Patient states the diarrhea is as dark as when she first came in -C. Diff negative - F/U Hemoccult - F/U GI consult (2) Perforated duodenal ulcer Status: Acute Plan: CT scan 09/14 demonstrates a perforation of the duodenum with an abnormal fluid collection with contrast anterior to the mesenteric vasculature measuring 9.12.5 cm with adjacent stranding in the mesentery. There is no free perforation into the abdominal cavity. H&H has decrease Patient has been having regular bowel movements, nonbloody General surgery consulted, Dr. Cisneros signed off (09/26), appreciate recommendations -Diet regular. GI previously consulted, now signed off, reconsulting (09/26), appreciate recommendations and interventions -Continue MiraLAX -Continue Protonix Infectious disease consulted, appreciate recommendations -Blood culture and Urine culture (09/24) no growth to date -Pt has been afebrile Medications: Zosyn 3.375 IV daily (09/15- ) Diflucan 400mg po daily (09/25- ) Metronidazole 500mg IV Q8hrs (09/14- ) Pain control: Roxycodone, IV morphine for breakthrough (3) Abscess Status: Acute Plan: CT scan 09/14 shows 9.12.5 cm fluid collection anterior to the mesenteric vasculature with adjacent stranding in the mesentery. IR drainage performed 09/[address] 09/23 "Basically complete resolution of previously seen abscess with a few gas bubbles and mild haziness remaining the upper abdominal mesentery." Drain has been removed. (4) GI bleed Status: Acute Plan: Resolved See plan for perforated lateral ulcer above Status post 4 units packed red blood cells (5) DVT (deep venous thrombosis) Status: Acute Plan: Patient found to have numerous DVTs of the upper and lower extremities. Hematology consulted, appreciate recommendations: -No absolute contraindication to anticoagulation - Heparin and Coumadin both held. Coumadin to be resumed once INR is less than 3.0. - INR 5.4 09/26/16 - Will resume coumadin when INR <3.0 Imaging: Lower extremity ultrasound 09/18: Bilateral lower extremity DVTs with nonocclusive thrombus within the right mid superficial femoral vein and right greater saphenous vein as well as left popliteal vein and occlusive DVT within the right posterior tibial and left peroneal veins. Upper extremity ultrasound 09/18: Extensive DVTs and superficial thrombus is of the left upper extremity. (6) Pleural effusion Status: Acute Plan: Bilateral pleural effusions with left lung consolidation on CT - ID consulted for antibiotic optimization, see above - Pulmonary toilet, Incentive spirometer (7) Hypoalbuminemia Status: Acute Plan: Albumin low at 2.0 on 09/25, improving. -Likely to improve as pts diet progresses -Will give Albumin 5% 12.5 gm IV x1 -Continue to monitor -Consider additional albumin as needed -Will check again tomorrow, following several days of regular diet (8) Depression with anxiety Status: Acute Plan: Continue fluoxetine 20 mg po daily Xanax 1 mg Q8hrs prn anxiety (9) Diabetes Status: Acute Plan: History of chronic diabetes. On insulin at home. -Low dose sliding scale while inpatient, blood sugars have been well controlled. (10) FEN Status: Acute Plan: Fluids: D5 1/2 NS @ 100mls/hr, consider decreasing Electrolytes: Continue to monitor Nutrition: Regular diet DVT ppx: Coumadin to be resumed when INR is 3. GI ppx: Protonix 40 mg Q12hrs Addendum Remarks Called by nursing @ 1053 for peripheral line infiltration. The nurse stated that vascular access did not want to place another PIV due to the large number of clots in the patient's extremities. Called by vascular access shortly thereafter. Recurrent issues with PIV lines. Currently they are concerned that even if they can get another line placed it with infiltrate due to upstream thrombi, just as this past PIV most likely had. I agree with the current concerns and have placed an order for a central line placement. Problem Qualifiers (1) GI bleed: Qualified Code: K29.91 - Gastrointestinal hemorrhage associated with gastroduodenitis (2) Diabetes: Qualified Code: E11.9 - Type 2 diabetes mellitus without complication, with long-term current use of insulin Elliott Willingham MD R1 Sep 26, 2016 10:39
[2016-09-26] MEDS: DEXT 5%-NACL 0.45% 1000 ML INJ 1,000 ML IV SCH ×2 (11:39→22:47)
--- NOTE | 2016-09-26 13:20 | HHI.GIFU ---
Subjective Remarks Resting in bed. Eating small amounts. Epigastric tenderness on exam, although she denies abdominal pain. States she has been having dark tarry stools x 2 days. (Marjan Doyle) Objective Vitals I&O Vital Signs Date Time Temp Pulse Resp B/P Pulse Ox O2 Delivery O2 Flow Rate FiO2 09/26/16 10:44 Room Air 09/26/16 08:00 99.6 66 18 118/55 97 09/26/16 08:00 68 09/26/16 04:00 98.1 79 20 113/57 99 09/26/16 00:00 98.5 67 18 119/71 98 09/25/16 21:30 98.4 87 18 105/57 98 09/25/16 20:00 Room Air 09/25/16 16:00 97.1 63 18 106/58 98 I/O 09/25/16 09/25/16 09/25/16 09/26/16 09/26/16 09/26/16 07:00 15:00 23:00 07:00 15:00 23:00 Intake Total 240 ml 655 ml 726 ml Balance 240 ml 655 ml 726 ml Intake Oral 240 ml 120 ml 240 ml IV Total 535 ml 486 ml # Voids 4 1 5 # Bowel Movements 1 3 3 Laboratory Laboratory Tests Test 09/26/16 09/26/16 05:03 05:23 White Blood Count 7.4 Red Blood Count 3.21 Hemoglobin 9.2 Hematocrit 28.3 Mean Corpuscular Volume 88.2 Mean Corpuscular Hemoglobin 28.5 Mean Corpuscular Hemoglobin 32.3 Concent Red Cell Distribution Width 16.3 Platelet Count 272 Mean Platelet Volume 8.5 Neutrophils (%) (Auto) 52.0 Lymphocytes (%) (Auto) 32.3 Monocytes (%) (Auto) 12.4 Eosinophils (%) (Auto) 1.8 Basophils (%) (Auto) 1.5 Neutrophils # (Auto) 3.9 Lymphocytes # (Auto) 2.4 Monocytes # (Auto) 0.9 Eosinophils # (Auto) 0.1 Basophils # (Auto) 0.1 CBC Comment DIFF FINAL Differential Comment Hematology Comments Prothrombin Time 64.4 Prothromb Time International 5.4 Ratio Activated Partial 36.9 Thromboplast Time Sodium Level 140 Potassium Level 4.1 Chloride Level 104 Carbon Dioxide Level 26.4 Anion Gap 10 Blood Urea Nitrogen 3 Creatinine 0.92 Estimat Glomerular Filtration 62 Rate Random Glucose 111 Calcium Level 7.9 Total Bilirubin 0.6 Aspartate Amino Transf 13 (AST/SGOT) Alanine Aminotransferase LESS THAN 6 (ALT/SGPT) Alkaline Phosphatase 67 Total Protein 5.5 Albumin 1.8 Date/Time Procedure Status Source Growth 09/25/16 05:15 Aerobic Blood Culture - Preliminary Resulted Blood Peripheral NO GROWTH IN 1 DAY 09/25/16 05:15 Anaerobic Blood Culture - Preliminary Resulted Blood Peripheral NO GROWTH IN 1 DAY 09/24/16 21:39 Wound Culture - Preliminary Resulted Catheter Tip Central Venous Line NO GROWTH IN 24 HOURS. 09/24/16 19:30 Urine Culture - Final Complete Urine Clean Catch NO GROWTH IN 48 HOURS. Imaging Last Impressions Chest X-Ray 09/24/16 0000 Signed Impressions: Service Date/Time: Saturday, September 24, 2016 19:14 - CONCLUSION: Partial resolution of the left lower lobe consolidation. He Owen MD Abdomen/Pelvis CT 09/23/16 0000 Signed Impressions: Service Date/Time: Friday, September 23, 2016 15:49 - CONCLUSION: 1. Basically complete resolution of previously seen abscess with a few gas bubbles and mild haziness remaining the upper abdominal mesentery. 2. Slight anasarca and bilateral pleural effusions, left lung base consolidation. Whit Bullard MD Upper Extremity Ultrasound 09/18/16 0000 Signed Impressions: Service Date/Time: Sunday, September 18, 2016 13:11 - CONCLUSION: 1. Extensive deep venous thrombosis and superficial thrombosis left upper extremity. Pee Mcclure MD FACRADDENDUM: The above conclusion should read that there is deep venous thrombosis in the right upper extremity. Hemanth Tapia MD Lower Extremity Ultrasound 09/18/16 0000 Signed Impressions: Service Date/Time: Sunday, September 18, 2016 16:21 - CONCLUSION: Bilateral lower extremity deep venous thrombosis with nonocclusive thrombus within the right mid superficial femoral vein and right greater saphenous vein as well as left popliteal vein and occlusive DVT within the right posterior tibial and left peroneal veins. Nahun Bray MD Abscess Drainage CT 09/15/16 0000 Signed Impressions: Service Date/Time: Thursday, September 15, 2016 12:50 - CONCLUSION: Uncomplicated CT guided drainage, as above. Ady Jasmine MD Physical Exam HEENT: Normocephalic CHEST: CTA, diminished bases CARDIAC: RRR ABDOMEN: Soft, nondistended, mild epigastric tenderness; no hepatosplenomegaly ; bowel sounds x 4 quadrants, drain to the abd EXTREMITIES: BLE edema. SKIN: Normal; no rash; no jaundice. 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 (Marjan Doyle [facility]) Assessment and Plan Plan ASSESSMENT: - Upper GIB, Melena in patient with large perforated duodenal ulcer. Recent hospitalization EGD/Colonoscopy (08/26/16)------> Esophagus normal, Stomach: normal, Duodenum: large ulcerations in the distal bulb extending into the descending duodenum. Multiple possibly ischemic looking ulcers. Biopsies taken. Also could be crohns ulcers. Ileum normal, at 25cm. Rectum has appearance of ileal pouch. Two biopsies taken. Pathology focally ulcerated and necrotic small intestinal mucosal biopsies exhibiting features suggestive of ischemia, distorted small intestinal mucosal biopsies with acute inflammation, clinically J pouch biopsy. Abdomen/Pelvis CTA (08/26/16)-----> I see no evidence for mesenteric ischemia. Rpt EGD (08/31/16) --> copious cheesy material in mid to distal esophagus, biopsy taken possible luis, antral gastritis, and large deep ulcer in distal bulb at 12:00 position. Ulcer in descending duodenum appears improved, looks more like typical PUD now. Pathology revealed antral mucosa with mild active chronic gastritis, esophageal mucosa with acute esophagitis containing budding yeast and pseudohyphae in the superficial keratin layers, consistent with luis esophagitis. A GMS stain performed on block #2 is positive for these fungal organisms. She was treated with Protonix, Carafate, Diflucan, Canasa, and Xifaxan. Rpt. EGD (09/14/16)----> 1. Gastritis antrum-biopsy, esophagitis distal esophagus-biopsy, duodenitis second and third portion of duodenum ulcer clean base duodenal bulb-communication with a cavitary area -looks old-biopsy, no active bleeding 2. Retroflexed views revealed a hiatal hernia. Biopsies duodenal mucosa without significant histopathologic abnormality, acute duodenitis with foveolar metaplasia and reactive epithelial changes, minimal chronic gastritis, negative for H. Pylori, esophageal distal biopsy with gastric type mucosa with severe chronic focally acute inflammation negative for intestinal metaplasia, dysplasia, or malignancy. Rpt imaging (09/14) revealed perforation along the proximal duodenum with fluid collection of contrast and air measuring 9.1 x 2.5 cm. S/P Abscess Drainage CT (09/15/16)----> Uncomplicated CT guided drainage, as above. Rpt. Abdomen/Pelvis CT (09/23/16)----> 1. Basically complete resolution of previously seen abscess with a few gas bubbles and mild haziness remaining the upper abdominal mesentery. 2. Slight anasarca and bilateral pleural effusions, left lung base consolidation. GS has signed off. S/P Protonix with BID dosing. GI reconsulted for melena, drop in hgb. Pt reports dark tarry stools x 2 days. Her HH seems to be stable. She did have drop from 10.3--> 9.2 overnight, but other than the 10.3 yesterday, her hemoglobin has been ranging in the high 8- low 9 range. Will add carafate, cont. PPI. Get upper gi series with sbft to fu on duodenal perforation/ulcer. Cont. Flagyl, Diflucan - Severe anemia secondary to acute blood loss. S/P 5 units PRBC. 9.2/28.3. - Recent luis esophagitis. This was not seen on most recent endoscopy. Diflucan. PPI - Abnormal weight loss. 20 lb weight loss over 3 months. - Ulcerative colitis. Dx 2000. S/P Total Colectomy. - Leukocytosis/Fever/Lactic acid 2.7. IMPROVED. WBC 7.4. - CAROL. IMPROVED - DM, Depression/Anxiety, Hyperlipidemia PLAN: - JONELLE - Upper GI series/SBFT with gastrografin - Protonix Gtt - Add Carafate - Cont. Flagyl, Diflucan - Monitor HH - Transfuse as necessary - Supportive care - Further recommendations to follow based on results of above - Pt seen and examined by Dr. Gutierrez and myself and this note is written on her behalf (Marjan Doyle) Physician Comments seen, examined agree with above (pOal Gutierrez MD) Marjan Doyle Sep 26, 2016 13:20 Opal Gutierrez MD Sep 26, 2016 20:01
[2016-09-26] MEDS ORDERED: MAGNESIUM CITRATE SOLN 300 ML BTL PO SCH (14:00)
--- NOTE | 2016-09-26 14:55 | PD.ONC.PN ---
Subjective Subjective Remarks Afebrile overnight Pt in stretcher, ready to leave the floor for small bowel series Denies acute complaint Complains of being depressed over her health situation Objective Data Date Time Temp Pulse Resp B/P Pulse Ox O2 Delivery O2 Flow Rate FiO2 09/26/16 12:00 98.8 74 18 122/67 98 09/26/16 10:44 Room Air 09/26/16 08:00 99.6 66 18 118/55 97 09/26/16 08:00 68 09/26/16 04:00 98.1 79 20 113/57 99 09/26/16 00:00 98.5 67 18 119/71 98 09/25/16 21:30 98.4 87 18 105/57 98 09/25/16 20:00 Room Air 09/25/16 16:00 97.1 63 18 106/58 98 09/26/16 09/26/16 09/26/16 07:00 15:00 23:00 Intake Total 726 ml Balance 726 ml Result Diagram: 09/26/16 0503 09/26/16 0523 Laboratory Results Laboratory Tests Test 09/26/16 09/26/16 05:03 05:23 White Blood Count 7.4 TH/MM3 Red Blood Count 3.21 MIL/MM3 Hemoglobin 9.2 GM/DL Hematocrit 28.3 % Mean Corpuscular Volume 88.2 FL Mean Corpuscular Hemoglobin 28.5 PG Mean Corpuscular Hemoglobin 32.3 % Concent Red Cell Distribution Width 16.3 % Platelet Count 272 TH/MM3 Mean Platelet Volume 8.5 FL Neutrophils (%) (Auto) 52.0 % Lymphocytes (%) (Auto) 32.3 % Monocytes (%) (Auto) 12.4 % Eosinophils (%) (Auto) 1.8 % Basophils (%) (Auto) 1.5 % Neutrophils # (Auto) 3.9 TH/MM3 Lymphocytes # (Auto) 2.4 TH/MM3 Monocytes # (Auto) 0.9 TH/MM3 Eosinophils # (Auto) 0.1 TH/MM3 Basophils # (Auto) 0.1 TH/MM3 CBC Comment DIFF FINAL Differential Comment Hematology Comments Prothrombin Time 64.4 SEC Prothromb Time International 5.4 RATIO Ratio Activated Partial 36.9 SEC Thromboplast Time Sodium Level 140 MEQ/L Potassium Level 4.1 MEQ/L Chloride Level 104 MEQ/L Carbon Dioxide Level 26.4 MEQ/L Anion Gap 10 MEQ/L Blood Urea Nitrogen 3 MG/DL Creatinine 0.92 MG/DL Estimat Glomerular Filtration 62 ML/MIN Rate Random Glucose 111 MG/DL Calcium Level 7.9 MG/DL Total Bilirubin 0.6 MG/DL Aspartate Amino Transf 13 U/L (AST/SGOT) Alanine Aminotransferase LESS THAN 6 U/L (ALT/SGPT) Alkaline Phosphatase 67 U/L Total Protein 5.5 GM/DL Albumin 1.8 GM/DL Culture Results Microbiology Date/Time Procedure Status Source Growth 09/24/16 19:30 Urine Culture - Final Complete Urine Clean Catch NO GROWTH IN 48 HOURS. 09/24/16 20:28 Aerobic Blood Culture - Preliminary Resulted Blood Peripheral NO GROWTH IN 2 DAYS 09/24/16 20:28 Anaerobic Blood Culture - Preliminary Resulted Blood Peripheral NO GROWTH IN 2 DAYS 09/24/16 21:39 Wound Culture - Final Complete Catheter Tip Central Venous Line NO GROWTH IN 48 HOURS. 09/25/16 05:15 Aerobic Blood Culture - Preliminary Resulted Blood Peripheral NO GROWTH IN 1 DAY 09/25/16 05:15 Anaerobic Blood Culture - Preliminary Resulted Blood Peripheral NO GROWTH IN 1 DAY Administered Medications Medications (Trade) Dose Ordered Sig/Ani Route PRN Reason Start Time Stop Time Status Last Admin Dose Admin Sodium Chloride (NS Flush) 2 ml UNSCH PRN IV FLUSH FLUSH AFTER USING IV ACCESS 09/14/16 12:30 09/19/16 14:35 Sodium Chloride (NS Flush) 2 ml BID IV FLUSH 09/14/16 21:00 09/26/16 10:12 Ondansetron HCl (Zofran Inj) 4 mg Q6H PRN IV NAUSEA 09/14/16 12:45 09/19/16 14:35 Alprazolam (Xanax) 1 mg Q8H PRN PO ANXIETY 09/14/16 12:45 09/25/16 20:30 Fluoxetine HCl (PROzac) 20 mg DAILY PO 09/15/16 09:00 09/26/16 10:18 Morphine Sulfate (Morphine Inj) 4 mg Q3H PRN IV BREAKTHROUGH PAIN 09/14/16 22:30 09/25/16 13:55 Sodium Chloride 10 ml 10 ml BID IRRIGATION 09/15/16 21:00 09/25/16 21:00 Dextrose/Sodium Chloride (D5W-02/25 NS 1000 ml Inj) 1,000 ml @ 75 mls/hr [id number] IV 09/16/16 12:15 09/25/16 22:19 Polyethylene Glycol (Miralax) 17 gm BID PO 09/20/16 21:00 09/26/16 10:12 Oxycodone HCl 5 mg 5 mg Q3H PRN PO PAIN SCALE 5 TO 10 09/21/16 12:00 09/26/16 02:14 Piperacillin Sod/ Tazobactam Sod (Zosyn 3.375 Gm Premix) 50 ml @ 100 mls/hr Q6H IV 09/23/16 21:00 09/26/16 02:09 Fluconazole (Diflucan) 400 mg DAILY PO 09/25/16 09:00 09/26/16 10:18 Metronidazole (Flagyl) 500 mg Q8HR PO 09/24/16 22:00 09/26/16 14:28 Acetaminophen (Tylenol) 650 mg Q4H PRN PO FEVER 09/24/16 22:00 09/24/16 22:10 Objective Remarks GENERAL: Middle aged female supine in stretcher in room. SKIN: Warm and dry. No oozing from lines HEAD: Normocephalic. EYES: No injection or drainage. NECK: Supple, trachea midline. CARDIOVASCULAR: Regular rate and rhythm RESPIRATORY: Clear anteriorly. Breathing unlabored. GASTROINTESTINAL: Abdomen is obese, mildly tender, non-distended. EXTREMITIES: No cyanosis. Bilateral lower extremity edema MUSCULOSKELETAL: Adequate muscle tone. NEUROLOGICAL: Moving all extremities. Normal speech. Assessment/Plan Problem List: (1) DVT (deep venous thrombosis) Status: Acute Plan: --Coumadin on hold due to supratherapeutic INR (2) GI bleed Status: Acute Plan: --presented to the emergency room with two episodes of dark stool on . --CT ab/pelvis showed perforation of the proximal duodenum with fluid collection and contrast measuring 9.1 x 2.5 cm. Assessment 60y/o female with bilateral upper extremity and lower extremity deep vein thromboses + GI bleed from a duodenal ulcer. --presented to the emergency room with two episodes of dark stool on 2016. --CT ab/pelvis showed perforation of the proximal duodenum with fluid collection and contrast measuring 9.1 x 2.5 cm. Plan 1. Hold Coumadin until INR less than 3 2. She has not had any bleeding 3. Daily CBC and coags Problem Qualifiers (1) GI bleed: Qualified Code: K29.91 - Gastrointestinal hemorrhage associated with gastroduodenitis Veena Fowler Sep 26, 2016 14:55
[2016-09-26] MEDS: SUCRALFATE 1 GM/10 ML CUP PO SCH ×3 (16:00→22:38)
--- NOTE | 2016-09-26 17:08 | RADRPT ---
EXAM DATE/TIME: 09/26/2016 16:11 [place] COMPARISON: No previous studies available for comparison. INDICATIONS : Patient with history of bilateral extremity DVT in need of central line placement for access. MEDICAL HISTORY : Ulcerative colitis, Diabetes, IBS, HLD, DVT, Duodenal ulcer, GERD, MRSA SURGICAL HISTORY : Total colectomy, Tubal ligation, Dilitation of esophagus ENCOUNTER: Initial ACUITY: 2 weeks PAIN SCORE: 10/10 LOCATION: abdomen FLUORO TIME: 0.2 minutes IMAGE SERIES: 0 ACCESS: Right internal jugular vein DEVICE(S): 1.) 7 English triple lumen 20 cm Arrow central line PROCEDURE : 1. Ultrasound guided venipuncture. 2. Central line placement. The risks, benefits and alternatives to the procedure were explained and verbal and written consent w as obtained. The site was prepped in sterile fashion. Full sterile technique was used, including ca p, mask, sterile gloves and gown and a large sterile sheet. Hand hygiene and 2% chlorhexidine prep w as utilized per protocol for cutaneous antisepsis with appropriate dry time for site. The skin and s ubcutaneous tissues were infiltrated with local anesthetic solution. With ultrasound guidance a dermatotomy in the neck was created and subcutaneous dissection was perfor med. A micropuncture set was used to gain access and serial dilatation was performed to accept the c atheter as prescribed above. The catheter was fixed in place with suture and a sterile dressing was a pplied. The patient tolerated the procedure well and there were no complications. Chest radiograph is to be obtained to document position. CONCLUSION: Uncomplicated line placement as above. Ady Jasmine MD on September 26, 2016 at 17:06 Board Certified Radiologist. This report was verified electronically.
[2016-09-26] MEDS: BISACODYL EC 5 MG TABEC PO SCH ×2 (17:36→22:40)
--- NOTE | 2016-09-26 20:02 | HHI.IDPN ---
Subjective Subjective Remarks is a 60 y/o CF with PMHx of ulcerative colitis, diabetes, IBS presents with dark stools. Patient states that she started having several black stools. Patient reports she had diarrhea with black stools approximately 3 times since evening prior to admission. Patient also reports feeling of extreme weakness and fatigue. Patient denies any headache or dizziness. Patient reports being on prednisone for her ulcerative colitis flare and was on a taper. Patient reports pain in the epigastric region, he cannot quantify or describe the pain. Patient denies any nausea or vomiting denies any coughing up of blood. Denies any fresh blood in the stool. Patient does report decreased appetite. Patient has been followed by General Surgery. Since patient had a contained chronic perforated duodenal ulcer it was successfully drained by IR. IA IR drained abscess grew Hafnia, E.faecalis and yeast. Pt has been on Ceftriaxone IV , Flagyl IV, Diflucan IV. New fevers 100 plus since 09/23/2016. ID consulted for evaluation and Mment of Possible new infection ? HCAP. At the time of my evaluation, patient is on the floor just transferred to the floor today. She has fevers reports chills. Slightly tachycardic. BP appears to be in normal range for her. Pt is on steroids so may not manifest typical SIRS reaction. Denies any SOB, chest pain. Denies any increase in abdominal pain. Lines: Left IJ CL No PIVs Khan cath in place. Overnight events reviewed. No fever No rash No diarrhea Antibiotics Zosyn IV flagyl diflucan Lines Line sites with no e.o infection Past Medical History reviewed. Allergies: Coded Allergies: No Known Allergies (Verified , 08/23/16) Objective . Vital Signs Date Time Temp Pulse Resp B/P Pulse Ox O2 Delivery O2 Flow Rate FiO2 09/26/16 16:00 98.4 87 18 142/78 97 09/26/16 12:00 98.8 74 18 122/67 98 09/26/16 10:44 Room Air 09/26/16 08:00 99.6 66 18 118/55 97 09/26/16 08:00 68 09/26/16 04:00 98.1 79 20 113/57 99 09/26/16 00:00 98.5 67 18 119/71 98 09/25/16 21:30 98.4 87 18 105/57 98 09/25/16 20:00 Room Air 09/25/16 09/25/16 09/26/16 15:00 23:00 07:00 Intake Total 240 ml 655 ml 726 ml Balance 240 ml 655 ml 726 ml Intake Oral 240 ml 120 ml 240 ml IV Total 535 ml 486 ml # Voids 4 1 5 # Bowel Movements 3 3 . Laboratory Tests Test 09/25/16 09/26/16 05:15 05:03 White Blood Count 9.5 TH/MM3 7.4 TH/MM3 Red Blood Count 3.47 MIL/MM3 3.21 MIL/MM3 Hemoglobin 10.3 GM/DL 9.2 GM/DL Hematocrit 31.5 % 28.3 % Mean Corpuscular Volume 90.7 FL 88.2 FL Mean Corpuscular Hemoglobin 29.5 PG 28.5 PG Mean Corpuscular Hemoglobin 32.6 % 32.3 % Concent Red Cell Distribution Width 16.2 % 16.3 % Platelet Count 393 TH/MM3 272 TH/MM3 Mean Platelet Volume 8.1 FL 8.5 FL Neutrophils (%) (Auto) 70.1 % 52.0 % Lymphocytes (%) (Auto) 20.3 % 32.3 % Monocytes (%) (Auto) 8.4 % 12.4 % Eosinophils (%) (Auto) 0.2 % 1.8 % Basophils (%) (Auto) 1.0 % 1.5 % Neutrophils # (Auto) 6.7 TH/MM3 3.9 TH/MM3 Lymphocytes # (Auto) 1.9 TH/MM3 2.4 TH/MM3 Monocytes # (Auto) 0.8 TH/MM3 0.9 TH/MM3 Eosinophils # (Auto) 0.0 TH/MM3 0.1 TH/MM3 Basophils # (Auto) 0.1 TH/MM3 0.1 TH/MM3 CBC Comment DIFF FINAL DIFF FINAL Differential Comment Hematology Comments Laboratory Tests Test 09/24/16 09/25/16 09/26/16 20:28 05:15 05:23 Lactic Acid Level 1.5 mmol/L Sodium Level 137 MEQ/L 140 MEQ/L Potassium Level 3.7 MEQ/L 4.1 MEQ/L Chloride Level 102 MEQ/L 104 MEQ/L Carbon Dioxide Level 25.6 MEQ/L 26.4 MEQ/L Anion Gap 9 MEQ/L 10 MEQ/L Blood Urea Nitrogen 5 MG/DL 3 MG/DL Creatinine 0.98 MG/DL 0.92 MG/DL Estimat Glomerular Filtration 58 ML/MIN 62 ML/MIN Rate Random Glucose 124 MG/DL 111 MG/DL Calcium Level 8.5 MG/DL 7.9 MG/DL Albumin 2.0 GM/DL 1.8 GM/DL Total Bilirubin 0.6 MG/DL Aspartate Amino Transf 13 U/L (AST/SGOT) Alanine Aminotransferase LESS THAN 6 U/L (ALT/SGPT) Alkaline Phosphatase 67 U/L Total Protein 5.5 GM/DL Microbiology Date/Time Procedure Status Source Growth 09/24/16 19:30 Urine Culture - Final Complete Urine Clean Catch NO GROWTH IN 48 HOURS. 09/24/16 20:28 Aerobic Blood Culture - Preliminary Resulted Blood Peripheral NO GROWTH IN 2 DAYS 09/24/16 20:28 Anaerobic Blood Culture - Preliminary Resulted Blood Peripheral NO GROWTH IN 2 DAYS 09/24/16 21:39 Wound Culture - Final Complete Catheter Tip Central Venous Line NO GROWTH IN 48 HOURS. 09/25/16 05:15 Aerobic Blood Culture - Preliminary Resulted Blood Peripheral NO GROWTH IN 1 DAY 09/25/16 05:15 Anaerobic Blood Culture - Preliminary Resulted Blood Peripheral NO GROWTH IN 1 DAY Imaging Last Impressions Central Venous Line 09/26/16 0000 Signed Impressions: Service Date/Time: September 16:11 - CONCLUSION: Uncomplicated line placement as above. Ady Jasmine MD Chest X-Ray 09/24/16 0000 Signed Impressions: Service Date/Time: Saturday, September 24, 2016 19:14 - CONCLUSION: Partial resolution of the left lower lobe consolidation. He Owen MD Abdomen/Pelvis CT 09/23/16 0000 Signed Impressions: Service Date/Time: Friday, September 23, 2016 15:49 - CONCLUSION: 1. Basically complete resolution of previously seen abscess with a few gas bubbles and mild haziness remaining the upper abdominal mesentery. 2. Slight anasarca and bilateral pleural effusions, left lung base consolidation. Whit Bullard MD Upper Extremity Ultrasound 09/18/16 0000 Signed Impressions: Service Date/Time: Sunday, September 18, 2016 13:11 - CONCLUSION: 1. Extensive deep venous thrombosis and superficial thrombosis left upper extremity. Pee Mcclure MD FACRADDENDUM: The above conclusion should read that there is deep venous thrombosis in the right upper extremity. Hemanth Tapia MD Lower Extremity Ultrasound 09/18/16 0000 Signed Impressions: Service Date/Time: Sunday, September 18, 2016 16:21 - CONCLUSION: Bilateral lower extremity deep venous thrombosis with nonocclusive thrombus within the right mid superficial femoral vein and right greater saphenous vein as well as left popliteal vein and occlusive DVT within the right posterior tibial and left peroneal veins. Nahun Bray MD Abscess Drainage CT 09/15/16 0000 Signed Impressions: Service Date/Time: Thursday, September 15, 2016 12:50 - CONCLUSION: Uncomplicated CT guided drainage, as above. Ady Jasmine MD Physical Exam GENERAL: Obese, well-developed patient, in no apparent distress. SKIN: No rashes, ecchymoses or lesions. Cool and dry. HEAD: Atraumatic. Normocephalic. No temporal or scalp tenderness. EYES: Pupils equal round and reactive. Extraocular motions intact. No scleral icterus. No injection or drainage. ENT: Nose without bleeding, purulent drainage or septal hematoma. Throat without erythema, tonsillar hypertrophy or exudate. Uvula midline. Airway patent. NECK: Trachea midline. Supple, nontender, no meningeal signs. CARDIOVASCULAR: Regular rate and rhythm without murmurs. RESPIRATORY: Clear to auscultation. Breath sounds equal bilaterally. No wheezes , rales, or rhonchi. GASTROINTESTINAL: Obese, Abdomen soft, non-tender, nondistended. Prior drain site with no e.o infection. MUSCULOSKELETAL: Extremities without clubbing, cyanosis. 2-3 plus pedal edema. NEUROLOGICAL: Awake and alert. Grossly non focal Psych cooperative IV line sites with no e.o infection. Assessment & Plan Remarks Possible Sepsis on admission in an Immune compromised patient on steroids Contained perforated duodenal ulcer s/p IR guided drainage. Ulcerative Colitis was on steroids (ppt factor for ulcer) IBS New fevers ? New infection vs drug fever. Recs CXR reviewed by me. GLEN Zosyn IV Start Levaquin oral Continue Flagyl oral Continue Diflucan oral Above regimen for total of 2 weeks. Fevers could also be from multiple DVTs. Clinically improving. Cultures negative. Will sign off please call back if any change in clinical condition or questions. I will be OOT from 09/27/2016 to 10/03/2016. Other ID MDs covering for me. Evy York MD Sep 26, 2016 20:02
--- NOTE | 2016-09-26 20:12 | RADRPT ---
EXAM DATE/TIME: 09/26/2016 19:20 [place] COMPARISON: CHEST SINGLE AP, September 24, 2016, 19:14. INDICATIONS : Central line placement verification. MEDICAL HISTORY : Cardiovascular disease. Ulcers. Colilitis. SURGICAL HISTORY : Tubal ligation. Large intestine removed. Dilitation of esophagus. ENCOUNTER: Subsequent ACUITY: 2 weeks PAIN SCORE: 0/10 LOCATION: Bilateral chest FINDINGS: Right internal jugular catheter tip projects over the proximal superior vena cava. No evidence pneum othorax. The right lung is clear. Small area of scarring or infiltrate in lower lateral left lung s table from prior. Both hemidiaphragms well delineated. The heart is normal in size. CONCLUSION: Right central line catheter tip in proximal SVC. No evidence of pneumothorax. He Owen MD on September 26, 2016 at 20:09 Board Certified Radiologist. This report was verified electronically.
[2016-09-26] MEDS: LEVOFLOXACIN 500 MG TAB PO SCH (22:40)
[2016-09-26] MEDS: ONDANSETRON HCL 4 MG/2 ML VIAL IV PRN (22:47)
[2016-09-27] VITALS (11 sets, daily range): BP systolic 114–147; BP diastolic 58–74; PULSE 75–90; RESP 16–20; TEMP 98.2–99.3; O2SAT 93–100
[2016-09-27] MEDS: ALPRAZolam 1 MG TAB PO PRN ×2 (03:00→21:36)
[2016-09-27] MEDS: INSULIN ASPART SUPPLEMENTAL SCALE SQ SCH ×4 (07:00→21:00)
[2016-09-27] MEDS: SUCRALFATE 1 GM/10 ML CUP PO SCH ×4 (07:31→21:28)
[2016-09-27] MEDS: metroNIDAZOLE 500 MG TAB PO SCH ×3 (07:32→21:28)
[2016-09-27 08:58] LABS: PROTHROMBIN TIME - PATIENT 47.2 SEC (9.8-11.6)
[2016-09-27 08:59] LABS: APTT (PATIENT) 42.5 SEC (24.3-30.1)
[2016-09-27] MEDS: POLYETHYLENE GLYCOL 17 GM PKG PO SCH ×2 (09:00→21:28)
[2016-09-27] MEDS: SODIUM CHLORIDE 0.9% 10 ML VIAL IRRIGATION SCH ×2 (09:00→21:00)
[2016-09-27 09:04] LABS: AUTOMATED NEUTROPHIL # 2.8 TH/MM3 (1.8-7.7); BASOPHIL # 0.1 TH/MM3 (0-0.2); EOSINOPHIL # 0.1 TH/MM3 (0-0.4); EOSINOPHIL % 1.7 % (0.0-4.0); LYMPH % 40.2 % (9.0-44.0); LYMPHOCYTE # 2.6 TH/MM3 (1.0-4.8); MEAN CELL VOLUME 88.2 FL (80.0-100.0); MEAN CORPUSCULAR HEMOGLOBIN 29.9 PG (27.0-34.0); MEAN CORPUSCULAR HGB CONC 33.9 % (32.0-36.0); MONO % 12.9 % (0.0-8.0); NEUT % 44.2 % (16.0-70.0); PLATELET COUNT 256 TH/MM3 (150-450); RED BLOOD COUNT 2.95 MIL/MM3 (4.00-5.30); RED CELL DISTRIBUTION WIDTH 16.3 % (11.6-17.2); WHITE BLOOD COUNT 6.4 TH/MM3 (4.0-11.0)
[2016-09-27] MEDS: LEVOFLOXACIN 500 MG TAB PO SCH (09:14)
[2016-09-27] MEDS: FLUCONAZOLE 200 MG TAB PO SCH (09:14)
[2016-09-27] MEDS: FLUoxetine HCL 20 MG CAP PO SCH (09:14)
[2016-09-27] MEDS: SODIUM CHLORIDE 0.9% FLUSH 10 ML FLUSH IV FLUSH SCH ×2 (09:14→21:28)
[2016-09-27] MEDS: oxyCODONE HCL ORAL CONC 20 MG/ML SYRINGE PO PRN ×3 (09:16→21:36)
[2016-09-27 09:18] LABS: BICARBONATE 30.1 MEQ/L (21.0-32.0); POTASSIUM 3.2 MEQ/L (3.5-5.1)
[2016-09-27 09:22] LABS: HEMO FLAGS AUTO DIFF
[2016-09-27 09:30] LABS: CALCIUM-PROTEIN CORRECTED 8.3 MG/DL (8.5-10.1)
[2016-09-27 10:01] LABS: BANDS 3 % (0-6); EOSINOPHILS 3 % (0-4); NEUTROPHIL # MANUAL DIFF 3.5 TH/MM3 (1.8-7.7); POLYS (SEG NEUTROPHILS) 52 % (16-70); WBC DIFF SAMPLE 100
[2016-09-27 10:02] LABS: OVALOCYTES 1+ (NORMAL); PLATELET ESTIMATE SMEAR NORMAL (NORMAL); PLATELET MORPHOLOGY NORMAL (NORMAL); SMUDGE CELLS PRESENT PRESENT
[2016-09-27 10:03] LABS: ACANTHOCYTES OCC (NORMAL); KERATOCYTES OCC (NORMAL); SCAN/DIFF FINAL DIFF MANUAL
--- NOTE | 2016-09-27 12:42 | HHI.GIFU ---
Subjective Remarks Patient tearful. States she does not feel well and does not feel that she is improving. She had 3-4 loose stools overnight. She also is complaining of chills although she is not aware if she had a fever. According to the EMR she had a low-grade fever of 99.3. She is scheduled for an upper GI series/small bowel follow-through today (Marjan Doyle) Objective Vitals I&O Vital Signs Date Time Temp Pulse Resp B/P Pulse Ox O2 Delivery O2 Flow Rate FiO2 09/27/16 08:32 99.0 80 18 147/69 93 09/27/16 04:00 98.2 75 20 137/71 97 09/27/16 04:00 Room Air 09/27/16 00:00 99.3 86 20 116/69 95 09/27/16 00:00 Room Air 09/26/16 20:13 73 09/26/16 20:00 98.7 85 19 121/63 96 09/26/16 20:00 Room Air 09/26/16 16:00 98.4 87 18 142/78 97 I/O 09/26/16 09/26/16 09/26/16 09/27/16 09/27/16 09/27/16 07:00 15:00 23:00 07:00 15:00 23:00 Intake Total 726 ml 440 ml 278 ml 688 ml Balance 726 ml 440 ml 278 ml 688 ml Intake Oral 240 ml 240 ml 75 ml IV Total 486 ml 200 ml 203 ml 688 ml # Voids 5 4 4 # Bowel Movements 3 2 4 Laboratory Laboratory Tests Test 09/27/16 07:56 White Blood Count 6.4 Red Blood Count 2.95 Hemoglobin 8.8 Hematocrit 26.0 Mean Corpuscular Volume 88.2 Mean Corpuscular Hemoglobin 29.9 Mean Corpuscular Hemoglobin 33.9 Concent Red Cell Distribution Width 16.3 Platelet Count 256 Mean Platelet Volume 8.3 Neutrophils (%) (Auto) 44.2 Lymphocytes (%) (Auto) 40.2 Monocytes (%) (Auto) 12.9 Eosinophils (%) (Auto) 1.7 Basophils (%) (Auto) 1.0 Neutrophils # (Auto) 2.8 Lymphocytes # (Auto) 2.6 Monocytes # (Auto) 0.8 Eosinophils # (Auto) 0.1 Basophils # (Auto) 0.1 CBC Comment AUTO DIFF Differential Total Cells 100 Counted Neutrophils % (Manual) 52 Band Neutrophils % 3 Lymphocytes % 29 Monocytes % 13 Eosinophils % 3 Neutrophils # (Manual) 3.5 Differential Comment FINAL DIFF MANUAL Atypical Lymphocytes Smudge Cells PRESENT Platelet Estimate NORMAL Platelet Morphology Comment NORMAL Ovalocytes 1+ Acanthocytes OCC Keratocytes OCC Prothrombin Time 47.2 Prothromb Time International 4.0 Ratio Activated Partial 42.5 Thromboplast Time Sodium Level 140 Potassium Level 3.2 Chloride Level 104 Carbon Dioxide Level 30.1 Anion Gap 6 Blood Urea Nitrogen 4 Creatinine 0.87 Estimat Glomerular Filtration 66 Rate Random Glucose 128 Calcium Level 7.4 Protein Corrected Calcium 8.3 Total Protein 5.5 Date/Time Procedure Status Source Growth 09/25/16 05:15 Aerobic Blood Culture - Preliminary Resulted Blood Peripheral NO GROWTH IN 2 DAYS 09/25/16 05:15 Anaerobic Blood Culture - Preliminary Resulted Blood Peripheral NO GROWTH IN 2 DAYS 09/24/16 21:39 Wound Culture - Final Complete Catheter Tip Central Venous Line NO GROWTH IN 48 HOURS. 09/24/16 19:30 Urine Culture - Final Complete Urine Clean Catch NO GROWTH IN 48 HOURS. Imaging Last Impressions Chest X-Ray 09/26/16 0000 Signed Impressions: Service Date/Time: September 19:20 - CONCLUSION: Right central line catheter tip in proximal SVC. No evidence of pneumothorax. He Owen MD Central Venous Line 09/26/16 0000 Signed Impressions: Service Date/Time: September 16:11 - CONCLUSION: Uncomplicated line placement as above. Ady Jasmine MD Abdomen/Pelvis CT 09/23/16 0000 Signed Impressions: Service Date/Time: Friday, September 23, 2016 15:49 - CONCLUSION: 1. Basically complete resolution of previously seen abscess with a few gas bubbles and mild haziness remaining the upper abdominal mesentery. 2. Slight anasarca and bilateral pleural effusions, left lung base consolidation. Whit Bullard MD Upper Extremity Ultrasound 09/18/16 0000 Signed Impressions: Service Date/Time: Sunday, September 18, 2016 13:11 - CONCLUSION: 1. Extensive deep venous thrombosis and superficial thrombosis left upper extremity. Pee Mcclure MD FACRADDENDUM: The above conclusion should read that there is deep venous thrombosis in the right upper extremity. Hemanth Tapia MD Lower Extremity Ultrasound 09/18/16 0000 Signed Impressions: Service Date/Time: Sunday, September 18, 2016 16:21 - CONCLUSION: Bilateral lower extremity deep venous thrombosis with nonocclusive thrombus within the right mid superficial femoral vein and right greater saphenous vein as well as left popliteal vein and occlusive DVT within the right posterior tibial and left peroneal veins. Nahun Bray MD Abscess Drainage CT 09/15/16 0000 Signed Impressions: Service Date/Time: Thursday, September 15, 2016 12:50 - CONCLUSION: Uncomplicated CT guided drainage, as above. Ady Jasmine MD Physical Exam HEENT: Normocephalic CHEST: CTA, diminished bases CARDIAC: RRR ABDOMEN: Soft, nondistended, mild epigastric tenderness; no hepatosplenomegaly ; bowel sounds x 4 quadrants, EXTREMITIES: BLE edema. SKIN: Normal; no rash; no jaundice. APPLE CHECKER: No focal deficits; alert and oriented x 3. (Marjan Doyle [facility]) Assessment and Plan Plan ASSESSMENT: - Upper GIB, Melena in patient with large perforated duodenal ulcer. Recent hospitalization EGD/Colonoscopy (08/26/16)------> Esophagus normal, Stomach: normal, Duodenum: large ulcerations in the distal bulb extending into the descending duodenum. Multiple possibly ischemic looking ulcers. Biopsies taken. Also could be crohns ulcers. Ileum normal, at 25cm. Rectum has appearance of ileal pouch. Two biopsies taken. Pathology focally ulcerated and necrotic small intestinal mucosal biopsies exhibiting features suggestive of ischemia, distorted small intestinal mucosal biopsies with acute inflammation, clinically J pouch biopsy. Abdomen/Pelvis CTA (08/26/16)-----> I see no evidence for mesenteric ischemia. Rpt EGD (08/31/16) --> copious cheesy material in mid to distal esophagus, biopsy taken possible luis, antral gastritis, and large deep ulcer in distal bulb at 12:00 position. Ulcer in descending duodenum appears improved, looks more like typical PUD now. Pathology revealed antral mucosa with mild active chronic gastritis, esophageal mucosa with acute esophagitis containing budding yeast and pseudohyphae in the superficial keratin layers, consistent with luis esophagitis. A GMS stain performed on block #2 is positive for these fungal organisms. She was treated with Protonix, Carafate, Diflucan, Canasa, and Xifaxan. Rpt. EGD (09/14/16)----> 1. Gastritis antrum-biopsy, esophagitis distal esophagus-biopsy, duodenitis second and third portion of duodenum ulcer clean base duodenal bulb-communication with a cavitary area -looks old-biopsy, no active bleeding 2. Retroflexed views revealed a hiatal hernia. Biopsies duodenal mucosa without significant histopathologic abnormality, acute duodenitis with foveolar metaplasia and reactive epithelial changes, minimal chronic gastritis, negative for H. Pylori, esophageal distal biopsy with gastric type mucosa with severe chronic focally acute inflammation negative for intestinal metaplasia, dysplasia, or malignancy. Rpt imaging (09/14) revealed perforation along the proximal duodenum with fluid collection of contrast and air measuring 9.1 x 2.5 cm. S/P Abscess Drainage CT (09/15/16)----> Uncomplicated CT guided drainage, as above. Rpt. Abdomen/Pelvis CT (09/23/16)----> 1. Basically complete resolution of previously seen abscess with a few gas bubbles and mild haziness remaining the upper abdominal mesentery. 2. Slight anasarca and bilateral pleural effusions, left lung base consolidation. GS has signed off. S/P Protonix with BID dosing. GI reconsulted for melena, drop in hgb. Pt reports dark tarry stools x 3 days. She had 3-4 loose stools overnight. HH 8.8/26.0. Upper GI series/SBFT pending. Cont. Flagyl, Diflucan. Protonix/Carafate. - Severe anemia secondary to acute blood loss. S/P 5 units PRBC. HH 8.8/26.0. - Recent luis esophagitis. This was not seen on most recent endoscopy. Diflucan. PPI - Abnormal weight loss. 20 lb weight loss over 3 months. - Ulcerative colitis. Dx 1999. S/P Total Colectomy. - Leukocytosis/Fever/Lactic acid 2.7. She is c/o chills. Low grade fever overnight with T. Max 99.3. WBC 6.4. - CAROL. IMPROVED - DM, Depression/Anxiety, Hyperlipidemia PLAN: - JONELLE - Await results of Upper GI series/SBFT with gastrografin - Protonix Gtt - Carafate - Cont. Flagyl, Diflucan - Monitor HH - Transfuse as necessary - Supportive care - Further recommendations to follow based on results of above - Pt seen and examined by Dr. Gutierrez and myself and this note is written on her behalf (Marjan Doyle) Physician Comments seen, examined agree with above ugi series noted continue ppi, Carafate trial of Glucerna , gastroparesis diet trial of rifaximin 550 mg po bid-for possible bacterial overgrowth (Opal Gutierrez MD) Marjan Doyle Sep 27, 2016 12:42 Opal Gutierrez MD Sep 27, 2016 19:56
--- NOTE | 2016-09-27 13:13 | PD.ONC.PN ---
Subjective Subjective Remarks Afebrile overnight. Patient seen at 9AM, late entry. Patient upset. She had difficulty sleeping last night. She took a Bartolo-a-lax yesterday and was up all night with diarrhea. She is tired. Denies any bleeding. Objective Data Date Time Temp Pulse Resp B/P Pulse Ox O2 Delivery O2 Flow Rate FiO2 09/27/16 08:32 99.0 80 18 147/69 93 09/27/16 04:00 98.2 75 20 137/71 97 09/27/16 04:00 Room Air 09/27/16 00:00 99.3 86 20 116/69 95 09/27/16 00:00 Room Air 09/26/16 20:13 73 09/26/16 20:00 98.7 85 19 121/63 96 09/26/16 20:00 Room Air 09/26/16 16:00 98.4 87 18 142/78 97 09/27/16 09/27/16 09/27/16 06:59 14:59 22:59 Intake Total 688 ml Balance 688 ml Result Diagram: 09/27/16 0756 09/27/16 0756 Laboratory Results Laboratory Tests Test 09/27/16 07:56 White Blood Count 6.4 TH/MM3 Red Blood Count 2.95 MIL/MM3 Hemoglobin 8.8 GM/DL Hematocrit 26.0 % Mean Corpuscular Volume 88.2 FL Mean Corpuscular Hemoglobin 29.9 PG Mean Corpuscular Hemoglobin 33.9 % Concent Red Cell Distribution Width 16.3 % Platelet Count 256 TH/MM3 Mean Platelet Volume 8.3 FL Neutrophils (%) (Auto) 44.2 % Lymphocytes (%) (Auto) 40.2 % Monocytes (%) (Auto) 12.9 % Eosinophils (%) (Auto) 1.7 % Basophils (%) (Auto) 1.0 % Neutrophils # (Auto) 2.8 TH/MM3 Lymphocytes # (Auto) 2.6 TH/MM3 Monocytes # (Auto) 0.8 TH/MM3 Eosinophils # (Auto) 0.1 TH/MM3 Basophils # (Auto) 0.1 TH/MM3 CBC Comment AUTO DIFF Differential Total Cells 100 Counted Neutrophils % (Manual) 52 % Band Neutrophils % 3 % Lymphocytes % 29 % Monocytes % 13 % Eosinophils % 3 % Neutrophils # (Manual) 3.5 TH/MM3 Differential Comment FINAL DIFF MANUAL Atypical Lymphocytes % Smudge Cells PRESENT Platelet Estimate NORMAL Platelet Morphology Comment NORMAL Ovalocytes 1+ Acanthocytes OCC Keratocytes OCC Prothrombin Time 47.2 SEC Prothromb Time International 4.0 RATIO Ratio Activated Partial 42.5 SEC Thromboplast Time Sodium Level 140 MEQ/L Potassium Level 3.2 MEQ/L Chloride Level 104 MEQ/L Carbon Dioxide Level 30.1 MEQ/L Anion Gap 6 MEQ/L Blood Urea Nitrogen 4 MG/DL Creatinine 0.87 MG/DL Estimat Glomerular Filtration 66 ML/MIN Rate Random Glucose 128 MG/DL Calcium Level 7.4 MG/DL Protein Corrected Calcium 8.3 MG/DL Total Protein 5.5 GM/DL Culture Results Microbiology Date/Time Procedure Status Source Growth 09/24/16 19:30 Urine Culture - Final Complete Urine Clean Catch NO GROWTH IN 48 HOURS. 09/24/16 20:28 Aerobic Blood Culture - Preliminary Resulted Blood Peripheral NO GROWTH IN 3 DAYS 09/24/16 20:28 Anaerobic Blood Culture - Preliminary Resulted Blood Peripheral NO GROWTH IN 3 DAYS 09/24/16 21:39 Wound Culture - Final Complete Catheter Tip Central Venous Line NO GROWTH IN 48 HOURS. 09/25/16 05:15 Aerobic Blood Culture - Preliminary Resulted Blood Peripheral NO GROWTH IN 2 DAYS 09/25/16 05:15 Anaerobic Blood Culture - Preliminary Resulted Blood Peripheral NO GROWTH IN 2 DAYS Administered Medications Medications (Trade) Dose Ordered Sig/Ani Route PRN Reason Start Time Stop Time Status Last Admin Dose Admin Sodium Chloride (NS Flush) 2 ml UNSCH PRN IV FLUSH FLUSH AFTER USING IV ACCESS 09/14/16 12:30 09/19/16 14:35 Sodium Chloride (NS Flush) 2 ml BID IV FLUSH 09/14/16 21:00 09/27/16 09:14 Ondansetron HCl (Zofran Inj) 4 mg Q6H PRN IV NAUSEA 09/14/16 12:45 09/26/16 22:47 Alprazolam (Xanax) 1 mg Q8H PRN PO ANXIETY 09/14/16 12:45 09/27/16 03:00 Fluoxetine HCl (PROzac) 20 mg DAILY PO 09/15/16 09:00 09/27/16 09:14 Morphine Sulfate (Morphine Inj) 4 mg Q3H PRN IV BREAKTHROUGH PAIN 09/14/16 22:30 09/25/16 13:55 Sodium Chloride 10 ml 10 ml BID IRRIGATION 09/15/16 21:00 09/25/16 21:00 Dextrose/Sodium Chloride (D5W-02/25 NS 1000 ml Inj) 1,000 ml @ 75 mls/hr [id number] IV 09/16/16 12:15 09/26/16 22:47 Polyethylene Glycol (Miralax) 17 gm BID PO 09/20/16 21:00 09/26/16 22:38 Oxycodone HCl (Roxicodone Intensol Liq) 5 mg Q3H PRN PO PAIN SCALE 5 TO 10 09/21/16 12:00 09/27/16 09:16 Fluconazole (Diflucan) 400 mg DAILY PO 09/25/16 09:00 09/27/16 09:14 Metronidazole (Flagyl) 500 mg Q8HR PO 09/24/16 22:00 09/27/16 07:32 Acetaminophen (Tylenol) 650 mg Q4H PRN PO FEVER 09/24/16 22:00 09/24/16 22:10 Sucralfate (Carafate Liq) 1 gm ACHS PO 09/26/16 16:00 09/27/16 13:02 Bisacodyl (Dulcolax Ec) 10 mg 18,21 PO 09/26/16 18:00 09/26/16 22:40 Levofloxacin (Levaquin) 500 mg DAILY PO 09/26/16 20:00 09/27/16 09:14 Objective Remarks GENERAL: Middle aged female lying in bed, frustrated. SKIN: Warm and dry. HEAD: Normocephalic. EYES: No injection or drainage. NECK: Supple, trachea midline. CARDIOVASCULAR: Regular rate and rhythm RESPIRATORY: Breath sounds equal bilaterally. No accessory muscle use. GASTROINTESTINAL: Abdomen soft, mildly tender, non-distended. EXTREMITIES: No cyanosis MUSCULOSKELETAL: Adequate muscle tone. NEUROLOGICAL: awake and alert. normal speech. moving all extremities. Assessment/Plan Assessment 60y/o female with bilateral upper extremity and lower extremity deep vein thromboses + GI bleed from a duodenal ulcer. --presented to the emergency room with two episodes of dark stool on 2016. --CT ab/pelvis showed perforation of the proximal duodenum with fluid collection and contrast measuring 9.1 x 2.5 cm. Plan 1. check H&H in 12 hours. no obvious bleeding. may need to give a unit of blood if hemoglobin drops further 2. hold coumadin until INR less than 3.0. would not give reversal agent unless there is clinical bleeding. 3. Daily CBC and coags Talita Issa Sep 27, 2016 13:13
[2016-09-27] MEDS: DEXT 5%-NACL 0.45% 1000 ML INJ 1,000 ML IV SCH (15:11)
--- NOTE | 2016-09-27 15:32 | HHI.FPPN ---
Subjective Remarks Patient seen and examined this morning. Patient was tearful when speaking, and was upset that last night she woke up covered in her own feces. She states that she went to get her GI study last night, drank the contrast and went to sleep as soon as she returned to her room. It was explained to her that her diarrhea was most likely due to the contrast given earlier. She also complains that she does not feel as though she is getting better. Patient was reassured of her progress. States that her urination has been frequent, with limited micturition , no pain or change in color/smell. States that her abdominal pain has resolved. No complaints of Nausea, vomiting, fever, chills, chest pain, shortness of breath. Objective Vitals Vital Signs Date Time Temp Pulse Resp B/P Pulse Ox O2 Delivery O2 Flow Rate FiO2 09/27/16 12:05 98.7 86 18 119/58 100 09/27/16 09:00 75 09/27/16 08:32 99.0 80 18 147/69 93 09/27/16 08:00 Room Air 09/27/16 04:00 98.2 75 20 137/71 97 09/27/16 04:00 Room Air 09/27/16 00:00 99.3 86 20 116/69 95 09/27/16 00:00 Room Air 09/26/16 20:13 73 09/26/16 20:00 98.7 85 19 121/63 96 09/26/16 20:00 Room Air 09/26/16 16:00 98.4 87 18 142/78 97 I/O 09/26/16 09/26/16 09/26/16 09/27/16 09/27/16 09/27/16 07:00 15:00 23:00 07:00 15:00 23:00 Intake Total 726 ml 440 ml 278 ml 688 ml Balance 726 ml 440 ml 278 ml 688 ml Intake Oral 240 ml 240 ml 75 ml IV Total 486 ml 200 ml 203 ml 688 ml # Voids 5 4 4 # Bowel Movements 3 2 4 Result Diagram: 09/27/16 0756 09/27/16 0756 Imaging Last 48 hours Impressions Chest X-Ray 09/26/16 0000 Signed Impressions: Service Date/Time: September 19:20 - CONCLUSION: Right central line catheter tip in proximal SVC. No evidence of pneumothorax. eH Owen MD Central Venous Line 09/26/16 0000 Signed Impressions: Service Date/Time: September 16:11 - CONCLUSION: Uncomplicated line placement as above. Ady Jasmine MD Objective Remarks GENERAL: This is an elderly female lying in bed, tearful. SKIN: . Cool and dry. HEENT: Atraumatic. Normocephalic. Pupils equal round and reactive. Extraocular motions intact. No scleral icterus. No injection or drainage. Trachea midline. CARDIOVASCULAR: Regular rate and rhythm RESPIRATORY: Bibasilar crackles. Good air movement. No wheezes, rales, or rhonchi. GASTROINTESTINAL: Abdomen soft, mildly tender to palpation in all quadrants, improving. No guarding. Non-distended. No rebound. No masses appreciated. BS+. Bandage over right upper abdomen c/d/i. Minimal serous drainage. MUSCULOSKELETAL: Edema in upper and lower extremities, trace in upper extremities, 2+ in lower extremities. Mildly tender B/L. No erythema. No unilateral asymmetry. PT/DP pulses 2+ B/L NEUROLOGICAL: Awake and alert. Motor and sensory grossly within normal limits. Normal speech. Procedures Central Line placement 09/26/16 Medications and IVs Current Medications Medications (Trade) Dose Ordered Sig/Ani Route Start Time Stop Time Status Last Admin (NS Flush) 2 ml UNSCH PRN IV FLUSH 09/14/16 12:30 09/19/16 14:35 (NS Flush) 2 ml BID IV FLUSH 09/14/16 21:00 09/27/16 09:14 (Zofran Inj) 4 mg Q6H PRN IV 09/14/16 12:45 09/26/16 22:47 (Xanax) 1 mg Q8H PRN PO 09/14/16 12:45 09/27/16 03:00 (PROzac) 20 mg DAILY PO 09/15/16 09:00 09/27/16 09:14 (D50w (Vial) Inj) 50 ml UNSCH PRN IV 09/14/16 12:45 (Glucagon Inj) 1 mg UNSCH PRN OTHER 09/14/16 12:45 (Morphine Inj) 4 mg Q3H PRN IV 09/14/16 22:30 09/25/16 13:55 (Narcan Inj) 0.4 mg UNSCH PRN IV 09/14/16 22:30 Sodium Chloride 10 ml 10 ml BID IRRIGATION 09/15/16 21:00 09/25/16 21:00 (D5W-1 NS 1000 ml Inj) 1,000 ml @ 75 mls/hr [id number] IV 09/16/16 12:15 09/27/16 15:11 (Melatonin) 5 mg HS PRN PO 09/20/16 21:00 (Miralax) 17 gm BID PO 09/20/16 21:00 09/26/16 22:38 (Roxicodone Intensol Liq) 5 mg Q3H PRN PO 09/21/16 12:00 09/27/16 13:17 (Diflucan) 400 mg DAILY PO 09/25/16 09:00 09/27/16 09:14 (Flagyl) 500 mg Q8HR PO 09/24/16 22:00 09/27/16 13:17 Acetaminophen 650 mg 650 mg Q4H PRN PO 09/24/16 22:00 09/24/16 22:10 (Protonix Inj/NS Inj) 100 ml @ 10 mls/hr CONTINUOUS IV 09/26/16 15:00 (Carafate Liq) 1 gm ACHS PO 09/26/16 16:00 09/27/16 13:02 (Dulcolax Ec) 10 mg 18,21 PO 09/26/16 18:00 09/26/16 22:40 (Levaquin) 500 mg DAILY PO 09/26/16 20:00 09/27/16 09:14 A/P Assessment and Plan This is a 60-year-old female with history of ulcerative colitis and ulcers, presents with severe anemia found to have perforated ulcer and abscess formation. Gastroenterology and colorectal surgery consulted. IR drainage completed 09/15, uncomplicated. Abscess appears resolved on CT (09/23). Patient currently on Coumadin for upper and lower extremity DVTs. Central line placed 09/26/16 due to difficulty in obtaining PIV access as well as thrombi in upstream vessels causing immediate infiltration following successful PIV insertion. Discharge Planning Timeframe unclear. Discharge pending patient being able to tolerate a normal diet and abscess drain removal and further recs from hematology regarding upper and lower extremity DVTs. Problem List: (1) Diarrhea Status: Acute Plan: Pt with several episodes of liquid stool after treatment with multiple antibiotics. Patient states the diarrhea is as dark as when she first came in - C. Diff negative - F/U Hemoccult - F/U GI consult (2) Perforated duodenal ulcer Status: Acute Plan: CT scan 09/14 demonstrates a perforation of the duodenum with an abnormal fluid collection with contrast anterior to the mesenteric vasculature measuring 9.12.5 cm with adjacent stranding in the mesentery. There is no free perforation into the abdominal cavity. H&H has decrease Patient has been having regular bowel movements, nonbloody General surgery consulted, Dr. Cisneros signed off (09/26), appreciate recommendations -Diet regular. GI previously consulted, now signed off, reconsulting (09/26), appreciate recommendations and interventions -Continue MiraLAX -Continue Protonix -F/U H/H Infectious disease consulted, appreciate recommendations -Blood culture and Urine culture (09/24) no growth to date -Pt has been afebrile Medications: Zosyn 3.375 IV daily (09/15- ) Diflucan 400mg po daily (09/25- ) Metronidazole 500mg IV Q8hrs (09/14- ) Pain control: Roxycodone, IV morphine for breakthrough (3) Abscess Status: Acute Plan: CT scan 09/14 shows 9.12.5 cm fluid collection anterior to the mesenteric vasculature with adjacent stranding in the mesentery. IR drainage performed 09/[address] 09/23 "Basically complete resolution of previously seen abscess with a few gas bubbles and mild haziness remaining the upper abdominal mesentery." Drain has been removed. (4) GI bleed Status: Acute Plan: See plan for perforated lateral ulcer above Status post 4 units packed red blood cells (5) DVT (deep venous thrombosis) Status: Acute Plan: Patient found to have numerous DVTs of the upper and lower extremities. Hematology consulted, appreciate recommendations: -No absolute contraindication to anticoagulation - Heparin and Coumadin both held. Coumadin to be resumed once INR is less than 3.0. - INR 4.0 09/27/16 - Will resume coumadin when INR <3.0 Imaging: Lower extremity ultrasound 09/18: Bilateral lower extremity DVTs with nonocclusive thrombus within the right mid superficial femoral vein and right greater saphenous vein as well as left popliteal vein and occlusive DVT within the right posterior tibial and left peroneal veins. Upper extremity ultrasound 09/18: Extensive DVTs and superficial thrombus is of the left upper extremity. (6) Pleural effusion Status: Acute Plan: Bilateral pleural effusions with left lung consolidation on CT - ID consulted for antibiotic optimization, see above - Pulmonary toilet, Incentive spirometer (7) Hypoalbuminemia Status: Acute Plan: Albumin low at 2.0 on 09/25, improving. -Likely to improve as pts diet progresses -Will give Albumin 5% 12.5 gm IV x1 -Continue to monitor -Consider additional albumin as needed -Will check again tomorrow, following several days of regular diet (8) Depression with anxiety Status: Acute Plan: Tearful 09/27/16 * Consulted psychiatry * F/U consult * Continue fluoxetine 20 mg po daily * Xanax 1 mg Q8hrs prn anxiety (9) Diabetes Status: Acute Plan: History of chronic diabetes. On insulin at home. -Low dose sliding scale while inpatient, blood sugars have been well controlled. (10) FEN Status: Acute Plan: Fluids: D5 1/2 NS @ 100mls/hr, consider decreasing Electrolytes: Continue to monitor Nutrition: Regular diet DVT ppx: Coumadin to be resumed when INR is 3. GI ppx: Protonix 40 mg Q12hrs Problem Qualifiers (1) GI bleed: Qualified Code: K29.91 - Gastrointestinal hemorrhage associated with gastroduodenitis (2) Diabetes: Qualified Code: E11.9 - Type 2 diabetes mellitus without complication, with long-term current use of insulin Elliott Willingham MD R1 Sep 27, 2016 15:32
[2016-09-27] MEDS: BISACODYL EC 5 MG TABEC PO SCH ×2 (16:46→21:36)
--- NOTE | 2016-09-27 17:10 | RADRPT ---
EXAM DATE/TIME: 09/27/2016 09:42 COMPARISON: No previous studies available for comparison. INDICATIONS : Perforated duodenal ulcer. FLUORO TIME: 1.4 minutes IMAGE COUNT: 12 CONTRAST: 1. MD Brenner MEDICAL HISTORY : Diabetes mellitus type II. Gastroesophageal reflux disease. Hiatal hernia. colitis, IBS SURGICAL HISTORY : Tubal ligation. Total colectomy, hysterectom, ENCOUNTER: Initial ACUITY: 3 days PAIN SCORE: 5/10 LOCATION: abdomen FINDINGS: Sodium seen is the large ulcer in the second portion of the duodenum with edema. There is no obvious extravasation or leak. Distal small bowel is unremarkable. Gastric atony with poor peristalsis. O nce Gastrografin does into small bowel transit time is 3 hours. CONCLUSION: Large penetrating ulcer second portion of duodenum without extravasation. Delayed gastric emptying. Pee Mcclure MD FACR on September 27, 2016 at 17:06 Board Certified Radiologist. This report was verified electronically.
[2016-09-27 19:38] LABS: HEMATOCRIT 27.8 % (35.0-46.0); REVIEW FLAG FINAL
[2016-09-27] MEDS: RIFAXIMIN 550 MG TAB PO SCH (21:36)
[2016-09-28] VITALS (7 sets, daily range): BP systolic 114–141; BP diastolic 53–75; PULSE 85–100; RESP 16–20; TEMP 98.1–99.9; O2SAT 94–98
[2016-09-28] MEDS: DEXT 5%-NACL 0.45% 1000 ML INJ 1,000 ML IV SCH ×2 (03:04→16:59)
[2016-09-28] MEDS: SUCRALFATE 1 GM/10 ML CUP PO SCH ×4 (05:16→21:41)
[2016-09-28] MEDS: metroNIDAZOLE 500 MG TAB PO SCH ×3 (05:16→21:41)
[2016-09-28] MEDS: INSULIN ASPART SUPPLEMENTAL SCALE SQ SCH ×4 (06:25→21:00)
[2016-09-28 08:31] LABS: BICARBONATE 27.2 MEQ/L (21.0-32.0); POTASSIUM 4.2 MEQ/L (3.5-5.1)
[2016-09-28 08:52] LABS: AUTOMATED NEUTROPHIL # 4.9 TH/MM3 (1.8-7.7); BASOPHIL # 0.1 TH/MM3 (0-0.2); BASOPHIL % 1.1 % (0.0-2.0); EOSINOPHIL # 0.2 TH/MM3 (0-0.4); HEMATOCRIT 27.1 % (35.0-46.0); HEMO FLAGS AUTO DIFF; LYMPH % 26.5 % (9.0-44.0); LYMPHOCYTE # 2.2 TH/MM3 (1.0-4.8); MEAN CELL VOLUME 87.6 FL (80.0-100.0); MEAN CORPUSCULAR HEMOGLOBIN 29.2 PG (27.0-34.0); MEAN CORPUSCULAR HGB CONC 33.4 % (32.0-36.0); MONO % 9.4 % (0.0-8.0); PLATELET COUNT 189 TH/MM3 (150-450); RED CELL DISTRIBUTION WIDTH 16.2 % (11.6-17.2); WHITE BLOOD COUNT 8.1 TH/MM3 (4.0-11.0)
[2016-09-28 08:58] LABS: CALCIUM-PROTEIN CORRECTED 7.9 MG/DL (8.5-10.1)
[2016-09-28] MEDS: SODIUM CHLORIDE 0.9% 10 ML VIAL IRRIGATION SCH ×2 (09:00→21:00)
[2016-09-28] MEDS: SODIUM CHLORIDE 0.9% FLUSH 10 ML FLUSH IV FLUSH SCH ×2 (09:00→21:00)
--- NOTE | 2016-09-28 09:08 | PD.ONC.PN ---
Subjective Subjective Remarks Afebrile overnight. Central line came out last night. Patient otherwise much more calm today and without complaint. No obvious bleeding. Objective Data Date Time Temp Pulse Resp B/P Pulse Ox O2 Delivery O2 Flow Rate FiO2 09/28/16 04:50 99.0 85 16 114/53 98 09/27/16 23:40 98.4 90 16 114/58 98 09/27/16 22:36 20 09/27/16 20:50 99.2 82 16 129/74 94 09/27/16 20:50 Room Air 09/27/16 20:00 82 09/27/16 18:42 85 09/27/16 16:05 98.8 85 18 119/58 100 09/27/16 16:00 86 09/27/16 16:00 Room Air 09/27/16 12:05 98.7 86 18 119/58 100 09/27/16 12:00 Room Air 09/28/16 09/28/16 09/28/16 07:00 15:00 23:00 Intake Total 981 ml Output Total 350 ml Balance 631 ml Result Diagram: 09/28/16 0720 09/28/16 0720 Laboratory Results Laboratory Tests Test 09/27/16 09/28/16 19:16 07:20 Hemoglobin 8.9 GM/DL 9.1 GM/DL Hematocrit 27.8 % 27.1 % White Blood Count 8.1 TH/MM3 Red Blood Count 3.10 MIL/MM3 Mean Corpuscular Volume 87.6 FL Mean Corpuscular Hemoglobin 29.2 PG Mean Corpuscular Hemoglobin 33.4 % Concent Red Cell Distribution Width 16.2 % Platelet Count 189 TH/MM3 Mean Platelet Volume 8.9 FL Neutrophils (%) (Auto) 61.0 % Lymphocytes (%) (Auto) 26.5 % Monocytes (%) (Auto) 9.4 % Eosinophils (%) (Auto) 2.0 % Basophils (%) (Auto) 1.1 % Neutrophils # (Auto) 4.9 TH/MM3 Lymphocytes # (Auto) 2.2 TH/MM3 Monocytes # (Auto) 0.8 TH/MM3 Eosinophils # (Auto) 0.2 TH/MM3 Basophils # (Auto) 0.1 TH/MM3 CBC Comment AUTO DIFF Hematology Comments Sodium Level 139 MEQ/L Potassium Level 4.2 MEQ/L Chloride Level 105 MEQ/L Carbon Dioxide Level 27.2 MEQ/L Anion Gap 7 MEQ/L Blood Urea Nitrogen 3 MG/DL Creatinine 0.82 MG/DL Estimat Glomerular Filtration 71 ML/MIN Rate Random Glucose 100 MG/DL Calcium Level 7.2 MG/DL Protein Corrected Calcium 7.9 MG/DL Total Protein 5.8 GM/DL Administered Medications Medications (Trade) Dose Ordered Sig/Ani Route PRN Reason Start Time Stop Time Status Last Admin Dose Admin Sodium Chloride (NS Flush) 2 ml UNSCH PRN IV FLUSH FLUSH AFTER USING IV ACCESS 09/14/16 12:30 09/19/16 14:35 Sodium Chloride (NS Flush) 2 ml BID IV FLUSH 09/14/16 21:00 09/27/16 21:28 Ondansetron HCl (Zofran Inj) 4 mg Q6H PRN IV NAUSEA 09/14/16 12:45 09/26/16 22:47 Alprazolam (Xanax) 1 mg Q8H PRN PO ANXIETY 09/14/16 12:45 09/27/16 21:36 Fluoxetine HCl (PROzac) 20 mg DAILY PO 09/15/16 09:00 09/27/16 09:14 Morphine Sulfate (Morphine Inj) 4 mg Q3H PRN IV BREAKTHROUGH PAIN 09/14/16 22:30 09/25/16 13:55 Sodium Chloride 10 ml 10 ml BID IRRIGATION 09/15/16 21:00 09/27/16 21:00 Dextrose/Sodium Chloride (D5W-1/2 NS 1000 ml Inj) 1,000 ml @ 75 mls/hr [id number] IV 09/16/16 12:15 09/28/16 03:04 Polyethylene Glycol (Miralax) 17 gm BID PO 09/20/16 21:00 09/27/16 21:28 Oxycodone HCl (Roxicodone Intensol Liq) 5 mg Q3H PRN PO PAIN SCALE 5 TO 10 09/21/16 12:00 09/27/16 21:36 Fluconazole (Diflucan) 400 mg DAILY PO 09/25/16 09:00 09/27/16 09:14 Metronidazole (Flagyl) 500 mg Q8HR PO 09/24/16 22:00 09/28/16 05:16 Acetaminophen (Tylenol) 650 mg Q4H PRN PO FEVER 09/24/16 22:00 09/24/16 22:10 Sucralfate (Carafate Liq) 1 gm ACHS PO 09/26/16 16:00 09/28/16 05:16 Bisacodyl (Dulcolax Ec) 10 mg 18,21 PO 09/26/16 18:00 09/27/16 21:36 Levofloxacin (Levaquin) 500 mg DAILY PO 09/26/16 20:00 09/27/16 09:14 Rifaximin (Xifaxan) 550 mg BID PO 09/27/16 21:00 09/27/16 21:36 Objective Remarks GENERAL: Middle aged female [facility] SKIN: Warm and dry. central line partially out, right IJ HEAD: Normocephalic. EYES: No injection or drainage. NECK: Supple, trachea midline. CARDIOVASCULAR: Regular rate and rhythm RESPIRATORY: Breath sounds equal bilaterally. No accessory muscle use. GASTROINTESTINAL: Abdomen soft, mildly tender, non-distended. EXTREMITIES: No cyanosis NEUROLOGICAL: aox3. normal speech Assessment/Plan Problem List: (1) DVT (deep venous thrombosis) Status: Acute Plan: --resume coumadin at 3mg PO daily (2) GI bleed Status: Acute Plan: --presented to the emergency room with two episodes of dark stool on . --CT ab/pelvis showed perforation of the proximal duodenum with fluid collection and contrast measuring 9.1 x 2.5 cm. Assessment 60y/o female with bilateral upper extremity and lower extremity deep vein thromboses + GI bleed from a duodenal ulcer. --presented to the emergency room with two episodes of dark stool on 2016. --CT ab/pelvis showed perforation of the proximal duodenum with fluid collection and contrast measuring 9.1 x 2.5 cm. Plan 1. INR 2.7. resume coumadin at 3mg PO daily 2. monitor CBC Attending Statement The exam, history, and the medical decision-making described in the above note were completed with the assistance of the mid-level provider. I reviewed and agree with the findings presented. I attest that I had a [id number] encounter with the patient on the same day, and personally performed and documented my assessment and findings in the medical record. No bleeding. No CP/SOB. INR now therapeutic. Resume coumadin. Problem Qualifiers (1) GI bleed: Qualified Code: K29.91 - Gastrointestinal hemorrhage associated with gastroduodenitis Talita Issa Sep 28, 2016 09:08 Niko Khan MD Sep 28, 2016 13:00
[2016-09-28] MEDS: RIFAXIMIN 550 MG TAB PO SCH ×2 (09:23→21:41)
[2016-09-28] MEDS: FLUCONAZOLE 200 MG TAB PO SCH (09:24)
[2016-09-28] MEDS: FLUoxetine HCL 20 MG CAP PO SCH (09:24)
[2016-09-28] MEDS: LEVOFLOXACIN 500 MG TAB PO SCH (09:24)
[2016-09-28] MEDS: POLYETHYLENE GLYCOL 17 GM PKG PO SCH ×2 (09:26→21:00)
[2016-09-28 09:31] LABS: APTT (PATIENT) 35.8 SEC (24.3-30.1)
[2016-09-28 09:32] LABS: INTERNATIONAL NORMALIZED RATIO 2.7 RATIO; PROTHROMBIN TIME - PATIENT 30.6 SEC (9.8-11.6)
[2016-09-28] MEDS: ALPRAZolam 1 MG TAB PO PRN ×2 (09:44→21:41)
[2016-09-28 10:52] LABS: SCAN/DIFF AUTO DIFF CONFIRMED
--- NOTE | 2016-09-28 11:30 | RADRPT ---
EXAM DATE/TIME: 09/28/2016 11:09 [facility] COMPARISON: CHEST SINGLE AP, September 26, 2016, 19:20. INDICATIONS : Shortness of breath MEDICAL HISTORY : Cardiovascular disease. Ulcers. Colilitis SURGICAL HISTORY : Tubal ligation. Large intestine removed. Dilitation of esophagus. ENCOUNTER: Initial ACUITY: 1 day PAIN SCORE: 0/10 LOCATION: Bilateral chest FINDINGS: Portable AP view of the chest demonstrates a normal-sized cardiac silhouette. No effusion, consolidat ion, or pneumothorax is visualized. The bones and soft tissues demonstrate no acute abnormality. Lung s are mildly underinflated with atelectasis at the lung bases. CONCLUSION: No acute cardiopulmonary abnormality is identified. Angel Perez MD on September 28, 2016 at 11:28 Board Certified Radiologist. This report was verified electronically.
--- NOTE | 2016-09-28 11:34 | HHI.FPPN ---
Subjective Remarks Patient seen and examined this morning. Patient was excited to see us. When asking about her drastic change in mood she stated that she has "good days and depressive days" and today was one of the good. She states that she is feeling much better, mentally and physically. She has little pain in her abdomen, just some remaining where "they did something." No diarrhea since yesterday night following he upper GI study. She has not passed stool since early yesterday. She reports her last stool was still dark, but slightly policy analyst than before at this point. No other complaints of nausea, vomiting, fever, chills, chest pain, shortness of breath, abdominal pain, change in urinary habits. Objective Vitals Vital Signs Date Time Temp Pulse Resp B/P Pulse Ox O2 Delivery O2 Flow Rate FiO2 09/28/16 08:04 99.9 89 20 121/75 96 09/28/16 04:50 99.0 85 16 114/53 98 09/27/16 23:40 98.4 90 16 114/58 98 09/27/16 22:36 20 09/27/16 20:50 99.2 82 16 129/74 94 09/27/16 20:50 Room Air 09/27/16 20:00 82 09/27/16 18:42 85 09/27/16 16:05 98.8 85 18 119/58 100 09/27/16 16:00 86 09/27/16 16:00 Room Air 09/27/16 12:05 98.7 86 18 119/58 100 09/27/16 12:00 Room Air I/O 09/27/16 09/27/16 09/27/16 09/28/16 09/28/16 09/28/16 07:00 15:00 23:00 07:00 15:00 23:00 Intake Total 688 ml 0 ml 341 ml 981 ml Output Total 200 ml 350 ml Balance 688 ml 0 ml 141 ml 631 ml Intake Oral 0 ml 240 ml 0 ml IV Total 688 ml 101 ml 981 ml Output Urine Total 200 ml 350 ml # Voids 4 4 # Bowel Movements 4 3 0 0 Result Diagram: 09/28/1620 09/28/16719 Objective Remarks GENERAL: This is an elderly female lying in bed, pleasant SKIN: . Cool and dry. HEENT: Atraumatic. Normocephalic. Pupils equal round and reactive. Extraocular motions intact. No scleral icterus. No injection or drainage. Trachea midline. CARDIOVASCULAR: Regular rate and rhythm, normal S1/2 no M/R/G RESPIRATORY: Clear to auscultation. Good air movement. No wheezes, rales, or rhonchi. GASTROINTESTINAL: Abdomen soft, mildly tender to palpation in all quadrants, improving. No guarding. Non-distended. No rebound. No masses appreciated. BS+. Bandage over right upper abdomen c/d/i. Minimal serous drainage. MUSCULOSKELETAL: Edema in upper and lower extremities, trace in upper extremities, 2+ in lower extremities. Mildly tender B/L. No erythema. No unilateral asymmetry. PT/DP pulses 2+ B/L NEUROLOGICAL: Awake and alert. Motor and sensory grossly within normal limits. Normal speech. Procedures Central Line placement 09/26/16 Medications and IVs Current Medications Medications (Trade) Dose Ordered Sig/Ani Route Start Time Stop Time Status Last Admin (NS Flush) 2 ml UNSCH PRN IV FLUSH 09/14/16 12:30 09/19/16 14:35 (NS Flush) 2 ml BID IV FLUSH 09/14/16 21:00 09/27/16 21:28 (Zofran Inj) 4 mg Q6H PRN IV 09/14/16 12:45 09/26/16 22:47 (Xanax) 1 mg Q8H PRN PO 09/14/16 12:45 09/28/16 09:44 (PROzac) 20 mg DAILY PO 09/15/16 09:00 09/28/16 09:24 (D50w (Vial) Inj) 50 ml UNSCH PRN IV 09/14/16 12:45 (Glucagon Inj) 1 mg UNSCH PRN OTHER 09/14/16 12:45 (Morphine Inj) 4 mg Q3H PRN IV 09/14/16 22:30 09/25/16 13:55 (Narcan Inj) 0.4 mg UNSCH PRN IV 09/14/16 22:30 Sodium Chloride 10 ml 10 ml BID IRRIGATION 09/15/16 21:00 09/27/16 21:00 (D5W-1/2 NS 1000 ml Inj) 1,000 ml @ 75 mls/hr [id number] IV 09/16/16 12:15 09/28/16 03:04 (Melatonin) 5 mg HS PRN PO 09/20/16 21:00 (Miralax) 17 gm BID PO 09/20/16 21:00 09/28/16 09:26 (Roxicodone Intensol Liq) 5 mg Q3H PRN PO 09/21/16 12:00 09/27/16 21:36 (Diflucan) 400 mg DAILY PO 09/25/16 09:00 09/28/16 09:24 (Flagyl) 500 mg Q8HR PO 09/24/16 22:00 09/28/16 05:16 Acetaminophen 650 mg 650 mg Q4H PRN PO 09/24/16 22:00 09/24/16 22:10 (Protonix Inj/NS Inj) 100 ml @ 10 mls/hr CONTINUOUS IV 09/26/16 15:00 (Carafate Liq) 1 gm ACHS PO 09/26/16 16:00 09/28/16 05:16 (Dulcolax Ec) 10 mg 18,21 PO 09/26/16 18:00 09/27/16 21:36 (Levaquin) 500 mg DAILY PO 09/26/16 20:00 09/28/16 09:24 (Xifaxan) 550 mg BID PO 09/27/16 21:00 09/28/16 09:23 A/P Assessment and Plan This is a 60-year-old female with history of ulcerative colitis and ulcers, presents with severe anemia found to have perforated ulcer and abscess formation. Gastroenterology and colorectal surgery consulted. IR drainage completed 09/15, uncomplicated. Abscess appears resolved on CT (09/23). Patient currently on Coumadin for upper and lower extremity DVTs. Central line placed 09/26/16 due to difficulty in obtaining PIV access as well as thrombi in upstream vessels causing immediate infiltration following successful PIV insertion. Discharge Planning Timeframe unclear. Discharge pending GI bleed resolution, H/H stabilization, PT evaluation, discharge planning from consultants. Problem List: (1) Diarrhea Status: Acute Plan: Pt with several episodes of liquid stool after treatment with multiple antibiotics. Patient states the diarrhea is dark, but lightening at this point - C. Diff negative - Trend H/H, transfuse as needed - F/U GI recommendations (2) Perforated duodenal ulcer Status: Acute Plan: CT scan 09/14 demonstrates a perforation of the duodenum with an abnormal fluid collection with contrast anterior to the mesenteric vasculature measuring 9.12.5 cm with adjacent stranding in the mesentery. There is no free perforation into the abdominal cavity. H&H stabilizing Patient has been having bowel movements, dark General surgery consulted, Dr. Cisneros signed off (09/26), appreciate recommendations -Diet regular. GI reconsulted (09/26), appreciate recommendations and interventions -Continue MiraLAX -Continue Protonix -Trend H/H Infectious disease consulted, appreciate recommendations -Blood culture and Urine culture (09/24) no growth to date -Pt has been afebrile Medications: Zosyn 3.375 IV daily (09/15- ) Diflucan 400mg po daily (09/25- ) Metronidazole 500mg IV Q8hrs (09/14- ) Pain control: Roxycodone, IV morphine for breakthrough (3) Abscess Status: Acute Plan: CT scan 09/14 shows 9.12.5 cm fluid collection anterior to the mesenteric vasculature with adjacent stranding in the mesentery. IR drainage performed 09/[address] 09/23 "Basically complete resolution of previously seen abscess with a few gas bubbles and mild haziness remaining the upper abdominal mesentery." Drain has been removed. (4) GI bleed Status: Acute Plan: See plan for perforated lateral ulcer above Status post 4 units packed red blood cells (5) DVT (deep venous thrombosis) Status: Acute Plan: Patient found to have numerous DVTs of the upper and lower extremities. Hematology consulted, appreciate recommendations: -No absolute contraindication to anticoagulation - Heparin and Coumadin both held. Coumadin to be resumed once INR is less than 3.0. - INR 2.7 09/28/16 - Hematology resume coumadin when INR <3.0 Imaging: Lower extremity ultrasound 09/18: Bilateral lower extremity DVTs with nonocclusive thrombus within the right mid superficial femoral vein and right greater saphenous vein as well as left popliteal vein and occlusive DVT within the right posterior tibial and left peroneal veins. Upper extremity ultrasound 09/18: Extensive DVTs and superficial thrombus is of the left upper extremity. (6) Pleural effusion Status: Acute Plan: Bilateral pleural effusions with left lung consolidation on CT - ID consulted for antibiotic optimization, see above - Pulmonary toilet, Incentive spirometer (7) Hypoalbuminemia Status: Acute Plan: Albumin low at 2.0 on 09/25, improving. -Likely to improve as pts diet progresses -Will give Albumin 5% 12.5 gm IV x1 -Continue to monitor -Consider additional albumin as needed -Will check again tomorrow, following several days of regular diet (8) Depression with anxiety Status: Acute Plan: Tearful 09/27/16, Improved 09/28/16 * Consulted psychiatry * F/U consult * Continue fluoxetine 20 mg po daily * Xanax 1 mg Q8hrs prn anxiety (9) Diabetes Status: Acute Plan: History of chronic diabetes. On insulin at home. -Low dose sliding scale while inpatient, blood sugars have been well controlled. (10) FEN Status: Acute Plan: Fluids: D5 1/2 NS @ 100mls/hr, consider decreasing Electrolytes: Continue to monitor Nutrition: Regular diet DVT ppx: Coumadin to be resumed when INR is 3. GI ppx: Protonix 40 mg Q12hrs Addendum Remarks Alerted by the patient's nurse this morning that the central line had been partially pulled out over night. Chest Xray was ordered to view placement. As reported by nursing, the central line had entirely come out prior to the Xray. IV access necessary at this point as patient is recovering from a reoccurring GI bleed and may need to be transfused in the near future. Consulted vascular access for a PICC line as PIV has continued to be difficult with the patients numerous thrombi. Will consider central line replacement if PICC is unsuccessful. Problem Qualifiers (1) GI bleed: Qualified Code: K29.91 - Gastrointestinal hemorrhage associated with gastroduodenitis (2) Diabetes: Qualified Code: E11.9 - Type 2 diabetes mellitus without complication, with long-term current use of insulin Elliott Willingham MD R1 Sep 28, 2016 11:34
--- NOTE | 2016-09-28 13:40 | PD.PSY.CON ---
Provisional Diagnosis Admission Date Sep 14, 2016 at 12:05 [place] I. 1. Adjustment disorder with mixed depression and anxiety [place] II. Deferred History of Present Illness Service Psychiatry Consult Requested By Dr. Willingham Reason for Consult Tearful when interviewed. Complaints of increased depression and anxiety. Primary Care Physician Siena Naidu MD [facility] Ms. Lester is a 60-year-old female with a reported history of depression who is presently admitted to the medical floor for management of perforated duodenal ulcer. She also has a history of DVT. The patient has been hospitalized most recently since the end of August of this year. Reviewing the electronic medical record, I note that the patient was seen by Dr. Iniguez during a recent hospitalization on 08/25. He started the patient on Prozac at that time. Patient seen and examined. Chart reviewed. On my examination today, the patient presents as somewhat depressed and tearful. She complains of low energy and poor concentration. Sleep and appetite are somewhat poor. She remains future oriented and hopeful though. She denies suicidal ideation, intent or plan. Moderate degree of generalized anxiety. No hypomanic or manic symptoms. Denies audiovisual hallucinations. No delusions elicited. The remainder of the psychiatric ROS is negative. Past psychiatric history: Reports a history of depression. Not currently under the care of a psychiatrist. Denies a history of psychiatric admissions or suicide attempts. She reports that she has been on Prozac in the past up to a dose of 60 mg daily although she did not find it particularly efficacious. She has also been on Zoloft. She says that Xanax works the best for controlling her anxiety. Family history: Patient denies any family history of mental illness. Chemical dependency history: The patient denies any abuse of drugs or alcohol. Social history: The patient reports that [place] She has resided there for 10 years. She has a boyfriend. She has a daughter and a granddaughter and is expecting a grandson soon. She has 2 years of college. 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 She denies any history. Denies any history of trauma. She is a [place]. No reported access to guns or firearms. Review of Systems Except as stated in HPI: all other systems reviewed are Neg Past Family Social History Coded Allergies: No Known Allergies (Verified , 08/23/16) Past Medical History See electronic medical record Active Scripts Insulin Detemir Inj (Levemir Flextouch Pen Inj)300 unit/3 ML Pen1 Units SQ DIRECTED #1 PEN Ref 2 Take 13 units in the morning before breakfast. Take 9 units at bedtime. Prov:Jadyn Weiss MD R2 09/05/16 Sennosides-Docusate Sodium (Sarah-Colace)8.6-50 Mg Tab1 Tab PO BID PRN ( Constipation) #60 TAB Ref 0 Prov:Radna Lao MD R1 09/04/16 Prednisone 5 Mg Tab5 Mg PO BID #21 TAB Ref 0 Take 2 tabs daily for 7 days, then take 1 tab daily for 7 days. Prov:Randa Lao MD R1 09/04/16 Sucralfate Liq (Carafate Liq)1 Gm/10 Ml Susp1 Gm PO ACHS #1200 ML Ref 0 on empty stomach Prov:Randa Lao MD R1 09/04/16 Rifaximin (Xifaxan)550 Mg [id number] Mg PO BID #60 TAB Prov:Randa Lao MD R1 09/04/16 Pantoprazole 40 Mg Tab40 Mg PO Q12HR #60 TAB Prov:Randa Lao MD R1 09/04/16 Fluoxetine 20 Mg [id number] Mg PO DAILY #30 CAP Prov:Randa Lao MD R1 09/04/16 Insulin Human Regular Inj (Humulin R Inj)1,000 Unit/10 Ml Vial2 Units SQ TIDAC PRN (Blood Sugar Management) #10 ML Ref 0 IMPORTANT TO EAT A MEAL WITHIN 30-60 MINUTES OF DOSING Prov:Randa Lao MD R1 09/04/16 Fluconazole 200 Mg [id number] Mg PO DAILY #30 TAB Ref 0 Prov:Randa Lao MD R1 09/04/16 Alprazolam 1 Mg Tab1 Mg PO Q8H PRN (ANXIETY) #30 TAB Ref 0 Prov:Jadyn Weiss MD R2 09/04/16 Hydrocodone-Acetaminophen 10-325 mg Tab1 Tab PO Q4H PRN (PAIN 6-10) #30 TAB Prov:Jadyn Weiss MD R2 09/04/16 Current Medications Medications (Trade) Dose Ordered Sig/Ani Route Start Time Stop Time Status Last Admin (NS Flush) 2 ml UNSCH PRN IV FLUSH 09/14/16 12:30 09/19/16 14:35 (NS Flush) 2 ml BID IV FLUSH 09/14/16 21:00 09/27/16 21:28 (Zofran Inj) 4 mg Q6H PRN IV 09/14/16 12:45 09/26/16 22:47 (Xanax) 1 mg Q8H PRN PO 09/14/16 12:45 09/28/16 09:44 (PROzac) 20 mg DAILY PO 09/15/16 09:00 09/28/16 09:24 (D50w (Vial) Inj) 50 ml UNSCH PRN IV 09/14/16 12:45 (Glucagon Inj) 1 mg UNSCH PRN OTHER 09/14/16 12:45 (Morphine Inj) 4 mg Q3H PRN IV 09/14/16 22:30 09/25/16 13:55 (Narcan Inj) 0.4 mg UNSCH PRN IV 09/14/16 22:30 Sodium Chloride 10 ml 10 ml BID IRRIGATION 09/15/16 21:00 09/27/16 21:00 (D5W-02/25 NS 1000 ml Inj) 1,000 ml @ 75 mls/hr [id number] IV 09/16/16 12:15 09/28/16 03:04 (Melatonin) 5 mg HS PRN PO 09/20/16 21:00 (Miralax) 17 gm BID PO 09/20/16 21:00 09/28/16 09:26 (Roxicodone Intensol Liq) 5 mg Q3H PRN PO 09/21/16 12:00 09/27/16 21:36 (Diflucan) 400 mg DAILY PO 09/25/16 09:00 09/28/16 09:24 (Flagyl) 500 mg Q8HR PO 09/24/16 22:00 09/28/16 05:16 Acetaminophen 650 mg 650 mg Q4H PRN PO 09/24/16 22:00 09/24/16 22:10 (Protonix Inj/NS Inj) 100 ml @ 10 mls/hr CONTINUOUS IV 09/26/16 15:00 (Carafate Liq) 1 gm ACHS PO 09/26/16 16:00 09/28/16 11:44 (Dulcolax Ec) 10 mg 18,21 PO 09/26/16 18:00 09/27/16 21:36 (Levaquin) 500 mg DAILY PO 09/26/16 20:00 09/28/16 09:24 (Xifaxan) 550 mg BID PO 09/27/16 21:00 09/28/16 09:23 (Coumadin) 3 mg DAILY@16 PO 09/28/16 16:00 Patient's Strengths (min. 2) Verbally fluent. Hopeful. Physical Exam Physical exam completed by primary team. On my examination today, the patient appears to be in no acute physical distress. No motor abnormalities noted. Labs and vitals reviewed: Vital Signs Vital Signs Date Time Temp Pulse Resp B/P Pulse Ox O2 Delivery O2 Flow Rate FiO2 09/28/16 12:00 98.1 89 20 136/74 96 09/27/16 20:50 Room Air I/O 09/27/16 09/27/16 09/27/16 07:59 15:59 23:59 Intake Total 688 ml 101 ml 240 ml Output Total 200 ml Balance 688 ml 101 ml 40 ml Lab Results Laboratory Tests Test 09/19/16 09/24/16 09/24/16 09/25/16 08:25 19:30 20:28 11:06 Egzj-zqds-8-Glycoprotein I LESS THAN 9.0 IgG Ab [facility] Ulxz-buim-4-Glycoprotein I LESS THAN 9.0 IgA Ab B[facility]IO Zddm-nmun-6-Glycoprotein I LESS THAN 9.0 IgM Ab [facility] Phosphatidylserine IgG LESS THAN 10 Antibody U/mL Phosphatidylserine IgA LESS THAN 20 Antibody U/mL Phosphatidylserine IgM LESS THAN 25 Antibody U/mL Anti-Phospholipid Antibody Interp Anti-Cardiolipin IgG Antibody LESS THAN 14.0 GPL Anti-Cardiolipin IgA Antibody LESS THAN 11.0 APL Anti-Cardiolipin IgM Antibody LESS THAN 12.0 MPL Urine Color YELLOW Urine Turbidity HAZY Urine pH 5.0 Urine Specific [place] 1.010 Urine Protein NEG mg/dL Urine Glucose (UA) NEG mg/dL Urine Ketones NEG mg/dL Urine Occult Blood NEG Urine Nitrite NEG Urine Bilirubin NEG Urine Urobilinogen LESS THAN 2.0 MG/DL Urine Leukocyte Esterase MOD Urine RBC 6 /hpf Urine WBC 10 /hpf Urine Uric Acid Crystals OCC /hpf Urine Bacteria RARE /hpf Urine Mucus FEW /lpf Microscopic Urinalysis Comment CATH-CULTURE IND Lactic Acid Level 1.5 mmol/L Stool C. difficile Toxin (PCR) NEGATIVE Stl C. difficile Toxin PRESUMPTIVE Epiderm 027 NEGATIVE Test 09/26/16 09/27/16 09/28/16 09/28/16 05:23 07:56 07:20 08:00 Total Bilirubin 0.6 MG/DL Aspartate Amino Transf 13 U/L (AST/SGOT) Alanine Aminotransferase LESS THAN 6 U/L (ALT/SGPT) Alkaline Phosphatase 67 U/L Albumin 1.8 GM/DL Differential Total Cells 100 Counted Neutrophils % (Manual) 52 % Band Neutrophils % 3 % Lymphocytes % 29 % Monocytes % 13 % Eosinophils % 3 % Neutrophils # (Manual) 3.5 TH/MM3 Atypical Lymphocytes % Smudge Cells PRESENT Platelet Estimate NORMAL Platelet Morphology Comment NORMAL Ovalocytes 1+ Acanthocytes OCC Keratocytes OCC White Blood Count 8.1 TH/MM3 Red Blood Count 3.10 MIL/MM3 Hemoglobin 9.1 GM/DL Hematocrit 27.1 % Mean Corpuscular Volume 87.6 FL Mean Corpuscular Hemoglobin 29.2 PG Mean Corpuscular Hemoglobin 33.4 % Concent Red Cell Distribution Width 16.2 % Platelet Count 189 TH/MM3 Mean Platelet Volume 8.9 FL Neutrophils (%) (Auto) 61.0 % Lymphocytes (%) (Auto) 26.5 % Monocytes (%) (Auto) 9.4 % Eosinophils (%) (Auto) 2.0 % Basophils (%) (Auto) 1.1 % Neutrophils # (Auto) 4.9 TH/MM3 Lymphocytes # (Auto) 2.2 TH/MM3 Monocytes # (Auto) 0.8 TH/MM3 Eosinophils # (Auto) 0.2 TH/MM3 Basophils # (Auto) 0.1 TH/MM3 CBC Comment AUTO DIFF Differential Comment AUTO DIFF CONFIRMED Hematology Comments Sodium Level 139 MEQ/L Potassium Level 4.2 MEQ/L Chloride Level 105 MEQ/L Carbon Dioxide Level 27.2 MEQ/L Anion Gap 7 MEQ/L Blood Urea Nitrogen 3 MG/DL Creatinine 0.82 MG/DL Estimat Glomerular Filtration 71 ML/MIN Rate Random Glucose 100 MG/DL Calcium Level 7.2 MG/DL Protein Corrected Calcium 7.9 MG/DL Total Protein 5.8 GM/DL Prothrombin Time 30.6 SEC Prothromb Time International 2.7 RATIO Ratio Activated Partial 35.8 SEC Thromboplast Time Mental Status Examination Patient is in hospital [facility]. She is fairly well groomed and maintaining basic hygiene. She is awake and alert and oriented to person, place and date. She is able to spell the word world forwards but struggles to spell it backward. No motor abnormalities noted. Speech is within normal limits for rate, tone and volume. Language and fund of knowledge average. Focus and concentration somewhat scattered. Mood somewhat depressed. Affect somewhat restricted and tearful. Thought process linear. No loosening of associations. No delusions elicited. Denies audiovisual hallucinations. Denies suicidal or homicidal ideation, intent or plan. Insight and judgment are fair. Assessment & Plan Problem List: (1) Adjustment disorder with mixed anxiety and depressed mood ICD Code: F43.23 Assessment & Plan This is a 60-year-old female with psychiatric history as detailed above who is presently voluntarily admitted to the inpatient medical unit for the management of perforated duodenal ulcer. Psychiatry is consulted because of complaints of worsening depression. On my examination today, the patient reports a moderate degree of depressive symptomatology as well as anxiety. This is certainly exacerbated by, and may in fact be completely reactive to, her current medical condition. The patient denies suicidal ideation and retains hope and future orientation. She is presently on a low-dose of Prozac as well as Xanax as needed. For now, I recommend the following: --Given ongoing depressive symptoms and reported difficulty with sleep/appetite , and given that she reports having been on much higher doses of Prozac without much additional benefit, I think it is reasonable to augment her Prozac with Remeron 15 mg at bedtime. I have taken the liberty of adding the Remeron. --Okay to continue Xanax as needed for anxiety, but I have cautioned the patient about its addictive potential as well as the risk for worsening mental status given her comorbid medical issues. --Patient does not require inpatient psychiatric hospitalization at this time. She is not presently suicidal or homicidal. --I will ask Dr. Herr to follow-up after the weekend. Thank you very much for this consultation. Please call or page with questions. Eren Cheek MD Sep 28, 2016 13:40
[2016-09-28] MEDS: oxyCODONE HCL ORAL CONC 20 MG/ML SYRINGE PO PRN (16:58)
[2016-09-28] MEDS: WARFARIN SOD 3 MG TAB PO SCH (16:59)
[2016-09-28] MEDS: MIRTAZAPINE ODT 15 MG TAB PO SCH (21:43)
[2016-09-28] MEDS: BISACODYL EC 5 MG TABEC PO SCH (21:44)
[2016-09-29 04:13] VITALS: BP 134/74; PULSE 83; RESP 16; TEMP 99; O2SAT 96
[2016-09-29] MEDS: INSULIN ASPART SUPPLEMENTAL SCALE SQ SCH ×4 (05:41→21:00)
[2016-09-29] MEDS: DEXT 5%-NACL 0.45% 1000 ML INJ 1,000 ML IV SCH (05:41)
[2016-09-29] MEDS: SUCRALFATE 1 GM/10 ML CUP PO SCH ×4 (05:41→21:43)
[2016-09-29] MEDS: metroNIDAZOLE 500 MG TAB PO SCH ×3 (05:41→21:43)
[2016-09-29 07:18] LABS: APTT (PATIENT) 28.2 SEC (24.3-30.1); AUTOMATED NEUTROPHIL # 3.2 TH/MM3 (1.8-7.7); BASOPHIL # 0.2 TH/MM3 (0-0.2); EOSINOPHIL # 0.2 TH/MM3 (0-0.4); EOSINOPHIL % 2.7 % (0.0-4.0); HEMO FLAGS DIFF FINAL; INTERNATIONAL NORMALIZED RATIO 2.5 RATIO; LYMPH % 41.1 % (9.0-44.0); MEAN CELL VOLUME 90.7 FL (80.0-100.0); MEAN CORPUSCULAR HEMOGLOBIN 30.5 PG (27.0-34.0); MEAN CORPUSCULAR HGB CONC 33.6 % (32.0-36.0); MONO % 9.6 % (0.0-8.0); NEUT % 43.6 % (16.0-70.0); PLATELET COUNT 256 TH/MM3 (150-450); PROTHROMBIN TIME - PATIENT 28.2 SEC (9.8-11.6); RED BLOOD COUNT 3.42 MIL/MM3 (4.00-5.30); RED CELL DISTRIBUTION WIDTH 16.6 % (11.6-17.2); WHITE BLOOD COUNT 7.4 TH/MM3 (4.0-11.0)
[2016-09-29 07:27] LABS: BICARBONATE 25.6 MEQ/L (21.0-32.0); POTASSIUM 3.9 MEQ/L (3.5-5.1)
[2016-09-29 08:06] VITALS: BP 127/86; PULSE 84; RESP 18; TEMP 99.5; O2SAT 97
[2016-09-29 08:40] VITALS: PULSE 75
[2016-09-29] MEDS: FLUCONAZOLE 200 MG TAB PO SCH (08:41)
[2016-09-29] MEDS: FLUoxetine HCL 20 MG CAP PO SCH (08:41)
[2016-09-29] MEDS: RIFAXIMIN 550 MG TAB PO SCH ×2 (08:41→21:43)
[2016-09-29] MEDS: SODIUM CHLORIDE 0.9% 10 ML VIAL IRRIGATION SCH ×2 (08:41→21:00)
[2016-09-29] MEDS: SODIUM CHLORIDE 0.9% FLUSH 10 ML FLUSH IV FLUSH SCH ×2 (08:41→21:00)
[2016-09-29] MEDS: LEVOFLOXACIN 500 MG TAB PO SCH (08:41)
[2016-09-29] MEDS: ALPRAZolam 1 MG TAB PO PRN ×2 (08:41→21:43)
[2016-09-29] MEDS: POLYETHYLENE GLYCOL 17 GM PKG PO SCH ×2 (08:42→21:00)
--- NOTE | 2016-09-29 08:55 | HHI.FPPN ---
Subjective Remarks Pt seen and examined this morning. Overnight there were issues obtaining IV access. Pt to have a central line placed tomorrow. Pts mood is significantly improved, laughing and joking during exam. She denies chest pain, shortness of breath. Abdominal pain is stable. Swelling of upper and lower extremities is stable. Objective Vitals Vital Signs Date Time Temp Pulse Resp B/P Pulse Ox O2 Delivery O2 Flow Rate FiO2 09/29/16 04:13 99.0 83 16 134/74 96 09/28/16 23:35 98.8 90 16 121/67 98 09/28/16 19:40 99.3 100 16 126/68 95 09/28/16 16:00 99.7 85 18 141/71 94 09/28/16 12:00 98.1 89 20 136/74 96 09/28/16 10:40 94 I/O 09/28/16 09/28/16 09/28/16 09/29/16 09/29/16 09/29/16 07:00 15:00 23:00 07:00 15:00 23:00 Intake Total 981 ml 720 ml 100 ml Output Total 350 ml 3 ml Balance 631 ml 720 ml 97 ml Intake Oral 0 ml 720 ml 100 ml IV Total 981 ml Output Urine Total 350 ml 3 ml # Voids 3 # Bowel Movements 0 2 1 Result Diagram: 09/29/1663509/29/16635 Objective Remarks GENERAL: This is an elderly female lying in bed, pleasant SKIN: . Cool and dry. HEENT: Atraumatic. Normocephalic. Pupils equal round and reactive. Extraocular motions intact. No scleral icterus. No injection or drainage. Trachea midline. CARDIOVASCULAR: Regular rate and rhythm, normal S1/2 no M/R/G RESPIRATORY: Clear to auscultation. Good air movement. No wheezes, rales, or rhonchi. GASTROINTESTINAL: Abdomen soft, mildly tender to palpation in all quadrants, improving. No guarding. Non-distended. No rebound. No masses appreciated. BS+. Bandage over right upper abdomen c/d/i. Minimal serous drainage. MUSCULOSKELETAL: Edema in upper and lower extremities, trace in upper extremities, 2+ in lower extremities. Mildly tender B/L. No erythema. No unilateral asymmetry. PT/DP pulses 2+ B/L NEUROLOGICAL: Awake and alert. Motor and sensory grossly within normal limits. Normal speech. Procedures Central Line placement 09/26/16 A/P Assessment and Plan This is a 60-year-old female with history of ulcerative colitis and ulcers, presents with severe anemia found to have perforated ulcer and abscess formation. Gastroenterology and colorectal surgery consulted. IR drainage completed 09/15, uncomplicated. Abscess appears resolved on CT (09/23). Patient currently on Coumadin for upper and lower extremity DVTs. Central line placed 09/26/16 due to difficulty in obtaining PIV access as well as thrombi in upstream vessels causing immediate infiltration following successful PIV insertion. Discharge Planning Timeframe unclear. Discharge pending GI bleed resolution, H/H stabilization, PT evaluation, discharge planning from consultants. Problem List: (1) Perforated duodenal ulcer Status: Acute Plan: CT scan 09/14 demonstrates a perforation of the duodenum with an abnormal fluid collection with contrast anterior to the mesenteric vasculature measuring 9.12.5 cm with adjacent stranding in the mesentery. There is no free perforation into the abdominal cavity. H&H stabilizing, reassuring 09/27: Upper GI and small bowel follow through: Large penetrating ulcer second portion of duodenum without extravasation.Delayed gastric emptying. Patient has been having bowel movements, dark General surgery consulted, Dr. Cisneros signed off (09/26), appreciate recommendations -Diet regular. GI reconsulted (09/26), appreciate recommendations and interventions -Continue MiraLAX -Continue Protonix -Trend H/H Infectious disease consulted, appreciate recommendations -Blood culture and Urine culture (09/24) no growth to date -Pt has been afebrile Medications: Levaquin 500mg po daily ( Diflucan 400mg po daily (09/25- ) Metronidazole 500mg IV Q8hrs (09/14- ) The above to be continued for 2 weeks Zosyn 3.375 IV daily discontinued (09/15-08/26 ) Pain control: Roxycodone, IV morphine for breakthrough (2) Abscess Status: Acute Plan: CT scan 09/14 shows 9.12.5 cm fluid collection anterior to the mesenteric vasculature with adjacent stranding in the mesentery. IR drainage performed 09/[address] 09/23 "Basically complete resolution of previously seen abscess with a few gas bubbles and mild haziness remaining the upper abdominal mesentery." Drain has been removed. See ABX below (3) GI bleed Status: Acute Plan: See plan for perforated lateral ulcer above Status post 4 units packed red blood cells (4) DVT (deep venous thrombosis) Status: Acute Plan: Patient found to have numerous DVTs of the upper and lower extremities. Hematology consulted, appreciate recommendations: - No absolute contraindication to anticoagulation - Coumadin to be resumed once INR is less than 3.0. - INR 2.5 09/29/16 - Coumadin resumed, 3mg po daily Imaging: Lower extremity ultrasound 09/18: Bilateral lower extremity DVTs with nonocclusive thrombus within the right mid superficial femoral vein and right greater saphenous vein as well as left popliteal vein and occlusive DVT within the right posterior tibial and left peroneal veins. Upper extremity ultrasound 09/18: Extensive DVTs and superficial thrombus is of the left upper extremity. (5) Pleural effusion Status: Acute Plan: Bilateral pleural effusions with left lung consolidation on CT - ID consulted for antibiotic optimization, see above - Pulmonary toilet, Incentive spirometer (6) Hypoalbuminemia Status: Acute Plan: Albumin low at 2.1 on 09/29 -Likely to improve as pts diet progresses -Consider Albumin 5% 12.5 gm IV x1, once pt has stable IV access -Continue to monitor -Consider additional albumin as needed -Continue to monitor (7) Depression with anxiety Status: Acute Plan: Tearful 09/27/16, Improved 09/28/16 * Consulted psychiatry * F/U consult * Continue fluoxetine 20 mg po daily * Xanax 1 mg Q8hrs prn anxiety (8) Diabetes Status: Acute Plan: History of chronic diabetes. On insulin at home. -Low dose sliding scale while inpatient, blood sugars have been well controlled. (9) FEN Status: Acute Plan: Fluids:None, pt currently tolerating PO Electrolytes: Continue to monitor Nutrition: Regular diet DVT ppx: Coumadin to be resumed when INR is 3. GI ppx: Protonix per GI Problem Qualifiers (1) GI bleed: Qualified Code: K29.91 - Gastrointestinal hemorrhage associated with gastroduodenitis (2) Diabetes: Qualified Code: E11.9 - Type 2 diabetes mellitus without complication, with long-term current use of insulin Zak Weiss MD R3 Sep 29, 2016 08:55
[2016-09-29] MEDS: oxyCODONE HCL ORAL CONC 20 MG/ML SYRINGE PO PRN (11:25)
[2016-09-29 12:27] VITALS: BP 116/63; PULSE 87; RESP 18; TEMP 98.2; O2SAT 96
--- NOTE | 2016-09-29 14:46 | HHI.GIFU ---
Subjective Remarks Lying in bed in no distress. Reports one episode of loose stool today. No nausea or vomiting. Reports mild right sided abdominal pain, but improving. Tolerating diet. (Tahmina Pappas) Objective Vitals I&O Vital Signs Date Time Temp Pulse Resp B/P Pulse Ox O2 Delivery O2 Flow Rate FiO2 09/29/16 12:27 98.2 87 18 116/63 96 09/29/16 08:40 75 09/29/16 08:06 99.5 84 18 127/86 97 09/29/16 04:13 99.0 83 16 134/74 96 09/28/16 23:35 98.8 90 16 121/67 98 09/28/16 19:40 99.3 100 16 126/68 95 09/28/16 16:00 99.7 85 18 141/71 94 I/O 09/28/16 09/28/16 09/28/16 09/29/16 09/29/16 09/29/16 07:00 15:00 23:00 07:00 15:00 23:00 Intake Total 981 ml 720 ml 100 ml Output Total 350 ml 3 ml Balance 631 ml 720 ml 97 ml Intake Oral 0 ml 720 ml 100 ml IV Total 981 ml Output Urine Total 350 ml 3 ml # Voids 3 # Bowel Movements 0 2 1 Laboratory Laboratory Tests Test 09/29/16 06:36 White Blood Count 7.4 Red Blood Count 3.42 Hemoglobin 10.4 Hematocrit 31.0 Mean Corpuscular Volume 90.7 Mean Corpuscular Hemoglobin 30.5 Mean Corpuscular Hemoglobin 33.6 Concent Red Cell Distribution Width 16.6 Platelet Count 256 Mean Platelet Volume 8.6 Neutrophils (%) (Auto) 43.6 Lymphocytes (%) (Auto) 41.1 Monocytes (%) (Auto) 9.6 Eosinophils (%) (Auto) 2.7 Basophils (%) (Auto) 3.0 Neutrophils # (Auto) 3.2 Lymphocytes # (Auto) 3.0 Monocytes # (Auto) 0.7 Eosinophils # (Auto) 0.2 Basophils # (Auto) 0.2 CBC Comment DIFF FINAL Differential Comment Prothrombin Time 28.2 Prothromb Time International 2.5 Ratio Activated Partial 28.2 Thromboplast Time Sodium Level 139 Potassium Level 3.9 Chloride Level 105 Carbon Dioxide Level 25.6 Anion Gap 8 Blood Urea Nitrogen 4 Creatinine 0.92 Estimat Glomerular Filtration 62 Rate Random Glucose 107 Calcium Level 8.1 Albumin 2.1 Date/Time Procedure Status Source Growth 09/25/16 05:15 Aerobic Blood Culture - Preliminary Resulted Blood Peripheral NO GROWTH IN 4 DAYS 09/25/16 05:15 Anaerobic Blood Culture - Preliminary Resulted Blood Peripheral NO GROWTH IN 4 DAYS 09/24/16 21:39 Wound Culture - Final Complete Catheter Tip Central Venous Line NO GROWTH IN 48 HOURS. 09/24/16 20:28 Aerobic Blood Culture - Final Complete Blood Peripheral NO GROWTH IN 5 DAYS 09/24/16 20:28 Anaerobic Blood Culture - Final Complete Blood Peripheral NO GROWTH IN 5 DAYS 09/24/16 19:30 Urine Culture - Final Complete Urine Clean Catch NO GROWTH IN 48 HOURS. Imaging Last Impressions Chest X-Ray 09/28/16 0000 Signed Impressions: Service Date/Time: Wednesday, September 28, 2016 11:09 - CONCLUSION: No acute cardiopulmonary abnormality is identified. Angel Perez MD Upper GI and Small Bowel X-Ray 09/27/16 0000 Signed Impressions: Service Date/Time: Tuesday, September 27, 2016 09:42 - CONCLUSION: Large penetrating ulcer second portion of duodenum without extravasation. Delayed gastric emptying. Pee Mcclure MD FACR Central Venous Line 09/26/16 0000 Signed Impressions: Service Date/Time: September 16:11 - CONCLUSION: Uncomplicated line placement as above. Ady Jasmine MD Abdomen/Pelvis CT 09/23/16 0000 Signed Impressions: Service Date/Time: Friday, September 23, 2016 15:49 - CONCLUSION: 1. Basically complete resolution of previously seen abscess with a few gas bubbles and mild haziness remaining the upper abdominal mesentery. 2. Slight anasarca and bilateral pleural effusions, left lung base consolidation. Whit Bullard MD Upper Extremity Ultrasound 09/18/16 0000 Signed Impressions: Service Date/Time: Sunday, September 18, 2016 13:11 - CONCLUSION: 1. Extensive deep venous thrombosis and superficial thrombosis left upper extremity. Pee Mcclure MD FACRADDENDUM: The above conclusion should read that there is deep venous thrombosis in the right upper extremity. Hemanth Tapia MD Lower Extremity Ultrasound 09/18/16 0000 Signed Impressions: Service Date/Time: Sunday, September 18, 2016 16:21 - CONCLUSION: Bilateral lower extremity deep venous thrombosis with nonocclusive thrombus within the right mid superficial femoral vein and right greater saphenous vein as well as left popliteal vein and occlusive DVT within the right posterior tibial and left peroneal veins. Nahun Bray MD Abscess Drainage CT 09/15/16 0000 Signed Impressions: Service Date/Time: Thursday, September 15, 2016 12:50 - CONCLUSION: Uncomplicated CT guided drainage, as above. Ady Jasmine MD Physical Exam HEENT: Normocephalic CHEST: CTA, diminished bases CARDIAC: RRR ABDOMEN: Soft, nondistended, mild diffuse tenderness to palpation, no guarding ; bowel sounds x 4 quadrants, bandage at RUQ c/d/i. EXTREMITIES: 2+ edema in bilateral lower extremities. Trace edema at bilateral upper extremities SKIN: Normal; no rash; no jaundice. REWEAVER: No focal deficits; alert and oriented x 3. (Tahmina Pappas) Assessment and Plan Plan ASSESSMENT: - Upper GIB, Melena in patient with large perforated duodenal ulcer. Recent hospitalization EGD/Colonoscopy (08/26/16)------> Esophagus normal, Stomach: normal, Duodenum: large ulcerations in the distal bulb extending into the descending duodenum. Multiple possibly ischemic looking ulcers. Biopsies taken. Also could be crohns ulcers. Ileum normal, at 25cm. Rectum has appearance of ileal pouch. Two biopsies taken. Pathology focally ulcerated and necrotic small intestinal mucosal biopsies exhibiting features suggestive of ischemia, distorted small intestinal mucosal biopsies with acute inflammation, clinically J pouch biopsy. Abdomen/Pelvis CTA (08/26/16)-----> I see no evidence for mesenteric ischemia. Rpt EGD (08/31/16) --> copious cheesy material in mid to distal esophagus, biopsy taken possible luis, antral gastritis, and large deep ulcer in distal bulb at 12:00 position. Ulcer in descending duodenum appears improved, looks more like typical PUD now. Pathology revealed antral mucosa with mild active chronic gastritis, esophageal mucosa with acute esophagitis containing budding yeast and pseudohyphae in the superficial keratin layers, consistent with luis esophagitis. A GMS stain performed on block #2 is positive for these fungal organisms. She was treated with Protonix, Carafate, Diflucan, Canasa, and Xifaxan. Rpt. EGD (09/14/16)----> 1. Gastritis antrum-biopsy, esophagitis distal esophagus-biopsy, duodenitis second and third portion of duodenum ulcer clean base duodenal bulb-communication with a cavitary area -looks old-biopsy, no active bleeding 2. Retroflexed views revealed a hiatal hernia. Biopsies duodenal mucosa without significant histopathologic abnormality, acute duodenitis with foveolar metaplasia and reactive epithelial changes, minimal chronic gastritis, negative for H. Pylori, esophageal distal biopsy with gastric type mucosa with severe chronic focally acute inflammation negative for intestinal metaplasia, dysplasia, or malignancy. Rpt imaging (09/14) revealed perforation along the proximal duodenum with fluid collection of contrast and air measuring 9.1 x 2.5 cm. S/P Abscess Drainage CT (09/15/16)----> Uncomplicated CT guided drainage, as above. Rpt. Abdomen/Pelvis CT (09/23/16)----> 1. Basically complete resolution of previously seen abscess with a few gas bubbles and mild haziness remaining the upper abdominal mesentery. 2. Slight anasarca and bilateral pleural effusions, left lung base consolidation. GS has signed off. S/P Protonix with BID dosing. GI reconsulted for melena, drop in hgb. Pt had reported dark tarry stools x 3 days. Patient reports one loose BM today. HH improving 10.. Cont. Flagyl, Diflucan. Protonix/Carafate. Upper GI and Small Bowel X-Ray 09/27/16--Large penetrating ulcer second portion of duodenum without extravasation. Delayed gastric emptying. - Severe anemia secondary to acute blood loss. S/P 5 units PRBC. HH 10. today. - Recent luis esophagitis. This was not seen on most recent endoscopy. Diflucan. PPI - Abnormal weight loss. 20 lb weight loss over 3 months. - Ulcerative colitis. Dx 1999. S/P Total Colectomy. - Leukocytosis/Fever/Lactic acid 2.7. Low grade fever overnight with T. Max 99.5. WBC 7.4 - CAROL. IMPROVED - DM, Depression/Anxiety, Hyperlipidemia PLAN: - JONELLE - Protonix Gtt - Carafate - Cont. Flagyl, Diflucan - Trial of Glucerna, gastroparesis diet - Trial of Rifaximin 550 mg PO bid - Monitor HH, transfuse as necessary - Supportive care - Further recommendations to follow based on results of above Patient seen and examined by Dr. Gutierrez and myself and this note is written on her behalf (Tahmina Pappas) Physician Comments seen, examined agree with above (Opal Gutierrez MD) Tahmina Pappas Sep 29, 2016 14:45 Opal Gutierrez MD Sep 29, 2016 20:37
[2016-09-29] MEDS: WARFARIN SOD 3 MG TAB PO SCH (15:36)
[2016-09-29 16:06] VITALS: BP 126/61; PULSE 81; RESP 19; TEMP 98.9; O2SAT 98
[2016-09-29] MEDS: BISACODYL EC 5 MG TABEC PO SCH ×2 (17:32→21:45)
[2016-09-29 20:00] VITALS: BP 112/59; PULSE 86; RESP 18; TEMP 99.1; O2SAT 98
[2016-09-29] MEDS: MIRTAZAPINE ODT 15 MG TAB PO SCH (21:43)
[2016-09-30] VITALS (8 sets, daily range): BP systolic 125–155; BP diastolic 65–77; PULSE 75–89; RESP 15–22; TEMP 98.2–99.7; O2SAT 93–100
[2016-09-30] MEDS: SUCRALFATE 1 GM/10 ML CUP PO SCH ×4 (04:59→22:23)
[2016-09-30] MEDS: metroNIDAZOLE 500 MG TAB PO SCH ×3 (04:59→22:25)
[2016-09-30] MEDS: INSULIN ASPART SUPPLEMENTAL SCALE SQ SCH ×4 (06:45→21:00)
[2016-09-30 08:17] LABS: APTT (PATIENT) 31.7 SEC (24.3-30.1); INTERNATIONAL NORMALIZED RATIO 2.3 RATIO; PROTHROMBIN TIME - PATIENT 26.5 SEC (9.8-11.6)
[2016-09-30 08:18] LABS: AUTOMATED NEUTROPHIL # 2.8 TH/MM3 (1.8-7.7); BASOPHIL % 0.7 % (0.0-2.0); EOSINOPHIL # 0.2 TH/MM3 (0-0.4); EOSINOPHIL % 3.1 % (0.0-4.0); HEMATOCRIT 27.7 % (35.0-46.0); LYMPH % 40.2 % (9.0-44.0); LYMPHOCYTE # 2.4 TH/MM3 (1.0-4.8); MEAN CELL VOLUME 91.8 FL (80.0-100.0); MEAN CORPUSCULAR HEMOGLOBIN 30.5 PG (27.0-34.0); MEAN CORPUSCULAR HGB CONC 33.2 % (32.0-36.0); MONO % 9.5 % (0.0-8.0); NEUT % 46.5 % (16.0-70.0); PLATELET COUNT 185 TH/MM3 (150-450); RED BLOOD COUNT 3.02 MIL/MM3 (4.00-5.30); RED CELL DISTRIBUTION WIDTH 16.6 % (11.6-17.2); WHITE BLOOD COUNT 5.9 TH/MM3 (4.0-11.0)
[2016-09-30 08:20] LABS: HEMO FLAGS AUTO DIFF
[2016-09-30 08:37] LABS: BICARBONATE 27.9 MEQ/L (21.0-32.0); POTASSIUM 3.9 MEQ/L (3.5-5.1)
[2016-09-30 08:50] LABS: EOSINOPHILS 1 % (0-4); NEUTROPHIL # MANUAL DIFF 3.1 TH/MM3 (1.8-7.7); POLYS (SEG NEUTROPHILS) 52 % (16-70); WBC DIFF SAMPLE 100
[2016-09-30 08:51] LABS: OVALOCYTES 1+ (NORMAL); PLATELET ESTIMATE SMEAR NORMAL (NORMAL); PLATELET MORPHOLOGY NORMAL (NORMAL); SCAN/DIFF FINAL DIFF MANUAL
[2016-09-30] MEDS: SODIUM CHLORIDE 0.9% FLUSH 10 ML FLUSH IV FLUSH SCH ×2 (08:59→22:22)
[2016-09-30] MEDS: LEVOFLOXACIN 500 MG TAB PO SCH (08:59)
[2016-09-30] MEDS: RIFAXIMIN 550 MG TAB PO SCH ×2 (08:59→22:24)
[2016-09-30] MEDS: FLUoxetine HCL 20 MG CAP PO SCH (08:59)
[2016-09-30] MEDS: FLUCONAZOLE 200 MG TAB PO SCH (08:59)
[2016-09-30] MEDS: POLYETHYLENE GLYCOL 17 GM PKG PO SCH ×2 (08:59→21:00)
[2016-09-30] MEDS: SODIUM CHLORIDE 0.9% 10 ML VIAL IRRIGATION SCH ×2 (09:00→21:00)
--- NOTE | 2016-09-30 09:27 | HHI.FPPN ---
Subjective Remarks Patient seen and examined this morning. No acute events over night. States she has very little abdominal pain at this time. 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 Patient stated she was happy today since yesterday family visited. No other complaints of nausea, vomiting, fever, chills, chest pain, shortness of breath, change in urinary habits. Objective Vitals Vital Signs Date Time Temp Pulse Resp B/P Pulse Ox O2 Delivery O2 Flow Rate FiO2 09/30/16 05:06 98.2 89 20 137/70 96 09/30/16 00:00 98.8 85 15 131/70 96 09/29/16 23:53 Room Air 09/29/16 20:00 Room Air 09/29/16 20:00 99.1 86 18 112/59 98 09/29/16 16:06 98.9 81 19 126/61 98 09/29/16 12:27 98.2 87 18 116/63 96 I/O 09/29/16 09/29/16 09/29/16 09/30/16 09/30/16 09/30/16 07:00 15:00 23:00 07:00 15:00 23:00 Intake Total 600 ml 360 ml 320 ml Output Total 500 ml Balance 600 ml 360 ml -180 ml Intake Oral 600 ml 360 ml 320 ml Output Urine Total 500 ml # Voids 2 2 # Bowel Movements 1 1 2 Result Diagram: 09/30/16 0615 09/30/16 0614 Objective Remarks GENERAL: This is an elderly female lying in bed, pleasant, tired appearing SKIN: . Cool and dry. HEENT: Atraumatic. Normocephalic. Pupils equal round and reactive. Extraocular motions intact. No scleral icterus. No injection or drainage. Trachea midline. CARDIOVASCULAR: Regular rate and rhythm, normal S1/2 no M/R/G RESPIRATORY: Clear to auscultation. Good air movement. No wheezes, rales, or rhonchi. GASTROINTESTINAL: Abdomen soft, mildly tender to palpation in all quadrants, improving. No guarding. Non-distended. No rebound. No masses appreciated. BS+. Bandage over right upper abdomen c/d/i. Minimal serous drainage. MUSCULOSKELETAL: Edema in upper and lower extremities, trace in upper extremities, 2+ in lower extremities. Mildly tender B/L. No erythema. No unilateral asymmetry. PT/DP pulses 2+ B/L NEUROLOGICAL: Awake and alert. Motor and sensory grossly within normal limits. Normal speech. Procedures Central Line placement 09/26/16, removed 09/27/16, no central lines at this time. Medications and IVs Current Medications Medications (Trade) Dose Ordered Sig/Ani Route Start Time Stop Time Status Last Admin (NS Flush) 2 ml UNSCH PRN IV FLUSH 09/14/16 12:30 09/19/16 14:35 (NS Flush) 2 ml BID IV FLUSH 09/14/16 21:00 09/30/16 08:59 (Zofran Inj) 4 mg Q6H PRN IV 09/14/16 12:45 09/26/16 22:47 (Xanax) 1 mg Q8H PRN PO 09/14/16 12:45 09/29/16 21:43 (PROzac) 20 mg DAILY PO 09/15/16 09:00 09/30/16 08:59 (D50w (Vial) Inj) 50 ml UNSCH PRN IV 09/14/16 12:45 (Glucagon Inj) 1 mg UNSCH PRN OTHER 09/14/16 12:45 (Morphine Inj) 4 mg Q3H PRN IV 09/14/16 22:30 09/25/16 13:55 (Narcan Inj) 0.4 mg UNSCH PRN IV 09/14/16 22:30 (NS Inj) 10 ml BID IRRIGATION 09/15/16 21:00 09/27/16 21:00 (Melatonin) 5 mg HS PRN PO 09/20/16 21:00 (Miralax) 17 gm BID PO 09/20/16 21:00 09/28/16 09:26 (Roxicodone Intensol Liq) 5 mg Q3H PRN PO 09/21/16 12:00 09/29/16 11:25 (Diflucan) 400 mg DAILY PO 09/25/16 09:00 09/30/16 08:59 (Flagyl) 500 mg Q8HR PO 09/24/16 22:00 09/30/16 04:59 Acetaminophen 650 mg 650 mg Q4H PRN PO 09/24/16 22:00 09/24/16 22:10 (Protonix Inj/NS Inj) 100 ml @ 10 mls/hr CONTINUOUS IV 09/26/16 15:00 (Carafate Liq) 1 gm ACHS PO 09/26/16 16:00 09/30/16 08:59 (Dulcolax Ec) 10 mg 18,21 PO 09/26/16 18:00 09/29/16 21:45 (Levaquin) 500 mg DAILY PO 09/26/16 20:00 09/30/16 08:59 (Xifaxan) 550 mg BID PO 09/27/16 21:00 09/30/16 08:59 (Coumadin) 3 mg DAILY@16 PO 09/28/16 16:00 09/29/16 15:36 (Remeron Soltab Odt) 15 mg HS PO 09/28/16 21:00 09/29/16 21:43 A/P Assessment and Plan This is a 60-year-old female with history of ulcerative colitis and ulcers, presents with severe anemia found to have perforated ulcer and abscess formation. Gastroenterology and colorectal surgery consulted. IR drainage completed 09/15, uncomplicated. Abscess appears resolved on CT (09/23). Patient currently on Coumadin for upper and lower extremity DVTs. Central line placed 09/26/16 due to difficulty in obtaining PIV access as well as thrombi in upstream vessels causing immediate infiltration following successful PIV insertion. Discharge Planning Timeframe unclear. Discharge pending GI bleed resolution, H/H stabilization, PT evaluation, discharge planning from consultants. Problem List: (1) Perforated duodenal ulcer Status: Acute Plan: CT scan 09/14 demonstrates a perforation of the duodenum with an abnormal fluid collection with contrast anterior to the mesenteric vasculature measuring 9.12.5 cm with adjacent stranding in the mesentery. There is no free perforation into the abdominal cavity. H/H currently uptrending as of 09/29/16, 09/30/16 labs not back yet H&H stabilizing, reassuring 09/27: Upper GI and small bowel follow through: Large penetrating ulcer second portion of duodenum without extravasation.Delayed gastric emptying. Patient has been having bowel movements, dark General surgery consulted, Dr. Cisneros signed off (09/26), appreciate recommendations -Diet regular. GI reconsulted (09/26), appreciate recommendations and interventions -Continue MiraLAX -Continue Protonix -Trend H/H Infectious disease consulted, appreciate recommendations -Blood culture and Urine culture (09/24) no growth to date -Pt has been afebrile Medications: Levaquin 500mg po daily ( Diflucan 400mg po daily (09/25- ) Metronidazole 500mg IV Q8hrs (09/14- ) Rifaximin 550 mg PO BID (09/27-) The above to be continued for 2 weeks Zosyn 3.375 IV daily discontinued (09/15-08/26 ) Pain control: Roxycodone, IV morphine for breakthrough (2) Abscess Status: Acute Plan: CT scan 09/14 shows 9.12.5 cm fluid collection anterior to the mesenteric vasculature with adjacent stranding in the mesentery. IR drainage performed 09/[address] 09/23 "Basically complete resolution of previously seen abscess with a few gas bubbles and mild haziness remaining the upper abdominal mesentery." Drain has been removed. See ABX below (3) GI bleed Status: Acute Plan: See plan for perforated lateral ulcer above Status post 4 units packed red blood cells (4) DVT (deep venous thrombosis) Status: Acute Plan: Patient found to have numerous DVTs of the upper and lower extremities. Hematology consulted, appreciate recommendations: - No absolute contraindication to anticoagulation - Coumadin to be resumed once INR is less than 3.0. - INR 2.5 09/29/16 - Coumadin resumed, 3mg po daily Imaging: Lower extremity ultrasound 09/18: Bilateral lower extremity DVTs with nonocclusive thrombus within the right mid superficial femoral vein and right greater saphenous vein as well as left popliteal vein and occlusive DVT within the right posterior tibial and left peroneal veins. Upper extremity ultrasound 09/18: Extensive DVTs and superficial thrombus is of the left upper extremity. (5) Pleural effusion Status: Acute Plan: Bilateral pleural effusions with left lung consolidation on CT - ID consulted for antibiotic optimization, see above - Pulmonary toilet, Incentive spirometer (6) Hypoalbuminemia Status: Acute Plan: Albumin low at 2.1 on 09/29, improving -Likely to improve as pts diet progresses -Consider Albumin 5% 12.5 gm IV x1, once pt has stable IV access -Continue to monitor -Consider additional albumin as needed -Continue to monitor (7) Depression with anxiety Status: Acute Plan: Tearful 09/27/16, Improved 09/28/16 * Consulted psychiatry, appreciated recommendations * Remeron 15 mg HS started * F/U consult * Continue fluoxetine 20 mg po daily * Xanax 1 mg Q8hrs prn anxiety (8) Diabetes Status: Acute Plan: History of chronic diabetes. On insulin at home. -Low dose sliding scale while inpatient, blood sugars have been well controlled. (9) FEN Status: Acute Plan: Fluids:None, pt currently tolerating PO Electrolytes: Continue to monitor Nutrition: Regular diet DVT ppx: Coumadin to be resumed when INR is 3. GI ppx: Protonix per GI Problem Qualifiers (1) GI bleed: Qualified Code: K29.91 - Gastrointestinal hemorrhage associated with gastroduodenitis (2) Diabetes: Qualified Code: E11.9 - Type 2 diabetes mellitus without complication, with long-term current use of insulin Elliott Willingham MD R1 Sep 30, 2016 09:27
[2016-09-30] MEDS: ALPRAZolam 1 MG TAB PO PRN (12:19)
--- NOTE | 2016-09-30 12:50 | RADRPT ---
EXAM DATE/TIME: 09/30/2016 11:10 [place] COMPARISON: No previous studies available for comparison. INDICATIONS : Patient with history of GI bleed in need of central line placement for access. MEDICAL HISTORY : GI bleed, IBS, Ulcerative colitis, Diabetes, HLD, DVT, Marcy esophagitis, GERD, Duodenal ulcer, Chr onic gastritis SURGICAL HISTORY : Total colectomy, Tubal ligation, Colonoscopy, EGD, Multiple duodenal biopsies, Abscess drain ENCOUNTER: Subsequent ACUITY: 2 weeks PAIN SCORE: 0/10 FLUORO TIME: 0.6 minutes IMAGE SERIES: 1 ACCESS: Right subclavian vein DEVICE(S): 1.) 7 Turkish triple lumen 20 cm Arrow central line PROCEDURE : 1. Ultrasound guided venipuncture. 2. Fluoroscopic guidance. 3. Central line placement. The risks, benefits and alternatives to the procedure were explained and verbal and written consent w as obtained. The site was prepped in sterile fashion. Full sterile technique was used, including ca p, mask, sterile gloves and gown and a large sterile sheet. Hand hygiene and 2% chlorhexidine prep w as utilized per protocol for cutaneous antisepsis with appropriate dry time for site. The skin and subcutaneous tissues were infiltrated with local anesthetic solution. A suitable site a callie the vein was selected with ultrasound and fluoroscopic guidance. A small incision was made. Th e vein was accessed under direct ultrasound visualization using the micropuncture technique. The mike ropuncture set was exchanged for a 0.035 wire. The tract was dilated. The catheter was advanced int o position under direct fluoroscopic visualization. The catheter was fixed in place with suture and a sterile dressing was applied. The patient tolerated the procedure well and there were no complications. CONCLUSION: Uncomplicated line placement as above. Angel Rodgers MD on September 30, 2016 at 12:49 Board Certified Radiologist. This report was verified electronically.
--- NOTE | 2016-09-30 13:08 | PD.RAD ---
Post Procedure Progress Note Pre Procedure Diagnosis: (1) GI bleed (2) Abscess Post Procedure Diagnosis: (1) GI bleed (2) Abscess Procedure Date: Sep 30, 2016 Supervising Radiologist: Angel Rodgers Proceduralist/Assist: RT Tico(R) Anesthesia: Local Plan of Activity Patient to Unit: Nursing Unit Patient Condition: Good See PACS Report for procedural detail/treatment Central Venous Access Device Procedure 1 Right Subclavian Central Line Placement triple lumen [place]: 7 Angel Rodgers MD Sep 30, 2016 13:08
[2016-09-30] MEDS ORDERED: SODIUM CHLORIDE 0.9% FLUSH 10 ML FLUSH IVF PRN (13:15)
--- NOTE | 2016-09-30 14:19 | PD.ONC.PN ---
Subjective Subjective Remarks Afebrile overnight. Patient frustrated, tired of being in the hospital. Wants to go home. Objective Data Date Time Temp Pulse Resp B/P Pulse Ox O2 Delivery O2 Flow Rate FiO2 09/30/16 12:00 99.0 89 22 125/72 100 09/30/16 09:00 80 09/30/16 08:00 99.7 79 18 129/69 93 09/30/16 08:00 Room Air 09/30/16 05:06 98.2 89 20 137/70 96 09/30/16 00:00 98.8 85 15 131/70 96 09/29/16 23:53 Room Air 09/29/16 20:00 Room Air 09/29/16 20:00 99.1 86 18 112/59 98 09/29/16 16:06 98.9 81 19 126/61 98 09/30/16 09/30/16 09/30/16 06:59 14:59 22:59 Intake Total 320 ml Output Total 500 ml Balance -180 ml Result Diagram: 09/30/1615 09/30/1614 Laboratory Results Laboratory Tests Test 09/30/16 09/30/16 06:14 06:15 Prothrombin Time 26.5 SEC Prothromb Time International 2.3 RATIO Ratio Activated Partial 31.7 SEC Thromboplast Time Sodium Level 141 MEQ/L Potassium Level 3.9 MEQ/L Chloride Level 106 MEQ/L Carbon Dioxide Level 27.9 MEQ/L Anion Gap 7 MEQ/L Blood Urea Nitrogen 4 MG/DL Creatinine 0.86 MG/DL Estimat Glomerular Filtration 67 ML/MIN Rate Random Glucose 109 MG/DL Calcium Level 7.8 MG/DL Albumin 1.8 GM/DL White Blood Count 5.9 TH/MM3 Red Blood Count 3.02 MIL/MM3 Hemoglobin 9.2 GM/DL Hematocrit 27.7 % Mean Corpuscular Volume 91.8 FL Mean Corpuscular Hemoglobin 30.5 PG Mean Corpuscular Hemoglobin 33.2 % Concent Red Cell Distribution Width 16.6 % Platelet Count 185 TH/MM3 Mean Platelet Volume 8.9 FL Neutrophils (%) (Auto) 46.5 % Lymphocytes (%) (Auto) 40.2 % Monocytes (%) (Auto) 9.5 % Eosinophils (%) (Auto) 3.1 % Basophils (%) (Auto) 0.7 % Neutrophils # (Auto) 2.8 TH/MM3 Lymphocytes # (Auto) 2.4 TH/MM3 Monocytes # (Auto) 0.6 TH/MM3 Eosinophils # (Auto) 0.2 TH/MM3 Basophils # (Auto) 0.0 TH/MM3 CBC Comment AUTO DIFF Differential Total Cells 100 Counted Neutrophils % (Manual) 52 % Lymphocytes % 39 % Monocytes % 8 % Eosinophils % 1 % Neutrophils # (Manual) 3.1 TH/MM3 Differential Comment FINAL DIFF MANUAL Platelet Estimate NORMAL Platelet Morphology Comment NORMAL Ovalocytes 1+ Imaging Studies Last 24 hours Impressions Central Venous Line 09/30/16 0000 Signed Impressions: Service Date/Time: Friday, September 30, 2016 11:10 - CONCLUSION: Uncomplicated line placement as above. Angel Rodgers MD Administered Medications Medications (Trade) Dose Ordered Sig/Ani Route PRN Reason Start Time Stop Time Status Last Admin Dose Admin Sodium Chloride (NS Flush) 2 ml UNSCH PRN IV FLUSH FLUSH AFTER USING IV ACCESS 09/14/16 12:30 09/19/16 14:35 Sodium Chloride (NS Flush) 2 ml BID IV FLUSH 09/14/16 21:00 09/30/16 08:59 Ondansetron HCl (Zofran Inj) 4 mg Q6H PRN IV NAUSEA 09/14/16 12:45 09/26/16 22:47 Alprazolam (Xanax) 1 mg Q8H PRN PO ANXIETY 09/14/16 12:45 09/30/16 12:19 Fluoxetine HCl (PROzac) 20 mg DAILY PO 09/15/16 09:00 09/30/16 08:59 Morphine Sulfate (Morphine Inj) 4 mg Q3H PRN IV BREAKTHROUGH PAIN 09/14/16 22:30 09/25/16 13:55 Sodium Chloride (NS Inj) 10 ml BID IRRIGATION 09/15/16 21:00 09/27/16 21:00 Polyethylene Glycol (Miralax) 17 gm BID PO 09/20/16 21:00 09/28/16 09:26 Oxycodone HCl (Roxicodone Intensol Liq) 5 mg Q3H PRN PO PAIN SCALE 5 TO 10 09/21/16 12:00 09/29/16 11:25 Fluconazole (Diflucan) 400 mg DAILY PO 09/25/16 09:00 09/30/16 08:59 Metronidazole (Flagyl) 500 mg Q8HR PO 09/24/16 22:00 09/30/16 04:59 Acetaminophen (Tylenol) 650 mg Q4H PRN PO FEVER 09/24/16 22:00 09/24/16 22:10 Sucralfate (Carafate Liq) 1 gm ACHS PO 09/26/16 16:00 09/30/16 08:59 Bisacodyl (Dulcolax Ec) 10 mg 18,21 PO 09/26/16 18:00 09/29/16 21:45 Levofloxacin (Levaquin) 500 mg DAILY PO 09/26/16 20:00 09/30/16 08:59 Rifaximin (Xifaxan) 550 mg BID PO 09/27/16 21:00 09/30/16 08:59 Warfarin Sodium (Coumadin) 3 mg DAILY@16 PO 09/28/16 16:00 09/29/16 15:36 Mirtazapine (Remeron Soltab Odt) 15 mg HS PO 09/28/16 21:00 09/29/16 21:43 Objective Remarks GENERAL: Middle aged female lying in bed, frustrated SKIN: Warm and dry. HEAD: Normocephalic. EYES: No injection or drainage. NECK: Supple, trachea midline. CARDIOVASCULAR: Regular rate and rhythm RESPIRATORY: Breath sounds equal bilaterally. No accessory muscle use. GASTROINTESTINAL: Abdomen soft, mildly tender, non-distended. EXTREMITIES: No cyanosis NEUROLOGICAL: awake and alert, normal speech. Assessment/Plan Problem List: (1) DVT (deep venous thrombosis) Status: Acute Plan: --on coumadin, INR therapeutic (2) GI bleed Status: Acute Plan: --presented to the emergency room with two episodes of dark stool on . --CT ab/pelvis showed perforation of the proximal duodenum with fluid collection and contrast measuring 9.1 x 2.5 cm. Assessment 60y/o female with bilateral upper extremity and lower extremity deep vein thromboses + GI bleed from a duodenal ulcer. --presented to the emergency room with two episodes of dark stool on 2016. --CT ab/pelvis showed perforation of the proximal duodenum with fluid collection and contrast measuring 9.1 x 2.5 cm. Plan 1. hgb stable. INR therapeutic. will consult pharmacy to take over management of coumadin 2. hematology will sign off Attending Statement Agree w/ above. As discussed. Problem Qualifiers (1) GI bleed: Qualified Code: K29.91 - Gastrointestinal hemorrhage associated with gastroduodenitis Talita Issa Sep 30, 2016 14:19 Tesha Branch MD Sep 30, 2016 22:40
[2016-09-30] MEDS: WARFARIN SOD 4 MG TAB PO SCH (14:31)
[2016-09-30 16:18] LABS: HEMATOCRIT 30.7 % (35.0-46.0); REVIEW FLAG FINAL
[2016-09-30] MEDS: ONDANSETRON HCL 4 MG/2 ML VIAL IV PRN (16:52)
[2016-09-30] MEDS: BISACODYL EC 5 MG TABEC PO SCH ×2 (16:52→21:00)
--- NOTE | 2016-09-30 17:01 | HHI.GIFU ---
Subjective Remarks Pt on BSC. Denies bleeding. No more melena. Objective Vitals I&O Vital Signs Date Time Temp Pulse Resp B/P Pulse Ox O2 Delivery O2 Flow Rate FiO2 09/30/16 16:40 Room Air 09/30/16 12:00 Room Air 09/30/16 12:00 99.0 89 22 125/72 100 09/30/16 09:00 80 09/30/16 08:00 99.7 79 18 129/69 93 09/30/16 08:00 Room Air 09/30/16 05:06 98.2 89 20 137/70 96 09/30/16 00:00 98.8 85 15 131/70 96 09/29/16 23:53 Room Air 09/29/16 20:00 Room Air 09/29/16 20:00 99.1 86 18 112/59 98 I/O 09/29/16 09/29/16 09/29/16 09/30/16 09/30/16 09/30/16 07:00 15:00 23:00 07:00 15:00 23:00 Intake Total 600 ml 360 ml 320 ml Output Total 500 ml Balance 600 ml 360 ml -180 ml Intake Oral 600 ml 360 ml 320 ml Output Urine Total 500 ml # Voids 2 2 # Bowel Movements 1 1 2 Laboratory Laboratory Tests Test 09/30/16 09/30/16 09/30/16 06:14 06:15 14:20 Prothrombin Time 26.5 Prothromb Time International 2.3 Ratio Activated Partial 31.7 Thromboplast Time Sodium Level 141 Potassium Level 3.9 Chloride Level 106 Carbon Dioxide Level 27.9 Anion Gap 7 Blood Urea Nitrogen 4 Creatinine 0.86 Estimat Glomerular Filtration 67 Rate Random Glucose 109 Calcium Level 7.8 Albumin 1.8 White Blood Count 5.9 Red Blood Count 3.02 Hemoglobin 9.2 9.7 Hematocrit 27.7 30.7 Mean Corpuscular Volume 91.8 Mean Corpuscular Hemoglobin 30.5 Mean Corpuscular Hemoglobin 33.2 Concent Red Cell Distribution Width 16.6 Platelet Count 185 Mean Platelet Volume 8.9 Neutrophils (%) (Auto) 46.5 Lymphocytes (%) (Auto) 40.2 Monocytes (%) (Auto) 9.5 Eosinophils (%) (Auto) 3.1 Basophils (%) (Auto) 0.7 Neutrophils # (Auto) 2.8 Lymphocytes # (Auto) 2.4 Monocytes # (Auto) 0.6 Eosinophils # (Auto) 0.2 Basophils # (Auto) 0.0 CBC Comment AUTO DIFF Differential Total Cells 100 Counted Neutrophils % (Manual) 52 Lymphocytes % 39 Monocytes % 8 Eosinophils % 1 Neutrophils # (Manual) 3.1 Differential Comment FINAL DIFF MANUAL Platelet Estimate NORMAL Platelet Morphology Comment NORMAL Ovalocytes 1+ Imaging Last Impressions Central Venous Line 09/30/16 0000 Signed Impressions: Service Date/Time: Friday, September 30, 2016 11:10 - CONCLUSION: Uncomplicated line placement as above. Angel Rodgers MD Chest X-Ray 09/28/16 0000 Signed Impressions: Service Date/Time: Wednesday, September 28, 2016 11:09 - CONCLUSION: No acute cardiopulmonary abnormality is identified. Angel Perez MD Upper GI and Small Bowel X-Ray 09/27/16 0000 Signed Impressions: Service Date/Time: Tuesday, September 27, 2016 09:42 - CONCLUSION: Large penetrating ulcer second portion of duodenum without extravasation. Delayed gastric emptying. Pee Mcclure MD FACR Abdomen/Pelvis CT 09/23/16 0000 Signed Impressions: Service Date/Time: Friday, September 23, 2016 15:49 - CONCLUSION: 1. Basically complete resolution of previously seen abscess with a few gas bubbles and mild haziness remaining the upper abdominal mesentery. 2. Slight anasarca and bilateral pleural effusions, left lung base consolidation. Whit Bullard MD Upper Extremity Ultrasound 09/18/16 0000 Signed Impressions: Service Date/Time: Sunday, September 18, 2016 13:11 - CONCLUSION: 1. Extensive deep venous thrombosis and superficial thrombosis left upper extremity. Pee Mcclure MD FACRADDENDUM: The above conclusion should read that there is deep venous thrombosis in the right upper extremity. Hemanth Tapia MD Lower Extremity Ultrasound 09/18/16 0000 Signed Impressions: Service Date/Time: Sunday, September 18, 2016 16:21 - CONCLUSION: Bilateral lower extremity deep venous thrombosis with nonocclusive thrombus within the right mid superficial femoral vein and right greater saphenous vein as well as left popliteal vein and occlusive DVT within the right posterior tibial and left peroneal veins. Nahun Bray MD Abscess Drainage CT 09/15/16 0000 Signed Impressions: Service Date/Time: Thursday, September 15, 2016 12:50 - CONCLUSION: Uncomplicated CT guided drainage, as above. Ady Jasmine MD Physical Exam HEENT: Normocephalic CHEST: respirations unlabored CARDIAC: RRR ABDOMEN: Soft, nondistended BS + EXTREMITIES: BLE edema SKIN: Normal; no rash; no jaundice. [employer]: No focal deficits; alert and oriented x 3. Assessment and Plan Plan ASSESSMENT: - Upper GIB, Melena in patient with large perforated duodenal ulcer. Recent hospitalization EGD/Colonoscopy (08/26/16)------> Esophagus normal, Stomach: normal, Duodenum: large ulcerations in the distal bulb extending into the descending duodenum. Multiple possibly ischemic looking ulcers. Biopsies taken. Also could be crohns ulcers. Ileum normal, at 25cm. Rectum has appearance of ileal pouch. Two biopsies taken. Pathology focally ulcerated and necrotic small intestinal mucosal biopsies exhibiting features suggestive of ischemia, distorted small intestinal mucosal biopsies with acute inflammation, clinically J pouch biopsy. Abdomen/Pelvis CTA (08/26/16)-----> I see no evidence for mesenteric ischemia. Rpt EGD (08/31/16) --> copious cheesy material in mid to distal esophagus, biopsy taken possible luis, antral gastritis, and large deep ulcer in distal bulb at 12:00 position. Ulcer in descending duodenum appears improved, looks more like typical PUD now. Pathology revealed antral mucosa with mild active chronic gastritis, esophageal mucosa with acute esophagitis containing budding yeast and pseudohyphae in the superficial keratin layers, consistent with luis esophagitis. A GMS stain performed on block #2 is positive for these fungal organisms. She was treated with Protonix, Carafate, Diflucan, Canasa, and Xifaxan. Rpt. EGD (09/14/16)----> 1. Gastritis antrum-biopsy, esophagitis distal esophagus-biopsy, duodenitis second and third portion of duodenum ulcer clean base duodenal bulb-communication with a cavitary area -looks old-biopsy, no active bleeding 2. Retroflexed views revealed a hiatal hernia. Biopsies duodenal mucosa without significant histopathologic abnormality, acute duodenitis with foveolar metaplasia and reactive epithelial changes, minimal chronic gastritis, negative for H. Pylori, esophageal distal biopsy with gastric type mucosa with severe chronic focally acute inflammation negative for intestinal metaplasia, dysplasia, or malignancy. Rpt imaging (09/14) revealed perforation along the proximal duodenum with fluid collection of contrast and air measuring 9.1 x 2.5 cm. S/P Abscess Drainage CT (09/15/16)----> Uncomplicated CT guided drainage, as above. Rpt. Abdomen/Pelvis CT (09/23/16)----> 1. Basically complete resolution of previously seen abscess with a few gas bubbles and mild haziness remaining the upper abdominal mesentery. 2. Slight anasarca and bilateral pleural effusions, left lung base consolidation. GS has signed off. S/P Protonix with BID dosing. GI reconsulted for melena, drop in hgb. Pt had reported dark tarry stools x 3 days. HH stable, no melena today. Cont. Flagyl, Diflucan. Protonix/Carafate. Upper GI and Small Bowel X-Ray --Large penetrating ulcer second portion of duodenum without extravasation. Delayed gastric emptying. - Severe anemia secondary to acute blood loss. S/P 5 units PRBC. HH 10. today. - Recent luis esophagitis. This was not seen on most recent endoscopy. Diflucan. PPI - Abnormal weight loss. 20 lb weight loss over 3 months. - Ulcerative colitis. Dx 1999. S/P Total Colectomy. - Leukocytosis/Fever/Lactic acid 2.7. Low grade fever overnight with T. Max 99.5. WBC 7.4 - CAROL. IMPROVED - DM, Depression/Anxiety, Hyperlipidemia PLAN: - JONELLE - Protonix Gtt - Carafate - Cont. Flagyl, Diflucan - low res diet - continue glucerna - Trial of Rifaximin 550 mg PO bid - Monitor HH, transfuse as necessary - Supportive care - Further recommendations to follow based on results of above Patient seen and examined by and myself and this note is written on his behalf Sandra Valerio Sep 30, 2016 17:01
[2016-09-30] MEDS: MIRTAZAPINE ODT 15 MG TAB PO SCH (22:24)
[2016-10-01] VITALS (8 sets, daily range): BP systolic 124–146; BP diastolic 64–84; PULSE 61–81; RESP 16–18; TEMP 97.3–99.3; O2SAT 94–97
[2016-10-01] MEDS: metroNIDAZOLE 500 MG TAB PO SCH ×3 (05:10→20:49)
[2016-10-01] MEDS: SUCRALFATE 1 GM/10 ML CUP PO SCH ×4 (05:10→20:27)
[2016-10-01] MEDS: INSULIN ASPART SUPPLEMENTAL SCALE SQ SCH ×4 (05:22→20:31)
[2016-10-01 06:48] LABS: HEMATOCRIT 25.4 % (35.0-46.0); MEAN CELL VOLUME 86.5 FL (80.0-100.0); MEAN CORPUSCULAR HEMOGLOBIN 28.9 PG (27.0-34.0); MEAN CORPUSCULAR HGB CONC 33.4 % (32.0-36.0); PLATELET COUNT 225 TH/MM3 (150-450); RED BLOOD COUNT 2.94 MIL/MM3 (4.00-5.30); RED CELL DISTRIBUTION WIDTH 16.8 % (11.6-17.2); REVIEW FLAG FINAL; WHITE BLOOD COUNT 5.6 TH/MM3 (4.0-11.0)
[2016-10-01 06:56] LABS: APTT (PATIENT) 32.6 SEC (24.3-30.1); INTERNATIONAL NORMALIZED RATIO 2.3 RATIO; PROTHROMBIN TIME - PATIENT 26.6 SEC (9.8-11.6)
[2016-10-01] MEDS: PANTOPRAZOLE INJ 80 MG in SODIUM CHLORIDE 0.9% INJ 100 ML IV SCH (06:56)
[2016-10-01 07:21] LABS: BICARBONATE 30.7 MEQ/L (21.0-32.0); POTASSIUM 3.3 MEQ/L (3.5-5.1)
--- NOTE | 2016-10-01 08:33 | HHI.FPPN ---
Subjective Remarks Pt seen and examined this morning. No acute events overnight. AFVSS. Pt reports feeling well overall. She reports that her most recent bowel movement was orange /red in color. She denies abdominal pain. Lower extremity edema is stable. She denies chest pain, shortness of breath. (Zak Weiss MD R3) Objective Vitals Vital Signs Date Time Temp Pulse Resp B/P Pulse Ox O2 Delivery O2 Flow Rate FiO2 10/01/16 08:00 98.7 70 18 136/65 95 10/01/16 05:08 98.9 74 16 140/79 94 10/01/16 00:37 98.1 65 16 146/81 94 10/01/16 00:37 Room Air 09/30/16 22:20 Room Air 09/30/16 21:13 Room Air 09/30/16 21:13 99.3 75 16 155/77 96 09/30/16 20:02 79 09/30/16 16:40 Room Air 09/30/16 16:00 98.4 85 18 125/65 98 09/30/16 12:00 Room Air 09/30/16 12:00 99.0 89 22 125/72 100 09/30/16 09:00 80 I/O 09/30/16 09/30/16 09/30/16 10/01/16 10/01/16 10/01/16 07:00 15:00 23:00 07:00 15:00 23:00 Intake Total 320 ml 0 ml 0 ml Output Total 500 ml Balance -180 ml 0 ml 0 ml Intake Oral 320 ml 0 ml 0 ml Output Urine Total 500 ml # Voids 3 6 # Bowel Movements 2 2 2 (Zak Weiss MD R3) Result Diagram: 10/01/16 0620 10/01/16 0620 Objective Remarks GENERAL: This is an elderly female lying in bed, pleasant, tired appearing SKIN: . Cool and dry. HEENT: Atraumatic. Normocephalic. Pupils equal round and reactive. Extraocular motions intact. No scleral icterus. No injection or drainage. Trachea midline. CARDIOVASCULAR: Regular rate and rhythm, normal S1/2 no M/R/G RESPIRATORY: Clear to auscultation. Good air movement. No wheezes, rales, or rhonchi. GASTROINTESTINAL: Abdomen soft, mildly tender to palpation in all quadrants, improving. No guarding. Non-distended. No rebound. No masses appreciated. BS+. Bandage over right upper abdomen c/d/i. Minimal serous drainage. MUSCULOSKELETAL: Edema in upper and lower extremities, trace in upper extremities, 2+ in lower extremities. Mildly tender B/L. No erythema. No unilateral asymmetry. PT/DP pulses 2+ B/L NEUROLOGICAL: Awake and alert. Motor and sensory grossly within normal limits. Normal speech. Procedures Central Line placement 09/26/16, removed 09/27/16, replaced on 09/30/16. (Zak Weiss MD R3) A/P Assessment and Plan This is a 60-year-old female with history of ulcerative colitis and ulcers, presents with severe anemia found to have perforated ulcer and abscess formation. Gastroenterology and colorectal surgery consulted. IR drainage completed 09/15, uncomplicated. Abscess appears resolved on CT (09/23). Patient currently on Coumadin for upper and lower extremity DVTs. Central line placed 09/26/16 due to difficulty in obtaining PIV access as well as thrombi in upstream vessels causing immediate infiltration following successful PIV insertion. Discharge Planning Discharge pending GI bleed resolution, H/H stabilization, PT evaluation, likely in the next 1-2 days. (Zak Weiss MD R3) Attending Attestation Patient seen and examined. Case reviewed and discussed with the resident team. Agree with plan of care as discussed with me and documented in the resident note. (Claudio Lassiter MD) Problem List: (1) Perforated duodenal ulcer Status: Acute Plan: CT scan 09/14 demonstrates a perforation of the duodenum with an abnormal fluid collection with contrast anterior to the mesenteric vasculature measuring 9.12.5 cm with adjacent stranding in the mesentery. There is no free perforation into the abdominal cavity. H/H currently uptrending as of 09/29/16, 09/30/16 labs not back yet H&H stabilizing, down trending. Will recheck at Noon. Will also check Hemoccult. 09/27: Upper GI and small bowel follow through: Large penetrating ulcer second portion of duodenum without extravasation. Delayed gastric emptying. Patient has been having bowel movements, dark General surgery consulted, Dr. Cisneros signed off (09/26), appreciate recommendations -Diet regular. GI reconsulted (09/26), appreciate recommendations and interventions -Continue MiraLAX -Continue Protonix -Trend H/H Infectious disease consulted, appreciate recommendations -Blood culture and Urine culture (09/24) no growth to date -Pt has been afebrile Medications: Levaquin 500mg po daily ( Diflucan 400mg po daily (09/25- ) Metronidazole 500mg IV Q8hrs (09/14- ) Rifaximin 550 mg PO BID (09/27-) The above to be continued for 2 weeks Zosyn 3.375 IV daily discontinued (09/15-08/26 ) Pain control: Roxycodone, IV morphine for breakthrough (2) Abscess Status: Acute Plan: CT scan 09/14 shows 9.12.5 cm fluid collection anterior to the mesenteric vasculature with adjacent stranding in the mesentery. IR drainage performed 09/[address] 09/23 "Basically complete resolution of previously seen abscess with a few gas bubbles and mild haziness remaining the upper abdominal mesentery." Drain has been removed. See ABX below (3) GI bleed Status: Acute Plan: See plan for perforated lateral ulcer above Status post 4 units packed red blood cells (4) DVT (deep venous thrombosis) Status: Acute Plan: Patient found to have numerous DVTs of the upper and lower extremities. Hematology consulted, currently signed off, appreciate recommendations: - No absolute contraindication to anticoagulation - INR 2.3 10/01/16 - Continue Coumadin 4mg po daily Imaging: Lower extremity ultrasound 09/18: Bilateral lower extremity DVTs with nonocclusive thrombus within the right mid superficial femoral vein and right greater saphenous vein as well as left popliteal vein and occlusive DVT within the right posterior tibial and left peroneal veins. Upper extremity ultrasound 09/18: Extensive DVTs and superficial thrombus is of the left upper extremity. (5) Pleural effusion Status: Acute Plan: Bilateral pleural effusions with left lung consolidation on CT - ID consulted for antibiotic optimization, see above - Pulmonary toilet, Incentive spirometer (6) Hypoalbuminemia Status: Acute Plan: Albumin low at 1.8 on 10/01 -Likely to improve as pts diet progresses -Albumin 5% 12.5 gm IV x1 -Continue to monitor -Consider additional albumin as needed -Continue to monitor (7) Depression with anxiety Status: Acute Plan: * Consulted psychiatry, appreciated recommendations * Remeron 15 mg HS started * F/U consult * Continue fluoxetine 20 mg po daily * Xanax 1 mg Q8hrs prn anxiety (8) Diabetes Status: Acute Plan: History of chronic diabetes. On insulin at home. -Low dose sliding scale while inpatient, blood sugars have been well controlled. (9) FEN Status: Acute Plan: Fluids:None, pt currently tolerating PO Electrolytes: Continue to monitor Nutrition: Regular diet DVT ppx: Coumadin to be resumed when INR is 3. GI ppx: Protonix drip (Zak Weiss MD R3) Problem Qualifiers (1) GI bleed: Qualified Code: K29.91 - Gastrointestinal hemorrhage associated with gastroduodenitis (2) Diabetes: Qualified Code: E11.9 - Type 2 diabetes mellitus without complication, with long-term current use of insulin Zak Weiss MD R3 Oct 01, 2016 08:33 Claudio Lassiter MD Oct 02, 2016 10:59
[2016-10-01] MEDS: POLYETHYLENE GLYCOL 17 GM PKG PO SCH ×2 (09:00→20:27)
[2016-10-01] MEDS: SODIUM CHLORIDE 0.9% FLUSH 10 ML FLUSH IV FLUSH SCH ×2 (09:13→20:27)
[2016-10-01] MEDS: FLUoxetine HCL 20 MG CAP PO SCH (09:14)
[2016-10-01] MEDS: RIFAXIMIN 550 MG TAB PO SCH ×2 (09:14→20:27)
[2016-10-01] MEDS: FLUCONAZOLE 200 MG TAB PO SCH (09:14)
[2016-10-01] MEDS: LEVOFLOXACIN 500 MG TAB PO SCH (09:14)
[2016-10-01] MEDS: SODIUM CHLORIDE 0.9% FLUSH 10 ML FLUSH IVF SCH (09:14)
[2016-10-01] MEDS ORDERED: ALBUMIN HUMAN 5% 12.5 GM/250 ML BOTTLE IV ONE (10:15)
[2016-10-01] MEDS ORDERED: POTASSIUM CHLORIDE 10 MEQ CAP PO ONE (10:15)
[2016-10-01 12:43] LABS: HEMATOCRIT 25.1 % (35.0-46.0); REVIEW FLAG FINAL
[2016-10-01] MEDS: WARFARIN SOD 4 MG TAB PO SCH (16:48)
[2016-10-01] MEDS: ALPRAZolam 1 MG TAB PO PRN (16:48)
[2016-10-01] MEDS: BISACODYL EC 5 MG TABEC PO SCH ×2 (16:48→20:28)
--- NOTE | 2016-10-01 17:34 | HHI.GIFU ---
Subjective Remarks Resting in bed. Tearful, states she is tired of being sick and feeling depressed from being in the hospital so long. No further melena- had 3 loose stools today, but states that they were orangish in color. Mild epigastric discomfort. Objective Vitals I&O Vital Signs Date Time Temp Pulse Resp B/P Pulse Ox O2 Delivery O2 Flow Rate FiO2 10/01/16 12:00 99.3 81 18 144/80 95 10/01/16 12:00 Room Air 10/01/16 09:27 61 10/01/16 08:00 Room Air 10/01/16 08:00 98.7 70 18 136/65 95 10/01/16 05:08 98.9 74 16 140/79 94 10/01/16 00:37 98.1 65 16 146/81 94 10/01/16 00:37 Room Air 09/30/16 22:20 Room Air 09/30/16 21:13 Room Air 09/30/16 21:13 99.3 75 16 155/77 96 09/30/16 20:02 79 I/O 09/30/16 09/30/16 09/30/16 10/01/16 10/01/16 10/01/16 06:59 14:59 22:59 06:59 14:59 22:59 Intake Total 320 ml 0 ml 0 ml Output Total 500 ml Balance -180 ml 0 ml 0 ml Intake Oral 320 ml 0 ml 0 ml Output Urine Total 500 ml # Voids 3 6 # Bowel Movements 2 2 2 Laboratory Laboratory Tests Test 10/01/16 10/01/16 06:20 12:10 White Blood Count 5.6 Red Blood Count 2.94 Hemoglobin 8.5 8.4 Hematocrit 25.4 25.1 Mean Corpuscular Volume 86.5 Mean Corpuscular Hemoglobin 28.9 Mean Corpuscular Hemoglobin 33.4 Concent Red Cell Distribution Width 16.8 Platelet Count 225 Mean Platelet Volume 8.0 Prothrombin Time 26.6 Prothromb Time International 2.3 Ratio Activated Partial 32.6 Thromboplast Time Sodium Level 142 Potassium Level 3.3 Chloride Level 106 Carbon Dioxide Level 30.7 Anion Gap 5 Blood Urea Nitrogen 4 Creatinine 0.87 Estimat Glomerular Filtration 66 Rate Random Glucose 102 Calcium Level 7.6 Albumin 1.8 Imaging Last Impressions Central Venous Line 8/7/17 0000 Signed Impressions: Service Date/Time: Friday, September 30, 2016 11:10 - CONCLUSION: Uncomplicated line placement as above. Angel Rodgers MD Chest X-Ray 09/28/16 Signed Impressions: Service Date/Time: Wednesday, September 28, 2016 11:09 - CONCLUSION: No acute cardiopulmonary abnormality is identified. Angel Perez MD Upper GI and Small Bowel X-Ray 09/27/16 Signed Impressions: Service Date/Time: Tuesday, September 27, 2016 09:42 - CONCLUSION: Large penetrating ulcer second portion of duodenum without extravasation. Delayed gastric emptying. Pee Mcclure MD FACR Abdomen/Pelvis CT 09/23/16 Signed Impressions: Service Date/Time: Friday, September 23, 2016 15:49 - CONCLUSION: 1. Basically complete resolution of previously seen abscess with a few gas bubbles and mild haziness remaining the upper abdominal mesentery. 2. Slight anasarca and bilateral pleural effusions, left lung base consolidation. Whit Bullard MD Upper Extremity Ultrasound 09/18/16 Signed Impressions: Service Date/Time: Sunday, September 18, 2016 13:11 - CONCLUSION: 1. Extensive deep venous thrombosis and superficial thrombosis left upper extremity. Pee Mcclure MD FACRADDENDUM: The above conclusion should read that there is deep venous thrombosis in the right upper extremity. Hemanth Tapia MD Lower Extremity Ultrasound 09/18/16 Signed Impressions: Service Date/Time: Sunday, September 18, 2016 16:21 - CONCLUSION: Bilateral lower extremity deep venous thrombosis with nonocclusive thrombus within the right mid superficial femoral vein and right greater saphenous vein as well as left popliteal vein and occlusive DVT within the right posterior tibial and left peroneal veins. Nahun Bray MD Abscess Drainage CT 09/15/16 Signed Impressions: Service Date/Time: Thursday, September 15, 2016 12:50 - CONCLUSION: Uncomplicated CT guided drainage, as above. Ady Jasmine MD Physical Exam HEENT: Normocephalic CHEST: respirations unlabored, diminished bases CARDIAC: RRR ABDOMEN: Soft, mild epigastric tenderness, bowel sounds present EXTREMITIES: BLE edema SKIN: Normal; no rash; no jaundice. 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 Assessment and Plan Plan ASSESSMENT: - Upper GIB, Melena in patient with large perforated duodenal ulcer. Recent hospitalization EGD/Colonoscopy (08/26/16)------> Esophagus normal, Stomach: normal, Duodenum: large ulcerations in the distal bulb extending into the descending duodenum. Multiple possibly ischemic looking ulcers. Biopsies taken. Also could be crohns ulcers. Ileum normal, at 25cm. Rectum has appearance of ileal pouch. Two biopsies taken. Pathology focally ulcerated and necrotic small intestinal mucosal biopsies exhibiting features suggestive of ischemia, distorted small intestinal mucosal biopsies with acute inflammation, clinically J pouch biopsy. Abdomen/Pelvis CTA (08/26/16)-----> I see no evidence for mesenteric ischemia. Rpt EGD (08/31/16) --> copious cheesy material in mid to distal esophagus, biopsy taken possible luis, antral gastritis, and large deep ulcer in distal bulb at 12:00 position. Ulcer in descending duodenum appears improved, looks more like typical PUD now. Pathology revealed antral mucosa with mild active chronic gastritis, esophageal mucosa with acute esophagitis containing budding yeast and pseudohyphae in the superficial keratin layers, consistent with luis esophagitis. A GMS stain performed on block #2 is positive for these fungal organisms. She was treated with Protonix, Carafate, Diflucan, Canasa, and Xifaxan. Rpt. EGD (09/14/16)----> 1. Gastritis antrum-biopsy, esophagitis distal esophagus-biopsy, duodenitis second and third portion of duodenum ulcer clean base duodenal bulb-communication with a cavitary area -looks old-biopsy, no active bleeding 2. Retroflexed views revealed a hiatal hernia. Biopsies duodenal mucosa without significant histopathologic abnormality, acute duodenitis with foveolar metaplasia and reactive epithelial changes, minimal chronic gastritis, negative for H. Pylori, esophageal distal biopsy with gastric type mucosa with severe chronic focally acute inflammation negative for intestinal metaplasia, dysplasia, or malignancy. Rpt imaging (09/14) revealed perforation along the proximal duodenum with fluid collection of contrast and air measuring 9.1 x 2.5 cm. S/P Abscess Drainage CT (09/15/16)----> Uncomplicated CT guided drainage, as above. Rpt. Abdomen/Pelvis CT (09/23/16)----> 1. Basically complete resolution of previously seen abscess with a few gas bubbles and mild haziness remaining the upper abdominal mesentery. 2. Slight anasarca and bilateral pleural effusions, left lung base consolidation. GI reconsulted for melena, drop in hgb (09/26/16) . Pt had reported dark tarry stools x 3 days. HH stable, no melena today. Upper GI and Small Bowel X-Ray 09/27/16-----> Large penetrating ulcer second portion of duodenum without extravasation. Delayed gastric emptying. Protonix gtt, Carafate, Levaquin, Flagyl, Diflucan. No further melena. - Severe anemia secondary to acute blood loss. S/P 5 units PRBC. HH .06/18.1. - Recent luis esophagitis. This was not seen on most recent endoscopy. Diflucan. PPI - Abnormal weight loss. 20 lb weight loss over 3 months. - Ulcerative colitis. Dx 1999. S/P Total Colectomy. - Leukocytosis/Fever/Lactic acid 2.7. Low grade fever overnight with T. Max 99.3. WBC 5.6 - CAROL. IMPROVED - DM, Depression/Anxiety, Hyperlipidemia. Pt tearful, states she is depressed from being in the hospital for so long- feels like she is not improving. PLAN: - Soft diet with supplements - Protonix Gtt - Carafate - Xifaxan - Cont. Flagyl, Diflucan - Monitor HH - Transfuse as necessary - Supportive care - Further recommendations to follow based on results of above - Patient seen and examined by and myself and this note is written on his behalf Marjan Doyle Oct 01, 2016 17:34
[2016-10-01] MEDS: SODIUM CHLORIDE 0.9% 10 ML VIAL IRRIGATION SCH (20:26)
[2016-10-01] MEDS: MIRTAZAPINE ODT 15 MG TAB PO SCH (20:27)
[2016-10-01] MEDS: oxyCODONE HCL ORAL CONC 20 MG/ML SYRINGE PO PRN (20:49)
[2016-10-02] VITALS (8 sets, daily range): BP systolic 130–151; BP diastolic 63–72; PULSE 57–93; RESP 18–20; TEMP 97.7–99; O2SAT 94–99
[2016-10-02] MEDS: ALPRAZolam 1 MG TAB PO PRN ×2 (01:25→17:15)
[2016-10-02] MEDS: metroNIDAZOLE 500 MG TAB PO SCH ×3 (05:22→20:10)
[2016-10-02] MEDS: SUCRALFATE 1 GM/10 ML CUP PO SCH ×4 (05:22→20:10)
[2016-10-02] MEDS: INSULIN ASPART SUPPLEMENTAL SCALE SQ SCH ×4 (06:03→20:14)
[2016-10-02 06:41] LABS: AUTOMATED NEUTROPHIL # 2.3 TH/MM3 (1.8-7.7); BASOPHIL # 0.2 TH/MM3 (0-0.2); EOSINOPHIL # 0.3 TH/MM3 (0-0.4); EOSINOPHIL % 4.5 % (0.0-4.0); HEMATOCRIT 24.8 % (35.0-46.0); LYMPH % 43.8 % (9.0-44.0); LYMPHOCYTE # 2.7 TH/MM3 (1.0-4.8); MEAN CELL VOLUME 86.8 FL (80.0-100.0); MEAN CORPUSCULAR HGB CONC 33.4 % (32.0-36.0); MONO % 11.4 % (0.0-8.0); NEUT % 37.3 % (16.0-70.0); PLATELET COUNT 196 TH/MM3 (150-450); RED BLOOD COUNT 2.86 MIL/MM3 (4.00-5.30); RED CELL DISTRIBUTION WIDTH 17.2 % (11.6-17.2); WHITE BLOOD COUNT 6.2 TH/MM3 (4.0-11.0)
[2016-10-02 06:42] LABS: HEMO FLAGS AUTO DIFF
[2016-10-02 06:46] LABS: APTT (PATIENT) 32.3 SEC (24.3-30.1); INTERNATIONAL NORMALIZED RATIO 2.4 RATIO; PROTHROMBIN TIME - PATIENT 27.8 SEC (9.8-11.6)
[2016-10-02 07:01] LABS: ANION GAP 7 MEQ/L (5-15); AST (GOT) 16 U/L (15-37); BICARBONATE 28.4 MEQ/L (21.0-32.0); BLOOD UREA NITROGEN 4 MG/DL (7-18); CHLORIDE 108 MEQ/L (98-107); GLOMERULAR FILTRATION RATE 61 ML/MIN (>89); POTASSIUM 3.3 MEQ/L (3.5-5.1); SODIUM (NA) 143 MEQ/L (136-145)
[2016-10-02 07:03] LABS: ALT (GPT) 7 U/L (10-53)
[2016-10-02 07:04] LABS: ALKALINE PHOSPHATASE 73 U/L (45-117); TOTAL BILIRUBIN ADULT 0.5 MG/DL (0.2-1.0)
[2016-10-02] MEDS ORDERED: POTASSIUM CHLORIDE 20 MEQ CONTROLLED RELEASE TAB PO ONE (07:15)
[2016-10-02 07:56] LABS: BANDS 1 % (0-6); BASOPHILS 1 % (0-2); EOSINOPHILS 5 % (0-4); POLYS (SEG NEUTROPHILS) 48 % (16-70); WBC DIFF SAMPLE 100
[2016-10-02 07:58] LABS: OVALOCYTES 1+ (NORMAL); PLATELET ESTIMATE SMEAR NORMAL (NORMAL); PLATELET MORPHOLOGY NORMAL (NORMAL); SCAN/DIFF FINAL DIFF MANUAL
[2016-10-02] MEDS: FLUoxetine HCL 20 MG CAP PO SCH (08:49)
[2016-10-02] MEDS: FLUCONAZOLE 200 MG TAB PO SCH (08:49)
[2016-10-02] MEDS: RIFAXIMIN 550 MG TAB PO SCH ×2 (08:49→20:10)
[2016-10-02] MEDS: LEVOFLOXACIN 500 MG TAB PO SCH (08:49)
[2016-10-02] MEDS: SODIUM CHLORIDE 0.9% 10 ML VIAL IRRIGATION SCH ×2 (08:50→20:14)
[2016-10-02] MEDS: SODIUM CHLORIDE 0.9% FLUSH 10 ML FLUSH IV FLUSH SCH ×2 (08:50→20:14)
[2016-10-02] MEDS: SODIUM CHLORIDE 0.9% FLUSH 10 ML FLUSH IVF SCH (08:50)
[2016-10-02] MEDS: POLYETHYLENE GLYCOL 17 GM PKG PO SCH ×2 (08:51→20:14)
[2016-10-02] MEDS: oxyCODONE HCL ORAL CONC 20 MG/ML SYRINGE PO PRN ×2 (08:57→20:13)
--- NOTE | 2016-10-02 09:32 | HHI.GIFU ---
Subjective Remarks Resting in bed. Ate 100% breakfast, some epigastric pain after eating. Remains tearful, states she is depressed because she just does not seem to be getting better. She reports that she had a dark red colored stool this am. Objective Vitals I&O Vital Signs Date Time Temp Pulse Resp B/P Pulse Ox O2 Delivery O2 Flow Rate FiO2 10/02/16 04:00 98.5 93 18 147/63 97 10/02/16 00:00 98.3 68 18 151/72 96 10/01/16 20:11 75 10/01/16 20:00 97.3 71 18 124/64 97 10/01/16 16:00 99.0 74 16 135/84 96 10/01/16 16:00 Room Air 10/01/16 12:00 99.3 81 18 144/80 95 10/01/16 12:00 Room Air 10/01/16 09:27 61 I/O 10/01/16 10/01/16 10/01/16 10/02/16 10/02/16 10/02/16 07:00 15:00 23:00 07:00 15:00 23:00 Intake Total 0 ml 360 ml 240 ml 240 ml Balance 0 ml 360 ml 240 ml 240 ml Intake Oral 0 ml 360 ml 240 ml 240 ml # Voids 6 3 2 3 # Bowel Movements 2 3 1 1 Laboratory Laboratory Tests Test 10/01/16 10/02/16 12:10 06:15 Hemoglobin 8.4 8.3 Hematocrit 25.1 24.8 White Blood Count 6.2 Red Blood Count 2.86 Mean Corpuscular Volume 86.8 Mean Corpuscular Hemoglobin 29.0 Mean Corpuscular Hemoglobin 33.4 Concent Red Cell Distribution Width 17.2 Platelet Count 196 Mean Platelet Volume 8.1 Neutrophils (%) (Auto) 37.3 Lymphocytes (%) (Auto) 43.8 Monocytes (%) (Auto) 11.4 Eosinophils (%) (Auto) 4.5 Basophils (%) (Auto) 3.0 Neutrophils # (Auto) 2.3 Lymphocytes # (Auto) 2.7 Monocytes # (Auto) 0.7 Eosinophils # (Auto) 0.3 Basophils # (Auto) 0.2 CBC Comment AUTO DIFF Differential Total Cells 100 Counted Neutrophils % (Manual) 48 Band Neutrophils % 1 Lymphocytes % 37 Monocytes % 8 Eosinophils % 5 Basophils % 1 Neutrophils # (Manual) 3.0 Differential Comment FINAL DIFF MANUAL Platelet Estimate NORMAL Platelet Morphology Comment NORMAL Ovalocytes 1+ Prothrombin Time 27.8 Prothromb Time International 2.4 Ratio Activated Partial 32.3 Thromboplast Time Sodium Level 143 Potassium Level 3.3 Chloride Level 108 Carbon Dioxide Level 28.4 Anion Gap 7 Blood Urea Nitrogen 4 Creatinine 0.93 Estimat Glomerular Filtration 61 Rate Random Glucose 104 Calcium Level 7.5 Total Bilirubin 0.5 Aspartate Amino Transf 16 (AST/SGOT) Alanine Aminotransferase 7 (ALT/SGPT) Alkaline Phosphatase 73 Total Protein 5.8 Albumin 2.0 Imaging Last Impressions Central Venous Line 09/30/16 Signed Impressions: Service Date/Time: Friday, September 30, 2016 11:10 - CONCLUSION: Uncomplicated line placement as above. Angel Rodgers MD Chest X-Ray 09/28/16 0000 Signed Impressions: Service Date/Time: Wednesday, September 28, 2016 11:09 - CONCLUSION: No acute cardiopulmonary abnormality is identified. Angel Perez MD Upper GI and Small Bowel X-Ray 09/27/16 Signed Impressions: Service Date/Time: Tuesday, September 27, 2016 09:42 - CONCLUSION: Large penetrating ulcer second portion of duodenum without extravasation. Delayed gastric emptying. Pee Mcclure MD FACR Abdomen/Pelvis CT 09/23/16 Signed Impressions: Service Date/Time: Friday, September 23, 2016 15:49 - CONCLUSION: 1. Basically complete resolution of previously seen abscess with a few gas bubbles and mild haziness remaining the upper abdominal mesentery. 2. Slight anasarca and bilateral pleural effusions, left lung base consolidation. Whit Bullard MD Upper Extremity Ultrasound 09/18/16 0000 Signed Impressions: Service Date/Time: Sunday, September 18, 2016 13:11 - CONCLUSION: 1. Extensive deep venous thrombosis and superficial thrombosis left upper extremity. Pee Mcclure MD FACRADDENDUM: The above conclusion should read that there is deep venous thrombosis in the right upper extremity. Hemanth Tapia MD Lower Extremity Ultrasound 09/18/16 0000 Signed Impressions: Service Date/Time: Sunday, September 18, 2016 16:21 - CONCLUSION: Bilateral lower extremity deep venous thrombosis with nonocclusive thrombus within the right mid superficial femoral vein and right greater saphenous vein as well as left popliteal vein and occlusive DVT within the right posterior tibial and left peroneal veins. Nahun Bray MD Abscess Drainage CT 09/15/16 0000 Signed Impressions: Service Date/Time: Thursday, September 15, 2016 12:50 - CONCLUSION: Uncomplicated CT guided drainage, as above. Ady Jasmine MD Physical Exam HEENT: Normocephalic CHEST: Respirations unlabored, diminished bases CARDIAC: RRR ABDOMEN: Soft, mild epigastric tenderness, bowel sounds present EXTREMITIES: BLE edema SKIN: Normal; no rash; no jaundice. 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 Assessment and Plan Plan ASSESSMENT: - Upper GIB, Melena in patient with large perforated duodenal ulcer. Recent hospitalization EGD/Colonoscopy (08/26/16)------> Esophagus normal, Stomach: normal, Duodenum: large ulcerations in the distal bulb extending into the descending duodenum. Multiple possibly ischemic looking ulcers. Biopsies taken. Also could be crohns ulcers. Ileum normal, at 25cm. Rectum has appearance of ileal pouch. Two biopsies taken. Pathology focally ulcerated and necrotic small intestinal mucosal biopsies exhibiting features suggestive of ischemia, distorted small intestinal mucosal biopsies with acute inflammation, clinically J pouch biopsy. Abdomen/Pelvis CTA (08/26/16)-----> I see no evidence for mesenteric ischemia. Rpt EGD (08/31/16) --> copious cheesy material in mid to distal esophagus, biopsy taken possible luis, antral gastritis, and large deep ulcer in distal bulb at 12:00 position. Ulcer in descending duodenum appears improved, looks more like typical PUD now. Pathology revealed antral mucosa with mild active chronic gastritis, esophageal mucosa with acute esophagitis containing budding yeast and pseudohyphae in the superficial keratin layers, consistent with luis esophagitis. A GMS stain performed on block #2 is positive for these fungal organisms. She was treated with Protonix, Carafate, Diflucan, Canasa, and Xifaxan. Rpt. EGD (09/14/16)----> 1. Gastritis antrum-biopsy, esophagitis distal esophagus-biopsy, duodenitis second and third portion of duodenum ulcer clean base duodenal bulb-communication with a cavitary area -looks old-biopsy, no active bleeding 2. Retroflexed views revealed a hiatal hernia. Biopsies duodenal mucosa without significant histopathologic abnormality, acute duodenitis with foveolar metaplasia and reactive epithelial changes, minimal chronic gastritis, negative for H. Pylori, esophageal distal biopsy with gastric type mucosa with severe chronic focally acute inflammation negative for intestinal metaplasia, dysplasia, or malignancy. Rpt imaging (09/14) revealed perforation along the proximal duodenum with fluid collection of contrast and air measuring 9.1 x 2.5 cm. S/P Abscess Drainage CT (09/15/16)----> Uncomplicated CT guided drainage, as above. Rpt. Abdomen/Pelvis CT (09/23/16)----> 1. Basically complete resolution of previously seen abscess with a few gas bubbles and mild haziness remaining the upper abdominal mesentery. 2. Slight anasarca and bilateral pleural effusions, left lung base consolidation. GI reconsulted for melena, drop in hgb (09/26/16) . Pt had reported dark tarry stools x 3 days. HH stable, no melena today. Upper GI and Small Bowel X-Ray 09/27/16-----> Large penetrating ulcer second portion of duodenum without extravasation. Delayed gastric emptying. Ate 100% breakfast, reports that she had a large dark red colored stool this am. HH is stable at 8.3/24.8 today. SHe is on Protonix gtt, Carafate, Levaquin, Flagyl, Diflucan. She has persistent large ulcer in her duodenum. D/W Dr. Hernández, will check gastrin level and reconsult GS for nonhealing large duodenal ulcer. - Severe anemia secondary to acute blood loss. S/P 5 units PRBC. HH 8.3/24.8 - Recent luis esophagitis. This was not seen on most recent endoscopy. Diflucan. PPI - Abnormal weight loss. 20 lb weight loss over 3 months. - Ulcerative colitis. Dx 1999. S/P Total Colectomy. - Leukocytosis/Fever/Lactic acid 2.7. T. Max 99.3 yesterday afternoon, afebrile overnight. WBC 6.2 - CAROL. IMPROVED - Bilateral DVT with nonocclusive thrombus within the right mid superficial femoral vein and right greater saphenous vein as well as left popliteal vein and occlusive DVT within the right posterior tibial and left peroneal veins. Coumadin. INR 2.4 - DM, Depression/Anxiety, Hyperlipidemia. Pt tearful, states she is depressed from being in the hospital for so long- feels like she is not improving. PLAN: - Clear liquids - Protonix Gtt - Carafate - Xifaxan - Cont. Flagyl, Diflucan, Levaquin - Gastrin level - Monitor HH q6h x 3 - Transfuse as necessary - Reconsult GS for nonhealing large duodenal ulcer - Supportive care - Further recommendations to follow based on results of above - Patient seen and examined by and myself and this note is written on his behalf Marjan Doyle Oct 02, 2016 09:32
--- NOTE | 2016-10-02 12:00 | HHI.FPPN ---
Subjective Remarks Patient seen and examined this morning. Patient was upset since a specialty signed off the other day, we explained the significance to her, which seemed to calm her down. Patient states that her abdominal pain is improved, very limited pain at this time. Patient states that she recently had a "red stool," slightly loose this morning. No lightheadedness, dizziness, fatigue, weakness. No other complaints of nausea, vomiting, fever, chills, chest pain, shortness of breath, abdominal pain, change in bowel habits, change in urinary habits. (Elliott Willingham MD R1) Objective Vitals Vital Signs Date Time Temp Pulse Resp B/P Pulse Ox O2 Delivery O2 Flow Rate FiO2 10/02/16 09:01 Room Air 10/02/16 09:01 57 10/02/16 08:00 99.0 75 20 130/63 94 10/02/16 04:00 98.5 93 18 147/63 97 10/02/16 00:00 98.3 68 18 151/72 96 10/01/16 20:11 75 10/01/16 20:00 97.3 71 18 124/64 97 10/01/16 16:00 99.0 74 16 135/84 96 10/01/16 16:00 Room Air 10/01/16 12:00 99.3 81 18 144/80 95 10/01/16 12:00 Room Air I/O 10/01/16 10/01/16 10/01/16 10/02/16 10/02/16 10/02/16 07:00 15:00 23:00 07:00 15:00 23:00 Intake Total 0 ml 360 ml 240 ml 240 ml Balance 0 ml 360 ml 240 ml 240 ml Intake Oral 0 ml 360 ml 240 ml 240 ml # Voids 6 3 2 3 # Bowel Movements 2 3 1 1 (Elliott Willingham MD R1) Result Diagram: 10/02/16 0615 10/02/16 0615 Objective Remarks GENERAL: This is an elderly female lying in bed, pleasant, tearful SKIN: . Cool and dry. HEENT: Atraumatic. Normocephalic. Pupils equal round and reactive. Extraocular motions intact. No scleral icterus. No injection or drainage. Trachea midline. CARDIOVASCULAR: Regular rate and rhythm, normal S1/2 no M/R/G RESPIRATORY: Clear to auscultation. Good air movement. No wheezes, rales, or rhonchi. GASTROINTESTINAL: Abdomen soft, mildly tender to palpation in all quadrants, improving. No guarding. Non-distended. No rebound. No masses appreciated. BS+. Bandage over right upper abdomen c/d/i. Minimal serous drainage. Wound examined , healing well. MUSCULOSKELETAL: Edema in upper and lower extremities, trace in upper extremities, 2+ in lower extremities. Mildly tender B/L. No erythema. No unilateral asymmetry. PT/DP pulses 2+ B/L NEUROLOGICAL: Awake and alert. Motor and sensory grossly within normal limits. Normal speech. ROOM: Stool examined in toilet, appeared light in color, brown, does not appear to be grossly bloody or black Procedures Central Line placement 09/26/16, removed 09/27/16, replaced on 09/30/16. Medications and IVs Current Medications Medications (Trade) Dose Ordered Sig/Ani Route Start Time Stop Time Status Last Admin (NS Flush) 2 ml UNSCH PRN IV FLUSH 09/14/16 12:30 09/19/16 14:35 (NS Flush) 2 ml BID IV FLUSH 09/14/16 21:00 10/01/16 20:27 (Zofran Inj) 4 mg Q6H PRN IV 09/14/16 12:45 09/30/16 16:52 (Xanax) 1 mg Q8H PRN PO 09/14/16 12:45 10/02/16 01:25 (PROzac) 20 mg DAILY PO 09/15/16 09:00 10/02/16 08:49 (D50w (Vial) Inj) 50 ml UNSCH PRN IV 09/14/16 12:45 (Glucagon Inj) 1 mg UNSCH PRN OTHER 09/14/16 12:45 (Morphine Inj) 4 mg Q3H PRN IV 09/14/16 22:30 09/25/16 13:55 (Narcan Inj) 0.4 mg UNSCH PRN IV 09/14/16 22:30 (NS Inj) 10 ml BID IRRIGATION 09/15/16 21:00 09/27/16 21:00 (Melatonin) 5 mg HS PRN PO 09/20/16 21:00 (Miralax) 17 gm BID PO 09/20/16 21:00 09/28/16 09:26 (Roxicodone Intensol Liq) 5 mg Q3H PRN PO 09/21/16 12:00 10/02/16 08:57 (Diflucan) 400 mg DAILY PO 09/25/16 09:00 10/02/16 08:49 (Flagyl) 500 mg Q8HR PO 09/24/16 22:00 10/02/16 05:22 Acetaminophen 650 mg 650 mg Q4H PRN PO 09/24/16 22:00 09/24/16 22:10 (Protonix Inj/NS Inj) 100 ml @ 10 mls/hr CONTINUOUS IV 09/26/16 15:00 10/01/16 06:56 (Carafate Liq) 1 gm ACHS PO 09/26/16 16:00 10/02/16 05:22 (Dulcolax Ec) 10 mg 18,21 PO 09/26/16 18:00 10/01/16 16:48 (Levaquin) 500 mg DAILY PO 09/26/16 20:00 10/02/16 08:49 (Xifaxan) 550 mg BID PO 09/27/16 21:00 10/02/16 08:49 (Remeron Soltab Odt) 15 mg HS PO 09/28/16 21:00 10/01/16 20:27 (NS Flush) DAILY IVF 10/01/16 09:00 10/02/16 08:50 Sodium Chloride UNSCH PRN IVF 09/30/16 13:15 (Coumadin Consult Pharmacy) 0 ml @ 0 mls/hr UNSCH OTHER 09/30/16 14:15 (Coumadin) 4 mg DAILY@16 PO 09/30/16 16:00 Hold 10/01/16 16:48 (Elliott Willingham MD R1) A/P Assessment and Plan This is a 60-year-old female with history of ulcerative colitis and ulcers, presents with severe anemia found to have perforated ulcer and abscess formation. Gastroenterology and colorectal surgery consulted. IR drainage completed 09/15, uncomplicated. Abscess appears resolved on CT (09/23). Patient currently on Coumadin for upper and lower extremity DVTs. Central line placed 09/26/16 due to difficulty in obtaining PIV access as well as thrombi in upstream vessels causing immediate infiltration following successful PIV insertion. Discharge Planning Discharge pending GI bleed resolution, H/H stabilization, PT evaluation, likely in the next 1-2 days. (Elliott Willingham MD R1) Attending Attestation Patient seen and examined. Case reviewed and discussed with the resident team. Agree with plan of care as discussed with me and documented in the resident note. (Claudio Lassiter MD) Problem List: (1) Perforated duodenal ulcer Status: Acute Plan: CT scan 09/14 demonstrates a perforation of the duodenum with an abnormal fluid collection with contrast anterior to the mesenteric vasculature measuring 9.12.5 cm with adjacent stranding in the mesentery. There is no free perforation into the abdominal cavity. H/H currently uptrending as of 09/29/16, 09/30/16 labs not back yet H&H stabilizing, down trending. Will recheck at Noon. Will also check Hemoccult. 09/27: Upper GI and small bowel follow through: Large penetrating ulcer second portion of duodenum without extravasation. Delayed gastric emptying. Patient has been having bowel movements, dark General surgery consulted, Dr. Cisneros signed off (09/26), appreciate recommendations -Diet regular. GI reconsulted (09/26), appreciate recommendations and interventions -Continue MiraLAX -Continue Protonix -Trend H/H -Suggests surgery reconsult for nonhealing large duodenal ulcer, reconsulted Infectious disease consulted, appreciate recommendations -Blood culture and Urine culture (09/24) no growth to date -Pt has been afebrile Medications: Levaquin 500mg po daily ( Diflucan 400mg po daily (09/25- ) Metronidazole 500mg IV Q8hrs (09/14- ) Rifaximin 550 mg PO BID (09/27-) The above to be continued for 2 weeks Zosyn 3.375 IV daily discontinued (09/15-08/26 ) Pain control: Roxycodone, IV morphine for breakthrough (2) Abscess Status: Acute Plan: CT scan 09/14 shows 9.12.5 cm fluid collection anterior to the mesenteric vasculature with adjacent stranding in the mesentery. IR drainage performed 09/[address] 09/23 "Basically complete resolution of previously seen abscess with a few gas bubbles and mild haziness remaining the upper abdominal mesentery." Drain has been removed. See ABX below (3) GI bleed Status: Acute Plan: See plan for perforated lateral ulcer above Status post 4 units packed red blood cells (4) DVT (deep venous thrombosis) Status: Acute Plan: Patient found to have numerous DVTs of the upper and lower extremities. Hematology consulted, currently signed off, appreciate recommendations: - No absolute contraindication to anticoagulation - INR 2.3 10/01/16 - Continue Coumadin 4mg po daily Imaging: Lower extremity ultrasound 09/18: Bilateral lower extremity DVTs with nonocclusive thrombus within the right mid superficial femoral vein and right greater saphenous vein as well as left popliteal vein and occlusive DVT within the right posterior tibial and left peroneal veins. Upper extremity ultrasound 09/18: Extensive DVTs and superficial thrombus is of the left upper extremity. (5) Pleural effusion Status: Acute Plan: Bilateral pleural effusions with left lung consolidation on CT - ID consulted for antibiotic optimization, see above - Pulmonary toilet, Incentive spirometer (6) Hypoalbuminemia Status: Acute Plan: Albumin low at 1.8 on 10/01 -Likely to improve as pts diet progresses -Albumin 5% 12.5 gm IV x1 -Continue to monitor -Consider additional albumin as needed -Continue to monitor (7) Depression with anxiety Status: Acute Plan: * Consulted psychiatry, appreciated recommendations * Remeron 15 mg HS started * F/U consult * Continue fluoxetine 20 mg po daily * Xanax 1 mg Q8hrs prn anxiety (8) Diabetes Status: Acute Plan: History of chronic diabetes. On insulin at home. -Low dose sliding scale while inpatient, blood sugars have been well controlled. (9) FEN Status: Acute Plan: Fluids:None, pt currently tolerating PO Electrolytes: Continue to monitor Nutrition: Regular diet DVT ppx: Coumadin to be resumed when INR is 3. GI ppx: Protonix drip (Elliott Willingham MD R1) Problem Qualifiers (1) GI bleed: Qualified Code: K29.91 - Gastrointestinal hemorrhage associated with gastroduodenitis (2) Diabetes: Qualified Code: E11.9 - Type 2 diabetes mellitus without complication, with long-term current use of insulin Elliott Willingham MD R1 Oct 02, 2016 12:00 Claudio Lassiter MD Oct 02, 2016 17:02
[2016-10-02 13:07] LABS: HEMATOCRIT 29.1 % (35.0-46.0); REVIEW FLAG FINAL
[2016-10-02] MEDS: FERROUS SULFATE 325 MG (65 MG ELEMENTAL IRON) TAB PO SCH ×2 (15:37→20:10)
[2016-10-02] MEDS: PANTOPRAZOLE INJ 80 MG in SODIUM CHLORIDE 0.9% INJ 100 ML IV SCH (15:54)
[2016-10-02] MEDS: BISACODYL EC 5 MG TABEC PO SCH ×2 (17:13→20:14)
--- NOTE | 2016-10-02 18:42 | PD.CONS ---
cc: Elliott Cisneros MD HPI Service General Surgery Consult Requested By Marjan CONNOR Reason for Consult GI bleed on Coumadin Primary Care Physician Siena Naidu MD History of Present Illness This is a 60-year-old female with a history of ulcerative colitis who came to the emergency department on September 14 after having 2 episodes of dark stool. The patient had previously been placed on Xarlto for bilateral lower extremity DVTs. During this admission the patient has had several units of packed red blood cells and she has remained hemodynamically stable. She was found to have a duodenal perforation and a Interventional Radiology drain was placed. The patient did well during hospitalization and the drain was removed. The patient was able to tolerate a regular diet and General Surgery signed off. General Surgery was reconsulted on October 02 for a lower GI bleed. The patient' s vital signs have remained stable and her hemoglobin currently is 10.1. Review of Systems Constitutional: COMPLAINS OF: Fatigue, DENIES: Chills, Change in appetite Endocrine: DENIES: Polydipsia, Polyuria, Polyphagia Eyes: DENIES: Diplopia Ears, nose, mouth, throat: DENIES: Hearing loss Respiratory: DENIES: Cough Cardiovascular: DENIES: Palpitations Gastrointestinal: COMPLAINS OF: Abdominal pain, Bloody stools, DENIES: Nausea , Vomiting Genitourinary: DENIES: Urinary frequency Musculoskeletal: DENIES: Muscle aches Integumentary: DENIES: Abnormal pigmentation Hematologic/lymphatic: DENIES: Bruising Neurologic: DENIES: Abnormal gait Psychiatric: DENIES: Confusion, Mood changes, Depression Past Family Social History Past Medical History Bipolar Hypercholesterolemia Chest pain Headache 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 Pulmonary emboli Ulcerative colitis Esophageal dilatation Tubal ligation insulin-dependent diabetes mellitus Past Surgical History Interventional radiology placed drain for duodenal perforation Right middle finger amputation Subtotal colectomy Tubal ligation Reported Medications Levemir Sarah-Colace Prednisone Carafate Protonix Humulin Fluconazole Xanax Hydrocodone Fluoxetine Rifaximin Allergies: Coded Allergies: No Known Allergies (Verified , 08/23/16) Active Ordered Medications Current Medications Medications (Trade) Dose Ordered Sig/Ani Route Start Time Stop Time Status Last Admin (NS Flush) 2 ml UNSCH PRN IV FLUSH 09/14/16 12:30 09/19/16 14:35 (NS Flush) 2 ml BID IV FLUSH 09/14/16 21:00 10/01/16 20:27 (Zofran Inj) 4 mg Q6H PRN IV 09/14/16 12:45 09/30/16 16:52 (Xanax) 1 mg Q8H PRN PO 09/14/16 12:45 10/02/16 17:15 (PROzac) 20 mg DAILY PO 09/15/16 09:00 10/02/16 08:49 (D50w (Vial) Inj) 50 ml UNSCH PRN IV 09/14/16 12:45 (Glucagon Inj) 1 mg UNSCH PRN OTHER 09/14/16 12:45 (Morphine Inj) 4 mg Q3H PRN IV 09/14/16 22:30 09/25/16 13:55 (Narcan Inj) 0.4 mg UNSCH PRN IV 09/14/16 22:30 (NS Inj) 10 ml BID IRRIGATION 09/15/16 21:00 09/27/16 21:00 (Melatonin) 5 mg HS PRN PO 09/20/16 21:00 (Miralax) 17 gm BID PO 09/20/16 21:00 09/28/16 09:26 (Roxicodone Intensol Liq) 5 mg Q3H PRN PO 09/21/16 12:00 10/02/16 08:57 (Diflucan) 400 mg DAILY PO 09/25/16 09:00 10/02/16 08:49 (Flagyl) 500 mg Q8HR PO 09/24/16 22:00 10/02/16 15:37 Acetaminophen 650 mg 650 mg Q4H PRN PO 09/24/16 22:00 09/24/16 22:10 (Protonix Inj/NS Inj) 100 ml @ 10 mls/hr CONTINUOUS IV 09/26/16 15:00 10/02/16 15:54 (Carafate Liq) 1 gm ACHS PO 09/26/16 16:00 10/02/16 17:15 (Dulcolax Ec) 10 mg 18,21 PO 09/26/16 18:00 10/01/16 16:48 (Levaquin) 500 mg DAILY PO 09/26/16 20:00 10/02/16 08:49 (Xifaxan) 550 mg BID PO 09/27/16 21:00 10/02/16 08:49 (Remeron Soltab Odt) 15 mg HS PO 09/28/16 21:00 10/01/16 20:27 (NS Flush) DAILY IVF 10/01/16 09:00 10/02/16 08:50 Sodium Chloride UNSCH PRN IVF 09/30/16 13:15 (Coumadin Consult Pharmacy) 0 ml @ 0 mls/hr UNSCH OTHER 09/30/16 14:15 (Coumadin) 4 mg DAILY@16 PO 09/30/16 16:00 Hold 10/01/16 16:48 (Ferrous Sulfate) 325 mg BID PO 10/02/16 13:30 10/02/16 15:37 Family History Noncontributory Social History Denies tobacco use Denies EtOH use Denies illicit drug use Physical Exam Vital Signs Vital Signs Date Time Temp Pulse Resp B/P Pulse Ox O2 Delivery O2 Flow Rate FiO2 10/02/16 12:00 99.0 77 20 143/67 98 10/02/16 09:01 Room Air 10/02/16 09:01 57 10/02/16 08:00 99.0 75 20 130/63 94 10/02/16 04:00 98.5 93 18 147/63 97 10/02/16 00:00 98.3 68 18 151/72 96 10/01/16 20:11 75 10/01/16 20:00 97.3 71 18 124/64 97 Physical Exam GENERAL: 60 year old female resting in bed in no acute distress SKIN: Warm and dry. HEAD: Atraumatic. Normocephalic. EYES: Pupils equal and round. No scleral icterus. No injection or drainage. ENT: No nasal bleeding or discharge. Mucous membranes pink and moist. NECK: Trachea midline. CARDIOVASCULAR: Regular rate and rhythm. RESPIRATORY: No accessory muscle use. Clear to auscultation. Breath sounds equal bilaterally. GASTROINTESTINAL: Abdomen soft, minimally tender; non distended; prior IR drain site healed. MUSCULOSKELETAL: Extremities without clubbing, cyanosis, or edema. No obvious deformities. NEUROLOGICAL: Awake and alert. No obvious cranial nerve deficits. Motor grossly within normal limits. Five out of 5 muscle strength in the arms and legs. Normal speech. PSYCHIATRIC: Appropriate mood and affect; insight and judgment normal. Laboratory Laboratory Tests Test 10/02/16 10/02/16 06:15 12:54 White Blood Count 6.2 Red Blood Count 2.86 Hemoglobin 8.3 10.1 Hematocrit 24.8 29.1 Mean Corpuscular Volume 86.8 Mean Corpuscular Hemoglobin 29.0 Mean Corpuscular Hemoglobin 33.4 Concent Red Cell Distribution Width 17.2 Platelet Count 196 Mean Platelet Volume 8.1 Neutrophils (%) (Auto) 37.3 Lymphocytes (%) (Auto) 43.8 Monocytes (%) (Auto) 11.4 Eosinophils (%) (Auto) 4.5 Basophils (%) (Auto) 3.0 Neutrophils # (Auto) 2.3 Lymphocytes # (Auto) 2.7 Monocytes # (Auto) 0.7 Eosinophils # (Auto) 0.3 Basophils # (Auto) 0.2 CBC Comment AUTO DIFF Differential Total Cells 100 Counted Neutrophils % (Manual) 48 Band Neutrophils % 1 Lymphocytes % 37 Monocytes % 8 Eosinophils % 5 Basophils % 1 Neutrophils # (Manual) 3.0 Differential Comment FINAL DIFF MANUAL Platelet Estimate NORMAL Platelet Morphology Comment NORMAL Ovalocytes 1+ Prothrombin Time 27.8 Prothromb Time International 2.4 Ratio Activated Partial 32.3 Thromboplast Time Sodium Level 143 Potassium Level 3.3 Chloride Level 108 Carbon Dioxide Level 28.4 Anion Gap 7 Blood Urea Nitrogen 4 Creatinine 0.93 Estimat Glomerular Filtration 61 Rate Random Glucose 104 Calcium Level 7.5 Total Bilirubin 0.5 Aspartate Amino Transf 16 (AST/SGOT) Alanine Aminotransferase 7 (ALT/SGPT) Alkaline Phosphatase 73 Total Protein 5.8 Albumin 2.0 Date/Time Procedure Status Source Growth 10/02/16 13:37 Stool Occult Blood ([facility]) - Final Complete Stool Stool HEMOCCULT NEGATIVE Result Diagram: 10/02/16 1254 10/02/16 0615 Imaging Last Impressions Abscess Drainage CT 09/15/16 0000 Signed Impressions: Service Date/Time: Thursday, September 15, 2016 12:50 - CONCLUSION: Uncomplicated CT guided drainage, as above. Ady Jasmine MD Abdomen/Pelvis CT 09/14/16 1802 Signed Impressions: Service Date/Time: Wednesday, September 14, 2016 22:22 - CONCLUSION: 1. Perforation along the proximal duodenum with fluid collection of contrast and air measuring 9.1 x 2.5 cm. 2. Calcified leiomyoma. 3. Mild distention of the urinary bladder. Dr. Villalba notified of these findings. Will Pink MD Assessment and Plan Assessment and Plan 60-year-old female with duodenal perforation; s/p placement of interventional radiology drain (removed); reconsult for GI bleed -Hold Coumadin -IR consult for IVC filter -Clear liquids -CBC in the morning -Vital signs currently stable; hemodynamically stable -No operative plans at this time will -I will discuss with the family medicine residents -Thank you for this consult; we will continue to follow Discussed Condition With Siena Zambrano Ms. Oct 02, 2016 18:42
[2016-10-02 19:19] LABS: HEMATOCRIT 30.5 % (35.0-46.0); REVIEW FLAG FINAL
[2016-10-02] MEDS: MIRTAZAPINE ODT 15 MG TAB PO SCH (20:10)
[2016-10-03] VITALS (8 sets, daily range): BP systolic 117–135; BP diastolic 59–81; PULSE 70–89; RESP 16–20; TEMP 98.1–98.9; O2SAT 93–97
[2016-10-03] MEDS: PANTOPRAZOLE INJ 80 MG in SODIUM CHLORIDE 0.9% INJ 100 ML IV SCH (03:05)
[2016-10-03 05:19] LABS: AUTOMATED NEUTROPHIL # 2.6 TH/MM3 (1.8-7.7); BASOPHIL # 0.1 TH/MM3 (0-0.2); BASOPHIL % 2.3 % (0.0-2.0); EOSINOPHIL # 0.4 TH/MM3 (0-0.4); HEMATOCRIT 27.3 % (35.0-46.0); HEMO FLAGS DIFF FINAL; LYMPH % 38.8 % (9.0-44.0); LYMPHOCYTE # 2.4 TH/MM3 (1.0-4.8); MEAN CELL VOLUME 87.1 FL (80.0-100.0); MEAN CORPUSCULAR HGB CONC 32.2 % (32.0-36.0); NEUT % 42.9 % (16.0-70.0); PLATELET COUNT 213 TH/MM3 (150-450); RED BLOOD COUNT 3.13 MIL/MM3 (4.00-5.30); WHITE BLOOD COUNT 6.1 TH/MM3 (4.0-11.0)
[2016-10-03 05:39] LABS: APTT (PATIENT) 32.6 SEC (24.3-30.1); INTERNATIONAL NORMALIZED RATIO 2.6 RATIO; PROTHROMBIN TIME - PATIENT 30.5 SEC (9.8-11.6)
[2016-10-03 05:51] LABS: ALT (GPT) 6 U/L (10-53); ANION GAP 7 MEQ/L (5-15); AST (GOT) 15 U/L (15-37); BICARBONATE 28.2 MEQ/L (21.0-32.0); BLOOD UREA NITROGEN 3 MG/DL (7-18); CHLORIDE 106 MEQ/L (98-107); GLOMERULAR FILTRATION RATE 57 ML/MIN (>89); POTASSIUM 3.5 MEQ/L (3.5-5.1); SODIUM (NA) 141 MEQ/L (136-145)
[2016-10-03 05:54] LABS: ALKALINE PHOSPHATASE 73 U/L (45-117); TOTAL BILIRUBIN ADULT 0.5 MG/DL (0.2-1.0)
[2016-10-03] MEDS: INSULIN ASPART SUPPLEMENTAL SCALE SQ SCH ×4 (06:03→20:29)
[2016-10-03] MEDS: metroNIDAZOLE 500 MG TAB PO SCH ×3 (06:04→20:27)
[2016-10-03] MEDS: SUCRALFATE 1 GM/10 ML CUP PO SCH ×3 (06:04→20:27)
[2016-10-03] MEDS: RIFAXIMIN 550 MG TAB PO SCH ×2 (08:35→20:27)
[2016-10-03] MEDS: SODIUM CHLORIDE 0.9% FLUSH 10 ML FLUSH IV FLUSH SCH ×2 (08:35→20:28)
[2016-10-03] MEDS: LEVOFLOXACIN 500 MG TAB PO SCH (08:36)
[2016-10-03] MEDS: FERROUS SULFATE 325 MG (65 MG ELEMENTAL IRON) TAB PO SCH ×2 (08:37→20:27)
[2016-10-03] MEDS: FLUCONAZOLE 200 MG TAB PO SCH (08:37)
[2016-10-03] MEDS: SODIUM CHLORIDE 0.9% FLUSH 10 ML FLUSH IVF SCH (08:37)
[2016-10-03] MEDS: SODIUM CHLORIDE 0.9% 10 ML VIAL IRRIGATION SCH ×2 (08:37→20:29)
[2016-10-03] MEDS: FLUoxetine HCL 20 MG CAP PO SCH (08:37)
[2016-10-03] MEDS: POLYETHYLENE GLYCOL 17 GM PKG PO SCH ×2 (08:37→20:28)
--- NOTE | 2016-10-03 10:24 | HHI.FPPN ---
Subjective Remarks Pt seen and examined this morning. No acute events overnight. AFVSS. Pt denies blood in her stools. Hemoccult negative. She denies chest pain, shortness fo breath. Abdominal pain is stable, she reports that it has been improving. Lower extremity edema is stable. Patient has no other acute concerns. (Zak Weiss MD R3) Objective Vitals Vital Signs Date Time Temp Pulse Resp B/P Pulse Ox O2 Delivery O2 Flow Rate FiO2 10/03/16 08:00 98.2 70 20 135/75 94 10/03/16 04:00 Room Air 10/03/16 04:00 98.6 89 18 126/81 94 10/03/16 00:00 98.4 82 16 133/67 97 10/03/16 00:00 Room Air 10/02/16 21:37 18 10/02/16 20:10 Room Air 10/02/16 20:00 98.1 79 18 132/65 98 10/02/16 19:45 76 10/02/16 16:00 97.7 79 18 136/67 99 10/02/16 12:00 99.0 77 20 143/67 98 I/O 10/02/16 10/02/16 10/02/16 10/03/16 10/03/16 10/03/16 07:00 15:00 23:00 07:00 15:00 23:00 Intake Total 240 ml 600 ml 282 ml 362 ml Balance 240 ml 600 ml 282 ml 362 ml Intake Oral 240 ml 600 ml 240 ml 240 ml IV Total 42 ml 122 ml # Voids 3 3 3 2 # Bowel Movements 1 1 2 1 (Zak Weiss MD R3) Result Diagram: 10/03/16 0510 10/03/16 0510 Objective Remarks GENERAL: This is an elderly female lying in bed, pleasant, tearful SKIN: Cool and dry. HEENT: Atraumatic. Normocephalic. Pupils equal round and reactive. Extraocular motions intact. No scleral icterus. No injection or drainage. Trachea midline. CARDIOVASCULAR: Regular rate and rhythm, normal S1/2 no M/R/G RESPIRATORY: Clear to auscultation. Good air movement. No wheezes, rales, or rhonchi. GASTROINTESTINAL: Abdomen soft, non-tender, improving. No guarding. Non- distended. No rebound. No masses appreciated. BS+. Bandage over right upper abdomen c/d/i. Wound examined, healing well. MUSCULOSKELETAL: Edema in upper and lower extremities, trace in upper extremities, 2+ in lower extremities. Mildly tender B/L. No erythema. No unilateral asymmetry. PT/DP pulses 2+ B/L NEUROLOGICAL: Awake and alert. Motor and sensory grossly within normal limits. Normal speech. Procedures Central Line placement 09/26/16, removed 09/27/16, replaced on 09/30/16. (Zak Weiss MD R3) A/P Assessment and Plan This is a 60-year-old female with history of ulcerative colitis and ulcers, presents with severe anemia found to have perforated ulcer and abscess formation. Gastroenterology and colorectal surgery consulted. IR drainage completed 09/15, uncomplicated. Abscess appears resolved on CT (09/23). Patient currently on Coumadin for upper and lower extremity DVTs. Central line placed 09/26/16 due to difficulty in obtaining PIV access as well as thrombi in upstream vessels causing immediate infiltration following successful PIV insertion. Discharge Planning Discharge pending GI clearance, No evidence of bleeding at this time. Likely later today or tomorrow. (Zak Weiss MD R3) Attending Attestation Patient seen and examined. Case reviewed and discussed with the resident team. Agree with plan of care as discussed with me and documented in the resident note. (Claudio Lassiter MD) Problem List: (1) Perforated duodenal ulcer Status: Acute Plan: CT scan 09/14 demonstrates a perforation of the duodenum with an abnormal fluid collection with contrast anterior to the mesenteric vasculature measuring 9.12.5 cm with adjacent stranding in the mesentery. There is no free perforation into the abdominal cavity. H/H currently uptrending as of 09/29/16, 09/30/16 labs not back yet H&H stable. Will recheck at Noon. Hemoccult negative. 09/27: Upper GI and small bowel follow through: Large penetrating ulcer second portion of duodenum without extravasation. Delayed gastric emptying. General surgery consulted, Dr. Cisneros signed off (09/26), appreciate recommendations -Diet regular. GI consulted, appreciate recommendations and interventions -Continue MiraLAX -Continue Protonix -Monitor H/H -Gen. surgery was re-consulted due to concern for possible rebleeding as H& Hs were downtrending General surgery reconsulted, appreciate recommendations -Coumadin was held for 1 day due to concern for bleeding -We'll hold off on IVC filter placement, per prior hematology recs -No signs of acute bleeding Infectious disease consulted, appreciate recommendations -Blood culture and Urine culture (09/24) no growth to date -Pt has been afebrile Medications: Levaquin 500mg po daily ( Diflucan 400mg po daily (09/25- ) Metronidazole 500mg IV Q8hrs (09/14- ) The above to be continued for 2 weeks Rifaximin 550 mg PO BID (09/27-) Zosyn 3.375 IV daily discontinued (09/15-08/26 ) Pain control: Roxycodone, IV morphine for breakthrough (2) Abscess Status: Acute Plan: CT scan 09/14 shows 9.12.5 cm fluid collection anterior to the mesenteric vasculature with adjacent stranding in the mesentery. IR drainage performed 09/[address] 09/23 "Basically complete resolution of previously seen abscess with a few gas bubbles and mild haziness remaining the upper abdominal mesentery." Drain has been removed. See ABX below (3) GI bleed Status: Resolved Plan: Resolved See plan for perforated lateral ulcer above Status post 4 units packed red blood cells (4) DVT (deep venous thrombosis) Status: Acute Plan: Patient found to have numerous DVTs of the upper and lower extremities. Hematology consulted, currently signed off, appreciate recommendations: - No absolute contraindication to anticoagulation - INR 2.6 10/03/16 - Continue Coumadin 4mg po daily, held on 10/02 due to concern for acute bleeding Imaging: Lower extremity ultrasound 09/18: Bilateral lower extremity DVTs with nonocclusive thrombus within the right mid superficial femoral vein and right greater saphenous vein as well as left popliteal vein and occlusive DVT within the right posterior tibial and left peroneal veins. Upper extremity ultrasound 09/18: Extensive DVTs and superficial thrombus is of the left upper extremity. (5) Pleural effusion Status: Acute Plan: Bilateral pleural effusions with left lung consolidation on CT - ID consulted for antibiotic optimization, see above - Pulmonary toilet, Incentive spirometer (6) Hypoalbuminemia Status: Acute Plan: Albumin low at 2.1 on 10/03 -Likely to improve as pts diet progresses -Albumin 5% 12.5 gm IV x1 today -Continue to monitor -Consider additional albumin as needed -Continue to monitor (7) Depression with anxiety Status: Acute Plan: * Consulted psychiatry, appreciated recommendations * Remeron 15 mg HS * F/U consult * Continue fluoxetine 20 mg po daily * Xanax 1 mg Q8hrs prn anxiety (8) Diabetes Status: Acute Plan: History of chronic diabetes. On insulin at home. -Low dose sliding scale while inpatient, blood sugars have been well controlled. (9) FEN Status: Acute Plan: Fluids:None, pt currently tolerating PO Electrolytes: Continue to monitor Nutrition: Clear diet, consider advancing DVT ppx: Coumadin GI ppx: Protonix drip (Zak Weiss MD R3) Problem Qualifiers (1) GI bleed: Qualified Code: K29.91 - Gastrointestinal hemorrhage associated with gastroduodenitis (2) Diabetes: Qualified Code: E11.9 - Type 2 diabetes mellitus without complication, with long-term current use of insulin Zak Weiss MD R3 Oct 03, 2016 10:23 Claudio Lassiter MD Oct 03, 2016 11:33
[2016-10-03] MEDS: ALPRAZolam 1 MG TAB PO PRN (10:32)
[2016-10-03] MEDS ORDERED: ALBUMIN HUMAN 5% 12.5 GM/250 ML BOTTLE IV ONE (11:30)
[2016-10-03] MEDS: oxyCODONE HCL ORAL CONC 20 MG/ML SYRINGE PO PRN (14:00)
[2016-10-03] MEDS ORDERED: PHYTONADIONE 10 MG/ML VIAL SQ ONE (15:15)
--- NOTE | 2016-10-03 15:17 | PD.ONC.PN ---
Subjective Subjective Remarks Afebrile overnight. Patient reporting melanotic stools yesterday and today. No other complaints. Objective Data Date Time Temp Pulse Resp B/P Pulse Ox O2 Delivery O2 Flow Rate FiO2 10/03/16 12:00 98.9 82 20 124/71 93 10/03/16 09:30 99 Room Air 10/03/16 08:00 98.2 70 20 135/75 94 10/03/16 04:00 Room Air 10/03/16 04:00 98.6 89 18 126/81 94 10/03/16 00:00 98.4 82 16 133/67 97 10/03/16 00:00 Room Air 10/02/16 21:37 18 10/02/16 20:10 Room Air 10/02/16 20:00 98.1 79 18 132/65 98 10/02/16 19:45 76 10/02/16 16:00 97.7 79 18 136/67 99 10/03/16 10/03/16 10/03/16 06:59 14:59 22:59 Intake Total 362 ml Balance 362 ml Result Diagram: 10/03/16 0510 10/03/16 0510 Laboratory Results Laboratory Tests Test 10/02/16 10/03/16 18:40 05:10 Hemoglobin 10.1 GM/DL 8.8 GM/DL Hematocrit 30.5 % 27.3 % White Blood Count 6.1 TH/MM3 Red Blood Count 3.13 MIL/MM3 Mean Corpuscular Volume 87.1 FL Mean Corpuscular Hemoglobin 28.0 PG Mean Corpuscular Hemoglobin 32.2 % Concent Red Cell Distribution Width 17.0 % Platelet Count 213 TH/MM3 Mean Platelet Volume 7.5 FL Neutrophils (%) (Auto) 42.9 % Lymphocytes (%) (Auto) 38.8 % Monocytes (%) (Auto) 10.0 % Eosinophils (%) (Auto) 6.0 % Basophils (%) (Auto) 2.3 % Neutrophils # (Auto) 2.6 TH/MM3 Lymphocytes # (Auto) 2.4 TH/MM3 Monocytes # (Auto) 0.6 TH/MM3 Eosinophils # (Auto) 0.4 TH/MM3 Basophils # (Auto) 0.1 TH/MM3 CBC Comment DIFF FINAL Differential Comment Prothrombin Time 30.5 SEC Prothromb Time International 2.6 RATIO Ratio Activated Partial 32.6 SEC Thromboplast Time Sodium Level 141 MEQ/L Potassium Level 3.5 MEQ/L Chloride Level 106 MEQ/L Carbon Dioxide Level 28.2 MEQ/L Anion Gap 7 MEQ/L Blood Urea Nitrogen 3 MG/DL Creatinine 0.99 MG/DL Estimat Glomerular Filtration 57 ML/MIN Rate Random Glucose 108 MG/DL Calcium Level 7.8 MG/DL Total Bilirubin 0.5 MG/DL Aspartate Amino Transf 15 U/L (AST/SGOT) Alanine Aminotransferase 6 U/L (ALT/SGPT) Alkaline Phosphatase 73 U/L Total Protein 6.2 GM/DL Albumin 2.1 GM/DL Culture Results Microbiology Date/Time Procedure Status Source Growth 10/02/16 13:37 Stool Occult Blood ([facility]) - Final Complete Stool Stool HEMOCCULT NEGATIVE Administered Medications Medications (Trade) Dose Ordered Sig/Ani Route PRN Reason Start Time Stop Time Status Last Admin Dose Admin Sodium Chloride (NS Flush) 2 ml UNSCH PRN IV FLUSH FLUSH AFTER USING IV ACCESS 09/14/16 12:30 09/19/16 14:35 Sodium Chloride (NS Flush) 2 ml BID IV FLUSH 09/14/16 21:00 10/03/16 08:35 Ondansetron HCl (Zofran Inj) 4 mg Q6H PRN IV NAUSEA 09/14/16 12:45 09/30/16 16:52 Alprazolam (Xanax) 1 mg Q8H PRN PO ANXIETY 09/14/16 12:45 10/03/16 10:32 Fluoxetine HCl (PROzac) 20 mg DAILY PO 09/15/16 09:00 10/03/16 08:37 Morphine Sulfate (Morphine Inj) 4 mg Q3H PRN IV BREAKTHROUGH PAIN 09/14/16 22:30 09/25/16 13:55 Sodium Chloride (NS Inj) 10 ml BID IRRIGATION 09/15/16 21:00 10/03/16 08:37 Polyethylene Glycol (Miralax) 17 gm BID PO 09/20/16 21:00 09/28/16 09:26 Oxycodone HCl (Roxicodone Intensol Liq) 5 mg Q3H PRN PO PAIN SCALE 5 TO 10 09/21/16 12:00 10/02/16 20:13 Fluconazole (Diflucan) 400 mg DAILY PO 09/25/16 09:00 10/03/16 08:37 Metronidazole (Flagyl) 500 mg Q8HR PO 09/24/16 22:00 10/03/16 14:00 Acetaminophen 650 mg 650 mg Q4H PRN PO FEVER 09/24/16 22:00 09/24/16 22:10 Pantoprazole Sodium/Sodium Chloride (Protonix Inj/NS Inj) 100 ml @ 10 mls/hr CONTINUOUS IV 09/26/16 15:00 10/03/16 03:05 Sucralfate (Carafate Liq) 1 gm ACHS PO 09/26/16 16:00 10/03/16 11:00 Bisacodyl (Dulcolax Ec) 10 mg 18,21 PO 09/26/16 18:00 10/01/16 16:48 Levofloxacin (Levaquin) 500 mg DAILY PO 09/26/16 20:00 10/03/16 08:36 Rifaximin (Xifaxan) 550 mg BID PO 09/27/16 21:00 10/03/16 08:35 Mirtazapine (Remeron Soltab Odt) 15 mg HS PO 09/28/16 21:00 10/02/16 20:10 Sodium Chloride (NS Flush) DAILY IVF 10/01/16 09:00 10/03/16 08:37 Ferrous Sulfate (Ferrous Sulfate) 325 mg BID PO 10/02/16 13:30 10/03/16 08:37 Objective Remarks GENERAL: Middle aged female upright in bed, sister at bedside. SKIN: Warm and dry. HEAD: Normocephalic. EYES: No scleral icterus. No injection or drainage. NECK: Supple, trachea midline. CARDIOVASCULAR: Regular rate and rhythm RESPIRATORY: Breath sounds equal bilaterally. No accessory muscle use. GASTROINTESTINAL: Abdomen soft, non-tender, nondistended. EXTREMITIES: No cyanosis NEUROLOGICAL: No obvious focal deficit. Awake, alert, and oriented x3. Assessment/Plan Problem List: (1) DVT (deep venous thrombosis) Status: Acute Plan: 10/03: coumadin stopped. IVC filter ordered in IR for GIB (2) GI bleed Status: Resolved Plan: --presented to the emergency room with two episodes of dark stool on . --CT ab/pelvis showed perforation of the proximal duodenum with fluid collection and contrast measuring 9.1 x 2.5 cm. Assessment 60y/o female with bilateral upper extremity and lower extremity deep vein thromboses + GI bleed from a duodenal ulcer. --presented to the emergency room with two episodes of dark stool on 2016. --CT ab/pelvis showed perforation of the proximal duodenum with fluid collection and contrast measuring 9.1 x 2.5 cm. Plan 1. consult invasive radiology for IVC filter as patient now has contraindication to anticoagulation (active GI bleeding) 2. stop coumadin d/w patient, patient's sister, patient's niece by phone, GEETA Marquez w/ GI, Dr. Branch Attending Statement The exam, history, and the medical decision-making described in the above note were completed with the assistance of the mid-level provider. I reviewed and agree with the findings presented. I attest that I had a [id number] encounter with the patient on the same day, and personally performed and documented my assessment and findings in the medical record. Pt seen and examined. Events noted. Discussed w/ Dr. Cisneros. Ischemic ulcer, difficult to heal and no plans for surgical intervention at present, conservative course recommended. Pt has decrease hgb on anticoagulation, suspected re bleeding. Discussed w/ pt and friend risk and benefits of IVC filter placement. Currently contraindication to anticoagulation. Pt at increase risk for rebleeding- as she has had rebleed already. Unable to anticoagulate. Problem Qualifiers (1) GI bleed: Qualified Code: K29.91 - Gastrointestinal hemorrhage associated with gastroduodenitis Talita Issa Oct 03, 2016 15:17 Tesha Branch MD Oct 03, 2016 18:38
--- NOTE | 2016-10-03 16:33 | HHI.PR ---
Subjective Subjective Notes Resting in bed Tearful Sister at bedside Objective Vitals/I&O Vital Signs Date Time Temp Pulse Resp B/P Pulse Ox O2 Delivery O2 Flow Rate FiO2 10/03/16 12:00 98.9 82 20 124/71 93 10/03/16 09:30 Room Air Labs Laboratory Tests Test 10/02/16 10/03/16 18:40 05:10 Hemoglobin 10.1 8.8 Hematocrit 30.5 27.3 White Blood Count 6.1 Red Blood Count 3.13 Mean Corpuscular Volume 87.1 Mean Corpuscular Hemoglobin 28.0 Mean Corpuscular Hemoglobin 32.2 Concent Red Cell Distribution Width 17.0 Platelet Count 213 Mean Platelet Volume 7.5 Neutrophils (%) (Auto) 42.9 Lymphocytes (%) (Auto) 38.8 Monocytes (%) (Auto) 10.0 Eosinophils (%) (Auto) 6.0 Basophils (%) (Auto) 2.3 Neutrophils # (Auto) 2.6 Lymphocytes # (Auto) 2.4 Monocytes # (Auto) 0.6 Eosinophils # (Auto) 0.4 Basophils # (Auto) 0.1 CBC Comment DIFF FINAL Differential Comment Prothrombin Time 30.5 Prothromb Time International 2.6 Ratio Activated Partial 32.6 Thromboplast Time Sodium Level 141 Potassium Level 3.5 Chloride Level 106 Carbon Dioxide Level 28.2 Anion Gap 7 Blood Urea Nitrogen 3 Creatinine 0.99 Estimat Glomerular Filtration 57 Rate Random Glucose 108 Calcium Level 7.8 Total Bilirubin 0.5 Aspartate Amino Transf 15 (AST/SGOT) Alanine Aminotransferase 6 (ALT/SGPT) Alkaline Phosphatase 73 Total Protein 6.2 Albumin 2.1 Date/Time Procedure Status Source Growth 10/02/16 13:37 Stool Occult Blood ([facility]) - Final Complete Stool Stool HEMOCCULT NEGATIVE Radiology Last Impressions Abscess Drainage CT 09/15/16 0000 Signed Impressions: Service Date/Time: Thursday, September 15, 2016 12:50 - CONCLUSION: Uncomplicated CT guided drainage, as above. Ady Jasmine MD Abdomen/Pelvis CT 09/14/16 1802 Signed Impressions: Service Date/Time: Wednesday, September 14, 2016 22:22 - CONCLUSION: 1. Perforation along the proximal duodenum with fluid collection of contrast and air measuring 9.1 x 2.5 cm. 2. Calcified leiomyoma. 3. Mild distention of the urinary bladder. Dr. Villalba notified of these findings. Will Pink MD Cardiovascular: Regular Lungs: Clear Abdomen: Non-distended, Non-tender Extremities: Other (BLE edema ) A/P Assessment and Plan 60-year-old female with duodenal perforation; s/p placement of interventional radiology drain (removed); reconsult for GI bleed -Hold Coumadin -Vit K and FFP for IVC placement -IR consult for IVC filter -Clear liquids -Monitor CBC -Vital signs currently stable; hemodynamically stable -No operative plans at this time will -I will discussed with Dr. Weiss Attending Note - Dr. Cisneros Discussed with Dr. Branch; given the NEW bleeding while on coumadin, anticoagulation now contraindicated. Ok to place IVC filter and hold anticoagulation Discussed with Dr. Hernández and pt.(as well as her sister) as well; given recent perforation, surgery is very hazardous with concurrent DVT. Will reassess in 2-3 months, and if ulcer still not healing, can consider surgical correction. The exam, history, and the medical decision-making described in the above note were completed with the assistance of the mid-level provider. I reviewed and agree with the findings presented. I attest that I had a [id number] encounter with the patient on the same day, and personally performed and documented my assessment and findings in the medical record. Siena Brooks Oct 03, 2016 16:33 Elliott Cisneros MD Oct 04, 2016 18:29
--- NOTE | 2016-10-03 16:36 | HHI.GIFU ---
Subjective Remarks Pt resting in bed, visiting with friend. Says she is a nervous wreck about being in hospital. No longer having maroon stool but says they are dark. Objective Vitals I&O Vital Signs Date Time Temp Pulse Resp B/P Pulse Ox O2 Delivery O2 Flow Rate FiO2 10/03/16 12:00 98.9 82 20 124/71 93 10/03/16 09:30 99 Room Air 10/03/16 08:00 98.2 70 20 135/75 94 10/03/16 04:00 Room Air 10/03/16 04:00 98.6 89 18 126/81 94 10/03/16 00:00 98.4 82 16 133/67 97 10/03/16 00:00 Room Air 10/02/16 21:37 18 10/02/16 20:10 Room Air 10/02/16 20:00 98.1 79 18 132/65 98 10/02/16 19:45 76 I/O 10/02/16 10/02/16 10/02/16 10/03/16 10/03/16 10/03/16 07:00 15:00 23:00 07:00 15:00 23:00 Intake Total 240 ml 600 ml 282 ml 362 ml Balance 240 ml 600 ml 282 ml 362 ml Intake Oral 240 ml 600 ml 240 ml 240 ml IV Total 42 ml 122 ml # Voids 3 3 3 2 3 # Bowel Movements 1 1 2 1 4 Laboratory Laboratory Tests Test 10/02/16 10/03/16 18:40 05:10 Hemoglobin 10.1 8.8 Hematocrit 30.5 27.3 White Blood Count 6.1 Red Blood Count 3.13 Mean Corpuscular Volume 87.1 Mean Corpuscular Hemoglobin 28.0 Mean Corpuscular Hemoglobin 32.2 Concent Red Cell Distribution Width 17.0 Platelet Count 213 Mean Platelet Volume 7.5 Neutrophils (%) (Auto) 42.9 Lymphocytes (%) (Auto) 38.8 Monocytes (%) (Auto) 10.0 Eosinophils (%) (Auto) 6.0 Basophils (%) (Auto) 2.3 Neutrophils # (Auto) 2.6 Lymphocytes # (Auto) 2.4 Monocytes # (Auto) 0.6 Eosinophils # (Auto) 0.4 Basophils # (Auto) 0.1 CBC Comment DIFF FINAL Differential Comment Prothrombin Time 30.5 Prothromb Time International 2.6 Ratio Activated Partial 32.6 Thromboplast Time Sodium Level 141 Potassium Level 3.5 Chloride Level 106 Carbon Dioxide Level 28.2 Anion Gap 7 Blood Urea Nitrogen 3 Creatinine 0.99 Estimat Glomerular Filtration 57 Rate Random Glucose 108 Calcium Level 7.8 Total Bilirubin 0.5 Aspartate Amino Transf 15 (AST/SGOT) Alanine Aminotransferase 6 (ALT/SGPT) Alkaline Phosphatase 73 Total Protein 6.2 Albumin 2.1 Date/Time Procedure Status Source Growth 10/02/16 13:37 Stool Occult Blood ([facility]) - Final Complete Stool Stool HEMOCCULT NEGATIVE Physical Exam HEENT: Normocephalic CHEST: Respirations unlabored, diminished bases CARDIAC: RRR ABDOMEN: Soft, mild epigastric tenderness, bowel sounds present EXTREMITIES: BLE edema SKIN: Normal; no rash; no jaundice. 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 Assessment and Plan Plan ASSESSMENT: - Upper GIB, Melena in patient with large perforated duodenal ulcer. Recent hospitalization EGD/Colonoscopy (08/26/16)------> Esophagus normal, Stomach: normal, Duodenum: large ulcerations in the distal bulb extending into the descending duodenum. Multiple possibly ischemic looking ulcers. Biopsies taken. Also could be crohns ulcers. Ileum normal, at 25cm. Rectum has appearance of ileal pouch. Two biopsies taken. Pathology focally ulcerated and necrotic small intestinal mucosal biopsies exhibiting features suggestive of ischemia, distorted small intestinal mucosal biopsies with acute inflammation, clinically J pouch biopsy. Abdomen/Pelvis CTA (08/26/16)-----> I see no evidence for mesenteric ischemia. Rpt EGD (08/31/16) --> copious cheesy material in mid to distal esophagus, biopsy taken possible luis, antral gastritis, and large deep ulcer in distal bulb at 12:00 position. Ulcer in descending duodenum appears improved, looks more like typical PUD now. Pathology revealed antral mucosa with mild active chronic gastritis, esophageal mucosa with acute esophagitis containing budding yeast and pseudohyphae in the superficial keratin layers, consistent with luis esophagitis. A GMS stain performed on block #2 is positive for these fungal organisms. She was treated with Protonix, Carafate, Diflucan, Canasa, and Xifaxan. Rpt. EGD (09/14/16)----> 1. Gastritis antrum-biopsy, esophagitis distal esophagus-biopsy, duodenitis second and third portion of duodenum ulcer clean base duodenal bulb-communication with a cavitary area -looks old-biopsy, no active bleeding 2. Retroflexed views revealed a hiatal hernia. Biopsies duodenal mucosa without significant histopathologic abnormality, acute duodenitis with foveolar metaplasia and reactive epithelial changes, minimal chronic gastritis, negative for H. Pylori, esophageal distal biopsy with gastric type mucosa with severe chronic focally acute inflammation negative for intestinal metaplasia, dysplasia, or malignancy. Rpt imaging (09/14) revealed perforation along the proximal duodenum with fluid collection of contrast and air measuring 9.1 x 2.5 cm. S/P Abscess Drainage CT (09/15/16)----> Uncomplicated CT guided drainage, as above. Rpt. Abdomen/Pelvis CT (09/23/16)----> 1. Basically complete resolution of previously seen abscess with a few gas bubbles and mild haziness remaining the upper abdominal mesentery. 2. Slight anasarca and bilateral pleural effusions, left lung base consolidation. GI reconsulted for melena, drop in hgb (09/26/16) . Pt had reported dark tarry stools x 3 days. HH stable, no melena today. Upper GI and Small Bowel X-Ray 09/27/16-----> Large penetrating ulcer second portion of duodenum without extravasation. Delayed gastric emptying. Ate 100% breakfast, reports that she had a large dark red colored stool this am. HH is stable at 8.3/24.8 today. SHe is on Protonix gtt, Carafate, Levaquin, Flagyl, Diflucan. She has persistent large ulcer in her duodenum. Gastrin level 125H. - Severe anemia secondary to acute blood loss. S/P 5 units PRBC. Hgb stable - Recent luis esophagitis. This was not seen on most recent endoscopy. Diflucan. PPI - Abnormal weight loss. 20 lb weight loss over 3 months. - Ulcerative colitis. Dx 1999. S/P Total Colectomy. - Leukocytosis/Fever/Lactic acid 2.7. T. improved - CAROL. IMPROVED - Bilateral DVT with nonocclusive thrombus within the right mid superficial femoral vein and right greater saphenous vein as well as left popliteal vein and occlusive DVT within the right posterior tibial and left peroneal veins. Coumadin. INR 2.6 - DM, Depression/Anxiety, Hyperlipidemia. Pt anxious about progress PLAN: - await IR consult for IVC - EGD 2-3months, then possibly surgery - Clear liquids - Protonix Gtt - Carafate - Xifaxan - Cont. Flagyl, Diflucan, Levaquin - Monitor HH q6h x 3 - Transfuse as necessary - Supportive care - Further recommendations to follow based on results of above - Patient seen and examined by and myself and this note is written on his behalf Sandra Valerio Oct 03, 2016 16:35
[2016-10-03 18:58] LABS: HEMATOCRIT 27.9 % (35.0-46.0); REVIEW FLAG FINAL
[2016-10-03] MEDS: MIRTAZAPINE ODT 15 MG TAB PO SCH (20:27)
[2016-10-03] MEDS: BISACODYL EC 5 MG TABEC PO SCH (20:29)
[2016-10-04] VITALS (12 sets, daily range): BP systolic 121–149; BP diastolic 60–78; PULSE 70–90; RESP 16–20; TEMP 97.9–99.3; O2SAT 93–98
[2016-10-04] MEDS: metroNIDAZOLE 500 MG TAB PO SCH ×3 (05:30→21:12)
[2016-10-04] MEDS: SUCRALFATE 1 GM/10 ML CUP PO SCH ×4 (05:30→21:12)
[2016-10-04 05:49] LABS: AUTOMATED NEUTROPHIL # 2.8 TH/MM3 (1.8-7.7); BASOPHIL # 0.2 TH/MM3 (0-0.2); EOSINOPHIL # 0.4 TH/MM3 (0-0.4); EOSINOPHIL % 6.2 % (0.0-4.0); HEMATOCRIT 27.4 % (35.0-46.0); HEMO FLAGS DIFF FINAL; LYMPH % 39.4 % (9.0-44.0); LYMPHOCYTE # 2.5 TH/MM3 (1.0-4.8); MEAN CELL VOLUME 88.7 FL (80.0-100.0); MEAN CORPUSCULAR HEMOGLOBIN 28.6 PG (27.0-34.0); MEAN CORPUSCULAR HGB CONC 32.2 % (32.0-36.0); MONO % 8.1 % (0.0-8.0); NEUT % 43.3 % (16.0-70.0); PLATELET COUNT 211 TH/MM3 (150-450); RED BLOOD COUNT 3.09 MIL/MM3 (4.00-5.30); RED CELL DISTRIBUTION WIDTH 17.2 % (11.6-17.2); WHITE BLOOD COUNT 6.5 TH/MM3 (4.0-11.0)
[2016-10-04] MEDS: INSULIN ASPART SUPPLEMENTAL SCALE SQ SCH ×4 (06:05→21:00)
[2016-10-04 06:06] LABS: BICARBONATE 27.6 MEQ/L (21.0-32.0); POTASSIUM 3.4 MEQ/L (3.5-5.1)
[2016-10-04 06:44] LABS: APTT (PATIENT) 29.3 SEC (24.3-30.1); INTERNATIONAL NORMALIZED RATIO 1.6 RATIO; PROTHROMBIN TIME - PATIENT 18.6 SEC (9.8-11.6)
[2016-10-04] MEDS ORDERED: POTASSIUM CHLORIDE 20 MEQ CONTROLLED RELEASE TAB PO ONE (07:30)
[2016-10-04] MEDS: FLUCONAZOLE 200 MG TAB PO SCH (08:34)
[2016-10-04] MEDS: FERROUS SULFATE 325 MG (65 MG ELEMENTAL IRON) TAB PO SCH ×2 (08:34→21:12)
[2016-10-04] MEDS: SODIUM CHLORIDE 0.9% FLUSH 10 ML FLUSH IV FLUSH SCH ×2 (08:34→21:00)
[2016-10-04] MEDS: LEVOFLOXACIN 500 MG TAB PO SCH (08:34)
[2016-10-04] MEDS: SODIUM CHLORIDE 0.9% FLUSH 10 ML FLUSH IVF SCH (08:34)
[2016-10-04] MEDS: POLYETHYLENE GLYCOL 17 GM PKG PO SCH ×2 (08:34→21:00)
[2016-10-04] MEDS: FLUoxetine HCL 20 MG CAP PO SCH (08:34)
[2016-10-04] MEDS: RIFAXIMIN 550 MG TAB PO SCH ×2 (08:34→21:12)
[2016-10-04] MEDS: SODIUM CHLORIDE 0.9% 10 ML VIAL IRRIGATION SCH ×2 (08:35→21:00)
--- NOTE | 2016-10-04 10:11 | HHI.FPPN ---
Subjective Remarks Patient seen and examined this morning. No acute events over night. Patient states she feels well, no abdominal pain. States she had a darker stool this morning. No other complaints of nausea, vomiting, fever, chills, chest pain, shortness of breath, change in urinary habits. (Elliott Willingham MD R1) Objective Vitals Vital Signs Date Time Temp Pulse Resp B/P Pulse Ox O2 Delivery O2 Flow Rate FiO2 10/04/16 08:00 99.3 75 18 134/64 94 10/04/16 05:06 98.9 72 18 132/60 93 10/04/16 04:00 98.5 80 20 132/77 94 10/04/16 04:00 Room Air 10/04/16 02:50 98.2 77 16 133/77 96 10/04/16 02:35 98.1 80 18 141/68 95 10/04/16 02:00 98.2 82 18 149/72 96 10/04/16 00:00 Room Air 10/04/16 00:00 98.1 70 16 132/63 97 10/03/16 23:24 98.3 73 18 133/60 95 10/03/16 23:04 98.1 80 18 117/59 95 10/03/16 20:30 Room Air 10/03/16 20:00 72 10/03/16 20:00 98.7 83 16 130/72 97 10/03/16 16:00 98.3 85 20 131/70 95 10/03/16 12:00 98.9 82 20 124/71 93 I/O 10/03/16 10/03/16 10/03/16 10/04/16 10/04/16 10/04/16 07:00 15:00 23:00 07:00 15:00 23:00 Intake Total 362 ml 1580 ml 989 ml Balance 362 ml 1580 ml 989 ml Intake Oral 240 ml 1580 ml 360 ml IV Total 122 ml 629 ml # Voids 2 3 4 5 # Bowel Movements 1 4 3 3 (Elliott Willingham MD R1) Result Diagram: 10/04/1652410/04/16524 Objective Remarks GENERAL: This is an elderly female lying in bed, pleasant SKIN: Cool and dry. HEENT: Atraumatic. Normocephalic. Pupils equal round and reactive. Extraocular motions intact. No scleral icterus. No injection or drainage. Trachea midline. CARDIOVASCULAR: Regular rate and rhythm, normal S1/2 no M/R/G RESPIRATORY: Clear to auscultation. Good air movement. No wheezes, rales, or rhonchi. GASTROINTESTINAL: Abdomen soft, non-tender, improving. No guarding. Non- distended. No rebound. No masses appreciated. BS+. Bandage over right upper abdomen c/d/i. Wound examined, healing well. MUSCULOSKELETAL: Edema in upper and lower extremities, trace in upper extremities, 2+ in lower extremities. Mildly tender B/L. No erythema. No unilateral asymmetry. PT/DP pulses 2+ B/L NEUROLOGICAL: Awake and alert. Motor and sensory grossly within normal limits. Normal speech. Procedures Central Line placement 09/26/16, removed 09/27/16, replaced on 09/30/16. Medications and IVs Current Medications Medications (Trade) Dose Ordered Sig/Ani Route Start Time Stop Time Status Last Admin (NS Flush) 2 ml UNSCH PRN IV FLUSH 09/14/16 12:30 09/19/16 14:35 (NS Flush) 2 ml BID IV FLUSH 09/14/16 21:00 10/03/16 20:28 (Zofran Inj) 4 mg Q6H PRN IV 09/14/16 12:45 09/30/16 16:52 (Xanax) 1 mg Q8H PRN PO 09/14/16 12:45 10/03/16 10:32 (PROzac) 20 mg DAILY PO 09/15/16 09:00 10/04/16 08:34 (D50w (Vial) Inj) 50 ml UNSCH PRN IV 09/14/16 12:45 (Glucagon Inj) 1 mg UNSCH PRN OTHER 09/14/16 12:45 (Morphine Inj) 4 mg Q3H PRN IV 09/14/16 22:30 09/25/16 13:55 (Narcan Inj) 0.4 mg UNSCH PRN IV 09/14/16 22:30 (NS Inj) 10 ml BID IRRIGATION 09/15/16 21:00 10/04/16 08:35 (Melatonin) 5 mg HS PRN PO 09/20/16 21:00 (Miralax) 17 gm BID PO 09/20/16 21:00 10/04/16 08:34 (Roxicodone Intensol Liq) 5 mg Q3H PRN PO 09/21/16 12:00 10/03/16 14:00 (Diflucan) 400 mg DAILY PO 09/25/16 09:00 10/04/16 08:34 (Flagyl) 500 mg Q8HR PO 09/24/16 22:00 10/04/16 05:30 Acetaminophen 650 mg 650 mg Q4H PRN PO 09/24/16 22:00 09/24/16 22:10 (Protonix Inj/NS Inj) 100 ml @ 10 mls/hr CONTINUOUS IV 09/26/16 15:00 10/03/16 03:05 (Carafate Liq) 1 gm ACHS PO 09/26/16 16:00 10/04/16 05:30 (Dulcolax Ec) 10 mg 18,21 PO 09/26/16 18:00 10/01/16 16:48 (Levaquin) 500 mg DAILY PO 09/26/16 20:00 10/04/16 08:34 (Xifaxan) 550 mg BID PO 09/27/16 21:00 10/04/16 08:34 (Remeron Soltab Odt) 15 mg HS PO 09/28/16 21:00 10/03/16 20:27 (NS Flush) DAILY IVF 10/01/16 09:00 10/04/16 08:34 (NS Flush) UNSCH PRN IVF 09/30/16 13:15 (Ferrous Sulfate) 325 mg BID PO 10/02/16 13:30 10/04/16 08:34 (Elliott Willingham MD R1) A/P Assessment and Plan This is a 60-year-old female with history of ulcerative colitis and ulcers, presents with severe anemia found to have perforated ulcer and abscess formation. Gastroenterology and colorectal surgery consulted. IR drainage completed 09/15, uncomplicated. Abscess appears resolved on CT (09/23). Patient currently on Coumadin for upper and lower extremity DVTs. Central line placed 09/26/16 due to difficulty in obtaining PIV access as well as thrombi in upstream vessels causing immediate infiltration following successful PIV insertion. Discharge Planning Discharge pending GI, surgery clearance and IVC filter placement (Elliott Willingham MD R1) Attending Attestation Patient seen and examined. Case reviewed and discussed with the resident team. Agree with plan of care as discussed with me and documented in the resident note. (Claudio Lassiter MD) Problem List: (1) Perforated duodenal ulcer Status: Acute Plan: CT scan 09/14 demonstrates a perforation of the duodenum with an abnormal fluid collection with contrast anterior to the mesenteric vasculature measuring 9.12.5 cm with adjacent stranding in the mesentery. There is no free perforation into the abdominal cavity. H/H currently uptrending as of 09/29/16, 09/30/16 labs not back yet H&H stable. Hemoccult 10/04 positive 09/27: Upper GI and small bowel follow through: Large penetrating ulcer second portion of duodenum without extravasation. Delayed gastric emptying. General surgery consulted, Dr. Cisneros signed off (09/26), appreciate recommendations -Diet regular. GI consulted, appreciate recommendations and interventions -Continue MiraLAX -Continue Protonix -Monitor H/H -Gen. surgery was re-consulted due to concern for possible rebleeding as H& Hs were downtrending -Recommend EGD in 2-3 months with possible surgery -IVC filter today General surgery reconsulted, appreciate recommendations -Coumadin is on hold -IVC filter today -Hemoccult 10/04 positive Infectious disease consulted, appreciate recommendations -Blood culture and Urine culture (09/24) no growth to date -Pt has been afebrile Medications: Levaquin 500mg po daily ( Diflucan 400mg po daily (09/25- ) Metronidazole 500mg IV Q8hrs (09/14- ) The above to be continued for 2 weeks Rifaximin 550 mg PO BID (09/27-) Zosyn 3.375 IV daily discontinued (09/15-08/26 ) Pain control: Roxycodone, IV morphine for breakthrough (2) Abscess Status: Acute Plan: CT scan 09/14 shows 9.12.5 cm fluid collection anterior to the mesenteric vasculature with adjacent stranding in the mesentery. IR drainage performed 09/[address] 09/23 "Basically complete resolution of previously seen abscess with a few gas bubbles and mild haziness remaining the upper abdominal mesentery." Drain has been removed. See ABX below (3) GI bleed Status: Resolved Plan: Resolved See plan for perforated lateral ulcer above Status post 4 units packed red blood cells (4) DVT (deep venous thrombosis) Status: Acute Plan: Patient found to have numerous DVTs of the upper and lower extremities. Hematology consulted, currently signed off, appreciate recommendations: - No absolute contraindication to anticoagulation - INR 2.6 10/03/16 - Will have IVC filter placed today (10/04/16) Imaging: Lower extremity ultrasound 09/18: Bilateral lower extremity DVTs with nonocclusive thrombus within the right mid superficial femoral vein and right greater saphenous vein as well as left popliteal vein and occlusive DVT within the right posterior tibial and left peroneal veins. Upper extremity ultrasound 09/18: Extensive DVTs and superficial thrombus is of the left upper extremity. (5) Pleural effusion Status: Acute Plan: Bilateral pleural effusions with left lung consolidation on CT - ID consulted for antibiotic optimization, see above - Pulmonary toilet, Incentive spirometer (6) Hypoalbuminemia Status: Acute Plan: Albumin low at 2.1 on 10/03 -Likely to improve as pts diet progresses -Albumin 5% 12.5 gm IV x1 today -Continue to monitor -Consider additional albumin as needed -Continue to monitor (7) Depression with anxiety Status: Acute Plan: * Consulted psychiatry, appreciated recommendations * Remeron 15 mg HS * F/U consult * Continue fluoxetine 20 mg po daily * Xanax 1 mg Q8hrs prn anxiety (8) Diabetes Status: Acute Plan: History of chronic diabetes. On insulin at home. -Low dose sliding scale while inpatient, blood sugars have been well controlled. (9) FEN Status: Acute Plan: Fluids:None, pt currently tolerating PO Electrolytes: Continue to monitor Nutrition: Clear diet, consider advancing DVT ppx: Coumadin GI ppx: Protonix drip (Elliott Willingham MD R1) Problem Qualifiers (1) GI bleed: Qualified Code: K29.91 - Gastrointestinal hemorrhage associated with gastroduodenitis (2) Diabetes: Qualified Code: E11.9 - Type 2 diabetes mellitus without complication, with long-term current use of insulin Elliott Willingham MD R1 Oct 04, 2016 10:11 Claudio Lassiter MD Oct 04, 2016 14:07
--- NOTE | 2016-10-04 11:12 | PD.ONC.PN ---
Subjective Subjective Remarks Afebrile overnight. Patient resting in bed. Waiting to go down for IVC filter placement. Objective Data Date Time Temp Pulse Resp B/P Pulse Ox O2 Delivery O2 Flow Rate FiO2 10/04/16 10:37 Room Air 21 10/04/16 08:00 99.3 75 18 134/64 94 10/04/16 05:06 98.9 72 18 132/60 93 10/04/16 04:00 98.5 80 20 132/77 94 10/04/16 04:00 Room Air 10/04/16 02:50 98.2 77 16 133/77 96 10/04/16 02:35 98.1 80 18 141/68 95 10/04/16 02:00 98.2 82 18 149/72 96 10/04/16 00:00 Room Air 10/04/16 00:00 98.1 70 16 132/63 97 10/03/16 23:24 98.3 73 18 133/60 95 10/03/16 23:04 98.1 80 18 117/59 95 10/03/16 20:30 Room Air 10/03/16 20:00 72 10/03/16 20:00 98.7 83 16 130/72 97 10/03/16 16:00 98.3 85 20 131/70 95 10/03/16 12:00 98.9 82 20 124/71 93 10/04/16 10/04/16 10/04/16 07:00 15:00 23:00 Intake Total 989 ml Balance 989 ml Result Diagram: 10/04/16 0525 10/04/16 0525 Laboratory Results Laboratory Tests Test 10/03/16 10/04/16 10/04/16 18:30 05:25 06:20 Hemoglobin 9.1 GM/DL 8.8 GM/DL Hematocrit 27.9 % 27.4 % Blood Type A POSITIVE Antibody Screen NEGATIVE Blood Bank Comment White Blood Count 6.5 TH/MM3 Red Blood Count 3.09 MIL/MM3 Mean Corpuscular Volume 88.7 FL Mean Corpuscular Hemoglobin 28.6 PG Mean Corpuscular Hemoglobin 32.2 % Concent Red Cell Distribution Width 17.2 % Platelet Count 211 TH/MM3 Mean Platelet Volume 7.6 FL Neutrophils (%) (Auto) 43.3 % Lymphocytes (%) (Auto) 39.4 % Monocytes (%) (Auto) 8.1 % Eosinophils (%) (Auto) 6.2 % Basophils (%) (Auto) 3.0 % Neutrophils # (Auto) 2.8 TH/MM3 Lymphocytes # (Auto) 2.5 TH/MM3 Monocytes # (Auto) 0.5 TH/MM3 Eosinophils # (Auto) 0.4 TH/MM3 Basophils # (Auto) 0.2 TH/MM3 CBC Comment DIFF FINAL Differential Comment Sodium Level 142 MEQ/L Potassium Level 3.4 MEQ/L Chloride Level 105 MEQ/L Carbon Dioxide Level 27.6 MEQ/L Anion Gap 9 MEQ/L Blood Urea Nitrogen 3 MG/DL Creatinine 1.07 MG/DL Estimat Glomerular Filtration 52 ML/MIN Rate Random Glucose 104 MG/DL Calcium Level 8.2 MG/DL Albumin 2.8 GM/DL Prothrombin Time 18.6 SEC Prothromb Time International 1.6 RATIO Ratio Activated Partial 29.3 SEC Thromboplast Time Culture Results Microbiology Date/Time Procedure Status Source Growth 10/02/16 13:37 Stool Occult Blood (WOLF) - Final Complete Stool Stool HEMOCCULT NEGATIVE 10/04/16 00:45 Stool Occult Blood (WOLF) - Final Complete Stool Stool HEMOCCULT POSITIVE Administered Medications Medications (Trade) Dose Ordered Sig/Ani Route PRN Reason Start Time Stop Time Status Last Admin Dose Admin Sodium Chloride (NS Flush) 2 ml UNSCH PRN IV FLUSH FLUSH AFTER USING IV ACCESS 09/14/16 12:30 09/19/16 14:35 Sodium Chloride (NS Flush) 2 ml BID IV FLUSH 09/14/16 21:00 10/03/16 20:28 Ondansetron HCl (Zofran Inj) 4 mg Q6H PRN IV NAUSEA 09/14/16 12:45 09/30/16 16:52 Alprazolam (Xanax) 1 mg Q8H PRN PO ANXIETY 09/14/16 12:45 10/03/16 10:32 Fluoxetine HCl (PROzac) 20 mg DAILY PO 09/15/16 09:00 10/04/16 08:34 Morphine Sulfate (Morphine Inj) 4 mg Q3H PRN IV BREAKTHROUGH PAIN 09/14/16 22:30 09/25/16 13:55 Sodium Chloride (NS Inj) 10 ml BID IRRIGATION 09/15/16 21:00 10/04/16 08:35 Polyethylene Glycol (Miralax) 17 gm BID PO 09/20/16 21:00 10/04/16 08:34 Oxycodone HCl (Roxicodone Intensol Liq) 5 mg Q3H PRN PO PAIN SCALE 5 TO 10 09/21/16 12:00 10/03/16 14:00 Fluconazole (Diflucan) 400 mg DAILY PO 09/25/16 09:00 10/04/16 08:34 Metronidazole (Flagyl) 500 mg Q8HR PO 09/24/16 22:00 10/04/16 05:30 Acetaminophen 650 mg 650 mg Q4H PRN PO FEVER 09/24/16 22:00 09/24/16 22:10 Pantoprazole Sodium/Sodium Chloride (Protonix Inj/NS Inj) 100 ml @ 10 mls/hr CONTINUOUS IV 09/26/16 15:00 10/03/16 03:05 Sucralfate (Carafate Liq) 1 gm ACHS PO 09/26/16 16:00 10/04/16 05:30 Bisacodyl (Dulcolax Ec) 10 mg 18,21 PO 09/26/16 18:00 10/01/16 16:48 Levofloxacin (Levaquin) 500 mg DAILY PO 09/26/16 20:00 10/04/16 08:34 Rifaximin (Xifaxan) 550 mg BID PO 09/27/16 21:00 10/04/16 08:34 Mirtazapine (Remeron Soltab Odt) 15 mg HS PO 09/28/16 21:00 10/03/16 20:27 Sodium Chloride (NS Flush) DAILY IVF 10/01/16 09:00 10/04/16 08:34 Ferrous Sulfate (Ferrous Sulfate) 325 mg BID PO 10/02/16 13:30 10/04/16 08:34 Objective Remarks GENERAL: Middle aged female sitting up in bed in [facility]. SKIN: Warm and dry. HEAD: Normocephalic. EYES: No injection or drainage. NECK: Supple, trachea midline. CARDIOVASCULAR: Regular rate and rhythm RESPIRATORY: Breath sounds equal bilaterally. No accessory muscle use. GASTROINTESTINAL: Abdomen soft, non-tender, nondistended. EXTREMITIES: No cyanosis NEUROLOGICAL: awake and alert, normal speech Assessment/Plan Problem List: (1) DVT (deep venous thrombosis) Status: Acute Plan: 10/04: IVC filter placement 10/03: Coumadin stopped. IVC filter ordered in IR for GIB (2) GI bleed Status: Resolved Plan: --presented to the emergency room with two episodes of dark stool on . --CT ab/pelvis showed perforation of the proximal duodenum with fluid collection and contrast measuring 9.1 x 2.5 cm. Assessment 60y/o female with bilateral upper extremity and lower extremity deep vein thromboses + GI bleed from a duodenal ulcer. --presented to the emergency room with two episodes of dark stool on 2016. --CT ab/pelvis showed perforation of the proximal duodenum with fluid collection and contrast measuring 9.1 x 2.5 cm. Plan 1. IVC filter placement today 2. monitor CBC, coags 3. fs faxed to new patient referrals for follow up once discharged Attending Statement The exam, history, and the medical decision-making described in the above note were completed with the assistance of the mid-level provider. I reviewed and agree with the findings presented. I attest that I had a [id number] encounter with the patient on the same day, and personally performed and documented my assessment and findings in the medical record. Tolerated IVC filter placement. Central line in place. Heme positive stools. Pt hgb stable but pt looks pale. Noted superficial vein clots of LE and deep vein clot below the knee however pt bleeds with anticoagulation. Continue to monitor hgb and bleeding. Problem Qualifiers (1) GI bleed: Qualified Code: K29.91 - Gastrointestinal hemorrhage associated with gastroduodenitis Talita Issa Oct 04, 2016 11:12 Tesha Branch MD Oct 04, 2016 20:42
[2016-10-04] MEDS ORDERED: fentaNYL CITRATE 250 MCG/5 ML AMP ONE (11:33)
[2016-10-04] MEDS ORDERED: MIDAZOLAM HCL 2 MG/2 ML VIAL ONE ×2 (11:33→11:53)
[2016-10-04] MEDS ORDERED: IOHEXOL 350 MG/ML 100 ML BTL (for RAD DIAG) IV ONE (12:24)
[2016-10-04] MEDS: PANTOPRAZOLE INJ 80 MG in SODIUM CHLORIDE 0.9% INJ 100 ML IV SCH (13:46)
--- NOTE | 2016-10-04 14:15 | RADRPT ---
EXAM DATE/TIME: 10/04/2016 11:25 [place] COMPARISON: No previous studies available for comparison. INDICATIONS : Patient with hx of DVT, GI bleeding. Needs filter. MEDICAL HISTORY : 1. DVT 2. GI bleed 3.DM 4. ulcerative colitis 5.GERD SURGICAL HISTORY : 1.Total colectomy 2. tubal ligation ENCOUNTER: Initial ACUITY: 3 weeks PAIN SCORE: 0/10 FLUORO TIME: 2.2 minutes IMAGE SERIES: 2 ACCESS SITE: Right Internal jugular vein SEDATION TIME: 45 minutes CONTRAST: 1.) 30 cc Omnipaque (iohexol) 350 MEDICATION(S): 1.) 3 mg midazolam (Versed) IV 2.) 200 mcg fentanyl (Sublimaze) IV DEVICE(S): 1.) Inferior vena cava B Rodriguez Venatech filter PROCEDURE : 1. Ultrasound-guided venipuncture. 2. Inferior venacavogram. 3. Inferior vena cava filter placement. 4. Conscious sedation with continuous EKG and oximetry monitoring. The risks, benefits and alternatives to the procedure were explained and verbal and written consent w as obtained. The site was prepped in sterile fashion. Full sterile technique was used, including ca p, mask, sterile gloves and gown and a large sterile sheet. Hand hygiene and 2% chlorhexidine and/or betadine/alcohol prep was utilized per protocol for cutaneous antisepsis. The skin and subcutaneous tissues were infiltrated with local anesthetic solution. With ultrasound and fluoroscopic guidance the targeted vein was punctured and a vascular sheath was p laced. Inferior venacavogram was performed to demonstrate level of renal veins. No caval thrombus was identified. The prescribed filter was deployed in the infrarenal inferior vena cava. Following deplo yment the filter was identified in good position. Conscious sedation was performed with the prescribed dosages and duration as above in the presence of an independent trained radiology nurse to assist in the monitoring of the patient. EKG and oximetry remained stable throughout the procedure. The patient tolerated the procedure well and there were n o complications. The patient was sent to post anesthesia recovery in stable condition. CONCLUSION: Uncomplicated inferior vena cava filter placement as above. Angel Rodgers MD on October 04, 2016 at 14:13 Board Certified Radiologist. This report was verified electronically.
--- NOTE | 2016-10-04 16:32 | HHI.GIFU ---
Subjective Remarks Resting in bed. Had one episode of nonbloody emesis today. Mild to moderate epigastric pain. No further bleeding. Objective Vitals I&O Vital Signs Date Time Temp Pulse Resp B/P Pulse Ox O2 Delivery O2 Flow Rate FiO2 10/04/16 13:01 70 19 121/69 95 10/04/16 12:31 84 18 129/64 98 10/04/16 12:16 98.3 77 17 138/78 98 10/04/16 10:37 Room Air 21 10/04/16 08:00 99.3 75 18 134/64 94 10/04/16 05:06 98.9 72 18 132/60 93 10/04/16 04:00 98.5 80 20 132/77 94 10/04/16 04:00 Room Air 10/04/16 02:50 98.2 77 16 133/77 96 10/04/16 02:35 98.1 80 18 141/68 95 10/04/16 02:00 98.2 82 18 149/72 96 10/04/16 00:00 Room Air 10/04/16 00:00 98.1 70 16 132/63 97 10/03/16 23:24 98.3 73 18 133/60 95 10/03/16 23:04 98.1 80 18 117/59 95 10/03/16 20:30 Room Air 10/03/16 20:00 72 10/03/16 20:00 98.7 83 16 130/72 97 I/O 10/03/16 10/03/16 10/03/16 10/04/16 10/04/16 10/04/16 06:59 14:59 22:59 06:59 14:59 22:59 Intake Total 362 ml 1580 ml 989 ml Balance 362 ml 1580 ml 989 ml Intake Oral 240 ml 1580 ml 360 ml IV Total 122 ml 629 ml # Voids 2 3 4 5 # Bowel Movements 1 4 3 3 Laboratory Laboratory Tests Test 10/03/16 10/04/16 10/04/16 18:30 05:25 06:20 Hemoglobin 9.1 8.8 Hematocrit 27.9 27.4 Blood Type A POSITIVE Antibody Screen NEGATIVE Blood Bank Comment White Blood Count 6.5 Red Blood Count 3.09 Mean Corpuscular Volume 88.7 Mean Corpuscular Hemoglobin 28.6 Mean Corpuscular Hemoglobin 32.2 Concent Red Cell Distribution Width 17.2 Platelet Count 211 Mean Platelet Volume 7.6 Neutrophils (%) (Auto) 43.3 Lymphocytes (%) (Auto) 39.4 Monocytes (%) (Auto) 8.1 Eosinophils (%) (Auto) 6.2 Basophils (%) (Auto) 3.0 Neutrophils # (Auto) 2.8 Lymphocytes # (Auto) 2.5 Monocytes # (Auto) 0.5 Eosinophils # (Auto) 0.4 Basophils # (Auto) 0.2 CBC Comment DIFF FINAL Differential Comment Sodium Level 142 Potassium Level 3.4 Chloride Level 105 Carbon Dioxide Level 27.6 Anion Gap 9 Blood Urea Nitrogen 3 Creatinine 1.07 Estimat Glomerular Filtration 52 Rate Random Glucose 104 Calcium Level 8.2 Albumin 2.8 Prothrombin Time 18.6 Prothromb Time International 1.6 Ratio Activated Partial 29.3 Thromboplast Time Date/Time Procedure Status Source Growth 10/04/16 00:45 Stool Occult Blood ([facility]) - Final Complete Stool Stool HEMOCCULT POSITIVE Imaging Last Impressions IVC Filter Placement X-Ray 10/04/16 0000 Signed Impressions: Service Date/Time: Tuesday, October 04, 2016 11:25 - CONCLUSION: Uncomplicated inferior vena cava filter placement as above. Angel Rodgers MD Central Venous Line 09/30/16 0000 Signed Impressions: Service Date/Time: Friday, September 30, 2016 11:10 - CONCLUSION: Uncomplicated line placement as above. Angel Rodgers MD Chest X-Ray 09/28/16 0000 Signed Impressions: Service Date/Time: Wednesday, September 28, 2016 11:09 - CONCLUSION: No acute cardiopulmonary abnormality is identified. Angel Perez MD Upper GI and Small Bowel X-Ray 09/27/16 0000 Signed Impressions: Service Date/Time: Tuesday, September 27, 2016 09:42 - CONCLUSION: Large penetrating ulcer second portion of duodenum without extravasation. Delayed gastric emptying. Pee Mcclure MD FACR Abdomen/Pelvis CT 09/23/16 0000 Signed Impressions: Service Date/Time: Friday, September 23, 2016 15:49 - CONCLUSION: 1. Basically complete resolution of previously seen abscess with a few gas bubbles and mild haziness remaining the upper abdominal mesentery. 2. Slight anasarca and bilateral pleural effusions, left lung base consolidation. K. Jony Bullard MD Upper Extremity Ultrasound 09/18/16 0000 Signed Impressions: Service Date/Time: Sunday, September 18, 2016 13:11 - CONCLUSION: 1. Extensive deep venous thrombosis and superficial thrombosis left upper extremity. Pee Mcclure MD FACRADDENDUM: The above conclusion should read that there is deep venous thrombosis in the right upper extremity. Hemanth Tapia MD Lower Extremity Ultrasound 09/18/16 0000 Signed Impressions: Service Date/Time: Sunday, September 18, 2016 16:21 - CONCLUSION: Bilateral lower extremity deep venous thrombosis with nonocclusive thrombus within the right mid superficial femoral vein and right greater saphenous vein as well as left popliteal vein and occlusive DVT within the right posterior tibial and left peroneal veins. Nahun Bray MD Abscess Drainage CT 09/15/16 0000 Signed Impressions: Service Date/Time: Thursday, September 15, 2016 12:50 - CONCLUSION: Uncomplicated CT guided drainage, as above. Ady Jasmine MD Physical Exam HEENT: Normocephalic CHEST: Respirations unlabored, diminished bases CARDIAC: RRR ABDOMEN: Soft, mild epigastric tenderness, bowel sounds present EXTREMITIES: BLE edema SKIN: Normal; no rash; no jaundice. RESTAURANT BARTENDER: Lethargic and oriented x 3. Assessment and Plan Plan ASSESSMENT: - Upper GIB, Melena in patient with large perforated duodenal ulcer. Recent hospitalization EGD/Colonoscopy (08/26/16)------> Esophagus normal, Stomach: normal, Duodenum: large ulcerations in the distal bulb extending into the descending duodenum. Multiple possibly ischemic looking ulcers. Biopsies taken. Also could be crohns ulcers. Ileum normal, at 25cm. Rectum has appearance of ileal pouch. Two biopsies taken. Pathology focally ulcerated and necrotic small intestinal mucosal biopsies exhibiting features suggestive of ischemia, distorted small intestinal mucosal biopsies with acute inflammation, clinically J pouch biopsy. Abdomen/Pelvis CTA (08/26/16)-----> I see no evidence for mesenteric ischemia. Rpt EGD (08/31/16) --> copious cheesy material in mid to distal esophagus, biopsy taken possible luis, antral gastritis, and large deep ulcer in distal bulb at 12:00 position. Ulcer in descending duodenum appears improved, looks more like typical PUD now. Pathology revealed antral mucosa with mild active chronic gastritis, esophageal mucosa with acute esophagitis containing budding yeast and pseudohyphae in the superficial keratin layers, consistent with luis esophagitis. A GMS stain performed on block #2 is positive for these fungal organisms. She was treated with Protonix, Carafate, Diflucan, Canasa, and Xifaxan. Rpt. EGD (09/14/16)----> 1. Gastritis antrum-biopsy, esophagitis distal esophagus-biopsy, duodenitis second and third portion of duodenum ulcer clean base duodenal bulb-communication with a cavitary area -looks old-biopsy, no active bleeding 2. Retroflexed views revealed a hiatal hernia. Biopsies duodenal mucosa without significant histopathologic abnormality, acute duodenitis with foveolar metaplasia and reactive epithelial changes, minimal chronic gastritis, negative for H. Pylori, esophageal distal biopsy with gastric type mucosa with severe chronic focally acute inflammation negative for intestinal metaplasia, dysplasia, or malignancy. Rpt imaging (09/14) revealed perforation along the proximal duodenum with fluid collection of contrast and air measuring 9.1 x 2.5 cm. S/P Abscess Drainage CT (09/15/16)----> Uncomplicated CT guided drainage, as above. Rpt. Abdomen/Pelvis CT (09/23/16)----> 1. Basically complete resolution of previously seen abscess with a few gas bubbles and mild haziness remaining the upper abdominal mesentery. 2. Slight anasarca and bilateral pleural effusions, left lung base consolidation. GI reconsulted for melena, drop in hgb (09/26/16) . Pt had reported dark tarry stools x 3 days. HH stable, no melena today. PPI, Levaquin, Flagyl, Diflucan Upper GI and Small Bowel X-Ray 09/27/16-----> Large penetrating ulcer second portion of duodenum without extravasation. Delayed gastric emptying. Gastrin level 125. Pt started having recurrent GI bleeding earlier in week- first melena and then red blood. Her anticoagulation was held and she underwent IVC filter earlier today. She had one episode of nonbloody emesis earlier today, but is has not had any further obvious blood in her stool. Dr. Hernández and Dr. Cisneros discussed case and the plan is for EGD in 2-3 months prior to possible surgery. HH 8.8/27.4. - Severe anemia secondary to acute blood loss. S/P 5 units PRBC. Hgb stable at 8.8/27.4. - Recent luis esophagitis. This was not seen on most recent endoscopy. Diflucan. PPI - Abnormal weight loss. 20 lb weight loss over 3 months. - Ulcerative colitis. Dx 1999. S/P Total Colectomy. - Leukocytosis/Fever/Lactic acid. Low grade fever 99.3. improved - CAROL. IMPROVED - Bilateral DVT with nonocclusive thrombus within the right mid superficial femoral vein and right greater saphenous vein as well as left popliteal vein and occlusive DVT within the right posterior tibial and left peroneal veins. S/P IVC filter today ( had recurrent gi bleeding while on anticoagulation). - DM, Depression/Anxiety, Hyperlipidemia. Pt anxious about progress PLAN: - JONELLE - S/P IVC filter - Change protonix to 40mg IV BID - Carafate - Xifaxan - Cont. Flagyl, Diflucan, Levaquin - Monitor HH q6h x 3 - Transfuse as necessary - Supportive care - Further recommendations to follow based on results of above - Plan will be for EGD in 2-3 months prior to consideration for any surgical intervention for large duodenal ulcer. - Patient seen and examined by and myself and this note is written on his behalf Marjan Doyle Oct 04, 2016 16:32
--- NOTE | 2016-10-04 17:11 | HHI.PR ---
Subjective Subjective Notes Tearful; feels like she is not improving Objective Vitals/I&O Vital Signs Date Time Temp Pulse Resp B/P Pulse Ox O2 Delivery O2 Flow Rate FiO2 10/04/16 13:01 70 19 121/69 95 10/04/16 12:16 98.3 10/04/16 10:37 Room Air 21 Labs Laboratory Tests Test 10/03/16 10/04/16 10/04/16 18:30 05:25 06:20 Hemoglobin 9.1 8.8 Hematocrit 27.9 27.4 Blood Type A POSITIVE Antibody Screen NEGATIVE Blood Bank Comment White Blood Count 6.5 Red Blood Count 3.09 Mean Corpuscular Volume 88.7 Mean Corpuscular Hemoglobin 28.6 Mean Corpuscular Hemoglobin 32.2 Concent Red Cell Distribution Width 17.2 Platelet Count 211 Mean Platelet Volume 7.6 Neutrophils (%) (Auto) 43.3 Lymphocytes (%) (Auto) 39.4 Monocytes (%) (Auto) 8.1 Eosinophils (%) (Auto) 6.2 Basophils (%) (Auto) 3.0 Neutrophils # (Auto) 2.8 Lymphocytes # (Auto) 2.5 Monocytes # (Auto) 0.5 Eosinophils # (Auto) 0.4 Basophils # (Auto) 0.2 CBC Comment DIFF FINAL Differential Comment Sodium Level 142 Potassium Level 3.4 Chloride Level 105 Carbon Dioxide Level 27.6 Anion Gap 9 Blood Urea Nitrogen 3 Creatinine 1.07 Estimat Glomerular Filtration 52 Rate Random Glucose 104 Calcium Level 8.2 Albumin 2.8 Prothrombin Time 18.6 Prothromb Time International 1.6 Ratio Activated Partial 29.3 Thromboplast Time Date/Time Procedure Status Source Growth 10/04/16 00:45 Stool Occult Blood ([facility]) - Final Complete Stool Stool HEMOCCULT POSITIVE Radiology Last Impressions Abscess Drainage CT 09/15/16 0000 Signed Impressions: Service Date/Time: Thursday, September 15, 2016 12:50 - CONCLUSION: Uncomplicated CT guided drainage, as above. Ady Jasmine MD Abdomen/Pelvis CT 09/14/16 1802 Signed Impressions: Service Date/Time: Wednesday, September 14, 2016 22:22 - CONCLUSION: 1. Perforation along the proximal duodenum with fluid collection of contrast and air measuring 9.1 x 2.5 cm. 2. Calcified leiomyoma. 3. Mild distention of the urinary bladder. Dr. Villalba notified of these findings. Will Pink MD Cardiovascular: Regular Lungs: Clear Abdomen: Non-distended, Non-tender Extremities: No edema Narrative Exam RIGHT subclavian dressing in place A/P Assessment and Plan 60-year-old female with duodenal perforation; s/p placement of interventional radiology drain (removed); reconsult for GI bleed -Continue to hold Coumadin -IR consult for IVC filter---placed today -Diet as tolerated -Monitor CBC and INR -Vital signs currently stable; hemodynamically stable -No operative plans at this time Attending Note - Dr. Cisneros Continue nonoperative management Reassess 2-3 months Hold anticoagulation Siena Brooks Oct 04, 2016 17:11 Elliott Cisneros MD Oct 04, 2016 18:30
[2016-10-04] MEDS: BISACODYL EC 5 MG TABEC PO SCH ×2 (17:35→21:00)
[2016-10-04] MEDS: oxyCODONE HCL ORAL CONC 20 MG/ML SYRINGE PO PRN (18:48)
[2016-10-04] MEDS: ALPRAZolam 1 MG TAB PO PRN (18:50)
[2016-10-04] MEDS: MIRTAZAPINE ODT 15 MG TAB PO SCH (21:12)
[2016-10-05] VITALS (7 sets, daily range): BP systolic 115–142; BP diastolic 64–88; PULSE 78–91; RESP 16–20; TEMP 97.6–98.3; O2SAT 94–99
[2016-10-05] MEDS: PANTOPRAZOLE INJ 80 MG in SODIUM CHLORIDE 0.9% INJ 100 ML IV SCH ×2 (00:17→21:12)
[2016-10-05] MEDS: SUCRALFATE 1 GM/10 ML CUP PO SCH ×4 (06:22→21:04)
[2016-10-05] MEDS: metroNIDAZOLE 500 MG TAB PO SCH ×3 (06:23→21:04)
[2016-10-05] MEDS: INSULIN ASPART SUPPLEMENTAL SCALE SQ SCH ×4 (06:23→21:00)
[2016-10-05 07:03] LABS: HEMATOCRIT 28.8 % (35.0-46.0); MEAN CELL VOLUME 87.3 FL (80.0-100.0); MEAN CORPUSCULAR HEMOGLOBIN 29.1 PG (27.0-34.0); MEAN CORPUSCULAR HGB CONC 33.4 % (32.0-36.0); PLATELET COUNT 204 TH/MM3 (150-450); RED CELL DISTRIBUTION WIDTH 17.8 % (11.6-17.2); REVIEW FLAG FINAL; WHITE BLOOD COUNT 7.6 TH/MM3 (4.0-11.0)
[2016-10-05 07:28] LABS: BICARBONATE 28.5 MEQ/L (21.0-32.0); POTASSIUM 3.2 MEQ/L (3.5-5.1)
[2016-10-05 07:31] LABS: APTT (PATIENT) 26.7 SEC (24.3-30.1)
[2016-10-05 07:32] LABS: INTERNATIONAL NORMALIZED RATIO 1.3 RATIO; PROTHROMBIN TIME - PATIENT 14.4 SEC (9.8-11.6)
[2016-10-05] MEDS: SODIUM CHLORIDE 0.9% FLUSH 10 ML FLUSH IV FLUSH SCH ×2 (08:23→21:05)
[2016-10-05] MEDS: SODIUM CHLORIDE 0.9% 10 ML VIAL IRRIGATION SCH ×2 (08:23→21:00)
[2016-10-05] MEDS: SODIUM CHLORIDE 0.9% FLUSH 10 ML FLUSH IVF SCH (08:23)
[2016-10-05] MEDS: FLUoxetine HCL 20 MG CAP PO SCH (08:39)
[2016-10-05] MEDS: RIFAXIMIN 550 MG TAB PO SCH ×2 (08:39→21:04)
[2016-10-05] MEDS: LEVOFLOXACIN 500 MG TAB PO SCH (08:39)
[2016-10-05] MEDS: FERROUS SULFATE 325 MG (65 MG ELEMENTAL IRON) TAB PO SCH ×2 (08:39→21:04)
[2016-10-05] MEDS: POLYETHYLENE GLYCOL 17 GM PKG PO SCH ×2 (08:40→21:00)
[2016-10-05] MEDS: FLUCONAZOLE 200 MG TAB PO SCH (08:40)
--- NOTE | 2016-10-05 11:20 | HHI.FPPN ---
Subjective Remarks Patient seen and examined this morning. No acute events overnight. Patient states she recently had a bowel movement, somewhat loose, "dark." No lightheadedness, dizziness, weakness. She notes decreased swelling in her legs B /L, and believes she is ambulating better. No other complaints of nausea, vomiting, fever, chills, chest pain, shortness of breath, abdominal pain, change in urinary habits. (Elliott Willingham MD R1) Objective Vitals Vital Signs Date Time Temp Pulse Resp B/P Pulse Ox O2 Delivery O2 Flow Rate FiO2 10/05/16 09:42 Room Air 21 10/05/16 08:00 97.9 91 16 115/73 94 10/05/16 04:00 98.3 84 16 135/88 97 10/05/16 00:00 98.2 88 20 133/80 96 10/04/16 20:00 Room Air 10/04/16 20:00 83 10/04/16 20:00 97.9 90 20 129/75 96 10/04/16 16:00 98.5 83 20 138/63 95 10/04/16 13:01 70 19 121/69 95 10/04/16 12:31 84 18 129/64 98 10/04/16 12:16 98.3 77 17 138/78 98 I/O 10/04/16 10/04/16 10/04/16 10/05/16 10/05/16 10/05/16 06:59 14:59 22:59 06:59 14:59 22:59 Intake Total 989 ml 480 ml 554 ml 1169 ml Balance 989 ml 480 ml 554 ml 1169 ml Intake Oral 360 ml 480 ml 480 ml 1080 ml IV Total 629 ml 74 ml 89 ml # Voids 5 4 3 2 # Bowel Movements 3 1 0 0 (Elliott Willingham MD R1) Result Diagram: 10/05/16 0600 10/05/16 0600 Imaging Last 48 hours Impressions IVC Filter Placement X-Ray 10/04/16 0000 Signed Impressions: Service Date/Time: Tuesday, October 04, 2016 11:25 - CONCLUSION: Uncomplicated inferior vena cava filter placement as above. Angel Rodgers MD Objective Remarks GENERAL: This is an elderly female lying in bed, pleasant SKIN: Cool and dry. HEENT: Atraumatic. Normocephalic. Pupils equal round and reactive. Extraocular motions intact. No scleral icterus. No injection or drainage. Trachea midline. CARDIOVASCULAR: Regular rate and rhythm, normal S1/2 no M/R/G RESPIRATORY: Clear to auscultation. Good air movement. No wheezes, rales, or rhonchi. GASTROINTESTINAL: Abdomen soft, non-tender, improving. No guarding. Non- distended. No rebound. No masses appreciated. BS+. Bandage over right upper abdomen c/d/i. Wound examined, healing well. MUSCULOSKELETAL: Edema in upper and lower extremities, trace in upper extremities, 2+ in lower extremities. Mildly tender B/L. No erythema. No unilateral asymmetry. PT/DP pulses 2+ B/L NEUROLOGICAL: Awake and alert. Motor and sensory grossly within normal limits. Normal speech. Procedures Central Line placement 09/26/16, removed 09/27/16, replaced on 09/30/16. IVC filter placed 10/04/16 Medications and IVs Current Medications Medications (Trade) Dose Ordered Sig/Ani Route Start Time Stop Time Status Last Admin (NS Flush) 2 ml UNSCH PRN IV FLUSH 09/14/16 12:30 09/19/16 14:35 (NS Flush) 2 ml BID IV FLUSH 09/14/16 21:00 10/05/16 08:23 (Zofran Inj) 4 mg Q6H PRN IV 09/14/16 12:45 09/30/16 16:52 (Xanax) 1 mg Q8H PRN PO 09/14/16 12:45 10/04/16 18:50 (PROzac) 20 mg DAILY PO 09/15/16 09:00 10/05/16 08:39 (D50w (Vial) Inj) 50 ml UNSCH PRN IV 09/14/16 12:45 (Glucagon Inj) 1 mg UNSCH PRN OTHER 09/14/16 12:45 (Morphine Inj) 4 mg Q3H PRN IV 09/14/16 22:30 09/25/16 13:55 (Narcan Inj) 0.4 mg UNSCH PRN IV 09/14/16 22:30 (NS Inj) 10 ml BID IRRIGATION 09/15/16 21:00 10/04/16 08:35 (Melatonin) 5 mg HS PRN PO 09/20/16 21:00 (Miralax) 17 gm BID PO 09/20/16 21:00 10/04/16 08:34 (Roxicodone Intensol Liq) 5 mg Q3H PRN PO 09/21/16 12:00 10/04/16 18:48 (Diflucan) 400 mg DAILY PO 09/25/16 09:00 10/05/16 08:40 (Flagyl) 500 mg Q8HR PO 09/24/16 22:00 10/05/16 06:23 Acetaminophen 650 mg 650 mg Q4H PRN PO 09/24/16 22:00 09/24/16 22:10 (Protonix Inj/NS Inj) 100 ml @ 10 mls/hr CONTINUOUS IV 09/26/16 15:00 10/05/16 00:17 (Carafate Liq) 1 gm ACHS PO 09/26/16 16:00 10/05/16 06:22 (Dulcolax Ec) 10 mg 18,21 PO 09/26/16 18:00 10/04/16 17:35 (Levaquin) 500 mg DAILY PO 09/26/16 20:00 10/05/16 08:39 (Xifaxan) 550 mg BID PO 09/27/16 21:00 10/05/16 08:39 (Remeron Soltab Odt) 15 mg HS PO 09/28/16 21:00 10/04/16 21:12 (NS Flush) DAILY IVF 10/01/16 09:00 10/04/16 08:34 (NS Flush) UNSCH PRN IVF 09/30/16 13:15 (Ferrous Sulfate) 325 mg BID PO 10/02/16 13:30 10/05/16 08:39 (Elliott Willingham MD R1) A/P Assessment and Plan This is a 60-year-old female with history of ulcerative colitis and ulcers, presents with severe anemia found to have perforated ulcer and abscess formation. Gastroenterology and colorectal surgery consulted. IR drainage completed 09/15, uncomplicated. Abscess appears resolved on CT (09/23). Patient currently on Coumadin for upper and lower extremity DVTs. Central line placed 09/26/16 due to difficulty in obtaining PIV access as well as thrombi in upstream vessels causing immediate infiltration following successful PIV insertion. Discharge Planning Discharge pending GI, surgery clearance (Elliott Willingham MD R1) Attending Attestation Patient seen and examined. Case reviewed and discussed with the resident team. Agree with plan of care as discussed with me and documented in the resident note. (Claudio Lassiter MD) Problem List: (1) Perforated duodenal ulcer Status: Acute Plan: CT scan 09/14 demonstrates a perforation of the duodenum with an abnormal fluid collection with contrast anterior to the mesenteric vasculature measuring 9.12.5 cm with adjacent stranding in the mesentery. There is no free perforation into the abdominal cavity. H/H currently uptrending as of 09/29/16, 09/30/16 labs not back yet Hemoccult 10/04 positive 09/27: Upper GI and small bowel follow through: Large penetrating ulcer second portion of duodenum without extravasation. Delayed gastric emptying. General surgery consulted, Dr. Cisneros signed off (09/26), appreciate recommendations -Diet regular. GI consulted, appreciate recommendations and interventions -Continue MiraLAX -Continue Protonix -Monitor H/H -Gen. surgery was re-consulted due to concern for possible rebleeding as H& Hs were downtrending -Recommend EGD in 2-3 months with possible surgery -IVC filter today General surgery reconsulted, appreciate recommendations -Coumadin is on hold -IVC filter placed 10/04/16 -Hemoccult 10/04 positive Infectious disease consulted, appreciate recommendations -Blood culture and Urine culture (09/24) no growth to date -Pt has been afebrile Medications: Levaquin 500mg po daily ( Diflucan 400mg po daily (09/25- ) Metronidazole 500mg IV Q8hrs (09/14- ) The above to be continued for 2 weeks Rifaximin 550 mg PO BID (09/27-) Zosyn 3.375 IV daily discontinued (09/15-08/26 ) Pain control: Roxycodone, IV morphine for breakthrough (2) Abscess Status: Acute Plan: CT scan 09/14 shows 9.12.5 cm fluid collection anterior to the mesenteric vasculature with adjacent stranding in the mesentery. IR drainage performed 09/[address] 09/23 "Basically complete resolution of previously seen abscess with a few gas bubbles and mild haziness remaining the upper abdominal mesentery." Drain has been removed. See ABX below (3) GI bleed Status: Resolved Plan: Resolved See plan for perforated lateral ulcer above Status post 4 units packed red blood cells (4) DVT (deep venous thrombosis) Status: Acute Plan: Patient found to have numerous DVTs of the upper and lower extremities. Hematology consulted, currently signed off, appreciate recommendations: - No absolute contraindication to anticoagulation - INR 2.6 10/03/16 - Will have IVC filter placed today (10/04/16) Imaging: Lower extremity ultrasound 09/18: Bilateral lower extremity DVTs with nonocclusive thrombus within the right mid superficial femoral vein and right greater saphenous vein as well as left popliteal vein and occlusive DVT within the right posterior tibial and left peroneal veins. Upper extremity ultrasound 09/18: Extensive DVTs and superficial thrombus is of the left upper extremity. (5) Pleural effusion Status: Acute Plan: Bilateral pleural effusions with left lung consolidation on CT - ID consulted for antibiotic optimization, see above - Pulmonary toilet, Incentive spirometer (6) Hypoalbuminemia Status: Acute Plan: Albumin low at 2.1 on 10/03 -Likely to improve as pts diet progresses -Albumin 5% 12.5 gm IV x1 today -Continue to monitor -Consider additional albumin as needed -Continue to monitor (7) Depression with anxiety Status: Acute Plan: * Consulted psychiatry, appreciated recommendations * Remeron 15 mg HS * F/U consult * Continue fluoxetine 20 mg po daily * Xanax 1 mg Q8hrs prn anxiety (8) Diabetes Status: Acute Plan: History of chronic diabetes. On insulin at home. -Low dose sliding scale while inpatient, blood sugars have been well controlled. (9) FEN Status: Acute Plan: Fluids:None, pt currently tolerating PO Electrolytes: Continue to monitor Nutrition: Clear diet, consider advancing DVT ppx: Coumadin GI ppx: Protonix drip (Elliott Willingham MD R1) Problem Qualifiers (1) GI bleed: Qualified Code: K29.91 - Gastrointestinal hemorrhage associated with gastroduodenitis (2) Diabetes: Qualified Code: E11.9 - Type 2 diabetes mellitus without complication, with long-term current use of insulin Elliott Willingham MD R1 Oct 05, 2016 11:20 Claudio Lassiter MD Oct 06, 2016 15:10
--- NOTE | 2016-10-05 12:31 | PD.ONC.PN ---
Subjective Subjective Remarks Afebrile overnight Patient states that she is doing "so-so" Had IVC filter placed yesterday Objective Data Date Time Temp Pulse Resp B/P Pulse Ox O2 Delivery O2 Flow Rate FiO2 10/05/16 09:42 Room Air 21 10/05/16 08:00 97.9 91 16 115/73 94 10/05/16 04:00 98.3 84 16 135/88 97 10/05/16 00:00 98.2 88 20 133/80 96 10/04/16 20:00 Room Air 10/04/16 20:00 83 10/04/16 20:00 97.9 90 20 129/75 96 10/04/16 16:00 98.5 83 20 138/63 95 10/04/16 13:01 70 19 121/69 95 10/04/16 12:31 84 18 129/64 98 Result Diagram: 10/05/16 0600 10/05/16 0600 Laboratory Results Laboratory Tests Test 10/05/16 06:00 White Blood Count 7.6 TH/MM3 Red Blood Count 3.30 MIL/MM3 Hemoglobin 9.6 GM/DL Hematocrit 28.8 % Mean Corpuscular Volume 87.3 FL Mean Corpuscular Hemoglobin 29.1 PG Mean Corpuscular Hemoglobin 33.4 % Concent Red Cell Distribution Width 17.8 % Platelet Count 204 TH/MM3 Mean Platelet Volume 8.2 FL Prothrombin Time 14.4 SEC Prothromb Time International 1.3 RATIO Ratio Activated Partial 26.7 SEC Thromboplast Time Sodium Level 140 MEQ/L Potassium Level 3.2 MEQ/L Chloride Level 105 MEQ/L Carbon Dioxide Level 28.5 MEQ/L Anion Gap 7 MEQ/L Blood Urea Nitrogen 3 MG/DL Creatinine 0.93 MG/DL Estimat Glomerular Filtration 61 ML/MIN Rate Random Glucose 109 MG/DL Calcium Level 8.0 MG/DL Culture Results Microbiology Date/Time Procedure Status Source Growth 10/02/16 13:37 Stool Occult Blood (WOLF) - Final Complete Stool Stool HEMOCCULT NEGATIVE 10/04/16 00:45 Stool Occult Blood (WOLF) - Final Complete Stool Stool HEMOCCULT POSITIVE Administered Medications Medications (Trade) Dose Ordered Sig/Ani Route PRN Reason Start Time Stop Time Status Last Admin Dose Admin Sodium Chloride (NS Flush) 2 ml UNSCH PRN IV FLUSH FLUSH AFTER USING IV ACCESS 09/14/16 12:30 09/19/16 14:35 Sodium Chloride (NS Flush) 2 ml BID IV FLUSH 09/14/16 21:00 10/05/16 08:23 Ondansetron HCl (Zofran Inj) 4 mg Q6H PRN IV NAUSEA 09/14/16 12:45 09/30/16 16:52 Fluoxetine HCl (PROzac) 20 mg DAILY PO 09/15/16 09:00 10/05/16 08:39 Morphine Sulfate (Morphine Inj) 4 mg Q3H PRN IV BREAKTHROUGH PAIN 09/14/16 22:30 09/25/16 13:55 Sodium Chloride (NS Inj) 10 ml BID IRRIGATION 09/15/16 21:00 10/04/16 08:35 Polyethylene Glycol (Miralax) 17 gm BID PO 09/20/16 21:00 10/04/16 08:34 Oxycodone HCl (Roxicodone Intensol Liq) 5 mg Q3H PRN PO PAIN SCALE 5 TO 10 09/21/16 12:00 10/04/16 18:48 Fluconazole (Diflucan) 400 mg DAILY PO 09/25/16 09:00 10/05/16 08:40 Metronidazole (Flagyl) 500 mg Q8HR PO 09/24/16 22:00 10/05/16 06:23 Acetaminophen 650 mg 650 mg Q4H PRN PO FEVER 09/24/16 22:00 09/24/16 22:10 Pantoprazole Sodium/Sodium Chloride (Protonix Inj/NS Inj) 100 ml @ 10 mls/hr CONTINUOUS IV 09/26/16 15:00 10/05/16 00:17 Sucralfate (Carafate Liq) 1 gm ACHS PO 09/26/16 16:00 10/05/16 06:22 Bisacodyl (Dulcolax Ec) 10 mg 18,21 PO 09/26/16 18:00 10/04/16 17:35 Levofloxacin (Levaquin) 500 mg DAILY PO 09/26/16 20:00 10/05/16 08:39 Rifaximin (Xifaxan) 550 mg BID PO 09/27/16 21:00 10/05/16 08:39 Mirtazapine (Remeron Soltab Odt) 15 mg HS PO 09/28/16 21:00 10/04/16 21:12 Sodium Chloride (NS Flush) DAILY IVF 10/01/16 09:00 10/04/16 08:34 Ferrous Sulfate (Ferrous Sulfate) 325 mg BID PO 10/02/16 13:30 10/05/16 08:39 Objective Remarks GENERAL: Middle aged female sitting up in bed in no acute distress SKIN: Warm and dry. No oozing from lines HEAD: Normocephalic. EYES: No injection or drainage. NECK: Supple, trachea midline. CARDIOVASCULAR: Regular rate and rhythm RESPIRATORY: Breath sounds equal bilaterally. No accessory muscle use. GASTROINTESTINAL: Abdomen soft, non-tender, nondistended. EXTREMITIES: No cyanosis. NEUROLOGICAL: Moving all extremities. Normal speech. No obvious focal deficit. Assessment/Plan Problem List: (1) DVT (deep venous thrombosis) Status: Acute Plan: 10/04: IVC filter placement 10/03: Coumadin stopped. IVC filter ordered in IR for GIB (2) GI bleed Status: Resolved Plan: --presented to the emergency room with two episodes of dark stool on . --CT ab/pelvis showed perforation of the proximal duodenum with fluid collection and contrast measuring 9.1 x 2.5 cm. Assessment 60y/o female with bilateral upper extremity and lower extremity deep vein thromboses + GI bleed from a duodenal ulcer. --presented to the emergency room with two episodes of dark stool on 2016. --CT ab/pelvis showed perforation of the proximal duodenum with fluid collection and contrast measuring 9.1 x 2.5 cm. Plan 1. IVC filter placement yesterday. 2. May possibly start patient on low molecular weight heparin in a few days if hemoglobin remains stable and there is no obvious GI bleeding. 3. Monitor CBC Attending Statement The exam, history, and the medical decision-making described in the above note were completed with the assistance of the mid-level provider. I reviewed and agree with the findings presented. I attest that I had a [id number] encounter with the patient on the same day, and personally performed and documented my assessment and findings in the medical record. Some nausea. No more vomiting. Mind racing did not sleep last night, tired this AM. Noted Xanax available prn but pt not requesting. Discussed switch to lorazepam at night to assist with anxiety. Monitor Hgb. No overt bleeding. Problem Qualifiers (1) GI bleed: Qualified Code: K29.91 - Gastrointestinal hemorrhage associated with gastroduodenitis Veena Fowler Oct 05, 2016 12:31 Tesha Branch MD Oct 05, 2016 14:27
--- NOTE | 2016-10-05 15:12 | HHI.GIFU ---
Subjective Remarks Pt resting in bed, says she is tired today. (Sandra Valerio) Objective Vitals I&O Vital Signs Date Time Temp Pulse Resp B/P Pulse Ox O2 Delivery O2 Flow Rate FiO2 10/05/16 12:00 98.2 78 20 140/64 96 10/05/16 09:42 Room Air 21 10/05/16 08:00 97.9 91 16 115/73 94 10/05/16 04:00 98.3 84 16 135/88 97 10/05/16 00:00 98.2 88 20 133/80 96 10/04/16 20:00 Room Air 10/04/16 20:00 83 10/04/16 20:00 97.9 90 20 129/75 96 10/04/16 16:00 98.5 83 20 138/63 95 I/O 10/04/16 10/04/16 10/04/16 10/05/16 10/05/16 10/05/16 07:00 15:00 23:00 07:00 15:00 23:00 Intake Total 989 ml 480 ml 554 ml 1169 ml Balance 989 ml 480 ml 554 ml 1169 ml Intake Oral 360 ml 480 ml 480 ml 1080 ml IV Total 629 ml 74 ml 89 ml # Voids 5 4 3 2 # Bowel Movements 3 1 0 0 Laboratory Laboratory Tests Test 10/05/16 06:00 White Blood Count 7.6 Red Blood Count 3.30 Hemoglobin 9.6 Hematocrit 28.8 Mean Corpuscular Volume 87.3 Mean Corpuscular Hemoglobin 29.1 Mean Corpuscular Hemoglobin 33.4 Concent Red Cell Distribution Width 17.8 Platelet Count 204 Mean Platelet Volume 8.2 Prothrombin Time 14.4 Prothromb Time International 1.3 Ratio Activated Partial 26.7 Thromboplast Time Sodium Level 140 Potassium Level 3.2 Chloride Level 105 Carbon Dioxide Level 28.5 Anion Gap 7 Blood Urea Nitrogen 3 Creatinine 0.93 Estimat Glomerular Filtration 61 Rate Random Glucose 109 Calcium Level 8.0 Date/Time Procedure Status Source Growth 10/04/16 00:45 Stool Occult Blood (WOLF) - Final Complete Stool Stool HEMOCCULT POSITIVE Imaging Last Impressions IVC Filter Placement X-Ray 10/04/16 0000 Signed Impressions: Service Date/Time: Tuesday, October 04, 2016 11:25 - CONCLUSION: Uncomplicated inferior vena cava filter placement as above. Angel Rodgers MD Central Venous Line 09/30/16 Signed Impressions: Service Date/Time: Friday, September 30, 2016 11:10 - CONCLUSION: Uncomplicated line placement as above. Angel Rodgers MD Chest X-Ray 09/28/16 Signed Impressions: Service Date/Time: Wednesday, September 28, 2016 11:09 - CONCLUSION: No acute cardiopulmonary abnormality is identified. Angel Perez MD Upper GI and Small Bowel X-Ray 09/27/16 Signed Impressions: Service Date/Time: Tuesday, September 27, 2016 09:42 - CONCLUSION: Large penetrating ulcer second portion of duodenum without extravasation. Delayed gastric emptying. Pee Mcclure MD FACR Abdomen/Pelvis CT 09/23/16 Signed Impressions: Service Date/Time: Friday, September 23, 2016 15:49 - CONCLUSION: 1. Basically complete resolution of previously seen abscess with a few gas bubbles and mild haziness remaining the upper abdominal mesentery. 2. Slight anasarca and bilateral pleural effusions, left lung base consolidation. Whit Bullard MD Upper Extremity Ultrasound 09/18/16 Signed Impressions: Service Date/Time: Sunday, September 18, 2016 13:11 - CONCLUSION: 1. Extensive deep venous thrombosis and superficial thrombosis left upper extremity. Pee Mcclure MD FACRADDENDUM: The above conclusion should read that there is deep venous thrombosis in the right upper extremity. Hemanth Tapia MD Lower Extremity Ultrasound 09/18/16 Signed Impressions: Service Date/Time: Sunday, September 18, 2016 16:21 - CONCLUSION: Bilateral lower extremity deep venous thrombosis with nonocclusive thrombus within the right mid superficial femoral vein and right greater saphenous vein as well as left popliteal vein and occlusive DVT within the right posterior tibial and left peroneal veins. Nahun Bray MD Abscess Drainage CT 09/15/16 Signed Impressions: Service Date/Time: Thursday, September 15, 2016 12:50 - CONCLUSION: Uncomplicated CT guided drainage, as above. Ady Jasmine MD Physical Exam HEENT: Normocephalic CHEST: Respirations unlabored, diminished bases CARDIAC: RRR ABDOMEN: Soft, mild epigastric tenderness, bowel sounds present EXTREMITIES: BLE edema SKIN: Normal; no rash; no jaundice. ALARM OPERATOR: Lethargic and oriented x 3. (Sandra Valerio [facility]) Assessment and Plan Plan ASSESSMENT: - Upper GIB, Melena in patient with large perforated duodenal ulcer. Recent hospitalization EGD/Colonoscopy (08/26/16)------> Esophagus normal, Stomach: normal, Duodenum: large ulcerations in the distal bulb extending into the descending duodenum. Multiple possibly ischemic looking ulcers. Biopsies taken. Also could be crohns ulcers. Ileum normal, at 25cm. Rectum has appearance of ileal pouch. Two biopsies taken. Pathology focally ulcerated and necrotic small intestinal mucosal biopsies exhibiting features suggestive of ischemia, distorted small intestinal mucosal biopsies with acute inflammation, clinically J pouch biopsy. Abdomen/Pelvis CTA (08/26/16)-----> I see no evidence for mesenteric ischemia. Rpt EGD (08/31/16) --> copious cheesy material in mid to distal esophagus, biopsy taken possible luis, antral gastritis, and large deep ulcer in distal bulb at 12:00 position. Ulcer in descending duodenum appears improved, looks more like typical PUD now. Pathology revealed antral mucosa with mild active chronic gastritis, esophageal mucosa with acute esophagitis containing budding yeast and pseudohyphae in the superficial keratin layers, consistent with luis esophagitis. A GMS stain performed on block #2 is positive for these fungal organisms. She was treated with Protonix, Carafate, Diflucan, Canasa, and Xifaxan. Rpt. EGD (09/14/16)----> 1. Gastritis antrum-biopsy, esophagitis distal esophagus-biopsy, duodenitis second and third portion of duodenum ulcer clean base duodenal bulb-communication with a cavitary area -looks old-biopsy, no active bleeding 2. Retroflexed views revealed a hiatal hernia. Biopsies duodenal mucosa without significant histopathologic abnormality, acute duodenitis with foveolar metaplasia and reactive epithelial changes, minimal chronic gastritis, negative for H. Pylori, esophageal distal biopsy with gastric type mucosa with severe chronic focally acute inflammation negative for intestinal metaplasia, dysplasia, or malignancy. Rpt imaging (09/14) revealed perforation along the proximal duodenum with fluid collection of contrast and air measuring 9.1 x 2.5 cm. S/P Abscess Drainage CT (09/15/16)----> Uncomplicated CT guided drainage, as above. Rpt. Abdomen/Pelvis CT (09/23/16)----> 1. Basically complete resolution of previously seen abscess with a few gas bubbles and mild haziness remaining the upper abdominal mesentery. 2. Slight anasarca and bilateral pleural effusions, left lung base consolidation. GI reconsulted for melena, drop in hgb (09/26/16) . Pt had reported dark tarry stools x 3 days. HH stable, no melena today. PPI, Levaquin, Flagyl, Diflucan Upper GI and Small Bowel X-Ray 09/27/16-----> Large penetrating ulcer second portion of duodenum without extravasation. Delayed gastric emptying. Gastrin level 125. Pt started having recurrent GI bleeding earlier in week- first melena and then red blood. Her anticoagulation was held and she underwent IVC filter earlier today. She had one episode of nonbloody emesis earlier today, but is has not had any further obvious blood in her stool. Dr. Hernández and Dr. Cisneros discussed case and the plan is for EGD in 2-3 months prior to possible surgery. HH 8.8/27.4. - Severe anemia secondary to acute blood loss. S/P 5 units PRBC. Hgb stable . - Recent luis esophagitis. This was not seen on most recent endoscopy. Diflucan. PPI - Abnormal weight loss. 20 lb weight loss over 3 months. - Ulcerative colitis. Dx 1999. S/P Total Colectomy. - Leukocytosis/Fever/Lactic acid. Low grade fever 99.3. improved - CAROL. IMPROVED - Bilateral DVT with nonocclusive thrombus within the right mid superficial femoral vein and right greater saphenous vein as well as left popliteal vein and occlusive DVT within the right posterior tibial and left peroneal veins. S/P IVC filter today ( had recurrent gi bleeding while on anticoagulation). - DM, Depression/Anxiety, Hyperlipidemia. Pt anxious about progress PLAN: - JONELLE - S/P IVC filter - cont IV protonix - Carafate - Xifaxan - Cont. Flagyl, Diflucan, Levaquin - monitor HH - Transfuse as necessary - Supportive care - Further recommendations to follow based on results of above - Plan will be for EGD in 2-3 months prior to consideration for any surgical intervention for large duodenal ulcer. - Patient seen and examined by Dr. Hernández and myself and this note is written on his behalf (Sandra Valerio) Plan Patient was seen and examined agree with above note, continue meds, and supportive care, (Harsh Hernández MD) Sandra Valerio Oct 05, 2016 15:11 Harsh Hernández MD Oct 05, 2016 17:01
[2016-10-05] MEDS: BISACODYL EC 5 MG TABEC PO SCH ×2 (17:45→21:00)
[2016-10-05] MEDS: MIRTAZAPINE ODT 15 MG TAB PO SCH (21:04)
[2016-10-05] MEDS: LORazepam 0.5 MG TAB PO SCH (21:04)
[2016-10-05] MEDS: oxyCODONE HCL ORAL CONC 20 MG/ML SYRINGE PO PRN (21:09)
[2016-10-06] VITALS (8 sets, daily range): BP systolic 118–158; BP diastolic 65–75; PULSE 62–95; RESP 16–18; TEMP 97.5–99; O2SAT 94–98
[2016-10-06] MEDS: INSULIN ASPART SUPPLEMENTAL SCALE SQ SCH ×4 (05:16→22:23)
[2016-10-06] MEDS: SUCRALFATE 1 GM/10 ML CUP PO SCH ×4 (05:17→22:03)
[2016-10-06] MEDS: metroNIDAZOLE 500 MG TAB PO SCH ×3 (05:17→22:03)
[2016-10-06 07:22] LABS: AUTOMATED NEUTROPHIL # 2.2 TH/MM3 (1.8-7.7); BASOPHIL # 0.2 TH/MM3 (0-0.2); BASOPHIL % 3.8 % (0.0-2.0); EOSINOPHIL # 0.4 TH/MM3 (0-0.4); EOSINOPHIL % 6.6 % (0.0-4.0); HEMATOCRIT 26.6 % (35.0-46.0); HEMO FLAGS DIFF FINAL; LYMPH % 38.8 % (9.0-44.0); LYMPHOCYTE # 2.1 TH/MM3 (1.0-4.8); MEAN CELL VOLUME 87.1 FL (80.0-100.0); MEAN CORPUSCULAR HEMOGLOBIN 29.5 PG (27.0-34.0); MEAN CORPUSCULAR HGB CONC 33.8 % (32.0-36.0); MONO % 10.1 % (0.0-8.0); NEUT % 40.7 % (16.0-70.0); PLATELET COUNT 183 TH/MM3 (150-450); RED BLOOD COUNT 3.05 MIL/MM3 (4.00-5.30); RED CELL DISTRIBUTION WIDTH 18.1 % (11.6-17.2); WHITE BLOOD COUNT 5.4 TH/MM3 (4.0-11.0)
[2016-10-06] MEDS: SODIUM CHLORIDE 0.9% 10 ML VIAL IRRIGATION SCH ×2 (07:49→21:00)
[2016-10-06 08:01] LABS: APTT (PATIENT) 25.7 SEC (24.3-30.1)
[2016-10-06] MEDS: POLYETHYLENE GLYCOL 17 GM PKG PO SCH ×2 (09:00→21:00)
[2016-10-06] MEDS: FLUoxetine HCL 20 MG CAP PO SCH (09:25)
[2016-10-06] MEDS: FERROUS SULFATE 325 MG (65 MG ELEMENTAL IRON) TAB PO SCH ×2 (09:25→22:03)
[2016-10-06] MEDS: FLUCONAZOLE 200 MG TAB PO SCH (09:26)
[2016-10-06] MEDS: LEVOFLOXACIN 500 MG TAB PO SCH (09:26)
[2016-10-06] MEDS: SODIUM CHLORIDE 0.9% FLUSH 10 ML FLUSH IVF SCH (09:26)
[2016-10-06] MEDS: RIFAXIMIN 550 MG TAB PO SCH ×2 (09:26→22:03)
[2016-10-06] MEDS: SODIUM CHLORIDE 0.9% FLUSH 10 ML FLUSH IV FLUSH SCH ×2 (09:26→22:24)
--- NOTE | 2016-10-06 11:06 | HHI.FPPN ---
Subjective Remarks Patient seen and examined this morning. Afebrile vital signs stable. Patient is status post IVC filter placement. Explained to her that the plan is to wait a few days and attempt restarting anticoagulation. She understands and agrees with this plan. She reports having a bowel movement and that the stool was brown. Endorses: None Denies: Fever, chills, nausea, vomiting, shortness of breath, chest pain, headache, abdominal pain, calf pain (Lyndon Oritz MD, R3) Objective Vitals Vital Signs Date Time Temp Pulse Resp B/P Pulse Ox O2 Delivery O2 Flow Rate FiO2 10/06/16 09:19 Room Air 10/06/16 08:00 98.2 70 18 125/66 96 10/06/16 07:44 78 10/06/16 04:00 97.5 62 18 120/75 98 10/06/16 00:00 98.8 82 16 118/65 95 10/05/16 20:52 Room Air 10/05/16 20:15 85 10/05/16 20:00 97.6 80 18 140/88 99 10/05/16 16:00 98.1 80 20 142/70 95 10/05/16 12:00 98.2 78 20 140/64 96 I/O 10/05/16 10/05/16 10/05/16 10/06/16 10/06/16 10/06/16 07:00 15:00 23:00 07:00 15:00 23:00 Intake Total 1169 ml 360 ml 240 ml 240 ml Output Total 1 ml Balance 1169 ml 360 ml 240 ml 239 ml Intake Oral 1080 ml 360 ml 240 ml 240 ml IV Total 89 ml Output Urine Total 1 ml # Voids 2 3 4 # Bowel Movements 0 2 2 (Lyndon Ortiz MD, R3) Result Diagram: 10/06/16 0630 10/05/16 0600 Imaging Last Impressions IVC Filter Placement X-Ray 10/04/16 0000 Signed Impressions: Service Date/Time: Tuesday, October 04, 2016 11:25 - CONCLUSION: Uncomplicated inferior vena cava filter placement as above. Angel Rodgers MD Central Venous Line 09/30/16 0000 Signed Impressions: Service Date/Time: Friday, September 30, 2016 11:10 - CONCLUSION: Uncomplicated line placement as above. Angel Rodgers MD Chest X-Ray 09/28/16 Signed Impressions: Service Date/Time: Wednesday, September 28, 2016 11:09 - CONCLUSION: No acute cardiopulmonary abnormality is identified. Angel Perez MD Upper GI and Small Bowel X-Ray 09/27/16 0000 Signed Impressions: Service Date/Time: Tuesday, September 27, 2016 09:42 - CONCLUSION: Large penetrating ulcer second portion of duodenum without extravasation. Delayed gastric emptying. Pee Mcclure MD FACR Abdomen/Pelvis CT 09/23/16 0000 Signed Impressions: Service Date/Time: Friday, September 23, 2016 15:49 - CONCLUSION: 1. Basically complete resolution of previously seen abscess with a few gas bubbles and mild haziness remaining the upper abdominal mesentery. 2. Slight anasarca and bilateral pleural effusions, left lung base consolidation. Whit Bullard MD Upper Extremity Ultrasound 09/18/16 0000 Signed Impressions: Service Date/Time: Sunday, September 18, 2016 13:11 - CONCLUSION: 1. Extensive deep venous thrombosis and superficial thrombosis left upper extremity. Pee Mcclure MD FACRADDENDUM: The above conclusion should read that there is deep venous thrombosis in the right upper extremity. Hemanth Tapia MD Lower Extremity Ultrasound 09/18/16 0000 Signed Impressions: Service Date/Time: Sunday, September 18, 2016 16:21 - CONCLUSION: Bilateral lower extremity deep venous thrombosis with nonocclusive thrombus within the right mid superficial femoral vein and right greater saphenous vein as well as left popliteal vein and occlusive DVT within the right posterior tibial and left peroneal veins. Nahun Bray MD Abscess Drainage CT 09/15/16 0000 Signed Impressions: Service Date/Time: Thursday, September 15, 2016 12:50 - CONCLUSION: Uncomplicated CT guided drainage, as above. Ady Jasmine MD Objective Remarks GENERAL: This is an elderly female lying in bed, pleasant SKIN: Cool and dry. HEENT: Atraumatic. Normocephalic. Pupils equal round and reactive. Extraocular motions intact. No scleral icterus. No injection or drainage. Trachea midline. CARDIOVASCULAR: Regular rate and rhythm, normal S1/2 no M/R/G RESPIRATORY: Clear to auscultation. Good air movement. No wheezes, rales, or rhonchi. GASTROINTESTINAL: Abdomen soft, non-tender, improving. No guarding. Non- distended. No rebound. No masses appreciated. BS+. Bandage over right upper abdomen c/d/i. Wound examined, healing well. MUSCULOSKELETAL: Edema in upper and lower extremities, trace in upper extremities, 2+ in lower extremities. Mildly tender B/L. No erythema. No unilateral asymmetry. PT/DP pulses 2+ B/L NEUROLOGICAL: Awake and alert. Motor and sensory grossly within normal limits. Normal speech. Procedures Central Line placement 09/26/16, removed 09/27/16, replaced on 09/30/16. IVC filter placed 10/04/16 Medications and IVs Current Medications Medications (Trade) Dose Ordered Sig/Ani Route Start Time Stop Time Status Last Admin (NS Flush) 2 ml UNSCH PRN IV FLUSH 09/14/16 12:30 09/19/16 14:35 (NS Flush) 2 ml BID IV FLUSH 09/14/16 21:00 10/06/16 09:26 (Zofran Inj) 4 mg Q6H PRN IV 09/14/16 12:45 09/30/16 16:52 (PROzac) 20 mg DAILY PO 09/15/16 09:00 10/06/16 09:25 (D50w (Vial) Inj) 50 ml UNSCH PRN IV 09/14/16 12:45 (Glucagon Inj) 1 mg UNSCH PRN OTHER 09/14/16 12:45 (Morphine Inj) 4 mg Q3H PRN IV 09/14/16 22:30 09/25/16 13:55 (Narcan Inj) 0.4 mg UNSCH PRN IV 09/14/16 22:30 (NS Inj) 10 ml BID IRRIGATION 09/15/16 21:00 10/04/16 08:35 (Melatonin) 5 mg HS PRN PO 09/20/16 21:00 (Miralax) 17 gm BID PO 09/20/16 21:00 10/04/16 08:34 (Roxicodone Intensol Liq) 5 mg Q3H PRN PO 09/21/16 12:00 10/05/16 21:09 (Diflucan) 400 mg DAILY PO 09/25/16 09:00 10/06/16 09:26 (Flagyl) 500 mg Q8HR PO 09/24/16 22:00 10/06/16 05:17 Acetaminophen 650 mg 650 mg Q4H PRN PO 09/24/16 22:00 09/24/16 22:10 (Protonix Inj/NS Inj) 100 ml @ 10 mls/hr CONTINUOUS IV 09/26/16 15:00 10/05/16 21:12 (Carafate Liq) 1 gm ACHS PO 09/26/16 16:00 10/06/16 05:17 (Dulcolax Ec) 10 mg 18,21 PO 09/26/16 18:00 10/04/16 17:35 (Levaquin) 500 mg DAILY PO 09/26/16 20:00 10/06/16 09:26 (Xifaxan) 550 mg BID PO 09/27/16 21:00 10/06/16 09:26 (Remeron Soltab Odt) 15 mg HS PO 09/28/16 21:00 10/05/16 21:04 (NS Flush) DAILY IVF 10/01/16 09:00 10/06/16 09:26 (NS Flush) UNSCH PRN IVF 09/30/16 13:15 (Ferrous Sulfate) 325 mg BID PO 10/02/16 13:30 10/06/16 09:25 (Ativan) 0.5 mg HS PO 10/05/16 21:00 10/05/16 21:04 (Lyndon Ortiz MD, R3) A/P Assessment and Plan This is a 60-year-old female with history of ulcerative colitis and ulcers, presents with severe anemia found to have perforated ulcer and abscess formation. Gastroenterology and colorectal surgery consulted. IR drainage completed 09/15, uncomplicated. Abscess appears resolved on CT (09/23). Patient currently on Coumadin for upper and lower extremity DVTs. Central line placed 09/26/16 due to difficulty in obtaining PIV access as well as thrombi in upstream vessels causing immediate infiltration following successful PIV insertion. Discharge Planning Discharge pending GI, hematology clearance (Lyndon Ortiz MD, R3) Attending Attestation Patient seen and examined. Case reviewed and discussed with the resident team. Agree with plan of care as discussed with me and documented in the resident note. (Claudio Lassiter MD) Problem List: (1) Perforated duodenal ulcer Status: Acute Plan: CT scan 09/14 demonstrates a perforation of the duodenum with an abnormal fluid collection with contrast anterior to the mesenteric vasculature measuring 9.12.5 cm with adjacent stranding in the mesentery. There is no free perforation into the abdominal cavity. Hemoccult 10/04 positive GI consulted, appreciate recommendations and interventions -Continue MiraLAX -Continue Protonix -Monitor H/H -Gen. surgery was re-consulted due to concern for possible rebleeding as H& Hs were downtrending -Recommend EGD in 2-3 months with possible surgery -IVC filter today General surgery reconsulted, appreciate recommendations -Coumadin is on hold -IVC filter placed 10/04/16 -Hemoccult 10/04 positive Medications: Levaquin 500mg po daily ( Diflucan 400mg po daily (09/25- ) Metronidazole 500mg IV Q8hrs (09/14- ) The above to be continued for 2 weeks Rifaximin 550 mg PO BID (09/27-) Zosyn 3.375 IV daily discontinued (09/15-08/26 ) Pain control: Roxycodone, IV morphine for breakthrough (2) Abscess Status: Acute Plan: CT scan 09/14 shows 9.12.5 cm fluid collection anterior to the mesenteric vasculature with adjacent stranding in the mesentery. IR drainage performed 09/[address] 09/23 "Basically complete resolution of previously seen abscess with a few gas bubbles and mild haziness remaining the upper abdominal mesentery." Drain has been removed. See ABX above (3) GI bleed Status: Resolved Plan: Resolved See plan for perforated lateral ulcer above Status post 4 units packed red blood cells (4) DVT (deep venous thrombosis) Status: Acute Plan: Patient found to have numerous DVTs of the upper and lower extremities. Hematology consulted, appreciate recommendations: -Status post IVC filter placed (10/04/16) -We'll wait a few days and restart anticoagulation (5) Pleural effusion Status: Acute Plan: Bilateral pleural effusions with left lung consolidation on CT - ID consulted for antibiotic optimization, see above - Pulmonary toilet, Incentive spirometer (6) Hypoalbuminemia Status: Acute Plan: Albumin low at 2.8 on 10/04 -Likely to improve as pts diet progresses -Albumin 5% 12.5 gm IV x1 today -Continue to monitor -Consider additional albumin as needed -Continue to monitor (7) Depression with anxiety Status: Acute Plan: * Consulted psychiatry, appreciated recommendations * Remeron 15 mg HS * Continue fluoxetine 20 mg po daily * Lorazepam 0.5 mg at bedtime prn anxiety (8) Diabetes Status: Acute Plan: History of chronic diabetes. On insulin at home. -Low dose sliding scale while inpatient, blood sugars have been well controlled. (9) FEN Status: Acute Plan: Fluids:None, pt currently tolerating PO Electrolytes: Continue to monitor Nutrition: Clear diet, consider advancing DVT ppx: Coumadin GI ppx: Protonix drip (Lyndon Ortiz MD, R3) Problem Qualifiers (1) GI bleed: Qualified Code: K29.91 - Gastrointestinal hemorrhage associated with gastroduodenitis (2) Diabetes: Qualified Code: E11.9 - Type 2 diabetes mellitus without complication, with long-term current use of insulin Lyndon Ortiz MD, R3 Oct 06, 2016 11:06 Claudio Lassiter MD Oct 06, 2016 15:29
[2016-10-06] MEDS: ALPRAZolam 1 MG TAB PO PRN (12:17)
--- NOTE | 2016-10-06 13:34 | HHI.GIFU ---
Subjective Remarks Resting in bed, in no apparent distress. Reports nausea that is improved with eating. Tolerating diet. Denies abdominal pain. + BM, no blood noted (Tahmina Pappas) Objective Vitals I&O Vital Signs Date Time Temp Pulse Resp B/P Pulse Ox O2 Delivery O2 Flow Rate FiO2 10/06/16 12:11 Room Air 10/06/16 12:00 99.0 76 18 158/70 94 10/06/16 09:19 Room Air 10/06/16 08:00 98.2 70 18 125/66 96 10/06/16 07:44 78 10/06/16 04:00 97.5 62 18 120/75 98 10/06/16 00:00 98.8 82 16 118/65 95 10/05/16 20:52 Room Air 10/05/16 20:15 85 10/05/16 20:00 97.6 80 18 140/88 99 10/05/16 16:00 98.1 80 20 142/70 95 I/O 10/05/16 10/05/16 10/05/16 10/06/16 10/06/16 10/06/16 06:59 14:59 22:59 06:59 14:59 22:59 Intake Total 1169 ml 360 ml 240 ml 240 ml Output Total 1 ml Balance 1169 ml 360 ml 240 ml 239 ml Intake Oral 1080 ml 360 ml 240 ml 240 ml IV Total 89 ml Output Urine Total 1 ml # Voids 2 3 4 # Bowel Movements 0 2 2 Laboratory Laboratory Tests Test 10/06/16 06:30 White Blood Count 5.4 Red Blood Count 3.05 Hemoglobin 9.0 Hematocrit 26.6 Mean Corpuscular Volume 87.1 Mean Corpuscular Hemoglobin 29.5 Mean Corpuscular Hemoglobin 33.8 Concent Red Cell Distribution Width 18.1 Platelet Count 183 Mean Platelet Volume 8.0 Neutrophils (%) (Auto) 40.7 Lymphocytes (%) (Auto) 38.8 Monocytes (%) (Auto) 10.1 Eosinophils (%) (Auto) 6.6 Basophils (%) (Auto) 3.8 Neutrophils # (Auto) 2.2 Lymphocytes # (Auto) 2.1 Monocytes # (Auto) 0.5 Eosinophils # (Auto) 0.4 Basophils # (Auto) 0.2 CBC Comment DIFF FINAL Differential Comment Activated Partial 25.7 Thromboplast Time Date/Time Procedure Status Source Growth 10/04/16 00:45 Stool Occult Blood (WOLF) - Final Complete Stool Stool HEMOCCULT POSITIVE Imaging Last Impressions IVC Filter Placement X-Ray 10/04/16 0000 Signed Impressions: Service Date/Time: Tuesday, October 04, 2016 11:25 - CONCLUSION: Uncomplicated inferior vena cava filter placement as above. Angel Rodgers MD Central Venous Line 09/30/16 0000 Signed Impressions: Service Date/Time: Friday, September 30, 2016 11:10 - CONCLUSION: Uncomplicated line placement as above. Angel Rodgers MD Chest X-Ray 09/28/16 0000 Signed Impressions: Service Date/Time: Wednesday, September 28, 2016 11:09 - CONCLUSION: No acute cardiopulmonary abnormality is identified. Angel Perez MD Upper GI and Small Bowel X-Ray 09/27/16 0000 Signed Impressions: Service Date/Time: Tuesday, September 27, 2016 09:42 - CONCLUSION: Large penetrating ulcer second portion of duodenum without extravasation. Delayed gastric emptying. Pee Mcclure MD FACR Abdomen/Pelvis CT 09/23/16 0000 Signed Impressions: Service Date/Time: Friday, September 23, 2016 15:49 - CONCLUSION: 1. Basically complete resolution of previously seen abscess with a few gas bubbles and mild haziness remaining the upper abdominal mesentery. 2. Slight anasarca and bilateral pleural effusions, left lung base consolidation. Whit Bullard MD Upper Extremity Ultrasound 09/18/16 0000 Signed Impressions: Service Date/Time: Sunday, September 18, 2016 13:11 - CONCLUSION: 1. Extensive deep venous thrombosis and superficial thrombosis left upper extremity. Pee Mcclure MD FACRADDENDUM: The above conclusion should read that there is deep venous thrombosis in the right upper extremity. Hemanth Tapia MD Lower Extremity Ultrasound 09/18/16 0000 Signed Impressions: Service Date/Time: Sunday, September 18, 2016 16:21 - CONCLUSION: Bilateral lower extremity deep venous thrombosis with nonocclusive thrombus within the right mid superficial femoral vein and right greater saphenous vein as well as left popliteal vein and occlusive DVT within the right posterior tibial and left peroneal veins. Nahun Bray MD Abscess Drainage CT 09/15/16 0000 Signed Impressions: Service Date/Time: Thursday, September 15, 2016 12:50 - CONCLUSION: Uncomplicated CT guided drainage, as above. Ady Jasmine MD Physical Exam HEENT: PERRLA, Normocephalic CHEST: CTA CARDIAC: RRR ABDOMEN: Soft, non tender, no guarding, bowel sounds present. Bandage at RUQ C/ D/I EXTREMITIES: 2+ edema at LE, trace edema at upper extremities SKIN: Normal; no rash; no jaundice. [employer] POL[employer]ER: Alert and awake (NathanaelflTahmina ventura) Assessment and Plan Plan ASSESSMENT: - Upper GIB, Melena in patient with large perforated duodenal ulcer. Recent hospitalization EGD/Colonoscopy (08/26/16)------> Esophagus normal, Stomach: normal, Duodenum: large ulcerations in the distal bulb extending into the descending duodenum. Multiple possibly ischemic looking ulcers. Biopsies taken. Also could be crohns ulcers. Ileum normal, at 25cm. Rectum has appearance of ileal pouch. Two biopsies taken. Pathology focally ulcerated and necrotic small intestinal mucosal biopsies exhibiting features suggestive of ischemia, distorted small intestinal mucosal biopsies with acute inflammation, clinically J pouch biopsy. Abdomen/Pelvis CTA (08/26/16)-----> I see no evidence for mesenteric ischemia. Rpt EGD (08/31/16) --> copious cheesy material in mid to distal esophagus, biopsy taken possible luis, antral gastritis, and large deep ulcer in distal bulb at 12:00 position. Ulcer in descending duodenum appears improved, looks more like typical PUD now. Pathology revealed antral mucosa with mild active chronic gastritis, esophageal mucosa with acute esophagitis containing budding yeast and pseudohyphae in the superficial keratin layers, consistent with luis esophagitis. A GMS stain performed on block #2 is positive for these fungal organisms. She was treated with Protonix, Carafate, Diflucan, Canasa, and Xifaxan. Rpt. EGD (09/14/16)----> 1. Gastritis antrum-biopsy, esophagitis distal esophagus-biopsy, duodenitis second and third portion of duodenum ulcer clean base duodenal bulb-communication with a cavitary area -looks old-biopsy, no active bleeding 2. Retroflexed views revealed a hiatal hernia. Biopsies duodenal mucosa without significant histopathologic abnormality, acute duodenitis with foveolar metaplasia and reactive epithelial changes, minimal chronic gastritis, negative for H. Pylori, esophageal distal biopsy with gastric type mucosa with severe chronic focally acute inflammation negative for intestinal metaplasia, dysplasia, or malignancy. Rpt imaging (09/14) revealed perforation along the proximal duodenum with fluid collection of contrast and air measuring 9.1 x 2.5 cm. S/P Abscess Drainage CT (09/15/16)----> Uncomplicated CT guided drainage, as above. Rpt. Abdomen/Pelvis CT (09/23/16)----> 1. Basically complete resolution of previously seen abscess with a few gas bubbles and mild haziness remaining the upper abdominal mesentery. 2. Slight anasarca and bilateral pleural effusions, left lung base consolidation. GI reconsulted for melena, drop in hgb (09/26/16) . Pt had reported dark tarry stools x 3 days. HH stable, no melena today. PPI, Levaquin, Flagyl, Diflucan Upper GI and Small Bowel X-Ray 09/27/16-----> Large penetrating ulcer second portion of duodenum without extravasation. Delayed gastric emptying. Gastrin level 125. Pt started having recurrent GI bleeding earlier in week- first melena and then red blood. Her anticoagulation was held and she underwent IVC filter earlier today. She had one episode of nonbloody emesis earlier today, but is has not had any further obvious blood in her stool. Dr. Hernández and Dr. Cisneros discussed case and the plan is for EGD in 2-3 months prior to possible surgery. HH 11/19.6 - Severe anemia secondary to acute blood loss. S/P 5 units PRBC. Hgb stable . - Recent luis esophagitis. This was not seen on most recent endoscopy. Diflucan. PPI - Abnormal weight loss. 20 lb weight loss over 3 months. - Ulcerative colitis. Dx 1999. S/P Total Colectomy. - Leukocytosis/Fever/Lactic acid. Low grade fever 99.0. improved - CAROL. IMPROVED - Bilateral DVT with nonocclusive thrombus within the right mid superficial femoral vein and right greater saphenous vein as well as left popliteal vein and occlusive DVT within the right posterior tibial and left peroneal veins. S/P IVC filter (had recurrent gi bleeding while on anticoagulation). - DM, Depression/Anxiety, Hyperlipidemia. Pt anxious about progress PLAN: - EGD in 2-3 months prior to consideration for any surgical intervention for large duodenal ulcer. - JONELLE - S/P IVC filter - Cont IV protonix - Carafate - Xifaxan - Cont. Flagyl, Diflucan, Levaquin - Monitor HH, transfuse as necessary - Supportive care - Further recommendations to follow based on results of above Patient seen and examined by Dr. Barreot and myself and this note is written on his behalf. (Tahmina Pappas) Physician Comments Patient Seen and examined Agree with above Continue with current supportive care Monitor labs Not much to add from a GI standpoint we will sign off (Thomas Barreto MD ) Tahmina Pappas Oct 06, 2016 13:34 Thomas Barreto MD Oct 06, 2016 22:00
--- NOTE | 2016-10-06 14:35 | PD.ONC.PN ---
Subjective Subjective Remarks Afebrile overnight Has slightly more anxiety today Reports that she is getting up and walking around her room independently and in the hallway with assistance Objective Data Date Time Temp Pulse Resp B/P Pulse Ox O2 Delivery O2 Flow Rate FiO2 10/06/16 12:11 Room Air 10/06/16 12:00 99.0 76 18 158/70 94 10/06/16 09:19 Room Air 10/06/16 08:00 98.2 70 18 125/66 96 10/06/16 07:44 78 10/06/16 04:00 97.5 62 18 120/75 98 10/06/16 00:00 98.8 82 16 118/65 95 10/05/16 20:52 Room Air 10/05/16 20:15 85 10/05/16 20:00 97.6 80 18 140/88 99 10/05/16 16:00 98.1 80 20 142/70 95 10/06/16 10/06/16 10/06/16 07:00 15:00 23:00 Intake Total 240 ml Output Total 1 ml Balance 239 ml Result Diagram: 10/06/16 0630 10/05/16 0600 Laboratory Results Laboratory Tests Test 10/06/16 06:30 White Blood Count 5.4 TH/MM3 Red Blood Count 3.05 MIL/MM3 Hemoglobin 9.0 GM/DL Hematocrit 26.6 % Mean Corpuscular Volume 87.1 FL Mean Corpuscular Hemoglobin 29.5 PG Mean Corpuscular Hemoglobin 33.8 % Concent Red Cell Distribution Width 18.1 % Platelet Count 183 TH/MM3 Mean Platelet Volume 8.0 FL Neutrophils (%) (Auto) 40.7 % Lymphocytes (%) (Auto) 38.8 % Monocytes (%) (Auto) 10.1 % Eosinophils (%) (Auto) 6.6 % Basophils (%) (Auto) 3.8 % Neutrophils # (Auto) 2.2 TH/MM3 Lymphocytes # (Auto) 2.1 TH/MM3 Monocytes # (Auto) 0.5 TH/MM3 Eosinophils # (Auto) 0.4 TH/MM3 Basophils # (Auto) 0.2 TH/MM3 CBC Comment DIFF FINAL Differential Comment Activated Partial 25.7 SEC Thromboplast Time Culture Results Microbiology Date/Time Procedure Status Source Growth 10/04/16 00:45 Stool Occult Blood (WOLF) - Final Complete Stool Stool HEMOCCULT POSITIVE Administered Medications Medications (Trade) Dose Ordered Sig/Ani Route PRN Reason Start Time Stop Time Status Last Admin Dose Admin Sodium Chloride (NS Flush) 2 ml UNSCH PRN IV FLUSH FLUSH AFTER USING IV ACCESS 09/14/16 12:30 09/19/16 14:35 Sodium Chloride (NS Flush) 2 ml BID IV FLUSH 09/14/16 21:00 10/06/16 09:26 Ondansetron HCl (Zofran Inj) 4 mg Q6H PRN IV NAUSEA 09/14/16 12:45 09/30/16 16:52 Fluoxetine HCl (PROzac) 20 mg DAILY PO 09/15/16 09:00 10/06/16 09:25 Morphine Sulfate (Morphine Inj) 4 mg Q3H PRN IV BREAKTHROUGH PAIN 09/14/16 22:30 09/25/16 13:55 Sodium Chloride (NS Inj) 10 ml BID IRRIGATION 09/15/16 21:00 10/04/16 08:35 Polyethylene Glycol (Miralax) 17 gm BID PO 09/20/16 21:00 10/04/16 08:34 Oxycodone HCl (Roxicodone Intensol Liq) 5 mg Q3H PRN PO PAIN SCALE 5 TO 10 09/21/16 12:00 10/05/16 21:09 Fluconazole (Diflucan) 400 mg DAILY PO 09/25/16 09:00 10/06/16 09:26 Metronidazole (Flagyl) 500 mg Q8HR PO 09/24/16 22:00 10/06/16 05:17 Acetaminophen 650 mg 650 mg Q4H PRN PO FEVER 09/24/16 22:00 09/24/16 22:10 Pantoprazole Sodium/Sodium Chloride (Protonix Inj/NS Inj) 100 ml @ 10 mls/hr CONTINUOUS IV 09/26/16 15:00 10/05/16 21:12 Sucralfate (Carafate Liq) 1 gm ACHS PO 09/26/16 16:00 10/06/16 12:17 Bisacodyl (Dulcolax Ec) 10 mg 18,21 PO 09/26/16 18:00 10/04/16 17:35 Levofloxacin (Levaquin) 500 mg DAILY PO 09/26/16 20:00 10/06/16 09:26 Rifaximin (Xifaxan) 550 mg BID PO 09/27/16 21:00 10/06/16 09:26 Mirtazapine (Remeron Soltab Odt) 15 mg HS PO 09/28/16 21:00 10/05/16 21:04 Sodium Chloride (NS Flush) DAILY IVF 10/01/16 09:00 10/06/16 09:26 Ferrous Sulfate (Ferrous Sulfate) 325 mg BID PO 10/02/16 13:30 10/06/16 09:25 Lorazepam (Ativan) 0.5 mg HS PO 10/05/16 21:00 10/05/16 21:04 Alprazolam (Xanax) 1 mg Q8H PRN PO ANXIETY 10/06/16 11:45 10/06/16 12:17 Objective Remarks GENERAL: Middle aged female sitting up in bed in no acute distress SKIN: Warm and dry. No oozing from lines HEAD: Normocephalic. EYES: No injection or drainage. NECK: Supple, trachea midline. CARDIOVASCULAR: Regular rate and rhythm RESPIRATORY: Breath sounds equal bilaterally. No accessory muscle use. GASTROINTESTINAL: Abdomen soft, non-tender, nondistended. EXTREMITIES: No cyanosis. Bilateral lower extremity edema much improved NEUROLOGICAL: Moving all extremities. Normal speech. No obvious focal deficit. Assessment/Plan Problem List: (1) DVT (deep venous thrombosis) Status: Acute Plan: 10/04: IVC filter placement 10/03: Coumadin stopped. IVC filter ordered in IR for GIB (2) GI bleed Status: Resolved Plan: --presented to the emergency room with two episodes of dark stool on . --CT ab/pelvis showed perforation of the proximal duodenum with fluid collection and contrast measuring 9.1 x 2.5 cm. Assessment 60y/o female with bilateral upper extremity and lower extremity deep vein thromboses + GI bleed from a duodenal ulcer. --presented to the emergency room with two episodes of dark stool on 2016. --CT ab/pelvis showed perforation of the proximal duodenum with fluid collection and contrast measuring 9.1 x 2.5 cm. Plan 1. Patient reports her stools are not quite as dark 2. Monitor CBC 3. Supportive care Attending Statement The exam, history, and the medical decision-making described in the above note were completed with the assistance of the mid-level provider. I reviewed and agree with the findings presented. I attest that I had a [id number] encounter with the patient on the same day, and personally performed and documented my assessment and findings in the medical record. Pt resting in the afternoon. No overt bleeding. Pt with competing needs. Uncertain when pt can be restarted on anticoagulation, pathophysiology of ischemic ulcer makes rebleeding likely. Problem Qualifiers (1) GI bleed: Qualified Code: K29.91 - Gastrointestinal hemorrhage associated with gastroduodenitis Veena Fowler Oct 06, 2016 14:35 Tesha Branch MD Oct 06, 2016 22:23
[2016-10-06] MEDS: ONDANSETRON HCL 4 MG/2 ML VIAL IV PRN (17:48)
[2016-10-06] MEDS: oxyCODONE HCL ORAL CONC 20 MG/ML SYRINGE PO PRN (17:48)
[2016-10-06] MEDS: BISACODYL EC 5 MG TABEC PO SCH ×2 (18:00→21:00)
[2016-10-06] MEDS: PANTOPRAZOLE INJ 80 MG in SODIUM CHLORIDE 0.9% INJ 100 ML IV SCH (18:12)
--- NOTE | 2016-10-06 20:54 | HHI.PR ---
Addendum to Inpatient Note Addendum Reason: Additional Documentation Additional Information Off service note Patient is a 60 year old female with a past history of UC, DM, IBS, duodenal ulcer, depression, and anxiety who initially presented with dark stools and abdominal pain on 09/14/16. Hemmocult positive in the ED, hemoglobin was 4.5, was transfused 2 units of PRBC and was transferred to the ICU. 2 more units of PRBCs were transfused for a total of 4 with a hemoglobin increase to 10.6. Surgery, GI were consulted. A contained perforated duodenal ulcer with abscess formation was discovered . She was placed NPO with an NG tube. Flagyl 500 IV every 8 hours, Rocephin 1 g IV every 24 hours were started. IR drainage of the abscess was performed 09/15/16 without complication. Due to fungal growth from the abscess culture, Diflucan was added. On 09/18 it was noted that there were many noncompressible veins during attempted US guided insertion of PIV. Doppler ultrasound demonstrated B/L upper and lower extremity DVTs. Hematology was consulted and it was recommended the patient begin Coumadin to prevent complications from the numerous DVTS. Intensivists were consulted to assist in multi system management. Central venous catheter was placed for possible transfusion route as peripheral lines where unreliable. Patient was maintained NPO with NG tube until 09/19 when diet was advanced to clear liquids, full liquids 09/20, then eventually a diabetic diet several days later. Critical care signed off 09/20. During this time period the paitent's hemoglobin oscillated between 8.6 and 10.4, while the patient continued to complain of dark stools. Patient was transferred off the ICU 09/24/16 due to clinical improvement. ID was consulted 09/23 for antibiotic optimization due to the recent abscess and bilateral pleural effusions with left lung base consolidation seen on CT that day. Zosyn, Flagyl and Diflucan were continued. On 09/26 there were questionable fevers and Levaquin was added to the antibiotic regimen. Psychiatry was consulted 09/27 because the patient had been occasionally emotionally labile and to offer recommendations for anxiety/depression optimization. Her Prozac was continued and augmented with Remeron at bedtime. Her Xanax was continued as well. The patient's hemoglobin continued to oscillate and began to approach 8. Melena was still present. Hematology was reconsulted. The new plan was to stop the Coumadin and insert an IVC filter, as the anticoagulation was likely playing a role in the continuation of the GI bleed. IVC filter placed 10/04 without complication. Currently observing for stabilization of H&H and may begin on LMWH in the near future. Elliott Willingham MD R1 Oct 06, 2016 13:19
[2016-10-06] MEDS: MIRTAZAPINE ODT 15 MG TAB PO SCH (22:03)
[2016-10-06] MEDS: LORazepam 0.5 MG TAB PO SCH (22:03)
[2016-10-07] VITALS: BP 118/57; PULSE 73; RESP 18; TEMP 98.7; O2SAT 95
[2016-10-07] MEDS: oxyCODONE HCL ORAL CONC 20 MG/ML SYRINGE PO PRN ×2 (00:21→17:03)
[2016-10-07 04:00] VITALS: BP 145/67; PULSE 90; RESP 16; TEMP 98.4; O2SAT 94
[2016-10-07] MEDS: metroNIDAZOLE 500 MG TAB PO SCH ×3 (06:07→21:19)
[2016-10-07] MEDS: SUCRALFATE 1 GM/10 ML CUP PO SCH ×4 (06:07→21:19)
[2016-10-07] MEDS: INSULIN ASPART SUPPLEMENTAL SCALE SQ SCH ×4 (06:09→21:22)
[2016-10-07 06:59] LABS: APTT (PATIENT) 23.8 SEC (24.3-30.1)
[2016-10-07 07:03] LABS: AUTOMATED NEUTROPHIL # 2.7 TH/MM3 (1.8-7.7); BASOPHIL # 0.2 TH/MM3 (0-0.2); BASOPHIL % 2.4 % (0.0-2.0); EOSINOPHIL # 0.4 TH/MM3 (0-0.4); HEMO FLAGS DIFF FINAL; LYMPH % 42.5 % (9.0-44.0); MEAN CELL VOLUME 89.3 FL (80.0-100.0); MEAN CORPUSCULAR HEMOGLOBIN 29.6 PG (27.0-34.0); MEAN CORPUSCULAR HGB CONC 33.2 % (32.0-36.0); MONO % 9.9 % (0.0-8.0); NEUT % 39.2 % (16.0-70.0); PLATELET COUNT 186 TH/MM3 (150-450); RED BLOOD COUNT 3.25 MIL/MM3 (4.00-5.30); RED CELL DISTRIBUTION WIDTH 18.6 % (11.6-17.2)
[2016-10-07 07:18] LABS: BICARBONATE 21.6 MEQ/L (21.0-32.0)
[2016-10-07 07:26] LABS: POTASSIUM 2.4 MEQ/L (3.5-5.1)
[2016-10-07 07:49] LABS: CALCIUM-PROTEIN CORRECTED 7.1 MG/DL (8.5-10.1)
[2016-10-07 08:00] VITALS: BP 125/76; PULSE 67; PULSE 75; RESP 18; TEMP 99.3; O2SAT 96
[2016-10-07] MEDS: POLYETHYLENE GLYCOL 17 GM PKG PO SCH ×2 (09:00→21:00)
--- NOTE | 2016-10-07 09:02 | HHI.FPPN ---
Subjective Remarks Patient reports feeling well. Complete ROS normal. She is ambulating without difficulty, however feels lightheaded when raising from a seated position. Having some mild discomfort over central line. Tolerating whole meals. Normal BMs today. No blood. Tolerated IVC filter normally. (Anshu Awad MD, R3) Objective Vitals Vital Signs Date Time Temp Pulse Resp B/P Pulse Ox O2 Delivery O2 Flow Rate FiO2 10/07/16 08:00 99.3 67 18 125/76 96 10/07/16 04:00 98.4 90 16 145/67 94 10/07/16 00:00 98.7 73 18 118/57 95 10/07/16 00:00 Room Air 10/06/16 20:26 95 10/06/16 20:00 98.2 84 18 147/69 98 10/06/16 20:00 Room Air 10/06/16 16:40 Room Air 10/06/16 16:00 98.6 83 18 139/68 95 10/06/16 12:11 Room Air 10/06/16 12:00 99.0 76 18 158/70 94 10/06/16 09:19 Room Air I/O 10/06/16 10/06/16 10/06/16 10/07/16 10/07/16 10/07/16 07:00 15:00 23:00 07:00 15:00 23:00 Intake Total 240 ml 820 ml 728 ml 240 ml Output Total 1 ml Balance 239 ml 820 ml 728 ml 240 ml Intake Oral 240 ml 720 ml 480 ml 240 ml IV Total 100 ml 248 ml Output Urine Total 1 ml # Voids 2 3 1 # Bowel Movements 1 0 1 (Anshu Awad MD, R3) Result Diagram: 10/07/1630 10/07/16 0630 Objective Remarks GENERAL: This is an elderly female lying in bed, pleasant SKIN: Cool and dry. HEENT: Atraumatic. Normocephalic. Pupils equal round and reactive. Extraocular motions intact. No scleral icterus. No injection or drainage. Trachea midline. CARDIOVASCULAR: Regular rate and rhythm, normal S1/2 no M/R/G RESPIRATORY: Clear to auscultation. Good air movement. No wheezes, rales, or rhonchi. GASTROINTESTINAL: Abdomen soft, non-tender, improving. No guarding. Non- distended. No rebound. No masses appreciated. BS+. Wound examined, healing well. MUSCULOSKELETAL: Edema in upper and lower extremities, trace in upper extremities, 2+ in lower extremities. Mildly tender B/L. No erythema. No unilateral asymmetry. PT/DP pulses 2+ B/L NEUROLOGICAL: Awake and alert. Motor and sensory grossly within normal limits. Normal speech. Procedures Central Line placement 09/26/16, removed 09/27/16, replaced on 09/30/16. IVC filter placed 10/04/16 (Anshu Awad MD, R3) A/P Assessment and Plan This is a 60-year-old female with history of ulcerative colitis and ulcers, presents with severe anemia found to have perforated ulcer and abscess formation. Gastroenterology and colorectal surgery consulted. IR drainage completed 09/15, uncomplicated. Abscess appears resolved on CT (09/23). Central line placed 09/26/16 due to difficulty in obtaining PIV access as well as thrombi in upstream vessels causing immediate infiltration following successful PIV insertion. IVC filter placed 10/04/2016 - tolerated procedure well. Dispo: Transitioning from IV medication (protonix) to PO, stopping ABX coverage after 2 weeks (10/10), and re-starting anticoagulation therapy as guided by hematology. Discharge Planning Discharge pending GI, hematology clearance (Anshu Awad MD, R3) Attending Attestation Patient seen and examined. Case reviewed and discussed with Dr. Awad. Agree with plan of care as discussed with me and documented in the resident note. (Mary Keys MD) Problem List: (1) Perforated duodenal ulcer Status: Acute Plan: CT scan 09/14 demonstrates a perforation of the duodenum with an abnormal fluid collection with contrast anterior to the mesenteric vasculature measuring 9.12.5 cm with adjacent stranding in the mesentery. There is no free perforation into the abdominal cavity. Hemoccult 10/04 positive - repeat 10/07. GI consulted, appreciate recommendations and interventions -Continue MiraLAX -Continue Protonix - transition to PO. -Monitor H/H - stable at 9.0 -Gen. surgery was re-consulted due to concern for possible rebleeding as H& Hs were downtrending -Recommend EGD in 2-3 months with possible surgery -IVC filter tolerated well, in-place within Inferior vena cava on Xray General surgery reconsulted, appreciate recommendations -Coumadin is on hold - per hematology may consider prophylactic Lovenox if Hemoccult negative. -IVC filter placed 10/04/16 -Hemoccult 10/04 positive Medications: Levaquin 500mg po daily (09/26 - ) Diflucan 400mg po daily (09/25- ) Metronidazole 500mg IV Q8hrs (09/14- ) The above to be continued for 2 weeks Rifaximin 550 mg PO BID (09/27 - ) Zosyn 3.375 IV daily discontinued (09/15-08/26 ) Pain control: Roxycodone, IV morphine for breakthrough (2) Hypokalemia Status: Acute Plan: Potassium 2.4 -- will replace with 40 mEq IV x 1. Recheck at 12:00. Check magnesium and replete as necessary. (3) Abscess Status: Acute Plan: CT scan 09/14 shows 9.12.5 cm fluid collection anterior to the mesenteric vasculature with adjacent stranding in the mesentery. IR drainage performed 09/[address] 09/23 "Basically complete resolution of previously seen abscess with a few gas bubbles and mild haziness remaining the upper abdominal mesentery." Drain has been removed. See ABX above (4) GI bleed Status: Resolved Plan: Resolved See plan for perforated lateral ulcer above Status post 4 units packed red blood cells (5) DVT (deep venous thrombosis) Status: Acute Plan: Patient found to have numerous DVTs of the upper and lower extremities. Hematology consulted, appreciate recommendations: -Status post IVC filter placed (10/04/16) -We'll wait a few days and restart anticoagulation (6) Pleural effusion Status: Acute Plan: Bilateral pleural effusions with left lung consolidation on CT - ID consulted for antibiotic optimization, see above - Pulmonary toilet, Incentive spirometer (7) Hypoalbuminemia Status: Acute Plan: Albumin low at 2.8 on 10/04 -Likely to improve as pts diet progresses -Albumin 5% 12.5 gm IV x1 today -Continue to monitor -Consider additional albumin as needed -Continue to monitor (8) Depression with anxiety Status: Acute Plan: * Consulted psychiatry, appreciated recommendations * Remeron 15 mg HS * Continue fluoxetine 20 mg po daily * Lorazepam 0.5 mg at bedtime prn anxiety (9) Diabetes Status: Acute Plan: History of chronic diabetes. On insulin at home. -Low dose sliding scale while inpatient, blood sugars have been well controlled. (10) FEN Status: Acute Plan: Fluids:None, pt currently tolerating PO Electrolytes: Continue to monitor Nutrition: Clear diet, consider advancing DVT ppx: held for GI bleed. GI ppx: Protonix drip (Anshu Awad MD, R3) Problem Qualifiers (1) GI bleed: Qualified Code: K29.91 - Gastrointestinal hemorrhage associated with gastroduodenitis (2) Diabetes: Qualified Code: E11.9 - Type 2 diabetes mellitus without complication, with long-term current use of insulin Anshu Awad MD, R3 Oct 07, 2016 09:02 Mary Keys MD Oct 08, 2016 08:30
[2016-10-07] MEDS: CALCIUM CARBONATE 1.25 GM (CA 500 MG) TAB PO SCH ×2 (09:47→21:18)
[2016-10-07] MEDS: LEVOFLOXACIN 500 MG TAB PO SCH (09:47)
[2016-10-07] MEDS: RIFAXIMIN 550 MG TAB PO SCH ×2 (09:48→21:19)
[2016-10-07] MEDS: FLUCONAZOLE 200 MG TAB PO SCH (09:48)
[2016-10-07] MEDS: POTASSIUM CHLOR 20 MEQ PREMIX 100 ML IV SCH ×2 (09:48→10:28)
[2016-10-07] MEDS: FERROUS SULFATE 325 MG (65 MG ELEMENTAL IRON) TAB PO SCH ×2 (09:48→21:18)
[2016-10-07] MEDS: FLUoxetine HCL 20 MG CAP PO SCH (09:48)
[2016-10-07] MEDS: SODIUM CHLORIDE 0.9% FLUSH 10 ML FLUSH IV FLUSH SCH ×2 (09:53→21:00)
[2016-10-07] MEDS: SODIUM CHLORIDE 0.9% FLUSH 10 ML FLUSH IVF SCH (09:57)
--- NOTE | 2016-10-07 10:03 | PD.ONC.PN ---
Subjective Subjective Remarks Afebrile overnight. Patient resting in bed in nad. Just took her pills, so he is feeling a bit queasy. feels the swelling in her legs has improved. Objective Data Date Time Temp Pulse Resp B/P Pulse Ox O2 Delivery O2 Flow Rate FiO2 10/07/16 08:00 99.3 67 18 125/76 96 10/07/16 04:00 98.4 90 16 145/67 94 10/07/16 00:00 98.7 73 18 118/57 95 10/07/16 00:00 Room Air 10/06/16 20:26 95 10/06/16 20:00 98.2 84 18 147/69 98 10/06/16 20:00 Room Air 10/06/16 16:40 Room Air 10/06/16 16:00 98.6 83 18 139/68 95 10/06/16 12:11 Room Air 10/06/16 12:00 99.0 76 18 158/70 94 Result Diagram: 10/07/16 0630 10/07/16 0630 Laboratory Results Laboratory Tests Test 10/07/16 06:30 White Blood Count 7.0 TH/MM3 Red Blood Count 3.25 MIL/MM3 Hemoglobin 9.6 GM/DL Hematocrit 29.0 % Mean Corpuscular Volume 89.3 FL Mean Corpuscular Hemoglobin 29.6 PG Mean Corpuscular Hemoglobin 33.2 % Concent Red Cell Distribution Width 18.6 % Platelet Count 186 TH/MM3 Mean Platelet Volume 8.4 FL Neutrophils (%) (Auto) 39.2 % Lymphocytes (%) (Auto) 42.5 % Monocytes (%) (Auto) 9.9 % Eosinophils (%) (Auto) 6.0 % Basophils (%) (Auto) 2.4 % Neutrophils # (Auto) 2.7 TH/MM3 Lymphocytes # (Auto) 3.0 TH/MM3 Monocytes # (Auto) 0.7 TH/MM3 Eosinophils # (Auto) 0.4 TH/MM3 Basophils # (Auto) 0.2 TH/MM3 CBC Comment DIFF FINAL Differential Comment Activated Partial 23.8 SEC Thromboplast Time Sodium Level 142 MEQ/L Potassium Level 2.4 MEQ/L Chloride Level 110 MEQ/L Carbon Dioxide Level 21.6 MEQ/L Anion Gap 10 MEQ/L Blood Urea Nitrogen 2 MG/DL Creatinine 0.71 MG/DL Estimat Glomerular Filtration 84 ML/MIN Rate Random Glucose 108 MG/DL Calcium Level 6.5 MG/DL Protein Corrected Calcium 7.1 MG/DL Total Protein 5.8 GM/DL Administered Medications Medications (Trade) Dose Ordered Sig/Ani Route PRN Reason Start Time Stop Time Status Last Admin Dose Admin Sodium Chloride (NS Flush) 2 ml UNSCH PRN IV FLUSH FLUSH AFTER USING IV ACCESS 09/14/16 12:30 09/19/16 14:35 Sodium Chloride (NS Flush) 2 ml BID IV FLUSH 09/14/16 21:00 10/07/16 09:53 Ondansetron HCl (Zofran Inj) 4 mg Q6H PRN IV NAUSEA 09/14/16 12:45 10/06/16 17:48 Fluoxetine HCl (PROzac) 20 mg DAILY PO 09/15/16 09:00 10/07/16 09:48 Morphine Sulfate (Morphine Inj) 4 mg Q3H PRN IV BREAKTHROUGH PAIN 09/14/16 22:30 09/25/16 13:55 Sodium Chloride (NS Inj) 10 ml BID IRRIGATION 09/15/16 21:00 10/04/16 08:35 Polyethylene Glycol (Miralax) 17 gm BID PO 09/20/16 21:00 10/04/16 08:34 Oxycodone HCl (Roxicodone Intensol Liq) 5 mg Q3H PRN PO PAIN SCALE 5 TO 10 09/21/16 12:00 10/07/16 00:21 Fluconazole (Diflucan) 400 mg DAILY PO 09/25/16 09:00 10/07/16 09:48 Metronidazole (Flagyl) 500 mg Q8HR PO 09/24/16 22:00 10/07/16 06:07 Acetaminophen 650 mg 650 mg Q4H PRN PO FEVER 09/24/16 22:00 09/24/16 22:10 Pantoprazole Sodium/Sodium Chloride (Protonix Inj/NS Inj) 100 ml @ 10 mls/hr CONTINUOUS IV 09/26/16 15:00 10/06/16 18:12 Sucralfate (Carafate Liq) 1 gm ACHS PO 09/26/16 16:00 10/07/16 09:47 Bisacodyl (Dulcolax Ec) 10 mg 18,21 PO 09/26/16 18:00 10/04/16 17:35 Levofloxacin (Levaquin) 500 mg DAILY PO 09/26/16 20:00 10/07/16 09:47 Rifaximin (Xifaxan) 550 mg BID PO 09/27/16 21:00 10/07/16 09:48 Mirtazapine (Remeron Soltab Odt) 15 mg HS PO 09/28/16 21:00 10/06/16 22:03 Sodium Chloride (NS Flush) DAILY IVF 10/01/16 09:00 10/07/16 09:57 Ferrous Sulfate (Ferrous Sulfate) 325 mg BID PO 10/02/16 13:30 10/07/16 09:48 Lorazepam (Ativan) 0.5 mg HS PO 10/05/16 21:00 10/06/16 22:03 Alprazolam 1 mg 1 mg Q8H PRN PO ANXIETY 10/06/16 11:45 10/06/16 12:17 Potassium Chloride (KCl 20 Meq Premix Inj) 100 ml @ 50 mls/hr Q2H IV 10/07/16 08:15 10/07/16 12:14 10/07/16 09:48 Calcium Carbonate (Oscal) 1,000 mg BID PO 10/07/16 09:00 10/07/16 09:47 Objective Remarks GENERAL: Middle aged female upright in bed in nad. SKIN: Warm and dry. HEAD: Normocephalic. EYES: No injection or drainage. NECK: Supple, trachea midline. CARDIOVASCULAR: Regular rate and rhythm RESPIRATORY: Breath sounds equal bilaterally. No accessory muscle use. GASTROINTESTINAL: Abdomen soft, non-tender, nondistended. EXTREMITIES: No cyanosis NEUROLOGICAL: aox3. normal speech. moving all extremities. Assessment/Plan Problem List: (1) DVT (deep venous thrombosis) Status: Acute Plan: 10/07: hgb stable. would not recommend resuming full dose anticoagulation d/t high risk of bleeding. would only recommend starting prophylactic dose ac with either Lovenox or heparin. 10/04: IVC filter placement 10/03: Coumadin stopped. IVC filter ordered in IR for GIB (2) GI bleed Status: Resolved Plan: --presented to the emergency room with two episodes of dark stool on . --CT ab/pelvis showed perforation of the proximal duodenum with fluid collection and contrast measuring 9.1 x 2.5 cm. Assessment 60y/o female with bilateral upper extremity and lower extremity deep vein thromboses + GI bleed from a duodenal ulcer. --presented to the emergency room with two episodes of dark stool on 2016. --CT ab/pelvis showed perforation of the proximal duodenum with fluid collection and contrast measuring 9.1 x 2.5 cm. Plan 1. monitor CBC 2. stool Hemoccult today Attending Statement Discussed above. Cont hold anticoagulation. Problem Qualifiers (1) GI bleed: Qualified Code: K29.91 - Gastrointestinal hemorrhage associated with gastroduodenitis Talita Issa Oct 07, 2016 10:03 Tesha Branch MD Oct 07, 2016 22:03
[2016-10-07 12:00] VITALS: BP 131/60; PULSE 79; RESP 18; TEMP 99; O2SAT 93
[2016-10-07] MEDS ORDERED: POTASSIUM CHLORIDE 10 MEQ CONTROLLED RELEASE TAB PO ONE (12:45)
--- NOTE | 2016-10-07 13:44 | RADRPT ---
EXAM DATE/TIME: 10/07/2016 13:06 [facility] COMPARISON: CHEST SINGLE AP, September 28, 2016, 11:09. INDICATIONS : Check position of central line. MEDICAL HISTORY : Diabetes mellitus type II. Pumonary embolism. SURGICAL HISTORY : None. ENCOUNTER: Initial ACUITY: 3 weeks PAIN SCORE: 0/10 LOCATION: chest FINDINGS: Portable upright expiratory view of the chest demonstrates a normal-sized cardiac silhouette. A line overlies the right chest with distal tip overlying the right mid clavicle, likely in the right subcla vian vein. No pneumothorax is visualized. CONCLUSION: 1. No pneumothorax is visualized. 2. A line overlies the right chest the distal tip is likely in the right subclavian vein. Angel Perez MD on October 07, 2016 at 13:41 Board Certified Radiologist. This report was verified electronically.
[2016-10-07] MEDS: ALPRAZolam 1 MG TAB PO PRN (15:25)
[2016-10-07 16:00] VITALS: BP 134/68; PULSE 77; RESP 18; TEMP 98.2; O2SAT 97
[2016-10-07] MEDS: BISACODYL EC 5 MG TABEC PO SCH ×2 (17:06→21:00)
[2016-10-07 20:00] VITALS: BP 132/64; PULSE 70; PULSE 81; RESP 20; TEMP 97.5; O2SAT 96
[2016-10-07] MEDS: SODIUM CHLORIDE 0.9% 10 ML VIAL IRRIGATION SCH (21:00)
[2016-10-07] MEDS: PANTOPRAZOLE SOD 40 MG DELAYED RELEASE TAB PO SCH (21:18)
[2016-10-07] MEDS: MIRTAZAPINE ODT 15 MG TAB PO SCH (21:18)
[2016-10-07] MEDS: LORazepam 0.5 MG TAB PO SCH (21:19)
[2016-10-07 21:28] LABS: MAGNESIUM 1.3 MG/DL (1.5-2.5)
[2016-10-08] VITALS: BP 128/72; PULSE 87; RESP 18; TEMP 98.7; O2SAT 95
[2016-10-08 04:00] VITALS: BP 135/72; PULSE 85; RESP 18; TEMP 98.1; O2SAT 93
[2016-10-08] MEDS: metroNIDAZOLE 500 MG TAB PO SCH ×2 (05:33→13:39)
[2016-10-08] MEDS: SUCRALFATE 1 GM/10 ML CUP PO SCH ×2 (05:33→13:38)
[2016-10-08] MEDS: INSULIN ASPART SUPPLEMENTAL SCALE SQ SCH ×2 (07:00→11:00)
[2016-10-08 08:00] VITALS: BP 141/69; PULSE 75; RESP 18; TEMP 99; O2SAT 96
[2016-10-08 08:22] LABS: AUTOMATED NEUTROPHIL # 2.9 TH/MM3 (1.8-7.7); BASOPHIL # 0.2 TH/MM3 (0-0.2); BASOPHIL % 2.5 % (0.0-2.0); EOSINOPHIL # 0.5 TH/MM3 (0-0.4); EOSINOPHIL % 8.2 % (0.0-4.0); HEMATOCRIT 30.4 % (35.0-46.0); HEMO FLAGS DIFF FINAL; LYMPH % 34.3 % (9.0-44.0); LYMPHOCYTE # 2.3 TH/MM3 (1.0-4.8); MEAN CELL VOLUME 89.9 FL (80.0-100.0); MEAN CORPUSCULAR HEMOGLOBIN 28.9 PG (27.0-34.0); MEAN CORPUSCULAR HGB CONC 32.2 % (32.0-36.0); MONO % 10.7 % (0.0-8.0); NEUT % 44.3 % (16.0-70.0); PLATELET COUNT 193 TH/MM3 (150-450); RED BLOOD COUNT 3.39 MIL/MM3 (4.00-5.30); RED CELL DISTRIBUTION WIDTH 19.4 % (11.6-17.2); WHITE BLOOD COUNT 6.6 TH/MM3 (4.0-11.0)
[2016-10-08 08:29] LABS: APTT (PATIENT) 24.6 SEC (24.3-30.1)
--- NOTE | 2016-10-08 08:34 | HHI.FPPN ---
Subjective Remarks Mrs. Lester, is frustrated this morning. She says that she is not sure why she is always getting poked with needles. Otherwise, she did have an episode of sweating overnight, but no recorded fevers. This was similar to her menopausal symptoms. Denies any difficulty with urination, bowel movements, breathing, palpitations, or chest pain. She is able to ambulate throughout the room, without feeling lightheaded. She is tolerating whole meals. She reports good support at home from her boyfriend. Objective Vitals Vital Signs Date Time Temp Pulse Resp B/P Pulse Ox O2 Delivery O2 Flow Rate FiO2 10/08/16 04:00 Room Air 10/08/16 04:00 98.1 85 18 135/72 93 10/08/16 00:00 98.7 87 18 128/72 95 10/08/16 00:00 Room Air 10/07/16 20:00 97.5 81 20 132/64 96 10/07/16 20:00 70 10/07/16 20:00 Room Air 10/07/16 16:00 98.2 77 18 134/68 97 10/07/16 12:00 99.0 79 18 131/60 93 I/O 10/07/16 10/07/16 10/07/16 10/08/16 10/08/16 10/08/16 07:00 15:00 23:00 07:00 15:00 23:00 Intake Total 240 ml 480 ml 240 ml 120 ml Balance 240 ml 480 ml 240 ml 120 ml Intake Oral 240 ml 480 ml 240 ml 120 ml # Voids 1 2 3 2 # Bowel Movements 1 0 0 0 Result Diagram: 10/08/16 0743 10/07/16 0630 Imaging Last 72 hours Impressions Chest X-Ray 10/07/16 0000 Signed Impressions: Service Date/Time: Friday, October 07, 2016 13:06 - CONCLUSION: 1. No pneumothorax is visualized. 2. A line overlies the right chest the distal tip is likely in the right subclavian vein. Angel Perez MD Objective Remarks GENERAL: This is an elderly female lying in bed, pleasant SKIN: Cool and dry. HEENT: Atraumatic. Normocephalic. Pupils equal round and reactive. Extraocular motions intact. No scleral icterus. No injection or drainage. Trachea midline. CARDIOVASCULAR: Regular rate and rhythm, normal S1/2 no M/R/G RESPIRATORY: Clear to auscultation. Good air movement. No wheezes, rales, or rhonchi. GASTROINTESTINAL: Abdomen soft, non-tender, improving. No guarding. Non- distended. No rebound. No masses appreciated. BS+. Wound examined, healing well. MUSCULOSKELETAL: Edema in upper and lower extremities, trace in upper extremities, 2+ in lower extremities. Mildly tender B/L. No erythema. No unilateral asymmetry. PT/DP pulses 2+ B/L NEUROLOGICAL: Awake and alert. Motor and sensory grossly within normal limits. Normal speech. Procedures Central Line placement 09/26/16, removed 09/27/16, replaced on 09/30/16. IVC filter placed 10/04/16 A/P Assessment and Plan This is a 60-year-old female with history of ulcerative colitis and ulcers, presents with severe anemia found to have perforated ulcer and abscess formation. Gastroenterology and colorectal surgery consulted. IR drainage completed 09/15, uncomplicated. Abscess appears resolved on CT (09/23). Central line placed 09/26/16 due to difficulty in obtaining PIV access as well as thrombi in upstream vessels causing immediate infiltration following successful PIV insertion. IVC filter placed 10/04/2016 - tolerated procedure well. Dispo: Transitioning from IV medication (protonix) to PO, stopping ABX coverage after 2 weeks (10/10). Dispo: Stable for discharge. Discharge Planning Discharge pending GI, hematology clearance Problem List: (1) Perforated duodenal ulcer Status: Acute Plan: CT scan 09/14 demonstrates a perforation of the duodenum with an abnormal fluid collection with contrast anterior to the mesenteric vasculature measuring 9.12.5 cm with adjacent stranding in the mesentery. There is no free perforation into the abdominal cavity. Hemoccult 10/04 positive - repeat 10/07 negative. GI consulted, appreciate recommendations and interventions -Continue MiraLAX -Continue Protonix - transition to PO. -Monitor H/H - stable at 9.0 -Gen. surgery was re-consulted due to concern for possible rebleeding as H& Hs were downtrending -Recommend EGD in 2-3 months with possible surgery -IVC filter tolerated well, in-place within Inferior vena cava on Xray General surgery reconsulted, appreciate recommendations -Coumadin is on hold - per hematology is very high risk for re-bleeding given ulcer in distal duodenum. Recommend against restarting anticoagulation given these risks. -IVC filter placed 10/04/16 Medications: Levaquin 500mg po daily (09/26 - ) Diflucan 400mg po daily (09/25- ) Metronidazole 500mg IV Q8hrs (09/14- ) The above to be continued for 2 weeks Rifaximin 550 mg PO BID (09/27 - ) Zosyn 3.375 IV daily discontinued (09/15-08/26 ) Pain control: Roxycodone, IV morphine for breakthrough (2) Hypokalemia Status: Acute Plan: Likely secondary to diarrhea. Potassium on 10/07 was 2.4 -- replete with 80 mEq IV x 1. Corrected to 3.2 on . (3) Abscess Status: Acute Plan: CT scan 09/14 shows 9.12.5 cm fluid collection anterior to the mesenteric vasculature with adjacent stranding in the mesentery. IR drainage performed 09/[address] 09/23 "Basically complete resolution of previously seen abscess with a few gas bubbles and mild haziness remaining the upper abdominal mesentery." Drain has been removed. See ABX above (4) GI bleed Status: Resolved Plan: Resolved See plan for perforated lateral ulcer above Status post 4 units packed red blood cells (5) DVT (deep venous thrombosis) Status: Acute Plan: Patient found to have numerous DVTs of the upper and lower extremities. Hematology consulted, appreciate recommendations: -Status post IVC filter placed (10/04/16) (6) Hypoalbuminemia Status: Acute Plan: Albumin low at 2.6 on 10/08 -Likely to improve as pts diet progresses -Continue to monitor -Consider additional albumin as needed -Continue to monitor (7) Depression with anxiety Status: Acute Plan: * Consulted psychiatry, appreciated recommendations * Remeron 15 mg HS * Continue fluoxetine 20 mg po daily * Lorazepam 0.5 mg at bedtime prn anxiety (8) Diabetes Status: Acute Plan: History of chronic diabetes. On insulin at home. -Low dose sliding scale while inpatient, blood sugars have been well controlled. (9) FEN Status: Acute Plan: Fluids:None, pt currently tolerating PO Electrolytes: Continue to monitor Nutrition: Clear diet, consider advancing DVT ppx: held for GI bleed. GI ppx: Protonix PO. Dispo: Medcially clear for discharge. Follow up CBC in 2-3 days. Follow up with PCP in 2-3 days. Follow up with hematology in 2 weeks. Follow up with general surgery in 2-3 months. Warning signs and symptoms reviewed in detail with the patient. She feels ready to go home. Spoke with PT who agree that she is able to ambulate independently, but would benefit from home health care. Problem Qualifiers (1) GI bleed: Qualified Code: K29.91 - Gastrointestinal hemorrhage associated with gastroduodenitis (2) Diabetes: Qualified Code: E11.9 - Type 2 diabetes mellitus without complication, with long-term current use of insulin Anshu Awad MD, R3 Oct 08, 2016 08:34
[2016-10-08] MEDS ORDERED: MAGNESIUM SULFATE 4 GM PREMIX 100 ML IV ONE (08:45)
[2016-10-08] MEDS ORDERED: MAGNESIUM SULFATE 1 GM PREMIX 100 ML IV SCH (08:46)
[2016-10-08 08:49] LABS: ANION GAP 6 MEQ/L (5-15); AST (GOT) 16 U/L (15-37); BICARBONATE 27.6 MEQ/L (21.0-32.0); BLOOD UREA NITROGEN 4 MG/DL (7-18); CHLORIDE 106 MEQ/L (98-107); GLOMERULAR FILTRATION RATE 56 ML/MIN (>89); MAGNESIUM 1.5 MG/DL (1.5-2.5); POTASSIUM 3.2 MEQ/L (3.5-5.1); SODIUM (NA) 140 MEQ/L (136-145)
[2016-10-08 08:51] LABS: ALKALINE PHOSPHATASE 70 U/L (45-117); ALT (GPT) 8 U/L (10-53); TOTAL BILIRUBIN ADULT 0.8 MG/DL (0.2-1.0)
[2016-10-08] MEDS: SODIUM CHLORIDE 0.9% 10 ML VIAL IRRIGATION SCH (09:00)
[2016-10-08] MEDS: SODIUM CHLORIDE 0.9% FLUSH 10 ML FLUSH IVF SCH (09:00)
[2016-10-08] MEDS: SODIUM CHLORIDE 0.9% FLUSH 10 ML FLUSH IV FLUSH SCH (09:00)
[2016-10-08] MEDS: POLYETHYLENE GLYCOL 17 GM PKG PO SCH (09:00)
[2016-10-08] MEDS: FLUCONAZOLE 200 MG TAB PO SCH (09:47)
[2016-10-08] MEDS: FLUoxetine HCL 20 MG CAP PO SCH (09:48)
[2016-10-08] MEDS: FERROUS SULFATE 325 MG (65 MG ELEMENTAL IRON) TAB PO SCH (09:48)
[2016-10-08] MEDS: PANTOPRAZOLE SOD 40 MG DELAYED RELEASE TAB PO SCH (09:48)
[2016-10-08] MEDS: LEVOFLOXACIN 500 MG TAB PO SCH (09:48)
[2016-10-08] MEDS: CALCIUM CARBONATE 1.25 GM (CA 500 MG) TAB PO SCH (09:48)
[2016-10-08] MEDS: RIFAXIMIN 550 MG TAB PO SCH (09:48)
[2016-10-08] MEDS: ALPRAZolam 1 MG TAB PO PRN (09:56)
--- NOTE | 2016-10-08 10:38 | PD.ONC.PN ---
Subjective Subjective Remarks Afebrile overnight. Patient eager to go home. No other complaints. No obvious bleeding. Objective Data Date Time Temp Pulse Resp B/P Pulse Ox O2 Delivery O2 Flow Rate FiO2 10/08/16 08:00 99.0 75 18 141/69 96 10/08/16 04:00 Room Air 10/08/16 04:00 98.1 85 18 135/72 93 10/08/16 00:00 98.7 87 18 128/72 95 10/08/16 00:00 Room Air 10/07/16 20:00 97.5 81 20 132/64 96 10/07/16 20:00 70 10/07/16 20:00 Room Air 10/07/16 16:00 98.2 77 18 134/68 97 10/07/16 12:00 99.0 79 18 131/60 93 10/08/16 10/08/16 10/08/16 06:59 14:59 22:59 Intake Total 120 ml Balance 120 ml Result Diagram: 10/08/16 0743 10/08/16 0743 Laboratory Results Laboratory Tests Test 10/08/16 07:43 White Blood Count 6.6 TH/MM3 Red Blood Count 3.39 MIL/MM3 Hemoglobin 9.8 GM/DL Hematocrit 30.4 % Mean Corpuscular Volume 89.9 FL Mean Corpuscular Hemoglobin 28.9 PG Mean Corpuscular Hemoglobin 32.2 % Concent Red Cell Distribution Width 19.4 % Platelet Count 193 TH/MM3 Mean Platelet Volume 7.9 FL Neutrophils (%) (Auto) 44.3 % Lymphocytes (%) (Auto) 34.3 % Monocytes (%) (Auto) 10.7 % Eosinophils (%) (Auto) 8.2 % Basophils (%) (Auto) 2.5 % Neutrophils # (Auto) 2.9 TH/MM3 Lymphocytes # (Auto) 2.3 TH/MM3 Monocytes # (Auto) 0.7 TH/MM3 Eosinophils # (Auto) 0.5 TH/MM3 Basophils # (Auto) 0.2 TH/MM3 CBC Comment DIFF FINAL Differential Comment Activated Partial 24.6 SEC Thromboplast Time Sodium Level 140 MEQ/L Potassium Level 3.2 MEQ/L Chloride Level 106 MEQ/L Carbon Dioxide Level 27.6 MEQ/L Anion Gap 6 MEQ/L Blood Urea Nitrogen 4 MG/DL Creatinine 1.00 MG/DL Estimat Glomerular Filtration 56 ML/MIN Rate Random Glucose 136 MG/DL Calcium Level 8.2 MG/DL Magnesium Level 1.5 MG/DL Total Bilirubin 0.8 MG/DL Aspartate Amino Transf 16 U/L (AST/SGOT) Alanine Aminotransferase 8 U/L (ALT/SGPT) Alkaline Phosphatase 70 U/L Total Protein 6.8 GM/DL Albumin 2.6 GM/DL Culture Results Microbiology Date/Time Procedure Status Source Growth 10/07/16 10:45 Stool Occult Blood ([facility]OL[facility]) - Final Complete Stool Stool HEMOCCULT NEGATIVE Administered Medications Medications (Trade) Dose Ordered Sig/Ani Route PRN Reason Start Time Stop Time Status Last Admin Dose Admin Sodium Chloride (NS Flush) 2 ml UNSCH PRN IV FLUSH FLUSH AFTER USING IV ACCESS 09/14/16 12:30 09/19/16 14:35 Sodium Chloride (NS Flush) 2 ml BID IV FLUSH 09/14/16 21:00 10/07/16 09:53 Ondansetron HCl (Zofran Inj) 4 mg Q6H PRN IV NAUSEA 09/14/16 12:45 10/06/16 17:48 Fluoxetine HCl (PROzac) 20 mg DAILY PO 09/15/16 09:00 10/08/16 09:48 Morphine Sulfate (Morphine Inj) 4 mg Q3H PRN IV BREAKTHROUGH PAIN 09/14/16 22:30 09/25/16 13:55 Sodium Chloride (NS Inj) 10 ml BID IRRIGATION 09/15/16 21:00 10/04/16 08:35 Polyethylene Glycol (Miralax) 17 gm BID PO 09/20/16 21:00 10/04/16 08:34 Oxycodone HCl (Roxicodone Intensol Liq) 5 mg Q3H PRN PO PAIN SCALE 5 TO 10 09/21/16 12:00 10/07/16 17:03 Fluconazole (Diflucan) 400 mg DAILY PO 09/25/16 09:00 10/08/16 09:47 Metronidazole (Flagyl) 500 mg Q8HR PO 09/24/16 22:00 10/08/16 05:33 Acetaminophen (Tylenol) 650 mg Q4H PRN PO FEVER 09/24/16 22:00 09/24/16 22:10 Sucralfate (Carafate Liq) 1 gm ACHS PO 09/26/16 16:00 10/08/16 05:33 Bisacodyl (Dulcolax Ec) 10 mg 18,21 PO 09/26/16 18:00 10/04/16 17:35 Levofloxacin (Levaquin) 500 mg DAILY PO 09/26/16 20:00 10/08/16 09:48 Rifaximin (Xifaxan) 550 mg BID PO 09/27/16 21:00 10/08/16 09:48 Mirtazapine (Remeron Soltab Odt) 15 mg HS PO 09/28/16 21:00 10/07/16 21:18 Sodium Chloride (NS Flush) DAILY IVF 10/01/16 09:00 10/07/16 09:57 Ferrous Sulfate (Ferrous Sulfate) 325 mg BID PO 10/02/16 13:30 10/08/16 09:48 Lorazepam (Ativan) 0.5 mg HS PO 10/05/16 21:00 10/07/16 21:19 Alprazolam (Xanax) 1 mg Q8H PRN PO ANXIETY 10/06/16 11:45 10/08/16 09:56 Calcium Carbonate (Oscal) 1,000 mg BID PO 10/07/16 09:00 10/08/16 09:48 Pantoprazole Sodium (Protonix) 40 mg Q12HR PO 10/07/16 21:00 10/08/16 09:48 Objective Remarks GENERAL: Middle aged female sitting up in bed in nad SKIN: Warm and dry. HEAD: Normocephalic. EYES: No injection or drainage. NECK: Supple, trachea midline. CARDIOVASCULAR: Regular rate and rhythm RESPIRATORY: Breath sounds equal bilaterally. No accessory muscle use. GASTROINTESTINAL: Abdomen soft, non-tender, nondistended. EXTREMITIES: No cyanosis NEUROLOGICAL: awake and alert, normal speech. moving all extremities. Assessment/Plan Problem List: (1) DVT (deep venous thrombosis) Status: Acute Plan: s/p IVC filter placement. cannot receive ac d/t risk of bleeding (2) GI bleed Status: Resolved Plan: --presented to the emergency room with two episodes of dark stool on . --CT ab/pelvis showed perforation of the proximal duodenum with fluid collection and contrast measuring 9.1 x 2.5 cm. Assessment 60y/o female with bilateral upper extremity and lower extremity deep vein thromboses + GI bleed from a duodenal ulcer. --presented to the emergency room with two episodes of dark stool on 2016. --CT ab/pelvis showed perforation of the proximal duodenum with fluid collection and contrast measuring 9.1 x 2.5 cm. Plan 1. monitor CBC 2. once discharged follow up in clinic. 3. continue to hold anticoagulation. patient high risk of rebleeding. Problem Qualifiers (1) GI bleed: Qualified Code: K29.91 - Gastrointestinal hemorrhage associated with gastroduodenitis Talita Issa Oct 08, 2016 10:38
--- NOTE | 2016-10-08 10:41 | HHI.FF ---
Face to Face Verification Diagnosis: (1) Diabetes (2) Anemia (3) Perforated duodenal ulcer (4) Depression with anxiety (5) Hypoalbuminemia (6) Pleural effusion (7) Hypokalemia Physical Therapy Order: Improve ambulation, Strength and gait training Home Health Nursing Order: Medical education Diabetic education I have seen patient Atiya Lester on 10/08/16. My clinical findings support the need for the requested home health care services because: Ltd mobility - disease progression Deconditioned w/ increased weakness Med compliance is questionable Limited ability to care for self High risk of falls I certify that my clinical findings support that this patient is homebound because: Unsteady gait/balance Anshu Awad MD, R3 Oct 08, 2016 10:41
[2016-10-08] MEDS ORDERED: MAGNESIUM OXIDE 400 MG TAB PO SCH ×2 (10:45→11:00)
[2016-10-08] MEDS ORDERED: METR-1 PO (10:50)
[2016-10-08] MEDS ORDERED: PANT40TA3 PO (10:50)
[2016-10-08] MEDS ORDERED: SUCR1S PO (10:50)
[2016-10-08] MEDS ORDERED: LEVA500T20 PO (10:50)
[2016-10-08] MEDS ORDERED: MIRT15TA2 PO (10:50)
--- NOTE | 2016-10-08 10:52 | HHI.DS ---
Discharge Summary Admission Date Sep 14, 2016 at 12:05 Discharge Date: Oct 08, 2016 Admitting Diagnosis (1) Perforated duodenal ulcer Plan: CT scan 09/14 demonstrates a perforation of the duodenum with an abnormal fluid collection with contrast anterior to the mesenteric vasculature measuring 9.12.5 cm with adjacent stranding in the mesentery. There is no free perforation into the abdominal cavity. Hemoccult 10/04 positive - repeat 10/07 negative. GI consulted, appreciate recommendations and interventions -Continue MiraLAX -Continue Protonix - transition to PO. -Monitor H/H - stable at 9.0 -Gen. surgery was re-consulted due to concern for possible rebleeding as H& Hs were downtrending -Recommend EGD in 2-3 months with possible surgery -IVC filter tolerated well, in-place within Inferior vena cava on Xray General surgery reconsulted, appreciate recommendations -Coumadin is on hold - per hematology is very high risk for re-bleeding given ulcer in distal duodenum. Recommend against restarting anticoagulation given these risks. -IVC filter placed 10/04/16 Medications: Levaquin 500mg po daily (09/26 - ) Diflucan 400mg po daily (09/25- ) Metronidazole 500mg IV Q8hrs (09/14- ) The above to be continued for 2 weeks Rifaximin 550 mg PO BID (09/27 - ) Zosyn 3.375 IV daily discontinued (09/15-08/26 ) Pain control: Roxycodone, IV morphine for breakthrough (2) Hypokalemia Plan: Likely secondary to diarrhea. Potassium on 10/07 was 2.4 -- replete with 80 mEq IV x 1. Corrected to 3.2 on . (3) Abscess Plan: CT scan 09/14 shows 9.12.5 cm fluid collection anterior to the mesenteric vasculature with adjacent stranding in the mesentery. IR drainage performed 09/[address] 09/23 "Basically complete resolution of previously seen abscess with a few gas bubbles and mild haziness remaining the upper abdominal mesentery." Drain has been removed. See ABX above (4) GI bleed Plan: Resolved See plan for perforated lateral ulcer above Status post 4 units packed red blood cells (5) DVT (deep venous thrombosis) Plan: Patient found to have numerous DVTs of the upper and lower extremities. Hematology consulted, appreciate recommendations: -Status post IVC filter placed (10/04/16) (6) Hypoalbuminemia Plan: Albumin low at 2.6 on 10/08 -Likely to improve as pts diet progresses -Continue to monitor -Consider additional albumin as needed -Continue to monitor (7) Depression with anxiety Plan: * Consulted psychiatry, appreciated recommendations * Remeron 15 mg HS * Continue fluoxetine 20 mg po daily * Lorazepam 0.5 mg at bedtime prn anxiety (8) Diabetes Plan: History of chronic diabetes. On insulin at home. -Low dose sliding scale while inpatient, blood sugars have been well controlled. (9) FEN Plan: Fluids:None, pt currently tolerating PO Electrolytes: Continue to monitor Nutrition: Clear diet, consider advancing DVT ppx: held for GI bleed. GI ppx: Protonix PO. Dispo: Medcially clear for discharge. Follow up CBC in 2-3 days. Follow up with PCP in 2-3 days. Follow up with hematology in 2 weeks. Follow up with general surgery in 2-3 months. Warning signs and symptoms reviewed in detail with the patient. She feels ready to go home. Spoke with PT who agree that she is able to ambulate independently, but would benefit from home health care. Procedures Central Line placement 09/26/16, removed 09/27/16, replaced on 09/30/16. IVC filter placed 10/04/16 Brief History 60-year-old female with history of ulcerative colitis, diabetes, IBS presents with dark stools. Patient states that she started having several black stools. States they have been diarrhea. Has had 3 since yesterday. No pain with defecation. Has also felt weak and fatigued today. Feels tired, but denies any headache or dizziness. Patient also states she started having stomach pain yesterday morning. Doesn't know specific spot states it's all over her belly. States it is 8 out of 10. Constant pain. No nausea or vomiting. Denies any coughing of blood. States her stools are very dark, denies any gross blood in her stools. States she has had decreased appetite lately. Was on a steroid taper him last admission. On last admission, she was found to have several ulcers in the duodenum. States she had been doing okay until just yesterday. CBC/BMP: 10/08/16 0743 10/08/16 0743 Significant Findings Laboratory Tests Test 10/06/16 10/07/16 10/08/16 06:30 06:30 07:43 Red Blood Count 3.05 MIL/MM3 3.25 MIL/MM3 3.39 MIL/MM3 (4.00-5.30) (4.00-5.30) (4.00-5.30) Hemoglobin 9.0 GM/DL 9.6 GM/DL 9.8 GM/DL (11.6-15.3) (11.6-15.3) (11.6-15.3) Hematocrit 26.6 % 29.0 % 30.4 % (35.0-46.0) (35.0-46.0) (35.0-46.0) Red Cell Distribution Width 18.1 % 18.6 % 19.4 % (11.6-17.2) (11.6-17.2) (11.6-17.2) Monocytes (%) (Auto) 10.1 % 9.9 % (0.0-8.0) 10.7 % (0.0-8.0) (0.0-8.0) Eosinophils (%) (Auto) 6.6 % (0.0-4.0) 6.0 % (0.0-4.0) 8.2 % (0.0-4.0) Basophils (%) (Auto) 3.8 % (0.0-2.0) 2.4 % (0.0-2.0) 2.5 % (0.0-2.0) Activated Partial 23.8 SEC Thromboplast Time (24.3-30.1) Potassium Level 2.4 MEQ/L 3.2 MEQ/L (3.5-5.1) (3.5-5.1) Chloride Level 110 MEQ/L (98-107) Blood Urea Nitrogen 2 MG/DL (7-18) 4 MG/DL (7-18) Estimat Glomerular Filtration 84 ML/MIN (>89) 56 ML/MIN (>89) Rate Random Glucose 108 MG/DL 136 MG/DL (74-106) (74-106) Calcium Level 6.5 MG/DL 8.2 MG/DL (8.5-10.1) (8.5-10.1) Protein Corrected Calcium 7.1 MG/DL (8.5-10.1) Phosphorus Level 2.0 MG/DL (2.5-4.9) Magnesium Level 1.3 MG/DL (1.5-2.5) Total Protein 5.8 GM/DL (6.4-8.2) Eosinophils # (Auto) 0.5 TH/MM3 (0-0.4) Alanine Aminotransferase 8 U/L (10-53) (ALT/SGPT) Albumin 2.6 GM/DL (3.4-5.0) PE at Discharge GENERAL: This is an elderly female lying in bed, pleasant SKIN: Cool and dry. HEENT: Atraumatic. Normocephalic. Pupils equal round and reactive. Extraocular motions intact. No scleral icterus. No injection or drainage. Trachea midline. CARDIOVASCULAR: Regular rate and rhythm, normal S1/2 no M/R/G RESPIRATORY: Clear to auscultation. Good air movement. No wheezes, rales, or rhonchi. GASTROINTESTINAL: Abdomen soft, non-tender, improving. No guarding. Non- distended. No rebound. No masses appreciated. BS+. Wound examined, healing well. MUSCULOSKELETAL: Edema in upper and lower extremities, trace in upper extremities, 2+ in lower extremities. Mildly tender B/L. No erythema. No unilateral asymmetry. PT/DP pulses 2+ B/L NEUROLOGICAL: Awake and alert. Motor and sensory grossly within normal limits. Normal speech. Hospital Course Patient is a 60-year-old female, who was admitted with a perforated duodenal ulcer. This led to an abscess/sepsis. The abscess was drained via CT guided aspiration. She was placed on broad-spectrum antibiotics, and then transition to by mouth antibiotics. She was also found to have multiple blood clots in the distal and proximal veins both in her lower and upper extremities. She was started on Coumadin therapy, however developed GI bleeding at this time. She required multiple RBC transfusions and stabilized. On 10/04/16 she received an IVC filter, tolerated the procedure well. Her hemoglobin remained stable after this procedure at approximately 9.8 grams per deciliter and a repeat Hemoccult was negative on 10/08/2016. Hematology was consulted, and given her high risk of bleeding recommended against DVT treatment/prophylaxis. She also developed hypokalemia of 2.4, that corrected with 80 mEq of potassium chloride by mouth. She was discharged in stable condition. Pt Condition on Discharge: Stable Discharge Disposition: Discharge Home Discharge Instructions DIET: Follow Instructions for: Diabetic Diet Activities you can perform: Full Weight Bearing New Medications: Alprazolam (Alprazolam) 1 Mg Tab 1 MG PO Q8H PRN ANXIETY #30 Ref 0 TAB Oxycodone Liq (Oxycodone Liq) 10 Mg/0.5 Ml Conc 5 MG PO Q6H #30 ML Levofloxacin (Levaquin) 500 Mg Tablet 500 MG PO DAILY #3 TAB Metronidazole (Flagyl) 500 Mg Tab 500 MG PO Q8HR #9 TAB Mirtazapine ODT (Mirtazapine ODT) 15 Mg Tab 15 MG PO HS #30 Ref 0 TAB Pantoprazole (Pantoprazole) 40 Mg Tab 40 MG PO Q12HR #60 Ref 0 TAB Sucralfate Liq (Sucralfate Liq) 1 Gm/10 Ml Penelope 1 GM PO ACHS #180 ML Continued Medications: Alprazolam (Alprazolam) 1 Mg Tab 1 MG PO Q8H PRN ANXIETY #30 Ref 0 TAB Fluoxetine (Fluoxetine) 20 Mg Capsule 20 MG PO DAILY #30 CAP Pantoprazole (Pantoprazole) 40 Mg Tab 40 MG PO Q12HR #60 TAB Rifaximin (Xifaxan) 550 Mg Tab 550 MG PO BID #60 TAB Sennosides-Docusate Sodium (Sarah-Colace) 8.6-50 Mg Tab 1 TAB PO BID PRN Constipation #60 Ref 0 TAB Sucralfate Liq (Carafate Liq) 1 Gm/10 Ml Susp 1 GM PO ACHS on empty stomach Duodenal ulcer #1200 Ref 0 ML Discontinued Medications: Fluconazole (Fluconazole) 200 Mg Tab 200 MG PO DAILY Infection #30 Ref 0 TAB Hydrocodone-Acetaminophen (Hydrocodone-Acetaminophen) 10-325 mg Tab 1 TAB PO Q4H PRN PAIN 6-10 #30 TAB Insulin Detemir Inj (Levemir Flextouch Pen Inj) 300 unit/3 ML Pen 1 UNITS SQ DIRECTED Take 13 units in the morning before breakfast. Take 9 units at bedtime. Blood Sugar Management #1 Ref 2 PEN Insulin Human Regular Inj (Humulin R Inj) 1,000 Unit/10 Ml Vial 2 UNITS SQ TIDAC IMPORTANT TO EAT A MEAL WITHIN 30-60 MINUTES OF DOSING PRN Blood Sugar Management #10 Ref 0 ML Prednisone (Prednisone) 5 Mg Tab 5 MG PO BID Take 2 tabs daily for 7 days, then take 1 tab daily for 7 days. #21 Ref 0 TAB Anshu Awad MD, R3 Oct 08, 2016 10:52
[2016-10-08 12:00] VITALS: BP 134/70; PULSE 84; RESP 18; TEMP 99.5; O2SAT 94
[2016-10-08] MEDS ORDERED: POTASSIUM CHLORIDE 20 MEQ CONTROLLED RELEASE TAB PO ONE (13:15)
[2016-10-08] MEDS ORDERED: OXYC1CON4 PO (14:16)
[2016-10-08] MEDS ORDERED: ALPR1TAB3 PO (14:16)
[2016-10-08] MEDS: oxyCODONE HCL ORAL CONC 20 MG/ML SYRINGE PO PRN (15:15)
== END 2016-10-08 15:32 | DRG 356 ==
LOC: NEPC 09:40 → NEDA 12:05 → HIMW 18:30 → N04A 09-24 16:40
PROVIDERS: ADMIT Family Medicine; ATTEND Family Medicine
PROC: 0DB68ZX Excision of Stomach, Via Natural or Artificial Opening Endoscopic, Diagnostic (ICD-10-PCS; 2016-09-14)
PROC: 0DB38ZX Excision of Lower Esophagus, Via Natural or Artificial Opening Endoscopic, Diagnostic (ICD-10-PCS; 2016-09-14)
PROC: 30233N1 Transfusion of Nonautologous Red Blood Cells into Peripheral Vein, Percutaneous Approach (ICD-10-PCS; 2016-09-14)
PROC: 0DB98ZX Excision of Duodenum, Via Natural or Artificial Opening Endoscopic, Diagnostic (ICD-10-PCS; principal; 2016-09-14 16:53)
PROC: 0W9G30Z Drainage of Peritoneal Cavity with Drainage Device, Percutaneous Approach (ICD-10-PCS; 2016-09-15)
PROC: 05HN33Z Insertion of Infusion Device into Left Internal Jugular Vein, Percutaneous Approach (ICD-10-PCS; 2016-09-18)
PROC: 02HV33Z Insertion of Infusion Device into Superior Vena Cava, Percutaneous Approach (ICD-10-PCS; 2016-09-26)
PROC: 05H533Z Insertion of Infusion Device into Right Subclavian Vein, Percutaneous Approach (ICD-10-PCS; 2016-09-30)
PROC: 30233K1 Transfusion of Nonautologous Frozen Plasma into Peripheral Vein, Percutaneous Approach (ICD-10-PCS; 2016-10-03)
PROC: 06H03DZ Insertion of Intraluminal Device into Inferior Vena Cava, Percutaneous Approach (ICD-10-PCS; 2016-10-04)
DX: K26.6 Chronic or unspecified duodenal ulcer with both hemorrhage and perforation (principal); K65.1 Peritoneal abscess; A41.9 Sepsis, unspecified organism; N17.9 Acute kidney failure, unspecified; J90 Pleural effusion, not elsewhere classified; J18.9 Pneumonia, unspecified organism; B37.81 Candidal esophagitis; I82.413 Acute embolism and thrombosis of femoral vein, bilateral; D68.51 Activated protein C resistance; D62 Acute posthemorrhagic anemia; I82.A11 Acute embolism and thrombosis of right axillary vein; I82.611 Acute embolism and thrombosis of superficial veins of right upper extremity; I82.433 Acute embolism and thrombosis of popliteal vein, bilateral; I82.443 Acute embolism and thrombosis of tibial vein, bilateral; I82.813 Embolism and thrombosis of superficial veins of lower extremities, bilateral; K51.90 Ulcerative colitis, unspecified, without complications; E88.09 Other disorders of plasma-protein metabolism, not elsewhere classified; K29.80 Duodenitis without bleeding; K44.9 Diaphragmatic hernia without obstruction or gangrene; K29.50 Unspecified chronic gastritis without bleeding; E87.6 Hypokalemia; F43.23 Adjustment disorder with mixed anxiety and depressed mood; E11.9 Type 2 diabetes mellitus without complications; E78.5 Hyperlipidemia, unspecified; G47.00 Insomnia, unspecified; K58.9 Irritable bowel syndrome, unspecified; Y95 Nosocomial condition; Z79.4 Long term (current) use of insulin; Z86.718 Personal history of other venous thrombosis and embolism; Z86.711 Personal history of pulmonary embolism; Z79.52 Long term (current) use of systemic steroids
CPT/HCPCS: 36430; 36556; 37191; 71010; 74176; 74240; 74245; 75989; 76937; 77001; 80048; 80053; 81001; 82040; 82272; 82607; 82728; 82784; 82941; 82948; 83516; 83540; 83550; 83605; 83735; 84100; 84132; 84155; 85007; 85014; 85018; 85025; 85027; 85610; 85652; 85730; 86146; 86147; 86148; 86850; 86900; 86901; 86920; 86927; 87040; 87070; 87071; 87077; 87086; 87186; 87205; 87493; 87641; 88305; 88312; 93970; 94150; 99152; 99153; C1729; C1769; C1880; C9113; J0131; J0610; J0696; J1170; J1450; J1644; J1815; J1940; J2060; J2250; J2270; J2405; J2543; J3010; J3475; J3480; J7030; J7040; J7050; P9016; P9017; P9045; Q9963; Q9967